=== PATIENT | female | born 1940 | race Hispanic/Latino ===

== ENCOUNTER 2016-07-22 11:50 | Emergency (ER) | payer MEDICARE, OTHER ==
[2016-07-22 12:05] VITALS: BMI 35.4
[2016-07-22 12:07] VITALS: TEMP 97.5
--- NOTE | 2016-07-22 12:20 | ED PDOC ---
Arrival/HPI - General Chief Complaint: ENT Problem Time Seen by Provider: 07/22/16 12:09 Historian: Patient - History of Present Illness Narrative History of Present Illness (Text): 07/22/16 12:17 76 y/o female, pmh including htn/copd/hyperlipidemia, allergic to fluoroquinolones, c/o throat pain x 2 days. Aching throat pain, aggravated by swallowing, no coughing, no fever or chills, no bodyache or fatigue, no night sweat, no palpitation, no numbness or tingling, no dizziness, no change in appetize or energy level, no change in speech, no abdominal pain, no other medical or psychological complaints. Past Medical History - Provider Review Nursing Documentation Reviewed: Yes - Infectious Disease Hx of Infectious Diseases: None - Tetanus Immunization Tetanus Immunization: Unknown - Cardiac Hx Cardiac Disorders: Yes Hx Cardiac Arrhythmia: Yes Hx Circulatory Problems: Yes Hx Congestive Heart Failure: Yes Hx Hypertension: Yes Hx Peripheral Edema: Yes - Pulmonary Hx Respiratory Disorders: Yes Hx Bronchitis: Yes Hx Chronic Obstructive Pulmonary Disease (COPD): Yes Hx Emphysema: Yes Hx Respiratory Tract Infection: Yes - Neurological Hx Neurological Disorder: No Hx Dizziness: Yes Hx Migraine: Yes - HEENT Hx HEENT Disorder: Yes Hx Cataracts: Yes (PAST SX) - Renal Hx Renal Disorder: No - Endocrine/Metabolic Hx Endocrine Disorders: No Hx Hypothyroidism: Yes - Hematological/Oncological Hx Blood Disorders: No - Integumentary Hx Dermatological Disorder: No - Musculoskeletal/Rheumatological Hx Degenerative Joint Disease: Yes Hx Falls: No Hx Gout: Yes - Gastrointestinal Hx Gastrointestinal Disorders: No Hx Gall Bladder Disease: Yes - Genitourinary/Gynecological Hx Genitourinary Disorders: No - Psychiatric Hx Psychophysiologic Disorder: Yes Hx Anxiety: Yes Hx Depression: Yes Hx Substance Use: No - Surgical History Hx Cardiac Catheterization: Yes (5 years ago ??) Hx Cholecystectomy: Yes Hx Orthopedic Surgery: Yes ((R) Knee, 20 years ago) Other/Comment: 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 - Anesthesia Hx Anesthesia: No - Suicidal Assessment Feels Threatened In Home Enviroment: No Family/Social History - Physician Review Nursing Documentation Reviewed: Yes Family/Social History: Unknown Family HX Smoking Status: Former Smoker Hx Alcohol Use: No Hx Substance Use: No Allergies/Home Meds Allergies/Adverse Reactions: Allergies levofloxacin [From Levaquin] Allergy (Severe, Verified 07/22/16 12:05) ANAPHYLAXIS Home Medications: Home Meds Medication Instructions Recorded Confirmed Aspirin [Ecotrin] 81 mg PO DAILY 09/01/15 04/22/16 Atorvastatin [Lipitor] 10 mg PO DIN 09/01/15 04/22/16 Cholecalciferol (Vitamin D3) 1,000 iu PO DAILY 09/01/15 04/22/16 [Vitamin D3] Esomeprazole Magnesium [Nexium] 40 mg PO DAILY 09/01/15 04/22/16 Furosemide [Lasix] 40 mg PO BID 09/01/15 04/22/16 Levothyroxine [Synthroid] 100 mcg PO DAILY 09/01/15 04/22/16 Metoprolol Tartrate 50 mg PO .AM 09/01/15 04/22/16 Metoprolol Tartrate [Lopressor] 25 mg PO QPM 09/01/15 04/22/16 Potassium Chloride [K-Dur 20 mEq 20 meq PO DAILY 09/01/15 04/22/16 ER Tab] Albuterol/Ipratropium [Duoneb 3 1 inh INH PRN PRN 04/10/16 04/22/16 mg/0.5 mg (3 ml) UD] Fluticasone/Salmeterol 500/50 1 inh INH BID 04/10/16 04/22/16 [Advair Diskus 500/50] Review of Systems - Review of Systems Constitutional: absent: Fatigue, Fevers Eyes: absent: Vision Changes ENT: Sore Throat. absent: Hearing Changes Respiratory: absent: SOB Cardiovascular: absent: Chest Pain Gastrointestinal: absent: Abdominal Pain, Nausea, Vomiting Skin: absent: Rash, Pruritis, Skin Lesions, Laceration, Abscess, Ulcer, Cellulitis Neurological: absent: Headache, Dizziness, Focal Weakness, Gait Changes, Speech Changes, Facial Droop, Disequilibrium, Seizure Psychiatric: absent: Anxiety, Depression, Suicidal Ideation Physical Exam Vital Signs Reviewed: Yes Vital Signs Temp Pulse Resp BP Pulse Ox 07/22/16 12:07 97.5 F L 79 17 113/60 95 Temperature: Afebrile Blood Pressure: Normal Pulse: Regular Respiratory Rate: Normal Appearance: Positive for: Well-Appearing, Non-Toxic, Comfortable Pain Distress: Mild Mental Status: Positive for: Alert and Oriented X 3 - Systems Exam Head: Present: Atraumatic, Normocephalic Pupils: Present: PERRL Extroacular Muscles: Present: EOMI Conjunctiva: Present: Normal Mouth: Present: Moist Mucous Membranes, Normal Lips, Normal Tounge. No: Trismus Pharnyx: Present: ERYTHEMA. No: EXUDATE, TONSILS ENLARGED, Peritonsilar Swelling, Uvular Deviation, Muffled/Hoarse Voice, Strider, Soft Palate/Uvular Edema Nose (External): Present: Atraumatic. No: Abrasion, Contusion, Laceration Nose (Internal): Present: Normal Inspection, No Active Bleeding. No: Rhinorrhea , Septal Hematoma, Epistaxis Neck: Present: Normal Range of Motion, Lymphadenopathy (lt. anterior cervical), Trachea Midline. No: Meningeal Signs, MIDLINE TENDERNESS, Paraspinal Tenderness , Bruit Respiratory/Chest: Present: Clear to Auscultation, Good Air Exchange. No: Respiratory Distress, Accessory Muscle Use, Wheezes, Decreased Breath Sounds, Rales, Retracting, Rhonchi, Tachypneic, Tender to Palpation, Other Cardiovascular: Present: Regular Rate and Rhythm, Normal S1, S2. No: Murmurs Abdomen: Present: Normal Bowel Sounds. No: Tenderness, Distention, Peritoneal Signs, Rebound, Guarding Back: Present: Normal Inspection Upper Extremity: Present: Normal Inspection. No: Cyanosis, Edema Lower Extremity: Present: Normal Inspection. No: Edema Neurological: Present: GCS=15, Speech Normal, Motor Func Grossly Intact, Gait Normal, Memory Normal Skin: Present: Warm, Dry, Normal Color. No: Rashes Psychiatric: Present: Alert, Oriented x 3, Normal Insight, Normal Concentration Medical Decision Making ED Course and Treatment: 07/22/16 12:20 -rapid strept -observe and reassess 07/22/16 13:09 -rapid strept is negative, there is mild regional lymphenapathy, will put on the amoxicillin. -Discharge home with amoxicillin, tylenol, salt water gargling, soft food diet, stay hydrated, bed rest, follow up with your own pmd and ENT within 2 days, return to the ER for any new or worsening signs or symptoms. - Lab Interpretations Lab Results: Lab Results 07/22/16 12:15: Grp A Beta Strep Ag Negative I have reviewed the lab results: Yes Interpretation: No clinic. 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 Disposition/Present on Arrival - Present on Arrival Any Indicators Present on Arrival: No History of DVT/PE: No History of Uncontrolled Diabetes: No Urinary Catheter: No History of Decub. Ulcer: No History Surgical Site Infection Following: None - Disposition Have Diagnosis and Disposition been Completed?: Yes Diagnosis: Pharyngitis Disposition: HOME/ ROUTINE Disposition Time: 13:10 Patient Plan: Discharge Condition: GOOD Additional Instructions: Discharge home with amoxicillin, tylenol, salt water gargling, soft food diet, stay hydrated, bed rest, follow up with your own pmd and ENT within 2 days, return to the ER for any new or worsening signs or symptoms. Prescriptions: Amoxicillin 500 mg PO TID #30 tab Acetaminophen [Tylenol 325mg tab] 2 tab PO QID PRN #30 tab PRN Reason: Other Referrals: Jesus Coleman DO [[facility]] - Follow up with primary [facility] [Outside] - Follow up with primary Forms: WORK NOTE
[2016-07-22 13:36] VITALS: BP 116/63; PULSE 84; RESP 16; O2SAT 96
== END 2016-07-22 13:25 | disposition home or self-care (01) ==
LOC: ED 11:50
DX: J02.9 Acute pharyngitis, unspecified (principal); Z87.891 Personal history of nicotine dependence

== ENCOUNTER 2016-12-10 07:03 | Day surgery (SDC) | payer MEDICARE, OTHER ==
[2016-11-29 13:50] VITALS: BMI 34.3
[2016-12-10] MEDS ORDERED: Etomidate 20 mg/10ml Inj IV ONE (09:11)
[2016-12-10] MEDS ORDERED: Propofol 10 mg/ml Inj (20 ML) ONE (09:11)
[2016-12-10] MEDS ORDERED: Lidocaine 2% Inj (20ml) ONE (09:11)
[2016-12-10] MEDS ORDERED: Sodium Chloride 0.9% 1,000 ML IV SCH (10:00)
[2016-12-10 10:44] VITALS: BP 118/64; PULSE 73; RESP 18; TEMP 97.5; O2SAT 95
== END 2016-12-10 11:27 | disposition home or self-care (01) ==
LOC: ENDO 07:03
PROVIDERS: ATTEND Internal Medicine Gastroenterology
DX: Z12.11 Encounter for screening for malignant neoplasm of colon (principal); D12.0 Benign neoplasm of cecum; K63.5 Polyp of colon; K62.1 Rectal polyp; K57.30 Diverticulosis of large intestine without perforation or abscess without bleeding; K64.8 Other hemorrhoids; K62.3 Rectal prolapse
CPT/HCPCS: 45381; 45385; 88305; J2704; J7040 ×2

== ENCOUNTER 2017-05-20 09:14 | Observation (INO) | payer MEDICARE, OTHER ==
[2017-05-20 09:25] VITALS: BMI 33.5
[2017-05-20] MEDS ORDERED: Albuterol-Ipratrop 3 mg / 0.5 (3 ml) UD IH STA (10:02)
[2017-05-20 10:08] LABS: BASO # 0.01 K/mm3 (0.0-2.0); BASO % 0.1 % (0.0-3.0); EOS # 0.2 (0.0-0.7); EOS % 2.2 % (1.5-5.0); GRAN # 4.61 (1.4-6.5); GRAN % 59.1 % (50.0-68.0); LYMPH # 2.3 (1.2-3.4); LYMPH % 28.9 % (22.0-35.0); MEAN CELL VOLUME 92.1 fl (80.0-105.0); MEAN CORPUSCULAR HEMOGLOBIN 31.3 pg (25.0-35.0); MEAN PLATELET VOLUME 11.2 fl (7.0-11.0); MONO # 0.8 (0.1-0.6); MONO % 9.7 % (1.0-6.0); RBC 4.79 10^6/uL (3.5-6.1); RED CELL DISTRIBUTION WIDTH 13.6 % (11.5-14.5); WHITE BLOOD COUNT 7.8 10^3/ul (4.5-11.0)
--- NOTE | 2017-05-20 10:15 | ED PDOC ---
Arrival/HPI - General Chief Complaint: Shortness Of Breath Time Seen by Provider: 05/20/17 09:56 Historian: Patient - History of Present Illness Narrative History of Present Illness (Text): 05/20/17 10:15 75 year old female, whose past medical history includes COPD, hypertension, rheumatic fever/ heart disease, hyperlipidemia, hypothyroidism, GERD, depression , CHF with diastolic dysfunction, and A fib s/p pacemaker, presents to the emergency department complaining of mild URI symptoms including cough congestion , shortness of breathing and wheezing for the past 4-5 days. Patient also reports bilateral lower extremity swelling and pain. She states she quit smoking 1 year ago and denies alcohol use. Patient denies any fever, chills, chest pain, abdominal pain, nausea, vomiting, diarrhea, urinary symptoms, back pain, neck pain, headache, dizziness, or any other complaints. Time/Duration: Other (2-3 days) Symptom Onset: Gradual Symptom Course: Unchanged Activities at Onset: Light Context: Home Past Medical History - Provider Review Nursing Documentation Reviewed: Yes - Infectious Disease Hx of Infectious Diseases: None - Tetanus Immunization Tetanus Immunization: Unknown - Reproductive Menopause: Yes - Cardiac Hx Cardiac Disorders: Yes Hx Congestive Heart Failure: Yes Hx Hypertension: Yes Hx Pacemaker: Yes - Pulmonary Hx Respiratory Disorders: Yes Hx Bronchitis: Yes Hx Chronic Obstructive Pulmonary Disease (COPD): Yes Hx Emphysema: Yes Hx Respiratory Tract Infection: Yes - Neurological Hx Paralysis: No - HEENT Hx HEENT Disorder: Yes Hx Cataracts: Yes (PAST SX) - Renal Hx Renal Disorder: No - Endocrine/Metabolic Hx Endocrine Disorders: No Hx Hypothyroidism: Yes - Hematological/Oncological Hx Blood Transfusions: No - Integumentary Hx Dermatological Disorder: No - Musculoskeletal/Rheumatological Hx Musculoskeletal Disorders: Yes (PINCHED NERVE L SHOULDER ON & OFF) - Gastrointestinal Hx Gastrointestinal Disorders: No Hx Gall Bladder Disease: Yes - Genitourinary/Gynecological Hx Genitourinary Disorders: No - Psychiatric Hx Emotional Abuse: No Hx Physical Abuse: No Hx Substance Use: No - Surgical History Hx Cardiac Catheterization: Yes (5 years ago ??) Hx Cholecystectomy: Yes Hx Orthopedic Surgery: Yes ((R) Knee, 20 years ago) Other/Comment: 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 - Anesthesia Hx Anesthesia: Yes Hx Anesthesia Reactions: No Hx Malignant Hyperthermia: No - Suicidal Assessment Feels Threatened In Home Enviroment: No Family/Social History - Physician Review Nursing Documentation Reviewed: Yes Family/Social History: No Known Family HX Smoking Status: Former Smoker Hx Alcohol Use: No Hx Substance Use: No Allergies/Home Meds Allergies/Adverse Reactions: Allergies levofloxacin [From Levaquin] Allergy (Severe, Verified 07/22/16 12:05) ANAPHYLAXIS Home Medications: Home Meds Medication Instructions Recorded Confirmed Aspirin [Ecotrin] 81 mg PO DAILY 09/01/15 05/20/17 Atorvastatin [Lipitor] 10 mg PO DIN 09/01/15 05/20/17 Cholecalciferol (Vitamin D3) 1,000 iu PO DAILY 09/01/15 05/20/17 [Vitamin D3] Esomeprazole Magnesium [Nexium] 40 mg PO DAILY 09/01/15 05/20/17 Furosemide [Lasix] 40 mg PO DAILY 09/01/15 05/20/17 Levothyroxine [Synthroid] 100 mcg PO DAILY 09/01/15 05/20/17 Metoprolol Tartrate 25 mg PO .AM 09/01/15 05/20/17 Metoprolol Tartrate [Lopressor] 25 mg PO QPM 09/01/15 05/20/17 Potassium Chloride [K-Dur 20 mEq 20 meq PO DAILY 09/01/15 05/20/17 ER Tab] Albuterol/Ipratropium [Duoneb 3 1 inh INH PRN PRN 04/10/16 05/20/17 mg/0.5 mg (3 ml) UD] Fluticasone/Salmeterol 500/50 1 inh INH BID 04/10/16 05/20/17 [Advair Diskus 500/50] Review of Systems - Physician Review All systems were reviewed & negative as marked: Yes - Review of Systems Constitutional: absent: Fevers, Other (Chills) Respiratory: SOB, Wheezing, Other (cough congestion) Cardiovascular: absent: Chest Pain Gastrointestinal: absent: Abdominal Pain, Diarrhea, Nausea, Vomiting Genitourinary Female: absent: Dysuria, Frequency, Hematuria Musculoskeletal: absent: Back Pain, Neck Pain Neurological: absent: Headache, Dizziness Physical Exam Vital Signs Reviewed: Yes Vital Signs Temp Pulse Resp BP Pulse Ox 05/20/17 16:12 78 122/69 05/20/17 12:20 82 18 116/66 96 05/20/17 09:25 97 F L 74 18 126/55 L 98 Temperature: Afebrile Blood Pressure: Normal Pulse: Regular Respiratory Rate: Normal Appearance: Positive for: Well-Appearing, Non-Toxic, Comfortable Pain Distress: None Mental Status: Positive for: Alert and Oriented X 3 - Systems Exam Head: Present: Atraumatic, Normocephalic Pupils: Present: PERRL Extroacular Muscles: Present: EOMI Conjunctiva: Present: Normal Mouth: Present: Moist Mucous Membranes Neck: Present: Normal Range of Motion Respiratory/Chest: Present: Wheezes (Mild wheezing bilaterally ). No: Respiratory Distress, Accessory Muscle Use, Rales, Rhonchi Cardiovascular: Present: Regular Rate and Rhythm, Normal S1, S2. No: Murmurs Abdomen: Present: Normal Bowel Sounds. No: Tenderness, Distention, Peritoneal Signs Back: Present: Normal Inspection Upper Extremity: Present: Normal Inspection. No: Cyanosis, Edema Lower Extremity: Present: Normal Inspection, Edema (Bilateral lower extremity trace edema), Other (Bilateral lower leg blanching, erythema, and tenderness. ) Neurological: Present: GCS=15, CN II-XII Intact, Speech Normal Skin: Present: Warm, Dry, Normal Color. No: Rashes Psychiatric: Present: Alert, Oriented x 3, Normal Insight, Normal Concentration Medical Decision Making ED Course and Treatment: 05/20/17 10:15 Impression: 76 year old female presents complaining of URI symptoms cough congestions associated with shortness of breath, wheezing, and bilateral lower extremity swelling and pain that began 4-5 days ago. Plan: -- EKG -- Labs -- Chest X-ray -- Duoneb -- Influenza A B -- Duplex Lower Extrem Makeda Bilat US -- Reassess and disposition Prior Visits: Notes and results from previous visits were reviewed. Patient was last seen in the emergency department on 07/22/16 presents complaining of throat pain for that fast 2 days. patient was discharged. Progress Notes: 05/20/17 13:[address] Solomon who is aware with the plan and wants hospitalist to admit. 05/20/17 13:37 EKG shows normal sinus rhythm rate approximately 75 with a primary AV block and nonspecific T-wave changes with no acute changes 05/20/17 16:42 X-ray chest 1 view shows no infiltrate effusion or cardiomegaly. - Lab Interpretations Lab Results: 05/20/17 09:45 05/20/17 10:46 Lab Results 05/20/17 10:46: Sodium 137, Potassium 2.8 L* D, Chloride 88 L, Carbon Dioxide 35 H, Anion Gap 17, BUN 29 H, Creatinine 1.0, Est GFR ( Amer) > 60, Est GFR (Non-Af Amer) 54, Random Glucose 135 H, Calcium 10.7 H, Total Bilirubin 0.8 , AST 30, ALT 26, Alkaline Phosphatase 106, Lactate Dehydrogenase 430, Total Creatine Kinase 82, Troponin I < 0.01, NT-Pro-B Natriuret Pep 125, Total Protein 8.1, Albumin 4.6, Globulin 3.5, Albumin/Globulin Ratio 1.3 05/20/17 10:00: Influenza Typ A,B (EIA) Negative for flu a/b 05/20/17 09:45: PT 11.4, INR 0.99, APTT 33.9 05/20/17 09:45: WBC 7.8, RBC 4.79, Hgb 15.0, Hct 44.1, MCV 92.1, MCH 31.3, MCHC 34.0, RDW 13.6, Plt Count 210, MPV 11.2 H, Gran % 59.1, Lymph % (Auto) 28.9, York % (Auto) 9.7 H, Eos % (Auto) 2.2, Baso % (Auto) 0.1, Gran # 4.61, Lymph # 2.3, York # 0.8 H, Eos # 0.2, Baso # 0.01 I have reviewed the lab results: Yes - RAD Interpretation Radiology Orders: 05/20/17 09:57 CHEST PORTABLE [RAD] Stat 05/20/17 10:03 DUPLEX LOWER EXTRM VEIN BILAT [US] Stat Bilateral lower extremity venous Doppler is read by the radiologist is negative for DVT. Library Monitor: Radiologist - EKG Interpretation Interpreted by ED Physician: Yes Type: 12 lead EKG - Medication Orders Current Medication Orders: Acetylcysteine (Acetylcysteine 20%) 4 ml IH [id number] GRETEL Albuterol/Ipratropium (Duoneb 3 Mg/0.5 Mg (3 Ml) Ud) 3 ml IH Q2H PRN PRN Reason: Shortness of Breath Albuterol/Ipratropium (Duoneb 3 Mg/0.5 Mg (3 Ml) Ud) 3 ml IH [id number] [facility] Last Admin: 05/20/17 16:14 Dose: 3 ml Alprazolam (Xanax) 0.25 mg PO BID PRN; Protocol PRN Reason: Anxiety Stop: 05/27/17 14:48 Aspirin (Ecotrin) 81 mg PO DAILY [facility] Last Admin: 05/20/17 16:12 Dose: 81 mg Atorvastatin Calcium (Lipitor) 10 mg PO DIN [facility] Azithromycin (Zithromax) 250 mg PO DAILY [facility] PRN Reason: Protocol Stop: 05/23/17 10:01 Last Admin: 05/20/17 16:23 Dose: 250 mg Benzocaine/Menthol (Cepacol Sore Throat) 1 doc MT Q2H PRN PRN Reason: Sore Throat Cholecalciferol (Vitamin D) 1,000 intlu PO DAILY [facility] Last Admin: 05/20/17 16:30 Dose: 1,000 intlu Furosemide (Lasix) 40 mg PO DAILY [facility] Guaifenesin/Dextromethorphan (Robitussin Dm) 5 ml PO Q4H PRN PRN Reason: Cough Heparin Sodium (Porcine) (Heparin) 5,000 units SC Q12 [facility] PRN Reason: Protocol Ceftriaxone Sodium (Rocephin 2 Gm Ivpb) 2 gm in 100 mls @ 100 mls/hr IVPB DAILY [facility] PRN Reason: Protocol Stop: 05/24/17 10:59 Levothyroxine Sodium (Synthroid) 100 mcg PO DAILY [facility] Last Admin: 05/20/17 16:30 Dose: 100 mcg Metoprolol Tartrate (Lopressor) 25 mg PO QPM [facility] Metoprolol Tartrate (Lopressor) 25 mg PO .AM [facility] Last Admin: 05/20/17 16:12 Dose: 25 mg MAR Pulse and Blood Pressure Document 05/20/17 16:12 LA (Rec: 05/20/17 16:14 LA [id number]) Pulse Pulse Rate (60-90) 78 Blood Pressure Blood Pressure (100/60-150/90) 122/69 Montelukast Sodium (Singulair) 10 mg PO HS [facility] Pantoprazole Sodium (Protonix Ec Tab) 40 mg PO 0600 [facility] Potassium Chloride (K-Dur 20 Meq Er Tab) 20 meq PO DAILY [facility] Last Admin: 05/20/17 16:12 Dose: 20 meq Discontinued Medications Albuterol/Ipratropium (Duoneb 3 Mg/0.5 Mg (3 Ml) Ud) 3 ml IH ONCE STA Stop: 05/20/17 10:03 Last Admin: 05/20/17 10:16 Dose: 3 ml Potassium Chloride (Potassium Chloride Oral Soln) 40 meq PO STAT STA Stop: 05/20/17 12:02 Last Admin: 05/20/17 12:16 Dose: 40 meq Potassium Chloride (Potassium Chloride Oral Soln) 20 meq PO STAT STA Stop: 05/20/17 12:02 Last Admin: 05/20/17 12:17 Dose: 20 meq - Scribe Statement The provider has reviewed the documentation as recorded by the Blayne Padilla Provider Scribe Attestation: All medical record entries made by the Chikiibyazan were at my direction and personally dictated by me. I have reviewed the chart and agree that the record accurately reflects my personal performance of the history, physical exam, medical decision making, and the department course for this patient. I have also personally directed, reviewed, and agree with the discharge instructions and disposition. Disposition/Present on Arrival - Present on Arrival Any Indicators Present on Arrival: No History of DVT/PE: No History of Uncontrolled Diabetes: No Urinary Catheter: No History of Decub. Ulcer: No History Surgical Site Infection Following: None - Disposition Have Diagnosis and Disposition been Completed?: Yes Diagnosis: COPD exacerbation, CHF exacerbation, Hypokalemia, Dyspnea Disposition: HOSPITALIZED Disposition Time: 13:38 Patient Plan: Observation, Telemetry Patient Problems: Current Active Problems Problem Status Onset CHF exacerbation Acute COPD exacerbation Acute Dyspnea Acute Hypokalemia Acute Condition: IMPROVED
[2017-05-20 10:33] LABS: INR 0.99 (0.93-1.08); PARTIAL THROMBOPLASTIN TIME 33.9 Seconds (25.1-36.5); PROTHROMBIN TIME 11.4 SECONDS (9.4-12.5)
[2017-05-20 11:07] LABS: ALB/GLOB RATIO 1.3 (1.1-1.8); ALBUMIN 4.6 g/dL (3.0-4.8); ALT/SGPT 26 U/L (7-56); AST/SGOT 30 U/L (14-36); BLOOD UREA NITROGEN 29 mg/dL (7-21); CALCIUM 10.7 mg/dL (8.4-10.5); GFR AFRICAN-AMERICAN > 60; GFR NON-AFRICAN AMERICAN 54
[2017-05-20 11:11] LABS: B-TYPE NATRIURETIC PEPTIDE 125 pg/mL (0-450); TROPONIN I < 0.01 ng/mL
[2017-05-20] MEDS ORDERED: Potassium Chloride 40 mEq/30 ml LIQ UD PO STA (12:01)
[2017-05-20] MEDS ORDERED: Potassium Chloride 20 mEq/15 ml LIQ UD PO STA (12:01)
--- NOTE | 2017-05-20 14:07 | RAD ---
HISTORY: shortness of breath COMPARISON: 05/29/2016 FINDINGS: LUNGS: No active pulmonary disease. PLEURA: No significant pleural effusion identified, no pneumothorax apparent. CARDIOVASCULAR: Normal. OSSEOUS STRUCTURES: No significant abnormalities. VISUALIZED UPPER ABDOMEN: Normal. OTHER FINDINGS: Dual lead pacemaker IMPRESSION: No active disease.
[2017-05-20] MEDS ORDERED: Albuterol-Ipratrop 3 mg / 0.5 (3 ml) UD IH PRN (14:51)
[2017-05-20] MEDS ORDERED: Non Formulary Medication (Furosemide [Lasix] 40 MG) PO SCH (15:00)
--- NOTE | 2017-05-20 15:00 | CP.PCM.HP ---
<Byron Cortes - Last Filed: 05/20/17 21:45> History of Present Illness - History of Present Illness History of Present Illness: Byron Cortes PGY 1 IM H&P Note Ms. Kimball is a 76 yo female with a PMH of COPD, CHF, hypertension, rheumatic fever as a child w/ heart disease sequela, hyperlipidemia, hypothyroidism, GERD , depression, gout, colonic polyps s/p multiple polypectomies and arrhythmia ( unclear if Afib or not) s/p pacemaker who presents with 5 days of weakness, shortness of breath, and productive cough. Patients states that she went to see Dr. Solomon (PMD and Agricultural Agent) about 5 days ago and he changed her diuretic medication and placed on her on potassium supplementation. She states that 3 days ago, she woke up feeling weak but attributed it to dehydration from her increased urination 2/2 the diuretic and hydrated herself and felt better. She also states that she was prescribed Zpak and finished 2 days of it so far. She states that this morning, she felt weak, got short of breath and had a cough/ congestion. At baseline, she has swollen legs and is short of breath with exertion (1/2 block before dyspnea, requires multiple pillows for sleep and cannot lay flat), and these symptoms have not been exacerbated. She states that she gets these episodes when the weather changes, about three times a year. 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 She is compliant with her medications at home, and uses CPAP at night. Patient denies chest pain, headaches, changes in vision/hearing, abdominal pain, weakness, numbness/ tingling, n/v/d, fevers/chills. 12-pt ROS was reviewed and is otherwise unremarkable. PMD: Dr. Solomon PMH: as above PSH: cholecystectomy, R knee surgery, pacemaker Meds: Reviewed on JUN ALL: Levofloxacin SHx: former smoker (quit 1 yr ago), social ETOH use, denies drug use; uses cane for assistance; lives with daughter who has sick kids at home FHx: Heart disease on both sides Present on Admission - Present on Admission Any Indicators Present on Admission: No Review of Systems - Review of Systems All systems: reviewed and no additional remarkable complaints except (as per HPI ) Past Patient History - Infectious Disease Hx of Infectious Diseases: None - Tetanus Immunizations Tetanus Immunization: Unknown - Past Medical History & Family History Past Medical History?: Yes - Past Social History Smoking Status: Former Smoker Alcohol: Social Drugs: Denies Home Situation {Lives}: With Family - CARDIAC Hx Cardiac Disorders: Yes Hx Congestive Heart Failure: Yes Hx Hypercholesterolemia: Yes Hx Hypertension: Yes Hx Pacemaker: Yes - PULMONARY Hx Respiratory Disorders: Yes Hx Chronic Obstructive Pulmonary Disease (COPD): Yes Hx Respiratory Tract Infection: Yes - NEUROLOGICAL Hx Neurological Disorder: No Hx Paralysis: No - HEENT Hx HEENT Problems: Yes Hx Cataracts: Yes (PAST SX) - RENAL Hx Chronic Kidney Disease: No - ENDOCRINE/METABOLIC Hx Hypothyroidism: Yes - HEMATOLOGICAL/ONCOLOGICAL Hx Blood Disorders: No Hx Blood Transfusions: No - INTEGUMENTARY Hx Dermatological Problems: No - MUSCULOSKELETAL/RHEUMATOLOGICAL Hx Musculoskeletal Disorders: Yes (PINCHED NERVE L SHOULDER ON & OFF) - GASTROINTESTINAL Hx Gastrointestinal Disorders: No Hx Gall Bladder Disease: Yes Other/Comment: multiple colon polyps s/p colonoscopies and removal - GENITOURINARY/GYNECOLOGICAL Hx Genitourinary Disorders: No - PSYCHIATRIC Hx Psychophysiologic Disorder: No Hx Emotional Abuse: No Hx Physical Abuse: No Hx Substance Use: No - SURGICAL HISTORY Hx Cardiac Catheterization: Yes (5 years ago ??) Hx Cholecystectomy: Yes Hx Orthopedic Surgery: Yes ((R) Knee, 20 years ago) Other/Comment: 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 - ANESTHESIA Hx Anesthesia: Yes Hx Anesthesia Reactions: No Hx Malignant Hyperthermia: No Meds Allergies/Adverse Reactions: Allergies Allergy/AdvReac Type Severity Reaction Status Date / Time levofloxacin [From Levaquin] Allergy Severe ANAPHYLAXIS Verified 07/22/16 12:05 Physical Exam - Constitutional Appears: Well, Non-toxic, No Acute Distress - Head Exam Head Exam: ATRAUMATIC, NORMAL INSPECTION - Eye Exam Eye Exam: EOMI, Normal appearance, PERRL Pupil Exam: NORMAL ACCOMODATION - ENT Exam ENT Exam: Mucous Membranes Moist, Normal Exam - Neck Exam Neck exam: Positive for: Normal Inspection. Negative for: Lymphadenopathy, Tenderness - Respiratory Exam Respiratory Exam: Rhonchi, Wheezes, NORMAL BREATHING PATTERN. absent: Accessory Muscle Use, Rales, Respiratory Distress - Cardiovascular Exam Cardiovascular Exam: RRR, +S1, +S2 - GI/Abdominal Exam GI & Abdominal Exam: Normal Bowel Sounds, Soft. absent: Distended, Tenderness - Extremities Exam Extremities exam: Positive for: full ROM, pedal edema (1+), pedal pulses present. Negative for: calf tenderness, joint swelling - Back Exam Back exam: NORMAL INSPECTION - Neurological Exam Neurological exam: Alert, CN II-XII Intact, Oriented x3 - Psychiatric Exam Psychiatric exam: Normal Affect, Normal Mood - Skin Skin Exam: Normal Color, Warm Additional comments: b/l LE erythema Results - Vital Signs Recent Vital Signs: Last Vital Signs Temp 97 F L 05/20/17 09:25 Pulse 82 05/20/17 12:20 Resp 18 05/20/17 12:20 BP 116/66 05/20/17 12:20 Pulse Ox 96 05/20/17 12:20 - Labs Result Diagrams: 05/20/17 09:45 05/20/17 10:46 Assessment & Plan - Assessment and Plan (Free Text) Assessment: 76 yo female with a PMH of COPD, CHF, hypertension, rheumatic fever as a child w / heart disease sequela, hyperlipidemia, hypothyroidism, GERD, depression, gout , colonic polyps s/p multiple polypectomies and arrhythmia (unclear if Afib or not) s/p pacemaker who presents with 5 days of weakness, shortness of breath, and productive cough likely 2/2 COPD exacerbation. Despite hx of CHF, BNP is not elevated, no crackles heard on exam and CXR is unremarkable making CHF exacerbation less likely. Troponin I x1 negative and EKG showed sinus rhythm with 1st degree AV block. Flu was negative. Plan: 1. SOB and cough 2/2 COPD exacerbation - Duoneb GRETEL and PRN - Mucomyst GRETEL - Rocephin and Zithromax - cont Cepacol, Robitussin, and Singulair - keep head of bed elevated - strict I/O - CPAP HS - pulm consulted, recs appreciated 2. Leg erythema and swelling likely 2/2 poor vascular circulation - LE US negative for DVT 3. Hx CHF - cont home Lasix - strict I/O - no baseline echo, so will order echo - AE hose ordered - Cardio consulted, recs appreciated 4. Hypokalemia likely 2/2 diuretic use - continue K-Dur daily - supplement as needed - cont to monitor 5. Hx HTN - cont to monitor 6. Hx HLD - Lipitor 7. HX arryhthmia - cont Lopressor home dose 25mg PO AMHS 8. Hx Hypothyroid - cont synthroid 9. PPX - PTX for GI PPX - Heparin for DVT PPX Patient was seen, examined and discussed with attending, Dr. Cathy Cortes Y1 <Destinee Morgan - Last Filed: 05/21/17 19:00> Results - Vital Signs Recent Vital Signs: Last Vital Signs Temp 97.6 F 05/21/17 12:00 Pulse 86 05/21/17 14:00 Resp 20 05/21/17 12:00 BP 129/65 05/21/17 14:06 Pulse Ox 97 05/21/17 06:00 - Labs Result Diagrams: 05/21/17 06:45 05/21/17 06:45 Labs: Laboratory Results - last 24 hr 05/20/17 05/21/17 05/21/17 22:52 06:30 06:30 WBC RBC Hgb Hct MCV MCH MCHC RDW Plt Count MPV Sodium 137 Potassium 3.1 L Chloride 87 L Carbon Dioxide 37 H Anion Gap 16 BUN 31 H Creatinine 1.3 H Est GFR ( Amer) 48 Est GFR (Non-Af Amer) 40 Random Glucose 129 H Hemoglobin A1c Calcium 11.1 H Phosphorus 3.7 Magnesium 1.9 Total Bilirubin AST ALT Alkaline Phosphatase Total Protein Albumin Globulin Albumin/Globulin Ratio Triglycerides 141 Cholesterol 180 LDL Cholesterol Direct 96 HDL Cholesterol 54 TSH 3rd Generation 4.99 H 05/21/17 05/21/17 05/21/17 06:45 06:45 10:30 WBC 9.2 RBC 4.59 Hgb 13.9 Hct 42.0 MCV 91.5 MCH 30.3 MCHC 33.1 RDW 13.9 Plt Count 209 MPV 10.8 Sodium 140 Potassium 3.8 Chloride 93 L Carbon Dioxide 35 H Anion Gap 16 BUN 31 H Creatinine 1.0 Est GFR ( Amer) > 60 Est GFR (Non-Af Amer) 54 Random Glucose 144 H Hemoglobin A1c 6.2 Calcium 10.7 H Phosphorus Magnesium Total Bilirubin 0.6 AST 26 ALT 24 Alkaline Phosphatase 106 Total Protein 7.7 Albumin 4.3 Globulin 3.4 Albumin/Globulin Ratio 1.3 Triglycerides Cholesterol LDL Cholesterol Direct HDL Cholesterol TSH 3rd Generation Attending/Attestation - Attestation I have personally seen and examined this patient.: Yes I have fully participated in the care of the patient.: Yes I have reviewed all pertinent clinical information: Yes Notes (Text): I have seen and examined the patient at bedside. Agree with the above note with the following additions/ exceptions: Briefly this is 76 year old female with history of COPD, CHF (unknown if systolic or diastolic), hypertension, hyperlipidemia, hypothyroidism, GERD, depression, gout, colonic polyps s/p multiple polypectomies and s/p pacemaker who came for eval of COPD exacerbation. Patient was started on IV solumedrol, IV antibiotics, cepachol and robitussin. Echo will be ordered. She also has hypokalemia which will be replaced. Upon discharge patient will follow up with Dr Solomon. Dr Destinee Morgan
--- NOTE | 2017-05-20 15:50 | US ---
HISTORY: Leg pain and swelling. Evaluate for DVT PHYSICIAN(S): Valentin Mai MD. TECHNIQUE: Duplex sonography and color-flow Doppler with graded compression were used to evaluate the deep venous systems of both lower extremities. FINDINGS: The visualized deep venous systems of both lower extremities are sonographically normal and compressible. Normal wave forms and augmentation are seen. There is no sonographic evidence for deep venous thrombosis in the visualized segments of both lower extremities. IMPRESSION: No sonographic evidence for deep venous thrombosis in the visualized segments of both lower extremities.
[2017-05-20] MEDS ORDERED: guaiFENesin DM 100 mg-10 mg/5 ml UD PO PRN (16:01)
[2017-05-20] MEDS ORDERED: Benzocaine/Menthol (Cepacol) Lozenge MT PRN (16:01)
[2017-05-20] MEDS: Potassium Chloride 20 mEq ER Tab PO SCH (16:12)
[2017-05-20] MEDS: Albuterol-Ipratrop 3 mg / 0.5 (3 ml) UD IH SCH ×2 (16:14→21:36)
[2017-05-20] MEDS: Cholecalciferol 1,000 INTLU TAB PO SCH (16:30)
[2017-05-20] MEDS: Levothyroxine 100 MCG TAB PO SCH (16:30)
[2017-05-20] MEDS: cefTRIAXone 2 GM IN NS 2 GM/100 ML BAG IVPB SCH (17:09)
--- NOTE | 2017-05-20 17:26 | CARD ---
APPROVED REPORT EKG Measurement Heart [id number] <Conclusion> Sinus rhythm with 1st degree AV block Rightward axis T wave abnormality, consider anterior ischemia Abnormal ECG
[2017-05-20 23:12] LABS: CALCIUM 11.1 mg/dL (8.4-10.5); MAGNESIUM 1.9 mg/dL (1.7-2.2)
[2017-05-20] MEDS ORDERED: Potassium Chloride 40 mEq/30 ml LIQ UD PO ONE (23:33)
[2017-05-21] MEDS: Albuterol-Ipratrop 3 mg / 0.5 (3 ml) UD IH SCH ×4 (00:30→12:09)
[2017-05-21] MEDS: Acetylcysteine 20% Inhal Soln (4ml) IH SCH ×3 (00:31→08:25)
[2017-05-21] MEDS ORDERED: Potassium Chloride 20 mEq ER Tab PO STA (05:11)
[2017-05-21] MEDS ORDERED: Sodium Chloride 0.9% 1,000 ML IV SCH (05:15)
[2017-05-21] MEDS ORDERED: Pantoprazole 40 mg EC Tab PO SCH (06:00)
[2017-05-21 06:14] VITALS: O2SAT 97
[2017-05-21 07:24] LABS: HEMOGLOBIN 13.9 g/dL (12.0-16.0); MEAN CELL VOLUME 91.5 fl (80.0-105.0); MEAN CORPUSCULAR HEMOGLOBIN 30.3 pg (25.0-35.0); MEAN CORPUSCULAR HGB CONC 33.1 g/dl (31.0-37.0); MEAN PLATELET VOLUME 10.8 fl (7.0-11.0); RBC 4.59 10^6/uL (3.5-6.1); RED CELL DISTRIBUTION WIDTH 13.9 % (11.5-14.5); WHITE BLOOD COUNT 9.2 10^3/ul (4.5-11.0)
[2017-05-21] MEDS ORDERED: Budesonide 0.5 mg/2 ml Inhal Susp UD IH SCH (08:00)
[2017-05-21 08:02] LABS: ALB/GLOB RATIO 1.3 (1.1-1.8); ALBUMIN 4.3 g/dL (3.0-4.8); ALT/SGPT 24 U/L (7-56); AST/SGOT 26 U/L (14-36); BLOOD UREA NITROGEN 31 mg/dL (7-21); CALCIUM 10.7 mg/dL (8.4-10.5); GFR AFRICAN-AMERICAN > 60; GFR NON-AFRICAN AMERICAN 54
[2017-05-21] MEDS: Potassium Chloride 20 mEq ER Tab PO SCH (09:20)
[2017-05-21] MEDS: Levothyroxine 100 MCG TAB PO SCH (09:21)
[2017-05-21] MEDS: Cholecalciferol 1,000 INTLU TAB PO SCH (09:21)
[2017-05-21] MEDS ORDERED: Potassium Chloride 20 mEq ER Tab PO ONE ×2 (09:53→15:00)
[2017-05-21] MEDS ORDERED: MethylPREDNISolone 40 mg Vial IVP SCH (10:00)
[2017-05-21] MEDS: cefTRIAXone 2 GM IN NS 2 GM/100 ML BAG IVPB SCH (10:01)
[2017-05-21 10:50] LABS: HDL CHOLESTEROL 54 mg/dL (29-60)
[2017-05-21 11:00] LABS: LDL CHOLESTEROL 96 mg/dL (0-129)
--- NOTE | 2017-05-21 12:05 | CON ---
DATE: 05/21/2017 PULMONARY CONSULTATION REASON FOR CONSULTATION: Chronic obstructive pulmonary disease. REFERRING PHYSICIAN: Jefferson Joe MD HISTORY OF PRESENT ILLNESS: The patient is a 76-year-old female, with past medical history significant for advanced chronic obstructive pulmonary disease, positive extensive smoking history, congestive heart failure, cardiac arrhythmias, and status post pacemaker insertion, who presents to [facility] with increasing shortness of breath at rest, dyspnea on exertion, cough, and sputum production for the past 5 days. There is no history of chest pain, coughing up of blood or chest pain - made worse with deep respirations. There is no history of temperatures, chills or infectious exposure. There is no history of night sweats, weight loss or appetite change prior to the above events. No history of calf pains. No history of syncope or diaphoresis. No history of recent travel or trauma. REVIEW OF SYSTEMS: No history of nausea, vomiting or diarrhea. No acute urinary symptoms. No new neurologic or musculoskeletal complaints. Rest of the review of systems is negative. ALLERGIES: LEVAQUIN. SOCIAL HISTORY: Positive for extensive tobacco usage. No alcohol. FAMILY HISTORY: No inheritable diseases. HOME MEDICATIONS: Include DuoNebs, Lopressor, Synthroid, Lasix, Advair, Nexium, Lipitor, Ecotrin, and Xanax. PHYSICAL EXAMINATION: GENERAL: The patient is not short of breath at rest. She is not using accessory muscles for breathing. VITAL SIGNS: Temperature is 97.9, pulse is 88, respirations are 18, and blood pressure is 125/64. Oxygen saturation on nasal cannula is 97%. HEENT: Normocephalic, atraumatic. NECK: No JVD. CARDIOVASCULAR: Systolic ejection murmur at the lower left sternal border. No S3 gallop. LUNGS: Decreased breath sounds at the bases. Minimal rhonchi. Minimal wheezing. EXTREMITIES: Mild edema. No cyanosis, no clubbing. Calves are nontender to palpation. GASTROINTESTINAL: Abdomen is soft, nontender, and nondistended. Bowel sounds are positive. SKIN: No acute rash. NEUROLOGIC: Limited at the present time. PERTINENT LABORATORY DATA: Chest x-ray was done yesterday and reviewed. There is no active disease present. CBC: White count 7.8, hemoglobin 15.0, hematocrit of 44.1, and platelets of 210,000. Complete metabolic profile: Potassium 3.1, chloride 87, carbon dioxide 37, BUN 31, creatinine 1.3, glucose 129, and calcium 11.1. Rest of the metabolic profile is within normal limits. IMPRESSION: 1. Acute bronchitis. 2. Advanced chronic obstructive pulmonary disease. 3. Renal insufficiency. 4. Cardiac arrhythmias. PLAN: The patient presents to [facility] with a 5-day history of worsening pulmonary symptoms. I did review the chest x-ray as above. The chest x-ray shows no acute disease. On physical exam, there is [id number] bronchospasm noted. However, there is no significant alveolar-arterial gradient. Oxygen saturation on nasal cannula is currently 97%. I will continue with the current nebulizer treatments and add inhaled Pulmicort this morning. I will also add low-dose intravenous steroids for the time being. The patient has been placed on antibiotic therapy. There are no temperatures noted. There is no leukocytosis. Cardiology evaluation with Dr. Solomon has been requested. The patient does feel better this morning and is clinically improved - compared to the past few days. I will discuss the above with the attending physician. Thank you very much for this pulmonary consultation. Giovanni Rogers MD MTDD
[2017-05-21 12:21] VITALS: RESP 20; TEMP 97.6
--- NOTE | 2017-05-21 12:24 | CP.PCM.PN ---
Subjective - Date & Time of Evaluation Date of Evaluation: 05/21/17 Time of Evaluation: 10:18 - Subjective Subjective: Byron Cortes IM Progress Note Patient was seen and examined at bedside with family member in room. Patient states that she feels better and that her cough and shortness of breath have improved with the breathing treatments but that her legs are swelling up a bit. Patient denies any chest pain, abdominal pain, fevers/chills, n/v/d. Also states that she was seen by Dr. Rogers who started her on steroids but that she feels loopy when on too high a dose of steroids. Patient was also seen by Dr. Levine. Per Dr. Solomon who spoke with Dr. Levine, the patient is cleared from cardiology for discharge and that symptoms are likely 2/2 COPD exacerbation. Patient will follow up with them once she feels better for a follow up stress test. Objective - Vital Signs/Intake and Output Vital Signs (last 24 hours): Temp Pulse Resp BP Pulse Ox 97.6 F 76 20 96/57 L 97 05/21/17 12:00 05/21/17 12:00 05/21/17 12:00 05/21/17 12:00 05/21/17 06:00 - Medications Medications: Current Medications Acetylcysteine (Acetylcysteine 20%) 4 ml IH [id number] [facility] Last Admin: 05/21/17 08:25 Dose: Not Given Albuterol/Ipratropium (Duoneb 3 Mg/0.5 Mg (3 Ml) Ud) 3 ml IH Q2H PRN PRN Reason: Shortness of Breath Albuterol/Ipratropium (Duoneb 3 Mg/0.5 Mg (3 Ml) Ud) 3 ml IH [id number] [facility] Last Admin: 05/21/17 12:09 Dose: Not Given Alprazolam (Xanax) 0.25 mg PO BID PRN; Protocol PRN Reason: Anxiety Stop: 05/27/17 14:48 Aspirin (Ecotrin) 81 mg PO DAILY [facility] Last Admin: 05/21/17 09:21 Dose: 81 mg Atorvastatin Calcium (Lipitor) 10 mg PO DIN [facility] Last Admin: 05/20/17 17:54 Dose: 10 mg Azithromycin (Zithromax) 250 mg PO DAILY [facility] PRN Reason: Protocol Stop: 05/23/17 10:01 Last Admin: 05/21/17 09:21 Dose: 250 mg Benzocaine/Menthol (Cepacol Sore Throat) 1 doc MT Q2H PRN PRN Reason: Sore Throat Budesonide (Pulmicort Respules) 0.5 mg IH [id number] [facility] Cholecalciferol (Vitamin D) 1,000 intlu PO DAILY [facility] Last Admin: 05/21/17 09:21 Dose: 1,000 intlu Furosemide (Lasix) 40 mg PO DAILY [facility] Last Admin: 05/21/17 09:21 Dose: 40 mg Furosemide (Lasix) 40 mg IV ONCE ONE Stop: 05/21/17 15:01 Guaifenesin/Dextromethorphan (Robitussin Dm) 5 ml PO Q4H PRN PRN Reason: Cough Heparin Sodium (Porcine) (Heparin) 5,000 units SC Q12 [facility] PRN Reason: Protocol Last Admin: 05/21/17 09:22 Dose: 5,000 units Ceftriaxone Sodium (Rocephin 2 Gm Ivpb) 2 gm in 100 mls @ 100 mls/hr IVPB DAILY [facility] PRN Reason: Protocol Stop: 05/24/17 10:59 Last Admin: 05/21/17 10:01 Dose: 100 mls/hr Ibuprofen (Motrin Tab) 400 mg PO Q6H PRN PRN Reason: Pain, Mild (1-3) Last Admin: 05/21/17 12:10 Dose: 400 mg Levothyroxine Sodium (Synthroid) 100 mcg PO DAILY [facility] Last Admin: 05/21/17 09:21 Dose: 100 mcg Methylprednisolone (Solu-Medrol) 30 mg IVP Q12 [facility] Last Admin: 05/21/17 09:21 Dose: 30 mg Metoprolol Tartrate (Lopressor) 25 mg PO QPM [facility] Last Admin: 05/20/17 23:00 Dose: Not Given Metoprolol Tartrate (Lopressor) 25 mg PO .AM [facility] Last Admin: 05/20/17 16:12 Dose: 25 mg Montelukast Sodium (Singulair) 10 mg PO HS [facility] Last Admin: 05/21/17 00:06 Dose: 10 mg Pantoprazole Sodium (Protonix Ec Tab) 40 mg PO 0600 [facility] Last Admin: 05/21/17 05:58 Dose: 40 mg Potassium Chloride (K-Dur 20 Meq Er Tab) 40 meq PO ONCE ONE Stop: 05/21/17 15:01 - Labs Labs: PT 11.4 SECONDS (9.4-12.5) 05/20/17 09:45 INR 0.99 (0.93-1.08) 05/20/17 09:45 APTT 33.9 Seconds (25.1-36.5) 05/20/17 09:45 - Constitutional Appears: Well, Non-toxic, No Acute Distress - Head Exam Head Exam: NORMAL INSPECTION - Eye Exam Eye Exam: EOMI, Normal appearance - ENT Exam ENT Exam: Mucous Membranes Moist - Neck Exam Neck Exam: Normal Inspection - Respiratory Exam Respiratory Exam: NORMAL BREATHING PATTERN. absent: Rales, Rhonchi, Wheezes - Cardiovascular Exam Cardiovascular Exam: RRR, +S1, +S2 - GI/Abdominal Exam GI & Abdominal Exam: Soft, Normal Bowel Sounds. absent: Distended, Tenderness - Extremities Exam Extremities Exam: Pedal Edema (1+) Additional comments: erythema - Back Exam Back Exam: NORMAL INSPECTION - Neurological Exam Neurological Exam: Alert, Awake, Oriented x3 - Psychiatric Exam Psychiatric exam: Normal Affect, Normal Mood - Skin Skin Exam: Normal Color, Warm Assessment and Plan - Assessment and Plan (Free Text) Assessment: 76 yo female with a PMH of COPD, CHF, hypertension, rheumatic fever as a child w / heart disease sequela, hyperlipidemia, hypothyroidism, GERD, depression, gout , colonic polyps s/p multiple polypectomies and arrhythmia (unclear if Afib or not) s/p pacemaker who presents with 5 days of weakness, shortness of breath, and productive cough likely 2/2 COPD exacerbation. Despite hx of CHF, BNP is not elevated, no crackles heard on exam and CXR is unremarkable making CHF exacerbation less likely. Troponin I x1 negative and EKG showed sinus rhythm with 1st degree AV block. Flu was negative. Patient improved significantly today. Plan: 1. SOB and cough 2/2 COPD exacerbation, improved - Duoneb GRETEL and PRN - Mucomyst GRETEL - Rocephin and Zithromax - cont Cepacol, Robitussin, and Singulair - started on Pulmicort and solumedrol 30mg IVP q12 - keep head of bed elevated - strict I/O - CPAP HS - pulm consulted, recs appreciated 2. Leg erythema and swelling likely 2/2 poor vascular circulation - LE US negative for DVT 3. Hx CHF - cont home Lasix - strict I/O - no baseline echo, so will order echo - AE hose ordered - Cardio consulted, recs appreciated 4. Hypokalemia likely 2/2 diuretic use, improved - continue K-Dur daily - supplement as needed - cont to monitor 5. Hx HTN - cont to monitor 6. Hx HLD - Lipitor 7. HX arryhthmia - cont Lopressor home dose 25mg PO AMHS 8. Hx Hypothyroid - cont synthroid 9. PPX - PTX for GI PPX - Heparin for DVT PPX Patient was seen, examined and discussed with attending, Dr. Cathy Cortes PGY1
[2017-05-21 14:15] VITALS: BP 129/65
[2017-05-21 15:24] VITALS: PULSE 86
--- NOTE | 2017-05-21 15:40 | PN ---
DATE: 05/21/2017 REASON FOR CONSULTATION AND FOLLOWUP: Cardiac evaluation, admitted with shortness of breath, history of COPD, history of permanent pacemaker. BRIEF CLINICAL HISTORY: This is a 76-year-old female with past medical history significant for COPD, hypertension, rheumatic fever, hyperlipidemia, gastroesophageal reflux disease, sick sinus syndrome, status post permanent pacemaker, history of COPD, came in with complaints of worsening progressive shortness of breath and walks get short winded, walked couple of blocks and very short-winded, came to the emergency room and also complained of bilateral lower extremity swelling. PAST MEDICAL HISTORY: Significant for COPD, hypertension, status post permanent pacemaker, and history of CHF. PAST SURGICAL HISTORY: Significant for permanent pacemaker 8 to 10 years ago, last pacemaker change 6 to 7 years ago, history of cholecystectomy. SOCIAL HISTORY: Still actively smoking half a pack a day, before used to smoker more. Denies any history of alcohol abuse. Denies any history of substance abuse. Last pacemaker interrogation done in 03/2013 and the most recent interrogation in last year March is two years for battery life. ALLERGIES: ALLERGIC TO LIPITOR SAYS INTOLERANCE AND GIVES ACHE AND PAIN ALL OVER THE BODY. ALLERGIC TO LEVAQUIN. CURRENT MEDICATIONS: The patient at home was taking albuterol, potassium chloride, metoprolol tartrate, levothyroxine, Lasix, atorvastatin, aspirin and Xanax. REVIEW OF SYSTEMS: As per HPI. PHYSICAL EXAMINATION: VITAL SIGNS: As follows; temperature afebrile, heart rate 88, and blood pressure 125/64. HEENT: PERRLA. Extraocular muscles intact. NECK: Supple. No carotid bruits or thyromegaly. CHEST: Clear to auscultation. HEART: S1 and S2 regular. ABDOMEN: Soft. EXTREMITIES: Clubbing and cyanosis negative. LABORATORY DATA: Blood workup as follows; WBC 9.8, hemoglobin 13.9, hematocrit 42.0, and platelet count 209. Chemistry shows sodium 140, potassium 3.0, chloride 96, carbon dioxide 35, anion gap of 16, BUN 31, and creatinine 1.0. EKG shows normal sinus rate of 70, right axis deviation. COPD type of EKG. Troponin remains negative. Chest x-ray read as no active disease, poor films, unable to comment. IMPRESSION: Acute exacerbation of chronic obstructive pulmonary disease, hypertension, hyperlipidemia, history of pacemaker, history of cholecystectomy in the past, pacemaker generator 6 to 7 years ago, most recent pacemaker interrogation shows battery life of 2 years, fluid overload possibly secondary to diastolic dysfunction, and chronic obstructive pulmonary disease exacerbation. The patient's last stress test in 2014. RECOMMENDATIONS: We will get echo to assess LV function, continue diuretics, continue to treat aggressively for COPD with gentle diuretics, get echo to assess LV function. Lipid profile, TSH, and hemoglobin A1c. Once the respiratory symptom subsides and the patient is able to tolerate, we will do Lexiscan for any coronary ischemia. We will follow with you. We will give an extra dose of Lasix 40 mg at 3:00 p.m with K-Dur 40 at 3 p.m. We will follow with you. We will get echo to assess LV function. We will get lipid profile, TSH, and hemoglobin A1c. Thank you Dr. Morgan for providing us the opportunity in taking care of Cinthya Kimball. Jefferson Levine MD
--- NOTE | 2017-05-21 18:46 | CP.PCM.DIS ---
Provider - Provider Date of Admission: 05/20/17 13:34 Attending physician: Destinee Morgan MD Time Spent in preparation of Discharge (in minutes): 40 Diagnosis - Discharge Diagnosis (1) COPD exacerbation Status: Acute (2) Dyspnea Status: Acute (3) Hypokalemia Status: Acute (4) CHF (congestive heart failure) Status: Chronic (5) HLD (hyperlipidemia) Status: Chronic (6) Hypothyroid Status: Chronic (7) Rheumatic disease of heart valve Status: Chronic Hospital Course - Lab Results Lab Results: Most Recent Lab Values WBC 9.2 10^3/ul (4.5-11.0) 05/21/17 06:45 RBC 4.59 10^6/uL (3.5-6.1) 05/21/17 06:45 Hgb 13.9 g/dL (12.0-16.0) 05/21/17 06:45 Hct 42.0 % (36.0-48.0) 05/21/17 06:45 MCV 91.5 fl (80.0-105.0) 05/21/17 06:45 MCH 30.3 pg (25.0-35.0) 05/21/17 06:45 MCHC 33.1 g/dl (31.0-37.0) 05/21/17 06:45 RDW 13.9 % (11.5-14.5) 05/21/17 06:45 Plt Count 209 10^3/uL (120.0-450.0) 05/21/17 06:45 MPV 10.8 fl (7.0-11.0) 05/21/17 06:45 Gran % 59.1 % (50.0-68.0) 05/20/17 09:45 Lymph % (Auto) 28.9 % (22.0-35.0) 05/20/17 09:45 [place] % (Auto) 9.7 % (1.0-6.0) H 05/20/17 09:45 Eos % (Auto) 2.2 % (1.5-5.0) 05/20/17 09:45 Baso % (Auto) 0.1 % (0.0-3.0) 05/20/17 09:45 Gran # 4.61 (1.4-6.5) 05/20/17 09:45 Lymph # 2.3 (1.2-3.4) 05/20/17 09:45 [place] # 0.8 (0.1-0.6) H 05/20/17 09:45 Eos # 0.2 (0.0-0.7) 05/20/17 09:45 Baso # 0.01 K/mm3 (0.0-2.0) 05/20/17 09:45 PT 11.4 SECONDS (9.4-12.5) 05/20/17 09:45 INR 0.99 (0.93-1.08) 05/20/17 09:45 APTT 33.9 Seconds (25.1-36.5) 05/20/17 09:45 Sodium 140 mmol/L (132-148) 05/21/17 06:45 Potassium 3.8 mmol/L (3.6-5.0) 05/21/17 06:45 Chloride 93 mmol/L (98-107) L 05/21/17 06:45 Carbon Dioxide 35 mmol/L (21-33) H 05/21/17 06:45 Anion Gap 16 (10-20) 05/21/17 06:45 BUN 31 mg/dL (7-21) H 05/21/17 06:45 Creatinine 1.0 mg/dl (0.7-1.2) 05/21/17 06:45 Est GFR ( Amer) > 60 05/21/17 06:45 Est GFR (Non-Af Amer) 54 05/21/17 06:45 POC Glucose (mg/dL) 106 mg/dL (65-110) 05/20/17 17:33 Random Glucose 144 mg/dL (70-110) H 05/21/17 06:45 Hemoglobin A1c 6.2 % (4.2-6.5) 05/21/17 10:30 Calcium 10.7 mg/dL (8.4-10.5) H 05/21/17 06:45 Phosphorus 3.7 mg/dL (2.5-4.5) 05/20/17 22:52 Magnesium 1.9 mg/dL (1.7-2.2) 05/20/17 22:52 Total Bilirubin 0.6 mg/dL (0.2-1.3) 05/21/17 06:45 AST 26 U/L (14-36) 05/21/17 06:45 ALT 24 U/L (7-56) 05/21/17 06:45 Alkaline Phosphatase 106 U/L (38-126) 05/21/17 06:45 Lactate Dehydrogenase 430 U/L (333-699) 05/20/17 10:46 Total Creatine Kinase 82 U/L (35-230) 05/20/17 10:46 Troponin I < 0.01 ng/mL 05/20/17 10:46 NT-Pro-B Natriuret Pep 125 pg/mL (0-450) 05/20/17 10:46 Total Protein 7.7 g/dL (5.8-8.3) 05/21/17 06:45 Albumin 4.3 g/dL (3.0-4.8) 05/21/17 06:45 Globulin 3.4 gm/dL 05/21/17 06:45 Albumin/Globulin Ratio 1.3 (1.1-1.8) 05/21/17 06:45 Triglycerides 141 mg/dL (35-160) 05/21/17 06:30 Cholesterol 180 mg/dL (130-200) 05/21/17 06:30 LDL Cholesterol Direct 96 mg/dL (0-129) 05/21/17 06:30 HDL Cholesterol 54 mg/dL (29-60) 05/21/17 06:30 TSH 3rd Generation 4.99 mIU/mL (0.46-4.68) H 05/21/17 06:30 Influenza Typ A,B (EIA) Negative for flu a/b (NEGATIVE) 05/20/17 10:00 - Hospital Course Hospital Course: Ms. Kimball is a 76 yo female with a PMH of COPD, CHF, hypertension, rheumatic fever as a child w/ heart disease sequela, hyperlipidemia, hypothyroidism, GERD , depression, gout, colonic polyps s/p multiple polypectomies and arrhythmia ( unclear if Afib or not) s/p pacemaker who presents with 5 days of weakness, shortness of breath, and productive cough. Patient is followed by Dr. Solomon and states she was placed on extra diuretic which caused her weakness. Patient was wheezing on presentation but was not in respiratory distress throughout hospital stay, BNP was low, CXR was unremarkable, no WBC elevation. Patient was found to be hypokalemic (2.8) and was repleted. Cardio and Pulm were consulted and their recs appreciated. Pulm recommended discharge on Prednisone taper, singulair, and Doxycycline. Cardio recommended Echo and continuing on Lasix 40mg PO and K-Dur and outpatient follow up. Patient feeling much better and medically cleared for discharge with close follow up with Dr. Solomon and Dr. Rogers as outpatient. Discharge Exam - Additional Findings Additional findings: - Constitutional Appears: Well, Non-toxic, No Acute Distress - Head Exam Head Exam: NORMAL INSPECTION - Eye Exam Eye Exam: EOMI, Normal appearance - ENT Exam ENT Exam: Mucous Membranes Moist - Neck Exam Neck Exam: Normal Inspection - Respiratory Exam Respiratory Exam: NORMAL BREATHING PATTERN. absent: Rales, Rhonchi, Wheezes - Cardiovascular Exam Cardiovascular Exam: RRR, +S1, +S2 - GI/Abdominal Exam GI & Abdominal Exam: Soft, Normal Bowel Sounds. absent: Distended, Tenderness - Extremities Exam Extremities Exam: Pedal Edema (1+) Additional comments: erythema - Back Exam Back Exam: NORMAL INSPECTION - Neurological Exam Neurological Exam: Alert, Awake, Oriented x3 - Psychiatric Exam Psychiatric exam: Normal Affect, Normal Mood - Skin Skin Exam: Normal Color, Warm Discharge Plan - Discharge Medications Prescriptions: Benzocaine/Menthol [Cepacol Sore Throat Lozenge] 1 each MM DAILY #15 lozenge Dextromethorphan HBr [Robitussin] 15 mg PO Q6 PRN #16 capsule PRN Reason: Cough Doxycycline Hyclate [Doryx] 100 mg PO BID #14 cap Montelukast [Singulair] 4 mg PO DAILY #1 ml Pantoprazole [Protonix EC Tab] 40 mg PO 0600 #14 ect Potassium Chloride [K-Tab ER] 40 meq PO DAILY #15 tablet.er predniSONE [Prednisone] See Taper PO ASDIR #1 tab - Follow Up Plan Condition: IMPROVED Disposition: HOME/ ROUTINE Instructions: Furosemide (By mouth), Potassium Chloride (By mouth), Heart Failure (DC), Hypokalemia (DC), COPD (Chronic Obstructive Pulmonary Disease) (DC ) Additional Instructions: - please take prednisone taper as prescribed - please take potassium 40meq daily - please cont Lasix 40mg daily - please cont medications as prescribed - please follow up with Dr. Solomon within 1 week of discharge and consider outpatient ECHO and stress test - if you experience any shortness of breath, chest pain or worsening leg swelling, please return to ER for evaluation Referrals: Giovanni Rogers MD [Staff Provider] - Jefferson Solomon MD [Family Provider] -
[2017-05-22] MEDS ORDERED: Cefpodoxime (Vantin) 200 mg Tab PO SCH (10:00)
== END 2017-05-21 17:20 | disposition home or self-care (01) ==
LOC: ED 09:14 → ERH 13:34 → 2RSO 22:27 → INTOOBSV 05-21 11:51 → OBSVTOIN 05-21 11:51
PROVIDERS: ADMIT Internal Medicine; ATTEND Hospitalist
DX: J44.1 Chronic obstructive pulmonary disease with (acute) exacerbation (principal); I50.30 Unspecified diastolic (congestive) heart failure; E03.9 Hypothyroidism, unspecified; E78.00 Pure hypercholesterolemia, unspecified; E78.5 Hyperlipidemia, unspecified; E87.6 Hypokalemia; I11.0 Hypertensive heart disease with heart failure; I38 Endocarditis, valve unspecified; I48.91 Unspecified atrial fibrillation; J20.9 Acute bronchitis, unspecified; J44.0 Chronic obstructive pulmonary disease with (acute) lower respiratory infection; K21.9 Gastro-esophageal reflux disease without esophagitis; Z86.010 Personal history of colon polyps; N28.9 Disorder of kidney and ureter, unspecified; F17.210 Nicotine dependence, cigarettes, uncomplicated; Z79.82 Long term (current) use of aspirin; Z79.899 Other long term (current) drug therapy; Z90.49 Acquired absence of other specified parts of digestive tract; Z95.0 Presence of cardiac pacemaker; Z87.892 Personal history of anaphylaxis; R40.2412 Glasgow coma scale score 13-15, at arrival to emergency department; I44.0 Atrioventricular block, first degree; I49.9 Cardiac arrhythmia, unspecified; Z98.49 Cataract extraction status, unspecified eye; Z88.1 Allergy status to other antibiotic agents; Z88.8 Allergy status to other drugs, medicaments and biological substances
CPT/HCPCS: 36415; 71045; 80053; 80061; 82550; 82948; 83036; 83615; 83735; 83880; 84100; 84443; 84484; 85025; 85027; 85610; 85730; 87804; 93005; 93970; 94640; 97116; 97161; 99285; G0378; G8978; G8979; G8980; J0696; J1644; J1940; J2920; J3480; J7040

== ENCOUNTER 2017-06-06 12:07 | Inpatient (IN) | payer MEDICARE, OTHER ==
[2017-06-06 12:17] VITALS: BMI 34.3
[2017-06-06] MEDS ORDERED: Albuterol-Ipratrop 3 mg / 0.5 (3 ml) UD IH STA ×3 (13:08→14:07)
[2017-06-06 13:23] LABS: BASO # 0.01 K/mm3 (0.0-2.0); BASO % 0.1 % (0.0-3.0); EOS # 0.1 (0.0-0.7); EOS % 0.9 % (1.5-5.0); GRAN # 6.68 (1.4-6.5); HEMOGLOBIN 15.7 g/dL (12.0-16.0); LYMPH # 2.5 (1.2-3.4); LYMPH % 24.7 % (22.0-35.0); MEAN CELL VOLUME 93.4 fl (80.0-105.0); MEAN CORPUSCULAR HEMOGLOBIN 31.5 pg (25.0-35.0); MEAN CORPUSCULAR HGB CONC 33.7 g/dl (31.0-37.0); MEAN PLATELET VOLUME 10.9 fl (7.0-11.0); MONO # 0.7 (0.1-0.6); MONO % 7.3 % (1.0-6.0); PH,URINE 6.5 (4.7-8.0); RBC 4.99 10^6/uL (3.5-6.1); RED CELL DISTRIBUTION WIDTH 13.9 % (11.5-14.5); URINE APPEARANCE CLEAR (CLEAR); URINE BILIRUBIN NEGATIVE (NEGATIVE); URINE BLOOD NEGATIVE (NEGATIVE); URINE COLOR YELLOW (YELLOW); URINE GLUCOSE (UA) NEGATIVE (NEGATIVE); URINE LEUKOCYTE ESTERASE NEGATIVE Leu/uL (NEGATIVE); URINE NITRATE NEGATIVE (NEGATIVE); URINE PROTEIN NEGATIVE mg/dL (<30 mg/dL); URINE UROBILINOGEN 0.2 E.U./dL (<1 E.U./dL)
[2017-06-06 13:40] LABS: ALB/GLOB RATIO 1.3 (1.1-1.8); ALBUMIN 4.7 g/dL (3.0-4.8); ALT/SGPT 29 U/L (7-56); AST/SGOT 28 U/L (14-36); BLOOD UREA NITROGEN 18 mg/dL (7-21); CALCIUM 11.2 mg/dL (8.4-10.5); GFR AFRICAN-AMERICAN > 60; GFR NON-AFRICAN AMERICAN > 60; MAGNESIUM 1.9 mg/dL (1.7-2.2)
[2017-06-06 13:42] LABS: INR 1.01 (0.93-1.08); PROTHROMBIN TIME 11.6 SECONDS (9.4-12.5)
[2017-06-06 13:45] LABS: B-TYPE NATRIURETIC PEPTIDE 146 pg/mL (0-450); TROPONIN I < 0.01 ng/mL
--- NOTE | 2017-06-06 14:29 | RAD ---
HISTORY: chest pain COMPARISON: Chest radiograph dated 05/20/2017. FINDINGS: LUNGS: No active pulmonary disease. PLEURA: Stable mild elevation of the right hemidiaphragm. No significant pleural effusion identified, no pneumothorax apparent. CARDIOVASCULAR: Left subclavian access to lead pacemaker redemonstrated. Atherosclerotic aortic calcifications. Cardiomediastinal silhouette stably prominent. OSSEOUS STRUCTURES: Unchanged. VISUALIZED UPPER ABDOMEN: Normal. OTHER FINDINGS: None. IMPRESSION: No active disease.
--- NOTE | 2017-06-06 14:31 | ED PDOC ---
Arrival/HPI - General Chief Complaint: Chest Pain Time Seen by Provider: 06/06/17 12:55 Historian: Patient - History of Present Illness Narrative History of Present Illness (Text): 06/06/17 14:31 A 76 year old female, whose past medical history includes COPD, hypertension, hyperlipidemia, CHF with diastolic dysfunction, A fib s/p pacemaker, cholecystectomy, presents to the emergency department complaining of shortness of breath and cough for the past four days. Patient reports she was sent in by Fuel Distribution System Operator. Notes she is currently on a new water pill. Patient also reports intermittent chest discomfort for past three days. Pain not worse with breathing. Also reports intermittent mid back pain, now currently resolved. Denies nausea or vomiting. Reports chronic swelling to the legs. PMD: None Fuel Distribution System Operator: Dr. Chua Maintenance Engineer: Dr. Solomon 06/06/17 18:15 Time/Duration: < week Symptom Onset: Sudden Symptom Course: Unchanged Activities at Onset: Rest Context: Home Past Medical History - Provider Review Nursing Documentation Reviewed: Yes - Infectious Disease Hx of Infectious Diseases: None - Tetanus Immunization Tetanus Immunization: Unknown - Reproductive Menopause: Yes - Cardiac Hx Cardiac Arrhythmia: Yes (afib) - Pulmonary Hx Respiratory Disorders: Yes Hx Chronic Obstructive Pulmonary Disease (COPD): Yes - Neurological Hx Neurological Disorder: No - HEENT Hx HEENT Disorder: No - Renal Hx Renal Disorder: No - Endocrine/Metabolic Hx Endocrine Disorders: Yes - Hematological/Oncological Hx Blood Disorders: No - Integumentary Hx Dermatological Disorder: No - Musculoskeletal/Rheumatological Hx Musculoskeletal Disorders: Yes (Pinched nerve to left shoulder) Hx Unsteady Gait: (uses cane) - Gastrointestinal Hx Gastrointestinal Disorders: Yes Hx Gastroesophageal Reflux: Yes Other/Comment: multiple colon polyps s/p colonoscopies and removal - Genitourinary/Gynecological Hx Genitourinary Disorders: No - Psychiatric Hx Psychophysiologic Disorder: Yes Hx Anxiety: Yes Hx Depression: Yes Hx Substance Use: No - Surgical History Hx Orthopedic Surgery: Yes (Right knee sx) - Anesthesia Hx Anesthesia: Yes - Suicidal Assessment Feels Threatened In Home Enviroment: No Family/Social History - Physician Review Nursing Documentation Reviewed: Yes Family/Social History: No Known Family HX Smoking Status: Never Smoked Hx Alcohol Use: No Hx Substance Use: No Allergies/Home Meds Allergies/Adverse Reactions: Allergies levofloxacin [From Levaquin] Allergy (Severe, Verified 06/06/17 12:27) ANAPHYLAXIS Home Medications: Home Meds Medication Instructions Recorded Confirmed Aspirin [Ecotrin] 81 mg PO DAILY 09/01/15 06/06/17 Atorvastatin [Lipitor] 10 mg PO DIN 09/01/15 06/06/17 Cholecalciferol (Vitamin D3) 1,000 iu PO DAILY 09/01/15 06/06/17 [Vitamin D3] Esomeprazole Magnesium [Nexium] 40 mg PO DAILY 09/01/15 06/06/17 Furosemide [Lasix] 40 mg PO DAILY 09/01/15 06/06/17 Levothyroxine [Synthroid] 100 mcg PO DAILY 09/01/15 06/06/17 Metoprolol Tartrate 25 mg PO .AM 09/01/15 06/06/17 Metoprolol Tartrate [Lopressor] 25 mg PO QPM 09/01/15 06/06/17 Albuterol/Ipratropium [Duoneb 3 1 inh INH PRN PRN 04/10/16 06/06/17 mg/0.5 mg (3 ml) UD] Fluticasone/Salmeterol 500/50 1 inh INH BID 04/10/16 06/06/17 [Advair Diskus 500/50] Potassium Chloride [K-Tab ER] 20 meq PO BID 06/06/17 06/06/17 metOLazone [Zaroxolyn] 2.5 mg PO QWK 06/06/17 06/06/17 Review of Systems - Review of Systems Constitutional: Fatigue. absent: Fevers Eyes: absent: Vision Changes ENT: absent: Hearing Changes, Sore Throat, Rhinorrhea Respiratory: SOB, Cough, Sputum, Wheezing Cardiovascular: Chest Pain, Edema, CHOW, Orthopnea. absent: Palpitations, Calf Pain, Syncope Gastrointestinal: Abdominal Pain, Appetite Changes Genitourinary Female: absent: Dysuria, Frequency Musculoskeletal: Back Pain, Other (lower extremity swelling) Skin: Rash Neurological: absent: Headache, Dizziness, Focal Weakness Physical Exam - Physical Exam Narrative Physical Exam (Text): 06/06/17 14:30 Head: Atraumatic. Normocephalic. Eyes: PERRL. EOMI. Conjunctivae are not pale. ENT: Mucous membranes are moist and intact. Oropharynx is clear and symmetric. Neck: Supple. Full ROM. No JVD. No lymphadenopathy. Cardiovascular: Regular rate. Regular rhythm. Systolic murmur. Distal pulses intact. Pulmonary/Chest: diffuse wheezing, rhonchi Abdominal: Soft and non-distended. There is no tenderness. No rebound, guarding, or rigidity. No organomegaly. Good bowel sounds. Back: No CVA tenderness. Mild paraspinal tenderness. No midline erythema or edema. Extremities: b/l LE edema, weeping, erythematous Skin: Skin is warm and dry. No petechiae. No purpura. Neurological: Alert, awake, and oriented to person, place, time, and situation. Normal speech. Motor and sensory exam intact. Psychiatric: Good eye contact. Normal interaction, affect, and behavior. 06/06/17 18:16 Vital Signs Reviewed: Yes Vital Signs Temp Pulse Resp BP Pulse Ox 06/06/17 18:12 90 18 107/58 L 96 06/06/17 17:08 78 112/58 L 06/06/17 16:38 80 18 136/69 99 06/06/17 14:30 98 F 64 18 169/86 H 100 06/06/17 12:17 98.1 F 72 18 142/97 H 97 Temperature: Afebrile Blood Pressure: Hypertensive Pulse: Regular Respiratory Rate: Normal Appearance: Positive for: Non-Toxic, Comfortable Pain Distress: Mild Mental Status: Positive for: Alert and Oriented X 3 Medical Decision Making ED Course and Treatment: 06/06/17 14:29 Impression: A 76 year old female with shortness of breath and cough. Differential Diagnosis included but are not limited to: COPD vs. cardiac ischemia vs. aortic aneurysm vs. Pneumonia vs. CHF Plan: -- EKG -- chest xray -- labs -- Urinalysis -- Solumedrol, Duoneb -- Reassess and disposition Prior Visits: Notes and results from previous visits were reviewed. Patient was last seen in the emergency department on 05/20/17 for evaluation of URI symptoms, cough congestion, shortness of breath and wheezing. Progress Notes: Patient saw geospatial applications developer prior to arrival, sent for further evaluation. She reports intermittent chest pain and back pain, none currently, with equal pulses in both upper extremities. CXR ordered as patient with persistent cough and sputum: 06/06/17 14:32 Chest xray: Creator : Jesus Ross MD IMPRESSION: No active disease. Wheezing persists despite multiple nebulizers, although improved. Leg edema by history chronic. Current chest xray unchanged from previous, although by history cannot exclude cardiac component of symptoms due to chest pain. Patient's case d/w Dr. Levine, covering for PMD, requests admission to hospitalist. Patient agreeable to treatment plan. - Lab Interpretations Lab Results: 06/06/17 13:00 06/06/17 13:00 Lab Results 06/06/17 13:00: Urine Color Yellow, Urine Appearance Clear, Urine pH 6.5, Ur Specific [place] 1.010, Urine Protein Negative, Urine Glucose (UA) Negative, Urine Ketones Negative, Urine Blood Negative, Urine Nitrate Negative, Urine Bilirubin Negative, Urine Urobilinogen 0.2, Ur Leukocyte Esterase Negative 06/06/17 13:00: PT 11.6, INR 1.01, APTT 35.0 06/06/17 13:00: Influenza Typ A,B (EIA) Negative for flu a/b 06/06/17 13:00: Sodium 142, Potassium 3.4 L, Chloride 92 L, Carbon Dioxide 39 H , Anion Gap 15, BUN 18, Creatinine 0.9, Est GFR ( Amer) > 60, Est GFR ( Non-Af Amer) > 60, Random Glucose 112 H, Calcium 11.2 H, Magnesium 1.9, Total Bilirubin 1.1, AST 28, ALT 29, Alkaline Phosphatase 102, Lactate Dehydrogenase 508, Total Creatine Kinase 40, Troponin I < 0.01, NT-Pro-B Natriuret Pep 146, Total Protein 8.4 H, Albumin 4.7, Globulin 3.7, Albumin/Globulin Ratio 1.3 06/06/17 13:00: WBC 10.0, RBC 4.99, Hgb 15.7, Hct 46.6, MCV 93.4, MCH 31.5, MCHC 33.7, RDW 13.9, Plt Count 197, MPV 10.9, Gran % 67.0, Lymph % (Auto) 24.7, [place] % (Auto) 7.3 H, Eos % (Auto) 0.9 L, Baso % (Auto) 0.1, Gran # 6.68 H, Lymph # (Auto) 2.5, [place] # (Auto) 0.7 H, Eos # (Auto) 0.1, Baso # (Auto) 0.01 I have reviewed the lab results: Yes - RAD Interpretation Radiology Orders: 06/06/17 13:07 CHEST PORTABLE [RAD] Stat - EKG Interpretation EKG Interpretation (Text): 06/06/17 18:17 EKG at 12:15 paced rhythm Interpreted by ED Physician: Yes Type: 12 lead EKG - Medication Orders Current Medication Orders: Acetaminophen (Tylenol 325mg Tab) 650 mg PO Q4 PRN PRN Reason: Fever >100.4 F Alprazolam (Xanax) 0.25 mg PO BID PRN; Protocol PRN Reason: Anxiety Stop: 06/13/17 15:48 Arformoterol Tartrate (Brovana) 15 mcg IH [id number] [facility] Aspirin (Ecotrin) 81 mg PO DAILY [facility] Last Admin: 06/06/17 16:05 Dose: Atorvastatin Calcium (Lipitor) 10 mg PO DIN GRETEL Last Admin: 06/06/17 16:56 Dose: 10 mg Azithromycin (Zithromax) 500 mg PO DAILY [facility]RET[facility] PRN Reason: Protocol Last Admin: 06/06/17 17:10 Dose: 500 mg Budesonide (Pulmicort Respules) 1 mg IH [id number] [facility] Cholecalciferol (Vitamin D) 1,000 intlu PO DAILY [facility] Furosemide (Lasix) 40 mg PO DAILY [facility] Guaifenesin/Dextromethorphan (Robitussin Dm) 5 ml PO Q4H PRN PRN Reason: Cough Heparin Sodium (Porcine) (Heparin) 5,000 units SC Q12 GRETEL PRN Reason: Protocol Cefepime HCl (Maxipime 1gm) 1 gm in 100 mls @ 100 mls/hr IVPB Q8 [facility] PRN Reason: Protocol Last Admin: 06/06/17 17:11 Dose: 100 mls/hr eMAR Start Stop Document 06/06/17 17:11 [place] (Rec: 06/06/17 17:11 [place] [facility] [id number]) Intravenous Solution Start Date 06/06/17 Start Time 17:11 Levalbuterol HCl (Xopenex) 0.63 mg IH [id number] [facility] Levalbuterol HCl (Xopenex) 0.63 mg IH Q2 PRN PRN Reason: Shortness of Breath Levothyroxine Sodium (Synthroid) 100 mcg PO DAILY [facility] Last Admin: 06/06/17 16:03 Dose: Methylprednisolone (Solu-Medrol) 40 mg IVP DAILY [facility] Metoprolol Tartrate (Lopressor) 25 mg PO QPM [facility] Last Admin: 06/06/17 17:08 Dose: Not Given Non-Admin Reason: Patient Refused MAR Pulse and Blood Pressure Document 06/06/17 17:08 LA (Rec: 06/06/17 17:08 LA [id number]) Pulse Pulse Rate (60-90 beats/min) 78 Blood Pressure Blood Pressure (100/60-150/90 mm Hg) 112/58 Metoprolol Tartrate (Lopressor) 25 mg PO .AM [facility]RET[facility] Montelukast Sodium (Singulair) 10 mg PO HS [facility]RET[facility] Pantoprazole Sodium (Protonix Ec Tab) 40 mg PO 0600 [facility] Pantoprazole Sodium (Protonix Ec Tab) 40 mg PO 0600 [facility] Potassium Chloride (K-Dur 20 Meq Er Tab) 20 meq PO BRKDIN [facility] Last Admin: 06/06/17 16:59 Dose: 20 meq Discontinued Medications Albuterol/Ipratropium (Duoneb 3 Mg/0.5 Mg (3 Ml) Ud) 3 ml IH STAT STA Stop: 06/06/17 13:09 Last Admin: 06/06/17 13:15 Dose: 3 ml Albuterol/Ipratropium (Duoneb 3 Mg/0.5 Mg (3 Ml) Ud) 3 ml IH STAT STA Stop: 06/06/17 14:07 Last Admin: 06/06/17 14:15 Dose: 3 ml Albuterol/Ipratropium (Duoneb 3 Mg/0.5 Mg (3 Ml) Ud) 3 ml IH STAT STA Stop: 06/06/17 14:08 Last Admin: 06/06/17 14:29 Dose: 3 ml Aspirin (Aspirin Chewable) 81 mg PO STAT STA Stop: 06/06/17 14:45 Last Admin: 06/06/17 14:51 Dose: 81 mg Methylprednisolone (Solu-Medrol) 125 mg IVP STAT STA Stop: 06/06/17 13:09 Last Admin: 06/06/17 13:15 Dose: 125 mg IVP Administration Document 06/06/17 13:15 LA (Rec: 06/06/17 13:15 LA [id number] Charges for Administration # of IVP Administrations 1 Methylprednisolone (Solu-Medrol) 40 mg IVP Q12 [facility]RET[facility] Potassium Chloride (K-Dur 20 Meq Er Tab) 20 meq PO STAT STA Stop: 06/06/17 14:44 Last Admin: 06/06/17 14:51 Dose: 20 meq - Scribe Statement The provider has reviewed the documentation as recorded by the Blayne June Provider Scribe Attestation: All medical record entries made by the Blayne were at my direction and personally dictated by me. I have reviewed the chart and agree that the record accurately reflects my personal performance of the history, physical exam, medical decision making, and the department course for this patient. I have also personally directed, reviewed, and agree with the discharge instructions and disposition. Disposition/Present on Arrival - Present on Arrival Any Indicators Present on Arrival: No History of DVT/PE: No History of Uncontrolled Diabetes: No Urinary Catheter: No History of Decub. Ulcer: No History Surgical Site Infection Following: None - Disposition Have Diagnosis and Disposition been Completed?: Yes Diagnosis: COPD exacerbation, Chest pain Disposition: HOSPITALIZED Disposition Time: 14:15 Patient Plan: Admission Condition: FAIR
[2017-06-06] MEDS ORDERED: Potassium Chloride 20 mEq ER Tab PO STA (14:43)
[2017-06-06 15:26] LABS: ARTERIAL BLOOD GAS HCO3 34.8 mmol/L (21-28); ARTERIAL BLOOD GAS HEMOGLOBIN 14.5 g/dL (11.7-17.4); ARTERIAL BLOOD GAS O2 CAPACITY 19.7 mL/dl (16-24); ARTERIAL BLOOD GAS O2 CONTENT 18.5 ML/dl (15-23); ARTERIAL BLOOD GAS O2 SAT 94.1 % (95-98); ARTERIAL BLOOD GAS PCO2 49 mm/Hg (35-45); ARTERIAL BLOOD GAS PH 7.46 (7.35-7.45); ARTERIAL BLOOD GAS TCO2 36.3 mmol.L (22-28)
[2017-06-06] MEDS ORDERED: Levalbuterol 0.63 MG/3 ML Inhal Soln UD IH PRN (15:50)
[2017-06-06] MEDS ORDERED: Non Formulary Medication (Furosemide [Lasix] 40 MG) PO SCH (16:00)
[2017-06-06] MEDS: Levothyroxine 100 MCG TAB PO SCH (16:03)
[2017-06-06] MEDS: Potassium Chloride 20 mEq ER Tab PO SCH (16:59)
[2017-06-06] MEDS: Cefepime 1gm in NS 100ml 1 GM/100 ML BAG IVPB SCH ×2 (17:11→22:40)
--- NOTE | 2017-06-06 17:33 | CP.PCM.HP ---
<Byron Cortes - Last Filed: 06/06/17 17:06> History of Present Illness - History of Present Illness History of Present Illness: Byron Cortes PGY 1 IM H&P Note cc: SOB and cough x4 days Ms. Kimball is a 76 yo female with a PMH of COPD, CHF, hypertension, arrhythmia ( unclear if Afib or not) s/p pacemaker, rheumatic fever as a child w/ heart disease sequela, hyperlipidemia, hypothyroidism, GERD, depression, gout, and colonic polyps s/p multiple polypectomies who presents with a productive cough, shortness of breath and pleuritic chest pain x4 days. Patient was recently discharge for similar symptoms from [facility] and followed up with Dr. Solomon who split her metolazone dose in half to 2.5 once weekly. Patient also went to see Dr. Chua today who suggested for her to come in to ED. Patient states that she has also been wheezing with her cough but that the treatments she received in the ED have given her relief. She is compliant with her medications at home, and uses CPAP at night. Patient denies headaches, changes in vision/ hearing, abdominal pain, weakness, numbness/tingling, n/v/d, fevers/chills. 12- pt ROS was reviewed and is otherwise unremarkable. PMD: Dr. Solomon PMH: as above PSH: cholecystectomy, R knee surgery, pacemaker Meds: Reviewed on JUN ALL: Levofloxacin SHx: former smoker (quit 1 yr ago), social ETOH use, denies drug use; uses cane for assistance; lives with daughter who has sick kids at home FHx: Heart disease on both sides of family Present on Admission - Present on Admission Any Indicators Present on Admission: No Review of Systems - Review of Systems All systems: reviewed and no additional remarkable complaints except (as per HPI ) Past Patient History - Infectious Disease Hx of Infectious Diseases: None - Tetanus Immunizations Tetanus Immunization: Unknown - Past Medical History & Family History Past Medical History?: Yes - Past Social History Smoking Status: Former Smoker Drugs: Denies Home Situation {Lives}: With Family (daughter ) - CARDIAC Hx Cardia Arrhythmia: Yes (afib) Hx Hypercholesterolemia: Yes Hx Hypertension: Yes Hx Pacemaker: Yes - PULMONARY Hx Respiratory Disorders: Yes Hx Chronic Obstructive Pulmonary Disease (COPD): Yes - NEUROLOGICAL Hx Neurological Disorder: No - HEENT Hx HEENT Problems: No - RENAL Hx Chronic Kidney Disease: No - ENDOCRINE/METABOLIC Hx Endocrine Disorders: Yes Hx Hypothyroidism: Yes - HEMATOLOGICAL/ONCOLOGICAL Hx Blood Disorders: No - INTEGUMENTARY Hx Dermatological Problems: No - MUSCULOSKELETAL/RHEUMATOLOGICAL Hx Musculoskeletal Disorders: Yes (Pinched nerve to left shoulder) Hx Unsteady Gait: Yes (uses cane) - GASTROINTESTINAL Hx Gastrointestinal Disorders: Yes Hx Gastroesophageal Reflux: Yes Other/Comment: multiple colon polyps s/p colonoscopies and removal - GENITOURINARY/GYNECOLOGICAL Hx Genitourinary Disorders: No - PSYCHIATRIC Hx Psychophysiologic Disorder: Yes Hx Anxiety: Yes Hx Depression: Yes Hx Substance Use: No - SURGICAL HISTORY Hx Orthopedic Surgery: Yes (Right knee sx) - ANESTHESIA Hx Anesthesia: Yes Meds Allergies/Adverse Reactions: Allergies Allergy/AdvReac Type Severity Reaction Status Date / Time levofloxacin [From Levaquin] Allergy Severe ANAPHYLAXIS Verified 06/06/17 12:27 Physical Exam - Constitutional Appears: Well, Non-toxic, No Acute Distress - Head Exam Head Exam: NORMAL INSPECTION - Eye Exam Eye Exam: EOMI, Normal appearance, PERRL - ENT Exam ENT Exam: Mucous Membranes Moist - Neck Exam Neck exam: Positive for: Normal Inspection - Respiratory Exam Respiratory Exam: NORMAL BREATHING PATTERN. absent: Rales, Rhonchi, Wheezes, Respiratory Distress - Cardiovascular Exam Cardiovascular Exam: RRR, +S1, +S2 - GI/Abdominal Exam GI & Abdominal Exam: Normal Bowel Sounds, Soft. absent: Distended, Tenderness - Extremities Exam Extremities exam: Positive for: normal inspection, pedal edema (3+). Negative for: tenderness - Back Exam Back exam: NORMAL INSPECTION - Neurological Exam Neurological exam: Alert, Oriented x3 - Psychiatric Exam Psychiatric exam: Normal Affect, Normal Mood - Skin Skin Exam: Normal Color, Warm Results - Vital Signs Recent Vital Signs: Last Vital Signs Temp 98 F 06/06/17 14:30 Pulse 80 06/06/17 16:38 Resp 18 06/06/17 16:38 BP 136/69 06/06/17 16:38 Pulse Ox 99 06/06/17 16:38 - Labs Result Diagrams: 06/06/17 13:00 06/06/17 13:00 Labs: Laboratory Results - last 24 hr 06/06/17 15:20 pCO2 49 H pO2 54.0 L HCO3 34.8 H ABG pH 7.46 H ABG Total CO2 36.3 H ABG O2 Saturation 94.1 L ABG O2 Content 18.5 ABG Base Excess 9.3 H ABG Hemoglobin 14.5 ABG Carboxyhemoglobin 2.3 H POC ABG HHb (Measured) 5.7 H ABG Methemoglobin 1.2 ABG O2 Capacity 19.7 Hgb O2 Saturation 90.8 L FiO2 21.0 Assessment & Plan - Assessment and Plan (Free Text) Assessment: 76 yo female with a PMH of COPD, CHF, hypertension, rheumatic fever as a child w / heart disease sequela, hyperlipidemia, hypothyroidism, GERD, depression, gout , colonic polyps s/p multiple polypectomies and arrhythmia (unclear if Afib or not) s/p pacemaker who presents with 4 days of weakness, shortness of breath, and productive cough likely 2/2 COPD exacerbation. Despite hx of CHF, BNP is not elevated, no crackles heard on exam and CXR is unremarkable making CHF exacerbation less likely. Troponin I x1 negative and EKG showed paced rhythm. Flu was negative. Plan: 1. SOB and cough 2/2 COPD exacerbation - Duoneb GRETEL and PRN - Cefepime and Zithromax - cont Brovana, Singulair and Pulmicort - Robitussin PRN - solu-medrol 40mg IVP daily - keep head of bed elevated - strict I/O - CPAP HS - Pulm consulted, recs appreciated - Cardio consulted, recs appreciated 2. Hx CHF - cont home Lasix - strict I/O - baseline Echo done outpatient with Dr. Solomon - Cardio consulted, recs appreciated 3. Hypokalemia likely 2/2 diuretic use - continue K-Dur daily - supplement as needed - cont to monitor 4. Hx HTN - cont to monitor 5. Hx HLD - Lipitor 6. HX arryhthmia - cont Lopressor home dose 25mg PO AMHS 7. Hx Hypothyroid - cont synthroid 8. PPX - PTX for GI PPX - Heparin for DVT PPX Patient was seen, examined and discussed with attending, Dr. Chepe Cortes PGY1 <Glenis Mo - Last Filed: 06/07/17 14:58> Results - Vital Signs Recent Vital Signs: Last Vital Signs Temp 97.1 F L 06/07/17 12:00 Pulse 89 06/07/17 12:00 Resp 18 06/07/17 12:00 BP 148/76 06/07/17 12:00 Pulse Ox 95 06/06/17 20:32 - Labs Result Diagrams: 06/07/17 07:00 06/07/17 07:00 Labs: Laboratory Results - last 24 hr 06/06/17 06/07/17 06/07/17 15:20 07:00 07:00 WBC 10.2 RBC 4.40 Hgb 13.4 D Hct 40.0 MCV 90.9 MCH 30.5 MCHC 33.5 RDW 13.6 Plt Count 190 MPV 10.6 pCO2 49 H pO2 54.0 L HCO3 34.8 H ABG pH 7.46 H ABG Total CO2 36.3 H ABG O2 Saturation 94.1 L ABG O2 Content 18.5 ABG Base Excess 9.3 H ABG Hemoglobin 14.5 ABG Carboxyhemoglobin 2.3 H POC ABG HHb (Measured) 5.7 H ABG Methemoglobin 1.2 ABG O2 Capacity 19.7 Hgb O2 Saturation 90.8 L FiO2 21.0 Sodium 139 Potassium 3.6 Chloride 94 L Carbon Dioxide 33 Anion Gap 15 BUN 24 H Creatinine 0.8 Est GFR ( Amer) > 60 Est GFR (Non-Af Amer) > 60 Random Glucose 164 H Calcium 10.5 Total Bilirubin 0.7 AST 24 ALT 34 Alkaline Phosphatase 83 Total Protein 6.8 Albumin 3.8 Globulin 3.0 Albumin/Globulin Ratio 1.3 Attending/Attestation - Attestation I have personally seen and examined this patient.: Yes I have fully participated in the care of the patient.: Yes I have reviewed all pertinent clinical information: Yes Notes (Text): 06/07/17 14:54 attending note; Patient seen and examined with resident in ER. Patient is a 76 yo female with a PMH of chronic obstructive pulmonary disease, congestive heart failure, hypertension, s/p pacemaker, rheumatic fever as a child with heart disease sequela, hyperlipidemia, hypothyroidism, depression, gout, and colonic polyps s/p multiple polypectomies who presents with a productive cough, shortness of breath and pleuritic chest pain x4 days. the patient was referred from health care marketing specialist office for shortness of breath. Patient is home oxygen dependent. Continue oxygen, DuoNeb treatment, IV Solu-Medrol, Zithromax. pulmonary evaluation requested. History of congestive heart failure; echocardiogram ordered. Cardiology evaluation requested. PT evaluation requested. Monitor closely. Upon discharge the patient will follow up with PMD Dr. Solomon.
[2017-06-06] MEDS ORDERED: POTASSIUM CHLORIDE 20 MEQ PO SCH (18:00)
[2017-06-06] MEDS: Levalbuterol 0.63 MG/3 ML Inhal Soln UD IH SCH (20:02)
[2017-06-06] MEDS: Budesonide 0.5 mg/2 ml Inhal Susp UD IH SCH (20:24)
[2017-06-06] MEDS: guaiFENesin DM 100 mg-10 mg/5 ml UD PO PRN (21:52)
[2017-06-06] MEDS ORDERED: MethylPREDNISolone 40 mg Vial IVP SCH (22:00)
--- NOTE | 2017-06-06 23:30 | CARD ---
APPROVED REPORT EKG Measurement Heart [id number] <Conclusion> AV sequential or dual chamber electronic pacemaker
[2017-06-07] MEDS: Levalbuterol 0.63 MG/3 ML Inhal Soln UD IH SCH ×4 (02:08→19:23)
[2017-06-07] MEDS: Cefepime 1gm in NS 100ml 1 GM/100 ML BAG IVPB SCH ×3 (06:43→21:44)
[2017-06-07] MEDS: Pantoprazole 40 mg EC Tab PO SCH ×3 (06:43→06:47)
[2017-06-07 08:10] LABS: HEMOGLOBIN 13.4 g/dL (12.0-16.0); MEAN CELL VOLUME 90.9 fl (80.0-105.0); MEAN CORPUSCULAR HEMOGLOBIN 30.5 pg (25.0-35.0); MEAN CORPUSCULAR HGB CONC 33.5 g/dl (31.0-37.0); MEAN PLATELET VOLUME 10.6 fl (7.0-11.0); RBC 4.4 10^6/uL (3.5-6.1); RED CELL DISTRIBUTION WIDTH 13.6 % (11.5-14.5); WHITE BLOOD COUNT 10.2 10^3/ul (4.5-11.0)
[2017-06-07] MEDS: Arformoterol 15 mcg/2 ml Inh Sol IH SCH ×2 (08:23→19:23)
[2017-06-07] MEDS: Budesonide 0.5 mg/2 ml Inhal Susp UD IH SCH ×2 (08:23→19:23)
[2017-06-07 08:39] LABS: ALB/GLOB RATIO 1.3 (1.1-1.8); ALBUMIN 3.8 g/dL (3.0-4.8); ALT/SGPT 34 U/L (7-56); AST/SGOT 24 U/L (14-36); BLOOD UREA NITROGEN 24 mg/dL (7-21); CALCIUM 10.5 mg/dL (8.4-10.5); GFR AFRICAN-AMERICAN > 60; GFR NON-AFRICAN AMERICAN > 60
[2017-06-07] MEDS: Potassium Chloride 20 mEq ER Tab PO SCH ×2 (09:25→18:05)
[2017-06-07] MEDS: Levothyroxine 100 MCG TAB PO SCH (09:25)
[2017-06-07] MEDS: Cholecalciferol 1,000 INTLU TAB PO SCH (09:25)
[2017-06-07] MEDS: MethylPREDNISolone 40 mg Vial IVP SCH (09:26)
--- NOTE | 2017-06-07 13:48 | CP.PCM.PN ---
<Herminia Le - Last Filed: 06/07/17 13:43> Subjective - Date & Time of Evaluation Date of Evaluation: 06/07/17 Time of Evaluation: 07:30 - Subjective Subjective: Dr. Mo Service Patient was seen and examined at bedside. Patient was found to be resting comfortably. She does not endorse any acute complaints at this time. No acute or adverse events overnight. She states that he is tolerating oral intake however has not had a bowel movement overnight. She admits to lower extremity swelling. Pt has noted to be moving her bladder, however to a lesser degree than usual. Pt notes mild shortness of breath. She denied fever, chills, chest pains, abdominal pain, nausea, vomiting, diarrhea, constipation or urinary symptoms. Objective - Vital Signs/Intake and Output Vital Signs (last 24 hours): Temp Pulse Resp BP Pulse Ox 97.1 F L 89 18 148/76 95 06/07/17 12:00 06/07/17 12:00 06/07/17 12:00 06/07/17 12:00 06/06/17 20:32 Intake and Output: 06/07/17 06/07/17 06:59 18:59 Intake Total 240 Output Total 0 Balance 240 - Medications Medications: Current Medications Acetaminophen (Tylenol 325mg Tab) 650 mg PO Q4 PRN PRN Reason: Fever >100.4 F Alprazolam (Xanax) 0.25 mg PO BID PRN; Protocol PRN Reason: Anxiety Stop: 06/13/17 15:48 Last Admin: 06/07/17 06:57 Dose: 0.25 mg Arformoterol Tartrate (Brovana) 15 mcg IH [id number] [facility] Last Admin: 06/07/17 08:23 Dose: 15 mcg Aspirin (Ecotrin) 81 mg PO DAILY [facility] Last Admin: 06/07/17 09:24 Dose: 81 mg Atorvastatin Calcium (Lipitor) 10 mg PO DIN [facility] Last Admin: 06/06/17 16:56 Dose: 10 mg Azithromycin (Zithromax) 500 mg PO DAILY [facility] PRN Reason: Protocol Last Admin: 06/07/17 09:24 Dose: 500 mg Budesonide (Pulmicort Respules) 1 mg IH [id number] [facility] Last Admin: 06/07/17 08:23 Dose: 1 mg Cholecalciferol (Vitamin D) 1,000 intlu PO DAILY [facility] Last Admin: 06/07/17 09:25 Dose: 1,000 intlu Furosemide (Lasix) 40 mg PO DAILY [facility] Last Admin: 06/07/17 09:24 Dose: 40 mg Guaifenesin/Dextromethorphan (Robitussin Dm) 5 ml PO Q4H PRN PRN Reason: Cough Last Admin: 06/06/17 21:52 Dose: 5 ml Heparin Sodium (Porcine) (Heparin) 5,000 units SC Q12 GRETEL PRN Reason: Protocol Last Admin: 06/07/17 09:26 Dose: 5,000 units Cefepime HCl (Maxipime 1gm) 1 gm in 100 mls @ 100 mls/hr IVPB Q8 GRETEL PRN Reason: Protocol Last Admin: 06/07/17 06:43 Dose: 100 mls/hr Levalbuterol HCl (Xopenex) 0.63 mg IH [id number] [facility] Last Admin: 06/07/17 08:24 Dose: 0.63 mg Levalbuterol HCl (Xopenex) 0.63 mg IH Q2 PRN PRN Reason: Shortness of Breath Levothyroxine Sodium (Synthroid) 100 mcg PO DAILY [facility] Last Admin: 06/07/17 09:25 Dose: 100 mcg Methylprednisolone (Solu-Medrol) 40 mg IVP DAILY [facility] Last Admin: 06/07/17 09:26 Dose: 40 mg Metoprolol Tartrate (Lopressor) 25 mg PO QPM [facility] Last Admin: 06/06/17 17:08 Dose: Not Given Metoprolol Tartrate (Lopressor) 25 mg PO .AM [facility] Montelukast Sodium (Singulair) 10 mg PO HS [facility] Last Admin: 06/06/17 21:52 Dose: 10 mg Pantoprazole Sodium (Protonix Ec Tab) 40 mg PO 0600 [facility] Last Admin: 06/07/17 06:47 Dose: Not Given Pantoprazole Sodium (Protonix Ec Tab) 40 mg PO 0600 [facility] Last Admin: 06/07/17 06:46 Dose: 40 mg Pneumococcal Polyvalent Vaccine (Pneumovax 23 Vaccine) 0.5 ml IM .ONCE ONE Stop: 06/08/17 10:01 Potassium Chloride (K-Dur 20 Meq Er Tab) 20 meq PO BRKDIN [facility] Last Admin: 06/07/17 09:25 Dose: 20 meq - Labs Labs: 06/07/17 07:00 06/07/17 07:00 PT 11.6 SECONDS (9.4-12.5) 06/06/17 13:00 INR 1.01 (0.93-1.08) 06/06/17 13:00 APTT 35.0 Seconds (25.1-36.5) 06/06/17 13:00 - Constitutional Appears: No Acute Distress - Head Exam Head Exam: ATRAUMATIC, NORMAL INSPECTION, NORMOCEPHALIC - Eye Exam Eye Exam: EOMI, Normal appearance, PERRL Pupil Exam: NORMAL ACCOMODATION, PERRL - ENT Exam ENT Exam: Mucous Membranes Moist, Normal Exam - Respiratory Exam Respiratory Exam: Decreased Breath Sounds, Rales, NORMAL BREATHING PATTERN - Cardiovascular Exam Cardiovascular Exam: REGULAR RHYTHM, +S1, +S2. absent: Murmur - GI/Abdominal Exam GI & Abdominal Exam: Soft, Normal Bowel Sounds. absent: Tenderness - Extremities Exam Extremities Exam: Pedal Edema, Tenderness - Neurological Exam Neurological Exam: Alert, Awake, CN II-XII Intact, Oriented x3 - Psychiatric Exam Psychiatric exam: Normal Affect, Normal Mood - Skin Skin Exam: Dry, Intact, Normal Color, Warm Assessment and Plan - Assessment and Plan (Free Text) Assessment: 76 F with a PMHx of COPD on home 02, CHF, hypertension, rheumatic fever as a child w/ heart disease sequela, hyperlipidemia, hypothyroidism, GERD, depression , gout, colonic polyps s/p multiple polypectomies and arrhythmia (unclear if Afib or not) s/p pacemaker who presents with 4 days of weakness, shortness of breath, and productive cough likely 2/2 COPD exacerbation. Despite hx of CHF, BNP is not elevated, no crackles heard on exam and CXR is unremarkable making CHF exacerbation less likely. Troponin I x1 negative and EKG showed paced rhythm. Flu was negative. 1. SOB and cough 2/2 COPD exacerbation - Duoneb GRETEL and PRN - Cefepime and Zithromax - cont Brovana, Singulair and Pulmicort - Robitussin PRN - solu-medrol 40mg IVP daily - keep head of bed elevated - strict I/O - CPAP HS - Pulm consulted, recs appreciated - Cardio consulted, recs appreciated 2. Hx CHF - cont home Lasix - strict I/O - baseline Echo done outpatient with Dr. Solomon - Cardio consulted, recs appreciated - Echo pending 3. Hypokalemia likely 2/2 diuretic use - continue K-Dur daily - supplement as needed - cont to monitor 4. Hx HTN - cont to monitor 5. Hx HLD - Lipitor 6. HX arryhthmia - cont Lopressor home dose 25mg PO AMHS 7. Hx Hypothyroid - cont synthroid 8. PPX - PTX for GI PPX - Heparin for DVT PPX Patient was seen, examined and discussed with attending, Dr. Mo <Glenis Mo - Last Filed: 06/07/17 15:00> Objective - Vital Signs/Intake and Output Vital Signs (last 24 hours): Temp Pulse Resp BP Pulse Ox 97.1 F L 89 18 148/76 95 06/07/17 12:00 06/07/17 12:00 06/07/17 12:00 06/07/17 12:00 06/06/17 20:32 Intake and Output: 06/07/17 06/07/17 06:59 18:59 Intake Total 240 Output Total 0 Balance 240 - Medications Medications: Current Medications Acetaminophen (Tylenol 325mg Tab) 650 mg PO Q4 PRN PRN Reason: Fever >100.4 F Alprazolam (Xanax) 0.25 mg PO BID PRN; Protocol PRN Reason: Anxiety Stop: 06/13/17 15:48 Last Admin: 06/07/17 06:57 Dose: 0.25 mg Arformoterol Tartrate (Brovana) 15 mcg IH [id number] [facility] Last Admin: 06/07/17 08:23 Dose: 15 mcg Aspirin (Ecotrin) 81 mg PO DAILY [facility] Last Admin: 06/07/17 09:24 Dose: 81 mg Atorvastatin Calcium (Lipitor) 10 mg PO DIN [facility] Last Admin: 06/06/17 16:56 Dose: 10 mg Azithromycin (Zithromax) 500 mg PO DAILY [facility] PRN Reason: Protocol Last Admin: 06/07/17 09:24 Dose: 500 mg Budesonide (Pulmicort Respules) 1 mg IH [id number] [facility] Last Admin: 06/07/17 08:23 Dose: 1 mg Cholecalciferol (Vitamin D) 1,000 intlu PO DAILY [facility] Last Admin: 06/07/17 09:25 Dose: 1,000 intlu Docusate Sodium (Colace) 100 mg PO BID [facility] Furosemide (Lasix) 40 mg PO DAILY [facility] Last Admin: 06/07/17 09:24 Dose: 40 mg Guaifenesin/Dextromethorphan (Robitussin Dm) 5 ml PO Q4H PRN PRN Reason: Cough Last Admin: 06/06/17 21:52 Dose: 5 ml Heparin Sodium (Porcine) (Heparin) 5,000 units SC Q12 GRETEL PRN Reason: Protocol Last Admin: 06/07/17 09:26 Dose: 5,000 units Cefepime HCl (Maxipime 1gm) 1 gm in 100 mls @ 100 mls/hr IVPB Q8 GRETEL PRN Reason: Protocol Last Admin: 06/07/17 14:14 Dose: 100 mls/hr Levalbuterol HCl (Xopenex) 0.63 mg IH [id number] [facility] Last Admin: 06/07/17 13:52 Dose: 0.63 mg Levalbuterol HCl (Xopenex) 0.63 mg IH Q2 PRN PRN Reason: Shortness of Breath Levothyroxine Sodium (Synthroid) 100 mcg PO DAILY [facility] Last Admin: 06/07/17 09:25 Dose: 100 mcg Methylprednisolone (Solu-Medrol) 40 mg IVP DAILY [facility] Last Admin: 06/07/17 09:26 Dose: 40 mg Metoprolol Tartrate (Lopressor) 25 mg PO QPM [facility] Last Admin: 06/06/17 17:08 Dose: Not Given Metoprolol Tartrate (Lopressor) 25 mg PO .AM [facility] Montelukast Sodium (Singulair) 10 mg PO HS [facility] Last Admin: 06/06/17 21:52 Dose: 10 mg Pantoprazole Sodium (Protonix Ec Tab) 40 mg PO 0600 [facility] Last Admin: 06/07/17 06:46 Dose: 40 mg Pneumococcal Polyvalent Vaccine (Pneumovax 23 Vaccine) 0.5 ml IM .ONCE ONE Stop: 06/08/17 10:01 Polyethylene Glycol (Miralax) 17 gm PO DAILY [facility] Last Admin: 06/07/17 14:14 Dose: 17 gm Potassium Chloride (K-Dur 20 Meq Er Tab) 20 meq PO BRKDIN [facility] Last Admin: 06/07/17 09:25 Dose: 20 meq - Labs Labs: 06/07/17 07:00 06/07/17 07:00 PT 11.6 SECONDS (9.4-12.5) 06/06/17 13:00 INR 1.01 (0.93-1.08) 06/06/17 13:00 APTT 35.0 Seconds (25.1-36.5) 06/06/17 13:00 Attending/Attestation - Attestation I have personally seen and examined this patient.: Yes I have fully participated in the care of the patient.: Yes I have reviewed all pertinent clinical information, including history, physical exam and plan: Yes Notes (Text): 06/07/17 14:58 attending note; Patient seen and examined with resident. Patient is a 76 yo female with a PMH of chronic obstructive pulmonary disease, congestive heart failure, hypertension, s/p pacemaker, rheumatic fever as a child with heart disease sequela, hyperlipidemia, hypothyroidism, depression, gout, and colonic polyps s/p multiple polypectomies who presents with a productive cough, shortness of breath and pleuritic chest pain x4 days. the patient was referred from buffet runner office for shortness of breath. Patient is home oxygen dependent. Continue oxygen, DuoNeb treatment, IV Solu-Medrol, Zithromax. pulmonary evaluation requested. History of congestive heart failure;mild leg swelling noted. Currently on Lasix. Continue po potassium. echocardiogram ordered. Cardiology evaluation requested. PT evaluation requested. Upon discharge the patient will follow up with PMD Dr. Soloomn.
[2017-06-07] MEDS: POLYETHYLENE GLYCOL 3350 17 GM/Dose PACKET PO SCH (14:14)
--- NOTE | 2017-06-08 00:51 | CON ---
DATE: 06/07/2017 PULMONARY CONSULTATION HISTORY OF PRESENT ILLNESS: Cinthya Kimball is known to us from office followup as well as previous admission. She came to emergency room complaining of shortness of breath. This shortness of breath appeared relatively suddenly and increased over the past three days. She was sent in by her looping machine operator to emergency room. After several nebulizer treatments in the emergency room, her breathing started improving. PAST MEDICAL HISTORY: Positive for atrial fibrillation, chronic obstructive pulmonary disease, shortness of breath, hypoxia. In addition to that, she has history of GERD, depression, gout, rheumatic fever as a child, status post pacemaker. ALLERGIES: SHE IS ALLERGIC TO LEVOFLOXACIN. MEDICATIONS: Reviewed on JUN. FAMILY HISTORY: Positive for heart disease on both sides of the family. SOCIAL HISTORY: Former smoker, quit one year ago. Social drinker. Denies drug use. REVIEW OF SYSTEMS: Conducted by reviewing all sources. RESPIRATORY: See history of present illness. CARDIOVASCULAR: Denies chest pain or palpitations. GI: Denies nausea, vomiting, or diarrhea. The rest of the systems were reviewed and found to be negative. PHYSICAL EXAMINATION: GENERAL: The patient is awake, alert, and in no acute distress. LAST VITAL SIGNS: Temperature 98, pulse 80, respirations 18, blood pressure 136/70. HEENT: Within normal limits. NECK: Supple with no jugular vein distention. CHEST: Symmetrical. HEART: S1, S2. No S3, irregular. PULMONARY: Diminished breath sounds bilaterally with few rhonchi and end-expiratory wheezes. GI: Soft, nontender. No organomegaly. EXTREMITIES: No pedal edema. No cyanosis. SKIN: Clear with no skin rashes. NEUROLOGIC: No focal deficits. LABORATORY DATA: I reviewed her laboratory data. Her arterial blood gas showed pH of 7.46, pCO2 of 49, and pO2 of 54 and that is on room air. LABORATORY DATA: Her potassium was reduced to 3.4 ASSESSMENT: Exacerbation of chronic obstructive pulmonary disease, coronary artery disease, congestive heart failure, history of rheumatic fever as a child with heart disease sequelae, hypothyroidism, admitted with increased shortness of breath, improved with nebulizer treatment. Arterial blood gasses revealed mild CO2 retention and hypoxia with normal pH. Her BNP is not elevated, so her shortness of breath at this time is purely pulmonary in origin. We will continue with current antibiotic choice of cefepime and Zithromax. She started nebulizer treatment with Brovana and Pulmicort. She will continue with Singulair, Solu-Medrol was administered at moderate dose and will be tapered gradually. Her condition is guarded, but not critical. Horacio Newsome MD
--- NOTE | 2017-06-08 01:41 | CON ---
DATE: HISTORY OF PRESENT ILLNESS: The patient is a 76-year-old female, who has a history of chronic obstructive lung disease, hyperlipidemia, CHF, history of atrial fibrillation and pacemaker placement, presented because of what she described as shortness of breath as well as chest pain and back pain, and the patient felt very weak. The patient denies any syncope. SOCIAL HISTORY: Nonsmoker. MEDICATIONS: Brovana 15 mcg inhalation q. 12 hours, Colace 100 mg once a day, aspirin 81 mg once a day, heparin 5000 units subcutaneous twice a day, K-Dur 20 mEq twice a day, Lasix 40 mg p.o. once a day, Lipitor 10 mg once a day, Lopressor 25 mg twice a day, Maxipime 1 g intravenous q. 8 hours, Synthroid 100 mcg once a day, Solu-Medrol 40 mg intravenously daily, Xopenex inhaler, and Zithromax 500 mg daily. PHYSICAL EXAMINATION: GENERAL: The patient is an elderly female, who does not appear to be in any acute distress. VITAL SIGNS: Blood pressure 148/76, heart rate 89, temperature 97.1, respirations 18. HEENT: Normocephalic. CHEST: Bilateral rhonchi. HEART: S1 and S2 regular. ABDOMEN: Soft. EXTREMITIES: 2+ pitting edema. DIAGNOSTIC DATA: Chest x-ray revealed mild cardiomegaly and duel-chamber pacemaker and mild CHF, possible left lower lobe infiltrate and/or effusion. EKG reveals AV sequential pacemaker. LABORATORY DATA: Today's CBC is within normal limits. SMA-7: Sodium 139, potassium 3.6, chloride 94, CO2 of 33, glucose 164, BUN 24, creatinine 0.8. One set of troponin is negative. PT, PTT and INR are within normal limits. The most recent stress test was from August of 2014, which was reported to be an essentially normal study. ASSESSMENT: 1. Chest pain, rule out myocardial infarction. 2. History of duel-chamber pacemaker placement. 3. Rule out pneumonia. RECOMMENDATIONS: Continue current aspirin 81 mg once a day, subcutaneous heparin 5000 units twice a day, Lasix at 40 mg p.o. once a day, K-Dur 20 mEq once a day, continue Lipitor at 10 mg once a day, Lopressor 25 mg twice a day, Synthroid 100 mcg once a day, oral Zithromax is 500 mg daily. Obtain an echocardiogram. Koe Cummings MD
[2017-06-08] MEDS: Levalbuterol 0.63 MG/3 ML Inhal Soln UD IH SCH ×4 (03:30→19:41)
[2017-06-08] MEDS: Pantoprazole 40 mg EC Tab PO SCH (05:16)
[2017-06-08] MEDS: Cefepime 1gm in NS 100ml 1 GM/100 ML BAG IVPB SCH ×3 (05:16→21:50)
[2017-06-08 07:37] LABS: HEMOGLOBIN 12.9 g/dL (12.0-16.0); MEAN CELL VOLUME 93.7 fl (80.0-105.0); MEAN CORPUSCULAR HEMOGLOBIN 30.3 pg (25.0-35.0); MEAN CORPUSCULAR HGB CONC 32.3 g/dl (31.0-37.0); RBC 4.26 10^6/uL (3.5-6.1); RED CELL DISTRIBUTION WIDTH 14.3 % (11.5-14.5); WHITE BLOOD COUNT 13.7 10^3/ul (4.5-11.0)
[2017-06-08] MEDS: Budesonide 0.5 mg/2 ml Inhal Susp UD IH SCH ×2 (07:59→19:41)
[2017-06-08] MEDS: Arformoterol 15 mcg/2 ml Inh Sol IH SCH ×2 (07:59→19:41)
[2017-06-08 08:05] LABS: ALB/GLOB RATIO 1.2 (1.1-1.8); ALBUMIN 3.6 g/dL (3.0-4.8); ALT/SGPT 25 U/L (7-56); AST/SGOT 23 U/L (14-36); BLOOD UREA NITROGEN 34 mg/dL (7-21); GFR AFRICAN-AMERICAN > 60; GFR NON-AFRICAN AMERICAN 54
[2017-06-08] MEDS: Potassium Chloride 20 mEq ER Tab PO SCH ×2 (08:24→17:19)
[2017-06-08] MEDS: MethylPREDNISolone 40 mg Vial IVP SCH (09:17)
[2017-06-08] MEDS: Levothyroxine 100 MCG TAB PO SCH (09:18)
[2017-06-08] MEDS: POLYETHYLENE GLYCOL 3350 17 GM/Dose PACKET PO SCH (09:18)
[2017-06-08] MEDS: Cholecalciferol 1,000 INTLU TAB PO SCH (09:19)
[2017-06-08] MEDS ORDERED: Pneumococcal 23-Valent Vaccine IM ONE (10:00)
[2017-06-08] MEDS ORDERED: Influenza Vaccine 60 mcg/0.5 mL SYR (4YR UP) IM ONE (10:00)
[2017-06-08] MEDS: Enoxaparin 40 mg Syringe SC SCH (11:46)
[2017-06-08] MEDS: Ammonium Lactate 12% Cream (140 g) TOP SCH ×2 (12:10→17:20)
--- NOTE | 2017-06-08 13:42 | PN ---
DATE: 06/08/2017 REASON FOR CONSULTATION AND FOLLOWUP: Shortness of breath, chest pain, status post pacemaker. SUBJECTIVE: The patient denies any chest pain feels a lot better. Shortness of breath has improved, yesterday had a chest pain. PHYSICAL EXAMINATION: As follows: VITAL SIGNS: Temperature afebrile, heart rate , blood pressure 120/60. HEENT: PERRLA. Extraocular muscles intact. NECK: Supple. No carotid bruit or thyromegaly. CHEST: Clear to auscultation. HEART: S1, S2 regular. ABDOMEN: Soft. EXTREMITIES: Clubbing and cyanosis negative. LABORATORY DATA: Blood workup as follows: WBC 13.7, hematocrit 12.9, hematocrit 39.9, platelet count 176. Chemistry showed sodium 141, potassium 4, chloride 98, carbon dioxide 35, anion gap 13, BUN 34 and creatinine 1.0. IMPRESSION: Acute exacerbation of chronic obstructive pulmonary disease, hypertension, hyperlipidemia, status post pacemaker, history of congestive heart failure after tobacco abuse, obesity, history of cholecystectomy, history of pacemaker, most recently pacemaker interrogation with battery life is 2 years, diastolic dysfunction, obstructive pulmonary disease, chronic obstructive pulmonary disease, last stress test in 2014. PLAN: Given the multiple risk factors for coronary artery disease, we will do echo and stress test tomorrow. This is the second admission though patient had a negative we will do the stress test, last stress was 3 years ago. We will keep her n.p.o. after 12:00 midnight for stress test in the morning. We will put some DVT prophylaxis as well. Thank you, Dr. Mo, for providing us the opportunity in taking care of the patient, Cinthya Kimball. We will follow with you. Jefferson Levine MD
--- NOTE | 2017-06-08 13:58 | CP.PCM.PN ---
<ReyDejuanwes - Last Filed: 06/08/17 13:54> Subjective - Date & Time of Evaluation Date of Evaluation: 06/08/17 Time of Evaluation: 10:00 - Subjective Subjective: Dr. Mo Service Patient was seen and examined at bedside. Patient was found to be resting comfortably. She does not endorse any acute complaints at this time. No acute or adverse events overnight. She states that he is tolerating oral intake, however still has not had a bowel movement overnight. Her pedal edema is improving and her shortness of breath is improving. Pt has noted to be moving her bladder.She denied fever, chills, shortness of breath, chest pains, abdominal pain, nausea, vomiting, diarrhea, constipation or urinary symptoms. Pt is for Echo and Cardiac stress test tomorrow. NPO after midnight. Objective - Vital Signs/Intake and Output Vital Signs (last 24 hours): Temp Pulse Resp BP Pulse Ox 97.9 F 71 18 104/52 L 99 06/08/17 12:00 06/08/17 12:00 06/08/17 12:00 06/08/17 12:00 06/08/17 05:48 Intake and Output: 06/08/17 06/08/17 06:59 18:59 Intake Total 240 Output Total 0 Balance 240 - Medications Medications: Current Medications Acetaminophen (Tylenol 325mg Tab) 650 mg PO Q4 PRN PRN Reason: Fever >100.4 F Alprazolam (Xanax) 0.25 mg PO BID PRN; Protocol PRN Reason: Anxiety Stop: 06/13/17 15:48 Last Admin: 06/07/17 06:57 Dose: 0.25 mg Arformoterol Tartrate (Brovana) 15 mcg IH [id number] [facility] Last Admin: 06/08/17 07:59 Dose: 15 mcg Aspirin (Ecotrin) 81 mg PO DAILY [facility] Last Admin: 06/08/17 09:18 Dose: 81 mg Atorvastatin Calcium (Lipitor) 10 mg PO DIN [facility] Last Admin: 06/07/17 18:05 Dose: 10 mg Azithromycin (Zithromax) 500 mg PO DAILY [facility] PRN Reason: Protocol Last Admin: 06/08/17 09:19 Dose: 500 mg Budesonide (Pulmicort Respules) 1 mg IH [id number] [facility] Last Admin: 06/08/17 07:59 Dose: 1 mg Cholecalciferol (Vitamin D) 1,000 intlu PO DAILY [facility] Last Admin: 06/08/17 09:19 Dose: 1,000 intlu Docusate Sodium (Colace) 100 mg PO BID [facility] Last Admin: 06/08/17 09:18 Dose: 100 mg Enoxaparin Sodium (Lovenox) 40 mg SC DAILY GRETEL PRN Reason: Protocol Last Admin: 06/08/17 11:46 Dose: Not Given Furosemide (Lasix) 40 mg PO DAILY [facility] Last Admin: 06/08/17 09:18 Dose: 40 mg Guaifenesin/Dextromethorphan (Robitussin Dm) 5 ml PO Q4H PRN PRN Reason: Cough Last Admin: 06/06/17 21:52 Dose: 5 ml Cefepime HCl (Maxipime 1gm) 1 gm in 100 mls @ 100 mls/hr IVPB Q8 GRETEL PRN Reason: Protocol Last Admin: 06/08/17 05:16 Dose: 100 mls/hr Lactic Acid (Lac-Hydrin 12% Cream (140 G)) 0 ea TOP BID [facility] Last Admin: 06/08/17 12:10 Dose: 2 applic Levalbuterol HCl (Xopenex) 0.63 mg IH [id number] [facility] Last Admin: 06/08/17 13:37 Dose: 0.63 mg Levalbuterol HCl (Xopenex) 0.63 mg IH Q2 PRN PRN Reason: Shortness of Breath Levothyroxine Sodium (Synthroid) 100 mcg PO DAILY [facility] Last Admin: 06/08/17 09:18 Dose: 100 mcg Methylprednisolone (Solu-Medrol) 40 mg IVP DAILY [facility] Last Admin: 06/08/17 09:17 Dose: 40 mg Metoprolol Tartrate (Lopressor) 25 mg PO QPM [facility] Last Admin: 06/07/17 18:05 Dose: 25 mg Metoprolol Tartrate (Lopressor) 25 mg PO .AM [facility] Montelukast Sodium (Singulair) 10 mg PO HS [facility] Last Admin: 06/07/17 21:43 Dose: 10 mg Pantoprazole Sodium (Protonix Ec Tab) 40 mg PO 0600 [facility] Last Admin: 06/08/17 05:16 Dose: 40 mg Polyethylene Glycol (Miralax) 17 gm PO DAILY [facility] Last Admin: 06/08/17 09:18 Dose: 17 gm Potassium Chloride (K-Dur 20 Meq Er Tab) 20 meq PO BRKDIN GRETEL Last Admin: 06/08/17 08:24 Dose: 20 meq - Labs Labs: 06/08/17 07:00 06/08/17 07:00 PT 11.6 SECONDS (9.4-12.5) 06/06/17 13:00 INR 1.01 (0.93-1.08) 06/06/17 13:00 APTT 35.0 Seconds (25.1-36.5) 06/06/17 13:00 - Constitutional Appears: No Acute Distress - Head Exam Head Exam: ATRAUMATIC, NORMAL INSPECTION, NORMOCEPHALIC - Eye Exam Eye Exam: EOMI, Normal appearance, PERRL - ENT Exam ENT Exam: Mucous Membranes Moist, Normal Exam - Neck Exam Neck Exam: Full ROM, Normal Inspection. absent: Lymphadenopathy - Respiratory Exam Respiratory Exam: Rhonchi, Wheezes, NORMAL BREATHING PATTERN - Cardiovascular Exam Cardiovascular Exam: REGULAR RHYTHM, +S1, +S2. absent: Murmur - GI/Abdominal Exam GI & Abdominal Exam: Soft, Normal Bowel Sounds. absent: Tenderness - Extremities Exam Extremities Exam: Pedal Edema (+2), Tenderness - Neurological Exam Neurological Exam: Alert, Awake, CN II-XII Intact, Oriented x3 - Psychiatric Exam Psychiatric exam: Normal Affect, Normal Mood - Skin Skin Exam: Dry, Intact, Normal Color, Warm Assessment and Plan - Assessment and Plan (Free Text) Assessment: 76 F with a PMHx of COPD on home 02, CHF, hypertension, rheumatic fever as a child w/ heart disease sequela, hyperlipidemia, hypothyroidism, GERD, depression , gout, colonic polyps s/p multiple polypectomies and arrhythmia (unclear if Afib or not) s/p pacemaker who presents with 4 days of weakness, shortness of breath, and productive cough likely 2/2 COPD exacerbation. Despite hx of CHF, BNP is not elevated, no crackles heard on exam and CXR is unremarkable making CHF exacerbation less likely. Troponin I negative and EKG showed paced rhythm. Flu was negative. 1. SOB and cough 2/2 COPD exacerbation - Duoneb GRETEL and PRN - Cefepime and Zithromax - cont Brovana, Singulair and Pulmicort - Robitussin PRN - solu-medrol 40mg IVP daily - keep head of bed elevated - strict I/O - CPAP HS - Pulm consulted, recs appreciated - Cardio consulted, recs appreciated 2. Hx CHF - cont home Lasix - strict I/O - baseline Echo done outpatient with Dr. Solomon - Cardio consulted, recs appreciated - Echo and stress test for friday06/09/17, NPO after midnight 3. Hypokalemia likely 2/2 diuretic use - continue K-Dur daily - supplement as needed - cont to monitor 4. Hx HTN - cont to monitor 5. Hx HLD - Lipitor 6. HX arryhthmia - cont Lopressor home dose 25mg PO AMHS 7. Hx Hypothyroid - cont synthroid 8. PPX - PTX for GI PPX - Heparin for DVT PPX Patient was seen, examined and discussed with attending, Dr. Mo <Glenis Mo - Last Filed: 06/08/17 15:21> Objective - Vital Signs/Intake and Output Vital Signs (last 24 hours): Temp Pulse Resp BP Pulse Ox 97.9 F 71 18 104/52 L 99 06/08/17 12:00 06/08/17 12:00 06/08/17 12:00 06/08/17 12:00 06/08/17 05:48 Intake and Output: 06/08/17 06/08/17 06:59 18:59 Intake Total 240 Output Total 0 Balance 240 - Medications Medications: Current Medications Acetaminophen (Tylenol 325mg Tab) 650 mg PO Q4 PRN PRN Reason: Fever >100.4 F Alprazolam (Xanax) 0.25 mg PO BID PRN; Protocol PRN Reason: Anxiety Stop: 06/13/17 15:48 Last Admin: 06/07/17 06:57 Dose: 0.25 mg Arformoterol Tartrate (Brovana) 15 mcg IH [id number] [facility] Last Admin: 06/08/17 07:59 Dose: 15 mcg Aspirin (Ecotrin) 81 mg PO DAILY [facility] Last Admin: 06/08/17 09:18 Dose: 81 mg Atorvastatin Calcium (Lipitor) 10 mg PO DIN [facility] Last Admin: 06/07/17 18:05 Dose: 10 mg Azithromycin (Zithromax) 500 mg PO DAILY [facility] PRN Reason: Protocol Last Admin: 06/08/17 09:19 Dose: 500 mg Budesonide (Pulmicort Respules) 1 mg IH [id number] [facility] Last Admin: 06/08/17 07:59 Dose: 1 mg Cholecalciferol (Vitamin D) 1,000 intlu PO DAILY [facility] Last Admin: 06/08/17 09:19 Dose: 1,000 intlu Docusate Sodium (Colace) 100 mg PO BID [facility] Last Admin: 06/08/17 09:18 Dose: 100 mg Enoxaparin Sodium (Lovenox) 40 mg SC DAILY GRETEL PRN Reason: Protocol Last Admin: 06/08/17 11:46 Dose: Not Given Furosemide (Lasix) 40 mg PO DAILY [facility] Last Admin: 06/08/17 09:18 Dose: 40 mg Guaifenesin/Dextromethorphan (Robitussin Dm) 5 ml PO Q4H PRN PRN Reason: Cough Last Admin: 06/06/17 21:52 Dose: 5 ml Cefepime HCl (Maxipime 1gm) 1 gm in 100 mls @ 100 mls/hr IVPB Q8 GRETEL PRN Reason: Protocol Last Admin: 06/08/17 14:06 Dose: 100 mls/hr Lactic Acid (Lac-Hydrin 12% Cream (140 G)) 0 ea TOP BID [facility] Last Admin: 06/08/17 12:10 Dose: 2 applic Levalbuterol HCl (Xopenex) 0.63 mg IH [id number] [facility] Last Admin: 06/08/17 13:37 Dose: 0.63 mg Levalbuterol HCl (Xopenex) 0.63 mg IH Q2 PRN PRN Reason: Shortness of Breath Levothyroxine Sodium (Synthroid) 100 mcg PO DAILY [facility] Last Admin: 06/08/17 09:18 Dose: 100 mcg Methylprednisolone (Solu-Medrol) 40 mg IVP DAILY [facility] Last Admin: 06/08/17 09:17 Dose: 40 mg Metoprolol Tartrate (Lopressor) 25 mg PO QPM [facility] Last Admin: 06/07/17 18:05 Dose: 25 mg Metoprolol Tartrate (Lopressor) 25 mg PO .AM [facility] Montelukast Sodium (Singulair) 10 mg PO HS [facility] Last Admin: 06/07/17 21:43 Dose: 10 mg Pantoprazole Sodium (Protonix Ec Tab) 40 mg PO 0600 [facility] Last Admin: 06/08/17 05:16 Dose: 40 mg Polyethylene Glycol (Miralax) 17 gm PO DAILY [facility] Last Admin: 06/08/17 09:18 Dose: 17 gm Potassium Chloride (K-Dur 20 Meq Er Tab) 20 meq PO BRKDIN [facility] Last Admin: 06/08/17 08:24 Dose: 20 meq - Labs Labs: 06/08/17 07:00 06/08/17 07:00 PT 11.6 SECONDS (9.4-12.5) 06/06/17 13:00 INR 1.01 (0.93-1.08) 06/06/17 13:00 APTT 35.0 Seconds (25.1-36.5) 06/06/17 13:00 Attending/Attestation - Attestation I have personally seen and examined this patient.: Yes I have fully participated in the care of the patient.: Yes I have reviewed all pertinent clinical information, including history, physical exam and plan: Yes Notes (Text): 06/08/17 15:18 attending note; Patient seen and examined with resident. Patient is a 76 yo female with a PMH of chronic obstructive pulmonary disease, congestive heart failure, hypertension, s/p pacemaker, rheumatic fever as a child with heart disease sequela, hyperlipidemia, hypothyroidism, depression, gout, and colonic polyps s/p multiple polypectomies who presents with a productive cough, shortness of breath and pleuritic chest pain x4 days. COPD exacerbation. Improving slowly. Patient is home oxygen dependent. Continue oxygen, DuoNeb treatment, IV Solu-Medrol, IV cefepime and Zithromax. pulmonary evaluation appreciated. History of congestive heart failure;mild leg swelling noted. Currently on Lasix. Continue po potassium. echocardiogram ordered. Cardiology evaluation appreciated. Plan for stress test tomorrow. Nothing by mouth past midnight. PT evaluation requested. Upon discharge the patient will follow up with PMD Dr. Solomon.
[2017-06-09] MEDS: guaiFENesin DM 100 mg-10 mg/5 ml UD PO PRN (00:17)
[2017-06-09] MEDS: Levalbuterol 0.63 MG/3 ML Inhal Soln UD IH SCH ×4 (01:02→20:26)
[2017-06-09] MEDS: Cefepime 1gm in NS 100ml 1 GM/100 ML BAG IVPB SCH ×2 (05:24→21:18)
[2017-06-09] MEDS: Pantoprazole 40 mg EC Tab PO SCH (05:24)
[2017-06-09 06:41] LABS: HEMOGLOBIN 12.6 g/dL (12.0-16.0); MEAN CORPUSCULAR HEMOGLOBIN 30.1 pg (25.0-35.0); MEAN CORPUSCULAR HGB CONC 32.1 g/dl (31.0-37.0); MEAN PLATELET VOLUME 10.7 fl (7.0-11.0); RBC 4.18 10^6/uL (3.5-6.1); RED CELL DISTRIBUTION WIDTH 14.4 % (11.5-14.5); WHITE BLOOD COUNT 10.1 10^3/ul (4.5-11.0)
[2017-06-09 06:52] LABS: ALB/GLOB RATIO 1.2 (1.1-1.8); ALBUMIN 3.5 g/dL (3.0-4.8); ALT/SGPT 22 U/L (7-56); AST/SGOT 24 U/L (14-36); BLOOD UREA NITROGEN 31 mg/dL (7-21); CALCIUM 10.2 mg/dL (8.4-10.5); GFR AFRICAN-AMERICAN > 60; GFR NON-AFRICAN AMERICAN > 60
[2017-06-09] MEDS: Budesonide 0.5 mg/2 ml Inhal Susp UD IH SCH ×2 (07:43→20:26)
[2017-06-09] MEDS: Arformoterol 15 mcg/2 ml Inh Sol IH SCH ×2 (07:43→20:26)
[2017-06-09] MEDS: Potassium Chloride 20 mEq ER Tab PO SCH ×2 (08:25→17:34)
--- NOTE | 2017-06-09 09:09 | PN ---
DATE: SUBJECTIVE: The patient appears comfortable this morning. She is not short of breath at rest. OBJECTIVE VITAL SIGNS: Temperature is 97.8, pulse 64, respirations 18, blood pressure 121/52. Oxygen saturation on nasal cannula is 97%. HEENT: Normocephalic, atraumatic. NECK: No JVD. CARDIOVASCULAR: Systolic ejection murmur at the lower left sternal border. No S3 gallop. LUNGS: Decreased breath sounds at the bases. Minimal rhonchi. No wheezing. EXTREMITIES: Mild edema. No cyanosis, no clubbing. Calves are nontender to palpation. GASTROINTESTINAL: Abdomen is soft, nontender, nondistended. Bowel sounds are positive. SKIN: No acute rash. NEUROLOGIC: Limited at the present time. IMPRESSION 1. Recurrent bronchitis. 2. Chronic obstructive pulmonary disease. 3. Cardiac arrhythmias. 4. Hypertension. PLAN: The patient appears comfortable this morning. She is not short of breath at rest. She does state to feeling much better overall. On physical exam, there is only minimal bronchospasm noted. In addition, the oxygen saturation on nasal cannula is 95-97%. I will continue the current nebulizer treatments and low-dose intravenous steroids for now. The patient also remains on antibiotic therapy. There are no temperatures noted. Pulmonary status of the patient is certainly improved - compared to the initial presentation. I did review the note by Cardiology (Dr. Levine). The patient is for stress testing this morning. Clinical status of the patient is certainly improved - compared to the initial presentation. I will discuss the above with the attending physician. Giovanni Rogers MD MTDD
[2017-06-09] MEDS: Ammonium Lactate 12% Cream (140 g) TOP SCH ×2 (10:00→19:14)
[2017-06-09] MEDS ORDERED: Aminophylline 25 mg/ml Inj ONE (10:59)
--- NOTE | 2017-06-09 13:20 | PN ---
DATE: 06/09/2017 REASON FOR CONSULTATION AND FOLLOWUP: Shortness of breath, chest pain, status post pacemaker. SUBJECTIVE: The patient denies any chest pain, complaining of mild shortness of breath, awaiting to go for a stress test. OBJECTIVE GENERAL: Not in apparent distress. VITAL SIGNS: Temperature afebrile, heart rate 64, blood pressure 120/51. HEENT: PERRLA. Extraocular muscles intact. NECK: Supple. No carotid bruits or thyromegaly. CHEST: Clear to auscultation. HEART: S1 and S2 regular. ABDOMEN: Soft. EXTREMITIES: Clubbing and cyanosis negative. LABORATORY DATA: Blood workup as follows: WBC 10.8, hemoglobin 12.6, hematocrit 39.3, platelet count 171,000. Chemistry showed sodium 141, potassium 4.5, chloride 100, carbon dioxide 32, anion gap of 14, BUN 31, creatinine 0.9. IMPRESSION: Acute exacerbation of chronic obstructive pulmonary disease, status post pacemaker, status post pacemaker generator change, obesity, active tobacco abuse, hypertension, hyperlipidemia, history of cholecystectomy, history of pacemaker, most recently pacemaker interrogation with the battery life of 2 years; diastolic dysfunction, last stress test in 2014. RECOMMENDATIONS: Because of multiple reasons, the patient is scheduled for a stress test. Today, we will keep n.p.o and do the stress test. Further recommendation will be made. After the stress test, we will discontinue telemetry. In the interim, continue aspirin, continue Lasix, continue atorvastatin, continue metoprolol, continue DVT prophylaxis. Thank you, Dr. Mo for providing us the opportunity in taking care of the patient, Cinthya Kimball. We will get echo and stress test today. We will discontinue telemetry. Jefferson Levine MD
[2017-06-09] MEDS: MethylPREDNISolone 40 mg Vial IVP SCH (14:48)
[2017-06-09] MEDS: Cholecalciferol 1,000 INTLU TAB PO SCH (14:48)
[2017-06-09] MEDS: POLYETHYLENE GLYCOL 3350 17 GM/Dose PACKET PO SCH (14:48)
[2017-06-09] MEDS: Enoxaparin 40 mg Syringe SC SCH (14:49)
--- NOTE | 2017-06-09 15:18 | CP.PCM.PN ---
<Joshua Sequeira - Last Filed: 06/09/17 15:28> Subjective - Date & Time of Evaluation Date of Evaluation: 06/09/17 Time of Evaluation: 07:50 - Subjective Subjective: Medicine progress note for Dr. Destinee Morgan Hospitalist Service Patient seen and examined. Patient reports that she is still experiencing a dry cough at this time. Patient denies dyspnea at this time. Patient states that she will have some chest wall tenderness if she coughs excessively. No other acute complaints. Objective - Vital Signs/Intake and Output Vital Signs (last 24 hours): Temp Pulse Resp BP Pulse Ox 97.8 F 64 18 119/75 97 06/09/17 06:00 06/09/17 06:00 06/09/17 06:00 06/09/17 14:48 06/09/17 06:00 Intake and Output: 06/09/17 06/09/17 06:59 18:59 Intake Total 800 Output Total 700 Balance 100 - Medications Medications: Current Medications Acetaminophen (Tylenol 325mg Tab) 650 mg PO Q4 PRN PRN Reason: Fever >100.4 F Last Admin: 06/08/17 21:01 Dose: 650 mg Alprazolam (Xanax) 0.25 mg PO BID PRN; Protocol PRN Reason: Anxiety Stop: 06/13/17 15:48 Last Admin: 06/07/17 06:57 Dose: 0.25 mg Arformoterol Tartrate (Brovana) 15 mcg IH [id number] [facility] Last Admin: 06/09/17 07:43 Dose: 15 mcg Aspirin (Ecotrin) 81 mg PO DAILY [facility] Last Admin: 06/09/17 14:48 Dose: 81 mg Atorvastatin Calcium (Lipitor) 10 mg PO DIN [facility] Last Admin: 06/08/17 17:19 Dose: 10 mg Azithromycin (Zithromax) 500 mg PO DAILY [facility] PRN Reason: Protocol Last Admin: 06/09/17 14:48 Dose: 500 mg Budesonide (Pulmicort Respules) 1 mg IH [id number] [facility] Last Admin: 06/09/17 07:43 Dose: 1 mg Cholecalciferol (Vitamin D) 1,000 intlu PO DAILY [facility] Last Admin: 06/09/17 14:48 Dose: 1,000 intlu Docusate Sodium (Colace) 100 mg PO BID [facility] Last Admin: 06/09/17 10:00 Dose: Not Given Enoxaparin Sodium (Lovenox) 40 mg SC DAILY [facility] PRN Reason: Protocol Last Admin: 06/09/17 14:49 Dose: 40 mg Furosemide (Lasix) 40 mg PO DAILY [facility] Last Admin: 06/09/17 14:48 Dose: 40 mg Guaifenesin/Dextromethorphan (Robitussin Dm) 5 ml PO Q4H PRN PRN Reason: Cough Last Admin: 06/09/17 00:17 Dose: 5 ml Cefepime HCl (Maxipime 1gm) 1 gm in 100 mls @ 100 mls/hr IVPB Q12 [facility] PRN Reason: Protocol Lactic Acid (Lac-Hydrin 12% Cream (140 G)) 0 ea TOP BID [facility] Last Admin: 06/09/17 10:00 Dose: Not Given Levalbuterol HCl (Xopenex) 0.63 mg IH [id number] [facility] Last Admin: 06/09/17 13:46 Dose: Not Given Levalbuterol HCl (Xopenex) 0.63 mg IH Q2 PRN PRN Reason: Shortness of Breath Levothyroxine Sodium (Synthroid) 100 mcg PO DAILY [facility] Last Admin: 06/08/17 09:18 Dose: 100 mcg Methylprednisolone (Solu-Medrol) 40 mg IVP DAILY [facility] Last Admin: 06/09/17 14:48 Dose: 40 mg Metoprolol Tartrate (Lopressor) 25 mg PO QPM [facility] Last Admin: 06/08/17 17:19 Dose: 25 mg Metoprolol Tartrate (Lopressor) 25 mg PO .AM [facility] Montelukast Sodium (Singulair) 10 mg PO HS [facility] Last Admin: 06/08/17 21:01 Dose: 10 mg Pantoprazole Sodium (Protonix Ec Tab) 40 mg PO 0600 [facility] Last Admin: 06/09/17 05:24 Dose: 40 mg Polyethylene Glycol (Miralax) 17 gm PO DAILY [facility] Last Admin: 06/09/17 14:48 Dose: 17 gm Potassium Chloride (K-Dur 20 Meq Er Tab) 20 meq PO BRKDIN [facility] Last Admin: 06/09/17 08:25 Dose: 20 meq - Labs Labs: 06/09/17 06:00 06/09/17 06:00 PT 11.6 SECONDS (9.4-12.5) 06/06/17 13:00 INR 1.01 (0.93-1.08) 06/06/17 13:00 APTT 35.0 Seconds (25.1-36.5) 06/06/17 13:00 - Constitutional Appears: No Acute Distress - Head Exam Head Exam: ATRAUMATIC, NORMOCEPHALIC - Eye Exam Eye Exam: EOMI, Normal appearance - ENT Exam ENT Exam: Mucous Membranes Dry - Respiratory Exam Respiratory Exam: Decreased Breath Sounds. absent: Rales, Rhonchi, Wheezes - Cardiovascular Exam Cardiovascular Exam: REGULAR RHYTHM, +S1, +S2 - GI/Abdominal Exam GI & Abdominal Exam: Soft, Normal Bowel Sounds. absent: Distended, Tenderness - Extremities Exam Extremities Exam: absent: Tenderness - Neurological Exam Neurological Exam: Alert, Awake, Oriented x3 - Psychiatric Exam Psychiatric exam: Normal Affect, Normal Mood - Skin Skin Exam: Dry, Warm Assessment and Plan - Assessment and Plan (Free Text) Plan: 76 F with a PMHx of COPD on home 02, CHF, hypertension, rheumatic fever as a child w/ heart disease sequela, hyperlipidemia, hypothyroidism, GERD, depression , gout, colonic polyps s/p multiple polypectomies and arrhythmia (unclear if Afib or not) s/p pacemaker who presents with 4 days of weakness, shortness of breath, and productive cough likely 2/2 COPD exacerbation. Despite hx of CHF, BNP is not elevated, no crackles heard on exam and CXR is unremarkable making CHF exacerbation less likely. Troponin I negative and EKG showed paced rhythm. Flu was negative. 1. Dyspnea and cough 2/2 COPD exacerbation - Levalbuterol GRETEL and PRN - Cefepime and Zithromax - cont Brovana, Singulair and Pulmicort - Robitussin PRN - solu-medrol 40mg IVP daily - keep head of bed elevated - strict I/O - CPAP HS - Pulmonology consulted, recs appreciated - Cardiology consulted, recs appreciated - follow up procalcitonin 2. History of CHF - cont home Lasix - strict I/O - baseline Echo done outpatient with Dr. Solomon - Cardio consulted, recs appreciated - F/u Echo and stress test 3. Hypokalemia likely secondary to diuretic use - continue K-Dur daily - supplement as needed - continue to monitor 4. History of Hypertension - continue to monitor 5. History of Hyperlipidemia - Lipitor 6. History of arrhythmia - continue Lopressor home dose 25mg PO AMHS 7. History of Hypothyroidism - continue synthroid 8. Prophylaxis - Protonix for GI Prophylaxis - Heparin for DVT Prophylaxis Disposition: Plan to discharge tomorrow. Patient was seen, examined and discussed with attending, Dr. Destinee Morgan <Destinee Morgan - Last Filed: 06/11/17 16:44> Objective - Vital Signs/Intake and Output Vital Signs (last 24 hours): Temp Pulse Resp BP Pulse Ox 97.7 F 63 18 100/60 94 L 06/11/17 12:14 06/11/17 15:00 06/11/17 15:00 06/11/17 15:00 06/11/17 07:00 Intake and Output: 06/11/17 06/11/17 06:59 18:59 Intake Total 420 Balance 420 - Medications Medications: Current Medications Acetaminophen (Tylenol 325mg Tab) 650 mg PO Q4 PRN PRN Reason: Fever >100.4 F Last Admin: 06/10/17 06:22 Dose: 650 mg Alprazolam (Xanax) 0.25 mg PO BID PRN; Protocol PRN Reason: Anxiety Stop: 06/13/17 15:48 Last Admin: 06/07/17 06:57 Dose: 0.25 mg Arformoterol Tartrate (Brovana) 15 mcg IH [id number] [facility] Last Admin: 06/11/17 08:00 Dose: Not Given Aspirin (Ecotrin) 81 mg PO DAILY [facility] Last Admin: 06/11/17 12:29 Dose: 81 mg Atorvastatin Calcium (Lipitor) 10 mg PO DIN [facility] Last Admin: 06/10/17 18:33 Dose: 10 mg Budesonide (Pulmicort Respules) 1 mg IH [id number] [facility] Last Admin: 06/11/17 08:00 Dose: Not Given Cholecalciferol (Vitamin D) 1,000 intlu PO DAILY [facility] Last Admin: 06/11/17 12:30 Dose: 1,000 intlu Docusate Sodium (Colace) 100 mg PO BID [facility] Last Admin: 06/11/17 12:29 Dose: 100 mg Furosemide (Lasix) 40 mg PO DAILY [facility] Guaifenesin/Dextromethorphan (Robitussin Dm) 5 ml PO Q4H PRN PRN Reason: Cough Last Admin: 06/09/17 00:17 Dose: 5 ml Lactic Acid (Lac-Hydrin 12% Cream (140 G)) 0 ea TOP BID [facility] Last Admin: 06/11/17 11:44 Dose: Not Given Levalbuterol HCl (Xopenex) 0.63 mg IH [id number] [facility] Last Admin: 06/11/17 07:53 Dose: 0.63 mg Levalbuterol HCl (Xopenex) 0.63 mg IH Q2 PRN PRN Reason: Shortness of Breath Levothyroxine Sodium (Synthroid) 100 mcg PO DAILY [facility] Last Admin: 06/11/17 10:22 Dose: 100 mcg Metoprolol Tartrate (Lopressor) 25 mg PO QPM [facility] Last Admin: 06/10/17 18:34 Dose: 25 mg Metoprolol Tartrate (Lopressor) 25 mg PO .AM [facility] Last Admin: 06/11/17 06:30 Dose: 25 mg Montelukast Sodium (Singulair) 10 mg PO HS [facility] Last Admin: 06/10/17 21:37 Dose: 10 mg Pantoprazole Sodium (Protonix Ec Tab) 40 mg PO 0600 [facility] Last Admin: 06/11/17 06:08 Dose: 40 mg Polyethylene Glycol (Miralax) 17 gm PO DAILY [facility] Last Admin: 06/11/17 12:43 Dose: Not Given Potassium Chloride (K-Dur 20 Meq Er Tab) 20 meq PO BRKDIN [facility] Last Admin: 06/11/17 10:22 Dose: 20 meq Prednisone (Prednisone Tab) 30 mg PO DAILY [facility] Last Admin: 06/11/17 12:30 Dose: 30 mg Tramadol HCl (Ultram) 50 mg PO TID PRN PRN Reason: Pain, moderate (4-7) Last Admin: 06/10/17 18:34 Dose: 50 mg - Labs Labs: 06/11/17 10:00 06/11/17 10:00 PT 11.6 SECONDS (9.4-12.5) 06/06/17 13:00 INR 1.01 (0.93-1.08) 06/06/17 13:00 APTT 35.0 Seconds (25.1-36.5) 06/06/17 13:00 Attending/Attestation - Attestation I have personally seen and examined this patient.: Yes I have fully participated in the care of the patient.: Yes I have reviewed all pertinent clinical information, including history, physical exam and plan: Yes Notes (Text): I have seen and examined the patient with the resident at the bedside. Agree with the above note with the following additions/ exceptions: Briefly this is 76 year old female with history of COPD on home oxygen, CHF secondary to diastolic dysfunction, HTN, PPM, dyslipidemia, hypothyroidism, depression, gout , colonic polyps who presented with cough, dyspnea, chest pain and found to have COPD exacerbation. Continue oxygen, DuoNeb and IV Solu-Medrol. Procal is low. Will stop antibiotics. Discussed with telephone clerks supervisor. Leg swelling has improved. Continue lasix. Patient is scheduled for echo and stress test today. We will follow up on results. PT cleared the patient to go home. Upon discharge patient will follow up with Dr Solomon and Dr Rogers. Dr Destinee Morgan
--- NOTE | 2017-06-09 17:55 | CARD ---
APPROVED REPORT EXAM: Two-dimensional and M-mode echocardiogram with Doppler and color Doppler. INDICATION Chest Pain LVFX 2D DIMENSIONS Left Atrium (2D)4.1 (1.6-4.0cm)IVSd0.9 (0.7-1.1cm) LVDd4.3 (3.9-5.9cm)PWd1.0 (0.7-1.1cm) LVDs2.8 (2.5-4.0cm)FS (%) 34.6 % LVEF (%)64.0 (>50%) M-Mode DIMENSIONS Aortic Root3.00 (2.2-3.7cm)Aortic Cusp Exc.1.60 (1.5-2.0cm) Aortic Valve AoV Peak Mbpkvpyp623.0cm/sAoV VTI41.3cmAO Peak GR.15mmHg AO Mean GR.8mmHgAI P 1/2 [id number] Mitral Valve MV E Rpkkqqsb710.0cm/sMV A Diidtqgp275.0cm/sE/A ratio0.9 TDI Lateral E' Peak V8.38cm/sMedial E' Peak V7.41cm/sE/Lateral E'11.9 E/Medial E'13.5 Pulmonary Valve PV Peak Mrbcujgx268.0cm/sPV Peak Grad.7mmHg Tricuspid Valve TR Peak Bctotion870cu/sRAP [id number] Peak Gr.25mmHg [id number] LEFT VENTRICLE The left ventricle is normal size. There is normal left ventricular wall thickness. The left ventricular function is normal.EF-60-65% There is normal LV segmental wall motion. Transmitral Doppler flow pattern is Grade III-reversible restrictive diastolic dysfunction. No left ventricle thrombus noted on this study. There is no ventricular septal defect visualized. There is no left ventricular aneurysm. There is no mass noted in the left ventricle. RIGHT VENTRICLE The right ventricle is normal size. There is normal right ventricular wall thickness. The right ventricular systolic function is normal. ATRIA The left atrium is mildly dilated. The right atrium size is normal. The interatrial septum is intact with no evidence for an atrial septal defect. AORTIC VALVE The aortic valve is calcified but opens well. There is mild to moderate aortic regurgitation. Aortic Sclerosis Vs Mild As There is no aortic valvular vegetation. MITRAL VALVE The mitral valve is thickened but opens well. Mitral regurgitation is mild to moderate. There is no mitral valve stenosis. There is no evidence of mitral valve prolapse. TRICUSPID VALVE The tricuspid valve leaflets are thickened , but open well. There is mild tricuspid regurgitation.RVSP-35 mmof Hg. There is no tricuspid valve stenosis. There is no tricuspid valve prolapse or vegetation. PULMONIC VALVE The pulmonic valve is borderline thickened. There is trace pulmonic valvular regurgitation. There is no pulmonic valvular stenosis. GREAT VESSELS The aortic root is normal in size. The ascending aorta is normal in size. The pulmonary artery is normal. The IVC is normal in size and collapses >50% with inspiration. PERICARDIAL EFFUSION There is no pleural effusion. There is no pericardial effusion. <Conclusion> The left ventricle is normal size. There is normal left ventricular wall thickness. The left ventricular function is normal.EF-60-65% There is mild to moderate aortic regurgitation. Aortic Sclerosis Vs Mild As Mitral regurgitation is mild to moderate. There is mild tricuspid regurgitation.RVSP-35 mmof Hg. The IVC is normal in size and collapses >50% with inspiration. There is no pericardial effusion.
[2017-06-09] MEDS: Levothyroxine 100 MCG TAB PO SCH (19:13)
--- NOTE | 2017-06-09 23:08 | CARD ---
APPROVED REPORT Protocol: LEXISCAN Test Type: Lexiscan Sestamibi Stress Test Attending Physician: Dr. Jefferson Solomon Referring Physician: Dr. SIS JANE Test Indications: CAD Height:5 ft 4 in Weight:185lbs Medications: TYLENOL, XANAX, BROVANA, ASPIRIN, LIPITOR, ZITHROMAX, PULMICORT, MAXIPIME, VITAMIN D, COLACE, LOVENOX, LASIX, ROBITUSSIN, SYNTHROID, SOLU-MEDROL, LOPESSOR, SINGULAIR, PROTONIX, MIRALAX, K-DUR Medical History: 76 YEAR OLD FEMALE WITH A H/O CHF, HTN, HIGH CHOLESTEROL, HYPOTHYROID AND PACEMAKER Target HR: 144 bpm Resting ECG: RSR. Tall R in V1 Suggest RVH. Resting Heart Rate: 63 bpm Resting Blood Pressure: 128/72mmHg Submaximum (85%): 122 bpm PROCEDURE Pharmacologic stress testing was performed using 0.4mg per 5ml of regadenoson given intravenously over 7-10 seconds. Reversal agent aminophyline 100 mg, given intravenously for Dyspnea. POST EXERCISE Reason for Termination: Protocol completed Target HR: No Max HR: 65 bpm 70% of Maximum Predicted HR: 144 bpm Exercise duration: 00:39 min:sec, 0 Stage Exercise capacity: 1.0METs Max Blood Pressure: 128/72mmHg Blood Pressure response to exercise: normal resting BP - appropriate response Heart Rate response to exercise: appropriate Chest Pain: No, none Angina index: 0 Arrhythmia: No, none ST Change: No, none Deviation: 0 mm INTERPRETATION Stress EKG Conclusion: IV LEXISCAN NUCLEAR STRESS TEST NEGATIVE FOR CHEST PAIN AND NEGATIVE FOR ST-T CHANGES. NUCLEAR SCAN REPORT PENDING. Signed by Jefferson Solomon Electronically Approved: 06/09/2017 12:37:03 EXAM: Myocardial Perfusion REST/STRESS Stress Test Type: Pharmacologic Imaging Protocol Rest Spect myocardial perfusion imaging was performed in supine position 50 minutes following the injection of 10.3 mCi of Tc-99 Myoview. At peak stress, the patient was injected intravenously with 30.8mCi of Tc-99 tetrofosmin after an exercise time of 0 minutes and 10 seconds. Gated Stress Spect was performed 65 minutes after intravenous Tc-99 Myoview injection. The images were gated to evaluate regional wall motion and calculate ventricular ejection fraction.Images were reconstructed using backfilter projection method in short horizontal and verticle long axis. Spect slices were generated. LV Perfusion The quality of the study is good. The left ventricle is normal in size. The right ventricle is unremarkable. The lung uptake is within normal limits. The distribution of tracer reveals an area of moderately decreased perfusion in the distal anterior and apical peterson on the stress studyy. The remainder of the LV myocardium is unremarkable. The rest myocardial perfusion study shows partial improvement of the anterior and apical defects. Wall Motion Wall motion study shows normal contractility of the left ventricle. LVEF = 72%. Conclusion 1. Abnormal SPECT myocardial perfusion study. 2. Partially reversible, distal anterior and apical defects are suspicious of ischemia. Portion of the defects could be due to breast attenuation. 3. Normal gated wall motion of the left ventricle. 4. In comparison with the last study of 09/14/2014, the defects appear larger and more prominent in the current study.
[2017-06-10] MEDS: Levalbuterol 0.63 MG/3 ML Inhal Soln UD IH SCH ×4 (01:26→19:59)
[2017-06-10] MEDS: Pantoprazole 40 mg EC Tab PO SCH (05:06)
[2017-06-10] MEDS: Budesonide 0.5 mg/2 ml Inhal Susp UD IH SCH ×2 (07:54→19:58)
[2017-06-10] MEDS: Arformoterol 15 mcg/2 ml Inh Sol IH SCH ×2 (07:54→19:58)
[2017-06-10] MEDS ORDERED: Oxycodone/Acetaminophen 5/325 mg Tab PO STA (09:41)
[2017-06-10] MEDS: POLYETHYLENE GLYCOL 3350 17 GM/Dose PACKET PO SCH (10:19)
[2017-06-10] MEDS: Potassium Chloride 20 mEq ER Tab PO SCH ×2 (10:19→18:33)
[2017-06-10] MEDS: Cholecalciferol 1,000 INTLU TAB PO SCH (10:20)
[2017-06-10] MEDS: Enoxaparin 40 mg Syringe SC SCH (10:23)
[2017-06-10] MEDS: Ammonium Lactate 12% Cream (140 g) TOP SCH ×2 (10:23→18:20)
[2017-06-10] MEDS: Cefepime 1gm in NS 100ml 1 GM/100 ML BAG IVPB SCH (10:24)
[2017-06-10] MEDS: MethylPREDNISolone 40 mg Vial IVP SCH (10:24)
[2017-06-10 11:11] LABS: ALB/GLOB RATIO 1.3 (1.1-1.8); ALBUMIN 4.3 g/dL (3.0-4.8); ALT/SGPT 34 U/L (7-56); AST/SGOT 35 U/L (14-36); BLOOD UREA NITROGEN 26 mg/dL (7-21); CALCIUM 10.6 mg/dL (8.4-10.5); GFR AFRICAN-AMERICAN > 60; GFR NON-AFRICAN AMERICAN > 60
[2017-06-10 11:12] LABS: HEMOGLOBIN 14.1 g/dL (12.0-16.0); MEAN CORPUSCULAR HEMOGLOBIN 30.5 pg (25.0-35.0); MEAN CORPUSCULAR HGB CONC 32.1 g/dl (31.0-37.0); MEAN PLATELET VOLUME 10.8 fl (7.0-11.0); RBC 4.62 10^6/uL (3.5-6.1); RED CELL DISTRIBUTION WIDTH 14.4 % (11.5-14.5); WHITE BLOOD COUNT 9.9 10^3/ul (4.5-11.0)
[2017-06-10] MEDS: Levothyroxine 100 MCG TAB PO SCH (12:08)
--- NOTE | 2017-06-10 13:45 | CP.PCM.PN ---
<Joshua Sequeira - Last Filed: 06/10/17 14:23> Subjective - Date & Time of Evaluation Date of Evaluation: 06/10/17 Time of Evaluation: 07:20 - Subjective Subjective: Medicine progress note for Dr. Destinee Morgna Hospitalist Service Patient seen and examined. Patient states that she has a pulsatile pain in the right side of her mid thoracic paraspinal regions. Per patient, she has a history of pinched nerve in the area which sometimes causes a flare up of this pulsatile type pain. Patient reports that she continues to cough but denies chest pain and dyspnea at this time. Objective - Vital Signs/Intake and Output Vital Signs (last 24 hours): Temp Pulse Resp BP Pulse Ox 98.3 F 69 19 135/79 99 06/10/17 07:00 06/10/17 07:00 06/10/17 07:00 06/10/17 10:21 06/10/17 07:00 Intake and Output: 06/10/17 06/10/17 06:59 18:59 Intake Total 340 Output Total 200 Balance 140 - Medications Medications: Current Medications Acetaminophen (Tylenol 325mg Tab) 650 mg PO Q4 PRN PRN Reason: Fever >100.4 F Last Admin: 06/10/17 06:22 Dose: 650 mg Alprazolam (Xanax) 0.25 mg PO BID PRN; Protocol PRN Reason: Anxiety Stop: 06/13/17 15:48 Last Admin: 06/07/17 06:57 Dose: 0.25 mg Arformoterol Tartrate (Brovana) 15 mcg IH [id number] [facility] Last Admin: 06/10/17 07:54 Dose: 15 mcg Aspirin (Ecotrin) 81 mg PO DAILY [facility] Last Admin: 06/10/17 10:59 Dose: 81 mg Atorvastatin Calcium (Lipitor) 10 mg PO DIN [facility] Last Admin: 06/09/17 17:34 Dose: 10 mg Budesonide (Pulmicort Respules) 1 mg IH [id number] [facility] Last Admin: 06/10/17 07:54 Dose: 1 mg Cholecalciferol (Vitamin D) 1,000 intlu PO DAILY [facility] Last Admin: 06/10/17 10:20 Dose: 1,000 intlu Clopidogrel Bisulfate (Plavix) 75 mg PO DAILY [facility] Docusate Sodium (Colace) 100 mg PO BID [facility] Last Admin: 06/10/17 10:22 Dose: 100 mg Enoxaparin Sodium (Lovenox) 40 mg SC DAILY [facility] PRN Reason: Protocol Stop: 06/10/17 23:59 Last Admin: 06/10/17 10:23 Dose: 40 mg Furosemide (Lasix) 40 mg PO DAILY [facility] Last Admin: 06/10/17 10:21 Dose: 40 mg Guaifenesin/Dextromethorphan (Robitussin Dm) 5 ml PO Q4H PRN PRN Reason: Cough Last Admin: 06/09/17 00:17 Dose: 5 ml Cefepime HCl (Maxipime 1gm) 1 gm in 100 mls @ 100 mls/hr IVPB Q12 GRET[facility] PRN Reason: Protocol Last Admin: 06/10/17 10:24 Dose: 100 mls/hr Sodium Chloride (Sodium Chloride 0.9%) 1,000 mls @ 50 mls/hr IV .Q20H [facility] Stop: 06/11/17 23:59 Lactic Acid (Lac-Hydrin 12% Cream (140 G)) 0 ea TOP BID [facility] Last Admin: 06/10/17 10:23 Dose: Not Given Levalbuterol HCl (Xopenex) 0.63 mg IH [id number] [facility] Last Admin: 06/10/17 13:27 Dose: 0.63 mg Levalbuterol HCl (Xopenex) 0.63 mg IH Q2 PRN PRN Reason: Shortness of Breath Levothyroxine Sodium (Synthroid) 100 mcg PO DAILY [facility] Last Admin: 06/10/17 12:08 Dose: 100 mcg Methylprednisolone (Solu-Medrol) 40 mg IVP DAILY [facility] Last Admin: 06/10/17 10:24 Dose: 40 mg Metoprolol Tartrate (Lopressor) 25 mg PO QPM [facility] Last Admin: 06/09/17 17:32 Dose: 25 mg Metoprolol Tartrate (Lopressor) 25 mg PO .AM [facility] Montelukast Sodium (Singulair) 10 mg PO HS [facility] Last Admin: 06/09/17 21:18 Dose: 10 mg Pantoprazole Sodium (Protonix Ec Tab) 40 mg PO 0600 [facility] Last Admin: 06/10/17 05:06 Dose: 40 mg Polyethylene Glycol (Miralax) 17 gm PO DAILY [facility] Last Admin: 06/10/17 10:19 Dose: 17 gm Potassium Chloride (K-Dur 20 Meq Er Tab) 20 meq PO BRKDIN [facility] Last Admin: 06/10/17 10:19 Dose: 20 meq Tramadol HCl (Ultram) 50 mg PO TID PRN PRN Reason: Pain, moderate (4-7) - Labs Labs: 06/10/17 10:34 06/10/17 10:34 PT 11.6 SECONDS (9.4-12.5) 06/06/17 13:00 INR 1.01 (0.93-1.08) 06/06/17 13:00 APTT 35.0 Seconds (25.1-36.5) 06/06/17 13:00 - Constitutional Appears: No Acute Distress, Chronically Ill - Head Exam Head Exam: ATRAUMATIC, NORMOCEPHALIC - Eye Exam Eye Exam: EOMI, Normal appearance - ENT Exam ENT Exam: Mucous Membranes Moist - Respiratory Exam Respiratory Exam: Decreased Breath Sounds, NORMAL BREATHING PATTERN. absent: Rales, Rhonchi, Wheezes - Cardiovascular Exam Cardiovascular Exam: REGULAR RHYTHM, +S1, +S2 - GI/Abdominal Exam GI & Abdominal Exam: Soft, Normal Bowel Sounds. absent: Distended, Guarding, Tenderness - Extremities Exam Extremities Exam: Pedal Edema (non pitting bilaterally) - Neurological Exam Neurological Exam: Alert, Awake, Oriented x3 - Psychiatric Exam Psychiatric exam: Anxious - Skin Skin Exam: Dry, Warm Assessment and Plan - Assessment and Plan (Free Text) Plan: 76 F with a PMHx of COPD on home 02, CHF, hypertension, rheumatic fever as a child w/ heart disease sequela, hyperlipidemia, hypothyroidism, GERD, depression , gout, colonic polyps s/p multiple polypectomies and arrhythmia (unclear if Afib or not) s/p pacemaker who presents with 4 days of weakness, shortness of breath, and productive cough likely 2/2 COPD exacerbation. Despite history of CHF, BNP is not elevated, no crackles heard on exam, and CXR is unremarkable making CHF exacerbation less likely. Troponin I negative and EKG showed paced rhythm. Flu was negative. 1. Dyspnea and cough 2/2 COPD exacerbation - Levalbuterol GRETEL and PRN - cont Brovana, Singulair and Pulmicort - Robitussin PRN - solu-medrol 40mg IVP daily - keep head of bed elevated - strict I/O - CPAP HS - Pulmonology consulted, recs appreciated - Cardiology consulted, recs appreciated - procalcitonin low 2. History of CHF - cont home Lasix - strict I/O - baseline Echo done outpatient with Dr. Solomon - Cardio consulted, recs appreciated - Echo 06/09/17: LVEF 60-65%. Aortic sclerosis versus mild aortic stenosis per report. - Stress test 06/09/17: Partially reversible, distal anterior and apical defects suspicious of ischemia. Portion of the defects could be due to breast attenuation. - Planned for cardiac catheterization tomorrow morning 3. Hypokalemia likely secondary to diuretic use - continue K-Dur daily - supplement as needed - continue to monitor 4. History of Hypertension - continue to monitor 5. History of Hyperlipidemia - Lipitor 6. History of arrhythmia - continue Lopressor home dose 25mg PO AMHS 7. History of Hypothyroidism - continue synthroid 8. Back pain - History of pinched nerve per patient with intermittent flare ups - Percocet 1 tab given - Continue with Tramadol prn 9. Prophylaxis - Protonix for GI Prophylaxis - Lovenox (held after today's dose for cath tomorrow) for DVT Prophylaxis Disposition: Cardiac catherization tomorrow given. Patient was seen, examined and discussed with attending, Dr. Destinee Morgan <Destinee Morgan - Last Filed: 06/11/17 18:43> Objective - Vital Signs/Intake and Output Vital Signs (last 24 hours): Temp Pulse Resp BP Pulse Ox 97.7 F 63 18 100/60 94 L 06/11/17 12:14 06/11/17 15:00 06/11/17 15:00 06/11/17 15:00 06/11/17 07:00 Intake and Output: 06/11/17 06/11/17 06:59 18:59 Intake Total 420 Balance 420 - Labs Labs: 06/11/17 10:00 06/11/17 10:00 PT 11.6 SECONDS (9.4-12.5) 06/06/17 13:00 INR 1.01 (0.93-1.08) 06/06/17 13:00 APTT 35.0 Seconds (25.1-36.5) 06/06/17 13:00 Attending/Attestation - Attestation I have personally seen and examined this patient.: Yes I have fully participated in the care of the patient.: Yes I have reviewed all pertinent clinical information, including history, physical exam and plan: Yes Notes (Text): I have seen and examined the patient with the resident at the bedside. Agree with the above note with the following additions/ exceptions: Briefly this is 76 year old female with history of COPD on home oxygen, CHF secondary to diastolic dysfunction, HTN, PPM, dyslipidemia, hypothyroidism, depression, gout , colonic polyps who presented with cough, dyspnea, chest pain and found to have COPD exacerbation. Continue oxygen, DuoNeb and IV Solu-Medrol. Procal is low. Antibiotics were stopped. Discussed with wheel aligner. Leg swelling has improved. Continue lasix. Patient's stress test revealed partially reversible defect suspicious for ischemia. Patient is scheduled for cardiac cath tomorrow. Today she complains of acute on chronic back pain and is requesting percocet which was ordered. PT cleared the patient to go home. Upon discharge patient will follow up with Dr Solomon and Dr Rogers. Dr Destinee Morgan
--- NOTE | 2017-06-10 15:19 | PN ---
DATE: 06/10/2017 REASON FOR THE CONSULTATION: Shortness of breath, chest pain, status post pacemaker, abnormal stress test, COPD. SUBJECTIVE: The patient denies any chest pain, shortness of breath still there, denies any palpitation. OBJECTIVE: GENERAL: Not in apparent distress. VITAL SIGNS: Temperature afebrile, heart rate 69, blood pressure 135/79. HEENT: PERRLA. Extraocular muscles intact. NECK: Supple. No carotid bruits or thyromegaly. CHEST: Clear to auscultation. HEART: S1 and S2, regular. ABDOMEN: Soft. EXTREMITIES: Clubbing and cyanosis negative. LABORATORY DATA: Blood workup as follows: WBC 10.8, hemoglobin 12.6, hematocrit 39.3, and platelet count 171. Chemistry showed sodium 141, potassium 4.5, chloride 100, carbon dioxide 32, anion gap of 14. BUN 31, creatinine 0.9. A stress test showed abnormal myocardial perfusion study, partially reversible distal anterior apical defect, suspicious ischemia, portion of this could be secondary to diastolic dysfunction, normal gated wall motion. In comparison with last study dated 09/14/2014, the defect appears larger, more prominent in the current study. Ejection fraction reported 72% by SPECT myocardial perfusion study. Patient had echocardiography on 06/09/2017, that is yesterday that showed ejection fraction of 55%, mild aortic stenosis with aortic sclerosis, mild to moderate mitral regurgitation, mild tricuspid regurgitation, RV systolic pressure 35. IMPRESSION: Abnormal stress test, rule out coronary artery disease, chronic obstructive pulmonary disease exacerbation, status post pacemaker, last interrogation pacemaker, pacemaker life is 2 years end of the battery. RECOMMENDATIONS: We will schedule a cardiac catheter tomorrow, keep n.p.o. after 12:00 midnight. We will start Plavix load 300 mg now to start and 75 daily and keep n.p.o. after 12:00 midnight first for cardiac catheterization tomorrow. Discussed with the patient. Patient agreed and will proceed. We will discontinue Lovenox after 2 days' doses. We will start hydration tonight at 7:00 p.m. to prevent contrast-induced nephropathy. Thank you, Dr. Mo for providing us the opportunity in taking care of the patient, Cinthya Kimball. Jefferson Levine MD
[2017-06-10] MEDS ORDERED: Sodium Chloride 0.9% 1,000 ML IV SCH (19:00)
[2017-06-11] MEDS: Levalbuterol 0.63 MG/3 ML Inhal Soln UD IH SCH ×2 (01:32→07:53)
[2017-06-11] MEDS: Pantoprazole 40 mg EC Tab PO SCH (06:08)
[2017-06-11] MEDS ORDERED: Lidocaine 2% Inj (20ml) ONE ×2 (07:00→08:26)
[2017-06-11] MEDS ORDERED: Phenylephrine 10 mg/ml Inj ONE (07:01)
[2017-06-11] MEDS ORDERED: Iodixanol 320 MG/ML 200 ML BOTTLE IV ONE (07:02)
[2017-06-11] MEDS ORDERED: Iohexol 350mgl/ml 50 ML ONE (07:02)
[2017-06-11] MEDS ORDERED: Midazolam 2 MG/2 ML VIAL ONE ×2 (07:02→08:47)
[2017-06-11] MEDS ORDERED: Nitroglycerin 50mg in D5W 50 MG/250 ML BOTTLE IV ONE (07:02)
[2017-06-11] MEDS ORDERED: Iodixanol 320 MG/ML 100 ML BOTTLE IV ONE (07:02)
[2017-06-11] MEDS ORDERED: HEPARIN SODIUM/NS 2,000 ML IV ONE (07:02)
[2017-06-11 07:57] VITALS: O2SAT 94
[2017-06-11] MEDS: Budesonide 0.5 mg/2 ml Inhal Susp UD IH SCH (08:00)
[2017-06-11] MEDS: Arformoterol 15 mcg/2 ml Inh Sol IH SCH (08:00)
[2017-06-11] MEDS ORDERED: Sodium Chloride 0.9% 1,000 ML IV SCH (09:00)
[2017-06-11 10:16] LABS: HEMOGLOBIN 12.4 g/dL (12.0-16.0); MEAN CELL VOLUME 96.6 fl (80.0-105.0); MEAN CORPUSCULAR HEMOGLOBIN 30.5 pg (25.0-35.0); MEAN CORPUSCULAR HGB CONC 31.6 g/dl (31.0-37.0); MEAN PLATELET VOLUME 10.5 fl (7.0-11.0); RBC 4.07 10^6/uL (3.5-6.1); RED CELL DISTRIBUTION WIDTH 14.5 % (11.5-14.5); WHITE BLOOD COUNT 6.6 10^3/ul (4.5-11.0)
[2017-06-11] MEDS: Potassium Chloride 20 mEq ER Tab PO SCH (10:22)
[2017-06-11] MEDS: Levothyroxine 100 MCG TAB PO SCH (10:22)
[2017-06-11 10:28] LABS: ALB/GLOB RATIO 1.3 (1.1-1.8); ALBUMIN 3.2 g/dL (3.0-4.8); ALT/SGPT 45 U/L (7-56); AST/SGOT 32 U/L (14-36); BLOOD UREA NITROGEN 21 mg/dL (7-21); CALCIUM 9.6 mg/dL (8.4-10.5); GFR AFRICAN-AMERICAN > 60; GFR NON-AFRICAN AMERICAN > 60
[2017-06-11 10:42] VITALS: RESP 18
[2017-06-11] MEDS: Ammonium Lactate 12% Cream (140 g) TOP SCH (11:44)
[2017-06-11 12:15] VITALS: TEMP 97.7
--- NOTE | 2017-06-11 12:17 | CP.PCM.DIS ---
<Joshua Sequeira S - Last Filed: 06/11/17 17:11> Provider - Provider Date of Admission: 06/06/17 14:58 Attending physician: Destinee Morgan MD Primary care physician: Jefferson Solomon MD Consults: Cardiology: Dr. Solomon Pulmonology: Dr. Rogers Time Spent in preparation of Discharge (in minutes): 45 Diagnosis - Discharge Diagnosis (1) COPD exacerbation Status: Acute Priority: High (2) History of hypertension Status: Chronic Priority: Medium (3) History of hypothyroidism Status: Chronic Priority: Medium (4) History of hyperlipidemia Status: Chronic Priority: Medium Hospital Course - Lab Results Lab Results: Most Recent Lab Values WBC 6.6 10^3/ul (4.5-11.0) D 06/11/17 10:00 RBC 4.07 10^6/uL (3.5-6.1) 06/11/17 10:00 Hgb 12.4 g/dL (12.0-16.0) 06/11/17 10:00 Hct 39.3 % (36.0-48.0) 06/11/17 10:00 MCV 96.6 fl (80.0-105.0) 06/11/17 10:00 MCH 30.5 pg (25.0-35.0) 06/11/17 10:00 MCHC 31.6 g/dl (31.0-37.0) 06/11/17 10:00 RDW 14.5 % (11.5-14.5) 06/11/17 10:00 Plt Count 157 10^3/uL (120.0-450.0) 06/11/17 10:00 MPV 10.5 fl (7.0-11.0) 06/11/17 10:00 Gran % 67.0 % (50.0-68.0) 06/06/17 13:00 Lymph % (Auto) 24.7 % (22.0-35.0) 06/06/17 13:00 [place] % (Auto) 7.3 % (1.0-6.0) H 06/06/17 13:00 Eos % (Auto) 0.9 % (1.5-5.0) L 06/06/17 13:00 Baso % (Auto) 0.1 % (0.0-3.0) 06/06/17 13:00 Gran # 6.68 (1.4-6.5) H 06/06/17 13:00 Lymph # (Auto) 2.5 (1.2-3.4) 06/06/17 13:00 [place] # (Auto) 0.7 (0.1-0.6) H 06/06/17 13:00 Eos # (Auto) 0.1 (0.0-0.7) 06/06/17 13:00 Baso # (Auto) 0.01 K/mm3 (0.0-2.0) 06/06/17 13:00 PT 11.6 SECONDS (9.4-12.5) 06/06/17 13:00 INR 1.01 (0.93-1.08) 06/06/17 13:00 APTT 35.0 Seconds (25.1-36.5) 06/06/17 13:00 pCO2 49 mm/Hg (35-45) H 06/06/17 15:20 pO2 54.0 mm/Hg (80-100) L 06/06/17 15:20 HCO3 34.8 mmol/L (21-28) H 06/06/17 15:20 ABG pH 7.46 (7.35-7.45) H 06/06/17 15:20 ABG Total CO2 36.3 mmol.L (22-28) H 06/06/17 15:20 ABG O2 Saturation 94.1 % (95-98) L 06/06/17 15:20 ABG O2 Content 18.5 ML/dl (15-23) 06/06/17 15:20 ABG Base Excess 9.3 mmol/L (-2.0-3.0) H 06/06/17 15:20 ABG Hemoglobin 14.5 g/dL (11.7-17.4) 06/06/17 15:20 ABG Carboxyhemoglobin 2.3 % (0.5-1.5) H 06/06/17 15:20 POC ABG HHb (Measured) 5.7 % (0-5) H 06/06/17 15:20 ABG Methemoglobin 1.2 % (0.0-3.0) 06/06/17 15:20 ABG O2 Capacity 19.7 mL/dl (16-24) 06/06/17 15:20 Hgb O2 Saturation 90.8 % (95.0-98.0) L 06/06/17 15:20 FiO2 21.0 % 06/06/17 15:20 Sodium 144 mmol/L (132-148) 06/11/17 10:00 Potassium 4.6 mmol/L (3.6-5.0) 06/11/17 10:00 Chloride 103 mmol/L (98-107) 06/11/17 10:00 Carbon Dioxide 34 mmol/L (21-33) H 06/11/17 10:00 Anion Gap 11 (10-20) 06/11/17 10:00 BUN 21 mg/dL (7-21) 06/11/17 10:00 Creatinine 0.8 mg/dl (0.7-1.2) 06/11/17 10:00 Est GFR ( Amer) > 60 06/11/17 10:00 Est GFR (Non-Af Amer) > 60 06/11/17 10:00 Random Glucose 89 mg/dL (70-110) 06/11/17 10:00 Calcium 9.6 mg/dL (8.4-10.5) 06/11/17 10:00 Magnesium 1.9 mg/dL (1.7-2.2) 06/06/17 13:00 Total Bilirubin 0.5 mg/dL (0.2-1.3) 06/11/17 10:00 AST 32 U/L (14-36) 06/11/17 10:00 ALT 45 U/L (7-56) 06/11/17 10:00 Alkaline Phosphatase 61 U/L (38-126) 06/11/17 10:00 Lactate Dehydrogenase 508 U/L (333-699) 06/06/17 13:00 Total Creatine Kinase 40 U/L (35-230) 06/06/17 13:00 Troponin I < 0.01 ng/mL 06/06/17 13:00 NT-Pro-B Natriuret Pep 146 pg/mL (0-450) 06/06/17 13:00 Total Protein 5.8 g/dL (5.8-8.3) 06/11/17 10:00 Albumin 3.2 g/dL (3.0-4.8) 06/11/17 10:00 Globulin 2.5 gm/dL 06/11/17 10:00 Albumin/Globulin Ratio 1.3 (1.1-1.8) 06/11/17 10:00 Procalcitonin < 0.05 NG/ML (0.19-0.49) L 06/09/17 12:00 Urine Color Yellow (YELLOW) 06/06/17 13:00 Urine Appearance Clear (CLEAR) 06/06/17 13:00 Urine pH 6.5 (4.7-8.0) 06/06/17 13:00 Ur Specific [place] 1.010 (1.005-1.035) 06/06/17 13:00 Urine Protein Negative mg/dL (<30 mg/dL) 06/06/17 13:00 Urine Glucose (UA) Negative mg/dL (NEGATIVE) 06/06/17 13:00 Urine Ketones Negative mg/dL (NEGATIVE) 06/06/17 13:00 Urine Blood Negative (NEGATIVE) 06/06/17 13:00 Urine Nitrate Negative (NEGATIVE) 06/06/17 13:00 Urine Bilirubin Negative (NEGATIVE) 06/06/17 13:00 Urine Urobilinogen 0.2 E.U./dL (<1 E.U./dL) 06/06/17 13:00 Ur Leukocyte Esterase Negative Monica/uL (NEGATIVE) 06/06/17 13:00 Influenza Typ A,B (EIA) Negative for flu a/b (NEGATIVE) 06/06/17 13:00 - Hospital Course Hospital Course: Initial History of Present Illness on 06/06/17: "Ms. Kimball is a 76 yo female with a PMH of COPD, CHF, hypertension, arrhythmia (unclear if Afib or not) s/p pacemaker, rheumatic fever as a child w/ heart disease sequela, hyperlipidemia, hypothyroidism, GERD, depression, gout, and colonic polyps s/p multiple polypectomies who presents with a productive cough, shortness of breath and pleuritic chest pain x4 days. Patient was recently discharge for similar symptoms from [facility] [place] and followed up with Dr. Solomon who split her metolazone dose in half to 2.5 once weekly. Patient also went to see Dr. Chua today who suggested for her to come in to ED. Patient states that she has also been wheezing with her cough but that the treatments she received in the ED have given her relief. She is compliant with her medications at home, and uses CPAP at night. Patient denies headaches, changes in vision/ hearing, abdominal pain, weakness, numbness/tingling, n/v/d, fevers/chills. 12- pt ROS was reviewed and is otherwise unremarkable." Hospital Course: Patient admitted for shortness of breath due to COPD exacerbation. Due to recent hospitalization, patient empirically treated for healthcare associated pneumonia and completed course of antibiotics. Cultures negative and procalcitonin low. Patient has chronic dyspnea and is on home oxygen. Patient had an echocardiogram (LVEF 60-65% with normal left ventricular function) and a stress test (partially reversible, distal anterior and apical defects suspicious of ischemia) both on 06/09/17. Patient underwent cardiac catheterization on 06/11/17 and was stable for discharge from cardiology perspective. Cardiology recommends outpatient follow up. Patient also stable for discharge from pulmonary perspective. This is a summary of the hospital course. For more information, refer to the medical records. Discharge Exam - Head Exam Head Exam: ATRAUMATIC, NORMOCEPHALIC - Eye Exam Eye Exam: EOMI, Normal appearance - ENT Exam ENT Exam: Mucous Membranes Moist - Respiratory Exam Respiratory Exam: Decreased Breath Sounds, Clear to PA & Lateral. absent: Rales , Rhonchi, Wheezes - Cardiovascular Exam Cardiovascular Exam: REGULAR RHYTHM, +S1, +S2 - GI/Abdominal Exam GI & Abdominal Exam: Normal Bowel Sounds, Soft. absent: Tenderness - Extremities Exam Extremities exam: pedal edema, pedal pulses present - Neurological Exam Neurological exam: Alert, CN II-XII Intact, Oriented x3 - Psychiatric Exam Psychiatric exam: Normal Affect, Normal Mood - Skin Skin Exam: Dry, Warm Discharge Plan - Discharge Medications Prescriptions: Furosemide [Lasix] 40 mg PO DAILY #30 tablet predniSONE [predniSONE Tab] See Taper PO DAILY #19 tab - Follow Up Plan Condition: STABLE Disposition: HOME/ ROUTINE Instructions: Heart Failure (DC), Chest Pain (ED), COPD (Chronic Obstructive Pulmonary Disease) (DC), Cholesterol and Your Health (GEN) Additional Instructions: 1. Take Prednisone Taper as directed. 2. Follow up with Dr. Solomon next week. If symptoms worsen, please go to the nearest emergency room. Referrals: Jefferson Solomon MD [Primary Care Provider] - <Destinee Morgan - Last Filed: 06/11/17 18:45> Provider - Provider Date of Admission: 06/06/17 14:58 Attending physician: Destinee Morgan MD Primary care physician: Jefferson Solomon MD Hospital Course - Lab Results Lab Results: Most Recent Lab Values WBC 6.6 10^3/ul (4.5-11.0) D 06/11/17 10:00 RBC 4.07 10^6/uL (3.5-6.1) 06/11/17 10:00 Hgb 12.4 g/dL (12.0-16.0) 06/11/17 10:00 Hct 39.3 % (36.0-48.0) 06/11/17 10:00 MCV 96.6 fl (80.0-105.0) 06/11/17 10:00 MCH 30.5 pg (25.0-35.0) 06/11/17 10:00 MCHC 31.6 g/dl (31.0-37.0) 06/11/17 10:00 RDW 14.5 % (11.5-14.5) 06/11/17 10:00 Plt Count 157 10^3/uL (120.0-450.0) 06/11/17 10:00 MPV 10.5 fl (7.0-11.0) 06/11/17 10:00 Gran % 67.0 % (50.0-68.0) 06/06/17 13:00 Lymph % (Auto) 24.7 % (22.0-35.0) 06/06/17 13:00 [place] % (Auto) 7.3 % (1.0-6.0) H 06/06/17 13:00 Eos % (Auto) 0.9 % (1.5-5.0) L 06/06/17 13:00 Baso % (Auto) 0.1 % (0.0-3.0) 06/06/17 13:00 Gran # 6.68 (1.4-6.5) H 06/06/17 13:00 Lymph # (Auto) 2.5 (1.2-3.4) 06/06/17 13:00 [place] # (Auto) 0.7 (0.1-0.6) H 06/06/17 13:00 Eos # (Auto) 0.1 (0.0-0.7) 06/06/17 13:00 Baso # (Auto) 0.01 K/mm3 (0.0-2.0) 06/06/17 13:00 PT 11.6 SECONDS (9.4-12.5) 06/06/17 13:00 INR 1.01 (0.93-1.08) 06/06/17 13:00 APTT 35.0 Seconds (25.1-36.5) 06/06/17 13:00 pCO2 49 mm/Hg (35-45) H 06/06/17 15:20 pO2 54.0 mm/Hg (80-100) L 06/06/17 15:20 HCO3 34.8 mmol/L (21-28) H 06/06/17 15:20 ABG pH 7.46 (7.35-7.45) H 06/06/17 15:20 ABG Total CO2 36.3 mmol.L (22-28) H 06/06/17 15:20 ABG O2 Saturation 94.1 % (95-98) L 06/06/17 15:20 ABG O2 Content 18.5 ML/dl (15-23) 06/06/17 15:20 ABG Base Excess 9.3 mmol/L (-2.0-3.0) H 06/06/17 15:20 ABG Hemoglobin 14.5 g/dL (11.7-17.4) 06/06/17 15:20 ABG Carboxyhemoglobin 2.3 % (0.5-1.5) H 06/06/17 15:20 POC ABG HHb (Measured) 5.7 % (0-5) H 06/06/17 15:20 ABG Methemoglobin 1.2 % (0.0-3.0) 06/06/17 15:20 ABG O2 Capacity 19.7 mL/dl (16-24) 06/06/17 15:20 Hgb O2 Saturation 90.8 % (95.0-98.0) L 06/06/17 15:20 FiO2 21.0 % 06/06/17 15:20 Sodium 144 mmol/L (132-148) 06/11/17 10:00 Potassium 4.6 mmol/L (3.6-5.0) 06/11/17 10:00 Chloride 103 mmol/L (98-107) 06/11/17 10:00 Carbon Dioxide 34 mmol/L (21-33) H 06/11/17 10:00 Anion Gap 11 (10-20) 06/11/17 10:00 BUN 21 mg/dL (7-21) 06/11/17 10:00 Creatinine 0.8 mg/dl (0.7-1.2) 06/11/17 10:00 Est GFR ( Amer) > 60 06/11/17 10:00 Est GFR (Non-Af Amer) > 60 06/11/17 10:00 Random Glucose 89 mg/dL (70-110) 06/11/17 10:00 Calcium 9.6 mg/dL (8.4-10.5) 06/11/17 10:00 Magnesium 1.9 mg/dL (1.7-2.2) 06/06/17 13:00 Total Bilirubin 0.5 mg/dL (0.2-1.3) 06/11/17 10:00 AST 32 U/L (14-36) 06/11/17 10:00 ALT 45 U/L (7-56) 06/11/17 10:00 Alkaline Phosphatase 61 U/L (38-126) 06/11/17 10:00 Lactate Dehydrogenase 508 U/L (333-699) 06/06/17 13:00 Total Creatine Kinase 40 U/L (35-230) 06/06/17 13:00 Troponin I < 0.01 ng/mL 06/06/17 13:00 NT-Pro-B Natriuret Pep 146 pg/mL (0-450) 06/06/17 13:00 Total Protein 5.8 g/dL (5.8-8.3) 06/11/17 10:00 Albumin 3.2 g/dL (3.0-4.8) 06/11/17 10:00 Globulin 2.5 gm/dL 06/11/17 10:00 Albumin/Globulin Ratio 1.3 (1.1-1.8) 06/11/17 10:00 Procalcitonin < 0.05 NG/ML (0.19-0.49) L 06/09/17 12:00 Urine Color Yellow (YELLOW) 06/06/17 13:00 Urine Appearance Clear (CLEAR) 06/06/17 13:00 Urine pH 6.5 (4.7-8.0) 06/06/17 13:00 Ur Specific [place] 1.010 (1.005-1.035) 06/06/17 13:00 Urine Protein Negative mg/dL (<30 mg/dL) 06/06/17 13:00 Urine Glucose (UA) Negative mg/dL (NEGATIVE) 06/06/17 13:00 Urine Ketones Negative mg/dL (NEGATIVE) 06/06/17 13:00 Urine Blood Negative (NEGATIVE) 06/06/17 13:00 Urine Nitrate Negative (NEGATIVE) 06/06/17 13:00 Urine Bilirubin Negative (NEGATIVE) 06/06/17 13:00 Urine Urobilinogen 0.2 E.U./dL (<1 E.U./dL) 06/06/17 13:00 Ur Leukocyte Esterase Negative Monica/uL (NEGATIVE) 06/06/17 13:00 Influenza Typ A,B (EIA) Negative for flu a/b (NEGATIVE) 06/06/17 13:00 Attending/Attestation - Attestation I have personally seen and examined this patient.: Yes I have fully participated in the care of the patient.: Yes I have reviewed all pertinent clinical information, including history, physical exam and plan: Yes Notes (Text): I have seen and examined the patient with the resident at the bedside. Agree with the above note with the following additions/ exceptions: Briefly this is 76 year old female with history of COPD on home oxygen, CHF secondary to diastolic dysfunction, HTN, PPM, dyslipidemia, hypothyroidism, depression, gout , colonic polyps who presented with cough, dyspnea, chest pain and found to have COPD exacerbation. Continue oxygen, DuoNeb and IV Solu-Medrol. Procal is low. Antibiotics were stopped. Discussed with contract clerk. Leg swelling has improved. Continue lasix. Patient's stress test revealed partially reversible defect suspicious for ischemia therefore she underwent cardiac cath which revealed normal coronaries. Patient denies chest pain, CHOW, nausea, vomiting, abdominal or groin pain. PT cleared the patient to go home. Upon discharge patient will follow up with Dr Solomon and Dr Rogers. Dr Destinee Morgan
--- NOTE | 2017-06-11 12:25 | PN ---
DATE: 06/11/2017 PULMONARY NOTE SUBJECTIVE: The patient appears very comfortable this morning. She is not short of breath at rest. PHYSICAL EXAMINATION VITAL SIGNS: Temperature is 97.8, pulse is 73, respirations 18/20, blood pressure 160/71. Oxygen saturation on room air is 94%-98%. HEENT: Normocephalic, atraumatic. No JVD. CARDIOVASCULAR: Systolic ejection murmur at the lower left sternal border. No S3 gallop. LUNGS: Clear bilaterally. EXTREMITIES: Mild edema. No cyanosis, no clubbing. Calves are nontender to palpation. GI: Abdomen is soft, nontender and nondistended. Bowel sounds are positive. SKIN: No acute rash. NEUROLOGIC: Limited at the present time. IMPRESSION: 1. Recurrent bronchitis. 2. Chronic obstructive pulmonary disease. 3. Cardiac arrhythmias. 4. Hypertension. PLAN: The patient appears very comfortable this morning. She is not short of breath at rest. She does state to feeling much better overall. On physical exam, her lungs are now clear. Oxygen saturation on room air is 94%-98%. I will continue the current nebulizer treatments and change to oral steroids this morning. Cardiology evaluation is ongoing. The patient is for cardiac catheterization later this morning. Pulmonary status of the patient is significantly improved overall. Hopefully, she will be discharged in the near future. If/when discharged, the patient is well aware that she needs to follow up with me in the office. I will discuss the above with the attending physician. Giovanni Rogers MD MTDD
[2017-06-11] MEDS: POLYETHYLENE GLYCOL 3350 17 GM/Dose PACKET PO SCH ×2 (12:30→12:43)
[2017-06-11] MEDS: Cholecalciferol 1,000 INTLU TAB PO SCH (12:30)
--- NOTE | 2017-06-11 14:52 | PN ---
DATE: 06/11/2017 REASON FOR CONSULTATION: Shortness of breath, chest pain, abnormal stress test, COPD. SUBJECTIVE: The patient denies chest pain, shortness of breath, or any palpitation. OBJECTIVE: GENERAL: Not in any apparent distress. VITAL SIGNS: Temperature afebrile, heart rate is 76, blood pressure 160/71. HEENT: PERRLA, intact. NECK: Supple. No carotid bruit. No thyromegaly. CHEST: Clear to auscultation. HEART: S1 and S2, regular. ABDOMEN: Soft. EXTREMITIES: Clubbing and cyanosis negative. LABORATORY DATA: WBC 9.9, hemoglobin 14.2, hematocrit 43.9, platelet count 192. Chemistry shows sodium 140, potassium 1.02 , chloride 99, carbon dioxide 20, anion gap of 18. BUN 20, creatinine 0.9. IMPRESSION: Abnormal stress test, chronic obstructive pulmonary disease exacerbation. The patient had echocardiography done that shows ejection fraction of 55%, mild aortic sclerosis, mild aortic stenosis, flof-[id number] mitral regurgitation, mild tricuspid regurgitation, right ventricular systolic pressure 35. Stress test was abnormal showing abnormal stress test suggestive of ischemia, ejection fraction 72%. The patient underwent cardiac catheterization that revealed normal coronaries, preserved left ventricular function, ejection fraction 60% to 65%, in the range of 25-30. Right heart catheterization revealed right atrium 16, right ventricle 49/15, pulmonary artery 40/27, mean of 32, pulmonary capital wedge pressure 24, cardiac output 3.79, cardiac index 1.93, pulmonary vascular resistance Wood units. Normal coronaries, mild pulmonary hypertension, obesity, ex-tobacco abuse, chronic obstructive pulmonary disease. Recommend aggressive medical treatment. We will continue aspirin. Continue Lasix. Discontinue Plavix. Aggressive treatment of COPD. Supplement electrolytes. IV fluid. Continue Synthroid. Possible discharge. Thank you Dr. Morgan for providing us the opportunity in taking care of the patient, Cinthya Kimball. Jefferson Levine MD
[2017-06-11 15:06] VITALS: PULSE 63
[2017-06-11 15:10] VITALS: BP 100/60
--- NOTE | 2017-06-11 16:51 | CARD ---
APPROVED REPORT Procedure(s) performed: Complete Heart Catheterization HISTORY The patient is a 76 year-old female with a history of : most recent EF: 72%. (EF Method: RADIONUCLIDE), previous CHF, chronic lung disease, tobacco history() : The patient is a former smoker , hypertension , dyslipidemia . INDICATION The indication(s) include : positive stress test. CASE TECHNIQUE The patient was brought electively to the Cardiac Catheterization Laboratory in a fasting state and was prepped and draped in a sterile manner. The right femoral groin was infiltrated with 2% Lidocaine subcutaneous anesthesia. A sheath was inserted into the right femoral artery without difficulty. Coronary angiography was performed using coronary diagnostic catheters. The left coronary system was accessed and visualized with a Diagnostic ,5 Fr JL 4 catheter. The right coronary system was accessed and visualized with a Diagnostic ,6Fr JESS catheter. The left ventricle was accessed and visualized with a 6 Fr AL 1 catheter. Left ventriculogram was performed in LI projection. A Right Heart Catheterization was performed with a 7 Fr. [place]-Kateryna catheter and pressure were recorded. A 7 sheath was inserted into the right femoral vein without difficulty. Coronary angiography was performed using coronary diagnostic catheters. Cardiac outputs were obtained by the Thermal Dilution method. Closure device was deployed with a 6 Fr / 7 Fr MynxGrip without any complications. The patient tolerated the procedure well and there were no complications associated with the procedure. Vessel Analysis The patient's coronary anatomy is right dominant. The left main coronary artery is a large size vessel with diffuse calcification noted throughout this vessel and without significant stenosis. The left main bifurcates to the left anterior descending and circumflex. The left anterior descending artery is a large size vessel with diffuse calcification noted throughout this vessel and without significant stenosis. The first diagonal branch is a medium size vessel with diffuse calcification noted throughout this vessel and without significant stenosis. The circumflex artery is a large size vessel with diffuse calcification noted throughout this vessel and without significant stenosis. The first obtuse marginal branch is a large size vessel with diffuse calcification noted throughout this vessel and without significant stenosis. The right coronary artery is a large size vessel with diffuse calcification noted throughout this vessel and without significant stenosis. The right posterolateral branch is a medium size vessel with diffuse calcification noted throughout this vessel and without significant stenosis. Left Ventricle The left ventricle is normal in size with normal contractility. There was no cardiomyopathy. The left ventricular ejection fraction is estimated to be 60-65%. The left ventricular end diastolic pressure is 25-30 mmHg. There was no gradient across the aortic valve upon pullback. Right Heart Cath Findings The Right Atrial Pressure is 16 mmHg. The Right Ventricular Pressure is 44/15 mmHg. The Pulmonary Artery Pressure is 41/27 mmHg. with a mean of 32 The Pulmonary Catheter Wedge Pressure is 24 mmHg. PVR 2.1 Wood units. The Cardiac Output is 3.75 L/min. The Cardiac index is 1.90 L/min/m2. Conclusion Normal coronaries Preserved LV FX. EF=60-65%, EDP-25-30 mmof hg. RHC-RA-16,RV-44/15,PA 40/27 with a mean of 32 PCW-24, CO-3.75,CI-1.9, PVR-2.1 Camacho unit Recommendations Smoking Cessation Cardiac Rehabilitation Referral Aggressive Medical TherapyCardiac Risk Reduction Program Weight Loss Reduction Program add low dose diuretics. CC: dr. Solomon.
== END 2017-06-11 16:40 | disposition home or self-care (01) | DRG 191 ==
LOC: ED 12:07 → ERH 14:58 → 3RSO 20:54 → 5RSO 06-10 06:16 → 2RSO 06-11 09:05
PROVIDERS: ADMIT Internal Medicine; ATTEND Hospitalist
PROC: 4A023N8 Measurement of Cardiac Sampling and Pressure, Bilateral, Percutaneous Approach (ICD-10-PCS; principal; 2017-06-11)
PROC: B2111ZZ Fluoroscopy of Multiple Coronary Arteries using Low Osmolar Contrast (ICD-10-PCS; 2017-06-11)
PROC: B2161ZZ Fluoroscopy of Right and Left Heart using Low Osmolar Contrast (ICD-10-PCS; 2017-06-11)
DX: J44.1 Chronic obstructive pulmonary disease with (acute) exacerbation (principal); E87.2 Acidosis; I27.20 Pulmonary hypertension, unspecified; I50.32 Chronic diastolic (congestive) heart failure; I11.0 Hypertensive heart disease with heart failure; E03.9 Hypothyroidism, unspecified; E66.9 Obesity, unspecified; E78.00 Pure hypercholesterolemia, unspecified; E78.5 Hyperlipidemia, unspecified; E87.6 Hypokalemia; F32.89 Other specified depressive episodes; I08.3 Combined rheumatic disorders of mitral, aortic and tricuspid valves; I25.10 Atherosclerotic heart disease of native coronary artery without angina pectoris; I48.91 Unspecified atrial fibrillation; I70.0 Atherosclerosis of aorta; K21.9 Gastro-esophageal reflux disease without esophagitis; K63.5 Polyp of colon; M10.9 Gout, unspecified; R09.02 Hypoxemia; T50.2X5A Adverse effect of carbonic-anhydrase inhibitors, benzothiadiazides and other diuretics, initial encounter; Z79.82 Long term (current) use of aspirin; Z86.010 Personal history of colon polyps; Z87.891 Personal history of nicotine dependence; Z90.49 Acquired absence of other specified parts of digestive tract; Z95.0 Presence of cardiac pacemaker; Z99.81 Dependence on supplemental oxygen; Z88.1 Allergy status to other antibiotic agents; Z87.892 Personal history of anaphylaxis; R94.39 Abnormal result of other cardiovascular function study

== ENCOUNTER 2017-07-23 08:35 | Emergency (ER) | payer MEDICARE, OTHER ==
[2017-07-23 08:35] VITALS: BMI 34.3
[2017-07-23] MEDS ORDERED: Albuterol-Ipratrop 3 mg / 0.5 (3 ml) UD IH STA (09:06)
[2017-07-23] MEDS ORDERED: Sodium Chloride 0.9% 1,000 ML IV SCH (09:15)
--- NOTE | 2017-07-23 09:15 | ED PDOC ---
Arrival/HPI - General Time Seen by Provider: 07/23/17 08:50 Historian: Patient, Family - History of Present Illness Narrative History of Present Illness (Text): you were treated in the ED today for hx of rheumatic fever as a child, COPD, CHF , HTN, arrythmia s/p PPM, HL, GERD, Depression, Gout, Hypothyroid, with nausea, abdomen cramping, and mild blood in stool, but with secondary sob/chest pain which is similar to prior but then feels somewhat more pronounced with the abdomen pain and otherwise without any vomiting/headache/dizziness/numbness/ tingling/loss of limb function/pain with urination. 07/23/17 09:10 Time/Duration: 1 week Symptom Onset: Gradual Symptom Course: Unchanged Quality: Aching Severity Level: 1 Activities at Onset: Rest Context: Sitting Past Medical History - Provider Review Nursing Documentation Reviewed: Yes - Travel History Have you recently traveled outside [place] w/in the past 3 mons?: No - Infectious Disease Hx of Infectious Diseases: None - Tetanus Immunization Tetanus Immunization: Unknown - Cardiac Hx Congestive Heart Failure: Yes Hx Hypertension: Yes Hx Pacemaker: Yes - Pulmonary Hx Chronic Obstructive Pulmonary Disease (COPD): Yes - Neurological Hx Neurological Disorder: No - HEENT Hx HEENT Disorder: No - Renal Hx Renal Disorder: No - Endocrine/Metabolic Hx Hypothyroidism: Yes - Hematological/Oncological Hx Blood Disorders: No - Integumentary Hx Dermatological Disorder: No - Musculoskeletal/Rheumatological Hx Musculoskeletal Disorders: Yes (Pinched nerve to left shoulder) Hx Falls: No Hx Unsteady Gait: (uses cane) - Gastrointestinal Hx Gastrointestinal Disorders: Yes Hx Gastroesophageal Reflux: Yes Other/Comment: multiple colon polyps s/p colonoscopies and removal - Genitourinary/Gynecological Hx Genitourinary Disorders: No - Psychiatric Hx Psychophysiologic Disorder: Yes Hx Anxiety: Yes Hx Depression: Yes Hx Substance Use: No - Surgical History Hx Orthopedic Surgery: Yes (Right knee sx) - Anesthesia Hx Anesthesia: Yes - Suicidal Assessment Feels Threatened In Home Enviroment: No Family/Social History - Physician Review Nursing Documentation Reviewed: Yes Family/Social History: No Known Family HX Smoking Status: Former Smoker Hx Alcohol Use: No Hx Substance Use: No Allergies/Home Meds Allergies/Adverse Reactions: Allergies levofloxacin [From Levaquin] Allergy (Severe, Verified 07/23/17 08:58) ANAPHYLAXIS Home Medications: Home Meds Medication Instructions Recorded Confirmed Aspirin [Ecotrin] 81 mg PO DAILY 09/01/15 07/23/17 Atorvastatin [Lipitor] 10 mg PO DIN 09/01/15 07/23/17 Cholecalciferol (Vitamin D3) 1,000 iu PO DAILY 09/01/15 07/23/17 [Vitamin D3] Esomeprazole Magnesium [Nexium] 40 mg PO DAILY 09/01/15 07/23/17 Levothyroxine [Synthroid] 100 mcg PO DAILY 09/01/15 07/23/17 Metoprolol Tartrate 50 mg PO QAM 09/01/15 07/23/17 Metoprolol Tartrate [Lopressor] 25 mg PO QPM 09/01/15 07/23/17 Fluticasone/Salmeterol 500/50 1 inh INH BID 04/10/16 07/23/17 [Advair Diskus 500/50] Potassium Chloride [K-Tab ER] 20 meq PO BID 06/06/17 07/23/17 Furosemide [Lasix] 40 mg PO BID 07/23/17 07/23/17 Review of Systems - Review of Systems Constitutional: Normal Eyes: Normal ENT: Normal Respiratory: SOB Cardiovascular: Chest Pain Gastrointestinal: Abdominal Pain Genitourinary Female: Normal Musculoskeletal: Normal Skin: Normal Neurological: Normal Endocrine: Normal Hemo/Lymphatic: Normal Psychiatric: Normal Physical Exam Vital Signs Reviewed: Yes Vital Signs Temp Pulse Resp BP Pulse Ox 07/23/17 12:54 72 18 110/60 98 07/23/17 11:16 71 18 106/57 L 98 07/23/17 08:58 80 19 135/62 99 07/23/17 08:57 98.1 F 86 16 135/62 98 Temperature: Afebrile Blood Pressure: Hypertensive Pulse: Regular Respiratory Rate: Normal Appearance: Positive for: Well-Appearing, Non-Toxic, Comfortable Pain Distress: None Mental Status: Positive for: Alert and Oriented X 3 - Systems Exam Head: Present: Atraumatic, Normocephalic Pupils: Present: PERRL Extroacular Muscles: Present: EOMI Conjunctiva: Present: Normal Ears: Present: Normal Mouth: Present: Moist Mucous Membranes Pharnyx: Present: Normal Nose (External): Present: Atraumatic Nose (Internal): Present: Normal Inspection Neck: Present: Normal Range of Motion Respiratory/Chest: Present: Clear to Auscultation, Good Air Exchange Cardiovascular: Present: Regular Rate and Rhythm Abdomen: No: Tenderness, Distention, Normal Bowel Sounds, Peritoneal Signs, Rebound, Guarding, McBurney's Point Tender, Rovsing's Sign Present, Hernias, Feeding Tubes, Ostomy Tubes, Mass/Organomegaly, Scars, Other Rectal: Present: Occult Blood (positive, no gross blood. nurse orellana) Back: Present: Normal Inspection Upper Extremity: Present: Normal Inspection Lower Extremity: Present: Normal Inspection Neurological: Present: GCS=15, CN II-XII Intact, Speech Normal, Motor Func Grossly Intact Skin: Present: Warm, Normal Color Psychiatric: Present: Alert, Oriented x 3, Normal Insight, Normal Concentration Medical Decision Making ED Course and Treatment: you were treated in the ED today for hx of rheumatic fever as a child, COPD, CHF , HTN, arrythmia s/p PPM, HL, GERD, Depression, Gout, Hypothyroid, with nausea, abdomen cramping, and mild blood in stool, but with secondary sob/chest pain which is similar to prior but then feels somewhat more pronounced with the abdomen pain and otherwise without any vomiting/headache/dizziness/numbness/ tingling/loss of limb function/pain with urination. You were otherwise breathing easily, smiling and talking with your daughter, good strength/ sensation, walking easily, clear lungs, no abdomen tenderness, rectal exam with female nurse orellana no gross blood but guaic positive, no fever temp 98.1, stable heart rate 80, stable breathing rate 19, excellent oxygen level 99% room air, elevated blood pressure 135/62 which we recommend repeat in 2-3 days primary care office to determine further treatment, you have blood tests infection count 12, stable blood level hemoglobin 13/platelets 210, stable chemistry sodium normal, potassium mildly low 3.3 replaced, bicarbonate 39 mildy high and fluids given, chloride 91 mildly low fluids given, glucose midly high 151, magnesium mildly low 1.6 replaced, heart blood test negative less than 0.01, bnp 186 within normal limits, radiology chest xray no active disease , ct abdomen/pelvis severe diverticulosis with minimal inflammatory changes consistent with mild diverticulitis and signs of gastritis, ECG sinus rhythm, intravenous fluids gentle hydration, zofran, tylenol, duoneb, observation done in the ED with improvement and had along discussion with you regarding staying in the hospital but you wanted to go home and cautioned for complications and discussed with Dr. Neha Paulino who stated you had longstanding chest pain/ difficulty breathing and he will followup with you and for you to call his office to schedule an appointment for the next day or two to review your symptoms/further care, counselled to drink fluids and advance diet as tolerated and thus discharged home with daughter. 1. Recommend flagyl/bactrim as directed for infection control. 2. Recommend zofran as directed for nausea. recommend tylenol as directed for pain. 3. Recommend follow-up primary care 2-3 days to review symptoms, repeat potassium/magnesium levels to ensure improvement, referral to endocrine for blood sugar improvement, referral to gastroenterology clinic for ct findings of diverticulosis/diverticulitis/gastritis to ensure no complications/cancer development. 4. If any worsening pain, fever, chills, nausea, vomiting, difficulty breathing, numbness, loss of limb function, pain with urination or any medical condition then return to the ED. 07/23/17 09:15 07/23/2017 09:36 Chest X-ray IMPRESSION: No active disease. Dictator: Herrera Cordova MD 07/23/2017 11:14 Abd/Pelvis CT IMPRESSION: Severe diverticulosis of the sigmoid colon. There are minimal inflammatory changes seen consistent with mild diverticulitis. There is sever thickening of the gastric wall consistent with gastritis. This was also present on the previous exam. Dictator: Herrera Cordova MD 07/23/17 11:53 07/23/17 13:31 07/23/17 13:33 Reassessment Condition: Re-examined, Improved - Lab Interpretations Lab Results: 07/23/17 09:10 07/23/17 09:10 Lab Results 07/23/17 09:10: PT 13.0 H, INR 1.13 H, APTT 32.6 07/23/17 09:10: Sodium 141, Potassium 3.3 L, Chloride 91 L, Carbon Dioxide 39 H , Anion Gap 14, BUN 17, Creatinine 0.8, Est GFR ( Amer) > 60, Est GFR ( Non-Af Amer) > 60, Random Glucose 151 H, Calcium 10.3, Magnesium 1.6 L, Total Bilirubin 1.3, AST 26, ALT 25, Alkaline Phosphatase 92, Lactate Dehydrogenase 429, Total Creatine Kinase 75, Troponin I < 0.01, NT-Pro-B Natriuret Pep 186, Total Protein 7.6, Albumin 4.1, Globulin 3.5, Albumin/Globulin Ratio 1.2 07/23/17 09:10: WBC 12.1 H D, RBC 4.44, Hgb 13.9, Hct 40.5, MCV 91.2 D, MCH 31.3, MCHC 34.3, RDW 14.1, Plt Count 210, MPV 10.2, Gran % 76.8 H, Lymph % (Auto ) 11.4 L, Cook % (Auto) 11.4 H, Eos % (Auto) 0.3 L, Baso % (Auto) 0.1, Gran # 9.26 H, Lymph # (Auto) 1.4, Cook # (Auto) 1.4 H, Eos # (Auto) 0.0, Baso # (Auto ) 0.01 I have reviewed the lab results: Yes - RAD Interpretation Radiology Orders: 07/23/17 09:04 CHEST PORTABLE [RAD] Stat 07/23/17 09:59 ABDOMEN & PELVIS [ABD & PELVIS IV CONTRAST ONLY] [CT] Stat - Medication Orders Current Medication Orders: Sodium Chloride (Sodium Chloride 0.9%) 1,000 mls @ 100 mls/hr IV .Q10H GRETEL Last Admin: 07/23/17 09:16 Dose: 100 mls/hr eMAR Start Stop Document 07/23/17 09:16 [facility] (Rec: 07/23/17 09:16 [facility] [id number]) Intravenous Solution Start Date 07/23/17 Start Time 09:16 Discontinued Medications Acetaminophen (Tylenol 325mg Tab) 975 mg PO STAT STA Stop: 07/23/17 09:10 Last Admin: 07/23/17 09:15 Dose: 975 mg MAR Pain/Vitals Document 07/23/17 09:15 [facility] (Rec: 07/23/17 09:16 [facility] [id number]) Pain Reassessment Is This A Pain ReAssessment? No Sleep Is patient sleeping during reassessment? No Presence of Pain Presence of Pain Yes Pain Scale Used Pain Scale Used Numeric Location Left, Right or Bilateral Bilateral Upper or Lower Lower Pain Location Body Site Abdomen Description Sharp Intensity 8 Scale Used Numeric Albuterol/Ipratropium (Duoneb 3 Mg/0.5 Mg (3 Ml) Ud) 3 ml IH STAT STA Stop: 07/23/17 09:07 Last Admin: 07/23/17 09:15 Dose: 3 ml Amoxicillin/Clavulanate Potassium (Augmentin 875 Mg-125 Mg Tab) 1 tab PO STAT STA PRN Reason: Protocol Stop: 07/23/17 12:23 Aspirin (Aspirin) 325 mg PO STAT STA Stop: 07/23/17 09:04 Last Admin: 07/23/17 09:15 Dose: 325 mg Magnesium Sulfate/Dextrose (Magnesium Sulfate 1 Gm/100 Ml D5w) 1 gm in 100 mls @ 100 mls/hr IVPB ONCE ONE Stop: 07/23/17 10:58 Last Admin: 07/23/17 10:28 Dose: 100 mls/hr eMAR Start Stop Document 07/23/17 10:28 LM (Rec: 07/23/17 10:28 [facility] [place] [id number]) Intravenous Solution Start Date 07/23/17 Start Time 10:28 End Date 07/23/17 End time 11:30 Total Infusion Time 62 Ondansetron HCl (Zofran Inj) 4 mg IVP STAT STA Stop: 07/23/17 09:10 Last Admin: 07/23/17 09:15 Dose: 4 mg IVP Administration Document 07/23/17 09:15 LM (Rec: 07/23/17 09:15 LM [id number]) Charges for Administration # of IVP Administrations 1 Potassium Chloride (K-Dur 20 Meq Er Tab) 40 meq PO STAT STA Stop: 07/23/17 10:00 Last Admin: 07/23/17 10:28 Dose: 40 meq Disposition/Present on Arrival - Present on Arrival Any Indicators Present on Arrival: No History of DVT/PE: No History of Uncontrolled Diabetes: No Urinary Catheter: No History Surgical Site Infection Following: None - Disposition Have Diagnosis and Disposition been Completed?: Yes Diagnosis: Diverticulitis, COPD exacerbation Disposition: HOME/ ROUTINE Disposition Time: 13:34 Patient Plan: Discharge Patient Problems: Current Active Problems Problem Status Onset COPD exacerbation Acute Diverticulitis Acute Condition: IMPROVED Discharge Instructions (ExitCare): Chronic Obstructive Pulmonary Disease (COPD) , Including Emphysema, Diverticulitis (DC) Additional Instructions: you were treated in the ED today for hx of rheumatic fever as a child, COPD, CHF , HTN, arrythmia s/p PPM, HL, GERD, Depression, Gout, Hypothyroid, with nausea, abdomen cramping, and mild blood in stool, but with secondary sob/chest pain which is similar to prior but then feels somewhat more pronounced with the abdomen pain and otherwise without any vomiting/headache/dizziness/numbness/ tingling/loss of limb function/pain with urination. You were otherwise breathing easily, smiling and talking with your daughter, good strength/ sensation, walking easily, clear lungs, no abdomen tenderness, rectal exam with female nurse orellana no gross blood but guaic positive, no fever temp 98.1, stable heart rate 80, stable breathing rate 19, excellent oxygen level 99% room air, elevated blood pressure 135/62 which we recommend repeat in 2-3 days primary care office to determine further treatment, you have blood tests infection count 12, stable blood level hemoglobin 13/platelets 210, stable chemistry sodium normal, potassium mildly low 3.3 replaced, bicarbonate 39 mildy high and fluids given, chloride 91 mildly low fluids given, glucose midly high 151, magnesium mildly low 1.6 replaced, heart blood test negative less than 0.01, bnp 186 within normal limits, radiology chest xray no active disease , ct abdomen/pelvis severe diverticulosis with minimal inflammatory changes consistent with mild diverticulitis and signs of gastritis, ECG sinus rhythm, intravenous fluids gentle hydration, zofran, tylenol, duoneb, observation done in the ED with improvement and had along discussion with you regarding staying in the hospital but you wanted to go home and cautioned for complications and discussed with Dr. Neha Paulino who stated you had longstanding chest pain/ difficulty breathing and he will followup with you and for you to call his office to schedule an appointment for the next day or two to review your symptoms/further care, counselled to drink fluids and advance diet as tolerated and thus discharged home with daughter. 1. Recommend flagyl/bactrim as directed for infection control. 2. Recommend zofran as directed for nausea. recommend tylenol as directed for pain. 3. Recommend follow-up primary care 2-3 days to review symptoms, repeat potassium/magnesium levels to ensure improvement, referral to endocrine for blood sugar improvement, referral to gastroenterology clinic for ct findings of diverticulosis/diverticulitis/gastritis to ensure no complications/cancer development. 4. If any worsening pain, fever, chills, nausea, vomiting, difficulty breathing, numbness, loss of limb function, pain with urination or any medical condition then return to the ED. Prescriptions: Metronidazole [Flagyl] 500 mg PO Q8 10 Days #30 tablet Ondansetron ODT [Zofran ODT] 4 mg PO Q8 PRN 5 Days #20 odt PRN Reason: Nausea/Vomiting Sulfamethoxazole/Trimethoprim [Bactrim Ds Tablet] 1 each PO Q12 10 Days #20 tablet
[2017-07-23 09:16] LABS: BASO # 0.01 K/mm3 (0.0-2.0); BASO % 0.1 % (0.0-3.0); EOS % 0.3 % (1.5-5.0); GRAN # 9.26 (1.4-6.5); GRAN % 76.8 % (50.0-68.0); HEMOGLOBIN 13.9 g/dL (12.0-16.0); LYMPH # 1.4 (1.2-3.4); LYMPH % 11.4 % (22.0-35.0); MEAN CELL VOLUME 91.2 fl (80.0-105.0); MEAN CORPUSCULAR HEMOGLOBIN 31.3 pg (25.0-35.0); MEAN CORPUSCULAR HGB CONC 34.3 g/dl (31.0-37.0); MEAN PLATELET VOLUME 10.2 fl (7.0-11.0); MONO # 1.4 (0.1-0.6); MONO % 11.4 % (1.0-6.0); RBC 4.44 10^6/uL (3.5-6.1); RED CELL DISTRIBUTION WIDTH 14.1 % (11.5-14.5); WHITE BLOOD COUNT 12.1 10^3/ul (4.5-11.0)
[2017-07-23 09:30] LABS: INR 1.13 (0.93-1.08); PARTIAL THROMBOPLASTIN TIME 32.6 Seconds (25.1-36.5)
[2017-07-23 09:34] LABS: ALB/GLOB RATIO 1.2 (1.1-1.8); ALBUMIN 4.1 g/dL (3.0-4.8); ALT/SGPT 25 U/L (7-56); AST/SGOT 26 U/L (14-36); BLOOD UREA NITROGEN 17 mg/dL (7-21); CALCIUM 10.3 mg/dL (8.4-10.5); GFR AFRICAN-AMERICAN > 60; GFR NON-AFRICAN AMERICAN > 60
--- NOTE | 2017-07-23 09:38 | RAD ---
HISTORY: 77yoF COPD, sob/chest pain COMPARISON: 06/06/2017 FINDINGS: LUNGS: No active pulmonary disease. PLEURA: No significant pleural effusion identified, no pneumothorax apparent. CARDIOVASCULAR: Normal. OSSEOUS STRUCTURES: No significant abnormalities. VISUALIZED UPPER ABDOMEN: Normal. OTHER FINDINGS: Dual lead pacemaker IMPRESSION: No active disease.
[2017-07-23 09:39] LABS: B-TYPE NATRIURETIC PEPTIDE 186 pg/mL (0-450); TROPONIN I < 0.01 ng/mL
[2017-07-23] MEDS ORDERED: Magnesium Sulfate 1 gm in D5W 1 GM/100 ML BAG IVPB ONE (09:59)
[2017-07-23] MEDS ORDERED: Potassium Chloride 20 mEq ER Tab PO STA (09:59)
[2017-07-23] MEDS ORDERED: Iohexol 350 MG/100 ML VIAL ONE (10:03)
--- NOTE | 2017-07-23 11:15 | CT ---
PROCEDURE: CT Abdomen and Pelvis with contrast HISTORY: 77yoF, abdomen pain COMPARISON: 07/19/2015 TECHNIQUE: Contrast dose: 100 cc of Omni 350 Radiation dose: Total exam DLP = 942 mGy-cm. This CT exam was performed using one or more of the following dose reduction techniques: Automated exposure control, adjustment of the mA and/or kV according to patient size, and/or use of iterative reconstruction technique. FINDINGS: LOWER THORAX: Unremarkable. LIVER: Unremarkable. No gross lesion or ductal dilatation. GALLBLADDER AND BILE DUCTS: Gallbladder removed PANCREAS: Unremarkable. No gross lesion or ductal dilatation. SPLEEN: Unremarkable. ADRENALS: Unremarkable. No mass. KIDNEYS AND URETERS: Unremarkable. No hydronephrosis. No solid mass. VASCULATURE: Unremarkable. No aortic aneurysm. BOWEL: Severe diverticulosis of the sigmoid colon. There are minimal inflammatory changes seen consistent with mild diverticulitis. Severe gastric wall thickening. This is chronic. Findings suspicious for gastritis APPENDIX: Normal appendix. PERITONEUM: Unremarkable. No free fluid. No free air. LYMPH NODES: Unremarkable. No enlarged lymph nodes. BLADDER: Unremarkable. REPRODUCTIVE: Unremarkable. BONES: No acute fracture. OTHER FINDINGS: None. IMPRESSION: Severe diverticulosis of the sigmoid colon. There are minimal inflammatory changes seen consistent with mild diverticulitis. There is severe thickening of the gastric wall consistent with gastritis. This was also present on the previous exam.
[2017-07-23 11:17] VITALS: O2SAT 98
[2017-07-23] MEDS ORDERED: Amoxicillin-Clav 875-125 mg Tab PO STA (12:22)
[2017-07-23 13:56] VITALS: BP 116/72; PULSE 70; RESP 16; TEMP 98
--- NOTE | 2017-07-23 19:27 | CARD ---
APPROVED REPORT EKG Measurement Heart [id number] ND 220P71 [id number] <Conclusion> Sinus rhythm with 1st degree AV block Possible Right ventricular hypertrophy Nonspecific ST and T wave abnormality Abnormal ECG
== END 2017-07-23 15:19 | disposition home or self-care (01) ==
LOC: ED 08:35
DX: J44.1 Chronic obstructive pulmonary disease with (acute) exacerbation (principal); K57.92 Diverticulitis of intestine, part unspecified, without perforation or abscess without bleeding; I10 Essential (primary) hypertension; E03.9 Hypothyroidism, unspecified; I50.9 Heart failure, unspecified; Z87.891 Personal history of nicotine dependence
CPT/HCPCS: 71045; 74177; 80053; 82550; 83615; 83735; 83880; 84484; 85025; 85610; 85730; 93005; 96365; 96375; 99284; J2405; J3475; J7040; Q9967

== ENCOUNTER 2017-09-08 06:11 | Inpatient (IN) | payer MEDICARE, OTHER ==
[2017-09-08 06:12] VITALS: BMI 34.3
[2017-09-08] MEDS ORDERED: Albuterol-Ipratrop 3 mg / 0.5 (3 ml) UD ONE (06:44)
--- NOTE | 2017-09-08 06:49 | ED PDOC ---
Arrival/HPI - General Chief Complaint: Shortness Of Breath Time Seen by Provider: 09/08/17 06:24 Historian: Patient - History of Present Illness Narrative History of Present Illness (Text): 09/08/17 06:46 77yoF, htn, hl, copd, chf, having sob with generalized weakness. Time/Duration: 24 hours Symptom Onset: Gradual Symptom Course: Unchanged Quality: Other (no pain) Activities at Onset: Rest Context: Sitting Past Medical History - Provider Review Nursing Documentation Reviewed: Yes - Travel History Have you recently traveled outside [place] w/in the past 3 mons?: No - Infectious Disease Hx of Infectious Diseases: None - Tetanus Immunization Tetanus Immunization: Unknown - Cardiac Hx Cardiac Arrhythmia: Yes (afib) - Pulmonary Hx Chronic Obstructive Pulmonary Disease (COPD): Yes - Neurological Hx Neurological Disorder: No - HEENT Hx HEENT Disorder: No - Renal Hx Renal Disorder: No - Endocrine/Metabolic Hx Endocrine Disorders: Yes - Hematological/Oncological Hx Blood Disorders: No - Integumentary Hx Dermatological Disorder: No - Musculoskeletal/Rheumatological Hx Musculoskeletal Disorders: Yes (Pinched nerve to left shoulder) Hx Unsteady Gait: (uses cane) - Gastrointestinal Hx Gastrointestinal Disorders: Yes Hx Gastroesophageal Reflux: Yes Other/Comment: multiple colon polyps s/p colonoscopies and removal - Genitourinary/Gynecological Hx Genitourinary Disorders: No - Psychiatric Hx Psychophysiologic Disorder: Yes Hx Anxiety: Yes Hx Depression: Yes Hx Substance Use: No - Surgical History Hx Orthopedic Surgery: Yes (Right knee sx) Hx Tonsillectomy: Yes - Anesthesia Hx Anesthesia: Yes - Suicidal Assessment Feels Threatened In Home Enviroment: No Family/Social History - Physician Review Nursing Documentation Reviewed: Yes Family/Social History: No Known Family HX Smoking Status: Former Smoker Hx Alcohol Use: No Hx Substance Use: No Allergies/Home Meds Allergies/Adverse Reactions: Allergies levofloxacin [From Levaquin] Allergy (Severe, Verified 09/08/17 06:13) ANAPHYLAXIS Home Medications: Home Meds Medication Instructions Recorded Confirmed Aspirin [Ecotrin] 81 mg PO DAILY 09/01/15 09/08/17 Atorvastatin [Lipitor] 10 mg PO DIN 09/01/15 09/08/17 Cholecalciferol (Vitamin D3) 1,000 iu PO DAILY 09/01/15 09/08/17 [Vitamin D3] Esomeprazole Magnesium [Nexium] 40 mg PO DAILY 09/01/15 09/08/17 Levothyroxine [Synthroid] 100 mcg PO DAILY 09/01/15 09/08/17 Metoprolol Tartrate 50 mg PO QAM 09/01/15 09/08/17 Metoprolol Tartrate [Lopressor] 25 mg PO QPM 09/01/15 09/08/17 Fluticasone/Salmeterol 500/50 1 inh INH BID 04/10/16 09/08/17 [Advair Diskus 500/50] Potassium Chloride [K-Tab ER] 20 meq PO BID 06/06/17 09/08/17 Furosemide [Lasix] 40 mg PO BID 07/23/17 09/08/17 Review of Systems - Review of Systems Constitutional: Fatigue Eyes: Normal ENT: Normal Respiratory: SOB, Cough Cardiovascular: Normal Gastrointestinal: Normal Genitourinary Female: Normal Musculoskeletal: Normal Skin: Normal Neurological: Normal Endocrine: Normal Hemo/Lymphatic: Normal Psychiatric: Normal Physical Exam Vital Signs Reviewed: Yes Vital Signs Temp Pulse Resp BP Pulse Ox 09/08/17 06:27 97.9 F 87 22 124/50 L 100 09/08/17 06:17 18 98 Temperature: Afebrile Blood Pressure: Hypertensive Pulse: Regular Respiratory Rate: Normal Appearance: Positive for: Well-Appearing, Non-Toxic, Comfortable Pain Distress: None Mental Status: Positive for: Alert and Oriented X 3 - Systems Exam Head: Present: Atraumatic, Normocephalic Pupils: Present: PERRL Extroacular Muscles: Present: EOMI Conjunctiva: Present: Normal Ears: Present: Normal Mouth: Present: Moist Mucous Membranes Pharnyx: Present: Normal Nose (External): Present: Atraumatic Nose (Internal): Present: Normal Inspection Neck: Present: Normal Range of Motion Respiratory/Chest: Present: Clear to Auscultation, Good Air Exchange Cardiovascular: Present: Regular Rate and Rhythm Abdomen: No: Tenderness, Distention, Normal Bowel Sounds, Peritoneal Signs, Rebound, Guarding, McBurney's Point Tender, Rovsing's Sign Present, Hernias, Feeding Tubes, Ostomy Tubes, Mass/Organomegaly, Scars, Other Back: Present: Normal Inspection Upper Extremity: Present: Normal Inspection Lower Extremity: Present: Edema Neurological: Present: GCS=15, CN II-XII Intact, Speech Normal, Motor Func Grossly Intact Skin: Present: Warm, Normal Color Psychiatric: Present: Alert, Oriented x 3, Normal Insight, Normal Concentration Medical Decision Making ED Course and Treatment: 77yoF, htn, hl, copd, chf, having sob with generalized weakness. ECG: NSR wbc 12.5 hb 14 trop less than 0.01 bnp 153 lactic acid 1.[address] Inman to fu labs, radiology ct head no acute cxr mild vascular markings dw Dr. Mo for admission for copd exacerbation, solumedrol, duoneb. no sign of infection at this time and will hold of on antibiotics. Reassessment Condition: Re-examined, Improved - Lab Interpretations Lab Results: 09/08/17 06:55 09/08/17 06:55 Lab Results 09/08/17 06:55: pO2 48, VBG pH 7.34, VBG pCO2 64.0 H, VBG HCO3 34.5 H, VBG Total CO2 36.5 H, VBG O2 Sat (Calc) 85.7 H, VBG Base Excess 6.5 H, VBG Potassium 3.9, Sodium 134.0, Chloride 93.0 L, Glucose 143 H, Lactate 1.8, FiO2 21.0, Venous Blood Potassium 3.9 09/08/17 06:55: PT 11.4, INR 0.99, APTT 22.9 L 09/08/17 06:55: Sodium 140, Chloride 93 L, Potassium 3.7, Carbon Dioxide 32, Anion Gap 19, BUN 30 H, Creatinine 0.9, Est GFR ( Amer) > 60, Est GFR ( Non-Af Amer) > 60, Random Glucose 141 H, Calcium 10.1, Magnesium 1.5 L, Total Bilirubin 0.9, AST 33, ALT 30, Alkaline Phosphatase 112, Lactate Dehydrogenase 454, Total Creatine Kinase 53, Troponin I < 0.01, NT-Pro-B Natriuret Pep 153, Total Protein 8.2, Albumin 4.6, Globulin 3.5, Albumin/Globulin Ratio 1.3 09/08/17 06:55: WBC 12.5 H, RBC 4.53, Hgb 14.3, Hct 41.6, MCV 91.8, MCH 31.6, MCHC 34.4, RDW 14.2, Plt Count 190, MPV 10.1, Gran % 88.1 H, Lymph % (Auto) 5.8 L, [place] % (Auto) 5.8, Eos % (Auto) 0.2 L, Baso % (Auto) 0.1, Gran # 11.00 H, Lymph # (Auto) 0.7 L, [place] # (Auto) 0.7 H, Eos # (Auto) 0.0, Baso # (Auto) 0.01 I have reviewed the lab results: Yes - RAD Interpretation Radiology Orders: 09/08/17 06:43 CHEST PORTABLE [RAD] Stat 09/08/17 06:44 HEAD W/O CONTRAST [CT] Stat 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: ED Physician (cxr mild vascular markings) - EKG Interpretation Interpreted by ED Physician: Yes (NSR, flipped t waves avr, avl, v1, v2, v3.) Type: 12 lead EKG - Medication Orders Current Medication Orders: Discontinued Medications Albuterol/Ipratropium (Duoneb 3 Mg/0.5 Mg (3 Ml) Ud) 3 ml IH STAT STA Stop: 09/08/17 07:05 Last Admin: 09/08/17 07:04 Dose: 3 ml Methylprednisolone (Solu-Medrol) 125 mg IVP STAT STA Stop: 09/08/17 07:05 Last Admin: 09/08/17 07:10 Dose: 125 mg IVP Administration Document 09/08/17 07:10 RG (Rec: 09/08/17 07:10 [id number]) Charges for Administration # of IVP Administrations 1 Disposition/Present on Arrival - Present on Arrival Any Indicators Present on Arrival: No History of DVT/PE: No History of Uncontrolled Diabetes: No Urinary Catheter: No History of Decub. Ulcer: No History Surgical Site Infection Following: None - Disposition Have Diagnosis and Disposition been Completed?: Yes Diagnosis: COPD exacerbation Disposition: HOSPITALIZED Disposition Time: 08:10 Patient Plan: Admission, Telemetry Condition: IMPROVED Forms: [employer] ([place])
[2017-09-08] MEDS ORDERED: Albuterol-Ipratrop 3 mg / 0.5 (3 ml) UD IH STA (07:04)
[2017-09-08 07:11] LABS: BASO # 0.01 K/mm3 (0.0-2.0); BASO % 0.1 % (0.0-3.0); EOS % 0.2 % (1.5-5.0); GRAN % 88.1 % (50.0-68.0); HEMOGLOBIN 14.3 g/dL (12.0-16.0); LYMPH # 0.7 (1.2-3.4); LYMPH % 5.8 % (22.0-35.0); MEAN CELL VOLUME 91.8 fl (80.0-105.0); MEAN CORPUSCULAR HEMOGLOBIN 31.6 pg (25.0-35.0); MEAN CORPUSCULAR HGB CONC 34.4 g/dl (31.0-37.0); MEAN PLATELET VOLUME 10.1 fl (7.0-11.0); MONO # 0.7 (0.1-0.6); MONO % 5.8 % (1.0-6.0); RBC 4.53 10^6/uL (3.5-6.1); RED CELL DISTRIBUTION WIDTH 14.2 % (11.5-14.5); WHITE BLOOD COUNT 12.5 10^3/ul (4.5-11.0)
[2017-09-08 07:12] LABS: VENOUS BLOOD GAS BASE EXCESS 6.5 mmol/L (0.0-2.0); VENOUS BLOOD GAS PO2 48 mm/Hg (30-55); VENOUS BLOOD PH 7.34 (7.32-7.43)
[2017-09-08 07:29] LABS: ALB/GLOB RATIO 1.3 (1.1-1.8); ALBUMIN 4.6 g/dL (3.0-4.8); ALT/SGPT 30 U/L (7-56); AST/SGOT 33 U/L (14-36); BLOOD UREA NITROGEN 30 mg/dL (7-21); CALCIUM 10.1 mg/dL (8.4-10.5); GFR AFRICAN-AMERICAN > 60; GFR NON-AFRICAN AMERICAN > 60
[2017-09-08 07:35] LABS: B-TYPE NATRIURETIC PEPTIDE 153 pg/mL (0-450); TROPONIN I < 0.01 ng/mL
[2017-09-08 07:38] LABS: INR 0.99 (0.93-1.08); PARTIAL THROMBOPLASTIN TIME 22.9 Seconds (25.1-36.5); PROTHROMBIN TIME 11.4 SECONDS (9.4-12.5)
--- NOTE | 2017-09-08 07:51 | CT ---
EXAM: CT Head Without Intravenous Contrast CLINICAL HISTORY: 77 years old, female; Signs and symptoms; Other: Weakness; Additional info: 77yof with weakness TECHNIQUE: Axial computed tomography images of the head/brain without intravenous contrast. All CT scans at this facility use one or more dose reduction techniques, viz.: automated exposure control; ma/kV adjustment per patient size (including targeted exams where dose is matched to indication; i.e. head); or iterative reconstruction technique. Coronal and sagittal reformatted images were created and reviewed. COMPARISON: No relevant prior studies available. FINDINGS: Brain: There is mild ill-defined patchy hypodensity within the bilateral cerebral periventricular white matter, consistent with chronic microvascular ischemic changes. There is mild diffuse cerebral atrophy present, consistent with this patient's age. The cortical robb / white matter interfaces are preserved throughout the brain. Examination of the posterior fossa demonstrates no significant abnormality. No hemorrhage. Ventricles: The ventricular system demonstrates mild diffuse compensatory enlargement. Bones/joints: Unremarkable. No acute fracture. Soft tissues: Unremarkable. Vasculature: There is no hyperdense MCA sign. Sinuses: Unremarkable as visualized. No acute sinusitis. Mastoid air cells: Unremarkable as visualized. No mastoid effusion. IMPRESSION: No acute infarction, masses or hemorrhage is seen. No acute intracranial abnormality is identified. Diffuse age-related cerebral atrophy and mild chronic microvascular white matter ischemic changes, without evidence of an acute intracranial abnormality.
[2017-09-08] MEDS ORDERED: Magnesium Sulfate 1 gm in D5W 1 GM/100 ML BAG IVPB ONE (08:08)
--- NOTE | 2017-09-08 09:20 | RAD ---
HISTORY: 77yoF, w sob COMPARISON: 07/23/2017 FINDINGS: LUNGS: No active pulmonary disease. PLEURA: No significant pleural effusion identified, no pneumothorax apparent. CARDIOVASCULAR: Normal. OSSEOUS STRUCTURES: No significant abnormalities. VISUALIZED UPPER ABDOMEN: Normal. OTHER FINDINGS: Pacemaker IMPRESSION: No active disease.
[2017-09-08] MEDS ORDERED: Fluticasone-Salmeterol 500-50mcg Diskus INH SCH (10:00)
--- NOTE | 2017-09-08 10:27 | CARD ---
APPROVED REPORT EKG Measurement Heart [id number] VA 200P78 [id number] <Conclusion> Normal sinus rhythm Rightward axis Borderline ECG
[2017-09-08] MEDS: Cholecalciferol 1,000 INTLU TAB PO SCH (10:44)
[2017-09-08] MEDS: Levothyroxine 100 MCG TAB PO SCH (10:44)
[2017-09-08] MEDS: Albuterol-Ipratrop 3 mg / 0.5 (3 ml) UD IH SCH ×3 (11:00→20:20)
[2017-09-08] MEDS ORDERED: Albuterol-Ipratrop 3 mg / 0.5 (3 ml) UD IH PRN (11:30)
--- NOTE | 2017-09-08 11:33 | CP.PCM.HP ---
<Freedom Harper - Last Filed: 09/08/17 12:41> History of Present Illness - History of Present Illness History of Present Illness: 77 year old female with a past medical history significant for COPD (60 pack year history of smoking), pacemaker, CHF with estimated EF of 62.5% based on cardiac catheterization, atrial fibrillation, GERD, anxiety, and depression who presents with acute onset dyspnea, nausea, substernal chest pain , 3.5 days of a productive cough. She reports having generalized muscle aches as well, but denies fever, chills. She reports the sputum is whitish and yellow. She reports that her diuretic medications were recently modified. She reports the chest pain is substernal, non-radiating, and not associated or related to exertion. Otherwise, 12 point review of system is negative. PMH: COPD, CHF, atrial fibrillation, anxiety, and depression PSH: right knee surgery, pacemaker insertion Allergies: Levofloxacin Medications: Reviewed Social: Sixty pack year history of smoking, denies alcohol or illicit drug use Present on Admission - Present on Admission Any Indicators Present on Admission: No Review of Systems - Review of Systems All systems: reviewed and no additional remarkable complaints except Review of Systems: as per HPI Past Patient History - Infectious Disease Hx of Infectious Diseases: None - Tetanus Immunizations Tetanus Immunization: Unknown - Past Medical History & Family History Past Medical History?: Yes - Past Social History Smoking Status: Former Smoker - CARDIAC Hx Cardia Arrhythmia: Yes (afib) - PULMONARY Hx Chronic Obstructive Pulmonary Disease (COPD): Yes - NEUROLOGICAL Hx Neurological Disorder: No - HEENT Hx HEENT Problems: No - RENAL Hx Chronic Kidney Disease: No - ENDOCRINE/METABOLIC Hx Endocrine Disorders: Yes - HEMATOLOGICAL/ONCOLOGICAL Hx Blood Disorders: No - INTEGUMENTARY Hx Dermatological Problems: No - MUSCULOSKELETAL/RHEUMATOLOGICAL Hx Musculoskeletal Disorders: Yes (Pinched nerve to left shoulder) Hx Unsteady Gait: (uses cane) - GASTROINTESTINAL Hx Gastrointestinal Disorders: Yes Hx Gastroesophageal Reflux: Yes Other/Comment: multiple colon polyps s/p colonoscopies and removal - GENITOURINARY/GYNECOLOGICAL Hx Genitourinary Disorders: No - PSYCHIATRIC Hx Psychophysiologic Disorder: Yes Hx Anxiety: Yes Hx Depression: Yes Hx Substance Use: No - SURGICAL HISTORY Hx Orthopedic Surgery: Yes (Right knee sx) Hx Tonsillectomy: Yes - ANESTHESIA Hx Anesthesia: Yes Meds Allergies/Adverse Reactions: Allergies Allergy/AdvReac Type Severity Reaction Status Date / Time levofloxacin [From Levaquin] Allergy Severe ANAPHYLAXIS Verified 09/08/17 06:13 Physical Exam - Constitutional Appears: No Acute Distress, Older Than Stated Age - Head Exam Head Exam: ATRAUMATIC, NORMOCEPHALIC - Eye Exam Eye Exam: EOMI, Normal appearance - ENT Exam ENT Exam: Mucous Membranes Moist, Normal Oropharynx - Neck Exam Neck exam: Positive for: Normal Inspection - Respiratory Exam Respiratory Exam: Prolonged Expiratory Phase, Wheezes - Cardiovascular Exam Cardiovascular Exam: +S1, +S2 - GI/Abdominal Exam GI & Abdominal Exam: Normal Bowel Sounds, Soft - Extremities Exam Extremities exam: Negative for: calf tenderness Additional comments: chronic non-pitting lower extremity edema - Back Exam Back exam: NORMAL INSPECTION. absent: CVA tenderness (L), CVA tenderness (R) - Neurological Exam Neurological exam: Alert, CN II-XII Intact, Oriented x3 - Psychiatric Exam Psychiatric exam: Normal Affect, Normal Mood - Skin Skin Exam: Dry, Intact, Normal Color, Warm Results - Vital Signs Recent Vital Signs: Last Vital Signs Temp 98 F 09/08/17 09:57 Pulse 92 H 09/08/17 10:44 Resp 20 09/08/17 09:57 BP 141/74 09/08/17 10:44 Pulse Ox 97 09/08/17 09:57 - Labs Result Diagrams: 09/08/17 06:55 09/08/17 06:55 - EKG Data EKG Interpreted by: Myself - EKG Data When Compared to Previous EKG: No Significant Change Assessment & Plan - Assessment and Plan (Free Text) Assessment: 77 year old female with a past medical history of COPD, chronic lower extremity edema, GERD, who presents with acute onset dyspnea, chest pain, and a 3.5 day productive cough. Plan: 1) COPD exacerbation - Duonebs q4h GRETEL and q2h PRN - Solumedrol 125 mg IVP given in ED - Chest X-ray shows no infiltrate - Oxygen via NC with target SpO2 90-92% 2) Chest pain - EKG negative for ischemia - Troponin (-) x1; repeat q6h x 2 - Cardiology, Dr. Solomon consulted - Enteric coated aspirin 81 mg PO daily 3) CHF with chronic lower extremity edema - BNP low - Continue with Lasix 40 mg PO BID 4) GERD - Continue Esomeprazole 5) Anxiety - Xanax 0.25 BID 6) GI/DVT prophylaxis - Continue with Esomeprazole - Lovenox 40 mg SC - HHD diet Case reviewed and discussed with Dr. Fadia Joe - Date & Time Date: 09/08/17 Time: 12:46 <Jefferson Joe - Last Filed: 09/08/17 16:18> Results - Vital Signs Recent Vital Signs: Last Vital Signs Temp 98.4 F 09/08/17 12:09 Pulse 81 09/08/17 12:09 Resp 20 09/08/17 12:09 BP 104/55 L 09/08/17 14:07 Pulse Ox 97 09/08/17 09:57 - Labs Result Diagrams: 09/08/17 06:55 09/08/17 06:55 Labs: Laboratory Results - last 24 hr 09/08/17 11:30 Troponin I < 0.01 Attending/Attestation - Attestation I have personally seen and examined this patient.: Yes I have fully participated in the care of the patient.: Yes I have reviewed all pertinent clinical information: Yes Notes (Text): 09/08/17 16:14 Medical record note made by the resident after discussion with my direction and input after the patient was personally seen and examined by me. I have reviewed the chart and agree that the record accurately reflects by personal performance of the history, physical exam, data review, and medical decision-making, in the course for the patient. I have also personally directed the plan of care. 76 year old female with history of COPD , CHF secondary to diastolic dysfunction, HTN, PUD, dyslipidemia, hypothyroidism, depression, gout, colonic polyps who presented with cough, dyspnea, chest pain and found to have COPD exacerbation.Agreed with Neb/Steroid and antibiotics. Chest pain is likely due to Peptic ulcer disease,EKG is negative for acute ischemic changes.We will get serial troponinin and will also get cardiology consult. We will change aspirin to enteric coated ASA 81 mg po daily, Continue PPI. Management plan was discussed in detail with patient. Education was provided.
[2017-09-08] MEDS: Enoxaparin 40 mg Syringe SC SCH (11:46)
[2017-09-08] MEDS ORDERED: Potassium Chloride 20 mEq ER Tab PO STA (13:05)
--- NOTE | 2017-09-08 16:05 | CON ---
DATE: 09/08/2017 REASON FOR CONSULTATION: Shortness of breath, history of COPD, permanent pacemaker insertion, hypertension. HISTORY OF PRESENT ILLNESS: The patient is a 77-year-old female, known to have COPD, hypertension, hyperlipidemia, gastroesophageal reflux disease, status post pacemaker insertion. Admitted with a history that during the middle of the night, she started having shortness of breath. She has been having cough from the last several days. She also felt burning in the epigastric area. She states sometime she coughs and has yellow expectoration. Denies any palpitations. The patient has also noticed redness on the lower part of bilateral legs. PAST MEDICAL HISTORY: Positive for COPD, hypertension, status post permanent pacemaker insertion. She was also treated for CHF. PERSONAL HISTORY: The patient stops smoking recently. She used to smoke about a pack a day and the patient has no history of drinking alcohol or any substance abuse. ALLERGIES: THE PATIENT IS ALLERGIC TO LEVAQUIN. SHE ALSO STATES THAT WITH LIPITOR SHE GOT ACHES AND PAINS, AND CANNOT TOLERATE IT. HOME MEDICATIONS: The patient was on potassium 20 mEq p.o. b.i.d., metoprolol tartrate 25 mg in the evening and 50 mg in the morning, Synthroid 100 mcg p.o. daily, furosemide 40 b.i.d., Advair Diskus, vitamin D 1000 international units p.o. daily, Lipitor 10 mg daily, Ecotrin 81 mg daily, and Xanax 0.25 b.i.d. p.r.n. REVIEW OF SYSTEMS: All the systems reviewed, positive mentioned in the history, others were negative. PHYSICAL EXAMINATION: VITAL SIGNS: Blood pressure 104/55, earlier pressure was 141/74, and one blood pressure before that was 120/65; respirations 20; pulse 81; temperature 98.4. HEENT: Head is normocephalic. Eyes: Pupils normal. Conjunctivae normal. Nose and throat normal. NECK: JVP low. Carotids equal. THORAX: AP diameter normal. LUNGS: The patient has a few wheezing sounds. CARDIOVASCULAR: S1 and S2. ABDOMEN: Soft. He complains of slight discomfort in the epigastric area on palpation. No organomegaly. Bowel sounds normal. EXTREMITIES: The patient's lower part of both legs has redness and she has some edema on the feet. There is no clubbing, no cyanosis. LABORATORY DATA: WBC 12.5, hemoglobin 14.3, hematocrit 41.6, and platelets 190. Sodium 140, potassium 3.7. BUN 30, creatinine 0.9. Troponin x2 less than 0.01. Total protein and albumin normal. AST and ALT normal. Magnesium is 1.5. Random glucose 141. Calcium 10.1. Chest x-ray, no active pulmonary disease. PREVIOUS CARDIAC WORKUP: The patient had a stress test on 06/09/2017, which showed ischemia. Following that, the patient had a cardiac catheterization on 06/11/2017, which showed LV normal contractility with LV ejection fraction of 60% to 65%, LVEDP was 25 to 30 and right heart catheterization showed right atrial pressure of 16, RV pressure 44/15, PA pressure of 40/27, mean PA pressure was 32, wedge pressure was 24, and coronary arteries were normal. The patient had echo of 06/09/2017, which showed normal LV size, normal LV systolic function with ejection fraction of 60% to 65%, [id number] aortic regurgitation, [id number] mitral regurgitation, mild tricuspid regurgitation, RVSP on echo 35. DIAGNOSES: Acute exacerbation of chronic obstructive pulmonary disease, hypertension, hypothyroidism, cellulitis of the lower legs, status post permanent pacemaker insertion, mild pulmonary hypertension, on right heart catheterization on 06/11/2017, normal coronaries, wedge pressure was 24 and left ventricular end diastolic pressure was 25 to 30, [id number] aortic insufficiency, [id number] mitral regurgitation, mild tricuspid regurgitation. PLAN: The patient has been already on antiplatelet therapy with aspirin 81 mg daily, potassium 20 mEq p.o. b.i.d. should be started today, furosemide 40 mg p.o. b.i.d. We will give one Lasix 40 IV stat dose to help the edema on the feet. Atorvastatin 10 mg daily, metoprolol 50 mg every a.m. and 25 mg every p.m., Lovenox 40 mg subcu daily, magnesium IV has been already ordered 1 g, Protonix 40 daily, ceftriaxone 2 g IV daily, levothyroxine 100 mcg p.o. daily, alprazolam 0.25 b.i.d. p.r.n. We will follow. Jefferson Solomon MD
[2017-09-08] MEDS: guaiFENesin-DM 600-30 mg ER Tab PO SCH (17:57)
[2017-09-08] MEDS: Arformoterol 15 mcg/2 ml Inh Sol IH SCH (20:20)
[2017-09-08] MEDS: Budesonide 0.5 mg/2 ml Inhal Susp UD IH SCH (20:20)
[2017-09-08] MEDS ORDERED: Pneumococcal 23-Valent Vaccine IM ONE (22:11)
[2017-09-09] MEDS: Albuterol-Ipratrop 3 mg / 0.5 (3 ml) UD IH SCH ×6 (03:43→19:43)
[2017-09-09 06:58] LABS: GRAN # 11.73 (1.4-6.5); GRAN % 86.3 % (50.0-68.0); HEMOGLOBIN 12.7 g/dL (12.0-16.0); LYMPH # 0.8 (1.2-3.4); MEAN CELL VOLUME 90.5 fl (80.0-105.0); MEAN CORPUSCULAR HEMOGLOBIN 30.9 pg (25.0-35.0); MEAN CORPUSCULAR HGB CONC 34.1 g/dl (31.0-37.0); MEAN PLATELET VOLUME 10.3 fl (7.0-11.0); MONO # 1.1 (0.1-0.6); MONO % 7.7 % (1.0-6.0); RBC 4.11 10^6/uL (3.5-6.1); RED CELL DISTRIBUTION WIDTH 13.9 % (11.5-14.5); WHITE BLOOD COUNT 13.6 10^3/ul (4.5-11.0)
[2017-09-09] MEDS: Arformoterol 15 mcg/2 ml Inh Sol IH SCH ×2 (07:24→19:42)
[2017-09-09] MEDS: Budesonide 0.5 mg/2 ml Inhal Susp UD IH SCH ×2 (07:24→19:43)
[2017-09-09 08:01] LABS: ALB/GLOB RATIO 1.5 (1.1-1.8); ALBUMIN 3.9 g/dL (3.0-4.8); ALT/SGPT 35 U/L (7-56); AST/SGOT 23 U/L (14-36); BLOOD UREA NITROGEN 39 mg/dL (7-21); CALCIUM 9.7 mg/dL (8.4-10.5); GFR AFRICAN-AMERICAN > 60; GFR NON-AFRICAN AMERICAN > 60
[2017-09-09] MEDS: MethylPREDNISolone 40 mg Vial IVP SCH (10:17)
[2017-09-09] MEDS: Enoxaparin 40 mg Syringe SC SCH (10:17)
[2017-09-09] MEDS: cefTRIAXone 2 GM IN NS 2 GM/100 ML BAG IVPB SCH (10:17)
[2017-09-09] MEDS: Potassium Chloride 20 mEq ER Tab PO SCH ×2 (10:17→17:29)
[2017-09-09] MEDS: Levothyroxine 100 MCG TAB PO SCH (10:18)
[2017-09-09] MEDS: Pantoprazole 40 mg EC Tab PO SCH (10:18)
[2017-09-09] MEDS: guaiFENesin-DM 600-30 mg ER Tab PO SCH ×2 (10:18→17:30)
[2017-09-09] MEDS: Cholecalciferol 1,000 INTLU TAB PO SCH (10:27)
[2017-09-09] MEDS ORDERED: Albuterol-Ipratrop 3 mg / 0.5 (3 ml) UD IH SCH (11:45)
--- NOTE | 2017-09-09 13:14 | CP.PCM.PN ---
<LeroyFreedom - Last Filed: 09/09/17 13:17> Subjective - Date & Time of Evaluation Date of Evaluation: 09/09/17 Time of Evaluation: 13:10 - Subjective Subjective: Hospitalist Service Patient seen and examined at bedside. Patient reports breathing is still crummy and reports breathing treatment were making her jittery. Nurse reports no events overnight. Objective - Vital Signs/Intake and Output Vital Signs (last 24 hours): Temp Pulse Resp BP Pulse Ox 97.6 F 93 H 20 112/61 99 09/09/17 12:00 09/09/17 12:00 09/09/17 12:00 09/09/17 12:00 09/09/17 06:00 Intake and Output: 09/09/17 09/09/17 06:59 18:59 Intake Total 300 Output Total 200 Balance 100 - Medications Medications: Current Medications Acetaminophen (Tylenol 325mg Tab) 650 mg PO Q6H PRN PRN Reason: Headache Last Admin: 09/08/17 18:45 Dose: 650 mg Albuterol/Ipratropium (Duoneb 3 Mg/0.5 Mg (3 Ml) Ud) 3 ml IH Q2H PRN PRN Reason: Shortness of Breath Albuterol/Ipratropium (Duoneb 3 Mg/0.5 Mg (3 Ml) Ud) 3 ml IH [id number] [facility] Last Admin: 09/09/17 13:06 Dose: Not Given Alprazolam (Xanax) 0.25 mg PO BID PRN; Protocol PRN Reason: Anxiety Stop: 09/15/17 09:40 Arformoterol Tartrate (Brovana) 15 mcg IH [id number] [facility] Last Admin: 09/09/17 07:24 Dose: 15 mcg Aspirin (Ecotrin) 81 mg PO DAILY [facility] Last Admin: 09/09/17 10:18 Dose: 81 mg Atorvastatin Calcium (Lipitor) 10 mg PO DIN [facility] Last Admin: 09/08/17 17:57 Dose: 10 mg Budesonide (Pulmicort Respules) 1 mg IH [id number] [facility] Last Admin: 09/09/17 07:24 Dose: 1 mg Cholecalciferol (Vitamin D) 1,000 intlu PO DAILY [facility] Last Admin: 09/09/17 10:27 Dose: 1,000 intlu Enoxaparin Sodium (Lovenox) 40 mg SC DAILY [facility] PRN Reason: Protocol Last Admin: 09/09/17 10:17 Dose: 40 mg Furosemide (Lasix) 40 mg PO BID [facility] Last Admin: 09/09/17 10:18 Dose: 40 mg Guaifenesin/Dextromethorphan (Mucinex-Dm 600-30 Mg) 1 tab PO BID [facility] Last Admin: 09/09/17 10:18 Dose: 1 tab Ceftriaxone Sodium (Rocephin 2 Gm Ivpb) 2 gm in 100 mls @ 100 mls/hr IVPB DAILY [facility] PRN Reason: Protocol Last Admin: 09/09/17 10:17 Dose: 100 mls/hr Levothyroxine Sodium (Synthroid) 100 mcg PO DAILY [facility] Last Admin: 09/09/17 10:18 Dose: 100 mcg Methylprednisolone (Solu-Medrol) 40 mg IVP DAILY [facility] Last Admin: 09/09/17 10:17 Dose: 40 mg Metoprolol Tartrate (Lopressor) 50 mg PO QAM [facility] Last Admin: 09/09/17 10:18 Dose: 50 mg Metoprolol Tartrate (Lopressor) 25 mg PO QPM [facility] Ondansetron HCl (Zofran Odt) 4 mg PO Q8 PRN PRN Reason: Nausea/Vomiting Pantoprazole Sodium (Protonix Ec Tab) 40 mg PO DAILY [facility] Last Admin: 09/09/17 10:18 Dose: 40 mg Potassium Chloride (K-Dur 20 Meq Er Tab) 20 meq PO BID [facility] Last Admin: 09/09/17 10:17 Dose: 20 meq - Labs Labs: 09/09/17 06:30 09/09/17 06:30 PT 11.4 SECONDS (9.4-12.5) 09/08/17 06:55 INR 0.99 (0.93-1.08) 09/08/17 06:55 APTT 22.9 Seconds (25.1-36.5) L 09/08/17 06:55 - Constitutional Appears: Non-toxic - Head Exam Head Exam: ATRAUMATIC, NORMOCEPHALIC - Eye Exam Eye Exam: EOMI, Normal appearance - ENT Exam ENT Exam: Mucous Membranes Moist - Neck Exam Neck Exam: Normal Inspection - Respiratory Exam Respiratory Exam: NORMAL BREATHING PATTERN. absent: Accessory Muscle Use Additional comments: crackles at left lung base - Cardiovascular Exam Cardiovascular Exam: RRR, +S1, +S2 - GI/Abdominal Exam GI & Abdominal Exam: Soft, Normal Bowel Sounds - Extremities Exam Additional comments: lower extremities tender to palpation. - Back Exam Back Exam: NORMAL INSPECTION. absent: CVA tenderness (L), CVA tenderness (R) - Neurological Exam Neurological Exam: Alert, Awake - Psychiatric Exam Psychiatric exam: Normal Affect, Normal Mood - Skin Skin Exam: Dry, Intact, Normal Color, Warm Assessment and Plan - Assessment and Plan (Free Text) Assessment: 77 year old female with a past medical history of COPD (on 2-3L of oxygen at home), chronic lower extremity edema, diastolic HF, pacemaker, GERD, who presents with acute onset dyspnea, chest pain, and a 3.5 days of a productive cough. Plan: 1) COPD exacerbation - Duonebs q6h GRETEL and q2h PRN - Budesonide 1 mg IH q12h - Aformoterol 15 mcg IH q12h Resp - Solumedrol 40 mg IVP Daily - Chest X-ray shows no infiltrate - Oxygen via NC with target SpO2 90-92% 2) Chest pain - EKG negative for ischemia - Troponin (-) x3; - Cardiology, Dr. Solomon consulted, appreciate recommendations - Enteric coated aspirin 81 mg PO daily - CT head shows no acute infarction, masses or hemorrhage is seen. No acute intracranial abnormality is identified. Diffuse age-related cerebral atrophy and mild chronic microvascular white matter ischemic changes, without evidence of an acute intracranial abnormality. 3) Diastolic CHF with chronic lower extremity edema - Continue with Lasix 40 mg PO BID - Metoprolol Tartarate 50 in AM and 25 in PM - Cardiology recommendations appreciated. 4) GERD/dyspepsia/nausea - Continue Esomeprazole - Zofran PRN 5) Anxiety - Xanax 0.25 BID 6) Hypothryoidism - Synthroid 100 mcg PO daily 7) Vitamin D deficieny - 1,000 IU daily 8) GI/DVT prophylaxis - Continue with Esomeprazole - Lovenox 40 mg SC - HHD diet - Physical Therapy Case reviewed and discussed with Dr. Fadia Joe <Jefferson Joe - Last Filed: 09/11/17 14:58> Objective - Vital Signs/Intake and Output Vital Signs (last 24 hours): Temp Pulse Resp BP Pulse Ox 97.9 F 67 18 106/78 95 05/17/18 08:38 09/11/17 09:22 09/11/17 08:38 09/11/17 09:23 09/11/17 08:38 Intake and Output: 09/11/17 09/11/17 06:59 18:59 Intake Total 540 Balance 540 - Medications Medications: Current Medications Acetaminophen (Tylenol 325mg Tab) 650 mg PO Q6H PRN PRN Reason: Headache Last Admin: 09/08/17 18:45 Dose: 650 mg Albuterol/Ipratropium (Duoneb 3 Mg/0.5 Mg (3 Ml) Ud) 3 ml IH Q2H PRN PRN Reason: Shortness of Breath Albuterol/Ipratropium (Duoneb 3 Mg/0.5 Mg (3 Ml) Ud) 3 ml IH [id number] [facility] Last Admin: 09/11/17 13:20 Dose: 3 ml Alprazolam (Xanax) 0.25 mg PO BID PRN; Protocol PRN Reason: Anxiety Stop: 09/15/17 09:40 Arformoterol Tartrate (Brovana) 15 mcg IH [id number] [facility] Last Admin: 09/11/17 07:29 Dose: 15 mcg Aspirin (Ecotrin) 81 mg PO DAILY [facility] Last Admin: 09/11/17 09:23 Dose: 81 mg Atorvastatin Calcium (Lipitor) 10 mg PO DIN [facility] Last Admin: 09/10/17 17:17 Dose: 10 mg Azithromycin (Zithromax) 250 mg PO DAILY [facility] PRN Reason: Protocol Stop: 09/14/17 10:01 Last Admin: 09/11/17 09:21 Dose: 250 mg Budesonide (Pulmicort Respules) 1 mg IH [id number] [facility] Last Admin: 09/11/17 07:31 Dose: 0.5 mg Cholecalciferol (Vitamin D) 1,000 intlu PO DAILY [facility] Last Admin: 09/11/17 09:20 Dose: 1,000 intlu Enoxaparin Sodium (Lovenox) 40 mg SC DAILY [facility] PRN Reason: Protocol Last Admin: 09/11/17 09:21 Dose: 40 mg Furosemide (Lasix) 40 mg PO BID [facility] Last Admin: 09/11/17 09:23 Dose: 40 mg Guaifenesin/Dextromethorphan (Mucinex-Dm 600-30 Mg) 1 tab PO BID [facility] Last Admin: 09/11/17 09:22 Dose: 1 tab Lactobacillus Acidophilus (Bacid Acidophilus) 1 cap PO BID [facility] Last Admin: 09/11/17 09:22 Dose: 1 cap Levothyroxine Sodium (Synthroid) 100 mcg PO DAILY [facility] Last Admin: 09/11/17 09:23 Dose: 100 mcg Metoprolol Tartrate (Lopressor) 50 mg PO QAM [facility] Last Admin: 09/11/17 09:22 Dose: 50 mg Metoprolol Tartrate (Lopressor) 25 mg PO QPM [facility] Last Admin: 09/10/17 17:17 Dose: 25 mg Ondansetron HCl (Zofran Odt) 4 mg PO Q8 PRN PRN Reason: Nausea/Vomiting Pantoprazole Sodium (Protonix Ec Tab) 40 mg PO DAILY [facility] Last Admin: 09/11/17 09:23 Dose: 40 mg Potassium Chloride (K-Dur 20 Meq Er Tab) 20 meq PO BID [facility] Last Admin: 09/11/17 09:22 Dose: 20 meq Prednisone (Prednisone Tab) 40 mg PO DAILY [facility] Stop: 09/16/17 10:01 - Labs Labs: 09/11/17 05:30 09/11/17 05:45 PT 11.4 SECONDS (9.4-12.5) 09/08/17 06:55 INR 0.99 (0.93-1.08) 09/08/17 06:55 APTT 22.9 Seconds (25.1-36.5) L 09/08/17 06:55 Attending/Attestation - Attestation I have personally seen and examined this patient.: Yes I have fully participated in the care of the patient.: Yes I have reviewed all pertinent clinical information, including history, physical exam and plan: Yes Notes (Text): 09/11/17 14:58 edical record note made by the resident after discussion with my direction and input after the patient was personally seen and examined by me. I have reviewed the chart and agree that the record accurately reflects by personal performance of the history, physical exam, data review, and medical decision-making, in the course for the patient. I have also personally directed the plan of care. Management plan was discussed in detail with patient. Education was provided.
--- NOTE | 2017-09-09 13:46 | PN ---
DATE: 09/09/2017 REASON FOR CONSULTATION AND FOLLOWUP: Shortness of breath, COPD, permanent pacemaker, hypertension. SUBJECTIVE: The patient feels a little better, but still wheezing. Denies any chest pain, shortness of breath, or any palpitations. OBJECTIVE: GENERAL: Not in apparent distress. VITAL SIGNS: As follows, temperature afebrile, heart rate 87, blood pressure 115/58. HEENT: PERRLA. Extraocular muscles intact. NECK: Supple. No carotid bruit or thyromegaly. CHEST: Clear to auscultation. HEART: S1 and S2, regular. ABDOMEN: Soft. EXTREMITIES: Clubbing and cyanosis negative. LABORATORY DATA: Blood workup as follows: WBC 13.6, hemoglobin 12.3, hematocrit 37.2, platelet count 192. Chemistry shows sodium 139, potassium 3, chloride 93, carbon dioxide 30, anion gap of 20. BUN 39, creatinine 0.9. Troponin remains negative. IMPRESSION: Acute exacerbation of chronic obstructive pulmonary disease, history of permanent pacemaker, hypertension, hypothyroidism, cellulitis of lower extremity, status post permanent pacemaker, mild pulmonary hypertension. On right heart catheterization on 06/11/2017, normal coronaries, wedge pressure was 24 and left ventricular end diastolic pressure was 25 to 30, [id number] aortic insufficiency, [id number] mitral regurgitation, mild tricuspid regurgitation. RECOMMENDATIONS: Continue baby aspirin, supplement electrolytes as needed. Continue IV Lasix. Continue broad-spectrum antibiotics. Continue treatment for COPD, mild electrolytes. The patient is on IV prednisone, on levothyroxine. The patient is bringing some phlegm, so we will give a dose of IV Zithromax. The patient is already on ceftriaxone covering both for COPD as well as for cellulitis. We will continue this. We will discontinue telemetry. Monitor electrolytes. Possible discharge planning when stable. From cardiology point of view, the patient is stable. We will add magnesium and phosphorus level in the morning and supplement potassium. Continue DVT prophylaxis. Thank you Dr. Morgan, for providing us the opportunity in taking care of the patient, Cinthya Kimball. Jefferson Levine MD
[2017-09-10 07:11] LABS: GRAN # 8.26 (1.4-6.5); GRAN % 77.1 % (50.0-68.0); HEMOGLOBIN 13.6 g/dL (12.0-16.0); LYMPH # 1.3 (1.2-3.4); LYMPH % 11.7 % (22.0-35.0); MEAN CELL VOLUME 92.4 fl (80.0-105.0); MEAN CORPUSCULAR HEMOGLOBIN 31.3 pg (25.0-35.0); MEAN CORPUSCULAR HGB CONC 33.9 g/dl (31.0-37.0); MEAN PLATELET VOLUME 10.4 fl (7.0-11.0); MONO # 1.2 (0.1-0.6); MONO % 11.2 % (1.0-6.0); RBC 4.34 10^6/uL (3.5-6.1); RED CELL DISTRIBUTION WIDTH 14.1 % (11.5-14.5); WHITE BLOOD COUNT 10.7 10^3/ul (4.5-11.0)
[2017-09-10 07:32] LABS: ALB/GLOB RATIO 1.3 (1.1-1.8); ALBUMIN 4.1 g/dL (3.0-4.8); ALT/SGPT 30 U/L (7-56); AST/SGOT 30 U/L (14-36); BLOOD UREA NITROGEN 42 mg/dL (7-21); CALCIUM 9.6 mg/dL (8.4-10.5); GFR AFRICAN-AMERICAN > 60; GFR NON-AFRICAN AMERICAN > 60
[2017-09-10] MEDS: Arformoterol 15 mcg/2 ml Inh Sol IH SCH ×2 (07:53→19:29)
[2017-09-10] MEDS: Albuterol-Ipratrop 3 mg / 0.5 (3 ml) UD IH SCH ×3 (07:54→19:39)
[2017-09-10] MEDS: Pantoprazole 40 mg EC Tab PO SCH (10:07)
[2017-09-10] MEDS: Potassium Chloride 20 mEq ER Tab PO SCH ×2 (10:07→17:17)
[2017-09-10] MEDS: guaiFENesin-DM 600-30 mg ER Tab PO SCH ×2 (10:07→17:17)
[2017-09-10] MEDS: Cholecalciferol 1,000 INTLU TAB PO SCH (10:08)
[2017-09-10] MEDS: Levothyroxine 100 MCG TAB PO SCH (10:08)
[2017-09-10] MEDS: Enoxaparin 40 mg Syringe SC SCH (10:08)
[2017-09-10] MEDS: MethylPREDNISolone 40 mg Vial IVP SCH (10:08)
[2017-09-10] MEDS: cefTRIAXone 2 GM IN NS 2 GM/100 ML BAG IVPB SCH (10:09)
--- NOTE | 2017-09-10 12:20 | CP.PCM.PN ---
<Freedom Harper - Last Filed: 09/10/17 13:27> Subjective - Date & Time of Evaluation Date of Evaluation: 09/10/17 Time of Evaluation: 12:19 - Subjective Subjective: Patient states breathing is better, but still complained of cough. Patient requested TCU evaluation. Objective - Vital Signs/Intake and Output Vital Signs (last 24 hours): Temp Pulse Resp BP Pulse Ox 96.6 F L 74 20 136/76 98 09/10/17 07:56 09/10/17 10:07 09/10/17 07:56 09/10/17 10:07 09/10/17 07:56 Intake and Output: 09/10/17 09/10/17 06:59 18:59 Intake Total 540 Balance 540 - Medications Medications: Current Medications Acetaminophen (Tylenol 325mg Tab) 650 mg PO Q6H PRN PRN Reason: Headache Last Admin: 09/08/17 18:45 Dose: 650 mg Albuterol/Ipratropium (Duoneb 3 Mg/0.5 Mg (3 Ml) Ud) 3 ml IH Q2H PRN PRN Reason: Shortness of Breath Albuterol/Ipratropium (Duoneb 3 Mg/0.5 Mg (3 Ml) Ud) 3 ml IH [id number] [facility] Last Admin: 09/10/17 07:54 Dose: 3 ml Alprazolam (Xanax) 0.25 mg PO BID PRN; Protocol PRN Reason: Anxiety Stop: 09/15/17 09:40 Arformoterol Tartrate (Brovana) 15 mcg IH [id number] [facility] Last Admin: 09/10/17 07:53 Dose: 15 mcg Aspirin (Ecotrin) 81 mg PO DAILY [facility] Last Admin: 09/10/17 10:07 Dose: 81 mg Atorvastatin Calcium (Lipitor) 10 mg PO DIN [facility] Last Admin: 09/09/17 17:29 Dose: 10 mg Budesonide (Pulmicort Respules) 1 mg IH [id number] [facility] Last Admin: 09/09/17 19:43 Dose: 1 mg Cholecalciferol (Vitamin D) 1,000 intlu PO DAILY [facility] Last Admin: 09/10/17 10:08 Dose: 1,000 intlu Enoxaparin Sodium (Lovenox) 40 mg SC DAILY [facility] PRN Reason: Protocol Last Admin: 09/10/17 10:08 Dose: 40 mg Furosemide (Lasix) 40 mg PO BID [facility] Last Admin: 09/10/17 10:07 Dose: 40 mg Guaifenesin/Dextromethorphan (Mucinex-Dm 600-30 Mg) 1 tab PO BID [facility] Last Admin: 09/10/17 10:07 Dose: 1 tab Ceftriaxone Sodium (Rocephin 2 Gm Ivpb) 2 gm in 100 mls @ 100 mls/hr IVPB DAILY [facility] PRN Reason: Protocol Stop: 09/11/17 10:59 Last Admin: 09/10/17 10:09 Dose: 100 mls/hr Levothyroxine Sodium (Synthroid) 100 mcg PO DAILY [facility] Last Admin: 09/10/17 10:08 Dose: 100 mcg Methylprednisolone (Solu-Medrol) 40 mg IVP DAILY [facility] Last Admin: 09/10/17 10:08 Dose: 40 mg Metoprolol Tartrate (Lopressor) 50 mg PO QAM [facility] Last Admin: 09/10/17 10:07 Dose: 50 mg Metoprolol Tartrate (Lopressor) 25 mg PO QPM [facility] Last Admin: 09/09/17 17:29 Dose: 25 mg Ondansetron HCl (Zofran Odt) 4 mg PO Q8 PRN PRN Reason: Nausea/Vomiting Pantoprazole Sodium (Protonix Ec Tab) 40 mg PO DAILY [facility] Last Admin: 09/10/17 10:07 Dose: 40 mg Potassium Chloride (K-Dur 20 Meq Er Tab) 20 meq PO BID [facility] Last Admin: 09/10/17 10:07 Dose: 20 meq - Labs Labs: 09/10/17 06:30 09/10/17 06:30 PT 11.4 SECONDS (9.4-12.5) 09/08/17 06:55 INR 0.99 (0.93-1.08) 09/08/17 06:55 APTT 22.9 Seconds (25.1-36.5) L 09/08/17 06:55 Assessment and Plan - Assessment and Plan (Free Text) Assessment: 77 year old female with a past medical history of COPD (on 2-3L of oxygen at home), chronic lower extremity edema, diastolic HF, pacemaker, GERD, who presents with acute onset dyspnea, chest pain, and a 3.5 days of a productive cough. Plan: 1) COPD exacerbation - Duonebs q6h GRETEL and q2h PRN - Budesonide 1 mg IH q12h - Aformoterol 15 mcg IH q12h Resp - Solumedrol 40 mg IVP Daily - Ceftriaxone day 2 of 3 - Azithromycin started today; 500 once, 250 for next four days - Chest X-ray shows no infiltrate - Oxygen via NC with target SpO2 90-92% 2) Chest pain - EKG negative for ischemia - Troponin (-) x3; - Cardiology, Dr. Solomon/mario consulted, appreciate recommendations - Enteric coated aspirin 81 mg PO daily - CT head shows no acute infarction, masses or hemorrhage is seen. No acute intracranial abnormality is identified. Diffuse age-related cerebral atrophy and mild chronic microvascular white matter ischemic changes, without evidence of an acute intracranial abnormality. 3) Diastolic CHF with chronic lower extremity edema - Continue with Lasix 40 mg PO BID - Metoprolol Tartarate 50 in AM and 25 in PM - Cardiology recommendations appreciated. 4) GERD/dyspepsia/nausea - Continue Esomeprazole - Zofran PRN 5) Anxiety - Xanax 0.25 BID 6) Hypothryoidism - Synthroid 100 mcg PO daily 7) Vitamin D deficieny - 1,000 IU daily 8) GI/DVT prophylaxis/Disposition - Continue with Esomeprazole - Lovenox 40 mg SC - HHD diet - Physical Therapy/TCU evaluation Case reviewed and discussed with Dr. Fadia Joe <Jefferson Joe - Last Filed: 09/11/17 15:01> Objective - Vital Signs/Intake and Output Vital Signs (last 24 hours): Temp Pulse Resp BP Pulse Ox 97.9 F 67 18 106/78 95 09/11/17 08:38 09/11/17 09:22 09/11/17 08:38 09/11/17 09:23 09/11/17 08:38 Intake and Output: 09/11/17 09/11/17 06:59 18:59 Intake Total 540 Balance 540 - Medications Medications: Current Medications Acetaminophen (Tylenol 325mg Tab) 650 mg PO Q6H PRN PRN Reason: Headache Last Admin: 09/08/17 18:45 Dose: 650 mg Albuterol/Ipratropium (Duoneb 3 Mg/0.5 Mg (3 Ml) Ud) 3 ml IH Q2H PRN PRN Reason: Shortness of Breath Albuterol/Ipratropium (Duoneb 3 Mg/0.5 Mg (3 Ml) Ud) 3 ml IH [id number] [facility] Last Admin: 09/11/17 13:20 Dose: 3 ml Alprazolam (Xanax) 0.25 mg PO BID PRN; Protocol PRN Reason: Anxiety Stop: 09/15/17 09:40 Arformoterol Tartrate (Brovana) 15 mcg IH [id number] [facility] Last Admin: 09/11/17 07:29 Dose: 15 mcg Aspirin (Ecotrin) 81 mg PO DAILY [facility] Last Admin: 09/11/17 09:23 Dose: 81 mg Atorvastatin Calcium (Lipitor) 10 mg PO DIN [facility] Last Admin: 09/10/17 17:17 Dose: 10 mg Azithromycin (Zithromax) 250 mg PO DAILY [facility] PRN Reason: Protocol Stop: 09/14/17 10:01 Last Admin: 09/11/17 09:21 Dose: 250 mg Budesonide (Pulmicort Respules) 1 mg IH [id number] [facility] Last Admin: 09/11/17 07:31 Dose: 0.5 mg Cholecalciferol (Vitamin D) 1,000 intlu PO DAILY [facility] Last Admin: 09/11/17 09:20 Dose: 1,000 intlu Enoxaparin Sodium (Lovenox) 40 mg SC DAILY [facility] PRN Reason: Protocol Last Admin: 09/11/17 09:21 Dose: 40 mg Furosemide (Lasix) 40 mg PO BID [facility] Last Admin: 09/11/17 09:23 Dose: 40 mg Guaifenesin/Dextromethorphan (Mucinex-Dm 600-30 Mg) 1 tab PO BID [facility] Last Admin: 09/11/17 09:22 Dose: 1 tab Lactobacillus Acidophilus (Bacid Acidophilus) 1 cap PO BID [facility] Last Admin: 09/11/17 09:22 Dose: 1 cap Levothyroxine Sodium (Synthroid) 100 mcg PO DAILY [facility] Last Admin: 09/11/17 09:23 Dose: 100 mcg Metoprolol Tartrate (Lopressor) 50 mg PO QAM [facility] Last Admin: 09/11/17 09:22 Dose: 50 mg Metoprolol Tartrate (Lopressor) 25 mg PO QPM [facility] Last Admin: 09/10/17 17:17 Dose: 25 mg Ondansetron HCl (Zofran Odt) 4 mg PO Q8 PRN PRN Reason: Nausea/Vomiting Pantoprazole Sodium (Protonix Ec Tab) 40 mg PO DAILY [facility] Last Admin: 09/11/17 09:23 Dose: 40 mg Potassium Chloride (K-Dur 20 Meq Er Tab) 20 meq PO BID [facility] Last Admin: 09/11/17 09:22 Dose: 20 meq Prednisone (Prednisone Tab) 40 mg PO DAILY [facility] Stop: 09/16/17 10:01 - Labs Labs: 09/11/17 05:30 09/11/17 05:45 PT 11.4 SECONDS (9.4-12.5) 09/08/17 06:55 INR 0.99 (0.93-1.08) 09/08/17 06:55 APTT 22.9 Seconds (25.1-36.5) L 09/08/17 06:55 Attending/Attestation - Attestation I have personally seen and examined this patient.: Yes I have fully participated in the care of the patient.: Yes I have reviewed all pertinent clinical information, including history, physical exam and plan: Yes Notes (Text): 09/11/17 14:59 Medical record note made by the resident after discussion with my direction and input after the patient was personally seen and examined by me. I have reviewed the chart and agree that the record accurately reflects by personal performance of the history, physical exam, data review, and medical decision-making, in the course for the patient. I have also personally directed the plan of care. 76 year old female with history of COPD , CHF secondary to diastolic dysfunction, HTN, PUD, dyslipidemia, hypothyroidism, depression, gout, colonic polyps who presented with cough, dyspnea, chest pain and found to have COPD exacerbation.Patient has responded well to Nebulization, steroid and antibiotics.Steroid can be changed to oral.Patient is on wynne line hypoxia. We will also get Physical therapy evaluation. Management plan was discussed in detail with patient. Education was provided.
--- NOTE | 2017-09-10 14:32 | PN ---
DATE: 09/10/2017 REASON FOR THE CONSULTATION AND FOLLOWUP: Shortness of breath, COPD exacerbation, history of permanent pacemaker, recent cardiac catheterization, nonobstructive coronary artery disease. SUBJECTIVE: The patient denies any chest pain, shortness of breath or any palpitations. OBJECTIVE: GENERAL: Not in apparent distress, lying flat, wanted to go home. VITAL SIGNS: As follows: Temperature afebrile, heart rate 74, blood pressure 132/58. HEENT: PERRLA, intact. NECK: Supple. No carotid bruit or thyromegaly. CHEST: Clear to auscultation. HEART: S1 and S2 regular. ABDOMEN: Soft. EXTREMITIES: Clubbing and cyanosis negative. Mild cellulitis noted in the lower extremity. LABORATORY DATA: Blood workup as follows: WBC 10.7, hemoglobin 13.6, hematocrit 40.1 and platelet count 206. Chemistry shows sodium 142, potassium 3.8, chloride 95, carbon dioxide 37, anion gap of 14, BUN 42 and creatinine 0.9. IMPRESSION: Acute exacerbation of chronic obstructive pulmonary disease, obesity, diabetes, hypertension, hyperlipidemia, tobacco abuse, history of permanent pacemaker. Recent cardiac catheterization on 06/11/2017, normal coronaries, wedge pressure of 24, left ventricular end-diastolic pressure 25 to 30, [id number] aortic insufficiency, [id number] mitral regurgitation, mild tricuspid regurgitation. RECOMMENDATIONS: Continue aggressive treatment for COPD. Discontinue Telemetry. Continue DVT prophylaxis. CVS status is stable. Pulmonary, the patient is stable. The patient can be okayed to be discharged. Continue metoprolol 50 mg in the morning and 25 . Okay to discharge home once stable. No further cardiac workup is planned or warranted. Jefferson Levine MD
--- NOTE | 2017-09-10 16:52 | IP.NPCORE ---
COPD Progress Note - COPD Progress Note Plan to assess at outpatient follow up: Yes Symptoms:: Increase in Dyspnea, Cough Initial CXR:: negative Date:: 09/10/17 Oxygen Saturation/Pulse Oximetry:: 98 ABG Not Indicated (Symptoms Improved): Yes Nebulizers Q2-4 hrs:: Duonebs/Albuterol Therapy Antibiotics Not Indicated: Yes Oxygen Delivery Method: Nasal Cannula Oxygen Flow Rate: 2 Smoking cessation counseling all stages copd exacerbation: No
[2017-09-10] MEDS: Lactobacillus Acidophilus 500 MU Cap PO SCH (17:17)
[2017-09-10] MEDS: Budesonide 0.5 mg/2 ml Inhal Susp UD IH SCH (19:35)
[2017-09-11 06:47] LABS: EOS % 0.1 % (1.5-5.0); GRAN # 5.83 (1.4-6.5); GRAN % 70.7 % (50.0-68.0); HEMOGLOBIN 13.1 g/dL (12.0-16.0); LYMPH # 1.3 (1.2-3.4); LYMPH % 16.3 % (22.0-35.0); MEAN CELL VOLUME 92.3 fl (80.0-105.0); MEAN CORPUSCULAR HEMOGLOBIN 30.6 pg (25.0-35.0); MEAN CORPUSCULAR HGB CONC 33.2 g/dl (31.0-37.0); MEAN PLATELET VOLUME 10.1 fl (7.0-11.0); MONO # 1.1 (0.1-0.6); MONO % 12.9 % (1.0-6.0); RBC 4.28 10^6/uL (3.5-6.1); RED CELL DISTRIBUTION WIDTH 14.1 % (11.5-14.5); WHITE BLOOD COUNT 8.2 10^3/ul (4.5-11.0)
[2017-09-11 06:50] LABS: ALB/GLOB RATIO 1.2 (1.1-1.8); ALBUMIN 3.8 g/dL (3.0-4.8); ALT/SGPT 28 U/L (7-56); AST/SGOT 26 U/L (14-36); BLOOD UREA NITROGEN 41 mg/dL (7-21); CALCIUM 9.6 mg/dL (8.4-10.5); GFR AFRICAN-AMERICAN > 60; GFR NON-AFRICAN AMERICAN > 60
[2017-09-11] MEDS: Arformoterol 15 mcg/2 ml Inh Sol IH SCH ×2 (07:29→20:29)
[2017-09-11] MEDS: Albuterol-Ipratrop 3 mg / 0.5 (3 ml) UD IH SCH ×3 (07:29→20:29)
[2017-09-11] MEDS: Budesonide 0.5 mg/2 ml Inhal Susp UD IH SCH ×2 (07:31→20:29)
--- NOTE | 2017-09-11 07:58 | CP.PCM.PN ---
Subjective - Date & Time of Evaluation Date of Evaluation: 09/11/17 Time of Evaluation: 06:20 - Subjective Subjective: Awake, no complaints, denies chest pain Reason for consultation and follow up: Cardiac evaluation,chest pain, shortness of breath, CHF, pacemaker, atrial fibrillation Seen and examined by me and Dr. Levine Objective - Vital Signs/Intake and Output Vital Signs (last 24 hours): Temp Pulse Resp BP Pulse Ox 97.2 F L 67 20 100/54 L 98 09/10/17 18:27 09/10/17 18:27 09/10/17 18:27 09/10/17 18:27 09/10/17 18:27 Intake and Output: 09/11/17 09/11/17 06:59 18:59 Intake Total 540 Balance 540 - Medications Medications: Current Medications Acetaminophen (Tylenol 325mg Tab) 650 mg PO Q6H PRN PRN Reason: Headache Last Admin: 09/08/17 18:45 Dose: 650 mg Albuterol/Ipratropium (Duoneb 3 Mg/0.5 Mg (3 Ml) Ud) 3 ml IH Q2H PRN PRN Reason: Shortness of Breath Albuterol/Ipratropium (Duoneb 3 Mg/0.5 Mg (3 Ml) Ud) 3 ml IH [id number] [facility] Last Admin: 09/11/17 07:29 Dose: 3 ml Alprazolam (Xanax) 0.25 mg PO BID PRN; Protocol PRN Reason: Anxiety Stop: 09/15/17 09:40 Arformoterol Tartrate (Brovana) 15 mcg IH [id number] [facility] Last Admin: 09/11/17 07:29 Dose: 15 mcg Aspirin (Ecotrin) 81 mg PO DAILY [facility] Last Admin: 09/10/17 10:07 Dose: 81 mg Atorvastatin Calcium (Lipitor) 10 mg PO DIN [facility] Last Admin: 09/10/17 17:17 Dose: 10 mg Azithromycin (Zithromax) 250 mg PO DAILY [facility] PRN Reason: Protocol Stop: 09/14/17 10:01 Budesonide (Pulmicort Respules) 1 mg IH [id number] [facility] Last Admin: 09/11/17 07:31 Dose: 0.5 mg Cholecalciferol (Vitamin D) 1,000 intlu PO DAILY [facility] Last Admin: 09/10/17 10:08 Dose: 1,000 intlu Enoxaparin Sodium (Lovenox) 40 mg SC DAILY [facility] PRN Reason: Protocol Last Admin: 09/10/17 10:08 Dose: 40 mg Furosemide (Lasix) 40 mg PO BID [facility] Last Admin: 09/10/17 17:17 Dose: 40 mg Guaifenesin/Dextromethorphan (Mucinex-Dm 600-30 Mg) 1 tab PO BID [facility] Last Admin: 09/10/17 17:17 Dose: 1 tab Ceftriaxone Sodium (Rocephin 2 Gm Ivpb) 2 gm in 100 mls @ 100 mls/hr IVPB DAILY [facility] PRN Reason: Protocol Stop: 09/11/17 10:59 Last Admin: 09/10/17 10:09 Dose: 100 mls/hr Lactobacillus Acidophilus (Bacid Acidophilus) 1 cap PO BID [facility] Last Admin: 09/10/17 17:17 Dose: 1 cap Levothyroxine Sodium (Synthroid) 100 mcg PO DAILY [facility] Last Admin: 09/10/17 10:08 Dose: 100 mcg Methylprednisolone (Solu-Medrol) 40 mg IVP DAILY [facility] Last Admin: 09/10/17 10:08 Dose: 40 mg Metoprolol Tartrate (Lopressor) 50 mg PO QAM [facility] Last Admin: 09/10/17 10:07 Dose: 50 mg Metoprolol Tartrate (Lopressor) 25 mg PO QPM [facility] Last Admin: 09/10/17 17:17 Dose: 25 mg Ondansetron HCl (Zofran Odt) 4 mg PO Q8 PRN PRN Reason: Nausea/Vomiting Pantoprazole Sodium (Protonix Ec Tab) 40 mg PO DAILY [facility] Last Admin: 09/10/17 10:07 Dose: 40 mg Potassium Chloride (K-Dur 20 Meq Er Tab) 20 meq PO BID [facility] Last Admin: 09/10/17 17:17 Dose: 20 meq - Labs Labs: 09/11/17 05:30 09/11/17 05:45 PT 11.4 SECONDS (9.4-12.5) 09/08/17 06:55 INR 0.99 (0.93-1.08) 09/08/17 06:55 APTT 22.9 Seconds (25.1-36.5) L 09/08/17 06:55 - Constitutional Appears: No Acute Distress - Head Exam Head Exam: NORMOCEPHALIC - Eye Exam Eye Exam: Normal appearance - ENT Exam ENT Exam: Mucous Membranes Moist - Respiratory Exam Respiratory Exam: Decreased Breath Sounds, Clear to Ausculation Bilateral, NORMAL BREATHING PATTERN - Cardiovascular Exam Cardiovascular Exam: +S1, +S2 Additional comments: PPM - GI/Abdominal Exam GI & Abdominal Exam: Soft, Normal Bowel Sounds - Extremities Exam Extremities Exam: Normal Capillary Refill Additional comments: 2+ edema - Neurological Exam Neurological Exam: Alert, Awake, Oriented x3 - Psychiatric Exam Psychiatric exam: Normal Affect, Normal Mood - Skin Skin Exam: Intact, Normal Color, Warm Assessment and Plan - Assessment and Plan (Free Text) Assessment: A 77 year old female who came in to the ER due to acute onset dyspnea, nausea, substernal chest pain, non radiating, 3.5 days of a productive cough. History of COPD (60 pack year history of smoking), pacemaker, CHF with estimated EF of 62.5% based on 06/11/17 cardiac catheterization, atrial fibrillation, GERD, anxiety, and depression Plan: Atypical chestpain, exacerbation of COPD Normal troponins Recent cardiac 06/15 normal coronaries, LVEF 65% EKG Normal sinus rhythm No evidence of myocardial ischemia PPM On ASA 81 mg daily, Lipiyor 10 mg daily,Lovenox 40 mg daily, Lasix 40 mg BID, Synthroid 100 mcg daily, Lopressor 50 mg in AM, Lopressor 25 mg in PM, Kdur 20 meq BID Continue Lasix for leg edema, additional potassium dose as needed Continue current medications Continue current treatment Will follow up Plan and treatment discussed with Dr. Levine
[2017-09-11 08:39] VITALS: O2SAT 95
[2017-09-11] MEDS: Cholecalciferol 1,000 INTLU TAB PO SCH (09:20)
[2017-09-11] MEDS: cefTRIAXone 2 GM IN NS 2 GM/100 ML BAG IVPB SCH (09:21)
[2017-09-11] MEDS: Enoxaparin 40 mg Syringe SC SCH (09:21)
[2017-09-11] MEDS: Potassium Chloride 20 mEq ER Tab PO SCH ×2 (09:22→17:54)
[2017-09-11] MEDS: guaiFENesin-DM 600-30 mg ER Tab PO SCH ×2 (09:22→17:54)
[2017-09-11] MEDS: Lactobacillus Acidophilus 500 MU Cap PO SCH ×2 (09:22→17:55)
[2017-09-11] MEDS: Pantoprazole 40 mg EC Tab PO SCH (09:23)
[2017-09-11] MEDS: MethylPREDNISolone 40 mg Vial IVP SCH (09:23)
[2017-09-11] MEDS: Levothyroxine 100 MCG TAB PO SCH (09:23)
--- NOTE | 2017-09-11 14:13 | CP.PCM.PN ---
<Freedom Harper - Last Filed: 09/11/17 14:13> Subjective - Date & Time of Evaluation Date of Evaluation: 09/11/17 Time of Evaluation: 10:50 - Subjective Subjective: Hospitalist Service Patient seen and examined at bedside. Patient denies any CP, Dyspnea, palitation , fever, chills, nausea, vomiting. Nurse reports no events overnight. Objective - Vital Signs/Intake and Output Vital Signs (last 24 hours): Temp Pulse Resp BP Pulse Ox 97.9 F 67 18 106/78 95 09/11/17 08:38 09/11/17 09:22 09/11/17 08:38 09/11/17 09:23 09/11/17 08:38 Intake and Output: 09/11/17 09/11/17 06:59 18:59 Intake Total 540 Balance 540 - Medications Medications: Current Medications Acetaminophen (Tylenol 325mg Tab) 650 mg PO Q6H PRN PRN Reason: Headache Last Admin: 09/08/17 18:45 Dose: 650 mg Albuterol/Ipratropium (Duoneb 3 Mg/0.5 Mg (3 Ml) Ud) 3 ml IH Q2H PRN PRN Reason: Shortness of Breath Albuterol/Ipratropium (Duoneb 3 Mg/0.5 Mg (3 Ml) Ud) 3 ml IH [id number] [facility] Last Admin: 09/11/17 13:20 Dose: 3 ml Alprazolam (Xanax) 0.25 mg PO BID PRN; Protocol PRN Reason: Anxiety Stop: 09/15/17 09:40 Arformoterol Tartrate (Brovana) 15 mcg IH [id number] [facility] Last Admin: 09/11/17 07:29 Dose: 15 mcg Aspirin (Ecotrin) 81 mg PO DAILY [facility] Last Admin: 09/11/17 09:23 Dose: 81 mg Atorvastatin Calcium (Lipitor) 10 mg PO DIN [facility] Last Admin: 09/10/17 17:17 Dose: 10 mg Azithromycin (Zithromax) 250 mg PO DAILY [facility] PRN Reason: Protocol Stop: 09/14/17 10:01 Last Admin: 09/11/17 09:21 Dose: 250 mg Budesonide (Pulmicort Respules) 1 mg IH [id number] [facility] Last Admin: 09/11/17 07:31 Dose: 0.5 mg Cholecalciferol (Vitamin D) 1,000 intlu PO DAILY [facility] Last Admin: 09/11/17 09:20 Dose: 1,000 intlu Enoxaparin Sodium (Lovenox) 40 mg SC DAILY [facility] PRN Reason: Protocol Last Admin: 09/11/17 09:21 Dose: 40 mg Furosemide (Lasix) 40 mg PO BID [facility] Last Admin: 09/11/17 09:23 Dose: 40 mg Guaifenesin/Dextromethorphan (Mucinex-Dm 600-30 Mg) 1 tab PO BID [facility] Last Admin: 09/11/17 09:22 Dose: 1 tab Lactobacillus Acidophilus (Bacid Acidophilus) 1 cap PO BID [facility] Last Admin: 09/11/17 09:22 Dose: 1 cap Levothyroxine Sodium (Synthroid) 100 mcg PO DAILY [facility] Last Admin: 09/11/17 09:23 Dose: 100 mcg Metoprolol Tartrate (Lopressor) 50 mg PO QAM [facility] Last Admin: 09/11/17 09:22 Dose: 50 mg Metoprolol Tartrate (Lopressor) 25 mg PO QPM [facility] Last Admin: 09/10/17 17:17 Dose: 25 mg Ondansetron HCl (Zofran Odt) 4 mg PO Q8 PRN PRN Reason: Nausea/Vomiting Pantoprazole Sodium (Protonix Ec Tab) 40 mg PO DAILY [facility] Last Admin: 09/11/17 09:23 Dose: 40 mg Potassium Chloride (K-Dur 20 Meq Er Tab) 20 meq PO BID [facility] Last Admin: 09/11/17 09:22 Dose: 20 meq Prednisone (Prednisone Tab) 40 mg PO DAILY [facility] - Labs Labs: 09/11/17 05:30 09/11/17 05:45 PT 11.4 SECONDS (9.4-12.5) 09/08/17 06:55 INR 0.99 (0.93-1.08) 09/08/17 06:55 APTT 22.9 Seconds (25.1-36.5) L 09/08/17 06:55 - Constitutional Appears: Well, Non-toxic - Head Exam Head Exam: ATRAUMATIC, NORMOCEPHALIC - Eye Exam Eye Exam: EOMI, Normal appearance - ENT Exam ENT Exam: Mucous Membranes Moist - Neck Exam Neck Exam: Normal Inspection - Respiratory Exam Respiratory Exam: Clear to Ausculation Bilateral, NORMAL BREATHING PATTERN. absent: Accessory Muscle Use - Cardiovascular Exam Cardiovascular Exam: RRR, +S1, +S2 - GI/Abdominal Exam GI & Abdominal Exam: Soft, Normal Bowel Sounds - Extremities Exam Extremities Exam: Normal Inspection. absent: Calf Tenderness - Neurological Exam Neurological Exam: Alert, Awake, Oriented x3 - Psychiatric Exam Psychiatric exam: Normal Affect, Normal Mood - Skin Skin Exam: Dry, Intact, Normal Color, Warm Assessment and Plan - Assessment and Plan (Free Text) Assessment: 77 year old female with a past medical history of COPD (on 2-3L of oxygen at home), chronic lower extremity edema, diastolic HF, pacemaker, GERD, who presents with acute onset dyspnea, chest pain, and a 3.5 days of a productive cough. Plan: 1) COPD exacerbation - Duonebs q6h GRETEL and q2h PRN - Budesonide 1 mg IH q12h - Aformoterol 15 mcg IH q12h Resp - Solumedrol 40 mg IVP Daily - Ceftriaxone day 3 of 3 - Azithromycin started today; 500 once, 250 for a total of four days - Chest X-ray shows no infiltrate - Oxygen via NC with target SpO2 90-92% 2) Chest pain - EKG negative for ischemia - Troponin (-) x3; - Cardiology, Dr. Solomon/mario consulted, appreciate recommendations - Enteric coated aspirin 81 mg PO daily - CT head shows no acute infarction, masses or hemorrhage is seen. No acute intracranial abnormality is identified. Diffuse age-related cerebral atrophy and mild chronic microvascular white matter ischemic changes, without evidence of an acute intracranial abnormality. 3) Diastolic CHF with chronic lower extremity edema - Continue with Lasix 40 mg PO BID - Metoprolol Tartarate 50 in AM and 25 in PM - Cardiology recommendations appreciated. 4) GERD/dyspepsia/nausea - Continue Esomeprazole - Zofran PRN 5) Anxiety - Xanax 0.25 BID 6) Hypothryoidism - Synthroid 100 mcg PO daily 7) Vitamin D deficieny - 1,000 IU daily 8) GI/DVT prophylaxis/Disposition - Continue with Esomeprazole - Lovenox 40 mg SC - HHD diet - Pt recommends TCU Case reviewed and discussed with Dr. Fadia Joe <Jefferson Joe - Last Filed: 09/11/17 15:03> Objective - Vital Signs/Intake and Output Vital Signs (last 24 hours): Temp Pulse Resp BP Pulse Ox 97.9 F 67 18 106/78 95 09/11/17 08:38 09/11/17 09:22 09/11/17 08:38 09/11/17 09:23 09/11/17 08:38 Intake and Output: 09/11/17 09/11/17 06:59 18:59 Intake Total 540 Balance 540 - Medications Medications: Current Medications Acetaminophen (Tylenol 325mg Tab) 650 mg PO Q6H PRN PRN Reason: Headache Last Admin: 09/08/17 18:45 Dose: 650 mg Albuterol/Ipratropium (Duoneb 3 Mg/0.5 Mg (3 Ml) Ud) 3 ml IH Q2H PRN PRN Reason: Shortness of Breath Albuterol/Ipratropium (Duoneb 3 Mg/0.5 Mg (3 Ml) Ud) 3 ml IH [id number] [facility] Last Admin: 09/11/17 13:20 Dose: 3 ml Alprazolam (Xanax) 0.25 mg PO BID PRN; Protocol PRN Reason: Anxiety Stop: 09/15/17 09:40 Arformoterol Tartrate (Brovana) 15 mcg IH [id number] [facility] Last Admin: 09/11/17 07:29 Dose: 15 mcg Aspirin (Ecotrin) 81 mg PO DAILY [facility] Last Admin: 09/11/17 09:23 Dose: 81 mg Atorvastatin Calcium (Lipitor) 10 mg PO DIN [facility] Last Admin: 09/10/17 17:17 Dose: 10 mg Azithromycin (Zithromax) 250 mg PO DAILY [facility] PRN Reason: Protocol Stop: 09/14/17 10:01 Last Admin: 09/11/17 09:21 Dose: 250 mg Budesonide (Pulmicort Respules) 1 mg IH [id number] [facility] Last Admin: 09/11/17 07:31 Dose: 0.5 mg Cholecalciferol (Vitamin D) 1,000 intlu PO DAILY [facility] Last Admin: 09/11/17 09:20 Dose: 1,000 intlu Enoxaparin Sodium (Lovenox) 40 mg SC DAILY [facility] PRN Reason: Protocol Last Admin: 09/11/17 09:21 Dose: 40 mg Furosemide (Lasix) 40 mg PO BID [facility] Last Admin: 09/11/17 09:23 Dose: 40 mg Guaifenesin/Dextromethorphan (Mucinex-Dm 600-30 Mg) 1 tab PO BID [facility] Last Admin: 09/11/17 09:22 Dose: 1 tab Lactobacillus Acidophilus (Bacid Acidophilus) 1 cap PO BID [facility] Last Admin: 09/11/17 09:22 Dose: 1 cap Levothyroxine Sodium (Synthroid) 100 mcg PO DAILY [facility] Last Admin: 09/11/17 09:23 Dose: 100 mcg Metoprolol Tartrate (Lopressor) 50 mg PO QAM [facility] Last Admin: 09/11/17 09:22 Dose: 50 mg Metoprolol Tartrate (Lopressor) 25 mg PO QPM [facility] Last Admin: 09/10/17 17:17 Dose: 25 mg Ondansetron HCl (Zofran Odt) 4 mg PO Q8 PRN PRN Reason: Nausea/Vomiting Pantoprazole Sodium (Protonix Ec Tab) 40 mg PO DAILY [facility] Last Admin: 09/11/17 09:23 Dose: 40 mg Potassium Chloride (K-Dur 20 Meq Er Tab) 20 meq PO BID [facility] Last Admin: 09/11/17 09:22 Dose: 20 meq Prednisone (Prednisone Tab) 40 mg PO DAILY [facility] Stop: 09/16/17 10:01 - Labs Labs: 09/11/17 05:30 09/11/17 05:45 PT 11.4 SECONDS (9.4-12.5) 09/08/17 06:55 INR 0.99 (0.93-1.08) 09/08/17 06:55 APTT 22.9 Seconds (25.1-36.5) L 09/08/17 06:55 Attending/Attestation - Attestation I have personally seen and examined this patient.: Yes I have fully participated in the care of the patient.: Yes I have reviewed all pertinent clinical information, including history, physical exam and plan: Yes Notes (Text): 09/11/17 15:01 Medical record note made by the resident after discussion with my direction and input after the patient was personally seen and examined by me. I have reviewed the chart and agree that the record accurately reflects by personal performance of the history, physical exam, data review, and medical decision-making, in the course for the patient. I have also personally directed the plan of care. 76 year old female with history of COPD , CHF secondary to diastolic dysfunction, HTN, PUD, dyslipidemia, hypothyroidism, depression, gout, colonic polyps who presented with cough, dyspnea due to COPD exacerbation.Patient has responded well to Nebulization, steroid and antibiotics.Steroid has been changed to oral.Patient is on base line hypoxia. Patient will be discharged to TCU tomorrow. Management plan was discussed in detail with patient. Education was provided.
[2017-09-11 18:03] VITALS: RESP 19; TEMP 97.7
--- NOTE | 2017-09-12 05:44 | CP.PCM.PN ---
Subjective - Date & Time of Evaluation Date of Evaluation: 09/12/17 Time of Evaluation: 06:40 - Subjective Subjective: Sleeping but easily awaken, no complaints, denies chest pain Reason for consultation and follow up: Cardiac evaluation,chest pain, shortness of breath, CHF, pacemaker, atrial fibrillation Seen and examined by me and Dr. Levine Objective - Vital Signs/Intake and Output Vital Signs (last 24 hours): Temp Pulse Resp BP Pulse Ox 97.7 F 72 19 128/79 95 09/11/17 18:03 09/11/17 18:03 09/11/17 18:03 09/11/17 18:03 09/11/17 18:03 Intake and Output: 09/11/17 09/12/17 18:59 06:59 Intake Total 540 Balance 540 - Medications Medications: Current Medications Acetaminophen (Tylenol 325mg Tab) 650 mg PO Q6H PRN PRN Reason: Headache Last Admin: 09/08/17 18:45 Dose: 650 mg Albuterol/Ipratropium (Duoneb 3 Mg/0.5 Mg (3 Ml) Ud) 3 ml IH Q2H PRN PRN Reason: Shortness of Breath Albuterol/Ipratropium (Duoneb 3 Mg/0.5 Mg (3 Ml) Ud) 3 ml IH [id number] [facility] Last Admin: 09/11/17 20:29 Dose: Not Given Alprazolam (Xanax) 0.25 mg PO BID PRN; Protocol PRN Reason: Anxiety Stop: 09/15/17 09:40 Arformoterol Tartrate (Brovana) 15 mcg IH [id number] [facility] Last Admin: 09/11/17 20:29 Dose: Not Given Aspirin (Ecotrin) 81 mg PO DAILY [facility] Last Admin: 09/11/17 09:23 Dose: 81 mg Atorvastatin Calcium (Lipitor) 10 mg PO DIN [facility] Last Admin: 09/11/17 17:55 Dose: 10 mg Azithromycin (Zithromax) 250 mg PO DAILY [facility] PRN Reason: Protocol Stop: 09/14/17 10:01 Last Admin: 09/11/17 09:21 Dose: 250 mg Budesonide (Pulmicort Respules) 1 mg IH [id number] [facility] Last Admin: 09/11/17 20:29 Dose: Not Given Cholecalciferol (Vitamin D) 1,000 intlu PO DAILY [facility] Last Admin: 09/11/17 09:20 Dose: 1,000 intlu Enoxaparin Sodium (Lovenox) 40 mg SC DAILY [facility] PRN Reason: Protocol Last Admin: 09/11/17 09:21 Dose: 40 mg Furosemide (Lasix) 40 mg PO BID [facility] Last Admin: 09/11/17 17:55 Dose: 40 mg Guaifenesin/Dextromethorphan (Mucinex-Dm 600-30 Mg) 1 tab PO BID [facility] Last Admin: 09/11/17 17:54 Dose: 1 tab Lactobacillus Acidophilus (Bacid Acidophilus) 1 cap PO BID [facility] Last Admin: 09/11/17 17:55 Dose: 1 cap Levothyroxine Sodium (Synthroid) 100 mcg PO DAILY [facility] Last Admin: 09/11/17 09:23 Dose: 100 mcg Metoprolol Tartrate (Lopressor) 50 mg PO QAM [facility] Last Admin: 09/11/17 09:22 Dose: 50 mg Metoprolol Tartrate (Lopressor) 25 mg PO QPM [facility] Last Admin: 09/11/17 17:55 Dose: 25 mg Ondansetron HCl (Zofran Odt) 4 mg PO Q8 PRN PRN Reason: Nausea/Vomiting Pantoprazole Sodium (Protonix Ec Tab) 40 mg PO DAILY [facility] Last Admin: 09/11/17 09:23 Dose: 40 mg Potassium Chloride (K-Dur 20 Meq Er Tab) 20 meq PO BID [facility] Last Admin: 09/11/17 17:54 Dose: 20 meq Prednisone (Prednisone Tab) 40 mg PO DAILY [facility] Stop: 09/16/17 10:01 - Labs Labs: 09/11/17 05:30 09/11/17 05:45 PT 11.4 SECONDS (9.4-12.5) 09/08/17 06:55 INR 0.99 (0.93-1.08) 09/08/17 06:55 APTT 22.9 Seconds (25.1-36.5) L 09/08/17 06:55 - Constitutional Appears: No Acute Distress - ENT Exam ENT Exam: Mucous Membranes Moist - Respiratory Exam Respiratory Exam: Decreased Breath Sounds, Clear to Ausculation Bilateral, NORMAL BREATHING PATTERN Additional comments: NC 2-3 l/min - Cardiovascular Exam Cardiovascular Exam: +S1, +S2 Additional comments: PPM - GI/Abdominal Exam GI & Abdominal Exam: Soft, Normal Bowel Sounds - Extremities Exam Extremities Exam: Normal Capillary Refill Additional comments: 2+edema - Neurological Exam Neurological Exam: Alert, Awake, Oriented x3 - Psychiatric Exam Psychiatric exam: Normal Affect, Normal Mood - Skin Skin Exam: Intact, Normal Color, Warm Assessment and Plan - Assessment and Plan (Free Text) Assessment: A 77 year old female who came in to the ER due to acute onset dyspnea, nausea, substernal chest pain, non radiating, 3.5 days of a productive cough. History of COPD (60 pack year history of smoking), pacemaker, CHF with estimated EF of 62.5% based on 06/11/17 cardiac catheterization, atrial fibrillation, GERD, anxiety, and depression Plan: Clinically improved No evidence of myocardial ischemia Atypical chestpain, exacerbation of COPD Normal troponins Recent cardiac 06/15 normal coronaries, LVEF 65% PPM On ASA 81 mg daily, Lipiyor 10 mg daily,Lovenox 40 mg daily, Lasix 40 mg BID, Synthroid 100 mcg daily, Lopressor 50 mg in AM, Lopressor 25 mg in PM, Kdur 20 meq BID Continue current medications Continue current treatment Will follow up Plan and treatment discussed with Dr. Levine
[2017-09-12 06:50] LABS: BASO # 0.01 K/mm3 (0.0-2.0); BASO % 0.1 % (0.0-3.0); EOS % 0.2 % (1.5-5.0); GRAN # 5.45 (1.4-6.5); GRAN % 65.2 % (50.0-68.0); HEMOGLOBIN 13.8 g/dL (12.0-16.0); LYMPH % 24.2 % (22.0-35.0); MEAN CELL VOLUME 93.3 fl (80.0-105.0); MEAN CORPUSCULAR HEMOGLOBIN 30.7 pg (25.0-35.0); MEAN CORPUSCULAR HGB CONC 32.9 g/dl (31.0-37.0); MONO # 0.9 (0.1-0.6); MONO % 10.3 % (1.0-6.0); RBC 4.49 10^6/uL (3.5-6.1); RED CELL DISTRIBUTION WIDTH 13.9 % (11.5-14.5); WHITE BLOOD COUNT 8.4 10^3/ul (4.5-11.0)
[2017-09-12 07:04] LABS: ALB/GLOB RATIO 1.3 (1.1-1.8); ALBUMIN 3.8 g/dL (3.0-4.8); ALT/SGPT 28 U/L (7-56); AST/SGOT 22 U/L (14-36); BLOOD UREA NITROGEN 37 mg/dL (7-21); CALCIUM 9.5 mg/dL (8.4-10.5); GFR AFRICAN-AMERICAN > 60; GFR NON-AFRICAN AMERICAN > 60
[2017-09-12] MEDS: Arformoterol 15 mcg/2 ml Inh Sol IH SCH (07:21)
[2017-09-12] MEDS: Budesonide 0.5 mg/2 ml Inhal Susp UD IH SCH (07:21)
[2017-09-12] MEDS: Albuterol-Ipratrop 3 mg / 0.5 (3 ml) UD IH SCH ×2 (07:21→07:26)
--- NOTE | 2017-09-12 07:47 | CP.PCM.DIS ---
<Freedom Harper - Last Filed: 09/12/17 12:22> Provider - Provider Date of Admission: 09/09/17 16:05 Attending physician: Jefferson Joe MD Primary care physician: Jefferson Solomon MD Consults: Dr. Solomon Time Spent in preparation of Discharge (in minutes): 35 Hospital Course - Lab Results Lab Results: Most Recent Lab Values WBC 8.4 10^3/ul (4.5-11.0) 09/12/17 05:45 RBC 4.49 10^6/uL (3.5-6.1) 09/12/17 05:45 Hgb 13.8 g/dL (12.0-16.0) 09/12/17 05:45 Hct 41.9 % (36.0-48.0) 09/12/17 05:45 MCV 93.3 fl (80.0-105.0) 09/12/17 05:45 MCH 30.7 pg (25.0-35.0) 09/12/17 05:45 MCHC 32.9 g/dl (31.0-37.0) 09/12/17 05:45 RDW 13.9 % (11.5-14.5) 09/12/17 05:45 Plt Count 216 10^3/uL (120.0-450.0) 09/12/17 05:45 MPV 10.0 fl (7.0-11.0) 09/12/17 05:45 Gran % 65.2 % (50.0-68.0) 09/12/17 05:45 Lymph % (Auto) 24.2 % (22.0-35.0) 09/12/17 05:45 [place] % (Auto) 10.3 % (1.0-6.0) H 09/12/17 05:45 Eos % (Auto) 0.2 % (1.5-5.0) L 09/12/17 05:45 Baso % (Auto) 0.1 % (0.0-3.0) 09/12/17 05:45 Gran # 5.45 (1.4-6.5) 09/12/17 05:45 Lymph # (Auto) 2.0 (1.2-3.4) 09/12/17 05:45 [place] # (Auto) 0.9 (0.1-0.6) H 09/12/17 05:45 Eos # (Auto) 0.0 (0.0-0.7) 09/12/17 05:45 Baso # (Auto) 0.01 K/mm3 (0.0-2.0) 09/12/17 05:45 PT 11.4 SECONDS (9.4-12.5) 09/08/17 06:55 INR 0.99 (0.93-1.08) 09/08/17 06:55 APTT 22.9 Seconds (25.1-36.5) L 09/08/17 06:55 pO2 48 mm/Hg (30-55) 09/08/17 06:55 VBG pH 7.34 (7.32-7.43) 09/08/17 06:55 VBG pCO2 64.0 (40-60) H 09/08/17 06:55 VBG HCO3 34.5 mmol/l (21-28) H 09/08/17 06:55 VBG Total CO2 36.5 mmol.L (22-28) H 09/08/17 06:55 VBG O2 Sat (Calc) 85.7 % (40-65) H 09/08/17 06:55 VBG Base Excess 6.5 mmol/L (0.0-2.0) H 09/08/17 06:55 VBG Potassium 3.9 mmol/L (3.6-5.2) 09/08/17 06:55 Sodium 134.0 mmol/L (132-148) 09/08/17 06:55 Chloride 93.0 mmol/L (98-107) L 09/08/17 06:55 Glucose 143 mg/dl (65-105) H 09/08/17 06:55 Lactate 1.8 mmol/L (0.7-2.1) 09/08/17 06:55 FiO2 21.0 % 09/08/17 06:55 Sodium 143 mmol/L (132-148) 09/12/17 05:45 Potassium 4.1 mmol/L (3.6-5.0) 09/12/17 05:45 Chloride 97 mmol/L (98-107) L 09/12/17 05:45 Carbon Dioxide 36 mmol/L (21-33) H 09/12/17 05:45 Anion Gap 14 (10-20) 09/12/17 05:45 BUN 37 mg/dL (7-21) H 09/12/17 05:45 Creatinine 0.8 mg/dl (0.7-1.2) 09/12/17 05:45 Est GFR ( Amer) > 60 09/12/17 05:45 Est GFR (Non-Af Amer) > 60 09/12/17 05:45 Random Glucose 123 mg/dL (70-110) H 09/12/17 05:45 Calcium 9.5 mg/dL (8.4-10.5) 09/12/17 05:45 Phosphorus 3.2 mg/dL (2.5-4.5) 09/10/17 06:30 Magnesium 2.0 mg/dL (1.7-2.2) 09/10/17 06:30 Total Bilirubin 0.4 mg/dL (0.2-1.3) 09/12/17 05:45 AST 22 U/L (14-36) 09/12/17 05:45 ALT 28 U/L (7-56) 09/12/17 05:45 Alkaline Phosphatase 75 U/L (38-126) 09/12/17 05:45 Lactate Dehydrogenase 454 U/L (333-699) 09/08/17 06:55 Total Creatine Kinase 53 U/L (35-230) 09/08/17 06:55 Troponin I < 0.01 ng/mL 09/08/17 19:31 NT-Pro-B Natriuret Pep 153 pg/mL (0-450) 09/08/17 06:55 Total Protein 6.8 g/dL (5.8-8.3) 09/12/17 05:45 Albumin 3.8 g/dL (3.0-4.8) 09/12/17 05:45 Globulin 3.0 gm/dL 09/12/17 05:45 Albumin/Globulin Ratio 1.3 (1.1-1.8) 09/12/17 05:45 Venous Blood Potassium 3.9 mmol/L (3.6-5.2) 09/08/17 06:55 - Hospital Course Hospital Course: 77 year old female with a past medical history significant for COPD (60 pack year history of smoking), pacemaker, CHF with estimated EF of 62.5% based on cardiac catheterization, atrial fibrillation, GERD, anxiety, and depression who presents with acute onset dyspnea, nausea, substernal chest pain , 3.5 days of a productive cough. She reports having generalized muscle aches as well, but denies fever, chills. She reports the sputum is whitish and yellow. She reports that her diuretic medications were recently modified. She reports the chest pain is substernal, non-radiating, and not associated or related to exertion. No acute infarction, masses or hemorrhage is seen. No acute intracranial abnormality is identified.Diffuse age-related cerebral atrophy and mild chronic microvascular white matter ischemic changes, without evidence of an acute intracranial abnormality. Patient was treated with steroids taper, duonebs, ceftriaxone, and PO azithromycin with improvement in her dyspnea and cough. She was evaluated by physical therapy and recommended to go to the TCU for strengthening and unsteady gait. Cardiology was also consulted and resumed her home medications and started her on daily potassium. She was transferred inhouse to the TCU on . - Date & Time of H&P Date of H&P: 09/12/17 Time of H&P: 09:02 Discharge Exam - Head Exam Head Exam: ATRAUMATIC, NORMOCEPHALIC - Eye Exam Eye Exam: EOMI, Normal appearance - ENT Exam ENT Exam: Mucous Membranes Moist, Normal Oropharynx - Neck Exam Neck exam: Normal Inspection - Respiratory Exam Respiratory Exam: Clear to PA & Lateral, NORMAL BREATHING PATTERN. absent: Accessory Muscle Use - Cardiovascular Exam Cardiovascular Exam: RRR, +S1, +S2 - Extremities Exam Extremities exam: normal inspection - Back Exam Back exam: absent: CVA tenderness (L), CVA tenderness (R) - Neurological Exam Neurological exam: Alert, CN II-XII Intact, Oriented x3 - Psychiatric Exam Psychiatric exam: Normal Affect, Normal Mood - Skin Skin Exam: Dry, Intact, Normal Color, Warm Discharge Plan - Discharge Medications Prescriptions: Albuterol HFA [Ventolin HFA 90 mcg/actuation (8 g)] 2 puff IH [id number] PRN #1 puff PRN Reason: Shortness Of Breath Azithromycin [Z-Deny] 250 mg PO DAILY 5 Days #6 tab - Follow Up Plan Condition: IMPROVED Disposition: TRANSF TO SNF Instructions: COPD Including Emphysema (DC), Exacerbation of COPD (DC) Additional Instructions: 1) Patient to take any prescriptions as directed. 2) Patient to follow up with PMD within one week of discharge. Referrals: Jefferson Solomon MD [Primary Care Provider] - <Jefferson Joe - Last Filed: 09/12/17 14:36> Provider - Provider Date of Admission: 09/09/17 16:05 Attending physician: Jefferson Joe MD Primary care physician: Jefferson Solomon MD Hospital Course - Lab Results Lab Results: Most Recent Lab Values WBC 8.4 10^3/ul (4.5-11.0) 09/12/17 05:45 RBC 4.49 10^6/uL (3.5-6.1) 09/12/17 05:45 Hgb 13.8 g/dL (12.0-16.0) 09/12/17 05:45 Hct 41.9 % (36.0-48.0) 09/12/17 05:45 MCV 93.3 fl (80.0-105.0) 09/12/17 05:45 MCH 30.7 pg (25.0-35.0) 09/12/17 05:45 MCHC 32.9 g/dl (31.0-37.0) 09/12/17 05:45 RDW 13.9 % (11.5-14.5) 09/12/17 05:45 Plt Count 216 10^3/uL (120.0-450.0) 09/12/17 05:45 MPV 10.0 fl (7.0-11.0) 09/12/17 05:45 Gran % 65.2 % (50.0-68.0) 09/12/17 05:45 Lymph % (Auto) 24.2 % (22.0-35.0) 09/12/17 05:45 [place] % (Auto) 10.3 % (1.0-6.0) H 09/12/17 05:45 Eos % (Auto) 0.2 % (1.5-5.0) L 09/12/17 05:45 Baso % (Auto) 0.1 % (0.0-3.0) 09/12/17 05:45 Gran # 5.45 (1.4-6.5) 09/12/17 05:45 Lymph # (Auto) 2.0 (1.2-3.4) 09/12/17 05:45 [place] # (Auto) 0.9 (0.1-0.6) H 09/12/17 05:45 Eos # (Auto) 0.0 (0.0-0.7) 09/12/17 05:45 Baso # (Auto) 0.01 K/mm3 (0.0-2.0) 09/12/17 05:45 PT 11.4 SECONDS (9.4-12.5) 09/08/17 06:55 INR 0.99 (0.93-1.08) 09/08/17 06:55 APTT 22.9 Seconds (25.1-36.5) L 09/08/17 06:55 pO2 48 mm/Hg (30-55) 09/08/17 06:55 VBG pH 7.34 (7.32-7.43) 09/08/17 06:55 VBG pCO2 64.0 (40-60) H 09/08/17 06:55 VBG HCO3 34.5 mmol/l (21-28) H 09/08/17 06:55 VBG Total CO2 36.5 mmol.L (22-28) H 09/08/17 06:55 VBG O2 Sat (Calc) 85.7 % (40-65) H 09/08/17 06:55 VBG Base Excess 6.5 mmol/L (0.0-2.0) H 09/08/17 06:55 VBG Potassium 3.9 mmol/L (3.6-5.2) 09/08/17 06:55 Sodium 134.0 mmol/L (132-148) 09/08/17 06:55 Chloride 93.0 mmol/L (98-107) L 09/08/17 06:55 Glucose 143 mg/dl (65-105) H 09/08/17 06:55 Lactate 1.8 mmol/L (0.7-2.1) 09/08/17 06:55 FiO2 21.0 % 09/08/17 06:55 Sodium 143 mmol/L (132-148) 09/12/17 05:45 Potassium 4.1 mmol/L (3.6-5.0) 09/12/17 05:45 Chloride 97 mmol/L (98-107) L 09/12/17 05:45 Carbon Dioxide 36 mmol/L (21-33) H 09/12/17 05:45 Anion Gap 14 (10-20) 09/12/17 05:45 BUN 37 mg/dL (7-21) H 09/12/17 05:45 Creatinine 0.8 mg/dl (0.7-1.2) 09/12/17 05:45 Est GFR ( Amer) > 60 09/12/17 05:45 Est GFR (Non-Af Amer) > 60 09/12/17 05:45 Random Glucose 123 mg/dL (70-110) H 09/12/17 05:45 Calcium 9.5 mg/dL (8.4-10.5) 09/12/17 05:45 Phosphorus 3.2 mg/dL (2.5-4.5) 09/10/17 06:30 Magnesium 2.0 mg/dL (1.7-2.2) 09/10/17 06:30 Total Bilirubin 0.4 mg/dL (0.2-1.3) 09/12/17 05:45 AST 22 U/L (14-36) 09/12/17 05:45 ALT 28 U/L (7-56) 09/12/17 05:45 Alkaline Phosphatase 75 U/L (38-126) 09/12/17 05:45 Lactate Dehydrogenase 454 U/L (333-699) 09/08/17 06:55 Total Creatine Kinase 53 U/L (35-230) 09/08/17 06:55 Troponin I < 0.01 ng/mL 09/08/17 19:31 NT-Pro-B Natriuret Pep 153 pg/mL (0-450) 09/08/17 06:55 Total Protein 6.8 g/dL (5.8-8.3) 09/12/17 05:45 Albumin 3.8 g/dL (3.0-4.8) 09/12/17 05:45 Globulin 3.0 gm/dL 09/12/17 05:45 Albumin/Globulin Ratio 1.3 (1.1-1.8) 09/12/17 05:45 25-OH Vitamin D Total 27.7 NG/ML (30.0-100.0) L 09/12/17 08:30 Venous Blood Potassium 3.9 mmol/L (3.6-5.2) 09/08/17 06:55 Attending/Attestation - Attestation I have personally seen and examined this patient.: Yes I have fully participated in the care of the patient.: Yes I have reviewed all pertinent clinical information, including history, physical exam and plan: Yes Notes (Text): 09/12/17 14:32 Medical record note made by the resident after discussion with my direction and input after the patient was personally seen and examined by me. I have reviewed the chart and agree that the record accurately reflects by personal performance of the history, physical exam, data review, and medical decision-making, in the course for the patient. I have also personally directed the plan of care. 76 year old female with history of COPD , CHF secondary to diastolic dysfunction , HTN, PUD, dyslipidemia, hypothyroidism, depression, gout, colonic polyps who presented with cough, dyspnea due to COPD exacerbation.Patient has responded well to Nebulization, steroid and antibiotics.Her dyspnea is improved.She is still having dry cough but has improved. Patient will be discharged to TCU for rehabilitation. Management plan was discussed in detail with patient. Education was provided.
[2017-09-12] MEDS: Pantoprazole 40 mg EC Tab PO SCH (10:43)
[2017-09-12] MEDS: Potassium Chloride 20 mEq ER Tab PO SCH (10:44)
[2017-09-12] MEDS: guaiFENesin-DM 600-30 mg ER Tab PO SCH (10:44)
[2017-09-12] MEDS: Levothyroxine 100 MCG TAB PO SCH (10:44)
[2017-09-12] MEDS: Lactobacillus Acidophilus 500 MU Cap PO SCH (10:45)
[2017-09-12] MEDS: Enoxaparin 40 mg Syringe SC SCH (10:47)
[2017-09-12] MEDS: Cholecalciferol 1,000 INTLU TAB PO SCH (10:47)
[2017-09-12 10:50] VITALS: BP 123/88; PULSE 74
[2017-09-12] MEDS ORDERED: Acetylcysteine 20% Inhal Soln (4ml) IH SCH (14:00)
[2017-09-12] MEDS ORDERED: Budesonide 0.5 mg/2 ml Inhal Susp UD IH SCH (20:00)
== END 2017-09-12 13:30 | DRG 191 ==
LOC: ED 06:11 → ERH 08:08 → 2RNO 10:07 → OBSVTOIN 09-09 16:05 → 3RSO 09-09 16:57
PROVIDERS: ADMIT Internal Medicine; ATTEND Internal Medicine
PROC: 3E0F7GC Introduction of Other Therapeutic Substance into Respiratory Tract, Via Natural or Artificial Opening (ICD-10-PCS; principal; 2017-09-08)
DX: J44.1 Chronic obstructive pulmonary disease with (acute) exacerbation (principal); I50.32 Chronic diastolic (congestive) heart failure; L03.115 Cellulitis of right lower limb; L03.116 Cellulitis of left lower limb; I11.0 Hypertensive heart disease with heart failure; I25.10 Atherosclerotic heart disease of native coronary artery without angina pectoris; K21.9 Gastro-esophageal reflux disease without esophagitis; I48.91 Unspecified atrial fibrillation; F41.9 Anxiety disorder, unspecified; E03.9 Hypothyroidism, unspecified; E78.5 Hyperlipidemia, unspecified; I27.20 Pulmonary hypertension, unspecified; I08.3 Combined rheumatic disorders of mitral, aortic and tricuspid valves; Z99.81 Dependence on supplemental oxygen; M10.9 Gout, unspecified; F32.9 Major depressive disorder, single episode, unspecified; E11.9 Type 2 diabetes mellitus without complications; E66.9 Obesity, unspecified; Z68.33 Body mass index [BMI] 33.0-33.9, adult; Z87.11 Personal history of peptic ulcer disease; Z86.010 Personal history of colon polyps; Z95.0 Presence of cardiac pacemaker

== ENCOUNTER 2017-09-12 13:31 | Inpatient (IN) | payer OTHER ==
[2017-09-12 14:04] VITALS: BMI 33.7
[2017-09-12] MEDS: Lactobacillus Acidophilus 500 MU Cap PO SCH (17:48)
[2017-09-12] MEDS: Potassium Chloride 20 mEq ER Tab PO SCH (17:49)
[2017-09-12] MEDS ORDERED: Pneumococcal 23-Valent Vaccine IM ONE (20:45)
[2017-09-12] MEDS: Budesonide 0.5 mg/2 ml Inhal Susp UD IH SCH ×2 (21:34→22:10)
[2017-09-12] MEDS: Albuterol-Ipratrop 3 mg / 0.5 (3 ml) UD IH SCH (21:34)
[2017-09-12] MEDS: Acetylcysteine 20% Inhal Soln (4ml) IH SCH (21:35)
[2017-09-13] MEDS: Acetylcysteine 20% Inhal Soln (4ml) IH SCH ×4 (03:04→19:20)
[2017-09-13] MEDS: Albuterol-Ipratrop 3 mg / 0.5 (3 ml) UD IH SCH ×2 (03:04→07:41)
[2017-09-13] MEDS: Enoxaparin 40 mg Syringe SC SCH (06:26)
[2017-09-13] MEDS: Levothyroxine 100 MCG TAB PO SCH (06:27)
[2017-09-13] MEDS: Pantoprazole 40 mg EC Tab PO SCH (06:28)
--- NOTE | 2017-09-13 06:58 | CP.PCM.HP ---
<Freedom Harper - Last Filed: 09/13/17 11:31> History of Present Illness - History of Present Illness History of Present Illness: 77 year old female with a past medical history significant for COPD (60 pack year history of smoking), pacemaker, CHF with estimated EF of 62.5% based on cardiac catheterization, atrial fibrillation, GERD, anxiety, and depression who presents with acute onset dyspnea, nausea, substernal chest pain , 3.5 days of a productive cough. She reports having generalized muscle aches as well, but denies fever, chills. She reports the sputum is whitish and yellow. She reports that her diuretic medications were recently modified. She reports the chest pain is substernal, non-radiating, and not associated or related to exertion. No acute infarction, masses or hemorrhage is seen. No acute intracranial abnormality is identified.Diffuse age-related cerebral atrophy and mild chronic microvascular white matter ischemic changes, without evidence of an acute intracranial abnormality. Patient was treated with steroids taper, duonebs, ceftriaxone, and PO azithromycin with improvement in her dyspnea and cough. She was evaluated by physical therapy and recommended to go to the TCU for strengthening and unsteady gait. Cardiology was also consulted and resumed her home medications and started her on daily potassium. She was transferred inhouse to the TCU on . While in the TCU her medications will be resumed. She will have assistance with ambulation and will regain strength and walk. Today, the patient complains of dry cough and feeling jittery after receiving her Duonebulized treatments. She denies nausea, vomiting, fever, chills, diarrhea, Otherwise, 12 point review of systems in negative. Present on Admission - Present on Admission Any Indicators Present on Admission: No Review of Systems - Review of Systems All systems: reviewed and no additional remarkable complaints except (as per HPI ) Past Patient History - Infectious Disease Hx of Infectious Diseases: None - Tetanus Immunizations Tetanus Immunization: Unknown - Past Medical History & Family History Past Medical History?: Yes - Past Social History Smoking Status: Former Smoker - CARDIAC Hx Cardiac Disorders: Yes - PULMONARY Hx Chronic Obstructive Pulmonary Disease (COPD): Yes - NEUROLOGICAL Hx Neurological Disorder: No - HEENT Hx HEENT Problems: No - RENAL Hx Chronic Kidney Disease: No - ENDOCRINE/METABOLIC Hx Endocrine Disorders: Yes - HEMATOLOGICAL/ONCOLOGICAL Hx Blood Disorders: No - INTEGUMENTARY Hx Dermatological Problems: Yes Other/Comment: BILATERAL LEG EDEMA +2 FLUSHED DRY SCALY SKIN. - MUSCULOSKELETAL/RHEUMATOLOGICAL Hx Falls: Yes (past) - GASTROINTESTINAL Hx Gastrointestinal Disorders: Yes (hx reflux/colon polyps) - GENITOURINARY/GYNECOLOGICAL Hx Genitourinary Disorders: (incontinent) Hx Reproductive Disorders: No - PSYCHIATRIC Hx Psychophysiologic Disorder: Yes Hx Anxiety: Yes Hx Depression: Yes Hx Substance Use: No - SURGICAL HISTORY Hx Surgeries: Yes (CARD CATH) Hx Orthopedic Surgery: Yes (Right knee sx) - ANESTHESIA Hx Anesthesia: Yes Meds Allergies/Adverse Reactions: Allergies Allergy/AdvReac Type Severity Reaction Status Date / Time levofloxacin [From Levaquin] Allergy Severe ANAPHYLAXIS Verified 09/08/17 21:55 Physical Exam - Constitutional Appears: Well, Non-toxic - Head Exam Head Exam: ATRAUMATIC, NORMOCEPHALIC - Eye Exam Eye Exam: EOMI, Normal appearance - ENT Exam ENT Exam: Mucous Membranes Moist, Normal Oropharynx - Neck Exam Neck exam: Positive for: Normal Inspection - Respiratory Exam Respiratory Exam: Clear to Auscultation Bilateral, Prolonged Expiratory Phase, NORMAL BREATHING PATTERN. absent: Accessory Muscle Use - Cardiovascular Exam Cardiovascular Exam: RRR, +S1, +S2 - GI/Abdominal Exam GI & Abdominal Exam: absent: Guarding, Rebound - Extremities Exam Extremities exam: Positive for: normal inspection. Negative for: calf tenderness - Neurological Exam Neurological exam: Alert, CN II-XII Intact, Oriented x3 - Psychiatric Exam Psychiatric exam: Normal Affect, Normal Mood - Skin Skin Exam: Dry, Intact, Normal Color, Warm Results - Vital Signs Recent Vital Signs: Last Vital Signs Temp 98.2 F 09/12/17 20:34 Pulse 61 09/12/17 20:34 Resp 18 09/12/17 20:34 BP 110/60 09/13/17 06:27 Pulse Ox Assessment & Plan - Assessment and Plan (Free Text) Assessment: 77 year old female with a past medical history of COPD (on 2-3L of oxygen at home), chronic lower extremity edema, diastolic HF, pacemaker, GERD, who presents with acute onset dyspnea, chest pain, and a 3.5 days of a productive cough. Treated on the medical floor and now in the TCU for strengthening and gait instability. Plan: 1) COPD exacerbation - Ipratropium q6h [facility] - Mucomyst - Budesonide 1 mg IH q12h - Aformoterol 15 mcg IH q12h Resp - Prednisone taper - Azithromycin started today; 500 once, 250 for a total of four days - Chest X-ray shows no infiltrate - Oxygen via NC with target SpO2 90-92% 2) Chest pain - EKG negative for ischemia - Troponin (-) x3; - Cardiology, Dr. Solomon/mario consulted, appreciate recommendations - Enteric coated aspirin 81 mg PO daily - CT head shows no acute infarction, masses or hemorrhage is seen. No acute intracranial abnormality is identified. Diffuse age-related cerebral atrophy and mild chronic microvascular white matter ischemic changes, without evidence of an acute intracranial abnormality. 3) Diastolic CHF with chronic lower extremity edema - Continue with Lasix 40 mg PO BID - Metoprolol Tartarate 50 in AM and 25 in PM - Cardiology recommendations appreciated. 4) GERD/dyspepsia/nausea - Continue Esomeprazole - Zofran PRN 5) Anxiety - Xanax 0.25 BID 6) Hypothryoidism - Synthroid 100 mcg PO daily 7) Vitamin D deficieny - 1,000 IU daily 8) GI/DVT prophylaxis/Disposition - Continue with Esomeprazole - Lovenox 40 mg SC - HHD diet - PT recommends TCU 9) Weakness and gait instability - TCU for PT and rehabilitation Case reviewed and discussed with Dr. Fadia Joe - Date & Time Date: 09/13/17 Time: 10:25 Decision To Admit - . Bed Request Type: TRCU <Jefferson Joe - Last Filed: 09/13/17 15:29> Results - Vital Signs Recent Vital Signs: Last Vital Signs Temp 98.2 F 09/12/17 20:34 Pulse 96 H 09/13/17 08:55 Resp 18 09/12/17 20:34 BP 96/64 L 09/13/17 08:55 Pulse Ox Attending/Attestation - Attestation I have personally seen and examined this patient.: Yes I have fully participated in the care of the patient.: Yes I have reviewed all pertinent clinical information: Yes Notes (Text): 09/13/17 15:26 Medical record note made by the resident after discussion with my direction and input after the patient was personally seen and examined by me. I have reviewed the chart and agree that the record accurately reflects by personal performance of the history, physical exam, data review, and medical decision-making, in the course for the patient. I have also personally directed the plan of care. 76 year old female with history of COPD , CHF secondary to diastolic dysfunction , HTN, PUD, dyslipidemia, hypothyroidism, depression, gout, colonic polyps who presented with cough, dyspnea due to COPD exacerbation.Patient has responded well to Nebulization, steroid and antibiotics.Her dyspnea is improved. Patient is admitted to TCU for rehabilitation.Due to H/O tremor with albuterol, we will discontinue albuterol Nebs, continue atroven and PRN albuterol inhaler. Continue tapering dose of prednisone. Blood pressure is low today, patient is asymptomatic, we will monitor, we will reduce dose of lasix to 40 mg once a day. Management plan was discussed in detail with patient. Education was provided.
[2017-09-13] MEDS: Budesonide 0.5 mg/2 ml Inhal Susp UD IH SCH ×2 (07:42→19:54)
[2017-09-13] MEDS: Potassium Chloride 20 mEq ER Tab PO SCH ×2 (08:30→17:50)
[2017-09-13] MEDS ORDERED: Albuterol HFA 90 mcg/actuation (8 g) IH PRN (08:47)
[2017-09-13] MEDS ORDERED: Albuterol 0.083% Inhal Sol (2.5 mg/3 mL) UD IH PRN ×2 (08:52→08:53)
[2017-09-13] MEDS: Lactobacillus Acidophilus 500 MU Cap PO SCH ×2 (09:37→17:49)
[2017-09-13] MEDS: Cholecalciferol 1,000 INTLU TAB PO SCH (09:37)
[2017-09-13] MEDS: Ipratropium 0.02% Inhal Soln (0.5 mg/2.5 ml) UD IH SCH ×2 (13:24→19:52)
[2017-09-14] MEDS: Pantoprazole 40 mg EC Tab PO SCH (05:41)
[2017-09-14] MEDS: Enoxaparin 40 mg Syringe SC SCH (05:42)
[2017-09-14] MEDS: Levothyroxine 100 MCG TAB PO SCH (05:42)
[2017-09-14] MEDS: Ipratropium 0.02% Inhal Soln (0.5 mg/2.5 ml) UD IH SCH ×3 (07:36→19:57)
[2017-09-14] MEDS: Acetylcysteine 20% Inhal Soln (4ml) IH SCH ×3 (07:36→19:57)
[2017-09-14] MEDS: Budesonide 0.5 mg/2 ml Inhal Susp UD IH SCH ×2 (07:36→19:57)
[2017-09-14] MEDS: Potassium Chloride 20 mEq ER Tab PO SCH ×2 (10:23→17:56)
[2017-09-14] MEDS: Lactobacillus Acidophilus 500 MU Cap PO SCH ×2 (10:26→17:56)
[2017-09-14] MEDS: Cholecalciferol 1,000 INTLU TAB PO SCH (10:27)
[2017-09-15] MEDS: Acetylcysteine 20% Inhal Soln (4ml) IH SCH ×3 (01:49→21:00)
[2017-09-15] MEDS: Ipratropium 0.02% Inhal Soln (0.5 mg/2.5 ml) UD IH SCH ×4 (01:49→21:00)
[2017-09-15] MEDS: Pantoprazole 40 mg EC Tab PO SCH (05:58)
[2017-09-15] MEDS: Levothyroxine 100 MCG TAB PO SCH (05:58)
[2017-09-15] MEDS: Enoxaparin 40 mg Syringe SC SCH (05:58)
--- NOTE | 2017-09-15 06:01 | CP.PCM.CON ---
History of Present Illness - History of Present Illness History of Present Illness: Lying in bed, no distress,denies chest pain,denies shortness of breath Reason for consultation: Continuity of care in TCU.shortness of breath, chest pain, COPD, Pacemaker, GERD Brief history of present illness: A 77 year old female who came to the ER due to shortness of breath and substernal chest pain at rest, non radiating, 3.5 days of productive cough. sputum is whitish to yellow. History of COPD (60 pack year history of smoking), pacemaker, CHF , atrial fibrillation, GERD, anxiety, and depression. Cardiac work up was done earlier this year (May 2017) had abnormal stress test thus cardiac catheterization was done. Results were normal coronaries with LVEF of 65%. With this admission, she had exacerbation of COPD. Patient was treated with steroids taper, duonebs, ceftriaxone, and PO azithromycin with improvement in her dyspnea and cough. She was evaluated by physical therapy and recommended to go to the TCU for strengthening and unsteady gait. Seen and examined by me and Dr. Levine Review of Systems - Constitutional Constitutional: As Per HPI - EENT Additional comments: denies problems - Cardiovascular Cardiovascular: As Per HPI Additional comments: denies chest pain, denies shortness of breath - Respiratory Respiratory: As Per HPI - Gastrointestinal Additional comments: denies nausea,denies vomiting - Neurological Additional comments: denies problems Past Patient History - Infectious Disease Hx of Infectious Diseases: None - Tetanus Immunizations Tetanus Immunization: Unknown - Past Medical History & Family History Past Medical History?: Yes - Past Social History Smoking Status: Former Smoker - CARDIAC Hx Cardiac Disorders: Yes - PULMONARY Hx Chronic Obstructive Pulmonary Disease (COPD): Yes - NEUROLOGICAL Hx Neurological Disorder: No - HEENT Hx HEENT Problems: No - RENAL Hx Chronic Kidney Disease: No - ENDOCRINE/METABOLIC Hx Endocrine Disorders: Yes - HEMATOLOGICAL/ONCOLOGICAL Hx Blood Disorders: No - INTEGUMENTARY Hx Dermatological Problems: Yes Other/Comment: BILATERAL LEG EDEMA +2 FLUSHED DRY SCALY SKIN. - MUSCULOSKELETAL/RHEUMATOLOGICAL Hx Falls: Yes (past) - GASTROINTESTINAL Hx Gastrointestinal Disorders: Yes (hx reflux/colon polyps) - GENITOURINARY/GYNECOLOGICAL Hx Genitourinary Disorders: (incontinent) Hx Reproductive Disorders: No - PSYCHIATRIC Hx Psychophysiologic Disorder: Yes Hx Anxiety: Yes Hx Depression: Yes Hx Substance Use: No - SURGICAL HISTORY Hx Surgeries: Yes (CARD CATH) Hx Orthopedic Surgery: Yes (Right knee sx) - ANESTHESIA Hx Anesthesia: Yes Meds Allergies/Adverse Reactions: Allergies Allergy/AdvReac Type Severity Reaction Status Date / Time levofloxacin [From Levaquin] Allergy Severe ANAPHYLAXIS Verified 09/08/17 21:55 - Medications Medications: Current Medications Acetaminophen (Tylenol 325mg Tab) 650 mg PO Q6H PRN; Protocol PRN Reason: Headache Acetylcysteine (Acetylcysteine 20%) 4 ml IH [id number] GRETEL PRN Reason: Protocol Last Admin: 09/15/17 01:49 Dose: Not Given Albuterol Sulfate (Albuterol 0.083% Inhal [place] (2.5 Mg/3 Ml) Ud) 2.5 mg IH [id number] PRN PRN Reason: Shortness of Breath Alprazolam (Xanax) 0.25 mg PO BID PRN; Protocol PRN Reason: Anxiety Stop: 09/19/17 14:05 Last Admin: 09/14/17 21:31 Dose: 0.25 mg Aspirin (Ecotrin) 81 mg PO 0800 GRETEL PRN Reason: Protocol Last Admin: 09/14/17 10:24 Dose: 81 mg Atorvastatin Calcium (Lipitor) 10 mg PO DIN GRETEL PRN Reason: Protocol Last Admin: 09/14/17 17:56 Dose: 10 mg Azithromycin (Zithromax) 250 mg PO DAILY GRETEL PRN Reason: Protocol Stop: 09/15/17 11:00 Last Admin: 09/14/17 10:27 Dose: 250 mg Benzonatate (Tessalon Perles) 100 mg PO TID GRETEL PRN Reason: Protocol Last Admin: 09/14/17 17:57 Dose: 100 mg Budesonide (Pulmicort Respules) 1 mg IH [id number] GRETEL PRN Reason: Protocol Last Admin: 09/14/17 19:57 Dose: 1 mg Cholecalciferol (Vitamin D) 1,000 intlu PO DAILY GRETEL PRN Reason: Protocol Last Admin: 09/14/17 10:27 Dose: 1,000 intlu Enoxaparin Sodium (Lovenox) 40 mg SC 0630 GRETEL PRN Reason: Protocol Last Admin: 09/14/17 05:42 Dose: 40 mg Furosemide (Lasix) 40 mg PO BID GRETEL PRN Reason: Protocol Last Admin: 09/14/17 17:57 Dose: 40 mg Ipratropium [place] (Atrovent) 0.5 mg IH [id number] [facility] Last Admin: 09/15/17 01:49 Dose: Not Given Lactobacillus Acidophilus (Bacid Acidophilus) 1 cap PO BID GRETEL PRN Reason: Protocol Last Admin: 09/14/17 17:56 Dose: 1 cap Levothyroxine Sodium (Synthroid) 100 mcg PO 0630 GRETEL PRN Reason: Protocol Last Admin: 09/14/17 05:42 Dose: 100 mcg Metoprolol Tartrate (Lopressor) 25 mg PO 1800 GRETEL PRN Reason: Protocol Last Admin: 09/14/17 17:56 Dose: 25 mg Metoprolol Tartrate (Lopressor) 50 mg PO 0800 [facility] PRN Reason: Protocol Last Admin: 09/14/17 10:24 Dose: 50 mg Ondansetron HCl (Zofran Odt) 4 mg PO Q8 PRN; Protocol PRN Reason: Nausea/Vomiting Pantoprazole Sodium (Protonix Ec Tab) 40 mg PO 0600 [facility] PRN Reason: Protocol Last Admin: 09/14/17 05:41 Dose: 40 mg Potassium Chloride (K-Dur 20 Meq Er Tab) 20 meq PO 0730,1800 [facility] Last Admin: 09/14/17 17:56 Dose: 20 meq Prednisone (Prednisone Tab) 20 mg PO 0800 [facility] PRN Reason: Protocol Last Admin: 09/14/17 10:39 Dose: 20 mg Physical Exam - Constitutional Appears: No Acute Distress - Eye Exam Eye Exam: Normal appearance - ENT Exam ENT Exam: Mucous Membranes Moist - Respiratory Exam Respiratory Exam: Clear to Auscultation Bilateral, NORMAL BREATHING PATTERN - Cardiovascular Exam Cardiovascular Exam: +S1, +S2 - GI/Abdominal Exam GI & Abdominal Exam: Normal Bowel Sounds, Soft - Extremities Exam Extremities exam: Positive for: normal capillary refill - Neurological Exam Neurological exam: Alert, Oriented x3 - Psychiatric Exam Psychiatric exam: Normal Affect, Normal Mood - Skin Skin Exam: Intact, Normal Color, Warm Results - Vital Signs Recent Vital Signs: Last Vital Signs Temp 97.6 F 09/14/17 16:00 Pulse 61 09/14/17 17:56 Resp 20 09/14/17 20:00 BP 123/77 09/14/17 17:57 Pulse Ox 100 09/14/17 20:00 Assessment & Plan - Assessment and Plan (Free Text) Assessment: A 77 year old female who came to the ER due to shortness of breath and substernal chest pain at rest, non radiating, 3.5 days of productive cough. sputum is whitish to yellow. History of COPD (60 pack year history of smoking) , pacemaker, CHF , atrial fibrillation, GERD, anxiety, and depression. Cardiac work up was done earlier this year (May 2017) had abnormal stress test thus cardiac catheterization was done. Results were normal coronaries with LVEF of 65%. With this admission, she had exacerbation of COPD. Patient was treated with steroids taper, duonebs, ceftriaxone, and PO azithromycin with improvement in her dyspnea and cough. She was evaluated by physical therapy and recommended to go to the TCU for strengthening and unsteady gait. Plan: Continue Physical therapy Cardiac status stable Fall precaution On ASA 81 mg daily,Lipitor 10 mg daily,Lopressor 50 mg daily at AM and 25 mg daily PM Lasix 40 mg BID,Kdur 20 meq BID Continue current medications Continue current treatment Discharge planning Will follow up Plan and treatment discussed with Dr. Levine Thank you Dr. Joe for the opportunity of taking care of Ms. Cinthya Kimball
[2017-09-15] MEDS: Budesonide 0.5 mg/2 ml Inhal Susp UD IH SCH ×2 (07:35→21:00)
[2017-09-15 08:08] LABS: BLOOD UREA NITROGEN 29 mg/dL (7-21); CALCIUM 9.5 mg/dL (8.4-10.5); GFR AFRICAN-AMERICAN > 60; GFR NON-AFRICAN AMERICAN > 60
[2017-09-15] MEDS: Potassium Chloride 20 mEq ER Tab PO SCH ×2 (08:18→17:19)
[2017-09-15] MEDS: Lactobacillus Acidophilus 500 MU Cap PO SCH ×2 (10:41→17:18)
[2017-09-15] MEDS: Cholecalciferol 1,000 INTLU TAB PO SCH (10:42)
--- NOTE | 2017-09-15 11:45 | CP.PCM.PN ---
<Fabio Arias - Last Filed: 09/15/17 12:03> Subjective - Date & Time of Evaluation Date of Evaluation: 09/15/17 Time of Evaluation: 11:38 - Subjective Subjective: Patient seen and examined at bedside. Doing well with no complaints at this time. Able to participate in PT without an issue. Breathing improved. Objective - Vital Signs/Intake and Output Vital Signs (last 24 hours): Temp Pulse Resp BP Pulse Ox 97.8 F 64 16 111/58 L 100 09/15/17 06:00 09/15/17 08:18 09/15/17 06:00 09/15/17 10:41 09/14/17 20:00 - Medications Medications: Current Medications Acetaminophen (Tylenol 325mg Tab) 650 mg PO Q6H PRN; Protocol PRN Reason: Headache Acetylcysteine (Acetylcysteine 20%) 4 ml IH [id number] GRETEL PRN Reason: Protocol Last Admin: 09/15/17 07:34 Dose: Not Given Albuterol Sulfate (Albuterol 0.083% Inhal [place] (2.5 Mg/3 Ml) Ud) 2.5 mg IH [id number] PRN PRN Reason: Shortness of Breath Alprazolam (Xanax) 0.25 mg PO BID PRN; Protocol PRN Reason: Anxiety Stop: 09/19/17 14:05 Last Admin: 09/14/17 21:31 Dose: 0.25 mg Aspirin (Ecotrin) 81 mg PO 0800 GRETEL PRN Reason: Protocol Last Admin: 09/15/17 08:18 Dose: 81 mg Atorvastatin Calcium (Lipitor) 10 mg PO DIN GRETEL PRN Reason: Protocol Last Admin: 09/14/17 17:56 Dose: 10 mg Benzonatate (Tessalon Perles) 100 mg PO TID GRETEL PRN Reason: Protocol Last Admin: 09/15/17 10:42 Dose: 100 mg Budesonide (Pulmicort Respules) 1 mg IH [id number] GRETEL PRN Reason: Protocol Last Admin: 09/15/17 07:35 Dose: 1 mg Cholecalciferol (Vitamin D) 1,000 intlu PO DAILY GRETEL PRN Reason: Protocol Last Admin: 09/15/17 10:42 Dose: 1,000 intlu Enoxaparin Sodium (Lovenox) 40 mg SC 0630 GRETEL PRN Reason: Protocol Last Admin: 09/15/17 05:58 Dose: 40 mg Furosemide (Lasix) 40 mg PO BID GRETEL PRN Reason: Protocol Last Admin: 09/15/17 10:41 Dose: 40 mg Ibuprofen (Motrin Tab) 400 mg PO Q6H PRN PRN Reason: Pain, moderate (4-7) Ipratropium [place] (Atrovent) 0.5 mg IH [id number] [facility] Last Admin: 09/15/17 07:35 Dose: 0.5 mg Lactobacillus Acidophilus (Bacid Acidophilus) 1 cap PO BID GRETEL PRN Reason: Protocol Last Admin: 09/15/17 10:41 Dose: 1 cap Levothyroxine Sodium (Synthroid) 100 mcg PO 0630 GRETEL PRN Reason: Protocol Last Admin: 09/15/17 05:58 Dose: 100 mcg Metoprolol Tartrate (Lopressor) 25 mg PO 1800 GRETEL PRN Reason: Protocol Last Admin: 09/14/17 17:56 Dose: 25 mg Metoprolol Tartrate (Lopressor) 50 mg PO 0800 [facility] PRN Reason: Protocol Last Admin: 09/15/17 08:18 Dose: 50 mg Ondansetron HCl (Zofran Odt) 4 mg PO Q8 PRN; Protocol PRN Reason: Nausea/Vomiting Pantoprazole Sodium (Protonix Ec Tab) 40 mg PO 0600 GRETEL PRN Reason: Protocol Last Admin: 09/15/17 05:58 Dose: 40 mg Potassium Chloride (K-Dur 20 Meq Er Tab) 20 meq PO 0730,1800 [facility] Last Admin: 09/15/17 08:18 Dose: 20 meq Prednisone (Prednisone Tab) 20 mg PO 0800 [facility] PRN Reason: Protocol Last Admin: 09/15/17 08:18 Dose: 20 mg - Labs Labs: 09/15/17 07:00 - Constitutional Appears: Well - Head Exam Head Exam: ATRAUMATIC, NORMAL INSPECTION, NORMOCEPHALIC - Eye Exam Eye Exam: EOMI, Normal appearance, PERRL Pupil Exam: NORMAL ACCOMODATION, PERRL - ENT Exam ENT Exam: Mucous Membranes Moist, Normal Exam - Neck Exam Neck Exam: Full ROM, Normal Inspection. absent: Lymphadenopathy - Respiratory Exam Respiratory Exam: Clear to Ausculation Bilateral, NORMAL BREATHING PATTERN - Cardiovascular Exam Cardiovascular Exam: REGULAR RHYTHM, +S1, +S2. absent: Murmur - GI/Abdominal Exam GI & Abdominal Exam: Soft, Normal Bowel Sounds. absent: Distended, Tenderness - Extremities Exam Extremities Exam: Full ROM, Normal Capillary Refill, Normal Inspection. absent : Joint Swelling, Pedal Edema - Back Exam Back Exam: NORMAL INSPECTION - Neurological Exam Neurological Exam: Alert, Awake, CN II-XII Intact, Normal Gait, Oriented x3 - Psychiatric Exam Psychiatric exam: Normal Affect, Normal Mood - Skin Skin Exam: Dry, Intact, Normal Color, Warm Assessment and Plan - Assessment and Plan (Free Text) Assessment: COPD exacerbation Ipratropium q6h Budesonide 1 mg IH q12h Aformoterol 15 mcg IH q12h Resp Azithromycin started today; 500 once, 250 for a total of four days Chest pain Cards (Sandu) EKG shows no ST changes or arrythmogenic intervals aspirin 81 mg PO daily Diastolic CHF Lasix 40 mg PO BID Metoprolol Tartarate 50 in AM and 25 in PM GERD omeprazole Zofran PRN Anxiety Xanax 0.25 BID Hypothryoidism Synthroid 100 mcg PO daily Vitamin D deficiency 1,000 IU daily GI/DVT prophylaxis/Disposition omeprazole Lovenox 40 mg SC HHD diet PT recommends TCU Weakness and gait instability TCU for PT and rehabilitation <Destinee Morgan - Last Filed: 09/15/17 14:04> Objective - Vital Signs/Intake and Output Vital Signs (last 24 hours): Temp Pulse Resp BP Pulse Ox 97.8 F 64 16 111/58 L 100 09/15/17 06:00 09/15/17 08:18 09/15/17 06:00 09/15/17 10:41 09/14/17 20:00 - Medications Medications: Current Medications Acetaminophen (Tylenol 325mg Tab) 650 mg PO Q6H PRN; Protocol PRN Reason: Headache Acetylcysteine (Acetylcysteine 20%) 4 ml IH [id number] GRETEL PRN Reason: Protocol Last Admin: 09/15/17 07:34 Dose: Not Given Albuterol Sulfate (Albuterol 0.083% Inhal [place] (2.5 Mg/3 Ml) Ud) 2.5 mg IH [id number] PRN PRN Reason: Shortness of Breath Alprazolam (Xanax) 0.25 mg PO BID PRN; Protocol PRN Reason: Anxiety Stop: 09/19/17 14:05 Last Admin: 09/14/17 21:31 Dose: 0.25 mg Aspirin (Ecotrin) 81 mg PO 0800 GRETEL PRN Reason: Protocol Last Admin: 09/15/17 08:18 Dose: 81 mg Atorvastatin Calcium (Lipitor) 10 mg PO DIN GRETEL PRN Reason: Protocol Last Admin: 09/14/17 17:56 Dose: 10 mg Benzonatate (Tessalon Perles) 100 mg PO TID GRETEL PRN Reason: Protocol Last Admin: 09/15/17 13:35 Dose: 100 mg Budesonide (Pulmicort Respules) 1 mg IH [id number] GRETEL PRN Reason: Protocol Last Admin: 09/15/17 07:35 Dose: 1 mg Cholecalciferol (Vitamin D) 1,000 intlu PO DAILY GRETEL PRN Reason: Protocol Last Admin: 09/15/17 10:42 Dose: 1,000 intlu Enoxaparin Sodium (Lovenox) 40 mg SC 0630 [facility] PRN Reason: Protocol Last Admin: 09/15/17 05:58 Dose: 40 mg Furosemide (Lasix) 40 mg PO BID GRETEL PRN Reason: Protocol Last Admin: 09/15/17 10:41 Dose: 40 mg Guaifenesin/Codeine Phosphate (Robitussin W/Codeine) 5 ml PO Q4H PRN PRN Reason: Cough and congestion Stop: 09/16/17 23:59 Ibuprofen (Motrin Tab) 400 mg PO Q6H PRN PRN Reason: Pain, moderate (4-7) Last Admin: 09/15/17 12:05 Dose: 400 mg Ipratropium [place] (Atrovent) 0.5 mg IH [id number] [facility] Last Admin: 09/15/17 13:26 Dose: 0.5 mg Lactobacillus Acidophilus (Bacid Acidophilus) 1 cap PO BID GRETEL PRN Reason: Protocol Last Admin: 09/15/17 10:41 Dose: 1 cap Levothyroxine Sodium (Synthroid) 100 mcg PO 0630 GRETEL PRN Reason: Protocol Last Admin: 09/15/17 05:58 Dose: 100 mcg Metoprolol Tartrate (Lopressor) 25 mg PO 1800 GRETEL PRN Reason: Protocol Last Admin: 09/14/17 17:56 Dose: 25 mg Metoprolol Tartrate (Lopressor) 50 mg PO 0800 GRETEL PRN Reason: Protocol Last Admin: 09/15/17 08:18 Dose: 50 mg Ondansetron HCl (Zofran Odt) 4 mg PO Q8 PRN; Protocol PRN Reason: Nausea/Vomiting Pantoprazole Sodium (Protonix Ec Tab) 40 mg PO 0600 GRETEL PRN Reason: Protocol Last Admin: 09/15/17 05:58 Dose: 40 mg Potassium Chloride (K-Dur 20 Meq Er Tab) 20 meq PO 0730,1800 [facility]RET[facility] Last Admin: 09/15/17 08:18 Dose: 20 meq Prednisone (Prednisone Tab) 20 mg PO 0800 GRETEL PRN Reason: Protocol Last Admin: 09/15/17 08:18 Dose: 20 mg - Labs Labs: 09/15/17 07:00 Attending/Attestation - Attestation I have personally seen and examined this patient.: Yes I have fully participated in the care of the patient.: Yes I have reviewed all pertinent clinical information, including history, physical exam and plan: Yes Notes (Text): I have seen and examined the patient at bedside. Agree with the above note with the following additions/ exceptions: Briefly this is 76 year old female with history of COPD, CHF secondary to diastolic dysfunction, HTN, PUD, dyslipidemia , hypothyroidism, depression, gout, colonic polyps who presented with cough, dyspnea due to COPD exacerbation. Her dyspnea and cough has improved however she continues to complain of mucous production. Continue tapering dose of prednisone. Upon discharge patient will follow up with Dr Rogers and Dr Solomon.
[2017-09-15] MEDS ORDERED: guaiFENesin-Codeine 100-10mg/5ml Syrup (5 ml) UD PO PRN (12:20)
[2017-09-16] MEDS: Acetylcysteine 20% Inhal Soln (4ml) IH SCH ×3 (02:59→21:43)
[2017-09-16] MEDS: Ipratropium 0.02% Inhal Soln (0.5 mg/2.5 ml) UD IH SCH ×4 (02:59→21:43)
[2017-09-16] MEDS: Enoxaparin 40 mg Syringe SC SCH (05:58)
[2017-09-16] MEDS: Levothyroxine 100 MCG TAB PO SCH (05:59)
[2017-09-16] MEDS: Pantoprazole 40 mg EC Tab PO SCH (05:59)
--- NOTE | 2017-09-16 06:03 | CP.PCM.PN ---
Subjective - Date & Time of Evaluation Date of Evaluation: 09/16/17 Time of Evaluation: 06:35 - Subjective Subjective: Sleeping but easily awaken,lying in bed, no distress,denies chest pain,denies shortness of breath Reason for consultation and follow up: Continuity of care in TCU.Shortness of breath, chest pain, COPD, Pacemaker, GERD, atrial fibrillation,anxiety, depression,ex-smoker. Seen and examined by me and Dr. Levine Objective - Vital Signs/Intake and Output Vital Signs (last 24 hours): Temp Pulse Resp BP Pulse Ox 97.8 F 68 16 105/60 100 09/15/17 06:00 09/15/17 17:20 09/15/17 06:00 09/15/17 17:21 09/14/17 20:00 - Medications Medications: Current Medications Acetaminophen (Tylenol 325mg Tab) 650 mg PO Q6H PRN; Protocol PRN Reason: Headache Acetylcysteine (Acetylcysteine 20%) 4 ml IH [id number] GRETEL PRN Reason: Protocol Last Admin: 09/16/17 02:59 Dose: Not Given Albuterol Sulfate (Albuterol 0.083% Inhal [place] (2.5 Mg/3 Ml) Ud) 2.5 mg IH [id number] PRN PRN Reason: Shortness of Breath Alprazolam (Xanax) 0.25 mg PO BID PRN; Protocol PRN Reason: Anxiety Stop: 09/19/17 14:05 Last Admin: 09/15/17 23:20 Dose: 0.25 mg Aspirin (Ecotrin) 81 mg PO 0800 GRETEL PRN Reason: Protocol Last Admin: 09/15/17 08:18 Dose: 81 mg Atorvastatin Calcium (Lipitor) 10 mg PO DIN GRETEL PRN Reason: Protocol Last Admin: 09/15/17 17:19 Dose: 10 mg Benzonatate (Tessalon Perles) 100 mg PO TID GRETEL PRN Reason: Protocol Last Admin: 09/15/17 17:21 Dose: 100 mg Budesonide (Pulmicort Respules) 1 mg IH [id number] GRETEL PRN Reason: Protocol Last Admin: 09/15/17 21:00 Dose: Not Given Cholecalciferol (Vitamin D) 1,000 intlu PO DAILY GRETEL PRN Reason: Protocol Last Admin: 09/15/17 10:42 Dose: 1,000 intlu Enoxaparin Sodium (Lovenox) 40 mg SC 0630 [facility]RETEL PRN Reason: Protocol Last Admin: 09/16/17 05:58 Dose: 40 mg Furosemide (Lasix) 40 mg PO BID GRETEL PRN Reason: Protocol Last Admin: 09/15/17 17:21 Dose: 40 mg Guaifenesin/Codeine Phosphate (Robitussin W/Codeine) 5 ml PO Q4H PRN PRN Reason: Cough and congestion Stop: 09/16/17 23:59 Ibuprofen (Motrin Tab) 400 mg PO Q6H PRN PRN Reason: Pain, moderate (4-7) Last Admin: 09/15/17 12:05 Dose: 400 mg Ipratropium [place] (Atrovent) 0.5 mg IH [id number] [facility] Last Admin: 09/16/17 02:59 Dose: Not Given Lactobacillus Acidophilus (Bacid Acidophilus) 1 cap PO BID GRETEL PRN Reason: Protocol Last Admin: 09/15/17 17:18 Dose: 1 cap Levothyroxine Sodium (Synthroid) 100 mcg PO 0630 [facility] PRN Reason: Protocol Last Admin: 09/16/17 05:59 Dose: 100 mcg Metoprolol Tartrate (Lopressor) 25 mg PO 1800 [facility] PRN Reason: Protocol Last Admin: 09/15/17 17:20 Dose: 25 mg Metoprolol Tartrate (Lopressor) 50 mg PO 0800 [facility]RETEL PRN Reason: Protocol Last Admin: 09/15/17 08:18 Dose: 50 mg Ondansetron HCl (Zofran Odt) 4 mg PO Q8 PRN; Protocol PRN Reason: Nausea/Vomiting Pantoprazole Sodium (Protonix Ec Tab) 40 mg PO 0600 [facility] PRN Reason: Protocol Last Admin: 09/16/17 05:59 Dose: 40 mg Potassium Chloride (K-Dur 20 Meq Er Tab) 20 meq PO 0730,1800 [facility] Last Admin: 09/15/17 17:19 Dose: 20 meq Prednisone (Prednisone Tab) 10 mg PO 0800 [facility] PRN Reason: Protocol - Labs Labs: 09/15/17 07:00 - Constitutional Appears: No Acute Distress - Head Exam Head Exam: NORMOCEPHALIC - Eye Exam Eye Exam: Normal appearance - ENT Exam ENT Exam: Mucous Membranes Moist - Respiratory Exam Respiratory Exam: Clear to Ausculation Bilateral, NORMAL BREATHING PATTERN - Cardiovascular Exam Cardiovascular Exam: +S1, +S2 - GI/Abdominal Exam GI & Abdominal Exam: Soft, Normal Bowel Sounds - Extremities Exam Extremities Exam: Normal Capillary Refill - Neurological Exam Neurological Exam: Alert, Awake, Oriented x3 - Psychiatric Exam Psychiatric exam: Normal Affect, Normal Mood - Skin Skin Exam: Intact, Normal Color, Warm Assessment and Plan - Assessment and Plan (Free Text) Assessment: A 77 year old female who came to the ER due to shortness of breath and substernal chest pain at rest, non radiating, 3.5 days of productive cough. sputum is whitish to yellow. History of COPD (60 pack year history of smoking) , pacemaker, CHF , atrial fibrillation, GERD, anxiety, and depression. Cardiac work up was done earlier this year (May 2017) had abnormal stress test thus cardiac catheterization was done. Results were normal coronaries with LVEF of 65%. With this admission, she had exacerbation of COPD. Patient was treated with steroids taper, duonebs, ceftriaxone, and PO azithromycin with improvement in her dyspnea and cough. She was evaluated by physical therapy and recommended to go to the TCU for strengthening and unsteady gait. Plan: Stable cardiac status Physical therapy in progress Fall precaution On ASA 81 mg daily,Lipitor 10 mg daily,Lopressor 50 mg daily at AM and 25 mg daily PM Lasix 40 mg BID,Kdur 20 meq BID Continue current medications Continue current treatment Discharge planning Will follow up Plan and treatment discussed with Dr. Levine
[2017-09-16] MEDS: Budesonide 0.5 mg/2 ml Inhal Susp UD IH SCH ×2 (07:56→21:44)
[2017-09-16] MEDS: Potassium Chloride 20 mEq ER Tab PO SCH ×2 (07:57→10:07)
[2017-09-16] MEDS: Cholecalciferol 1,000 INTLU TAB PO SCH (09:12)
[2017-09-16] MEDS: Lactobacillus Acidophilus 500 MU Cap PO SCH ×2 (09:12→17:03)
[2017-09-17] MEDS: Ipratropium 0.02% Inhal Soln (0.5 mg/2.5 ml) UD IH SCH ×4 (01:34→20:34)
[2017-09-17] MEDS: Acetylcysteine 20% Inhal Soln (4ml) IH SCH ×3 (01:34→20:33)
[2017-09-17] MEDS: Levothyroxine 100 MCG TAB PO SCH (05:47)
[2017-09-17] MEDS: Pantoprazole 40 mg EC Tab PO SCH (05:47)
[2017-09-17] MEDS: Enoxaparin 40 mg Syringe SC SCH (05:47)
--- NOTE | 2017-09-17 06:38 | CP.PCM.PN ---
Subjective - Date & Time of Evaluation Date of Evaluation: 09/17/17 Time of Evaluation: 06:30 - Subjective Subjective: Lying in bed, Sleeping but easily awaken, no distress Reason for consultation and follow up: Continuity of care in TCU.Shortness of breath, chest pain, COPD, Pacemaker, GERD, atrial fibrillation,anxiety, depression,ex-smoker. Seen and examined by me and Dr. Levine Objective - Vital Signs/Intake and Output Vital Signs (last 24 hours): Temp Pulse Resp BP Pulse Ox 97.9 F 62 20 101/59 L 94 L 09/16/17 17:59 09/16/17 17:59 09/16/17 17:59 09/16/17 17:59 09/16/17 11:53 - Medications Medications: Current Medications Acetaminophen (Tylenol 325mg Tab) 650 mg PO Q6H PRN; Protocol PRN Reason: Headache Acetylcysteine (Acetylcysteine 20%) 4 ml IH [id number] GRETEL PRN Reason: Protocol Last Admin: 09/17/17 01:34 Dose: Not Given Albuterol Sulfate (Albuterol 0.083% Inhal [place] (2.5 Mg/3 Ml) Ud) 2.5 mg IH [id number] PRN PRN Reason: Shortness of Breath Alprazolam (Xanax) 0.25 mg PO BID PRN; Protocol PRN Reason: Anxiety Stop: 09/19/17 14:05 Last Admin: 09/16/17 21:58 Dose: 0.25 mg Aspirin (Ecotrin) 81 mg PO 0800 GRETEL PRN Reason: Protocol Last Admin: 09/16/17 07:57 Dose: 81 mg Atorvastatin Calcium (Lipitor) 10 mg PO DIN GRETEL PRN Reason: Protocol Last Admin: 09/16/17 17:04 Dose: 10 mg Benzonatate (Tessalon Perles) 100 mg PO TID GRETEL PRN Reason: Protocol Last Admin: 09/16/17 17:07 Dose: 100 mg Budesonide (Pulmicort Respules) 1 mg IH [id number] GRETEL PRN Reason: Protocol Last Admin: 09/16/17 21:44 Dose: 1 mg Cholecalciferol (Vitamin D) 1,000 intlu PO DAILY GRETEL PRN Reason: Protocol Last Admin: 09/16/17 09:12 Dose: 1,000 intlu Enoxaparin Sodium (Lovenox) 40 mg SC 0630 GRETEL PRN Reason: Protocol Last Admin: 09/17/17 05:47 Dose: 40 mg Furosemide (Lasix) 40 mg PO BID GRETEL PRN Reason: Protocol Last Admin: 09/16/17 17:04 Dose: 40 mg Ibuprofen (Motrin Tab) 400 mg PO Q6H PRN PRN Reason: Pain, moderate (4-7) Last Admin: 09/15/17 12:05 Dose: 400 mg Ipratropium [place] (Atrovent) 0.5 mg IH [id number] [facility] Last Admin: 09/17/17 01:34 Dose: Not Given Lactobacillus Acidophilus (Bacid Acidophilus) 1 cap PO BID GRETEL PRN Reason: Protocol Last Admin: 09/16/17 17:03 Dose: 1 cap Levothyroxine Sodium (Synthroid) 100 mcg PO 0630 GRETEL PRN Reason: Protocol Last Admin: 09/17/17 05:47 Dose: 100 mcg Metoprolol Tartrate (Lopressor) 25 mg PO 1800 [facility] PRN Reason: Protocol Last Admin: 09/16/17 17:07 Dose: Not Given Metoprolol Tartrate (Lopressor) 50 mg PO 0800 GRETEL PRN Reason: Protocol Last Admin: 09/16/17 07:57 Dose: 50 mg Ondansetron HCl (Zofran Odt) 4 mg PO Q8 PRN; Protocol PRN Reason: Nausea/Vomiting Pantoprazole Sodium (Protonix Ec Tab) 40 mg PO 0600 GRETEL PRN Reason: Protocol Last Admin: 09/17/17 05:47 Dose: 40 mg Potassium Chloride (K-Dur 20 Meq Er Tab) 20 meq PO DAILY [facility] Last Admin: 09/16/17 10:07 Dose: 20 meq Prednisone (Prednisone Tab) 10 mg PO 0800 [facility] PRN Reason: Protocol - Labs Labs: 09/15/17 07:00 - Constitutional Appears: No Acute Distress - Head Exam Head Exam: NORMOCEPHALIC - Eye Exam Eye Exam: Normal appearance - ENT Exam ENT Exam: Mucous Membranes Moist - Respiratory Exam Respiratory Exam: Clear to Ausculation Bilateral, NORMAL BREATHING PATTERN - Cardiovascular Exam Cardiovascular Exam: +S1, +S2 - GI/Abdominal Exam GI & Abdominal Exam: Soft, Normal Bowel Sounds - Extremities Exam Extremities Exam: Normal Capillary Refill - Neurological Exam Neurological Exam: Alert, Awake, Oriented x3 - Psychiatric Exam Psychiatric exam: Normal Affect, Normal Mood - Skin Skin Exam: Intact, Normal Color, Warm Assessment and Plan - Assessment and Plan (Free Text) Assessment: A 77 year old female who came to the ER due to shortness of breath and substernal chest pain at rest, non radiating, 3.5 days of productive cough. sputum is whitish to yellow. History of COPD (60 pack year history of smoking) , pacemaker, CHF , atrial fibrillation, GERD, anxiety, and depression. Cardiac work up was done earlier this year (May 2017) had abnormal stress test thus cardiac catheterization was done. Results were normal coronaries with LVEF of 65%. With this admission, she had exacerbation of COPD. Patient was treated with steroids taper, duonebs, ceftriaxone, and PO azithromycin with improvement in her dyspnea and cough. She was evaluated by physical therapy and recommended to go to the TCU for strengthening and unsteady gait. Plan: Physical therapy in progress Fall precaution Cardiac status stable On ASA 81 mg daily,Lipitor 10 mg daily,Lopressor 50 mg daily at AM and 25 mg daily PM Lasix 40 mg BID,Kdur 20 meq BID Continue current medications Continue current treatment Lives with daughter and has supportive family Discharge planning Will follow up Plan and treatment discussed with Dr. Levine
[2017-09-17] MEDS: Budesonide 0.5 mg/2 ml Inhal Susp UD IH SCH ×2 (07:22→20:34)
[2017-09-17 07:33] LABS: BLOOD UREA NITROGEN 27 mg/dL (7-21); CALCIUM 9.3 mg/dL (8.4-10.5); GFR AFRICAN-AMERICAN > 60; GFR NON-AFRICAN AMERICAN > 60
[2017-09-17] MEDS: Potassium Chloride 20 mEq ER Tab PO SCH (10:15)
[2017-09-17] MEDS: Lactobacillus Acidophilus 500 MU Cap PO SCH ×2 (10:15→17:42)
[2017-09-17] MEDS: Cholecalciferol 1,000 INTLU TAB PO SCH (10:16)
[2017-09-17] MEDS ORDERED: guaiFENesin 200 mg/10 ml Syrup UD PO PRN (11:33)
--- NOTE | 2017-09-17 11:33 | CP.PCM.PN ---
<Fabio Arias - Last Filed: 09/17/17 11:31> Subjective - Date & Time of Evaluation Date of Evaluation: 09/17/17 Time of Evaluation: 11:31 - Subjective Subjective: Patient seen and examined at bedside. Doing well with no complaints at this time. Breathing has improved. Coughing today. Able to ambulate w/o difficulty. Objective - Vital Signs/Intake and Output Vital Signs (last 24 hours): Temp Pulse Resp BP Pulse Ox 97.9 F 97 H 20 116/57 L 94 L 09/16/17 17:59 09/17/17 08:22 09/16/17 17:59 09/17/17 10:16 09/16/17 11:53 - Medications Medications: Current Medications Acetaminophen (Tylenol 325mg Tab) 650 mg PO Q6H PRN; Protocol PRN Reason: Headache Acetylcysteine (Acetylcysteine 20%) 4 ml IH [id number] GRETEL PRN Reason: Protocol Last Admin: 09/17/17 08:08 Dose: Not Given Albuterol Sulfate (Albuterol 0.083% Inhal [place] (2.5 Mg/3 Ml) Ud) 2.5 mg IH [id number] PRN PRN Reason: Shortness of Breath Alprazolam (Xanax) 0.25 mg PO BID PRN; Protocol PRN Reason: Anxiety Stop: 09/19/17 14:05 Last Admin: 09/16/17 21:58 Dose: 0.25 mg Aspirin (Ecotrin) 81 mg PO 0800 GRETEL PRN Reason: Protocol Last Admin: 09/17/17 08:21 Dose: 81 mg Atorvastatin Calcium (Lipitor) 10 mg PO DIN GRETEL PRN Reason: Protocol Last Admin: 09/16/17 17:04 Dose: 10 mg Benzonatate (Tessalon Perles) 100 mg PO TID GRETEL PRN Reason: Protocol Last Admin: 09/17/17 10:16 Dose: 100 mg Budesonide (Pulmicort Respules) 1 mg IH [id number] GRETEL PRN Reason: Protocol Last Admin: 09/17/17 07:22 Dose: 1 mg Cholecalciferol (Vitamin D) 1,000 intlu PO DAILY GRETEL PRN Reason: Protocol Last Admin: 09/17/17 10:16 Dose: 1,000 intlu Enoxaparin Sodium (Lovenox) 40 mg SC 0630 GRETEL PRN Reason: Protocol Last Admin: 09/17/17 05:47 Dose: 40 mg Furosemide (Lasix) 40 mg PO BID GRETEL PRN Reason: Protocol Last Admin: 09/17/17 10:16 Dose: 40 mg Ibuprofen (Motrin Tab) 400 mg PO Q6H PRN PRN Reason: Pain, moderate (4-7) Last Admin: 09/15/17 12:05 Dose: 400 mg Ipratropium [place] (Atrovent) 0.5 mg IH [id number] [facility] Last Admin: 09/17/17 07:22 Dose: 0.5 mg Lactobacillus Acidophilus (Bacid Acidophilus) 1 cap PO BID GRETEL PRN Reason: Protocol Last Admin: 09/17/17 10:15 Dose: 1 cap Levothyroxine Sodium (Synthroid) 100 mcg PO 0630 GRETEL PRN Reason: Protocol Last Admin: 09/17/17 05:47 Dose: 100 mcg Metoprolol Tartrate (Lopressor) 25 mg PO 1800 [facility] PRN Reason: Protocol Last Admin: 09/16/17 17:07 Dose: Not Given Metoprolol Tartrate (Lopressor) 50 mg PO 0800 [facility] PRN Reason: Protocol Last Admin: 09/17/17 08:22 Dose: 50 mg Ondansetron HCl (Zofran Odt) 4 mg PO Q8 PRN; Protocol PRN Reason: Nausea/Vomiting Pantoprazole Sodium (Protonix Ec Tab) 40 mg PO 0600 GRETEL PRN Reason: Protocol Last Admin: 09/17/17 05:47 Dose: 40 mg Potassium Chloride (K-Dur 20 Meq Er Tab) 20 meq PO 0730 [facility] PRN Reason: Protocol Prednisone (Prednisone Tab) 10 mg PO 0800 [facility] PRN Reason: Protocol Last Admin: 09/17/17 08:21 Dose: 10 mg - Labs Labs: 09/17/17 06:35 - Constitutional Appears: Well - Head Exam Head Exam: ATRAUMATIC, NORMAL INSPECTION, NORMOCEPHALIC - Eye Exam Eye Exam: EOMI, Normal appearance, PERRL Pupil Exam: NORMAL ACCOMODATION, PERRL - ENT Exam ENT Exam: Mucous Membranes Moist, Normal Exam - Neck Exam Neck Exam: Full ROM, Normal Inspection. absent: Lymphadenopathy - Respiratory Exam Respiratory Exam: Clear to Ausculation Bilateral, NORMAL BREATHING PATTERN - Cardiovascular Exam Cardiovascular Exam: REGULAR RHYTHM, +S1, +S2. absent: Murmur - GI/Abdominal Exam GI & Abdominal Exam: Soft, Normal Bowel Sounds. absent: Tenderness - Extremities Exam Extremities Exam: Full ROM, Normal Capillary Refill, Normal Inspection. absent : Joint Swelling, Pedal Edema - Back Exam Back Exam: NORMAL INSPECTION - Neurological Exam Neurological Exam: Alert, Awake, CN II-XII Intact, Normal Gait, Oriented x3 - Psychiatric Exam Psychiatric exam: Normal Affect, Normal Mood - Skin Skin Exam: Dry, Intact, Normal Color, Warm Assessment and Plan - Assessment and Plan (Free Text) Assessment: COPD exacerbation Ipratropium q6h Budesonide 1 mg IH q12h Aformoterol 15 mcg IH q12h Resp Azithromycin started today; 500 once, 250 for a total of four days Chest pain Cards (Sandu) EKG shows no ST changes or arrythmogenic intervals aspirin 81 mg PO daily Diastolic CHF Lasix 40 mg PO BID Metoprolol Tartarate 50 in AM and 25 in PM GERD omeprazole Zofran PRN Anxiety Xanax 0.25 BID Hypothryoidism Synthroid 100 mcg PO daily Vitamin D deficiency 1,000 IU daily GI/DVT prophylaxis/Disposition omeprazole Lovenox 40 mg SC HHD diet PT recommends TCU Weakness and gait instability TCU for PT and rehabilitation <Aayush Forman - Last Filed: 09/17/17 14:14> Objective - Vital Signs/Intake and Output Vital Signs (last 24 hours): Temp Pulse Resp BP Pulse Ox 97.9 F 97 H 20 116/57 L 94 L 09/16/17 17:59 09/17/17 08:22 09/16/17 17:59 09/17/17 10:16 09/16/17 11:53 - Medications Medications: Current Medications Acetaminophen (Tylenol 325mg Tab) 650 mg PO Q6H PRN; Protocol PRN Reason: Headache Acetylcysteine (Acetylcysteine 20%) 4 ml IH [id number] GRETEL PRN Reason: Protocol Last Admin: 09/17/17 08:08 Dose: Not Given Albuterol Sulfate (Albuterol 0.083% Inhal Marylin (2.5 Mg/3 Ml) Ud) 2.5 mg IH [id number] PRN PRN Reason: Shortness of Breath Alprazolam (Xanax) 0.25 mg PO BID PRN; Protocol PRN Reason: Anxiety Stop: 09/19/17 14:05 Last Admin: 09/16/17 21:58 Dose: 0.25 mg Aspirin (Ecotrin) 81 mg PO 0800 GRETEL PRN Reason: Protocol Last Admin: 09/17/17 08:21 Dose: 81 mg Atorvastatin Calcium (Lipitor) 10 mg PO DIN GRETEL PRN Reason: Protocol Last Admin: 09/16/17 17:04 Dose: 10 mg Benzonatate (Tessalon Perles) 100 mg PO TID GRETEL PRN Reason: Protocol Last Admin: 09/17/17 10:16 Dose: 100 mg Budesonide (Pulmicort Respules) 1 mg IH [id number] GRETEL PRN Reason: Protocol Last Admin: 09/17/17 07:22 Dose: 1 mg Cholecalciferol (Vitamin D) 1,000 intlu PO DAILY GRETEL PRN Reason: Protocol Last Admin: 09/17/17 10:16 Dose: 1,000 intlu Enoxaparin Sodium (Lovenox) 40 mg SC 0630 [facility] PRN Reason: Protocol Last Admin: 09/17/17 05:47 Dose: 40 mg Furosemide (Lasix) 40 mg PO BID GRETEL PRN Reason: Protocol Last Admin: 09/17/17 10:16 Dose: 40 mg Guaifenesin (Robitussin) 200 mg PO Q4H PRN PRN Reason: Cough and congestion Ibuprofen (Motrin Tab) 400 mg PO Q6H PRN PRN Reason: Pain, moderate (4-7) Last Admin: 09/15/17 12:05 Dose: 400 mg Ipratropium [place] (Atrovent) 0.5 mg IH [id number] [facility] Last Admin: 09/17/17 13:15 Dose: 0.5 mg Lactobacillus Acidophilus (Bacid Acidophilus) 1 cap PO BID GRETEL PRN Reason: Protocol Last Admin: 09/17/17 10:15 Dose: 1 cap Levothyroxine Sodium (Synthroid) 100 mcg PO 0630 GRETEL PRN Reason: Protocol Last Admin: 09/17/17 05:47 Dose: 100 mcg Metoprolol Tartrate (Lopressor) 25 mg PO 1800 GRETEL PRN Reason: Protocol Last Admin: 09/16/17 17:07 Dose: Not Given Metoprolol Tartrate (Lopressor) 50 mg PO 0800 [facility] PRN Reason: Protocol Last Admin: 09/17/17 08:22 Dose: 50 mg Ondansetron HCl (Zofran Odt) 4 mg PO Q8 PRN; Protocol PRN Reason: Nausea/Vomiting Pantoprazole Sodium (Protonix Ec Tab) 40 mg PO 0600 GRETEL PRN Reason: Protocol Last Admin: 09/17/17 05:47 Dose: 40 mg Potassium Chloride (K-Dur 20 Meq Er Tab) 20 meq PO 0730 [facility] PRN Reason: Protocol Prednisone (Prednisone Tab) 10 mg PO 0800 [facility] PRN Reason: Protocol Last Admin: 09/17/17 08:21 Dose: 10 mg - Labs Labs: 09/17/17 06:35 Attending/Attestation - Attestation I have personally seen and examined this patient.: Yes I have fully participated in the care of the patient.: Yes I have reviewed all pertinent clinical information, including history, physical exam and plan: Yes Notes (Text): 09/17/17 14:13 Patient seen and examined Agree with above Noted to have a dry cough, improved wheezing on exam Will add symptomatic treatment for cough, currently on tapering steroids Otherwise, hemodynamically stable. Cardio following
[2017-09-18] MEDS: Ipratropium 0.02% Inhal Soln (0.5 mg/2.5 ml) UD IH SCH ×4 (02:50→20:15)
[2017-09-18] MEDS: Acetylcysteine 20% Inhal Soln (4ml) IH SCH ×4 (02:50→20:15)
[2017-09-18] MEDS: Pantoprazole 40 mg EC Tab PO SCH (05:32)
[2017-09-18] MEDS: Levothyroxine 100 MCG TAB PO SCH (05:32)
[2017-09-18] MEDS: Enoxaparin 40 mg Syringe SC SCH (05:32)
[2017-09-18] MEDS ORDERED: Potassium Chloride 20 mEq ER Tab PO SCH ×2 (07:30→12:31)
--- NOTE | 2017-09-18 07:40 | CP.PCM.PN ---
Subjective - Date & Time of Evaluation Date of Evaluation: 09/18/17 Time of Evaluation: 06:55 - Subjective Subjective: Lying in bed, Sleeping but easily awaken, no distress Reason for consultation and follow up: Continuity of care in TCU.Shortness of breath, chest pain, COPD, Pacemaker, GERD, atrial fibrillation,anxiety, depression,ex-smoker. Seen and examined by me and Dr. Levine Objective - Vital Signs/Intake and Output Vital Signs (last 24 hours): Temp Pulse Resp BP Pulse Ox 97 F L 65 18 92/59 L 94 L 09/17/17 16:00 09/17/17 17:44 09/17/17 16:00 09/17/17 17:44 09/16/17 11:53 - Medications Medications: Current Medications Acetaminophen (Tylenol 325mg Tab) 650 mg PO Q6H PRN; Protocol PRN Reason: Headache Acetylcysteine (Acetylcysteine 20%) 4 ml IH [id number] GRETEL PRN Reason: Protocol Last Admin: 09/18/17 02:50 Dose: Not Given Albuterol Sulfate (Albuterol 0.083% Inhal Marylin (2.5 Mg/3 Ml) Ud) 2.5 mg IH [id number] PRN PRN Reason: Shortness of Breath Alprazolam (Xanax) 0.25 mg PO BID PRN; Protocol PRN Reason: Anxiety Stop: 09/19/17 14:05 Last Admin: 09/17/17 22:44 Dose: 0.25 mg Aspirin (Ecotrin) 81 mg PO 0800 GRETEL PRN Reason: Protocol Last Admin: 09/17/17 08:21 Dose: 81 mg Atorvastatin Calcium (Lipitor) 10 mg PO DIN GRETEL PRN Reason: Protocol Last Admin: 09/17/17 17:43 Dose: 10 mg Benzonatate (Tessalon Perles) 100 mg PO TID GRETEL PRN Reason: Protocol Last Admin: 09/17/17 17:42 Dose: 100 mg Budesonide (Pulmicort Respules) 1 mg IH [id number] GRETEL PRN Reason: Protocol Last Admin: 09/17/17 20:34 Dose: 1 mg Cholecalciferol (Vitamin D) 1,000 intlu PO DAILY GRETEL PRN Reason: Protocol Last Admin: 09/17/17 10:16 Dose: 1,000 intlu Enoxaparin Sodium (Lovenox) 40 mg SC 0630 GRETEL PRN Reason: Protocol Last Admin: 09/18/17 05:32 Dose: 40 mg Furosemide (Lasix) 40 mg PO BID GRETEL PRN Reason: Protocol Last Admin: 09/17/17 17:43 Dose: 40 mg Guaifenesin (Robitussin) 200 mg PO Q4H PRN PRN Reason: Cough and congestion Ibuprofen (Motrin Tab) 400 mg PO Q6H PRN PRN Reason: Pain, moderate (4-7) Last Admin: 09/15/17 12:05 Dose: 400 mg Ipratropium [place] (Atrovent) 0.5 mg IH [id number] [facility] Last Admin: 09/18/17 02:50 Dose: Not Given Lactobacillus Acidophilus (Bacid Acidophilus) 1 cap PO BID GRETEL PRN Reason: Protocol Last Admin: 09/17/17 17:42 Dose: 1 cap Levothyroxine Sodium (Synthroid) 100 mcg PO 0630 GRETEL PRN Reason: Protocol Last Admin: 09/18/17 05:32 Dose: 100 mcg Metoprolol Tartrate (Lopressor) 25 mg PO 1800 GRETEL PRN Reason: Protocol Last Admin: 09/17/17 17:44 Dose: 25 mg Metoprolol Tartrate (Lopressor) 50 mg PO 0800 GRETEL PRN Reason: Protocol Last Admin: 09/17/17 08:22 Dose: 50 mg Ondansetron HCl (Zofran Odt) 4 mg PO Q8 PRN; Protocol PRN Reason: Nausea/Vomiting Pantoprazole Sodium (Protonix Ec Tab) 40 mg PO 0600 GRETEL PRN Reason: Protocol Last Admin: 09/18/17 05:32 Dose: 40 mg Potassium Chloride (K-Dur 20 Meq Er Tab) 20 meq PO 0730 GRETEL PRN Reason: Protocol Prednisone (Prednisone Tab) 10 mg PO 0800 GRETEL PRN Reason: Protocol Last Admin: 09/17/17 08:21 Dose: 10 mg - Labs Labs: 09/17/17 06:35 - Constitutional Appears: No Acute Distress - Head Exam Head Exam: NORMOCEPHALIC - Eye Exam Eye Exam: Normal appearance - ENT Exam ENT Exam: Mucous Membranes Moist - Respiratory Exam Respiratory Exam: Clear to Ausculation Bilateral, NORMAL BREATHING PATTERN - Cardiovascular Exam Cardiovascular Exam: +S1, +S2 - GI/Abdominal Exam GI & Abdominal Exam: Soft, Normal Bowel Sounds - Extremities Exam Extremities Exam: Normal Capillary Refill - Neurological Exam Neurological Exam: Alert, Awake, Oriented x3 - Psychiatric Exam Psychiatric exam: Normal Affect, Normal Mood - Skin Skin Exam: Normal Color, Warm Assessment and Plan - Assessment and Plan (Free Text) Assessment: A 77 year old female who came to the ER due to shortness of breath and substernal chest pain at rest, non radiating, 3.5 days of productive cough. sputum is whitish to yellow. History of COPD (60 pack year history of smoking) , pacemaker, CHF , atrial fibrillation, GERD, anxiety, and depression. Cardiac work up was done earlier this year (May 2017) had abnormal stress test thus cardiac catheterization was done. Results were normal coronaries with LVEF of 65%. With this admission, she had exacerbation of COPD. Patient was treated with steroids taper, duonebs, ceftriaxone, and PO azithromycin with improvement in her dyspnea and cough. She was evaluated by physical therapy and recommended to go to the TCU for strengthening and unsteady gait. Plan: Physical therapy and OT in progress Fall precaution Cardiac status stable On ASA 81 mg daily,Lipitor 10 mg daily,Lopressor 50 mg daily at AM and 25 mg daily PM Lasix 40 mg BID, Kdur 20 meq BID Will decrease Lasix and potassium today Continue current medications Continue current treatment Discharge planning Will follow up Plan and treatment discussed with Dr. Levine
[2017-09-18] MEDS: Budesonide 0.5 mg/2 ml Inhal Susp UD IH SCH ×2 (07:46→20:14)
[2017-09-18] MEDS: Lactobacillus Acidophilus 500 MU Cap PO SCH ×2 (09:28→17:33)
[2017-09-18] MEDS: Cholecalciferol 1,000 INTLU TAB PO SCH (09:30)
[2017-09-18] MEDS ORDERED: Levothyroxine 100 MCG TAB PO SCH (10:37)
[2017-09-19] MEDS: Acetylcysteine 20% Inhal Soln (4ml) IH SCH ×4 (04:26→21:17)
[2017-09-19] MEDS: Ipratropium 0.02% Inhal Soln (0.5 mg/2.5 ml) UD IH SCH ×4 (04:26→21:18)
[2017-09-19] MEDS: Levothyroxine 100 MCG TAB PO SCH (05:30)
[2017-09-19] MEDS: Pantoprazole 40 mg EC Tab PO SCH (05:30)
[2017-09-19] MEDS: Enoxaparin 40 mg Syringe SC SCH (05:30)
[2017-09-19] MEDS: Budesonide 0.5 mg/2 ml Inhal Susp UD IH SCH ×2 (07:27→21:18)
[2017-09-19] MEDS: Potassium Chloride 20 mEq ER Tab PO SCH (08:21)
[2017-09-19] MEDS: Lactobacillus Acidophilus 500 MU Cap PO SCH ×2 (09:35→17:27)
[2017-09-19] MEDS: guaiFENesin-Codeine 100-10mg/5ml Syrup (5 ml) UD PO SCH ×3 (09:37→17:28)
[2017-09-19] MEDS: Cholecalciferol 1,000 INTLU TAB PO SCH (09:38)
--- NOTE | 2017-09-19 09:41 | CP.PCM.PN ---
<Fabio Arias - Last Filed: 09/19/17 09:38> Subjective - Date & Time of Evaluation Date of Evaluation: 09/19/17 Time of Evaluation: 09:38 - Subjective Subjective: Patient seen and examined at bedside. Still complaining of cough and phlegm she cant cough up. Tolerating diet and ambulating well with PT. No other complaints at this time Objective - Vital Signs/Intake and Output Vital Signs (last 24 hours): Temp Pulse Resp BP Pulse Ox 97.9 F 75 18 89/55 L 100 09/18/17 17:38 09/18/17 17:38 09/18/17 17:38 09/19/17 08:21 09/18/17 17:38 - Medications Medications: Current Medications Acetaminophen (Tylenol 325mg Tab) 650 mg PO Q6H PRN; Protocol PRN Reason: Headache Acetylcysteine (Acetylcysteine 20%) 4 ml IH [id number] GRETEL PRN Reason: Protocol Last Admin: 09/19/17 07:27 Dose: Not Given Albuterol Sulfate (Albuterol 0.083% Inhal Marylin (2.5 Mg/3 Ml) Ud) 2.5 mg IH [id number] PRN PRN Reason: Shortness of Breath Alprazolam (Xanax) 0.25 mg PO BID PRN; Protocol PRN Reason: Anxiety Stop: 09/19/17 14:05 Last Admin: 09/18/17 22:33 Dose: 0.25 mg Aspirin (Ecotrin) 81 mg PO 0800 GRETEL PRN Reason: Protocol Last Admin: 09/19/17 08:20 Dose: 81 mg Atorvastatin Calcium (Lipitor) 10 mg PO DIN GRETEL PRN Reason: Protocol Last Admin: 09/18/17 17:33 Dose: 10 mg Benzonatate (Tessalon Perles) 100 mg PO TID GRETEL PRN Reason: Protocol Last Admin: 09/18/17 17:35 Dose: 100 mg Budesonide (Pulmicort Respules) 1 mg IH [id number] GRETEL PRN Reason: Protocol Last Admin: 09/19/17 07:27 Dose: Not Given Cholecalciferol (Vitamin D) 1,000 intlu PO DAILY GRETEL PRN Reason: Protocol Last Admin: 09/18/17 09:30 Dose: 1,000 intlu Enoxaparin Sodium (Lovenox) 40 mg SC 0630 [facility] PRN Reason: Protocol Last Admin: 09/19/17 05:30 Dose: 40 mg Furosemide (Lasix) 40 mg PO DAILY [facility] Stop: 09/23/17 23:59 Last Admin: 09/18/17 09:29 Dose: 40 mg Guaifenesin/Codeine Phosphate (Robitussin W/Codeine) 5 ml PO Q4H [facility] Stop: 09/19/17 17:01 Ibuprofen (Motrin Tab) 400 mg PO Q6H PRN PRN Reason: Pain, moderate (4-7) Ipratropium [place] (Atrovent) 0.5 mg IH [id number] [facility] Last Admin: 09/19/17 07:27 Dose: Not Given Lactobacillus Acidophilus (Bacid Acidophilus) 1 cap PO BID [facility] PRN Reason: Protocol Last Admin: 09/18/17 17:33 Dose: 1 cap Levothyroxine Sodium (Synthroid) 100 mcg PO 0600 [facility] PRN Reason: Protocol Last Admin: 09/19/17 05:30 Dose: 100 mcg Metoprolol Tartrate (Lopressor) 25 mg PO 1800 [facility] PRN Reason: Protocol Last Admin: 09/18/17 17:34 Dose: 25 mg Metoprolol Tartrate (Lopressor) 50 mg PO 0800 [facility] PRN Reason: Protocol Last Admin: 09/19/17 08:21 Dose: Not Given Ondansetron HCl (Zofran Odt) 4 mg PO Q8 PRN; Protocol PRN Reason: Nausea/Vomiting Pantoprazole Sodium (Protonix Ec Tab) 40 mg PO 0600 [facility] PRN Reason: Protocol Last Admin: 09/19/17 05:30 Dose: 40 mg Potassium Chloride (K-Dur 20 Meq Er Tab) 20 meq PO 0800 [facility] PRN Reason: Protocol Last Admin: 09/19/17 08:21 Dose: 20 meq - Labs Labs: 09/17/17 06:35 - Constitutional Appears: Well - Head Exam Head Exam: ATRAUMATIC, NORMAL INSPECTION, NORMOCEPHALIC - Eye Exam Eye Exam: EOMI, Normal appearance, PERRL Pupil Exam: NORMAL ACCOMODATION, PERRL - ENT Exam ENT Exam: Mucous Membranes Moist, Normal Exam - Neck Exam Neck Exam: Full ROM, Normal Inspection. absent: Lymphadenopathy - Respiratory Exam Respiratory Exam: Clear to Ausculation Bilateral, NORMAL BREATHING PATTERN - Cardiovascular Exam Cardiovascular Exam: REGULAR RHYTHM, +S1, +S2. absent: Murmur - GI/Abdominal Exam GI & Abdominal Exam: Soft, Normal Bowel Sounds. absent: Tenderness - Extremities Exam Extremities Exam: Full ROM, Normal Capillary Refill, Normal Inspection. absent : Joint Swelling, Pedal Edema - Back Exam Back Exam: NORMAL INSPECTION - Neurological Exam Neurological Exam: Alert, Awake, CN II-XII Intact, Normal Gait, Oriented x3 - Psychiatric Exam Psychiatric exam: Normal Affect, Normal Mood - Skin Skin Exam: Dry, Intact, Normal Color, Warm Assessment and Plan - Assessment and Plan (Free Text) Assessment: COPD exacerbation Ipratropium q6h Budesonide 1 mg IH q12h Aformoterol 15 mcg IH q12h Resp Azithromycin started today; 500 once, 250 for a total of four days Natanael DM Chest pain Cards (Sandu) EKG shows no ST changes or arrythmogenic intervals aspirin 81 mg PO daily Diastolic CHF Lasix 40 mg PO BID Metoprolol Tartarate 50 in AM and 25 in PM GERD omeprazole Zofran PRN Anxiety Xanax 0.25 BID Hypothryoidism Synthroid 100 mcg PO daily Vitamin D deficiency 1,000 IU daily GI/DVT prophylaxis/Disposition omeprazole Lovenox 40 mg SC HHD diet PT recommends TCU Weakness and gait instability TCU for PT and rehabilitation <Aayush Forman - Last Filed: 09/19/17 10:29> Objective - Vital Signs/Intake and Output Vital Signs (last 24 hours): Temp Pulse Resp BP Pulse Ox 97.9 F 75 18 105/54 L 100 09/18/17 17:38 09/18/17 17:38 09/18/17 17:38 09/19/17 09:35 09/18/17 17:38 - Medications Medications: Current Medications Acetaminophen (Tylenol 325mg Tab) 650 mg PO Q6H PRN; Protocol PRN Reason: Headache Acetylcysteine (Acetylcysteine 20%) 4 ml IH [id number] GRETEL PRN Reason: Protocol Last Admin: 09/19/17 07:27 Dose: Not Given Albuterol Sulfate (Albuterol 0.083% Inhal Marylin (2.5 Mg/3 Ml) Ud) 2.5 mg IH [id number] PRN PRN Reason: Shortness of Breath Alprazolam (Xanax) 0.25 mg PO BID PRN; Protocol PRN Reason: Anxiety Stop: 09/19/17 14:05 Last Admin: 09/18/17 22:33 Dose: 0.25 mg Aspirin (Ecotrin) 81 mg PO 0800 GRETEL PRN Reason: Protocol Last Admin: 09/19/17 08:20 Dose: 81 mg Atorvastatin Calcium (Lipitor) 10 mg PO DIN GRETEL PRN Reason: Protocol Last Admin: 09/18/17 17:33 Dose: 10 mg Benzonatate (Tessalon Perles) 100 mg PO TID GRETEL PRN Reason: Protocol Last Admin: 09/19/17 09:36 Dose: 100 mg Budesonide (Pulmicort Respules) 1 mg IH [id number] GRETEL PRN Reason: Protocol Last Admin: 09/19/17 07:27 Dose: Not Given Cholecalciferol (Vitamin D) 1,000 intlu PO DAILY GRETEL PRN Reason: Protocol Last Admin: 09/19/17 09:38 Dose: 1,000 intlu Enoxaparin Sodium (Lovenox) 40 mg SC 0630 [facility] PRN Reason: Protocol Last Admin: 09/19/17 05:30 Dose: 40 mg Furosemide (Lasix) 40 mg PO DAILY [facility] Stop: 09/23/17 23:59 Last Admin: 09/19/17 09:35 Dose: 40 mg Guaifenesin/Codeine Phosphate (Robitussin W/Codeine) 5 ml PO Q4H GRETEL Stop: 09/19/17 17:01 Last Admin: 09/19/17 09:37 Dose: 5 ml Ibuprofen (Motrin Tab) 400 mg PO Q6H PRN PRN Reason: Pain, moderate (4-7) Ipratropium [place] (Atrovent) 0.5 mg IH [id number] [facility] Last Admin: 09/19/17 07:27 Dose: Not Given Lactobacillus Acidophilus (Bacid Acidophilus) 1 cap PO BID GRETEL PRN Reason: Protocol Last Admin: 09/19/17 09:35 Dose: 1 cap Levothyroxine Sodium (Synthroid) 100 mcg PO 0600 GRETEL PRN Reason: Protocol Last Admin: 09/19/17 05:30 Dose: 100 mcg Metoprolol Tartrate (Lopressor) 25 mg PO 1800 GRETEL PRN Reason: Protocol Last Admin: 09/18/17 17:34 Dose: 25 mg Metoprolol Tartrate (Lopressor) 50 mg PO 0800 GRETEL PRN Reason: Protocol Last Admin: 09/19/17 08:21 Dose: Not Given Ondansetron HCl (Zofran Odt) 4 mg PO Q8 PRN; Protocol PRN Reason: Nausea/Vomiting Pantoprazole Sodium (Protonix Ec Tab) 40 mg PO 0600 GRETEL PRN Reason: Protocol Last Admin: 09/19/17 05:30 Dose: 40 mg Potassium Chloride (K-Dur 20 Meq Er Tab) 20 meq PO 0800 GRETEL PRN Reason: Protocol Last Admin: 09/19/17 08:21 Dose: 20 meq - Labs Labs: 09/17/17 06:35 Attending/Attestation - Attestation I have personally seen and examined this patient.: Yes I have fully participated in the care of the patient.: Yes I have reviewed all pertinent clinical information, including history, physical exam and plan: Yes Notes (Text): Patient seen and examined. Agree with above Marked improvement of symptoms, no wheezing on exam Having persistent cough that has improved, supportive care. Discharge planning
[2017-09-19 14:19] VITALS: O2SAT 96
[2017-09-19 17:44] VITALS: PULSE 61; RESP 20; TEMP 97.4
--- NOTE | 2017-09-19 19:37 | PN ---
DATE: 09/19/2017 LOCATION: Patient in room 327, bed 2. REASON FOR CONSULTATION AND FOLLOWUP: Shortness of breath, COPD, respiratory tract infection, pacemaker, GERD, atrial fibrillation, anxiety, depression, hypertension, ex-smoker, and deconditioning. SUBJECTIVE: Patient is sitting in chair without any chest pain or palpitation. Patient states that her breathing has improved, but she still has cough. PHYSICAL EXAMINATION: VITAL SIGNS: Blood pressure 105/54, respiration 16, pulse 74, temperature 97.7. HEENT: Head: Normocephalic. Eyes: Pupil normal. Conjunctivae normal. NECK: JVP low. Carotids are equal. Thorax, AP diameter normal. LUNGS: No significant rales. CARDIOVASCULAR: S1, S2. ABDOMEN: Soft. No tenderness. No organomegaly. EXTREMITIES: No clubbing. No cyanosis. LABORATORY DATA: Sodium 141, potassium 4.1, BUN 27, creatinine 0.9, random glucose 102, calcium 9.3. DIAGNOSES: Acute exacerbation of chronic obstructive pulmonary disease, respiratory tract infection, pacemaker, hypertension, gastroesophageal reflux disease, anxiety, depression, atrial fibrillation. Patient has stress test in 05/2017, which was abnormal, so cardiac catheterization was done, which showed normal coronary arteries, left ventricular ejection fraction 65%. PLAN: Patient is getting physical therapy and the patient is continuing on medication. Nebulizer therapy with albuterol and ipratropium, aspirin 81 mg daily, potassium 20 mEq p.o. daily, furosemide 40 daily, Lipitor 10 daily, metoprolol 25 p.o. daily in the evening and patient is getting metoprolol tartrate 50 mg in the morning, Lovenox 40 mg subcutaneously daily, Protonix 40 daily, levothyroxine 100 mcg p.o. daily, benzonatate 100 mg p.o. t.i.d. We will continue present therapy, continue physical therapy. We will follow with you. Jefferson Solomon MD
[2017-09-20] MEDS: Pantoprazole 40 mg EC Tab PO SCH (05:48)
[2017-09-20] MEDS: Levothyroxine 100 MCG TAB PO SCH (05:48)
[2017-09-20] MEDS: Enoxaparin 40 mg Syringe SC SCH (05:48)
[2017-09-20] MEDS: Ipratropium 0.02% Inhal Soln (0.5 mg/2.5 ml) UD IH SCH ×3 (07:40→13:36)
[2017-09-20] MEDS: Acetylcysteine 20% Inhal Soln (4ml) IH SCH (07:41)
[2017-09-20] MEDS: Budesonide 0.5 mg/2 ml Inhal Susp UD IH SCH (07:41)
--- NOTE | 2017-09-20 07:45 | CP.PCM.PN ---
Subjective - Date & Time of Evaluation Date of Evaluation: 09/20/17 Time of Evaluation: 06:50 - Subjective Subjective: Sleeping but easily awaken,Lying in bed, no distress, denies shortness of breath but some cough Reason for consultation and follow up: Continuity of care in TCU.Shortness of breath, chest pain, COPD, Pacemaker, GERD, atrial fibrillation,anxiety, depression,ex-smoker. Seen and examined by me and Dr. Solomon Objective - Vital Signs/Intake and Output Vital Signs (last 24 hours): Temp Pulse Resp BP Pulse Ox 97.4 F L 61 20 95/46 L 96 09/19/17 17:44 09/19/17 17:44 09/19/17 17:44 09/19/17 17:44 09/19/17 10:00 - Medications Medications: Current Medications Acetaminophen (Tylenol 325mg Tab) 650 mg PO Q6H PRN; Protocol PRN Reason: Headache Acetylcysteine (Acetylcysteine 20%) 4 ml IH [id number] GRETEL PRN Reason: Protocol Last Admin: 09/20/17 07:41 Dose: Not Given Albuterol Sulfate (Albuterol 0.083% Inhal Marylin (2.5 Mg/3 Ml) Ud) 2.5 mg IH [id number] PRN PRN Reason: Shortness of Breath Aspirin (Ecotrin) 81 mg PO 0800 GRETEL PRN Reason: Protocol Last Admin: 09/19/17 08:20 Dose: 81 mg Atorvastatin Calcium (Lipitor) 10 mg PO DIN GRETEL PRN Reason: Protocol Last Admin: 09/19/17 17:27 Dose: 10 mg Benzonatate (Tessalon Perles) 100 mg PO TID GRETEL PRN Reason: Protocol Last Admin: 09/19/17 17:29 Dose: 100 mg Budesonide (Pulmicort Respules) 1 mg IH [id number] GRETEL PRN Reason: Protocol Last Admin: 09/20/17 07:41 Dose: 1 mg Cholecalciferol (Vitamin D) 1,000 intlu PO DAILY GRETEL PRN Reason: Protocol Last Admin: 09/19/17 09:38 Dose: 1,000 intlu Enoxaparin Sodium (Lovenox) 40 mg SC 0630 GRETEL PRN Reason: Protocol Last Admin: 09/20/17 05:48 Dose: 40 mg Furosemide (Lasix) 40 mg PO DAILY GRETEL Stop: 09/23/17 23:59 Last Admin: 09/19/17 09:35 Dose: 40 mg Ibuprofen (Motrin Tab) 400 mg PO Q6H PRN PRN Reason: Pain, moderate (4-7) Ipratropium [place] (Atrovent) 0.5 mg IH [id number] [facility] Last Admin: 09/20/17 07:41 Dose: Not Given Lactobacillus Acidophilus (Bacid Acidophilus) 1 cap PO BID [facility] PRN Reason: Protocol Last Admin: 09/19/17 17:27 Dose: 1 cap Levothyroxine Sodium (Synthroid) 100 mcg PO 0600 [facility] PRN Reason: Protocol Last Admin: 09/20/17 05:48 Dose: 100 mcg Metoprolol Tartrate (Lopressor) 25 mg PO 1800 [facility] PRN Reason: Protocol Last Admin: 09/19/17 17:27 Dose: Not Given Metoprolol Tartrate (Lopressor) 50 mg PO 0800 [facility] PRN Reason: Protocol Last Admin: 09/19/17 08:21 Dose: Not Given Ondansetron HCl (Zofran Odt) 4 mg PO Q8 PRN; Protocol PRN Reason: Nausea/Vomiting Pantoprazole Sodium (Protonix Ec Tab) 40 mg PO 0600 [facility] PRN Reason: Protocol Last Admin: 09/20/17 05:48 Dose: 40 mg Potassium Chloride (K-Dur 20 Meq Er Tab) 20 meq PO 0800 [facility] PRN Reason: Protocol Last Admin: 09/19/17 08:21 Dose: 20 meq - Labs Labs: 09/17/17 06:35 - Constitutional Appears: No Acute Distress - Head Exam Head Exam: NORMOCEPHALIC - Eye Exam Eye Exam: Normal appearance - ENT Exam ENT Exam: Mucous Membranes Moist - Respiratory Exam Respiratory Exam: Clear to Ausculation Bilateral, NORMAL BREATHING PATTERN - Cardiovascular Exam Cardiovascular Exam: +S1, +S2 Additional comments: PPM - GI/Abdominal Exam GI & Abdominal Exam: Soft, Normal Bowel Sounds - Extremities Exam Extremities Exam: Normal Capillary Refill - Neurological Exam Neurological Exam: Alert, Awake, Oriented x3 - Psychiatric Exam Psychiatric exam: Normal Affect - Skin Skin Exam: Dry, Normal Color, Warm Assessment and Plan - Assessment and Plan (Free Text) Assessment: 77 year old female who came to the ER due to shortness of breath and substernal chest pain at rest, non radiating, 3.5 days of productive cough. sputum is whitish to yellow. History of COPD (60 pack year history of smoking) , pacemaker, CHF , atrial fibrillation, GERD, anxiety, and depression. Cardiac work up was done earlier this year (May 2017) had abnormal stress test thus cardiac catheterization was done. Results were normal coronaries with LVEF of 65%. With this admission, she had exacerbation of COPD. Patient was treated with steroids taper, duonebs, ceftriaxone, and PO azithromycin with improvement in her dyspnea and cough. She was evaluated by physical therapy and recommended to go to the TCU for strengthening and unsteady gait. Plan: Denies shortness of breath but with cough Physical therapy and OT in progress Fall precaution Cardiac status stable On ASA 81 mg daily,Lipitor 10 mg daily,Lopressor 50 mg daily at AM and 25 mg daily PM Lasix 40 mg BID, Kdur 20 meq BID Continue current medications Continue current treatment Discharge planning Will follow up Plan and treatment discussed with Dr. Solomon
[2017-09-20] MEDS: Potassium Chloride 20 mEq ER Tab PO SCH (07:57)
[2017-09-20] MEDS: Lactobacillus Acidophilus 500 MU Cap PO SCH (10:00)
[2017-09-20] MEDS: Cholecalciferol 1,000 INTLU TAB PO SCH (10:04)
[2017-09-20 10:06] VITALS: BP 107/67
[2017-09-20 10:45] LABS: BLOOD UREA NITROGEN 22 mg/dL (7-21); CALCIUM 9.6 mg/dL (8.4-10.5); GFR AFRICAN-AMERICAN > 60; GFR NON-AFRICAN AMERICAN > 60
--- NOTE | 2017-09-20 13:27 | CP.PCM.DIS ---
<Fabio Arias - Last Filed: 09/20/17 16:27> Provider - Provider Date of Admission: 09/12/17 13:31 Attending physician: Destinee Morgan MD Primary care physician: Jefferson Solomon MD Consults: None Time Spent in preparation of Discharge (in minutes): 45 Hospital Course - Lab Results Lab Results: Most Recent Lab Values Sodium 142 mmol/L (132-148) 09/20/17 10:15 Potassium 4.8 mmol/L (3.6-5.0) 09/20/17 10:15 Chloride 99 mmol/L (98-107) 09/20/17 10:15 Carbon Dioxide 35 mmol/L (21-33) H 09/20/17 10:15 Anion Gap 12 (10-20) 09/20/17 10:15 BUN 22 mg/dL (7-21) H 09/20/17 10:15 Creatinine 0.8 mg/dl (0.7-1.2) 09/20/17 10:15 Est GFR ( Amer) > 60 09/20/17 10:15 Est GFR (Non-Af Amer) > 60 09/20/17 10:15 Random Glucose 121 mg/dL (70-110) H 09/20/17 10:15 Calcium 9.6 mg/dL (8.4-10.5) 09/20/17 10:15 Phosphorus 3.3 mg/dL (2.5-4.5) 09/20/17 10:15 Magnesium 2.1 mg/dL (1.7-2.2) 09/20/17 10:15 - Hospital Course Hospital Course: Patient was stable for TCU admission for Physical therapy. the remainder of her TCU stay was unremarkable. She tolerated PT well. Developed a cough that was reduced with Robitussin. BP was on the low side on the day of discharge so we instructed her to decrease her Lopressor from 75 to 50 with instructions to follow up with her regular doctor. Discharge Exam - Head Exam Head Exam: NORMOCEPHALIC - Eye Exam Eye Exam: EOMI, Normal appearance, PERRL Pupil Exam: NORMAL ACCOMODATION, PERRL - Respiratory Exam Respiratory Exam: Clear to PA & Lateral, UNREMARKABLE - Cardiovascular Exam Cardiovascular Exam: REGULAR RHYTHM. absent: Tachycardia - GI/Abdominal Exam GI & Abdominal Exam: Normal Bowel Sounds, Soft. absent: Distended, Tenderness - Neurological Exam Neurological exam: Alert, CN II-XII Intact, Normal Gait, Oriented x3, Reflexes Normal - Psychiatric Exam Psychiatric exam: Normal Affect, Normal Mood - Skin Skin Exam: Dry, Intact, Normal Color, Warm Discharge Plan - Discharge Medications Prescriptions: Docusate [Colace] 100 mg PO TID 5 Days cap guaiFENesin/Codeine [Robitussin w/Codeine] 5 ml PO Q4H PRN 3 Days udc PRN Reason: Cough predniSONE [predniSONE Tab] See Taper PO DAILY 7 Days tab - Follow Up Plan Condition: STABLE Disposition: HOME/ ROUTINE Instructions: Heart Healthy Diet, Heart Failure, Adult (DC), Acid Reflux ( Gastroesophageal Reflux Disease), Adult (DC), High Blood Pressure (DC), Anxiety , Adult (DC), Oxygen Therapy, Adult (DC), Exacerbation of COPD (DC), Heart Failure (DC), Heart Failure (GEN), Pacemaker (DC), Pacemaker (GEN), Pulmonary Edema (DC), Pulmonary Edema (GEN), Ascites (DC), Ascites (GEN) Additional Instructions: 1. Please follow up with your regular doctor in 7-10 days 2. Please take the following medications: Albuterol inhaler as needed for Shortness of breath Xanax 0.25 twice daily as needed Brovana 15mgh every 12 hours Aspirin 81 by mouth daily Lipitor 10mg by mouth daily Pulmicort 1mg every 12 hours Vitamin D3 1000 units daily Colace 100 mg by mouth three times per day while you are taking the Robitussin with codeine Nexium 40mg by mouth daily Fluticasone/salmeterol 500/50 1 puff twice daily Lasix 40mg by mouth twice daily Robitussin 5ml by mouth every 4 hours as needed for cough Synthroid 100 mcg by mouth daily Metoprolol 50mg by mouth daily Potassium chloride 20mg by mouth twice per day Prednisone taper: 40mg for one day then 30mg daily for two days then 20mg daily for 2 days then 10mg daily for 2 days Referrals: Jefferson Solomon MD [Primary Care Provider] - <Jefferson Joe - Last Filed: 09/20/17 17:07> Provider - Provider Date of Admission: 09/12/17 13:31 Attending physician: Destinee Morgan MD Primary care physician: Jefferson Solomon MD Time Spent in preparation of Discharge (in minutes): 35 Hospital Course - Lab Results Lab Results: Most Recent Lab Values Sodium 142 mmol/L (132-148) 09/20/17 10:15 Potassium 4.8 mmol/L (3.6-5.0) 09/20/17 10:15 Chloride 99 mmol/L (98-107) 09/20/17 10:15 Carbon Dioxide 35 mmol/L (21-33) H 09/20/17 10:15 Anion Gap 12 (10-20) 09/20/17 10:15 BUN 22 mg/dL (7-21) H 09/20/17 10:15 Creatinine 0.8 mg/dl (0.7-1.2) 09/20/17 10:15 Est GFR ( Amer) > 60 09/20/17 10:15 Est GFR (Non-Af Amer) > 60 09/20/17 10:15 Random Glucose 121 mg/dL (70-110) H 09/20/17 10:15 Calcium 9.6 mg/dL (8.4-10.5) 09/20/17 10:15 Phosphorus 3.3 mg/dL (2.5-4.5) 09/20/17 10:15 Magnesium 2.1 mg/dL (1.7-2.2) 09/20/17 10:15 Attending/Attestation - Attestation I have personally seen and examined this patient.: Yes I have fully participated in the care of the patient.: Yes I have reviewed all pertinent clinical information, including history, physical exam and plan: Yes Notes (Text): 09/20/17 17:02 Medical record note made by the resident after discussion with my direction and input after the patient was personally seen and examined by me. I have reviewed the chart and agree that the record accurately reflects by personal performance of the history, physical exam, data review, and medical decision-making, in the course for the patient. I have also personally directed the plan of care. In Summary is 76 year old female with PMH of COPD , CHF secondary to diastolic dysfunction, HTN, PUD, dyslipidemia, hypothyroidism, depression, gout , colonic polyps was initially admitted to [facility] inpatient with cough, dyspnea due to COPD exacerbation.Patient responded well to Nebulization, steroid and antibiotics and then was admitted to TCU for rehabilitation. Patient is still having dry cough, she is not wheezing, she is afebrile and is at her base line hypoxia 2.5 L via nasal canula.She will be discharged home on tapering dose of Prednisone and anti tussive in addition to her Neb. Blood pressure is low today, patient is asymptomatic, we will monitor, Metoprolol dose has been reduced to 50 mg po daily.This was discussed in detail with her. She will follow up with and her [employer] Operator Sue Urbina. Management plan was discussed in detail with patient. Education was provided.
== END 2017-09-20 14:47 | disposition home or self-care (01) | DRG 945 ==
LOC: TRCU 13:31
PROVIDERS: ADMIT Internal Medicine; ATTEND Hospitalist
PROC: F07Z9FZ Gait Training/Functional Ambulation Treatment using Assistive, Adaptive, Supportive or Protective Equipment (ICD-10-PCS; principal; 2017-09-13)
PROC: F07L6ZZ Therapeutic Exercise Treatment of Musculoskeletal System - Lower Back / Lower Extremity (ICD-10-PCS; 2017-09-13)
PROC: F08Z4FZ Home Management Treatment using Assistive, Adaptive, Supportive or Protective Equipment (ICD-10-PCS; 2017-09-19)
DX: R53.1 Weakness (principal); J44.1 Chronic obstructive pulmonary disease with (acute) exacerbation; I50.30 Unspecified diastolic (congestive) heart failure; R26.81 Unsteadiness on feet; I11.0 Hypertensive heart disease with heart failure; E03.9 Hypothyroidism, unspecified; E55.9 Vitamin D deficiency, unspecified; F32.9 Major depressive disorder, single episode, unspecified; F41.9 Anxiety disorder, unspecified; I48.91 Unspecified atrial fibrillation; K21.9 Gastro-esophageal reflux disease without esophagitis; E78.5 Hyperlipidemia, unspecified; J98.8 Other specified respiratory disorders; Z79.82 Long term (current) use of aspirin; Z99.81 Dependence on supplemental oxygen; Z87.891 Personal history of nicotine dependence; Z88.1 Allergy status to other antibiotic agents; Z87.11 Personal history of peptic ulcer disease; Z86.010 Personal history of colon polyps

== ENCOUNTER 2017-09-30 09:41 | Day surgery (SDC) | payer MEDICARE, OTHER ==
[2017-09-30 10:40] VITALS: BMI 33.7
[2017-09-30 10:45] LABS: EOS # 0.1 (0.0-0.7); GRAN # 6.3 (1.4-6.5); GRAN % 64.9 % (50.0-68.0); HEMOGLOBIN 15.7 g/dL (12.0-16.0); LYMPH # 2.5 (1.2-3.4); LYMPH % 26.2 % (22.0-35.0); MEAN CELL VOLUME 92.4 fl (80.0-105.0); MEAN CORPUSCULAR HEMOGLOBIN 32.1 pg (25.0-35.0); MEAN CORPUSCULAR HGB CONC 34.7 g/dl (31.0-37.0); MONO # 0.8 (0.1-0.6); MONO % 7.9 % (1.0-6.0); RBC 4.89 10^6/uL (3.5-6.1); RED CELL DISTRIBUTION WIDTH 14.1 % (11.5-14.5); WHITE BLOOD COUNT 9.7 10^3/ul (4.5-11.0)
[2017-09-30 10:51] LABS: ALB/GLOB RATIO 1.3 (1.1-1.8); ALBUMIN 4.2 g/dL (3.0-4.8); ALT/SGPT 44 U/L (7-56); AMYLASE 42 U/L (35-125); AST/SGOT 27 U/L (14-36); BLOOD UREA NITROGEN 40 mg/dL (7-21); CALCIUM 10.5 mg/dL (8.4-10.5); GAMMA GLUTAMYL TRANSPEPTIDASE 50 U/L (8-78); GFR AFRICAN-AMERICAN > 60; GFR NON-AFRICAN AMERICAN 54; LIPASE 85 U/L (23-300)
[2017-09-30] MEDS ORDERED: Sodium Chloride 0.9% 1,000 ML IV SCH (11:00)
[2017-09-30 11:13] LABS: INR 0.88 (0.93-1.08); PARTIAL THROMBOPLASTIN TIME 29.2 Seconds (25.1-36.5); PROTHROMBIN TIME 10.1 SECONDS (9.4-12.5)
[2017-09-30] MEDS ORDERED: Midazolam 2 MG/2 ML VIAL ONE (11:31)
[2017-09-30] MEDS ORDERED: Simethicone 40 mg/0.6 ml Liquid (30 ml) ONE (11:37)
[2017-09-30] MEDS ORDERED: Propofol 10 mg/ml Inj (20 ML) ONE (11:38)
[2017-09-30 14:49] VITALS: BP 105/65; PULSE 60; RESP 14; TEMP 98.1; O2SAT 96
== END 2017-09-30 15:12 | disposition home or self-care (01) ==
LOC: ENDO 09:41
PROVIDERS: ATTEND Internal Medicine Gastroenterology
DX: K86.2 Cyst of pancreas (principal); K29.50 Unspecified chronic gastritis without bleeding; K62.3 Rectal prolapse; K44.9 Diaphragmatic hernia without obstruction or gangrene; R13.10 Dysphagia, unspecified; K57.30 Diverticulosis of large intestine without perforation or abscess without bleeding; I10 Essential (primary) hypertension; J44.9 Chronic obstructive pulmonary disease, unspecified; E03.9 Hypothyroidism, unspecified; Z86.010 Personal history of colon polyps
CPT/HCPCS: 36415; 43239; 43259; 80053; 82150; 82977; 83690; 83735; 85025; 85610; 85730; 88305; 88342; J2001; J2250; J2704; J3010; J7030; J7040

== ENCOUNTER 2017-11-11 12:08 | Emergency (ER) | payer MEDICARE, OTHER ==
[2017-11-11 12:08] VITALS: BMI 33.7
--- NOTE | 2017-11-11 12:50 | ED PDOC ---
Arrival/HPI - History of Present Illness Time/Duration: < week Symptom Course: Intermittent Activities at Onset: Light Context: Home - General Chief Complaint: Shortness Of Breath Time Seen by Provider: 11/11/17 12:20 - History of Present Illness Narrative History of Present Illness (Text): 11/11/17 12:45 This is a 77 year old female with PMH of COPD, CHF with last EF of 62.5% in , HT, hypothyroidism, rheumatic heart disease, pacemaker, afib, diverticulitis and depression presenting to the ER for SOB and headache. Patient states headache is similar to past migraines and percuset provides moderate relief. Headache is gradual in onset and denies sudden onset of headache. SOB is associated with nausea nonproductive cough. Patient denies chest pain, fevers, chills hematemesis, hematochezia, numbness or tingling, leg swelling exacerbation, recent sick contacts, and recent travel. She is compliant with her medications Patient sees Dr. Cardoza as her PMD. (Kimberlyn Arnold) Past Medical History - Provider Review Nursing Documentation Reviewed: Yes - Infectious Disease Hx of Infectious Diseases: None - Tetanus Immunization Tetanus Immunization: Unknown - Cardiac Hx Cardiac Disorders: Yes Hx Pacemaker: Yes - Pulmonary Hx Respiratory Disorders: Yes Hx Chronic Obstructive Pulmonary Disease (COPD): Yes Hx Sleep Apnea: Yes - Neurological Hx Neurological Disorder: No - HEENT Hx HEENT Disorder: No - Renal Hx Renal Disorder: No - Endocrine/Metabolic Hx Endocrine Disorders: Yes Hx Hypothyroidism: Yes - Hematological/Oncological Hx Blood Transfusions: No - Integumentary Hx Dermatological Disorder: Yes - Musculoskeletal/Rheumatological Hx Musculoskeletal Disorders: Yes Hx Falls: Yes Hx Unsteady Gait: Yes - Gastrointestinal Hx Gastrointestinal Disorders: Yes Hx Gastroesophageal Reflux: Yes - Genitourinary/Gynecological Hx Genitourinary Disorders: Yes Hx Incontinence: Yes - Psychiatric Hx Psychophysiologic Disorder: No Hx Substance Use: No - Surgical History Hx Orthopedic Surgery: Yes (Right knee sx) - Anesthesia Hx Anesthesia Reactions: No Hx Malignant Hyperthermia: No - Suicidal Assessment Feels Threatened In Home Enviroment: No Family/Social History - Physician Review Nursing Documentation Reviewed: Yes Family/Social History: Unknown Family HX Smoking Status: Former Smoker Hx Alcohol Use: No Hx Substance Use: No Allergies/Home Meds Allergies/Adverse Reactions: Allergies levofloxacin [From Levaquin] Allergy (Severe, Verified 11/11/17 12:15) ANAPHYLAXIS Home Medications: Home Meds Medication Instructions Recorded Confirmed Aspirin [Ecotrin] 81 mg PO DAILY 09/01/15 09/30/17 Atorvastatin [Lipitor] 10 mg PO DIN 09/01/15 09/30/17 Cholecalciferol (Vitamin D3) 1,000 iu PO DAILY 09/01/15 09/30/17 [Vitamin D3] Esomeprazole Magnesium [Nexium] 40 mg PO DAILY 09/01/15 09/30/17 Levothyroxine [Synthroid] 100 mcg PO DAILY 09/01/15 09/30/17 Fluticasone/Salmeterol 500/50 1 puff INH BID 04/10/16 09/30/17 [Advair Diskus 500/50] Potassium Chloride [K-Tab ER] 20 meq PO BID 06/06/17 09/30/17 Furosemide [Lasix] 40 mg PO BID 07/23/17 09/30/17 Review of Systems - Physician Review All systems were reviewed & negative as marked: Yes - Review of Systems Constitutional: Normal. absent: Fevers Eyes: Normal. absent: Vision Changes ENT: Normal. absent: Hearing Changes Respiratory: SOB, Cough. absent: Sputum, Wheezing Cardiovascular: Normal. absent: Chest Pain, Edema, Syncope Gastrointestinal: Normal, Nausea. absent: Abdominal Pain, Diarrhea, Vomiting Genitourinary Female: Normal. absent: Dysuria, Frequency, Hematuria Musculoskeletal: Normal Skin: Normal Neurological: Headache. absent: Focal Weakness, Speech Changes, Facial Droop Psychiatric: Normal Physical Exam Vital Signs Reviewed: Yes Temperature: Afebrile Blood Pressure: Normal Pulse: Regular Respiratory Rate: Normal Appearance: Positive for: Well-Appearing, Non-Toxic, Comfortable Pain Distress: None Mental Status: Positive for: Alert and Oriented X 3 - Systems Exam Head: Present: Atraumatic, Normocephalic Pupils: Present: PERRL Extroacular Muscles: Present: EOMI Conjunctiva: Present: Normal Mouth: Present: Moist Mucous Membranes Neck: Present: Normal Range of Motion Respiratory/Chest: Present: Good Air Exchange, Wheezes, Other (mild wheezing present in B/L lower bases). No: Respiratory Distress, Accessory Muscle Use, Decreased Breath Sounds, Tachypneic Cardiovascular: Present: Regular Rate and Rhythm, Normal S1, S2. No: Murmurs, Tachycardic Abdomen: Present: Normal Bowel Sounds. No: Tenderness, Distention, Peritoneal Signs Back: Present: Normal Inspection Upper Extremity: Present: Normal Inspection. No: Cyanosis, Edema Lower Extremity: Present: Other (Chronic swelling is present in B/L lower extremities ). No: CALF TENDERNESS, Tenderness Neurological: Present: GCS=15, CN II-XII Intact, Speech Normal, Motor Func Grossly Intact, Normal Sensory Function Skin: Present: Warm, Dry, Normal Color. No: Rashes Psychiatric: Present: Alert, Oriented x 3, Normal Insight, Normal Concentration Vital Signs Temp Pulse Resp BP Pulse Ox 11/11/17 15:01 98.0 F 76 18 106/70 98 11/11/17 13:00 98.7 F 71 18 116/66 96 11/11/17 12:39 17 93 L 11/11/17 12:15 97.6 F 82 22 113/76 93 L Medical Decision Making ED Course and Treatment: 11/11/17 12:54 Impression: This is a 77 year old female with PMH of COPD, CHF with last EF of 62.5% in , HT, hypothyroidism, rheumatic heart disease, pacemaker, afib, diverticulitis and depression presenting to the ER for SOB and headache. Differential not limited to: COPD exacerbation vs CHF exacerbation vs migrain headache Plan: Will check blood work and give duonebs for SOB. Awaiting CT head. Progress: 11/11/17 13:24 CXRAY: no active disese. Patient resting comfortably, stable vitals and afebrile. 11/11/17 13:45 Patient's breathing better after duonebs and headache is improved. 11/11/17 14:38 CT Head: No acute intracranial abnormality (Kimberlyn Arnold) 11/11/17 13:03 EKG shows paced rhythm at 84bpm 11/11/17 15:03 Patient seen by resident and then evaluated by me. She is complaining of mild headache and some cough. Denies chest pain other than 1 episode last night. EKG as above. Trop negative. After tylenol and reglan, headache is resolved. Minimal wheezing appreciated which resolved after duonebs and steroids. Requesting discharge. AAox3 with normal vitals. Cxray negative. CT negative for mass. Instructed to follow-up with PMD 11/11/17 15:04 (Pearl Ruiz) - Lab Interpretations Lab Results: 11/11/17 12:55 11/11/17 12:55 Lab Results 11/11/17 13:00: Urine Color Yellow, Urine Appearance Clear, Urine pH 7.0, Ur Specific [place] <= 1.005, Urine Protein Negative, Urine Glucose (UA) Negative, Urine Ketones Negative, Urine Blood Negative, Urine Nitrate Negative, Urine Bilirubin Negative, Urine Urobilinogen 0.2, Ur Leukocyte Esterase Negative 11/11/17 12:55: Sodium 138, Potassium 3.8, Chloride 93 L, Carbon Dioxide 35 H, Anion Gap 14, BUN 29 H, Creatinine 0.9, Est GFR ( Amer) > 60, Est GFR ( Non-Af Amer) > 60, Random Glucose 112 H, Calcium 10.1, Phosphorus 3.5, Magnesium 1.6 L, Total Bilirubin 0.7, AST 21, ALT 22, Alkaline Phosphatase 76, Troponin I < 0.01, NT-Pro-B Natriuret Pep 157, Total Protein 7.5, Albumin 4.3, Globulin 3.3, Albumin/Globulin Ratio 1.3 11/11/17 12:55: WBC 9.5, RBC 4.46, Hgb 14.0, Hct 40.4, MCV 90.6, MCH 31.4, MCHC 34.7, RDW 14.1, Plt Count 230, MPV 9.8, Gran % 65.7, Lymph % (Auto) 22.3, [place] % (Auto) 10.9 H, Eos % (Auto) 1.0 L, Baso % (Auto) 0.1, Gran # 6.21, Lymph # ( Auto) 2.1, [place] # (Auto) 1.0 H, Eos # (Auto) 0.1, Baso # (Auto) 0.01 - RAD Interpretation Radiology Orders: 11/11/17 12:41 HEAD W/O CONTRAST [CT] Stat CHEST PORTABLE [RAD] Stat - Medication Orders Current Medication Orders: Discontinued Medications Acetaminophen (Tylenol 325mg Tab) 975 mg PO STAT STA Stop: 11/11/17 12:57 Last Admin: 11/11/17 13:14 Dose: 975 mg MAR Pain/Vitals Document 11/11/17 13:14 [email or web address] (Rec: 11/11/17 13:14 [email or web address] [id number]) Pain Reassessment Is This A Pain ReAssessment? No Sleep Is patient sleeping during reassessment? No Presence of Pain Presence of Pain Yes Pain Scale Used Pain Scale Used Numeric Location Pain Location Body Artificial Pearl Maker Description Constant Intensity 6 Scale Used Numeric Pain Behavior Facial Grimacing Aggravating Factors Changing Position Alleviating Factors Medication Albuterol/Ipratropium (Duoneb 3 Mg/0.5 Mg (3 Ml) Ud) 3 ml IH Q15M GRETEL Stop: 11/11/17 13:16 Last Admin: 11/11/17 13:58 Dose: 3 ml Diphenhydramine HCl (Benadryl) 25 mg PO STAT STA Stop: 11/11/17 12:57 Last Admin: 11/11/17 13:58 Dose: 25 mg Methylprednisolone (Solu-Medrol) 125 mg IVP STAT STA Stop: 11/11/17 12:42 Last Admin: 11/11/17 13:58 Dose: 125 mg IVP Administration Document 11/11/17 13:58 [email or web address] (Rec: 11/11/17 13:58 [email or web address] [id number]) Charges for Administration # of IVP Administrations 1 Metoclopramide HCl (Reglan) 10 mg IVP STAT STA Stop: 11/11/17 12:57 Last Admin: 11/11/17 13:58 Dose: 10 mg IVP Administration Document 11/11/17 13:58 [email or web address] (Rec: 11/11/17 13:58 [email or web address] [id number]) Charges for Administration # of IVP Administrations 1 - 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 / has examined the patient and agrees with the treatment plan. Disposition/Present on Arrival - Present on Arrival Any Indicators Present on Arrival: No History of DVT/PE: No History of Uncontrolled Diabetes: No Urinary Catheter: No History of Decub. Ulcer: No History Surgical Site Infection Following: None - Disposition Have Diagnosis and Disposition been Completed?: Yes Disposition Time: 15:00 Patient Plan: Discharge - Disposition Diagnosis: COPD (chronic obstructive pulmonary disease) Disposition: HOME/ ROUTINE Patient Problems: Current Active Problems Problem Status Onset COPD (chronic obstructive pulmonary disease) Acute Condition: GOOD Discharge Instructions (ExitCare): Chronic Obstructive Pulmonary Disease (COPD) , Including Emphysema Additional Instructions: LORENA AGUILAR, thank you for letting us take care of you today. Your provider was Pearl Ruiz MD and you were treated for TROUBLE BREATHING. The emergency medical care you received today was directed at your acute symptoms. If you were prescribed any medication, please fill it and take as directed. It may take several days for your symptoms to resolve. Return to the Emergency Department if your symptoms worsen, do not improve, or if you have any other problems. Please contact your doctor or call one of the physicians/clinics you have been referred to that are listed on the Patient Visit Information form that is included in your discharge packet. Bring any paperwork you were given at discharge with you along with any medications you are taking to your follow up visit. Our treatment cannot replace ongoing medical care by a primary care provider outside of the emergency department. Thank you for allowing the [facility] team to be part of your care today. If you had an X-Ray or CT scan: A Radiologist will review the ED reading if any change in treatment is needed we will contact you. If you had a blood, urine, or wound culture: It will take several days for the results, if any change in treatment is needed we will contact you. If you had an STI test: It will take 48 hours for the results. Please call after 1 week if you have not heard back. Please followup with your PCP. Please come back to the ER for any difficulty breathing or shortness of breath related symptoms. Prescriptions: Albuterol HFA [Ventolin HFA 90 mcg/actuation (8 g)] 2 puff IH [id number] PRN #1 puff PRN Reason: Shortness Of Breath Prednisone 50 mg PO DAILY #3 tab Referrals: Jefferson Solomon MD [Primary Care Provider] - Follow up with primary Forms: [employer] (Romansh)
[2017-11-11] MEDS ORDERED: DiphenhydrAMINE 12.5 mg/5 ml LIQ UD (5 ml) PO STA (12:56)
[2017-11-11] MEDS: Albuterol-Ipratrop 3 mg / 0.5 (3 ml) UD IH SCH ×3 (13:00→13:58)
[2017-11-11 13:01] VITALS: RESP 18
[2017-11-11 13:03] LABS: BASO # 0.01 K/mm3 (0.0-2.0); BASO % 0.1 % (0.0-3.0); EOS # 0.1 (0.0-0.7); GRAN # 6.21 (1.4-6.5); GRAN % 65.7 % (50.0-68.0); LYMPH # 2.1 (1.2-3.4); LYMPH % 22.3 % (22.0-35.0); MEAN CELL VOLUME 90.6 fl (80.0-105.0); MEAN CORPUSCULAR HEMOGLOBIN 31.4 pg (25.0-35.0); MEAN CORPUSCULAR HGB CONC 34.7 g/dl (31.0-37.0); MEAN PLATELET VOLUME 9.8 fl (7.0-11.0); MONO % 10.9 % (1.0-6.0); RBC 4.46 10^6/uL (3.5-6.1); RED CELL DISTRIBUTION WIDTH 14.1 % (11.5-14.5); WHITE BLOOD COUNT 9.5 10^3/ul (4.5-11.0)
--- NOTE | 2017-11-11 13:08 | RAD ---
Date of service: 11/11/2017 HISTORY: SOB COMPARISON: 09/08/2017 FINDINGS: LUNGS: No active pulmonary disease. PLEURA: No significant pleural effusion identified, no pneumothorax apparent. CARDIOVASCULAR: Normal. OSSEOUS STRUCTURES: No significant abnormalities. VISUALIZED UPPER ABDOMEN: Normal. OTHER FINDINGS: Duo lead pacemaker IMPRESSION: No active disease.
[2017-11-11 13:24] LABS: ALB/GLOB RATIO 1.3 (1.1-1.8); ALBUMIN 4.3 g/dL (3.0-4.8); ALT/SGPT 22 U/L (7-56); AST/SGOT 21 U/L (14-36); BLOOD UREA NITROGEN 29 mg/dL (7-21); CALCIUM 10.1 mg/dL (8.4-10.5); GFR AFRICAN-AMERICAN > 60; GFR NON-AFRICAN AMERICAN > 60
[2017-11-11 13:25] LABS: URINE BILIRUBIN NEGATIVE (NEGATIVE); URINE BLOOD NEGATIVE (NEGATIVE); URINE GLUCOSE (UA) NEGATIVE (NEGATIVE); URINE LEUKOCYTE ESTERASE NEGATIVE Leu/uL (NEGATIVE); URINE PROTEIN NEGATIVE mg/dL (<30 mg/dL); URINE UROBILINOGEN 0.2 E.U./dL (<1 E.U./dL)
[2017-11-11 13:33] LABS: B-TYPE NATRIURETIC PEPTIDE 157 pg/mL (0-450); TROPONIN I < 0.01 ng/mL
[2017-11-11 13:37] LABS: URINE COLOR YELLOW (YELLOW)
[2017-11-11 13:38] LABS: URINE APPEARANCE CLEAR (CLEAR)
--- NOTE | 2017-11-11 13:49 | CT ---
Date of service: 11/11/2017 PROCEDURE: CT HEAD WITHOUT CONTRAST. HISTORY: Headache COMPARISON: 09/08/2017. TECHNIQUE: Axial computed tomography images were obtained through the head/brain without intravenous contrast. Radiation dose: Total exam DLP = 1053.42 mGy-cm. This CT exam was performed using one or more of the following dose reduction techniques: Automated exposure control, adjustment of the mA and/or kV according to patient size, and/or use of iterative reconstruction technique. FINDINGS: HEMORRHAGE: No intracranial hemorrhage. BRAIN: There are mild chronic microangiopathic changes. There is no mass, mass effect or abnormal extra-axial fluid collection. There is no territorial infarction. VENTRICLES: There asymmetry in the size of the lateral ventricles, right larger than left, an anatomic variant. There is mild age-related global parenchymal volume loss and proportionate enlargement of the ventricles and cortical sulci. CALVARIUM: The skull base and calvarium are normal. PARANASAL SINUSES: Predominantly clear. MASTOID AIR CELLS: Predominantly clear. OTHER FINDINGS: None. IMPRESSION: No acute intracranial abnormality.
[2017-11-11 15:02] VITALS: BP 106/70; PULSE 76; TEMP 98; O2SAT 98
--- NOTE | 2017-11-12 12:43 | CARD ---
APPROVED REPORT Date of service: 11/11/2017 EKG Measurement Heart [id number] <Conclusion> AV sequential or dual chamber electronic pacemaker
== END 2017-11-11 15:01 | disposition home or self-care (01) ==
LOC: ED 12:08
DX: J44.9 Chronic obstructive pulmonary disease, unspecified (principal); I48.91 Unspecified atrial fibrillation; I50.9 Heart failure, unspecified; Z95.0 Presence of cardiac pacemaker; Z87.891 Personal history of nicotine dependence
CPT/HCPCS: 70450; 71045; 80053; 81003; 83735; 83880; 84100; 84484; 85025; 93005; 96374; 96375; 99282; J2765; J2930

== ENCOUNTER 2017-11-14 10:42 | Inpatient (IN) | payer MEDICARE, OTHER ==
[2017-11-14 10:51] VITALS: BMI 33.3
--- NOTE | 2017-11-14 11:01 | ED PDOC ---
Arrival/HPI - General Chief Complaint: Shortness Of Breath Time Seen by Provider: 11/14/17 11:00 Historian: Patient - History of Present Illness Narrative History of Present Illness (Text): 11/14/17 11:05 77 year old female, whose PMH includes pacemaker, COPD, and hypothyroidism, who presents to the emergency department complaining of shortness of breath worsening since one day ago. Patient reports she was admitted to the hospital recently for a migraine and states it has developed again, associated with headache, generalized fatigue, fever, cough, nausea, lack of appetite, and foot pain since 2 days ago. Patient notes she is unable to ambulate due to the foot pain, and denies any trauma or falls. Patient denies chest pain, vomiting, diarrhea, dysuria, hematuria, numbness on extremities, back pain, or other complaints. Additionally, patient states "being out of it" for the past couple of days. No other complaints were reported. Time/Duration: < week Symptom Onset: Gradual Symptom Course: Worsening Context: Home Past Medical History - Provider Review Nursing Documentation Reviewed: Yes - Infectious Disease Hx of Infectious Diseases: None - Tetanus Immunization Tetanus Immunization: Unknown - Cardiac Hx Cardiac Disorders: Yes Hx Pacemaker: Yes - Pulmonary Hx Respiratory Disorders: Yes Hx Chronic Obstructive Pulmonary Disease (COPD): Yes Hx Sleep Apnea: Yes - Neurological Hx Neurological Disorder: No - HEENT Hx HEENT Disorder: No - Renal Hx Renal Disorder: No - Endocrine/Metabolic Hx Endocrine Disorders: Yes Hx Hypothyroidism: Yes - Hematological/Oncological Hx Blood Disorders: No Hx Blood Transfusions: No - Integumentary Hx Dermatological Disorder: Yes (skin tags) - Musculoskeletal/Rheumatological Hx Musculoskeletal Disorders: Yes Hx Falls: Yes Hx Unsteady Gait: Yes - Gastrointestinal Hx Gastrointestinal Disorders: Yes Hx Gastroesophageal Reflux: Yes - Genitourinary/Gynecological Hx Genitourinary Disorders: Yes Hx Incontinence: Yes - Psychiatric Hx Psychophysiologic Disorder: No Hx Substance Use: No - Surgical History Hx Orthopedic Surgery: Yes (Right knee surgery) Other/Comment: carpal tunnel right hand. pacemaker - Anesthesia Hx Anesthesia: Yes Hx Anesthesia Reactions: No Hx Malignant Hyperthermia: No - Suicidal Assessment Feels Threatened In Home Enviroment: No Family/Social History - Physician Review Nursing Documentation Reviewed: Yes Family/Social History: Unknown Family HX Smoking Status: Former Smoker Hx Alcohol Use: No Hx Substance Use: No Allergies/Home Meds Allergies/Adverse Reactions: Allergies levofloxacin [From Levaquin] Allergy (Severe, Verified 11/11/17 12:15) ANAPHYLAXIS Home Medications: Home Meds Medication Instructions Recorded Confirmed Aspirin [Ecotrin] 81 mg PO DAILY 09/01/15 09/30/17 Atorvastatin [Lipitor] 10 mg PO DIN 09/01/15 09/30/17 Cholecalciferol (Vitamin D3) 1,000 iu PO DAILY 09/01/15 09/30/17 [Vitamin D3] Esomeprazole Magnesium [Nexium] 40 mg PO DAILY 09/01/15 09/30/17 Levothyroxine [Synthroid] 100 mcg PO DAILY 09/01/15 09/30/17 Fluticasone/Salmeterol 500/50 1 puff INH BID 04/10/16 09/30/17 [Advair Diskus 500/50] Potassium Chloride [K-Tab ER] 20 meq PO BID 06/06/17 09/30/17 Furosemide [Lasix] 40 mg PO BID 07/23/17 09/30/17 Review of Systems - Review of Systems Constitutional: Fatigue, Fevers ENT: absent: Sinus Congestion Respiratory: SOB, Cough Cardiovascular: absent: Chest Pain Gastrointestinal: Nausea, Appetite Changes. absent: Diarrhea, Vomiting Genitourinary Female: absent: Dysuria, Hematuria Musculoskeletal: absent: Back Pain Skin: absent: Rash Neurological: Headache. absent: Dizziness Endocrine: absent: Diaphoresis Physical Exam Vital Signs Reviewed: Yes Vital Signs Temp Pulse Resp BP Pulse Ox 11/14/17 11:07 18 11/14/17 10:48 100.1 F H 71 17 113/54 L 92 L 11/14/17 10:42 100.1 F H 68 18 113/54 L 94 L Temperature: Febrile Blood Pressure: Hypotensive Pulse: Regular Respiratory Rate: Normal Appearance: Positive for: Well-Appearing, Non-Toxic, Comfortable Pain Distress: None Mental Status: Positive for: Alert and Oriented X 3 - Systems Exam Head: Present: Atraumatic, Normocephalic Pupils: Present: PERRL Extroacular Muscles: Present: EOMI Conjunctiva: Present: Normal Respiratory/Chest: Present: Wheezes (low pitch wheezing bilateral bases), Rhonchi (right base ). No: Clear to Auscultation, Good Air Exchange, Respiratory Distress, Accessory Muscle Use, Retracting Cardiovascular: Present: Regular Rate and Rhythm, Normal S1, S2. No: Murmurs Abdomen: Present: Normal Bowel Sounds. No: Tenderness, Distention, Peritoneal Signs, Rebound, Guarding Lower Extremity: Present: Edema (2+ bilateral lower ankle ), Normal ROM, Swelling, Erythema, Neurovascularly Intact, Capillary Refill < 2 s. No: Deformity Neurological: Present: GCS=15, CN II-XII Intact, Speech Normal Skin: Present: Warm, Dry, Normal Color. No: Rashes Psychiatric: Present: Alert, Oriented x 3, Normal Insight, Normal Concentration Medical Decision Making ED Course and Treatment: 11/14/17 Impression: 77 year old female with low pitch wheezing at bilateral bases and rhonchi right base complaining of shortness of breath associated with general fatigue, headache, fever and cough since a couple of days. Plan: -- Chest X-ray -- Urinalysis -- Labs -- Toradol -- Reassess and disposition Progress Notes: 11/14/17 12:50 Chest X-ray: Creator: Herrera Fuller MD COMPARISON: 11/11/2017 FINDINGS: LUNGS: No active pulmonary disease. PLEURA: No significant pleural effusion identified, no pneumothorax apparent. CARDIOVASCULAR: Mild cardiomegaly. Dual lead pacemaker OSSEOUS STRUCTURES: No significant abnormalities. VISUALIZED UPPER ABDOMEN: Normal. OTHER FINDINGS: None. IMPRESSION: No active disease. Patient given toradol IVP for headache and fever. On re-eval patient sleeping comfortably. Pulse ox 92%. Woke patient up, she states that she feels "okay" but that "something isn't right". Discussed admission vs discharge, patient would like to be admitted for further management. Case discussed with Dr. Vasquez, hospitalist environmental construction engineer, who accepts admission. Duoneb treatment ordered for patient as she feels somewhat short of breath. Upon arrival patient had declined breathing treatment because she had just taken one at home before coming to the emergency department. - Lab Interpretations Lab Results: 11/14/17 11:00 11/14/17 11:00 Lab Results 11/14/17 11:20: Urine Color Yellow, Urine Appearance Clear, Urine pH 7.5, Ur Specific [place] 1.010, Urine Protein Negative, Urine Glucose (UA) Negative, Urine Ketones Negative, Urine Blood Negative, Urine Nitrate Negative, Urine Bilirubin Negative, Urine Urobilinogen 0.2, Ur Leukocyte Esterase Negative 11/14/17 11:00: Sodium 139, Potassium 4.2, Chloride 94 L, Carbon Dioxide 33, Anion Gap 16, BUN 25 H, Creatinine 0.9, Est GFR ( Amer) > 60, Est GFR ( Non-Af Amer) > 60, Random Glucose 147 H, Calcium 9.8, Total Bilirubin 1.0, AST 39 H D, ALT 42, Alkaline Phosphatase 88, Troponin I < 0.01, NT-Pro-B Natriuret Pep 308, Total Protein 7.7, Albumin 4.4, Globulin 3.4, Albumin/Globulin Ratio 1.3 11/14/17 11:00: WBC 12.7 H D, RBC 4.45, Hgb 13.9, Hct 41.1, MCV 92.4, MCH 31.2, MCHC 33.8, RDW 14.8 H, Plt Count 213, MPV 9.8, Gran % 75.1 H, Lymph % (Auto) 11.9 L, [place] % (Auto) 12.3 H, Eos % (Auto) 0.6 L, Baso % (Auto) 0.1, Gran # 9.56 H, Lymph # (Auto) 1.5, [place] # (Auto) 1.6 H, Eos # (Auto) 0.1, Baso # (Auto ) 0.01 I have reviewed the lab results: Yes - RAD Interpretation Radiology Orders: 11/14/17 11:02 CHEST PORTABLE [RAD] Stat Chemical Worker: Radiologist - EKG Interpretation EKG Interpretation (Text): 10:52- V-paced rhythm, rate 64, QTc 396, no concordant ST changes Interpreted by ED Physician: Yes Type: 12 lead EKG - Medication Orders Current Medication Orders: Vancomycin HCl (Vancomycin 1gm) 1 gm in 250 mls @ 167 mls/hr IVPB DAILY GRETEL PRN Reason: Protocol Discontinued Medications Albuterol/Ipratropium (Duoneb 3 Mg/0.5 Mg (3 Ml) Ud) 3 ml IH STAT STA Stop: 11/14/17 13:07 Last Admin: 11/14/17 13:10 Dose: 3 ml Ketorolac Tromethamine (Toradol) 30 mg IVP STAT STA Stop: 11/14/17 11:03 Last Admin: 11/14/17 11:10 Dose: 30 mg MAR Pain Assessment Document 11/14/17 11:10 SRE (Rec: 11/14/17 11:10 SRE [id number]) Pain Reassessment Is this a pain reassessment? Yes Sleep Is patient sleeping during reassessment? No Presence of Pain Presence of Pain Yes Pain Scale Used Pain Scale Used Numeric Location Left, Right or Bilateral Left Pain Location Body Site Leg Description Description Burning IVP Administration Document 11/14/17 11:10 SRE (Rec: 11/14/17 11:10 SRE [id number]) Charges for Administration # of IVP Administrations 1 Re-Assess: HERNAN Pain Assessment Document 11/14/17 12:10 SRE (Rec: 11/14/17 13:10 SRE [id number]) Pain Reassessment Is this a pain reassessment? Yes Sleep Is patient sleeping during reassessment? No Presence of Pain Presence of Pain No - Scribe Statement The provider has reviewed the documentation as recorded by the Scribe Melanie Mathew Provider Scribe Attestation: All medical record entries made by the Scribe were at my direction and personally dictated by me. I have reviewed the chart and agree that the record accurately reflects my personal performance of the history, physical exam, medical decision making, and the department course for this patient. I have also personally directed, reviewed, and agree with the discharge instructions and disposition. Disposition/Present on Arrival - Present on Arrival Any Indicators Present on Arrival: No History of DVT/PE: No History of Uncontrolled Diabetes: No Urinary Catheter: No History of Decub. Ulcer: No History Surgical Site Infection Following: None - Disposition Have Diagnosis and Disposition been Completed?: Yes Diagnosis: COPD exacerbation, Generalized weakness Disposition: HOSPITALIZED Disposition Time: 13:10 Patient Plan: Admission Patient Problems: Current Active Problems Problem Status Onset COPD exacerbation Acute Generalized weakness Acute Condition: STABLE
[2017-11-14 11:11] LABS: BASO # 0.01 K/mm3 (0.0-2.0); BASO % 0.1 % (0.0-3.0); EOS # 0.1 (0.0-0.7); EOS % 0.6 % (1.5-5.0); GRAN # 9.56 (1.4-6.5); GRAN % 75.1 % (50.0-68.0); HEMOGLOBIN 13.9 g/dL (12.0-16.0); LYMPH # 1.5 (1.2-3.4); LYMPH % 11.9 % (22.0-35.0); MEAN CELL VOLUME 92.4 fl (80.0-105.0); MEAN CORPUSCULAR HEMOGLOBIN 31.2 pg (25.0-35.0); MEAN CORPUSCULAR HGB CONC 33.8 g/dl (31.0-37.0); MEAN PLATELET VOLUME 9.8 fl (7.0-11.0); MONO # 1.6 (0.1-0.6); MONO % 12.3 % (1.0-6.0); RBC 4.45 10^6/uL (3.5-6.1); RED CELL DISTRIBUTION WIDTH 14.8 % (11.5-14.5); WHITE BLOOD COUNT 12.7 10^3/ul (4.5-11.0)
[2017-11-14 11:32] LABS: PH,URINE 7.5 (4.7-8.0); URINE BILIRUBIN NEGATIVE (NEGATIVE); URINE BLOOD NEGATIVE (NEGATIVE); URINE GLUCOSE (UA) NEGATIVE (NEGATIVE); URINE LEUKOCYTE ESTERASE NEGATIVE Leu/uL (NEGATIVE); URINE PROTEIN NEGATIVE mg/dL (<30 mg/dL); URINE UROBILINOGEN 0.2 E.U./dL (<1 E.U./dL)
[2017-11-14 11:37] LABS: B-TYPE NATRIURETIC PEPTIDE 308 pg/mL (0-450); TROPONIN I < 0.01 ng/mL
[2017-11-14 11:43] LABS: URINE APPEARANCE CLEAR (CLEAR); URINE COLOR YELLOW (YELLOW)
[2017-11-14 11:43] LABS: ALB/GLOB RATIO 1.3 (1.1-1.8); ALBUMIN 4.4 g/dL (3.0-4.8); ALT/SGPT 42 U/L (7-56); AST/SGOT 39 U/L (14-36); BLOOD UREA NITROGEN 25 mg/dL (7-21); CALCIUM 9.8 mg/dL (8.4-10.5); GFR AFRICAN-AMERICAN > 60; GFR NON-AFRICAN AMERICAN > 60
--- NOTE | 2017-11-14 12:28 | RAD ---
Date of service: 11/14/2017 HISTORY: dyspnea COMPARISON: 11/11/2017 FINDINGS: LUNGS: No active pulmonary disease. PLEURA: No significant pleural effusion identified, no pneumothorax apparent. CARDIOVASCULAR: Mild cardiomegaly. Dual lead pacemaker OSSEOUS STRUCTURES: No significant abnormalities. VISUALIZED UPPER ABDOMEN: Normal. OTHER FINDINGS: None. IMPRESSION: No active disease.
[2017-11-14] MEDS ORDERED: Albuterol-Ipratrop 3 mg / 0.5 (3 ml) UD IH STA ×2 (13:06→14:21)
[2017-11-14 14:07] LABS: ARTERIAL BLOOD GAS HCO3 30.3 mmol/L (21-28); ARTERIAL BLOOD GAS O2 SAT 98.6 % (95-98); ARTERIAL BLOOD GAS PCO2 38 mm/Hg (35-45); ARTERIAL BLOOD GAS PH 7.51 (7.35-7.45); ARTERIAL BLOOD GAS TCO2 31.5 mmol.L (22-28)
[2017-11-14] MEDS ORDERED: Albuterol-Ipratrop 3 mg / 0.5 (3 ml) UD IH PRN (14:46)
[2017-11-14] MEDS ORDERED: Benzocaine/Menthol (Cepacol) Lozenge MT PRN (14:47)
[2017-11-14] MEDS ORDERED: Pneumococcal 23-Valent Vaccine IM ONE (15:07)
[2017-11-14] MEDS ORDERED: Lidocaine 1% Inj (20ml) IJ STA (15:21)
[2017-11-14] MEDS ORDERED: Albuterol-Ipratrop 3 mg / 0.5 (3 ml) UD IH SCH (15:30)
--- NOTE | 2017-11-14 17:22 | US ---
HISTORY: Leg pain and swelling. Evaluate for DVT PHYSICIAN(S): Valentin Mai MD. TECHNIQUE: Duplex sonography and color-flow Doppler with graded compression were used to evaluate the deep venous systems of both lower extremities. The exam is somewhat limited by body habitus and edema. FINDINGS: The visualized deep venous systems of both lower extremities are sonographically normal and compressible. Normal wave forms and augmentation are seen. There is no sonographic evidence for deep venous thrombosis in the visualized segments of both lower extremities. IMPRESSION: No sonographic evidence for deep venous thrombosis in the visualized segments of both lower extremities.
--- NOTE | 2017-11-14 17:42 | CARD ---
APPROVED REPORT Date of service: 11/14/2017 EKG Measurement Heart [id number] <Conclusion> Electronic ventricular pacemaker Underlying thaism SYDNEER
[2017-11-14] MEDS ORDERED: Levalbuterol 0.63 MG/3 ML Inhal Soln UD IH PRN (17:54)
[2017-11-14] MEDS ORDERED: Enoxaparin 40 mg Syringe SC STA (17:55)
--- NOTE | 2017-11-14 20:57 | CP.PCM.HP ---
<PayamGlen - Last Filed: 11/14/17 20:50> History of Present Illness - History of Present Illness History of Present Illness: Medicine H/P for Dr. Vasquez: Payam PGY - 2, IM Chief Complaint: SOB, Generalized Weakness HPI: 77 year old female with past medical history pertinent for COPD presents with a week duration of worsening shortness of breath and generalized weakness. Patient recently came to [facility] ED and was sent home on steroids and advised to use her nebulizer treatments. Patient denies associated chest pain; but does admit to a headache with nausea, which was present on last admission, when head CT was negative. Headache was resolved with toradol in the ED. Review of Systems: 12 point ROS obtained negative except as per HPI PSH: Rright knee surgery, pacemaker insertion PMH: COPD, CHF, atrial fibrillation, anxiety, and depression Allergies: Levofloxacin Social: Sixty pack year history of smoking, denies alcohol or illicit drug use Home Meds: Reviewed Family Hx: Non-contributory Present on Admission - Present on Admission Any Indicators Present on Admission: No Past Patient History - Infectious Disease Hx of Infectious Diseases: None - Tetanus Immunizations Tetanus Immunization: Unknown - Past Medical History & Family History Past Medical History?: Yes - Past Social History Smoking Status: Former Smoker - CARDIAC Hx Cardiac Disorders: Yes Hx Circulatory Problems: Yes Hx Hypercholesterolemia: Yes Hx Pacemaker: Yes (LCW) Hx Peripheral Edema: Yes Hx Peripheral Vascular Disease: Yes - PULMONARY Hx Respiratory Disorders: Yes (USED TO SMOKE CIGARETTES-QUIT) Hx Chronic Obstructive Pulmonary Disease (COPD): Yes Hx Pneumonia: Yes Hx Sleep Apnea: Yes - NEUROLOGICAL Hx Neurological Disorder: Yes Hx Dizziness: Yes - HEENT Hx HEENT Problems: Yes Hx Deafness: Yes - RENAL Hx Chronic Kidney Disease: No - ENDOCRINE/METABOLIC Hx Endocrine Disorders: Yes Hx Hypothyroidism: Yes - HEMATOLOGICAL/ONCOLOGICAL Hx Blood Disorders: No - INTEGUMENTARY Hx Dermatological Problems: Yes (skin tags) Other/Comment: 11-14-17 BILATERAL LE CELLULITIS-REDDENED,ERYTHEMA.DRY SKIN,EDEMA +2.TOP OF FEET +2 PITTING EDEMA. - MUSCULOSKELETAL/RHEUMATOLOGICAL Hx Musculoskeletal Disorders: Yes Hx Falls: Yes Hx Unsteady Gait: Yes (CANE) - GASTROINTESTINAL Hx Gastrointestinal Disorders: Yes (CONSTIPATION,COLON POLYPS,GASTRITIS) Hx Gastroesophageal Reflux: Yes Hx Pancreatitis: Yes Other/Comment: POOR APPETTITE - GENITOURINARY/GYNECOLOGICAL Hx Genitourinary Disorders: Yes Hx Incontinence: Yes - PSYCHIATRIC Hx Psychophysiologic Disorder: Yes Hx Anxiety: Yes Hx Depression: Yes Hx Substance Use: No - SURGICAL HISTORY Hx Surgeries: Yes (TONSILLECTOMY) Hx Cardiac Catheterization: Yes Hx Orthopedic Surgery: Yes (Right knee surgery) Other/Comment: carpal tunnel right hand. pacemaker - ANESTHESIA Hx Anesthesia: Yes Hx Anesthesia Reactions: No Hx Malignant Hyperthermia: No Meds Allergies/Adverse Reactions: Allergies Allergy/AdvReac Type Severity Reaction Status Date / Time levofloxacin [From Levaquin] Allergy Severe ANAPHYLAXIS Verified 11/14/17 14:27 Physical Exam - Constitutional Appears: Well - Head Exam Head Exam: ATRAUMATIC, NORMAL INSPECTION, NORMOCEPHALIC - Eye Exam Eye Exam: EOMI, Normal appearance, PERRL Pupil Exam: NORMAL ACCOMODATION, PERRL - ENT Exam ENT Exam: Mucous Membranes Moist, Normal Exam - Neck Exam Neck exam: Positive for: Normal Inspection - Respiratory Exam Respiratory Exam: Decreased Breath Sounds, Wheezes, NORMAL BREATHING PATTERN - Cardiovascular Exam Cardiovascular Exam: REGULAR RHYTHM, RRR, +S1, +S2. absent: Gallop, Rubs, Systolic Murmur - GI/Abdominal Exam GI & Abdominal Exam: Normal Bowel Sounds, Soft. absent: Tenderness - Extremities Exam Extremities exam: Positive for: pedal edema Additional comments: Erythema above ankles bilaterally with associated calf tenderness - Back Exam Back exam: NORMAL INSPECTION - Neurological Exam Neurological exam: Alert, CN II-XII Intact, Normal Gait, Oriented x3, Reflexes Normal - Psychiatric Exam Psychiatric exam: Normal Affect, Normal Mood - Skin Skin Exam: Dry, Intact, Normal Color, Warm Results - Vital Signs Recent Vital Signs: Last Vital Signs Temp 97.8 F 11/14/17 16:27 Pulse 68 11/14/17 18:00 Resp 19 11/14/17 16:27 BP 98/60 L 11/14/17 16:27 Pulse Ox 97 11/14/17 16:27 - Labs Result Diagrams: 11/14/17 11:00 11/14/17 11:00 Labs: Laboratory Results - last 24 hr 11/14/17 11/14/17 13:29 14:00 pCO2 38 pO2 76.0 L HCO3 30.3 H ABG pH 7.51 H ABG Total CO2 31.5 H ABG O2 Saturation 98.6 H ABG Base Excess 6.9 H ABG Potassium 3.7 Sodium 138.0 Chloride 105.0 Glucose 129 H Lactate 0.7 FiO2 21.0 POC Glucose (mg/dL) 120 H Arterial Blood Potassium 3.7 Assessment & Plan - Assessment and Plan (Free Text) Assessment: 77 year old female with pertinent medical history of CHF and COPD presents with shortness of breath. Patient was still short of breath even after 2 rounds of duonebs in ED; she was satting around 89-90% as well. This in conjunction with her LE erythema and calf tenderness was concerning for DVT/PE - but U/s LE was negative and patient' s sats improved after another round of duonebs. CXR was negative for any consolidation or fluid, thus at this time shortness of breath most likely 2/2 COPD exacerbation. In light of productive cough, however, PNA is still on the differential Chart review reveals diagnosis of CHF in the past - present admission does not seem to be CHF exacerbation given negative CXR and BNP. However, EF is 62.2%, and it is uncertain who gave patient dx of CHF - in any case this woud be diastolic CHF. Patient does not complain of chest pain, and despite ASCVD score , she had recent stress and cath done. Plan COPD exacerbation - Duonebs q4h GRETEL and q2h PRN - Solumedrol 30 daily, 2L Oxygen via NC with target SpO2 90-92% - Azithro/Rocephin for CAP - Influenza stat ordered - Continue with home Brovana, Pulmicort, Fluticasone Generalized Fatigue likely 2/2 Hypothyroidism VS CAP VS Hypoxia VS Influenza - TSH, A1C - ABx as above - COPD tx as above Productive Cough likely 2/2 PNA VS Unknown Etiology - Continue with Guaifenesin/Codeine - Continue with Azithro/Rocephin Headache - Tylenol q6 PRN Hx CAD - ASA, Lipitor Hx Questionable CHF - Continue with Lasix 40 mg PO BID Hx GERD - Continue Esomeprazole Hx Anxiety - Xanax 0.25 BID Hx Constipation - Continue with colace TID GI/DVT prophylaxis - Continue with Esomeprazole - Lovenox 40 mg SC - HHD diet <Stalin Vasquez - Last Filed: 11/15/17 07:43> Results - Vital Signs Recent Vital Signs: Last Vital Signs Temp 97.8 F 11/14/17 16:27 Pulse 68 11/14/17 18:00 Resp 19 11/14/17 16:27 BP 98/60 L 11/14/17 16:27 Pulse Ox 97 11/14/17 16:27 - Labs Result Diagrams: 11/14/17 11:00 11/14/17 11:00 Labs: Laboratory Results - last 24 hr 11/14/17 11/14/17 13:29 14:00 pCO2 38 pO2 76.0 L HCO3 30.3 H ABG pH 7.51 H ABG Total CO2 31.5 H ABG O2 Saturation 98.6 H ABG Base Excess 6.9 H ABG Potassium 3.7 Sodium 138.0 Chloride 105.0 Glucose 129 H Lactate 0.7 FiO2 21.0 POC Glucose (mg/dL) 120 H Arterial Blood Potassium 3.7 Attending/Attestation - Attestation I have personally seen and examined this patient.: Yes I have fully participated in the care of the patient.: Yes I have reviewed all pertinent clinical information: Yes Notes (Text): 11/14/17 77 year old female with past medical history of COPD who presents with complaint of generalized weakness and shortness of breath. She is on iv steroids, duonebs and antibiotics for COPD exacerbation. Slight leukocytosis possibly from recent steroids. Lower extremity dopplers ordered to rule out DVT. PT evaluation is requested for complaint of generalized weakness. Stalin Vasquez MD Hospitalist.
[2017-11-14] MEDS: cefTRIAXone 1 gm 1 GM/100 ML BAG IVPB SCH (20:58)
[2017-11-14] MEDS: MethylPREDNISolone 40 mg Vial IVP SCH (20:59)
[2017-11-14] MEDS: Azithromycin 500MG/NS 250ml 500 MG/250 ML BAG IVPB SCH ×3 (21:00→21:34)
[2017-11-14] MEDS ORDERED: guaiFENesin-Codeine 100-10mg/5ml Syrup (5 ml) UD PO PRN (21:01)
--- NOTE | 2017-11-14 23:24 | CON ---
DATE: 11/14/2017 REASON FOR CONSULTATION: Cardiac evaluation, history of permanent pacemaker, admitted with acute exacerbation of COPD. BRIEF CLINICAL HISTORY: This is a 77-year-old female, obese, with past medical history significant for coronary artery disease, status post permanent pacemaker, hypothyroidism, obesity, diabetes, COPD, admitted with 1 week history of runny nose, shortness of breath and low-grade fever. Two days ago, the patient came in to emergency room with same complaint and was sent home; complaining of again this morning, the patient feels very weak, lethargic, cough; fever, low-grade; feels that she is going to , so came in to the emergency room. Denies any chest pain, denies any palpitations, denies any dyspnea on exertion. PAST MEDICAL HISTORY: Significant for COPD, hypertension, status post permanent pacemaker, history of CHF as well as diastolic dysfunction. PERSONAL HISTORY: The patient stopped smoking recently; claims that used to smoke a pack a day for many years. Denies any substance abuse. Denies any history of alcohol abuse. 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 ALLERGIES: ALLERGY TO LEVAQUIN, LIPITOR, "I CANNOT TOLERATE." CURRENT MEDICATIONS: The patient is taking at home, guaifenesin 5 mg daily, prednisone 50, potassium, metoprolol, levothyroxine, Lasix, Nexium, Colace, atorvastatin, aspirin, Brovana, Ventolin and Xanax. PREVIOUS CARDIAC WORKUP: As follows, the patient had echocardiography done on 06/09/2017 that showed normal LV size, ejection fraction 65%, mild to moderate aortic regurgitation, aortic sclerosis, mild to moderate mitral regurgitation, mild tricuspid regurgitation, RV systolic pressure 35, IVC is 50% collapsing. History of cardiac catheterization on 06/11/2017, normal coronaries, and at that time, patient had also right heart catheterization done that shows normal wedge pressure, LV end diastolic pressure of 25 to 30, mild to moderate aortic insufficiency, mild to moderate mitral regurgitation, mild tricuspid regurgitation. Cardiac catheterization dated 06/11/2017, complete catheterization that shows normal coronaries, preserved LV function, ejection fraction of 60% to 65%, LVEDP was 25 to 30. Right heart catheterization revealed RA 16, RV 44/15, PA 40/25, mean PA 32, pulmonary capillary wedge pressure 24, cardiac output 3.75 liter per minute, cardiac index 1.9, PVR 2.1 josé unit. At that time, recommendations was made of complete cessation of smoking, cardiac rehab and receive medical treatment. REVIEW OF SYSTEMS: As per HPI. PHYSICAL EXAMINATION: VITAL SIGNS: Temperature afebrile, heart rate 60, blood pressure 130/80. Height of the patient is 5 feet 4 inches, weight of the patient 194 pounds, body mass index 33.3 kg/m2. HEENT: PERRLA. Extraocular muscles are intact. NECK: Supple. No carotid bruit. No thyromegaly. CHEST: Clear to auscultation. HEART: S1 and S2 regular. ABDOMEN: Soft. EXTREMITIES: Clubbing and cyanosis negative. EKG shows normal sinus, electronic pacemaker but underlying normal sinus. LABORATORY DATA: Blood workup as follows, WBC 12.7, hemoglobin 13.9, hematocrit 41.1, platelet count 213. Chemistry shows sodium 130, potassium 4.2, chloride 94, carbon dioxide 33, anion gap of 16, BUN 25, creatinine 0.9. Troponin is 0.01. IMPRESSION: Acute exacerbation of chronic obstructive pulmonary disease, history of cardiac catheterization on 05/2017, normal coronaries, preserved left ventricular function, ejection fraction preserved, mildly elevated right heart catheterization, pulmonary vascular resistance 2.1 josé unit; chronic obstructive pulmonary disease, asthma, acute bronchitis, obesity and diabetes. RECOMMENDATIONS: Get lipid profile, TSH, hemoglobin A1c. For COPD, we will change to Xopenex because the patient complains of tremor, is shaking. Continue antibiotics for treatment of COPD. As mentioned, we will change to Xopenex from albuterol because of the patient is having shaking from albuterol. Also history of cellulitis of the lower extremity, we will get lower extremity duplex scan to rule out any DVT. We will follow with you. In the meantime, we will continue DVT prophylaxis. Thank you, Dr. Vasquez, for providing us the opportunity in taking care of the patient Cinthya Kimball. Jefferson Levine MD
[2017-11-15] MEDS: Budesonide 0.5 mg/2 ml Inhal Susp UD IH SCH ×3 (07:28→19:00)
[2017-11-15] MEDS: Arformoterol 15 mcg/2 ml Inh Sol IH SCH ×3 (07:28→19:00)
--- NOTE | 2017-11-15 07:36 | CP.PCM.PN ---
Subjective - Date & Time of Evaluation Date of Evaluation: 11/15/17 Time of Evaluation: 06:30 - Subjective Subjective: Sitting in bed, mild shortness of breath, on nasal cannula, awake Reason for consultation and follow up: Cardiac evaluation for shortness of breath, exacerbation of COPD,history of PPM, coronary artery disease, hypertension, diastolic congestive heart failure. Seen and examined by me and Dr. Levine Objective - Vital Signs/Intake and Output Vital Signs (last 24 hours): Temp Pulse Resp BP Pulse Ox 97.8 F 68 19 98/60 L 97 11/14/17 16:27 11/14/17 18:00 11/14/17 16:27 11/14/17 16:27 11/14/17 16:27 Intake and Output: 11/15/17 11/15/17 06:59 18:59 Intake Total 360 120 Balance 360 120 - Medications Medications: Current Medications Acetaminophen (Tylenol 325mg Tab) 650 mg PO Q6H PRN PRN Reason: Fever >100.4 F Alprazolam (Xanax) 0.25 mg PO BID PRN; Protocol PRN Reason: Anxiety Stop: 11/21/17 21:02 Arformoterol Tartrate (Brovana) 15 mcg IH [id number] [facility] Aspirin (Ecotrin) 81 mg PO DAILY [facility] Atorvastatin Calcium (Lipitor) 10 mg PO DIN [facility] Benzocaine/Menthol (Cepacol Sore Throat) 1 doc MT Q2H PRN PRN Reason: Sore Throat Last Admin: 11/14/17 20:51 Dose: 1 doc Budesonide (Pulmicort Respules) 1 mg IH [id number] [facility] Cholecalciferol (Vitamin D) 1,000 intlu PO DAILY [facility] Docusate Sodium (Colace) 100 mg PO TID [facility] Enoxaparin Sodium (Lovenox) 40 mg SC DAILY [facility] PRN Reason: Protocol Furosemide (Lasix) 40 mg PO BID [facility] Last Admin: 11/14/17 21:35 Dose: Not Given Guaifenesin/Codeine Phosphate (Robitussin W/Codeine) 5 ml PO Q4H PRN PRN Reason: Cough Last Admin: 11/14/17 21:36 Dose: 5 ml Azithromycin (Zithromax 500mg In Ns) 500 mg in 250 mls @ 167 mls/hr IVPB DAILY [facility] Last Admin: 11/14/17 21:34 Dose: 167 mls/hr Ceftriaxone Sodium (Rocephin 1 Gram Ivpb) 1 gm in 100 mls @ 100 mls/hr IVPB DAILY GRETEL PRN Reason: Protocol Last Admin: 11/14/17 20:58 Dose: 100 mls/hr Levalbuterol HCl (Xopenex) 0.63 mg IH [id number] PRN PRN Reason: Shortness of Breath Levothyroxine Sodium (Synthroid) 100 mcg PO DAILY GRETEL Methylprednisolone (Solu-Medrol) 30 mg IVP DAILY [facility] Last Admin: 11/14/17 20:59 Dose: 30 mg Metoprolol Tartrate (Lopressor) 50 mg PO QAM GRETEL Pantoprazole Sodium (Protonix Ec Tab) 40 mg PO ACB GRETEL - Constitutional Appears: No Acute Distress - Eye Exam Eye Exam: Normal appearance - ENT Exam ENT Exam: Mucous Membranes Moist - Respiratory Exam Respiratory Exam: Decreased Breath Sounds, Rhonchi, NORMAL BREATHING PATTERN - Cardiovascular Exam Cardiovascular Exam: REGULAR RHYTHM, +S1, +S2 Additional comments: NSR 70's - GI/Abdominal Exam GI & Abdominal Exam: Soft, Normal Bowel Sounds - Extremities Exam Extremities Exam: Normal Capillary Refill Additional comments: 2+ edema, cellulitis - Neurological Exam Neurological Exam: Alert, Awake, Oriented x3 - Psychiatric Exam Psychiatric exam: Normal Affect - Skin Skin Exam: Dry, Warm Assessment and Plan - Assessment and Plan (Free Text) Assessment: A 77 year old female obese who came in to the ER due to worsening shortness of breath. History of coronary artery disease, pacemaker, COPD, and hypothyroidism, diabetes, diastolic CHF former smoker. Feels very weak. Cardiac cath 05/2017- normal coronaries. preserved LV function. Exacerbation of COPD. Plan: Feels better On Xopenex PRN Heart rate and blood pressure stable US of extremities negative for DVT On ASA 81 mg daily,Lipitor 10 mg daily, lasix 40 mg BID Synthroid 100 mcg daily, Solumedrol 30 mg daily, [id number] mg daily On IV antibiotics Continue current treatment Continue current medications Will follow up Plan and treatment discussed with Dr. Levine
[2017-11-15 08:16] LABS: BASO % 0.1 % (0.0-3.0); GRAN # 9.05 (1.4-6.5); GRAN % 89.8 % (50.0-68.0); HEMOGLOBIN 13.1 g/dL (12.0-16.0); LYMPH # 0.8 (1.2-3.4); LYMPH % 8.1 % (22.0-35.0); MEAN CELL VOLUME 95.5 fl (80.0-105.0); MEAN CORPUSCULAR HEMOGLOBIN 31.3 pg (25.0-35.0); MEAN CORPUSCULAR HGB CONC 32.8 g/dl (31.0-37.0); MEAN PLATELET VOLUME 10.6 fl (7.0-11.0); MONO # 0.2 (0.1-0.6); RBC 4.18 10^6/uL (3.5-6.1); RED CELL DISTRIBUTION WIDTH 15.1 % (11.5-14.5); WHITE BLOOD COUNT 10.1 10^3/ul (4.5-11.0)
[2017-11-15 08:17] LABS: BASO # 0.01 K/mm3 (0.0-2.0)
[2017-11-15 08:30] LABS: ALB/GLOB RATIO 1.2 (1.1-1.8); ALBUMIN 3.9 g/dL (3.0-4.8); ALT/SGPT 36 U/L (7-56); AST/SGOT 23 U/L (14-36); BLOOD UREA NITROGEN 24 mg/dL (7-21); CALCIUM 9.4 mg/dL (8.4-10.5); GFR AFRICAN-AMERICAN > 60; GFR NON-AFRICAN AMERICAN 54
[2017-11-15] MEDS ORDERED: Magnesium Sulfate 1 gm in D5W 1 GM/100 ML BAG IVPB ONE (08:32)
[2017-11-15] MEDS ORDERED: Fluticasone-Salmeterol 500-50mcg Diskus INH SCH (10:00)
[2017-11-15] MEDS ORDERED: Vancomycin 1gm in NS 250ml 1 GM/250 ML BAG IVPB SCH (10:00)
[2017-11-15] MEDS: Enoxaparin 40 mg Syringe SC SCH (10:02)
[2017-11-15] MEDS: Pantoprazole 40 mg EC Tab PO SCH (10:07)
[2017-11-15] MEDS: cefTRIAXone 1 gm 1 GM/100 ML BAG IVPB SCH (10:07)
[2017-11-15] MEDS: MethylPREDNISolone 40 mg Vial IVP SCH ×2 (10:08→17:23)
[2017-11-15] MEDS: Cholecalciferol 1,000 INTLU TAB PO SCH (10:10)
[2017-11-15] MEDS: Levothyroxine 100 MCG TAB PO SCH (10:10)
[2017-11-15] MEDS: Azithromycin 500MG/NS 250ml 500 MG/250 ML BAG IVPB SCH (10:11)
[2017-11-15] MEDS ORDERED: guaiFENesin-Codeine 100-10mg/5ml Syrup (5 ml) UD PO PRN (10:22)
--- NOTE | 2017-11-15 13:49 | CP.PCM.PN ---
<Glen Hare - Last Filed: 11/15/17 13:23> Subjective - Date & Time of Evaluation Date of Evaluation: 11/15/17 Time of Evaluation: 07:00 - Subjective Subjective: Medicine progress note for Dr. Christina Hare PGY 2, IM Patient seen and examined at bedside. Patient had no acute overnight events. This morning still feeling fatigued and complaining of cough. Otherwise no acute complaints Objective - Vital Signs/Intake and Output Vital Signs (last 24 hours): Temp Pulse Resp BP Pulse Ox 97.7 F 71 18 123/60 95 11/15/17 06:00 11/15/17 10:02 11/15/17 06:00 11/15/17 10:02 11/15/17 06:00 Intake and Output: 11/15/17 11/15/17 06:59 18:59 Intake Total 360 120 Balance 360 120 - Medications Medications: Current Medications Acetaminophen (Tylenol 325mg Tab) 650 mg PO Q6H PRN PRN Reason: Fever >100.4 F Last Admin: 11/15/17 10:10 Dose: 650 mg Alprazolam (Xanax) 0.25 mg PO BID PRN; Protocol PRN Reason: Anxiety Stop: 11/21/17 21:02 Arformoterol Tartrate (Brovana) 15 mcg IH [id number] [facility] Last Admin: 11/15/17 07:28 Dose: 15 mcg Aspirin (Ecotrin) 81 mg PO DAILY [facility] Last Admin: 11/15/17 10:01 Dose: 81 mg Atorvastatin Calcium (Lipitor) 10 mg PO DIN [facility] Benzocaine/Menthol (Cepacol Sore Throat) 1 doc MT Q2H PRN PRN Reason: Sore Throat Last Admin: 11/14/17 20:51 Dose: 1 doc Budesonide (Pulmicort Respules) 1 mg IH [id number] [facility] Last Admin: 11/15/17 07:28 Dose: 1 mg Cholecalciferol (Vitamin D) 1,000 intlu PO DAILY [facility] Last Admin: 11/15/17 10:10 Dose: 1,000 intlu Docusate Sodium (Colace) 100 mg PO TID [facility] Last Admin: 11/15/17 10:01 Dose: 100 mg Enoxaparin Sodium (Lovenox) 40 mg SC DAILY [facility] PRN Reason: Protocol Last Admin: 11/15/17 10:02 Dose: 40 mg Furosemide (Lasix) 40 mg PO BID [facility] Last Admin: 11/15/17 10:01 Dose: 40 mg Guaifenesin/Codeine Phosphate (Robitussin W/Codeine) 5 ml PO Q6H PRN PRN Reason: Cough Azithromycin (Zithromax 500mg In Ns) 500 mg in 250 mls @ 167 mls/hr IVPB DAILY [facility] Last Admin: 11/15/17 10:11 Dose: 167 mls/hr Ceftriaxone Sodium (Rocephin 1 Gram Ivpb) 1 gm in 100 mls @ 100 mls/hr IVPB DAILY [facility] PRN Reason: Protocol Last Admin: 11/15/17 10:07 Dose: 100 mls/hr Levalbuterol HCl (Xopenex) 0.63 mg IH [id number] PRN PRN Reason: Shortness of Breath Levothyroxine Sodium (Synthroid) 100 mcg PO DAILY [facility] Last Admin: 11/15/17 10:10 Dose: 100 mcg Magnesium Oxide (Mag-Ox) 400 mg PO BID [facility] Stop: 11/16/17 23:59 Methylprednisolone (Solu-Medrol) 20 mg IVP DAILY [facility] Metoprolol Tartrate (Lopressor) 50 mg PO QAM [facility] Last Admin: 11/15/17 10:02 Dose: 50 mg Pantoprazole Sodium (Protonix Ec Tab) 40 mg PO ACB [facility] Last Admin: 11/15/17 10:07 Dose: 40 mg - Labs Labs: 11/15/17 07:00 11/15/17 07:00 - Constitutional Appears: Well - Head Exam Head Exam: ATRAUMATIC, NORMAL INSPECTION, NORMOCEPHALIC - Eye Exam Eye Exam: EOMI, Normal appearance, PERRL Pupil Exam: NORMAL ACCOMODATION, PERRL - ENT Exam ENT Exam: Mucous Membranes Moist, Normal Exam - Neck Exam Neck Exam: Full ROM, Normal Inspection. absent: Lymphadenopathy - Respiratory Exam Respiratory Exam: Decreased Breath Sounds, Wheezes, NORMAL BREATHING PATTERN - Cardiovascular Exam Cardiovascular Exam: REGULAR RHYTHM, +S1, +S2. absent: Murmur - GI/Abdominal Exam GI & Abdominal Exam: Soft, Normal Bowel Sounds. absent: Tenderness - Extremities Exam Extremities Exam: Full ROM, Normal Capillary Refill, Normal Inspection. absent : Joint Swelling, Pedal Edema - Back Exam Back Exam: NORMAL INSPECTION - Neurological Exam Neurological Exam: Alert, Awake, CN II-XII Intact, Normal Gait, Oriented x3 - Psychiatric Exam Psychiatric exam: Normal Affect, Normal Mood - Skin Skin Exam: Dry, Intact, Normal Color, Warm Assessment and Plan - Assessment and Plan (Free Text) Assessment: 77 year old female with pertinent medical history of CHF and COPD presents with shortness of breath. Patient was still short of breath even after 2 rounds of duonebs in ED; she was satting around 89-90% as well. This in conjunction with her LE erythema and calf tenderness was concerning for DVT/PE - but U/s LE was negative and patient' s sats improved after another round of duonebs. In addition, CXR was negative for any consolidation or fluid. Thus, at this time shortness of breath most likely 2/2 COPD exacerbation. In light of productive cough, however, PNA is still on the differential. Chart review reveals diagnosis of CHF in the past - present admission does not seem to be CHF exacerbation given negative CXR and BNP. Also, EF is 62.2%, and it is uncertain who gave patient dx of CHF - in any case this would be diastolic CHF. Patient does not complain of chest pain, and despite ASCVD score , she had recent stress and cath done. THus at this time, no further cardiac work up is warranted. RE: generalized weakness, patient's initial ABG did not show any respiratory acidosis, TSH is within normal limits, and there are no signs of sepsis. Patient did have a leukocytosis, but it is most likely 2/2 recent steroids after previous visit to ED. UA negative for infection. O2 sats have normalized ; influenza pending. Patient's weakness may be more likely 2/2 some mild depressed mood. Patient is not complaining of HI/SI. Plan COPD exacerbation - Duonebs q4h GRETEL and q2h PRN changed to Xopenex q6 PRN - Solumedrol 30 daily changed to Solumederol 20 daily; 2L Oxygen via NC with target SpO2 90-92% - Azithro/Rocephin - Influenza stat ordered - Continue with home Brovana, Pulmicort, Fluticasone Generalized Fatigue likely 2/2 Hypoxia VS Influenza VS Mood - ABx as above, COPD tx as above - No need for psych consult, patient is not psychotic, SI, or HI - Pending PT Eval Productive Cough likely 2/2 COPD vs Chronic - Continue with Guaifenesin/Codeine - but changed from q4PRN to q6PRN - Continue with Azithro/Rocephin Headache - Tylenol q6 PRN Hx CAD - ASA, Lipitor Hx Questionable CHF - Continue with Lasix 40 mg PO BID Hx GERD - Continue Esomeprazole Hx Anxiety - Xanax 0.25 BID Hx Constipation - Continue with colace TID GI/DVT prophylaxis - Continue with Esomeprazole - Lovenox 40 mg SC - HHD diet <Stalin Vasquez A - Last Filed: 11/15/17 14:45> Objective - Vital Signs/Intake and Output Vital Signs (last 24 hours): Temp Pulse Resp BP Pulse Ox 97.7 F 71 18 123/60 95 11/15/17 06:00 11/15/17 10:02 11/15/17 06:00 11/15/17 10:02 11/15/17 06:00 Intake and Output: 11/15/17 11/15/17 06:59 18:59 Intake Total 360 120 Balance 360 120 - Medications Medications: Current Medications Acetaminophen (Tylenol 325mg Tab) 650 mg PO Q6H PRN PRN Reason: Fever >100.4 F Last Admin: 11/15/17 10:10 Dose: 650 mg Alprazolam (Xanax) 0.25 mg PO BID PRN; Protocol PRN Reason: Anxiety Stop: 11/21/17 21:02 Arformoterol Tartrate (Brovana) 15 mcg IH [id number] [facility] Last Admin: 11/15/17 07:28 Dose: 15 mcg Aspirin (Ecotrin) 81 mg PO DAILY [facility] Last Admin: 11/15/17 10:01 Dose: 81 mg Atorvastatin Calcium (Lipitor) 10 mg PO DIN [facility] Benzocaine/Menthol (Cepacol Sore Throat) 1 doc MT Q2H PRN PRN Reason: Sore Throat Last Admin: 11/14/17 20:51 Dose: 1 doc Budesonide (Pulmicort Respules) 1 mg IH [id number] [facility] Last Admin: 11/15/17 07:28 Dose: 1 mg Cholecalciferol (Vitamin D) 1,000 intlu PO DAILY [facility] Last Admin: 11/15/17 10:10 Dose: 1,000 intlu Docusate Sodium (Colace) 100 mg PO TID [facility] Last Admin: 11/15/17 10:01 Dose: 100 mg Enoxaparin Sodium (Lovenox) 40 mg SC DAILY [facility] PRN Reason: Protocol Last Admin: 11/15/17 10:02 Dose: 40 mg Furosemide (Lasix) 40 mg PO BID [facility] Last Admin: 11/15/17 10:01 Dose: 40 mg Guaifenesin/Codeine Phosphate (Robitussin W/Codeine) 5 ml PO Q6H PRN PRN Reason: Cough Azithromycin (Zithromax 500mg In Ns) 500 mg in 250 mls @ 167 mls/hr IVPB DAILY [facility] Last Admin: 11/15/17 10:11 Dose: 167 mls/hr Ceftriaxone Sodium (Rocephin 1 Gram Ivpb) 1 gm in 100 mls @ 100 mls/hr IVPB DAILY [facility] PRN Reason: Protocol Last Admin: 11/15/17 10:07 Dose: 100 mls/hr Levalbuterol HCl (Xopenex) 0.63 mg IH [id number] PRN PRN Reason: Shortness of Breath Levothyroxine Sodium (Synthroid) 100 mcg PO DAILY [facility] Last Admin: 11/15/17 10:10 Dose: 100 mcg Magnesium Oxide (Mag-Ox) 400 mg PO BID [facility] Stop: 11/16/17 23:59 Methylprednisolone (Solu-Medrol) 20 mg IVP DAILY [facility] Metoprolol Tartrate (Lopressor) 50 mg PO QAM [facility] Last Admin: 11/15/17 10:02 Dose: 50 mg Pantoprazole Sodium (Protonix Ec Tab) 40 mg PO ACB [facility] Last Admin: 11/15/17 10:07 Dose: 40 mg - Labs Labs: 11/15/17 07:00 11/15/17 07:00 Attending/Attestation - Attestation I have personally seen and examined this patient.: Yes I have fully participated in the care of the patient.: Yes I have reviewed all pertinent clinical information, including history, physical exam and plan: Yes Notes (Text): 11/15/17 14:44 77 year old female with past medical history of COPD who presented with complaint of generalized weakness and shortness of breath. She is on iv steroids, xopenex and antibiotics for COPD exacerbation. Wheezing is improved today; will begin to taper solumedrol. Lower extremity dopplers was negative for. She does have mild erythema ? cellulitis of lower legs. Continue with antibiotics as above. PT evaluation was requested for complaint of generalized weakness. Stalin Vasquez MD Hospitalist.
[2017-11-15] MEDS: Magnesium Oxide 400 mg Tab UD PO SCH (17:22)
--- NOTE | 2017-11-16 07:15 | CP.PCM.PN ---
Subjective - Date & Time of Evaluation Date of Evaluation: 11/16/17 Time of Evaluation: 06:40 - Subjective Subjective: no distress,easily awaken,denies shortness of breath Reason for consultation and follow up: Cardiac evaluation for shortness of breath, exacerbation of COPD,history of PPM, coronary artery disease, hypertension, diastolic congestive heart failure. Seen and examined by me and Dr. Levine Objective - Vital Signs/Intake and Output Vital Signs (last 24 hours): Temp Pulse Resp BP Pulse Ox 98 F 89 18 103/57 L 95 11/16/17 06:20 11/16/17 06:20 11/16/17 06:20 11/16/17 06:20 11/16/17 06:20 Intake and Output: 11/16/17 11/16/17 06:59 18:59 Intake Total 880 Balance 880 - Medications Medications: Current Medications Acetaminophen (Tylenol 325mg Tab) 650 mg PO Q6H PRN PRN Reason: Fever >100.4 F Last Admin: 11/15/17 10:10 Dose: 650 mg Alprazolam (Xanax) 0.25 mg PO BID PRN; Protocol PRN Reason: Anxiety Stop: 11/21/17 21:02 Last Admin: 11/15/17 22:07 Dose: 0.25 mg Arformoterol Tartrate (Brovana) 15 mcg IH [id number] [facility] Last Admin: 11/15/17 19:00 Dose: Not Given Aspirin (Ecotrin) 81 mg PO DAILY [facility] Last Admin: 11/15/17 10:01 Dose: 81 mg Atorvastatin Calcium (Lipitor) 10 mg PO DIN [facility] Last Admin: 11/15/17 17:22 Dose: 10 mg Benzocaine/Menthol (Cepacol Sore Throat) 1 doc MT Q2H PRN PRN Reason: Sore Throat Last Admin: 11/14/17 20:51 Dose: 1 doc Budesonide (Pulmicort Respules) 1 mg IH [id number] [facility] Last Admin: 11/15/17 19:00 Dose: Not Given Cholecalciferol (Vitamin D) 1,000 intlu PO DAILY [facility] Last Admin: 11/15/17 10:10 Dose: 1,000 intlu Docusate Sodium (Colace) 100 mg PO TID [facility] Last Admin: 11/15/17 17:21 Dose: 100 mg Enoxaparin Sodium (Lovenox) 40 mg SC DAILY [facility] PRN Reason: Protocol Last Admin: 11/15/17 10:02 Dose: 40 mg Furosemide (Lasix) 40 mg PO BID [facility] Last Admin: 11/15/17 17:21 Dose: 40 mg Guaifenesin/Codeine Phosphate (Robitussin W/Codeine) 5 ml PO Q6H PRN PRN Reason: Cough Last Admin: 11/15/17 22:07 Dose: 5 ml Azithromycin (Zithromax 500mg In Ns) 500 mg in 250 mls @ 167 mls/hr IVPB DAILY [facility] Last Admin: 11/15/17 10:11 Dose: 167 mls/hr Ceftriaxone Sodium (Rocephin 1 Gram Ivpb) 1 gm in 100 mls @ 100 mls/hr IVPB DAILY [facility] PRN Reason: Protocol Last Admin: 11/15/17 10:07 Dose: 100 mls/hr Levalbuterol HCl (Xopenex) 0.63 mg IH [id number] PRN PRN Reason: Shortness of Breath Levothyroxine Sodium (Synthroid) 100 mcg PO DAILY [facility] Last Admin: 11/15/17 10:10 Dose: 100 mcg Magnesium Oxide (Mag-Ox) 400 mg PO BID [facility] Stop: 11/16/17 23:59 Last Admin: 11/15/17 17:22 Dose: 400 mg Methylprednisolone (Solu-Medrol) 20 mg IVP DAILY [facility] Last Admin: 11/15/17 17:23 Dose: Not Given Metoprolol Tartrate (Lopressor) 50 mg PO QAM [facility] Last Admin: 11/15/17 10:02 Dose: 50 mg Pantoprazole Sodium (Protonix Ec Tab) 40 mg PO ACB [facility] Last Admin: 11/15/17 10:07 Dose: 40 mg - Labs Labs: 11/15/17 07:00 11/15/17 07:00 - Constitutional Appears: No Acute Distress - Head Exam Head Exam: NORMOCEPHALIC - Eye Exam Eye Exam: Normal appearance - ENT Exam ENT Exam: Mucous Membranes Moist - Respiratory Exam Respiratory Exam: Decreased Breath Sounds, NORMAL BREATHING PATTERN - Cardiovascular Exam Cardiovascular Exam: +S1, +S2 Additional comments: NSR telemetry 70's - GI/Abdominal Exam GI & Abdominal Exam: Soft, Normal Bowel Sounds - Extremities Exam Additional comments: 2+edema - Neurological Exam Neurological Exam: Alert, Awake, Oriented x3 - Psychiatric Exam Psychiatric exam: Normal Affect - Skin Skin Exam: Dry, Warm Assessment and Plan - Assessment and Plan (Free Text) Assessment: A 77 year old female obese who came in to the ER due to worsening shortness of breath. History of coronary artery disease, pacemaker, COPD, and hypothyroidism, diabetes, diastolic CHF former smoker. Feels very weak. Cardiac cath 05/2017- normal coronaries. preserved LV function. Exacerbation of COPD.some coughing. Plan: Feels okay, has some cough On Xopenex PRN, Guanefesin/codeine PRN Heart rate and blood pressure stable On ASA 81 mg daily,Lipitor 10 mg daily, Lasix 40 mg BID Synthroid 100 mcg daily, Solumedrol 30 mg daily, [id number] mg daily On IV antibiotics Continue current treatment Continue current medications Will follow up Plan and treatment discussed with Dr. Levine
[2017-11-16] MEDS: Budesonide 0.5 mg/2 ml Inhal Susp UD IH SCH ×2 (07:37→19:41)
[2017-11-16] MEDS: Arformoterol 15 mcg/2 ml Inh Sol IH SCH ×2 (07:37→19:41)
[2017-11-16 07:47] LABS: ALB/GLOB RATIO 1.1 (1.1-1.8); ALBUMIN 3.4 g/dL (3.0-4.8); ALT/SGPT 33 U/L (7-56); AST/SGOT 20 U/L (14-36); BLOOD UREA NITROGEN 28 mg/dL (7-21); CALCIUM 9.2 mg/dL (8.4-10.5); GFR AFRICAN-AMERICAN > 60; GFR NON-AFRICAN AMERICAN > 60
[2017-11-16 07:52] LABS: BASO # 0.01 K/mm3 (0.0-2.0); BASO % 0.1 % (0.0-3.0); EOS % 0.1 % (1.5-5.0); GRAN # 8.46 (1.4-6.5); GRAN % 76.5 % (50.0-68.0); HEMOGLOBIN 12.2 g/dL (12.0-16.0); LYMPH # 1.6 (1.2-3.4); LYMPH % 14.7 % (22.0-35.0); MEAN CELL VOLUME 92.9 fl (80.0-105.0); MEAN CORPUSCULAR HEMOGLOBIN 30.8 pg (25.0-35.0); MEAN CORPUSCULAR HGB CONC 33.2 g/dl (31.0-37.0); MEAN PLATELET VOLUME 10.1 fl (7.0-11.0); MONO % 8.6 % (1.0-6.0); RBC 3.96 10^6/uL (3.5-6.1); RED CELL DISTRIBUTION WIDTH 14.5 % (11.5-14.5); WHITE BLOOD COUNT 11.1 10^3/ul (4.5-11.0)
[2017-11-16] MEDS: Pantoprazole 40 mg EC Tab PO SCH (08:05)
[2017-11-16] MEDS: Magnesium Oxide 400 mg Tab UD PO SCH ×2 (10:16→18:47)
[2017-11-16] MEDS: MethylPREDNISolone 40 mg Vial IVP SCH (10:16)
[2017-11-16] MEDS: Levothyroxine 100 MCG TAB PO SCH (10:17)
[2017-11-16] MEDS: Enoxaparin 40 mg Syringe SC SCH (10:25)
[2017-11-16] MEDS: cefTRIAXone 1 gm 1 GM/100 ML BAG IVPB SCH (10:26)
[2017-11-16] MEDS: Azithromycin 500MG/NS 250ml 500 MG/250 ML BAG IVPB SCH (10:26)
[2017-11-16] MEDS: Cholecalciferol 1,000 INTLU TAB PO SCH (10:27)
[2017-11-16] MEDS ORDERED: guaiFENesin 100 mg/5 ml Syrup UD PO PRN (11:20)
[2017-11-16] MEDS: Insulin Reg-LOW-Coverage SC SCH (12:10)
--- NOTE | 2017-11-16 15:00 | CP.PCM.PN ---
<Paco Mancuso - Last Filed: 11/16/17 15:32> Subjective - Date & Time of Evaluation Date of Evaluation: 11/16/17 Time of Evaluation: 08:20 - Subjective Subjective: Paco Mancuso DO PGY-1, [employer] Medicine Progress Note Pt seen and examined at bedside. States her breathing has improved, pt states she did not get out of bed yesterday. C/o feeling that "the bed is moving sideways" this am. Otherwise no acute events reported overnight. C/o productive cough, but states that her chest tightness is improving. Objective - Vital Signs/Intake and Output Vital Signs (last 24 hours): Temp Pulse Resp BP Pulse Ox 98.0 F 84 18 106/61 95 11/16/17 07:00 11/16/17 07:00 11/16/17 07:00 11/16/17 10:24 11/16/17 07:00 Intake and Output: 11/16/17 11/16/17 06:59 18:59 Intake Total 880 Balance 880 - Medications Medications: Current Medications Acetaminophen (Tylenol 325mg Tab) 650 mg PO Q6H PRN PRN Reason: Fever >100.4 F Last Admin: 11/15/17 10:10 Dose: 650 mg Alprazolam (Xanax) 0.25 mg PO BID PRN; Protocol PRN Reason: Anxiety Stop: 11/21/17 21:02 Last Admin: 11/15/17 22:07 Dose: 0.25 mg Arformoterol Tartrate (Brovana) 15 mcg IH [id number] [facility] Last Admin: 11/16/17 07:37 Dose: 15 mcg Aspirin (Ecotrin) 81 mg PO DAILY [facility] Last Admin: 11/16/17 10:16 Dose: 81 mg Atorvastatin Calcium (Lipitor) 10 mg PO DIN [facility] Last Admin: 11/15/17 17:22 Dose: 10 mg Benzocaine/Menthol (Cepacol Sore Throat) 1 doc MT Q2H PRN PRN Reason: Sore Throat Last Admin: 11/14/17 20:51 Dose: 1 doc Budesonide (Pulmicort Respules) 1 mg IH [id number] [facility] Last Admin: 11/16/17 07:37 Dose: 1 mg Cholecalciferol (Vitamin D) 1,000 intlu PO DAILY [facility] Last Admin: 11/16/17 10:27 Dose: 1,000 intlu Docusate Sodium (Colace) 100 mg PO TID [facility] Last Admin: 11/16/17 10:16 Dose: 100 mg Enoxaparin Sodium (Lovenox) 40 mg SC DAILY [facility] PRN Reason: Protocol Last Admin: 11/16/17 10:25 Dose: 40 mg Furosemide (Lasix) 40 mg PO BID [facility] Last Admin: 11/16/17 10:24 Dose: Not Given Guaifenesin (Robitussin) 100 mg PO Q6H PRN PRN Reason: Cough Azithromycin (Zithromax 500mg In Ns) 500 mg in 250 mls @ 167 mls/hr IVPB DAILY [facility] Last Admin: 11/16/17 10:26 Dose: 167 mls/hr Ceftriaxone Sodium (Rocephin 1 Gram Ivpb) 1 gm in 100 mls @ 100 mls/hr IVPB DAILY [facility] PRN Reason: Protocol Last Admin: 11/16/17 10:26 Dose: 100 mls/hr Insulin Human Regular (Humulin R Low) 0 units SC ACHS [facility] PRN Reason: Protocol Levalbuterol HCl (Xopenex) 0.63 mg IH [id number] PRN PRN Reason: Shortness of Breath Levothyroxine Sodium (Synthroid) 100 mcg PO DAILY [facility] Last Admin: 11/16/17 10:17 Dose: 100 mcg Magnesium Oxide (Mag-Ox) 400 mg PO BID [facility] Stop: 11/16/17 23:59 Last Admin: 11/16/17 10:16 Dose: 400 mg Methylprednisolone (Solu-Medrol) 20 mg IVP DAILY [facility] Last Admin: 11/16/17 10:16 Dose: 20 mg Metoprolol Tartrate (Lopressor) 50 mg PO QAM [facility] Last Admin: 11/16/17 10:25 Dose: Not Given Pantoprazole Sodium (Protonix Ec Tab) 40 mg PO ACB [facility] Last Admin: 11/16/17 08:05 Dose: Not Given - Labs Labs: 11/16/17 07:00 11/16/17 07:00 - Constitutional Appears: Non-toxic, No Acute Distress - Head Exam Head Exam: ATRAUMATIC, NORMAL INSPECTION, NORMOCEPHALIC - Eye Exam Eye Exam: EOMI, Normal appearance, PERRL - ENT Exam ENT Exam: Mucous Membranes Moist, Normal Oropharynx - Neck Exam Neck Exam: Full ROM, Normal Inspection - Respiratory Exam Respiratory Exam: Wheezes, NORMAL BREATHING PATTERN - Cardiovascular Exam Cardiovascular Exam: REGULAR RHYTHM, +S1, +S2 - GI/Abdominal Exam GI & Abdominal Exam: Soft, Normal Bowel Sounds - Extremities Exam Extremities Exam: Full ROM, Normal Capillary Refill, Normal Inspection - Neurological Exam Neurological Exam: Alert, Awake, CN II-XII Intact, Oriented x3 - Psychiatric Exam Psychiatric exam: Normal Affect, Normal Mood - Skin Skin Exam: Dry, Intact, Normal Color, Warm Assessment and Plan - Assessment and Plan (Free Text) Assessment: 77 year old female with pertinent medical history of CHF and COPD presents with shortness of breath. Patient was still short of breath even after 2 rounds of duonebs in ED; she was satting around 89-90% as well. This in conjunction with her LE erythema and calf tenderness was concerning for DVT/PE - but U/s LE was negative and patient's sats improved after another round of duonebs. In addition, CXR was negative for any consolidation or fluid. Thus, shortness of breath most likely 2/2 COPD exacerbation. Chart review reveals diagnosis of CHF in the past - present admission does not seem to be CHF exacerbation given negative CXR and BNP. EF 62.2%, uncertain who gave patient dx of CHF - likely diastolic CHF. Patient did not complain of chest pain, and despite ASCVD score , she had recent stress and cath done. No further cardiac work-up was warranted. For pt's generalized weakness, patient's initial ABG did not show any respiratory acidosis, TSH was within normal limits, no signs of sepsis. Patient did have leukocytosis, but most likely 2/2 recent steroids after previous visit to ED. UA negative for infection. O2 sats have normalized; influenza negative. Patient's weakness may be more likely 2/2 some mild depressed mood. Patient not complaining of SI/HI at this time. Plan: COPD exacerbation - Xopenex q6 PRN - Solu-medrol 20 daily; 2L Oxygen via NC with target SpO2 90-92% - Azithro/Rocephin - Influenza negative - C/w Brovana, Pulmicort, Fluticasone - Pt clinically improving, encourage ambulation and walking with PT Generalized Fatigue likely 2/2 Hypoxia VS Influenza VS Mood - ABx as above, COPD tx as above - No need for psych consult, patient is not psychotic, SI, or HI - F/u PT recs Productive Cough likely 2/2 COPD vs Chronic - C/w Guaifenesin q 6h PRN - C/w with Azithro/Rocephin Hx CAD - C/w ASA, Lipitor Hx Questionable CHF - C/w Lasix 40 mg PO BID Hx GERD - C/w Esomeprazole Hx Anxiety - Xanax 0.25 BID Hx Constipation - C/w colace TID GI/DVT prophylaxis - Esomeprazole - Lovenox 40 mg SC - HHD diet Pt seen, examined with, and plan discussed with Dr. Vasquez, attending. Paco Mancuso DO PGY-1, [employer] Pager #[phone] <Stalin Vasquez - Last Filed: 11/17/17 07:24> Objective - Vital Signs/Intake and Output Vital Signs (last 24 hours): Temp Pulse Resp BP Pulse Ox 98.2 F 67 20 122/64 95 11/16/17 17:31 11/17/17 01:27 11/16/17 17:31 11/16/17 18:46 11/16/17 17:31 Intake and Output: 11/17/17 11/17/17 06:59 18:59 Intake Total 420 Balance 420 - Medications Medications: Current Medications Acetaminophen (Tylenol 325mg Tab) 650 mg PO Q6H PRN PRN Reason: Fever >100.4 F Last Admin: 11/15/17 10:10 Dose: 650 mg Alprazolam (Xanax) 0.25 mg PO BID PRN; Protocol PRN Reason: Anxiety Stop: 11/21/17 21:02 Last Admin: 11/16/17 21:45 Dose: 0.25 mg Arformoterol Tartrate (Brovana) 15 mcg IH [id number] [facility] Last Admin: 11/17/17 07:04 Dose: 15 mcg Aspirin (Ecotrin) 81 mg PO DAILY [facility] Last Admin: 11/16/17 10:16 Dose: 81 mg Atorvastatin Calcium (Lipitor) 10 mg PO DIN [facility] Last Admin: 11/16/17 18:46 Dose: 10 mg Benzocaine/Menthol (Cepacol Sore Throat) 1 doc MT Q2H PRN PRN Reason: Sore Throat Last Admin: 11/14/17 20:51 Dose: 1 doc Budesonide (Pulmicort Respules) 1 mg IH [id number] [facility] Last Admin: 11/17/17 07:04 Dose: 1 mg Cholecalciferol (Vitamin D) 1,000 intlu PO DAILY [facility] Last Admin: 11/16/17 10:27 Dose: 1,000 intlu Docusate Sodium (Colace) 100 mg PO TID [facility] Last Admin: 11/16/17 18:47 Dose: 100 mg Enoxaparin Sodium (Lovenox) 40 mg SC DAILY [facility] PRN Reason: Protocol Last Admin: 11/16/17 10:25 Dose: 40 mg Furosemide (Lasix) 40 mg PO BID [facility] Last Admin: 11/16/17 18:46 Dose: 40 mg Guaifenesin (Robitussin) 100 mg PO Q6H PRN PRN Reason: Cough Azithromycin (Zithromax 500mg In Ns) 500 mg in 250 mls @ 167 mls/hr IVPB DAILY [facility] Last Admin: 11/16/17 10:26 Dose: 167 mls/hr Ceftriaxone Sodium (Rocephin 1 Gram Ivpb) 1 gm in 100 mls @ 100 mls/hr IVPB DAILY [facility] PRN Reason: Protocol Last Admin: 11/16/17 10:26 Dose: 100 mls/hr Insulin Human Regular (Humulin R Low) 0 units SC ACHS [facility] PRN Reason: Protocol Last Admin: 11/16/17 12:10 Dose: Not Given Levalbuterol HCl (Xopenex) 0.63 mg IH [id number] PRN PRN Reason: Shortness of Breath Levothyroxine Sodium (Synthroid) 100 mcg PO DAILY [facility] Last Admin: 11/16/17 10:17 Dose: 100 mcg Methylprednisolone (Solu-Medrol) 20 mg IVP DAILY [facility] Last Admin: 11/16/17 10:16 Dose: 20 mg Metoprolol Tartrate (Lopressor) 50 mg PO QAM [facility] Last Admin: 11/16/17 10:25 Dose: Not Given Pantoprazole Sodium (Protonix Ec Tab) 40 mg PO ACB [facility] Last Admin: 11/16/17 08:05 Dose: Not Given - Labs Labs: 11/16/17 07:00 11/17/17 06:00 Attending/Attestation - Attestation I have personally seen and examined this patient.: Yes I have fully participated in the care of the patient.: Yes I have reviewed all pertinent clinical information, including history, physical exam and plan: Yes Notes (Text): 11/16/17 77 year old female with past medical history of COPD who presented with complaint of generalized weakness and shortness of breath. She is on iv steroids, xopenex and antibiotics for COPD exacerbation. Symptoms are slowly improving. Lower extremity dopplers was negative for DVT. She does have mild erythema ? cellulitis of lower legs which is also improving. PT evaluation was requested for complaint of generalized weakness. Stalin Vasquez MD Hospitalist.
--- NOTE | 2017-11-16 15:39 | RAD ---
HISTORY: COMPARISON: 11/14/2017. TECHNIQUE: Chest PA and lateral FINDINGS: LINES AND TUBES: None. LUNG AND PLEURA: The lungs are well inflated and clear. No pleural effusion or pneumothorax. HEART AND MEDIASTINUM: The heart is not enlarged. There is stable position of left-sided pacemaker Atherosclerotic aortic arch calcifications are present. The hilar and mediastinal contours are within normal limits. SKELETAL STRUCTURES: The bony structures are within normal limits for the patient's age. VISUALIZED UPPER ABDOMEN: Normal. OTHER FINDINGS: None. IMPRESSION: No active pulmonary disease.
[2017-11-16 17:32] VITALS: RESP 20
[2017-11-17 06:40] LABS: BASO # 0.02 K/mm3 (0.0-2.0); BASO % 0.2 % (0.0-3.0); EOS % 0.1 % (1.5-5.0); GRAN # 5.66 (1.4-6.5); HEMOGLOBIN 12.7 g/dL (12.0-16.0); LYMPH # 2.5 (1.2-3.4); LYMPH % 27.4 % (22.0-35.0); MEAN CORPUSCULAR HEMOGLOBIN 30.3 pg (25.0-35.0); MEAN CORPUSCULAR HGB CONC 32.2 g/dl (31.0-37.0); MEAN PLATELET VOLUME 9.9 fl (7.0-11.0); MONO # 0.8 (0.1-0.6); MONO % 9.3 % (1.0-6.0); RBC 4.19 10^6/uL (3.5-6.1); RED CELL DISTRIBUTION WIDTH 14.9 % (11.5-14.5)
--- NOTE | 2017-11-17 06:56 | CP.PCM.PN ---
Subjective - Date & Time of Evaluation Date of Evaluation: 11/17/17 Time of Evaluation: 06:20 - Subjective Subjective: easily awaken, denies shortness of breath,no distress Reason for consultation and follow up: Cardiac evaluation for shortness of breath, exacerbation of COPD,history of PPM, coronary artery disease, hypertension, diastolic congestive heart failure. Seen and examined by me and Dr. Levine Objective - Vital Signs/Intake and Output Vital Signs (last 24 hours): Temp Pulse Resp BP Pulse Ox 98.2 F 67 20 122/64 95 11/16/17 17:31 11/17/17 01:27 11/16/17 17:31 11/16/17 18:46 11/16/17 17:31 Intake and Output: 11/16/17 11/17/17 18:59 06:59 Intake Total 420 Balance 420 - Medications Medications: Current Medications Acetaminophen (Tylenol 325mg Tab) 650 mg PO Q6H PRN PRN Reason: Fever >100.4 F Last Admin: 11/15/17 10:10 Dose: 650 mg Alprazolam (Xanax) 0.25 mg PO BID PRN; Protocol PRN Reason: Anxiety Stop: 11/21/17 21:02 Last Admin: 11/16/17 21:45 Dose: 0.25 mg Arformoterol Tartrate (Brovana) 15 mcg IH [id number] [facility] Last Admin: 11/16/17 19:41 Dose: 15 mcg Aspirin (Ecotrin) 81 mg PO DAILY [facility] Last Admin: 11/16/17 10:16 Dose: 81 mg Atorvastatin Calcium (Lipitor) 10 mg PO DIN [facility] Last Admin: 11/16/17 18:46 Dose: 10 mg Benzocaine/Menthol (Cepacol Sore Throat) 1 doc MT Q2H PRN PRN Reason: Sore Throat Last Admin: 11/14/17 20:51 Dose: 1 doc Budesonide (Pulmicort Respules) 1 mg IH [id number] [facility] Last Admin: 11/16/17 19:41 Dose: 1 mg Cholecalciferol (Vitamin D) 1,000 intlu PO DAILY [facility] Last Admin: 11/16/17 10:27 Dose: 1,000 intlu Docusate Sodium (Colace) 100 mg PO TID [facility] Last Admin: 11/16/17 18:47 Dose: 100 mg Enoxaparin Sodium (Lovenox) 40 mg SC DAILY [facility] PRN Reason: Protocol Last Admin: 11/16/17 10:25 Dose: 40 mg Furosemide (Lasix) 40 mg PO BID [facility] Last Admin: 11/16/17 18:46 Dose: 40 mg Guaifenesin (Robitussin) 100 mg PO Q6H PRN PRN Reason: Cough Azithromycin (Zithromax 500mg In Ns) 500 mg in 250 mls @ 167 mls/hr IVPB DAILY [facility] Last Admin: 11/16/17 10:26 Dose: 167 mls/hr Ceftriaxone Sodium (Rocephin 1 Gram Ivpb) 1 gm in 100 mls @ 100 mls/hr IVPB DAILY [facility] PRN Reason: Protocol Last Admin: 11/16/17 10:26 Dose: 100 mls/hr Insulin Human Regular (Humulin R Low) 0 units SC ACHS [facility] PRN Reason: Protocol Last Admin: 11/16/17 12:10 Dose: Not Given Levalbuterol HCl (Xopenex) 0.63 mg IH [id number] PRN PRN Reason: Shortness of Breath Levothyroxine Sodium (Synthroid) 100 mcg PO DAILY [facility] Last Admin: 11/16/17 10:17 Dose: 100 mcg Methylprednisolone (Solu-Medrol) 20 mg IVP DAILY [facility] Last Admin: 11/16/17 10:16 Dose: 20 mg Metoprolol Tartrate (Lopressor) 50 mg PO QAM [facility] Last Admin: 11/16/17 10:25 Dose: Not Given Pantoprazole Sodium (Protonix Ec Tab) 40 mg PO ACB [facility] Last Admin: 11/16/17 08:05 Dose: Not Given - Labs Labs: 11/16/17 07:00 11/16/17 07:00 - Constitutional Appears: No Acute Distress - Eye Exam Eye Exam: Normal appearance - ENT Exam ENT Exam: Mucous Membranes Moist - Respiratory Exam Respiratory Exam: Decreased Breath Sounds, Rhonchi, NORMAL BREATHING PATTERN - Cardiovascular Exam Cardiovascular Exam: REGULAR RHYTHM, +S1, +S2 Additional comments: NSR telemetry PPM - GI/Abdominal Exam GI & Abdominal Exam: Soft, Normal Bowel Sounds - Extremities Exam Additional comments: 1-2+edema - Neurological Exam Neurological Exam: Alert, Awake, Oriented x3 - Psychiatric Exam Psychiatric exam: Normal Affect - Skin Skin Exam: Dry, Warm Assessment and Plan - Assessment and Plan (Free Text) Assessment: A 77 year old female obese who came in to the ER due to worsening shortness of breath. History of coronary artery disease, pacemaker, COPD, and hypothyroidism, diabetes, diastolic CHF former smoker. Feels very weak. Cardiac cath 05/2017- normal coronaries. preserved LV function. Exacerbation of COPD.some coughing. Plan: no distress, feels much better,breathing easier Nebulizer Xopenex treatment PRN Heart rate and blood pressure stable On ASA 81 mg daily,Lipitor 10 mg daily, Lasix 40 mg BID Synthroid 100 mcg daily, Solumedrol 30 mg daily, [id number] mg daily On IV antibiotics, Zithromax and Rocephin Continue current treatment Continue current medications Will follow up Plan and treatment discussed with Dr. Levine
[2017-11-17] MEDS: Budesonide 0.5 mg/2 ml Inhal Susp UD IH SCH (07:04)
[2017-11-17] MEDS: Arformoterol 15 mcg/2 ml Inh Sol IH SCH (07:04)
[2017-11-17 07:18] LABS: ALB/GLOB RATIO 1.2 (1.1-1.8); ALBUMIN 3.6 g/dL (3.0-4.8); ALT/SGPT 40 U/L (7-56); AST/SGOT 24 U/L (14-36); BLOOD UREA NITROGEN 27 mg/dL (7-21); CALCIUM 9.1 mg/dL (8.4-10.5); GFR AFRICAN-AMERICAN > 60; GFR NON-AFRICAN AMERICAN > 60
[2017-11-17] MEDS: Insulin Reg-LOW-Coverage SC SCH ×2 (07:58→11:26)
[2017-11-17 08:19] VITALS: BP 153/79; TEMP 97.1; O2SAT 99
[2017-11-17] MEDS: Pantoprazole 40 mg EC Tab PO SCH (09:29)
[2017-11-17] MEDS: Enoxaparin 40 mg Syringe SC SCH (09:29)
[2017-11-17] MEDS: cefTRIAXone 1 gm 1 GM/100 ML BAG IVPB SCH (09:30)
[2017-11-17] MEDS: Cholecalciferol 1,000 INTLU TAB PO SCH (09:31)
[2017-11-17] MEDS: Levothyroxine 100 MCG TAB PO SCH (09:31)
[2017-11-17] MEDS: Azithromycin 500MG/NS 250ml 500 MG/250 ML BAG IVPB SCH (09:32)
[2017-11-17] MEDS ORDERED: MethylPREDNISolone 40 mg Vial IVP SCH (10:00)
[2017-11-17 11:01] VITALS: PULSE 77
--- NOTE | 2017-11-17 13:34 | CP.PCM.DIS ---
<Paco Mancuso - Last Filed: 11/17/17 13:28> Provider - Provider Date of Admission: 11/14/17 13:10 Attending physician: Stalin Vasquez MD Primary care physician: Jefferson Solomon MD Consults: Cardiology - Dr. Levine Time Spent in preparation of Discharge (in minutes): 45 Hospital Course - Lab Results Lab Results: Most Recent Lab Values WBC 9.0 10^3/ul (4.5-11.0) 11/17/17 06:00 RBC 4.19 10^6/uL (3.5-6.1) 11/17/17 06:00 Hgb 12.7 g/dL (12.0-16.0) 11/17/17 06:00 Hct 39.4 % (36.0-48.0) 11/17/17 06:00 MCV 94.0 fl (80.0-105.0) 11/17/17 06:00 MCH 30.3 pg (25.0-35.0) 11/17/17 06:00 MCHC 32.2 g/dl (31.0-37.0) 11/17/17 06:00 RDW 14.9 % (11.5-14.5) H 11/17/17 06:00 Plt Count 232 10^3/uL (120.0-450.0) 11/17/17 06:00 MPV 9.9 fl (7.0-11.0) 11/17/17 06:00 Gran % 63.0 % (50.0-68.0) 11/17/17 06:00 Lymph % (Auto) 27.4 % (22.0-35.0) 11/17/17 06:00 [place] % (Auto) 9.3 % (1.0-6.0) H 11/17/17 06:00 Eos % (Auto) 0.1 % (1.5-5.0) L 11/17/17 06:00 Baso % (Auto) 0.2 % (0.0-3.0) 11/17/17 06:00 Gran # 5.66 (1.4-6.5) 11/17/17 06:00 Lymph # (Auto) 2.5 (1.2-3.4) 11/17/17 06:00 [place] # (Auto) 0.8 (0.1-0.6) H 11/17/17 06:00 Eos # (Auto) 0.0 (0.0-0.7) 11/17/17 06:00 Baso # (Auto) 0.02 K/mm3 (0.0-2.0) 11/17/17 06:00 pCO2 38 mm/Hg (35-45) 11/14/17 14:00 pO2 76.0 mm/Hg (80-100) L 11/14/17 14:00 HCO3 30.3 mmol/L (21-28) H 11/14/17 14:00 ABG pH 7.51 (7.35-7.45) H 11/14/17 14:00 ABG Total CO2 31.5 mmol.L (22-28) H 11/14/17 14:00 ABG O2 Saturation 98.6 % (95-98) H 11/14/17 14:00 ABG Base Excess 6.9 mmol/L (-2.0-3.0) H 11/14/17 14:00 ABG Potassium 3.7 mmol/L (3.6-5.2) 11/14/17 14:00 Sodium 138.0 mmol/L (132-148) 11/14/17 14:00 Chloride 105.0 mmol/L (98-107) 11/14/17 14:00 Glucose 129 mg/dl (65-105) H 11/14/17 14:00 Lactate 0.7 mmol/L (0.7-2.1) 11/14/17 14:00 FiO2 21.0 % 11/14/17 14:00 Sodium 142 mmol/L (132-148) 11/17/17 06:00 Potassium 4.0 mmol/L (3.6-5.0) 11/17/17 06:00 Chloride 101 mmol/L (98-107) 11/17/17 06:00 Carbon Dioxide 32 mmol/L (21-33) 11/17/17 06:00 Anion Gap 13 (10-20) 11/17/17 06:00 BUN 27 mg/dL (7-21) H 11/17/17 06:00 Creatinine 0.8 mg/dl (0.7-1.2) 11/17/17 06:00 Est GFR ( Amer) > 60 11/17/17 06:00 Est GFR (Non-Af Amer) > 60 11/17/17 06:00 POC Glucose (mg/dL) 160 mg/dL (65-110) H 11/17/17 11:13 Random Glucose 124 mg/dL (70-110) H 11/17/17 06:00 Hemoglobin A1c 6.8 % (4.2-6.5) H 11/15/17 07:00 Calcium 9.1 mg/dL (8.4-10.5) 11/17/17 06:00 Phosphorus 2.8 mg/dL (2.5-4.5) 11/17/17 06:00 Magnesium 2.0 mg/dL (1.7-2.2) 11/17/17 06:00 Total Bilirubin 0.4 mg/dL (0.2-1.3) 11/17/17 06:00 AST 24 U/L (14-36) 11/17/17 06:00 ALT 40 U/L (7-56) 11/17/17 06:00 Alkaline Phosphatase 71 U/L (38-126) 11/17/17 06:00 Troponin I < 0.01 ng/mL 11/14/17 11:00 NT-Pro-B Natriuret Pep 308 pg/mL (0-450) 11/14/17 11:00 Total Protein 6.6 g/dL (5.8-8.3) 11/17/17 06:00 Albumin 3.6 g/dL (3.0-4.8) 11/17/17 06:00 Globulin 3.1 gm/dL 11/17/17 06:00 Albumin/Globulin Ratio 1.2 (1.1-1.8) 11/17/17 06:00 TSH 3rd Generation 1.19 mIU/mL (0.46-4.68) 11/15/17 07:00 Arterial Blood Potassium 3.7 mmol/L (3.6-5.2) 11/14/17 14:00 Urine Color Yellow (YELLOW) 11/14/17 11:20 Urine Appearance Clear (CLEAR) 11/14/17 11:20 Urine pH 7.5 (4.7-8.0) 11/14/17 11:20 Ur Specific [place] 1.010 (1.005-1.035) 11/14/17 11:20 Urine Protein Negative mg/dL (<30 mg/dL) 11/14/17 11:20 Urine Glucose (UA) Negative mg/dL (NEGATIVE) 11/14/17 11:20 Urine Ketones Negative mg/dL (NEGATIVE) 11/14/17 11:20 Urine Blood Negative (NEGATIVE) 11/14/17 11:20 Urine Nitrate Negative (NEGATIVE) 11/14/17 11:20 Urine Bilirubin Negative (NEGATIVE) 11/14/17 11:20 Urine Urobilinogen 0.2 E.U./dL (<1 E.U./dL) 11/14/17 11:20 Ur Leukocyte Esterase Negative Monica/uL (NEGATIVE) 11/14/17 11:20 - Hospital Course Hospital Course: Paco Mancuso DO PGY-1, [employer] Discharge Summary This is a 77 year old female with past medical history pertinent for COPD who presented on 11/14/17 with a week duration of worsening shortness of breath and generalized weakness. Patient recently came to [facility] ED and was sent home on steroids and advised to use her nebulizer treatments. Patient denied associated chest pain; but did admit to a headache with nausea, which was present on last admission, when head CT was negative. Headache was resolved with toradol in the ED. Patient was still short of breath even after 2 rounds of duonebs in ED; she was satting around 89-90% as well. This in conjunction with her LE erythema and calf tenderness was concerning for DVT/PE - but U/s LE was negative and patient's sats improved after another round of duonebs. In addition, CXR was negative for any consolidation or fluid. Thus, shortness of breath was most likely 2/2 COPD exacerbation. Chart review revealed diagnosis of CHF in the past - present admission did not seem to be CHF exacerbation given negative CXR and BNP. EF 62.2%, uncertain who gave patient dx of CHF - likely diastolic CHF. Patient did not complain of chest pain, and despite ASCVD score, she had recent stress and cath done. No further cardiac work-up was warranted. For pt's generalized weakness, patient's initial ABG did not show any respiratory acidosis, TSH was within normal limits, no signs of sepsis. Patient did have leukocytosis, but most likely 2/2 recent steroids after previous visit to ED. UA negative for infection. O2 sats have normalized ; influenza negative. Patient's weakness may be more likely 2/2 some mild depressed mood. Patient not complaining of SI/HI during admission. On day of discharge, pt's O2 sat on 2L NC was > 95%, breathing was improved greatly, and pt was able to ambulate with PT, who recommended dispo to home with home PT services. Pt was discharged to home on 11/17/17 on home medications, azithromycin PO anbx for 2 more days, and prednisone taper. Pt was instructed to follow-up with her PCP Dr. Solomon within 1 week after discharge. Discharge Exam - Head Exam Head Exam: ATRAUMATIC, NORMAL INSPECTION, NORMOCEPHALIC - Eye Exam Eye Exam: EOMI, Normal appearance - ENT Exam ENT Exam: Mucous Membranes Moist, Normal Oropharynx - Neck Exam Neck exam: Full Rom, Tenderness - Respiratory Exam Respiratory Exam: NORMAL BREATHING PATTERN Additional comments: Wheezes in all lung triplett improving - Cardiovascular Exam Cardiovascular Exam: REGULAR RHYTHM, +S1, +S2 - GI/Abdominal Exam GI & Abdominal Exam: Normal Bowel Sounds, Soft, Unremarkable - Extremities Exam Extremities exam: full ROM, normal capillary refill, pedal pulses present Additional comments: Improving leg erythema b/l - Back Exam Back exam: FULL ROM, NORMAL INSPECTION - Neurological Exam Neurological exam: Alert, CN II-XII Intact, Normal Gait, Oriented x3, Reflexes Normal - Psychiatric Exam Psychiatric exam: Flat Affect - Skin Skin Exam: Dry, Intact, Warm Discharge Plan - Discharge Medications Prescriptions: Azithromycin [Zithromax] 500 mg PO DAILY #4 tab Benzocaine/Menthol [Cepacol Sore Throat] 1 doc MT Q2H PRN #30 doc PRN Reason: Sore Throat Methylprednisolone [Medrol Dose Pack (21 tabs)] See Taper PO DAILY #21 mg - Follow Up Plan Condition: STABLE Disposition: HOME/ ROUTINE Instructions: Shortness of Breath (Dyspnea) (DC), Weakness (GEN) Additional Instructions: please follow up with Dr. Solomon please establish primary care per our discussion please take azithromycin and steroid taper as directed if symptoms persist or return or worsen please return to ed Referrals: Jefferson Solomon MD [Primary Care Provider] - <Stalin Vasquez - Last Filed: 11/17/17 17:44> Provider - Provider Date of Admission: 11/14/17 13:10 Attending physician: Stalin Vasquez MD Primary care physician: Jefferson Solomon MD Hospital Course - Lab Results Lab Results: Most Recent Lab Values WBC 9.0 10^3/ul (4.5-11.0) 11/17/17 06:00 RBC 4.19 10^6/uL (3.5-6.1) 11/17/17 06:00 Hgb 12.7 g/dL (12.0-16.0) 11/17/17 06:00 Hct 39.4 % (36.0-48.0) 11/17/17 06:00 MCV 94.0 fl (80.0-105.0) 11/17/17 06:00 MCH 30.3 pg (25.0-35.0) 11/17/17 06:00 MCHC 32.2 g/dl (31.0-37.0) 11/17/17 06:00 RDW 14.9 % (11.5-14.5) H 11/17/17 06:00 Plt Count 232 10^3/uL (120.0-450.0) 11/17/17 06:00 MPV 9.9 fl (7.0-11.0) 11/17/17 06:00 Gran % 63.0 % (50.0-68.0) 11/17/17 06:00 Lymph % (Auto) 27.4 % (22.0-35.0) 11/17/17 06:00 [place] % (Auto) 9.3 % (1.0-6.0) H 11/17/17 06:00 Eos % (Auto) 0.1 % (1.5-5.0) L 11/17/17 06:00 Baso % (Auto) 0.2 % (0.0-3.0) 11/17/17 06:00 Gran # 5.66 (1.4-6.5) 11/17/17 06:00 Lymph # (Auto) 2.5 (1.2-3.4) 11/17/17 06:00 [place] # (Auto) 0.8 (0.1-0.6) H 11/17/17 06:00 Eos # (Auto) 0.0 (0.0-0.7) 11/17/17 06:00 Baso # (Auto) 0.02 K/mm3 (0.0-2.0) 11/17/17 06:00 pCO2 38 mm/Hg (35-45) 11/14/17 14:00 pO2 76.0 mm/Hg (80-100) L 11/14/17 14:00 HCO3 30.3 mmol/L (21-28) H 11/14/17 14:00 ABG pH 7.51 (7.35-7.45) H 11/14/17 14:00 ABG Total CO2 31.5 mmol.L (22-28) H 11/14/17 14:00 ABG O2 Saturation 98.6 % (95-98) H 11/14/17 14:00 ABG Base Excess 6.9 mmol/L (-2.0-3.0) H 11/14/17 14:00 ABG Potassium 3.7 mmol/L (3.6-5.2) 11/14/17 14:00 Sodium 138.0 mmol/L (132-148) 11/14/17 14:00 Chloride 105.0 mmol/L (98-107) 11/14/17 14:00 Glucose 129 mg/dl (65-105) H 11/14/17 14:00 Lactate 0.7 mmol/L (0.7-2.1) 11/14/17 14:00 FiO2 21.0 % 11/14/17 14:00 Sodium 142 mmol/L (132-148) 11/17/17 06:00 Potassium 4.0 mmol/L (3.6-5.0) 11/17/17 06:00 Chloride 101 mmol/L (98-107) 11/17/17 06:00 Carbon Dioxide 32 mmol/L (21-33) 11/17/17 06:00 Anion Gap 13 (10-20) 11/17/17 06:00 BUN 27 mg/dL (7-21) H 11/17/17 06:00 Creatinine 0.8 mg/dl (0.7-1.2) 11/17/17 06:00 Est GFR ( Amer) > 60 11/17/17 06:00 Est GFR (Non-Af Amer) > 60 11/17/17 06:00 POC Glucose (mg/dL) 160 mg/dL (65-110) H 11/17/17 11:13 Random Glucose 124 mg/dL (70-110) H 11/17/17 06:00 Hemoglobin A1c 6.8 % (4.2-6.5) H 11/15/17 07:00 Calcium 9.1 mg/dL (8.4-10.5) 11/17/17 06:00 Phosphorus 2.8 mg/dL (2.5-4.5) 11/17/17 06:00 Magnesium 2.0 mg/dL (1.7-2.2) 11/17/17 06:00 Total Bilirubin 0.4 mg/dL (0.2-1.3) 11/17/17 06:00 AST 24 U/L (14-36) 11/17/17 06:00 ALT 40 U/L (7-56) 11/17/17 06:00 Alkaline Phosphatase 71 U/L (38-126) 11/17/17 06:00 Troponin I < 0.01 ng/mL 11/14/17 11:00 NT-Pro-B Natriuret Pep 308 pg/mL (0-450) 11/14/17 11:00 Total Protein 6.6 g/dL (5.8-8.3) 11/17/17 06:00 Albumin 3.6 g/dL (3.0-4.8) 11/17/17 06:00 Globulin 3.1 gm/dL 11/17/17 06:00 Albumin/Globulin Ratio 1.2 (1.1-1.8) 11/17/17 06:00 TSH 3rd Generation 1.19 mIU/mL (0.46-4.68) 11/15/17 07:00 Arterial Blood Potassium 3.7 mmol/L (3.6-5.2) 11/14/17 14:00 Urine Color Yellow (YELLOW) 11/14/17 11:20 Urine Appearance Clear (CLEAR) 11/14/17 11:20 Urine pH 7.5 (4.7-8.0) 11/14/17 11:20 Ur Specific [place] 1.010 (1.005-1.035) 11/14/17 11:20 Urine Protein Negative mg/dL (<30 mg/dL) 11/14/17 11:20 Urine Glucose (UA) Negative mg/dL (NEGATIVE) 11/14/17 11:20 Urine Ketones Negative mg/dL (NEGATIVE) 11/14/17 11:20 Urine Blood Negative (NEGATIVE) 11/14/17 11:20 Urine Nitrate Negative (NEGATIVE) 11/14/17 11:20 Urine Bilirubin Negative (NEGATIVE) 11/14/17 11:20 Urine Urobilinogen 0.2 E.U./dL (<1 E.U./dL) 11/14/17 11:20 Ur Leukocyte Esterase Negative Monica/uL (NEGATIVE) 11/14/17 11:20 Attending/Attestation - Attestation I have personally seen and examined this patient.: Yes I have fully participated in the care of the patient.: Yes I have reviewed all pertinent clinical information, including history, physical exam and plan: Yes Notes (Text): 11/17/17 17:42 77 year old female with past medical history of COPD who presented with complaint of generalized weakness and shortness of breath. She was started on iv steroids, xopenex and antibiotics for COPD exacerbation with improvement of symptoms. Lower extremity dopplers were negative for DVT. She had mild erythema ? cellulitis of lower legs which also improved. She was seen by PT for complaint of generalized weakness. Patient is discharged home on po steroids and antibiotics. Follow up with pmd and manufacturing engineering director. Stalin Vasquez MD Hospitalist.
== END 2017-11-17 14:10 | disposition home or self-care (01) | DRG 191 ==
LOC: ED 10:42 → ERH 13:10 → 3RNO 14:54
PROVIDERS: ADMIT Internal Medicine; ATTEND Internal Medicine
DX: J44.1 Chronic obstructive pulmonary disease with (acute) exacerbation (principal); I50.32 Chronic diastolic (congestive) heart failure; L03.115 Cellulitis of right lower limb; L03.116 Cellulitis of left lower limb; I11.0 Hypertensive heart disease with heart failure; F32.9 Major depressive disorder, single episode, unspecified; E11.51 Type 2 diabetes mellitus with diabetic peripheral angiopathy without gangrene; I48.91 Unspecified atrial fibrillation; K21.9 Gastro-esophageal reflux disease without esophagitis; H91.90 Unspecified hearing loss, unspecified ear; E03.9 Hypothyroidism, unspecified; F41.9 Anxiety disorder, unspecified; K59.00 Constipation, unspecified; E78.00 Pure hypercholesterolemia, unspecified; G43.909 Migraine, unspecified, not intractable, without status migrainosus; G47.30 Sleep apnea, unspecified; E66.9 Obesity, unspecified; Z68.33 Body mass index [BMI] 33.0-33.9, adult; Z87.891 Personal history of nicotine dependence; Z95.0 Presence of cardiac pacemaker

== ENCOUNTER 2018-03-15 12:37 | Inpatient (IN) | payer MEDICARE, OTHER ==
[2018-03-15 12:45] VITALS: BMI 34.4
--- NOTE | 2018-03-15 13:23 | ED PDOC ---
Arrival/HPI - General Chief Complaint: Chest Pain Time Seen by Provider: 03/15/18 12:38 Historian: Patient - History of Present Illness Narrative History of Present Illness (Text): 03/15/18 12:55 77 F with PMHx of Pneumonia (2 years ago), CHF (takes water pills), COPD, pacemaker, and hypothyroidism, who presents with cc of midsternal chest pain for last couple of days and worsening cough for past 2 weeks. Patient reports weakn ess, dizziness and back pain. Patient notes that she does not currently have chest pain, reporting last occurrence as this morning. Patient notes leg edema, which is unchanged from baseline. Patient denies any other complaints. Time/Duration: < week (Patient reports worsening cough for past 2 weeks), Other (Patient notes midsternal chest pain for last couple of days) Symptom Onset: Sudden Symptom Course: Unchanged Activities at Onset: Light Past Medical History - Provider Review Nursing Documentation Reviewed: Yes - Infectious Disease Hx of Infectious Diseases: None - Tetanus Immunization Tetanus Immunization: Unknown - Cardiac Hx Congestive Heart Failure: Yes (Pacemaker, diastolic CHF, cardiac cath) Hx Pacemaker: Yes (LCW) Hx Peripheral Vascular Disease: Yes - Pulmonary Hx Respiratory Disorders: Yes (USED TO SMOKE CIGARETTES-QUIT) Hx Pneumonia: Yes - Neurological Hx Neurological Disorder: Yes - HEENT Hx HEENT Disorder: Yes Hx Deafness: Yes - Renal Hx Renal Disorder: No - Endocrine/Metabolic Hx Hypothyroidism: Yes - Hematological/Oncological Hx Blood Disorders: No - Integumentary Hx Dermatological Disorder: Yes (skin tags) Other/Comment: 11-14-17 BILATERAL LE CELLULITIS-REDDENED,ERYTHEMA.DRY SKIN,EDEMA +2.TOP OF FEET +2 PITTING EDEMA. - Musculoskeletal/Rheumatological Hx Musculoskeletal Disorders: Yes Hx Arthritis: Yes Hx Falls: Yes Hx Unsteady Gait: Yes (CANE) - Gastrointestinal Hx Gastrointestinal Disorders: Yes (CONSTIPATION,COLON POLYPS,GASTRITIS) Hx Pancreatitis: Yes Other/Comment: POOR APPETTITE - Genitourinary/Gynecological Hx Genitourinary Disorders: Yes Hx Incontinence: Yes - Psychiatric Hx Psychophysiologic Disorder: Yes Hx Anxiety: Yes Hx Depression: Yes Hx Substance Use: No - Surgical History Hx Cardiac Catheterization: Yes Hx Orthopedic Surgery: Yes (Right knee surgery) Other/Comment: carpal tunnel right hand. pacemaker - Anesthesia Hx Anesthesia: Yes Hx Anesthesia Reactions: No Hx Malignant Hyperthermia: No - Suicidal Assessment Feels Threatened In Home Enviroment: No Family/Social History - Physician Review Nursing Documentation Reviewed: Yes Family/Social History: No Known Family HX Smoking Status: Former Smoker Hx Alcohol Use: No Hx Substance Use: No Allergies/Home Meds Allergies/Adverse Reactions: Allergies levofloxacin [From Levaquin] Allergy (Severe, Verified 11/14/17 14:27) ANAPHYLAXIS Home Medications: Home Meds Medication Instructions Recorded Confirmed Aspirin [Ecotrin] 81 mg PO DAILY 09/01/15 03/15/18 Atorvastatin [Lipitor] 10 mg PO DIN 09/01/15 03/15/18 Cholecalciferol (Vitamin D3) 1,000 iu PO DAILY 09/01/15 03/15/18 [Vitamin D3] Levothyroxine [Synthroid] 100 mcg PO DAILY 09/01/15 03/15/18 Potassium Chloride [K-Tab ER] 20 meq PO BID 06/06/17 03/15/18 Furosemide [Lasix] 80 mg PO BID 07/23/17 03/15/18 Esomeprazole Magnesium [Nexium 20 mg PO DAILY 03/15/18 03/15/18 24Hr] Fluticasone/Salmeterol 500/50 0 puff IH DAILY 03/15/18 03/15/18 [Advair Diskus 500/50] Metolazone 5 mg PO DAILY 03/15/18 03/15/18 Metoprolol Tartrate [Lopressor] 25 mg PO QAM 03/15/18 03/15/18 Spironolactone [Aldactone] 25 mg PO BID 03/15/18 03/15/18 Tiotropium Bryant [Spiriva 2.5 mcg IH DAILY 03/15/18 03/15/18 Respimat] Review of Systems - Physician Review All systems were reviewed & negative as marked: Yes (All other systems negative except that noted in the HPI.) Physical Exam - Physical Exam Narrative Physical Exam (Text): 03/15/18 12:55 Gen: VS reviewed, alert, well developed, well nourished, nontoxic, mild distress Eye: EOMI, PERRL Neck: no JVD, supple, no adenopathy CV: regular rate, regular rhythm, no rubs,no murmur, S1, S2 Pulm: Rales at bilateral lung bases, diminished breath sounds Abd: soft, nontender, no guarding, no rebound, no rigidity Ext: Pitting edema bilateral lower extremities Skin: good color, no rash, no cyanosis Psych: responds appropriately to questions, normal affect Neuro: oriented x3, CN2-12 intact grossly, motor intact, sensation intact Vital Signs Reviewed: Yes Vital Signs Pulse Pulse Resp BP Pulse Ox 03/15/18 12:47 72 03/15/18 12:45 81 20 127/62 95 Blood Pressure: Normal Pulse: Regular Respiratory Rate: Normal Appearance: Positive for: Well-Appearing, Non-Toxic Pain Distress: Mild Mental Status: Positive for: Alert and Oriented X 3 Medical Decision Making ED Course and Treatment: 03/15/18 12:55 Impression: 77 F presents to the Emergency department with cc of midsternal chest pain for last couple of days and worsening cough for past 2 weeks. Differential Diagnosis included but are not limited to: Plan: -- Labs -- Cbc (with differential) -- Partial Thromboplastin Time -- PT [Prothrombin Time] -- X-Ray of chest -- Albuterol 2.5 mg INH -- SOLU-Medrol 60mg IVP -- Electronics Test Engineer -- Reassess and disposition Prior Visits: Notes and results from previous visits were reviewed. Patient presented to the Emergency department last on 11/14/17 complaining of shortness of breath, worsening since one day prior to arrival. Patient was hospitalized for COPD exacerbation and generalized weakness. Progress Notes: 03/15/18 14:[address] ward to the hospitalist service. patient to be admitted for copd exacerbation. clinical presentation consistent with copd exac, no sig fluid overload or elevation inbnp to suggest acute decomp chf. patient eempirically tx with steroids, neb tx and empiric abx - RAD Interpretation Narrative RAD Interpretations (Text): cxr my read: no focal infiltrate, no ptx, no wide mediastinum 03/15/18 15:01 Speech/Language Therapist: ED Physician - EKG Interpretation EKG Interpretation (Text): 03/15/18 12:46 atrial fibrillation, av sequential pacemaker Interpreted by ED Physician: Yes - Scribe Statement The provider has reviewed the documentation as recorded by the Scribe Amanda Crain All medical record entries made by the Scribe were at my direction and personally dictated by me. I have reviewed the chart and agree that the record accurately reflects my personal performance of the history, physical exam, medical decision making, and the department course for this patient. I have also personally directed, reviewed, and agree with the discharge instructions and disposition. Disposition/Present on Arrival - Present on Arrival Any Indicators Present on Arrival: No History of DVT/PE: No History of Uncontrolled Diabetes: No Urinary Catheter: No History of Decub. Ulcer: No History Surgical Site Infection Following: None - Disposition Have Diagnosis and Disposition been Completed?: Yes Diagnosis: COPD (chronic obstructive pulmonary disease) Disposition: HOSPITALIZED Disposition Time: 15:04 Patient Plan: Admission Condition: STABLE Referrals: Jefferson Solomon MD [Primary Care Provider] - Follow up with primary Forms: [employer] ([place]enian)
[2018-03-15] MEDS ORDERED: Albuterol 0.083% Inhal Sol (2.5 mg/3 mL) UD INH STA (13:24)
[2018-03-15 13:53] LABS: BASO # 0.01 K/mm3 (0.0-2.0); BASO % 0.1 % (0.0-3.0); EOS # 0.2 (0.0-0.7); EOS % 2.5 % (1.5-5.0); GRAN # 5.18 (1.4-6.5); GRAN % 59.7 % (50.0-68.0); HEMOGLOBIN 14.8 g/dL (12.0-16.0); LYMPH # 2.6 (1.2-3.4); LYMPH % 29.5 % (22.0-35.0); MEAN CELL VOLUME 94.2 fl (80.0-105.0); MEAN CORPUSCULAR HEMOGLOBIN 31.9 pg (25.0-35.0); MEAN CORPUSCULAR HGB CONC 33.9 g/dl (31.0-37.0); MEAN PLATELET VOLUME 9.7 fl (7.0-11.0); MONO # 0.7 (0.1-0.6); MONO % 8.2 % (1.0-6.0); RBC 4.64 10^6/uL (3.5-6.1); RED CELL DISTRIBUTION WIDTH 13.8 % (11.5-14.5); WHITE BLOOD COUNT 8.7 10^3/uL (4.5-11.0)
[2018-03-15 14:16] LABS: ALB/GLOB RATIO 1.2 (1.1-1.8); ALBUMIN 4.5 g/dL (3.0-4.8); ALT/SGPT 20 U/L (7-56); AST/SGOT 27 U/L (14-36); BLOOD UREA NITROGEN 30 mg/dL (7-21); CALCIUM 10.6 mg/dL (8.4-10.5); GFR NON-AFRICAN AMERICAN 54
[2018-03-15 14:25] LABS: PARTIAL THROMBOPLASTIN TIME 32.2 Seconds (25.1-36.5); PROTHROMBIN TIME 11.5 SECONDS (9.4-12.5)
[2018-03-15 14:28] LABS: B-TYPE NATRIURETIC PEPTIDE 102 pg/mL (0-450); TROPONIN I < 0.01 ng/mL
[2018-03-15] MEDS ORDERED: Azithromycin 500MG/NS 250ml 500 MG/250 ML BAG IVPB STA (14:52)
[2018-03-15] MEDS ORDERED: cefTRIAXone 1 gm 1 GM/100 ML BAG IVPB STA (14:52)
[2018-03-15] MEDS ORDERED: Albuterol 0.083% Inhal Sol (2.5 mg/3 mL) UD NEB PRN ×2 (15:17→15:25)
--- NOTE | 2018-03-15 16:19 | CP.PCM.HP ---
<Aron Diop - Last Filed: 03/15/18 18:39> History of Present Illness - History of Present Illness History of Present Illness: PGY-1 History and Physical for Dr. Joe's service Patient is a 77 year old F with PMHx of COPD (60 pack year history of smoking), bradycardia s/p pacemaker, diastolic CHF with estimated EF of 62.5% based on 06/11/17 cardiac catheterization, atrial fibrillation, GERD, anxiety, and depression presenting to ED with worsening shortness of breath and ge neralized weakness for the past week as well as cough with white phlegm production. Of note, patient has multiple admissions history for COPD exacerbation in the past. Was given steroids and nebulizers at home but is noncompliant with respiratory therapy. She also endorses localized midsternal chest pain, with tenderness elicited to palpation, as well as nausea but no active vomiting. No fevers/chills, headaches, dizziness, changes in vision, palpitations, abdominal pain, vomiting/diarrhea/constipation, dysuria. 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 Solomon Present on Admission - Present on Admission Any Indicators Present on Admission: No Review of Systems - Review of Systems All systems: reviewed and no additional remarkable complaints except Review of Systems: as per HPI Past Patient History - Infectious Disease Hx of Infectious Diseases: None - Tetanus Immunizations Tetanus Immunization: Unknown - Past Medical History & Family History Past Medical History?: Yes - Past Social History Smoking Status: Former Smoker - CARDIAC Hx Congestive Heart Failure: Yes (Pacemaker, diastolic CHF, cardiac cath) Hx Pacemaker: Yes (LCW) Hx Peripheral Vascular Disease: Yes - PULMONARY Hx Respiratory Disorders: Yes (USED TO SMOKE CIGARETTES-QUIT) Hx Pneumonia: Yes - NEUROLOGICAL Hx Neurological Disorder: Yes - HEENT Hx HEENT Problems: Yes Hx Deafness: Yes - RENAL Hx Chronic Kidney Disease: No - ENDOCRINE/METABOLIC Hx Hypothyroidism: Yes - HEMATOLOGICAL/ONCOLOGICAL Hx Blood Disorders: No - INTEGUMENTARY Hx Dermatological Problems: Yes (skin tags) Other/Comment: 11-14-17 BILATERAL LE CELLULITIS-REDDENED,ERYTHEMA.DRY SKIN,EDEMA +2.TOP OF FEET +2 PITTING EDEMA. - MUSCULOSKELETAL/RHEUMATOLOGICAL Hx Musculoskeletal Disorders: Yes Hx Arthritis: Yes Hx Falls: Yes Hx Unsteady Gait: Yes (CANE) - GASTROINTESTINAL Hx Gastrointestinal Disorders: Yes (CONSTIPATION,COLON POLYPS,GASTRITIS) Hx Pancreatitis: Yes Other/Comment: POOR APPETTITE - GENITOURINARY/GYNECOLOGICAL Hx Genitourinary Disorders: Yes Hx Incontinence: Yes - PSYCHIATRIC Hx Psychophysiologic Disorder: Yes Hx Anxiety: Yes Hx Depression: Yes Hx Substance Use: No - SURGICAL HISTORY Hx Cardiac Catheterization: Yes Hx Orthopedic Surgery: Yes (Right knee surgery) Other/Comment: carpal tunnel right hand. pacemaker - ANESTHESIA Hx Anesthesia: Yes Hx Anesthesia Reactions: No Hx Malignant Hyperthermia: No Meds Allergies/Adverse Reactions: Allergies Allergy/AdvReac Type Severity Reaction Status Date / Time levofloxacin [From Levaquin] Allergy Severe ANAPHYLAXIS Verified 11/14/17 14:27 Physical Exam - Constitutional Appears: Non-toxic - Head Exam Head Exam: ATRAUMATIC, NORMAL INSPECTION, NORMOCEPHALIC - Eye Exam Eye Exam: EOMI, Normal appearance Pupil Exam: NORMAL ACCOMODATION, PERRL - ENT Exam ENT Exam: Mucous Membranes Moist, Normal Exam - Neck Exam Neck exam: Positive for: Full Rom, Normal Inspection - Respiratory Exam Respiratory Exam: Chest Wall Tenderness, Wheezes (mild ), NORMAL BREATHING PATTERN. absent: Accessory Muscle Use, Rales, Rhonchi, Stridor - Cardiovascular Exam Cardiovascular Exam: REGULAR RHYTHM, +S1, +S2 - GI/Abdominal Exam GI & Abdominal Exam: Normal Bowel Sounds, Soft. absent: Distended, Firm, Guarding, Rebound, Rigid, Tenderness - Extremities Exam Extremities exam: Positive for: calf tenderness, normal capillary refill, pedal edema, pedal pulses present - Back Exam Back exam: NORMAL INSPECTION - Neurological Exam Neurological exam: Alert, Oriented x3 - Psychiatric Exam Psychiatric exam: Normal Affect, Normal Mood - Skin Skin Exam: Dry, Intact, Normal Color, Warm Results - Vital Signs Recent Vital Signs: Last Vital Signs Temp Pulse 72 03/15/18 12:47 Resp 20 03/15/18 12:45 BP 127/62 03/15/18 12:45 Pulse Ox 95 03/15/18 12:45 - Labs Result Diagrams: 03/15/18 13:35 03/15/18 13:35 Labs: Laboratory Results - last 24 hr 03/15/18 03/15/18 03/15/18 13:35 13:35 13:35 WBC 8.7 RBC 4.64 Hgb 14.8 D Hct 43.7 MCV 94.2 MCH 31.9 MCHC 33.9 RDW 13.8 Plt Count 262 MPV 9.7 Gran % 59.7 Lymph % (Auto) 29.5 [place] % (Auto) 8.2 H Eos % (Auto) 2.5 Baso % (Auto) 0.1 Gran # 5.18 Lymph # (Auto) 2.6 [place] # (Auto) 0.7 H Eos # (Auto) 0.2 Baso # (Auto) 0.01 PT 11.5 INR 1.00 APTT 32.2 Sodium 138 Potassium 4.6 Chloride 95 L Carbon Dioxide 31 Anion Gap 16 BUN 30 H Creatinine 1.0 Est GFR ( Amer) > 60 Est GFR (Non-Af Amer) 54 Random Glucose 73 Calcium 10.6 H Phosphorus Magnesium Total Bilirubin 0.9 AST 27 ALT 20 Alkaline Phosphatase 77 Troponin I < 0.01 NT-Pro-B Natriuret Pep 102 Total Protein 8.3 Albumin 4.5 Globulin 3.8 Albumin/Globulin Ratio 1.2 Influenza Typ A,B (EIA) 03/15/18 03/15/18 13:35 15:19 WBC RBC Hgb Hct MCV MCH MCHC RDW Plt Count MPV Gran % Lymph % (Auto) [place] % (Auto) Eos % (Auto) Baso % (Auto) Gran # Lymph # (Auto) [place] # (Auto) Eos # (Auto) Baso # (Auto) PT INR APTT Sodium Potassium Chloride Carbon Dioxide Anion Gap BUN Creatinine Est GFR ( Amer) Est GFR (Non-Af Amer) Random Glucose Calcium Phosphorus 4.1 Magnesium 1.6 L Total Bilirubin AST ALT Alkaline Phosphatase Troponin I NT-Pro-B Natriuret Pep Total Protein Albumin Globulin Albumin/Globulin Ratio Influenza Typ A,B (EIA) Negative for flu a/b Assessment & Plan - Assessment and Plan (Free Text) Assessment: PMHx of COPD (60 pack year history of smoking), bradycardia s/p pacemaker, diastolic CHF with estimated EF of 62.5% based on 06/11/17 cardiac catheterization, atrial fibrillation, GERD, anxiety, and depression presenting to ED with worsening shortness of breath, generalized weakness, cough with white sputum production for the past week. Plan: Acute/Chronic hypoxic respiratory failure 2/2 COPD exacerbation -received solumedrol 60 mg IV in ED -duonebs -pulmicort daily -solumedrol 40 IV daily Chest Pain, likely costochondritis -recent cardiac cath (05/2017), estimated EF of 62.5% -f/u trop x 1 -EKG: paced @ 79 bpm -Cardiology (Dr. Solomon) on board -ASA 81 mg PO daily Hx CHF -b/l LE edema is chronic, unchanged -c/w Lasix 40 mg PO BID, metoprolol Chronic Hypokalemia -K 4.6 on admission -monitor and replete prn GERD/dyspepsia/nausea - Zofran PRN Hypothryoidism - Synthroid 100 mcg PO daily Vitamin D deficiency - 1,000 IU daily PPx, Diet, Disposition -DVT: heparin, scds -GI: protonix -Diet: HHD -PT/OT on board Case reviewed and discussed with Dr. Tatyana Diop DO, PGY-1 <Jefferson Joe - Last Filed: 03/16/18 17:35> Results - Vital Signs Recent Vital Signs: Last Vital Signs Temp 97.7 F 03/16/18 16:37 Pulse 72 03/16/18 16:37 Resp 18 03/16/18 16:37 BP 120/75 03/16/18 16:37 Pulse Ox 100 03/16/18 16:37 - Labs Result Diagrams: 03/16/18 05:30 03/16/18 05:30 Labs: Laboratory Results - last 24 hr 03/15/18 03/16/18 03/16/18 19:40 01:05 05:30 WBC 10.3 RBC 4.40 Hgb 13.6 Hct 41.0 MCV 93.2 MCH 30.9 MCHC 33.2 RDW 13.6 Plt Count 244 MPV 10.1 Gran % 86.1 H Lymph % (Auto) 11.7 L [place] % (Auto) 2.2 Eos % (Auto) 0.0 L Baso % (Auto) 0.0 Gran # 8.90 H Lymph # (Auto) 1.2 [place] # (Auto) 0.2 Eos # (Auto) 0.0 Baso # (Auto) 0.00 APTT Sodium Potassium Chloride Carbon Dioxide Anion Gap BUN Creatinine Est GFR ( Amer) Est GFR (Non-Af Amer) Random Glucose Calcium Phosphorus Magnesium Total Bilirubin AST ALT Alkaline Phosphatase Troponin I < 0.01 < 0.01 Total Protein Albumin Globulin Albumin/Globulin Ratio 03/16/18 03/16/18 03/16/18 05:30 05:30 05:30 WBC RBC Hgb Hct MCV MCH MCHC RDW Plt Count MPV Gran % Lymph % (Auto) [place] % (Auto) Eos % (Auto) Baso % (Auto) Gran # Lymph # (Auto) [place] # (Auto) Eos # (Auto) Baso # (Auto) APTT 31.2 Sodium 136 Potassium 4.6 Chloride 96 L Carbon Dioxide 30 Anion Gap 15 BUN 34 H Creatinine 1.1 Est GFR ( Amer) 58 Est GFR (Non-Af Amer) 48 Random Glucose 171 H Calcium 10.3 Phosphorus 3.5 Magnesium 2.1 Total Bilirubin 0.6 AST 24 ALT 20 Alkaline Phosphatase 80 Troponin I Total Protein 7.3 Albumin 4.1 Globulin 3.2 Albumin/Globulin Ratio 1.3 Attending/Attestation - Attestation I have personally seen and examined this patient.: Yes I have fully participated in the care of the patient.: Yes I have reviewed all pertinent clinical information: Yes Notes (Text): 03/16/18 17:28 Medical record note made by the resident after discussion with my direction and input after the patient was personally seen and examined by me. I have reviewed the chart and agree that the record accurately reflects by personal performance of the history, physical exam, data review, and medical decision-making, in the course for the patient. I have also personally directed the plan of care. In Summary is 76 year old female with PMH of COPD on home oxygen at night , CHF secondary to diastolic dysfunction, HTN, PUD, Hyperlipidemia , hypothyroidism, depression, gout, colonic polyps is admitted to [facility] with cough, dyspnea due to COPD exacerbation.We will start patient on nebulization , IV steroid and antibiotics. CHF with diastolic dysfunction.There is no sign of fluid overload, we will continue current dose of lasix. DVT Prophylaxis with lovenox. Management plan was discussed in detail with patient. Education was provided.
--- NOTE | 2018-03-15 16:49 | RAD ---
HISTORY: chf COMPARISON: Chest x-ray performed 11/16/17 TECHNIQUE: Chest, one view. FINDINGS: Examination limited by habitus. LUNGS: Mild pulmonary venous congestion. No focal consolidation. Please note that chest x-ray has limited sensitivity for the detection of pulmonary masses. PLEURA: No significant pleural effusion identified. No definite pneumothorax . CARDIOVASCULAR: Heart size appears top normal. Dense atherosclerotic calcifications of the aorta. OSSEOUS STRUCTURES: Degenerative changes. Osseous demineralization. VISUALIZED UPPER ABDOMEN: Unremarkable. OTHER FINDINGS: None. IMPRESSION: Dual lead left-sided pacemaker. Heart size appears top normal. Mild pulmonary venous congestion.
[2018-03-15] MEDS: Potassium Chloride 20 mEq ER Tab PO SCH (18:48)
[2018-03-15] MEDS ORDERED: Magnesium Sulfate 1 gm in D5W 1 GM/100 ML BAG IVPB ONE (18:48)
[2018-03-15] MEDS: Albuterol-Ipratrop 3 mg / 0.5 (3 ml) UD NEB SCH (20:31)
--- NOTE | 2018-03-15 22:16 | CARD ---
APPROVED REPORT Date of service: 03/15/2018 EKG Measurement Heart [id number] <Conclusion> AV sequential or dual chamber electronic pacemaker
[2018-03-16 07:02] LABS: ALB/GLOB RATIO 1.3 (1.1-1.8); ALBUMIN 4.1 g/dL (3.0-4.8); CALCIUM 10.3 mg/dL (8.4-10.5)
[2018-03-16 07:13] LABS: GRAN # 8.9 (1.4-6.5); GRAN % 86.1 % (50.0-68.0); HEMOGLOBIN 13.6 g/dL (12.0-16.0); LYMPH # 1.2 (1.2-3.4); LYMPH % 11.7 % (22.0-35.0); MEAN CELL VOLUME 93.2 fl (80.0-105.0); MEAN CORPUSCULAR HEMOGLOBIN 30.9 pg (25.0-35.0); MEAN CORPUSCULAR HGB CONC 33.2 g/dl (31.0-37.0); MEAN PLATELET VOLUME 10.1 fl (7.0-11.0); MONO # 0.2 (0.1-0.6); MONO % 2.2 % (1.0-6.0); RBC 4.4 10^6/uL (3.5-6.1); RED CELL DISTRIBUTION WIDTH 13.6 % (11.5-14.5); WHITE BLOOD COUNT 10.3 10^3/uL (4.5-11.0)
[2018-03-16] MEDS: Albuterol-Ipratrop 3 mg / 0.5 (3 ml) UD NEB SCH (07:36)
[2018-03-16] MEDS: Potassium Chloride 20 mEq ER Tab PO SCH ×2 (09:33→17:58)
[2018-03-16] MEDS: Cholecalciferol 1,000 INTLU TAB PO SCH (09:35)
[2018-03-16] MEDS: Levothyroxine 100 MCG TAB PO SCH (09:39)
[2018-03-16] MEDS ORDERED: Budesonide 0.5 mg/2 ml Inhal Susp UD IH SCH (10:00)
[2018-03-16] MEDS ORDERED: MethylPREDNISolone 40 mg Vial IVP SCH (10:00)
[2018-03-16] MEDS ORDERED: Arformoterol 15 mcg/2 ml Inh Sol IH SCH (10:00)
[2018-03-16] MEDS ORDERED: Ipratropium 0.02% Inhal Soln (0.5 mg/2.5 ml) UD IH PRN (10:24)
--- NOTE | 2018-03-16 13:05 | CP.PCM.PN ---
<Dennis Weaver - Last Filed: 03/16/18 15:26> Subjective - Date & Time of Evaluation Date of Evaluation: 03/16/18 Time of Evaluation: 12:59 - Subjective Subjective: PGY1 Progress Note for Dr. Joe Patient was seen and evaluated at bedside this morning. Patient's daughter is at bedside. With permission of the patient, the conversation continued in the patient's daughter's presence. Patient states she was able to eat without issue. Patient admits states she is upset because she did not get her medication last night; xanax 0.25mg. Patient says that for this reason, she was unable to sleep. Patient admits to chronic lower extremity pain, and difficulty walking. 12 point ROS is otherwise unremarkable. Objective - Vital Signs/Intake and Output Vital Signs (last 24 hours): Temp Pulse Resp BP Pulse Ox 97.8 F 109 H 20 121/66 98 03/16/18 08:33 03/16/18 10:00 03/16/18 08:33 03/16/18 09:33 03/16/18 08:33 - Medications Medications: Current Medications Alprazolam (Xanax) 0.5 mg PO TID PRN; Protocol PRN Reason: Anxiety Arformoterol Tartrate (Brovana) 1 mcg IH DAILY [facility] Aspirin (Ecotrin) 81 mg PO DAILY [facility] Atorvastatin Calcium (Lipitor) 10 mg PO DIN [facility] Last Admin: 03/15/18 17:06 Dose: Not Given Budesonide (Pulmicort Respules) 1 mg IH DAILY [facility] Cholecalciferol (Vitamin D) 1,000 intlu PO DAILY [facility] Last Admin: 03/16/18 09:35 Dose: 1,000 intlu Furosemide (Lasix) 80 mg PO BID [facility] Last Admin: 03/16/18 09:33 Dose: 80 mg Heparin Sodium (Porcine) (Heparin) 5,000 units SC Q8 [facility]; Protocol Last Admin: 03/16/18 05:47 Dose: 5,000 units Ipratropium [place] (Atrovent) 0.5 mg IH [id number] [facility] Ipratropium [place] (Atrovent) 0.5 mg IH [id number] PRN PRN Reason: Shortness of Breath Levothyroxine Sodium (Synthroid) 100 mcg PO DAILY [facility] Last Admin: 03/16/18 09:39 Dose: 100 mcg Metoprolol Tartrate (Lopressor) 25 mg PO QAM [facility] Last Admin: 03/16/18 09:28 Dose: 25 mg Ondansetron HCl (Zofran Odt) 4 mg PO Q8H PRN PRN Reason: Nausea/Vomiting Pantoprazole Sodium (Protonix Ec Tab) 40 mg PO 0600 [facility] Potassium Chloride (K-Dur 20 Meq Er Tab) 20 meq PO BID [facility] Last Admin: 03/16/18 09:33 Dose: 20 meq Spironolactone (Aldactone) 25 mg PO BID [facility] Last Admin: 03/16/18 09:34 Dose: 25 mg - Labs Labs: 03/16/18 05:30 03/16/18 05:30 PT 11.5 SECONDS (9.4-12.5) 03/15/18 13:35 INR 1.00 03/15/18 13:35 APTT 31.2 Seconds (25.1-36.5) 03/16/18 05:30 - Additional Findings Additional findings: - Constitutional Appears: Non-toxic - Head Exam Head Exam: ATRAUMATIC, NORMAL INSPECTION, NORMOCEPHALIC - Eye Exam Eye Exam: EOMI, Normal appearance Pupil Exam: NORMAL ACCOMODATION, PERRL - ENT Exam ENT Exam: Mucous Membranes Moist, Normal Exam - Neck Exam Neck exam: Positive for: Full Rom, Normal Inspection - Respiratory Exam Respiratory Exam: Chest Wall Tenderness, Wheezes (mild ), NORMAL BREATHING PATTERN. absent: Accessory Muscle Use, Rales, Rhonchi, Stridor - Cardiovascular Exam Cardiovascular Exam: REGULAR RHYTHM, +S1, +S2 - GI/Abdominal Exam GI & Abdominal Exam: Normal Bowel Sounds, Soft. absent: Distended, Firm, Guarding, Rebound, Rigid, Tenderness - Extremities Exam Extremities exam: Positive for: calf tenderness, normal capillary refill, pedal edema, pedal pulses present - Back Exam Back exam: NORMAL INSPECTION - Neurological Exam Neurological exam: Alert, Oriented x3 - Psychiatric Exam Psychiatric exam: Normal Affect, Normal Mood - Skin Skin Exam: Dry, Intact, Normal Color, Warm Assessment and Plan - Assessment and Plan (Free Text) Assessment: PMHx of COPD (60 pack year history of smoking), bradycardia s/p pacemaker, diastolic CHF with estimated EF of 62.5% based on 06/11/17 cardiac catheterization, atrial fibrillation, GERD, anxiety, and depression presenting to ED with worsening shortness of breath, generalized weakness, cough with white sputum production for the past week. Plan: Acute/Chronic hypoxic respiratory failure 2/2 COPD exacerbation - Received solumedrol 60 mg IV in ED - Patient had tremors thus, Duonebs dsicontinued - Start Atrovan - Pulmicort daily - Discontinue solumedrol 40 IV daily - Stat solumedrol 40mg PO daily History of Anxiety - Patient started on xanax 0.25mg PO HS - Given Stat: xanax 0.25mg PO Chest Pain, likely costochondritis - Recent cardiac cath (05/2017), estimated EF of 62.5% - Trop negative x3 - EKG: paced @ 79 bpm - Cardiology (Dr. Solomon) on board; recommendations appreciated - ASA 81 mg PO daily - Discontinue Telemetry Hx CHF - Bilateral LE edema is chronic, unchanged - Continue: Lasix 40 mg PO BID, metoprolol Chronic Hypokalemia - K 4.6 on admission - Monitor and replete prn GERD/dyspepsia/nausea - Zofran PRN Hypothryoidism - Synthroid 100 mcg PO daily Vitamin D deficiency - 1,000 IU daily PPx, Diet, Disposition -DVT: heparin, scds -GI: protonix -Diet: HHD -PT/OT on board Case reviewed and discussed with Dr. Tatyana Weaver PGY1 <Jefferson Joe - Last Filed: 03/16/18 17:36> Objective - Vital Signs/Intake and Output Vital Signs (last 24 hours): Temp Pulse Resp BP Pulse Ox 97.7 F 72 18 120/75 100 03/16/18 16:37 03/16/18 16:37 03/16/18 16:37 03/16/18 16:37 03/16/18 16:37 - Medications Medications: Current Medications Alprazolam (Xanax) 0.5 mg PO TID PRN; Protocol PRN Reason: Anxiety Arformoterol Tartrate (Brovana) 1 mcg IH DAILY [facility] Aspirin (Ecotrin) 81 mg PO DAILY [facility] Atorvastatin Calcium (Lipitor) 10 mg PO DIN [facility] Last Admin: 03/15/18 17:06 Dose: Not Given Budesonide (Pulmicort Respules) 1 mg IH DAILY [facility] Last Admin: 03/16/18 13:22 Dose: 1 mg Cholecalciferol (Vitamin D) 1,000 intlu PO DAILY [facility] Last Admin: 03/16/18 09:35 Dose: 1,000 intlu Furosemide (Lasix) 80 mg PO BID [facility] Last Admin: 03/16/18 09:33 Dose: 80 mg Heparin Sodium (Porcine) (Heparin) 5,000 units SC Q8 [facility]; Protocol Last Admin: 03/16/18 05:47 Dose: 5,000 units Ipratropium [place] (Atrovent) 0.5 mg IH [id number] [facility] Last Admin: 03/16/18 13:22 Dose: 0.5 mg Ipratropium [place] (Atrovent) 0.5 mg IH [id number] PRN PRN Reason: Shortness of Breath Levothyroxine Sodium (Synthroid) 100 mcg PO DAILY [facility] Last Admin: 03/16/18 09:39 Dose: 100 mcg Metoprolol Tartrate (Lopressor) 25 mg PO QAM [facility] Last Admin: 03/16/18 09:28 Dose: 25 mg Ondansetron HCl (Zofran Odt) 4 mg PO Q8H PRN PRN Reason: Nausea/Vomiting Pantoprazole Sodium (Protonix Ec Tab) 40 mg PO 0600 [facility] Potassium Chloride (K-Dur 20 Meq Er Tab) 20 meq PO BID [facility] Last Admin: 03/16/18 09:33 Dose: 20 meq Spironolactone (Aldactone) 25 mg PO BID [facility] Last Admin: 03/16/18 09:34 Dose: 25 mg - Labs Labs: 03/16/18 05:30 03/16/18 05:30 PT 11.5 SECONDS (9.4-12.5) 03/15/18 13:35 INR 1.00 03/15/18 13:35 APTT 31.2 Seconds (25.1-36.5) 03/16/18 05:30 Attending/Attestation - Attestation I have personally seen and examined this patient.: Yes I have fully participated in the care of the patient.: Yes I have reviewed all pertinent clinical information, including history, physical exam and plan: Yes Notes (Text): 03/16/18 17:36 Medical record note made by the resident after discussion with my direction and input after the patient was personally seen and examined by me. I have reviewed the chart and agree that the record accurately reflects by personal performance of the history, physical exam, data review, and medical decision-making, in the course for the patient. I have also personally directed the plan of care.
[2018-03-16] MEDS: Ipratropium 0.02% Inhal Soln (0.5 mg/2.5 ml) UD IH SCH ×2 (13:22→19:53)
--- NOTE | 2018-03-17 05:25 | CON ---
DATE: 03/16/2018 REASON FOR CONSULTATION AND FOLLOWUP: Cardiac evaluation, history of coronary artery disease, she has a pacemaker, admitted with shortness of breath, possibly acute exacerbation of COPD. SUBJECTIVE: The patient is a 77-year-old female with past medical history of significant history of smoking, nonobstructive coronary artery disease, pacemaker, sick sinus syndrome, presented with generalized body aches, some shortness of breath, headache, admitted with acute exacerbation of COPD, though the patient is not actively wheezing at this time. Cardiac consult was called for followup. PAST MEDICAL HISTORY: Significant for COPD, CHF, atrial fibrillation, anxiety, depression. Past history, as mentioned history of COPD, hypertension, status post permanent pacemaker, history of CHF. PAST SURGICAL HISTORY: Significant for pacemaker placement, right knee surgery, history of cardiac catheterization. Previous cardiac workup, the patient had stress test 05/30/2017 that showed ischemia. The patient had a cardiac catheterization 06/11/2017 that showed a normal LV contractility, ejection fraction about 60%,, LVEDP ranged 25 to 30. Right heart catheterization showed right atrial pressure, RA 15, RV 44/15, PA 40/25, mean PA 32, wedge capillary pressure 24, and coronaries were normal. Echo on 06/09/2017 showed normal systolic function, ejection fraction 55%, [id number] aortic regurgitation, [id number] mitral regurgitation, mild tricuspid regurgitation, RVSP is 35 mmHg. SOCIAL HISTORY: The patient stopped smoking 3-4 years ago, used to smoke a pack, [id number] smoking. Denies any history of alcohol abuse. Denies any history of substance use. ALLERGIES: THE PATIENT IS ALLERGIC TO LEVAQUIN, ALLERGIC TO LIPITOR, ACCORDING TO DAUGHTERS GETS RASH AND SOMETIMES FEELS BODY ACHES. HOME MEDICATIONS: The patient is taking Spiriva, spironolactone, potassium, metoprolol, metolazone, levothyroxine furosemide, atorvastatin, aspirin 81 mg daily. REVIEW OF SYSTEMS: As per HPI. PHYSICAL EXAMINATION: VITAL SIGNS: Height of the patient is 5 feet 2 inches; weight of the patient 188 pounds; body mass index 34.4 kg/m2. Rest of the examination as follows, the temperature afebrile, heart rate 110, blood pressure 120/60. HEENT: PERRLA. Extraocular muscles are intact. NECK: Supple. No carotid bruits or thyromegaly. CHEST: Clear to auscultation. HEART: S1, S2 regular. ABDOMEN: Soft. EXTREMITIES: Clubbing and cyanosis negative. LABORATORY DATA: EKG showed AV sequential pacing underlying normal sinus mechanism. Blood workup as follows; WBC 10.3, hemoglobin 13.6, hematocrit 41.0, and platelet count 224. Chemistry shows sodium 130, potassium 4.6, chloride 96, carbon dioxide 30, anion gap of 15, BUN 30, creatinine 1.1. Magnesium 2.1. Troponin remains 0.01. IMPRESSION: Exacerbation of chronic obstructive pulmonary disease, generalized body ache, obesity, diabetes, hypertension, hyperlipidemia, status post cardiac catheterization, normal coronaries in 05/2017, history of sick sinus syndrome, status post permanent pacemaker, status post 2 years ago battery change with pacemaker generator change, pulmonary hypertension, echo showed preserved LV function, [id number] aortic regurgitation, [id number] mitral regurgitation, mild tricuspid regurgitation. RECOMMENDATIONS: Continue aggressive treatment for COPD, continue baby aspirin, continue DVT prophylaxis, continue gentle diuretics. Repeat the lab in the morning. We will follow with you. Thank you Dr. Marcial for providing us the opportunity in taking care of the patient, Cinthya Kimball. We will follow with you. We will check lipid profile, TSH, hemoglobin A1c. Further recommendation depending on the hospital course. We will follow with you. So far no evidence of acute WI. Jefferson Levine MD
[2018-03-17] MEDS: Pantoprazole 40 mg EC Tab PO SCH (05:28)
[2018-03-17 06:20] LABS: BASO # 0.01 K/mm3 (0.0-2.0); BASO % 0.1 % (0.0-3.0); GRAN # 12.29 (1.4-6.5); GRAN % 79.2 % (50.0-68.0); HEMOGLOBIN 13.6 g/dL (12.0-16.0); LYMPH % 12.6 % (22.0-35.0); MEAN CELL VOLUME 92.2 fl (80.0-105.0); MEAN CORPUSCULAR HEMOGLOBIN 31.3 pg (25.0-35.0); MEAN CORPUSCULAR HGB CONC 33.9 g/dl (31.0-37.0); MONO # 1.3 (0.1-0.6); MONO % 8.1 % (1.0-6.0); RBC 4.35 10^6/uL (3.5-6.1); RED CELL DISTRIBUTION WIDTH 13.6 % (11.5-14.5); WHITE BLOOD COUNT 15.5 10^3/uL (4.5-11.0)
[2018-03-17 07:21] LABS: ALB/GLOB RATIO 1.2 (1.1-1.8); ALBUMIN 4.1 g/dL (3.0-4.8); CALCIUM 10.2 mg/dL (8.4-10.5)
[2018-03-17] MEDS: Budesonide 0.5 mg/2 ml Inhal Susp UD IH SCH (07:54)
[2018-03-17] MEDS: Ipratropium 0.02% Inhal Soln (0.5 mg/2.5 ml) UD IH SCH ×3 (07:56→20:21)
[2018-03-17] MEDS ORDERED: Potassium Chloride 20 mEq ER Tab PO SCH (08:00)
[2018-03-17] MEDS ORDERED: Arformoterol 15 mcg/2 ml Inh Sol IH SCH (09:19)
[2018-03-17] MEDS: Cholecalciferol 1,000 INTLU TAB PO SCH (09:42)
[2018-03-17] MEDS: Potassium Chloride 20 mEq ER Tab PO SCH ×3 (09:42→17:19)
[2018-03-17] MEDS: Levothyroxine 100 MCG TAB PO SCH (09:43)
--- NOTE | 2018-03-17 11:19 | PN ---
DATE: 03/17/2018 REASON FOR CONSULTATION AND FOLLOWUP: Cardiac evaluation, history of pacemaker, history of cardiac catheterization, nonobstructive coronary artery disease, admitted with shortness of breath, possibly COPD exacerbation. SUBJECTIVE: The patient denies any chest pain, shortness of breath or any palpitation. OBJECTIVE: GENERAL: Not in apparent distress, feels better, complain of sore throat. VITAL SIGNS: Temperature afebrile, heart rate 82, blood pressure 112/68. HEENT: PERRLA. Extraocular muscles intact. NECK: Supple. No carotid bruit or thyromegaly. CHEST: Clear to auscultation. HEART: S1, S2 regular. ABDOMEN: Soft. EXTREMITIES: Clubbing and cyanosis negative. LABORATORY DATA: Blood workup as follows; WBC 15.5, hemoglobin 13.6, hematocrit 40.1, platelet count 259. Chemistry shows sodium 134, potassium 4, chloride 91, carbon dioxide 32, anion gap of 14, BUN 50, creatinine 1.3. Troponin remains negative. IMPRESSION: This is a 77-year-old obese female with past medical history significant for chronic obstructive pulmonary disease, ex-smoker, history of sick sinus syndrome, status post permanent pacemaker, history of cardiac catheterization in 06/11/2017 shows normal coronaries, mildly elevated PA pressure, admitted with possible acute bronchitis and chronic obstructive pulmonary disease exacerbation. RECOMMENDATIONS: Aggressively treated for COPD. No evidence of acute ME. History of pacemaker, history of generator change. We will add on Cepacol lozenges because the patient is complaining of sore throat. Thank you Dr. Joe for providing us the opportunity in taking care of the patient, Cinthya Kimball. Jefferson Levine MD
[2018-03-17] MEDS: guaiFENesin-DM 600-30 mg ER Tab PO SCH ×2 (11:43→17:19)
--- NOTE | 2018-03-17 13:08 | CP.PCM.PN ---
Subjective - Date & Time of Evaluation Date of Evaluation: 03/17/18 Time of Evaluation: 13:01 - Subjective Subjective: PGY1 Medicine Progress Note for Dr. Joe Patient was seen and evaluated at bedside this morning. Patient states she was able to eat without issue. Patient states she was able to sleep overnight without issue. Patient complains of cough. Patient able to have bowel movement. Patient otherwise denies headache, chest pain, abdominal pain, nausea, vomiting, numbness and/or tingling in lower extremities. Objective - Vital Signs/Intake and Output Vital Signs (last 24 hours): Temp Pulse Resp BP Pulse Ox 98.4 F 82 20 112/60 96 03/17/18 08:30 03/17/18 08:30 03/17/18 08:30 03/17/18 09:43 03/17/18 08:30 - Medications Medications: Current Medications Alprazolam (Xanax) 0.5 mg PO TID PRN; Protocol PRN Reason: Anxiety Last Admin: 03/16/18 21:56 Dose: 0.5 mg Arformoterol Tartrate (Brovana) 15 mcg IH DAILY [facility] Aspirin (Ecotrin) 81 mg PO DAILY [facility] Last Admin: 03/17/18 10:52 Dose: 81 mg Atorvastatin Calcium (Lipitor) 10 mg PO DIN [facility] Last Admin: 03/16/18 17:58 Dose: 10 mg Benzocaine/Menthol (Cepacol Sore Throat) 1 doc MT Q2H PRN PRN Reason: Sore Throat Budesonide (Pulmicort Respules) 1 mg IH 0800 [facility] Last Admin: 03/17/18 07:54 Dose: 0.5 mg Cholecalciferol (Vitamin D) 1,000 intlu PO DAILY [facility] Last Admin: 03/17/18 09:42 Dose: 1,000 intlu Doxycycline Hyclate (Doryx) 100 mg PO Q12 [facility]; Protocol Stop: 03/22/18 11:01 Last Admin: 03/17/18 11:43 Dose: 100 mg Furosemide (Lasix) 80 mg PO BID [facility] Last Admin: 03/17/18 09:43 Dose: 80 mg Guaifenesin/Dextromethorphan (Mucinex-Dm 600-30 Mg) 1 tab PO BID [facility] Last Admin: 03/17/18 11:43 Dose: 1 tab Heparin Sodium (Porcine) (Heparin) 5,000 units SC Q8 [facility]; Protocol Last Admin: 03/17/18 05:28 Dose: 5,000 units Ipratropium [place] (Atrovent) 0.5 mg IH [id number] [facility] Last Admin: 03/17/18 07:56 Dose: 0.5 mg Ipratropium [place] (Atrovent) 0.5 mg IH [id number] PRN PRN Reason: Shortness of Breath Levothyroxine Sodium (Synthroid) 100 mcg PO DAILY [facility] Last Admin: 03/17/18 09:43 Dose: 100 mcg Metoprolol Tartrate (Lopressor) 25 mg PO QAM [facility] Last Admin: 03/17/18 09:48 Dose: 25 mg Ondansetron HCl (Zofran Odt) 4 mg PO Q8H PRN PRN Reason: Nausea/Vomiting Pantoprazole Sodium (Protonix Ec Tab) 40 mg PO 0600 [facility] Last Admin: 03/17/18 05:28 Dose: 40 mg Potassium Chloride (K-Dur 20 Meq Er Tab) 20 meq PO TID [facility] Last Admin: 03/17/18 09:42 Dose: 20 meq Prednisone (Prednisone Tab) 40 mg PO DAILY [facility] Stop: 03/22/18 10:01 Last Admin: 03/17/18 09:42 Dose: 40 mg Spironolactone (Aldactone) 25 mg PO BID [facility] Last Admin: 03/17/18 09:43 Dose: 25 mg - Labs Labs: 03/17/18 06:00 03/17/18 06:00 PT 11.5 SECONDS (9.4-12.5) 03/15/18 13:35 INR 1.00 03/15/18 13:35 APTT 31.2 Seconds (25.1-36.5) 03/16/18 05:30 - Additional Findings Additional findings: - Constitutional Appears: Non-toxic - Head Exam Head Exam: ATRAUMATIC, NORMAL INSPECTION, NORMOCEPHALIC - Eye Exam Eye Exam: EOMI, Normal appearance Pupil Exam: NORMAL ACCOMODATION, PERRL - ENT Exam ENT Exam: Mucous Membranes Moist, Normal Exam - Neck Exam Neck exam: Positive for: Full Rom, Normal Inspection - Respiratory Exam Respiratory Exam: Chest Wall Tenderness, Wheezes (mild ), NORMAL BREATHING PATTERN. absent: Accessory Muscle Use, Rales, Rhonchi, Stridor - Cardiovascular Exam Cardiovascular Exam: REGULAR RHYTHM, +S1, +S2 - GI/Abdominal Exam GI & Abdominal Exam: Normal Bowel Sounds, Soft. absent: Distended, Firm, Guarding, Rebound, Rigid, Tenderness - Extremities Exam Extremities exam: Positive for: calf tenderness, normal capillary refill, pedal edema, pedal pulses present - Back Exam Back exam: NORMAL INSPECTION - Neurological Exam Neurological exam: Alert, Oriented x3 - Psychiatric Exam Psychiatric exam: Normal Affect, Normal Mood - Skin Skin Exam: Dry, Intact, Normal Color, Warm Assessment and Plan - Assessment and Plan (Free Text) Assessment: PMHx of COPD (60 pack year history of smoking), bradycardia s/p pacemaker, diastolic CHF with estimated EF of 62.5% based on 06/11/17 cardiac catheterization, atrial fibrillation, GERD, anxiety, and depression presenting to ED with worsening shortness of breath, generalized weakness, cough with white sputum production for the past week. Patient is pending medical optimization prior to TCU placement. Plan: Acute/Chronic hypoxic respiratory failure 2/2 COPD exacerbation - Received solumedrol 60 mg IV in ED - Patient had tremors thus, Duonebs dsicontinued - Start mucinex for cough - Start Cepacol - Continue Atrovan - Pulmicort daily - Discontinue solumedrol 40 IV daily - Continue Prednisone 40mg PO daily History of Anxiety - Patient started on xanax 0.25mg PO HS - Given Stat: xanax 0.25mg PO Chest Pain, likely costochondritis - Recent cardiac cath (05/2017), estimated EF of 62.5% - Trop negative x3 - EKG: paced @ 79 bpm - Cardiology (Dr. Solomon) on board; recommendations appreciated - ASA 81 mg PO daily - Discontinue Telemetry Bilateral Lower Extremity Edema, with findings suspicious for cellulitis - 03/17: Start Doxycycline 100mg PO Q12 (x5 days total) - Lower extremity ultrasound obtained: negative for DVT bilaterally; see report for details. History of CHF - Lower extremity edema is chronic - Continue: Lasix 40 mg PO BID, metoprolol Chronic Hypokalemia - K 4.6 on admission - Monitor and replete prn GERD/dyspepsia/nausea - Zofran PRN Hypothryoidism - Synthroid 100 mcg PO daily Vitamin D deficiency - 1,000 IU daily PPx, Diet, Disposition -DVT: heparin, scds -GI: protonix -Diet: HHD -PT/OT on board Case reviewed and discussed with Dr. Tatyana Weaver PGY1
--- NOTE | 2018-03-17 14:50 | IP.NPCORE ---
COPD Progress Note - COPD Progress Note Plan to assess at outpatient follow up: Yes Symptoms:: Cough Initial CXR:: mild congestion Date:: 03/15/18 Oxygen Saturation/Pulse Oximetry:: 96 Nebulizers Q2-4 hrs:: Duonebs/Albuterol Therapy Antibiotics (Name/Dose/Frequency):: Doryx 100 mg po q12 Antibiotics Not Indicated: No Systemic Steroids w/ methylprednisolone Name/Dose/Frequency:: prednisone 40 mg po daily Oxygen Delivery Method: Nasal Cannula Oxygen Flow Rate: 2
[2018-03-17] MEDS: Benzocaine/Menthol (Cepacol) Lozenge MT PRN (17:19)
[2018-03-18] MEDS: Ipratropium 0.02% Inhal Soln (0.5 mg/2.5 ml) UD IH SCH ×3 (02:15→13:21)
[2018-03-18] MEDS: Pantoprazole 40 mg EC Tab PO SCH (05:30)
[2018-03-18 06:46] LABS: GRAN # 8.36 (1.4-6.5); GRAN % 71.6 % (50.0-68.0); HEMOGLOBIN 13.8 g/dL (12.0-16.0); LYMPH # 2.4 (1.2-3.4); LYMPH % 20.1 % (22.0-35.0); MEAN CELL VOLUME 92.6 fl (80.0-105.0); MEAN CORPUSCULAR HEMOGLOBIN 31.1 pg (25.0-35.0); MEAN CORPUSCULAR HGB CONC 33.6 g/dl (31.0-37.0); MEAN PLATELET VOLUME 10.6 fl (7.0-11.0); MONO % 8.3 % (1.0-6.0); RBC 4.44 10^6/uL (3.5-6.1); RED CELL DISTRIBUTION WIDTH 13.6 % (11.5-14.5); WHITE BLOOD COUNT 11.7 10^3/uL (4.5-11.0)
[2018-03-18 06:59] VITALS: BP 126/69; PULSE 74; RESP 20; TEMP 98.6; O2SAT 96
[2018-03-18 07:29] LABS: ALB/GLOB RATIO 1.2 (1.1-1.8); ALBUMIN 4.1 g/dL (3.0-4.8); CALCIUM 10.3 mg/dL (8.4-10.5)
[2018-03-18] MEDS: Budesonide 0.5 mg/2 ml Inhal Susp UD IH SCH (07:36)
--- NOTE | 2018-03-18 08:00 | CP.PCM.PN ---
Subjective - Date & Time of Evaluation Date of Evaluation: 03/18/18 Time of Evaluation: 06:50 - Subjective Subjective: Awake, alert, no distress Reason for consultation and follow up: Cardiac evaluation of shortness of breath, exacerbation of COPD,history of non obstructive coronary artery disease, PPM for SSS Seen and examined by me and Dr. Levine Objective - Vital Signs/Intake and Output Vital Signs (last 24 hours): Temp Pulse Resp BP Pulse Ox 98.6 F 74 20 126/69 96 03/18/18 06:00 03/18/18 06:00 03/18/18 06:00 03/18/18 06:00 03/18/18 06:00 Intake and Output: 03/18/18 03/18/18 06:59 18:59 Intake Total 480 Balance 480 - Medications Medications: Current Medications Alprazolam (Xanax) 0.5 mg PO TID PRN; Protocol PRN Reason: Anxiety Last Admin: 03/18/18 00:01 Dose: 0.5 mg Arformoterol Tartrate (Brovana) 15 mcg IH DAILY [facility] Aspirin (Ecotrin) 81 mg PO DAILY [facility] Last Admin: 03/17/18 10:52 Dose: 81 mg Atorvastatin Calcium (Lipitor) 10 mg PO DIN [facility] Last Admin: 03/17/18 17:19 Dose: 10 mg Benzocaine/Menthol (Cepacol Sore Throat) 1 doc MT Q2H PRN PRN Reason: Sore Throat Last Admin: 03/17/18 17:19 Dose: 1 doc Budesonide (Pulmicort Respules) 1 mg IH 0800 [facility] Last Admin: 03/18/18 07:36 Dose: 1 mg Cholecalciferol (Vitamin D) 1,000 intlu PO DAILY [facility] Last Admin: 03/17/18 09:42 Dose: 1,000 intlu Doxycycline Hyclate (Doryx) 100 mg PO Q12 [facility]; Protocol Stop: 03/22/18 11:01 Last Admin: 03/17/18 21:47 Dose: 100 mg Furosemide (Lasix) 80 mg PO BID [facility] Last Admin: 03/17/18 17:23 Dose: Not Given Guaifenesin/Dextromethorphan (Mucinex-Dm 600-30 Mg) 1 tab PO BID [facility] Last Admin: 03/17/18 17:19 Dose: 1 tab Heparin Sodium (Porcine) (Heparin) 5,000 units SC Q8 [facility]; Protocol Last Admin: 03/18/18 05:30 Dose: 5,000 units Ipratropium [place] (Atrovent) 0.5 mg IH [id number] [facility] Last Admin: 03/18/18 07:36 Dose: 0.5 mg Ipratropium [place] (Atrovent) 0.5 mg IH [id number] PRN PRN Reason: Shortness of Breath Levothyroxine Sodium (Synthroid) 100 mcg PO DAILY [facility] Last Admin: 03/17/18 09:43 Dose: 100 mcg Metoprolol Tartrate (Lopressor) 25 mg PO QAM [facility] Last Admin: 03/17/18 09:48 Dose: 25 mg Ondansetron HCl (Zofran Odt) 4 mg PO Q8H PRN PRN Reason: Nausea/Vomiting Pantoprazole Sodium (Protonix Ec Tab) 40 mg PO 0600 [facility] Last Admin: 03/18/18 05:30 Dose: 40 mg Potassium Chloride (K-Dur 20 Meq Er Tab) 20 meq PO TID [facility] Last Admin: 03/17/18 17:19 Dose: 20 meq Prednisone (Prednisone Tab) 40 mg PO DAILY [facility] Stop: 03/22/18 10:01 Last Admin: 03/17/18 09:42 Dose: 40 mg Spironolactone (Aldactone) 25 mg PO BID [facility] Last Admin: 03/17/18 17:24 Dose: Not Given - Labs Labs: 03/18/18 05:45 03/18/18 05:45 PT 11.5 SECONDS (9.4-12.5) 03/15/18 13:35 INR 1.00 03/15/18 13:35 APTT 31.2 Seconds (25.1-36.5) 03/16/18 05:30 - Constitutional Appears: Non-toxic, No Acute Distress - Head Exam Head Exam: NORMAL INSPECTION, NORMOCEPHALIC - Eye Exam Eye Exam: Normal appearance Pupil Exam: NORMAL ACCOMODATION - ENT Exam ENT Exam: Mucous Membranes Moist, Normal Exam - Respiratory Exam Respiratory Exam: Decreased Breath Sounds, Clear to Ausculation Bilateral, NORMAL BREATHING PATTERN - Cardiovascular Exam Cardiovascular Exam: +S1, +S2 Additional comments: PPM - GI/Abdominal Exam GI & Abdominal Exam: Soft, Normal Bowel Sounds - Extremities Exam Extremities Exam: Full ROM, Normal Capillary Refill - Neurological Exam Neurological Exam: Alert, Awake, Oriented x3 - Psychiatric Exam Psychiatric exam: Normal Affect, Normal Mood - Skin Skin Exam: Dry, Normal Color, Warm Assessment and Plan - Assessment and Plan (Free Text) Assessment: A 77 year old female who came in to the ER due to shortness of breath, exacerbation of chronic COPD ( 60 pack year history of smoking) ex-smoker, history of cardiac cath 06/11/2017 non obstructive coronary artery disease, PPM for sick sinus syndrome, CHF,atrial fibrillation, GERD, anxiety, and depression, right knee surgery uses cane to walk.She has steroids and nebulizers at home but is noncompliant with respiratory therapy. Plan: No distress, denies shortness of breath Heart rate and blood pressure controlled Cardiac status stable Symptoms improved May discharge from cardiac standpoint Continue nebulizer treatments Continue current treatment Chart reviewed Will follow up Plan and treatment discussed with Dr. Levine
[2018-03-18] MEDS: guaiFENesin-DM 600-30 mg ER Tab PO SCH (09:32)
[2018-03-18] MEDS: Potassium Chloride 20 mEq ER Tab PO SCH ×2 (09:32→13:39)
[2018-03-18] MEDS: Levothyroxine 100 MCG TAB PO SCH (09:32)
[2018-03-18] MEDS: Benzocaine/Menthol (Cepacol) Lozenge MT PRN (09:33)
[2018-03-18] MEDS: Cholecalciferol 1,000 INTLU TAB PO SCH (09:34)
--- NOTE | 2018-03-18 11:35 | PN ---
DATE: 03/18/2018 REASON FOR CONSULTATION: Cardiac evaluation, history of pacemaker, admitted with COPD. SUBJECTIVE: The patient denies any chest pain, shortness of breath or any palpitation. This noted is in addition to dictated by nurse practitioner, Patsy Varela. The patient is stable, complaining of some constipation and sore throat. Sore throat is improving on Cepacol lozenges. Extensive history of smoking. History of last catheterization on 06/01/2017 shows normal coronaries, major epicardial coronaries essentially normal. History of pacemaker secondary to sick sinus syndrome, status post recently pacemaker generator change 2 years ago. RECOMMENDATIONS: Continue aggressive treatment for COPD. We will add on lactulose. [facility] status is stable. Thank you Dr. Joe for providing us the opportunity in taking care of the patient, Cinthya Kimball. Jefferson Levine MD
[2018-03-18] MEDS ORDERED: guaiFENesin 200 mg/10 ml Syrup UD PO PRN (12:53)
[2018-03-18] MEDS ORDERED: Fluticasone Nasal 50 mcg/Spray NS SCH (13:00)
--- NOTE | 2018-03-18 14:19 | CP.PCM.DIS ---
<Dennis Weaver - Last Filed: 03/19/18 07:13> Provider - Provider Date of Admission: 03/15/18 15:05 Attending physician: Lesley Marcial DO Primary care physician: Jeffreson Solomon MD Consults: Cardiology: Dr. Solomon Time Spent in preparation of Discharge (in minutes): 45 Hospital Course - Lab Results Lab Results: Micro Results 03/15/18 15:40 Blood-Venous Blood Culture - Preliminary NO GROWTH AFTER 48 HOURS 03/15/18 15:19 Blood-Venous Blood Culture - Preliminary NO GROWTH AFTER 48 HOURS Most Recent Lab Values WBC 11.7 10^3/uL (4.5-11.0) H D 03/18/18 05:45 RBC 4.44 10^6/uL (3.5-6.1) 03/18/18 05:45 Hgb 13.8 g/dL (12.0-16.0) 03/18/18 05:45 Hct 41.1 % (36.0-48.0) 03/18/18 05:45 MCV 92.6 fl (80.0-105.0) 03/18/18 05:45 MCH 31.1 pg (25.0-35.0) 03/18/18 05:45 MCHC 33.6 g/dl (31.0-37.0) 03/18/18 05:45 RDW 13.6 % (11.5-14.5) 03/18/18 05:45 Plt Count 249 10^3/uL (120.0-450.0) 03/18/18 05:45 MPV 10.6 fl (7.0-11.0) 03/18/18 05:45 Gran % 71.6 % (50.0-68.0) H 03/18/18 05:45 Lymph % (Auto) 20.1 % (22.0-35.0) L 03/18/18 05:45 Dodge % (Auto) 8.3 % (1.0-6.0) H 03/18/18 05:45 Eos % (Auto) 0.0 % (1.5-5.0) L 03/18/18 05:45 Baso % (Auto) 0.0 % (0.0-3.0) 03/18/18 05:45 Gran # 8.36 (1.4-6.5) H 03/18/18 05:45 Lymph # (Auto) 2.4 (1.2-3.4) 03/18/18 05:45 Dodge # (Auto) 1.0 (0.1-0.6) H 03/18/18 05:45 Eos # (Auto) 0.0 (0.0-0.7) 03/18/18 05:45 Baso # (Auto) 0.00 K/mm3 (0.0-2.0) 03/18/18 05:45 PT 11.5 SECONDS (9.4-12.5) 03/15/18 13:35 INR 1.00 03/15/18 13:35 APTT 31.2 Seconds (25.1-36.5) 03/16/18 05:30 Sodium 133 mmol/L (132-148) 03/18/18 05:45 Potassium 4.0 mmol/L (3.6-5.0) 03/18/18 05:45 Chloride 93 mmol/L (98-107) L 03/18/18 05:45 Carbon Dioxide 32 mmol/L (21-33) 03/18/18 05:45 Anion Gap 12 (10-20) 03/18/18 05:45 BUN 59 mg/dL (7-21) H 03/18/18 05:45 Creatinine 1.3 mg/dl (0.7-1.2) H 03/18/18 05:45 Est GFR ( Amer) 48 03/18/18 05:45 Est GFR (Non-Af Amer) 40 03/18/18 05:45 Random Glucose 140 mg/dL (70-110) H 03/18/18 05:45 Hemoglobin A1c 6.5 % (4.2-6.5) 03/17/18 06:00 Calcium 10.3 mg/dL (8.4-10.5) 03/18/18 05:45 Phosphorus 3.8 mg/dL (2.5-4.5) 03/17/18 06:00 Magnesium 2.0 mg/dL (1.7-2.2) 03/17/18 06:00 Total Bilirubin 0.5 mg/dL (0.2-1.3) 03/18/18 05:45 AST 25 U/L (14-36) 03/18/18 05:45 ALT 21 U/L (7-56) 03/18/18 05:45 Alkaline Phosphatase 85 U/L (38-126) 03/18/18 05:45 Troponin I < 0.01 ng/mL 03/16/18 01:05 NT-Pro-B Natriuret Pep 102 pg/mL (0-450) 03/15/18 13:35 Total Protein 7.4 g/dL (5.8-8.3) 03/18/18 05:45 Albumin 4.1 g/dL (3.0-4.8) 03/18/18 05:45 Globulin 3.3 gm/dL 03/18/18 05:45 Albumin/Globulin Ratio 1.2 (1.1-1.8) 03/18/18 05:45 Triglycerides 103 mg/dL (35-160) 03/17/18 06:00 Cholesterol 170 mg/dL (130-200) 03/17/18 06:00 LDL Cholesterol Direct 95 mg/dL (0-129) 03/17/18 06:00 HDL Cholesterol 53 mg/dL (29-60) 03/17/18 06:00 TSH 3rd Generation 0.86 mIU/mL (0.46-4.68) 03/17/18 06:00 Influenza Typ A,B (EIA) Negative for flu a/b (NEGATIVE) 03/15/18 15:19 - Hospital Course Hospital Course: PGY1 Discharge Summary and Hospital Course for Dr. Kale Marcial History of Present Illness Patient is a 77-year-old Female with past medical history of COPD (60 pack year history of smoking), bradycardia status-post pacemaker, diastolic Congestive Heart Failure with estimated EF of 62.5% based on 06/11/17 cardiac catheterization, atrial fibrillation, GERD, anxiety, and depression who presented on 03/15 to the [facility] ED with a chief complaint of worsening shortness of breath and generalized weakness for a week as well as productive cough with white phlegm. Of note, patient has multiple admissions history for COPD exacerbation in the past. Was given steroids and nebulizers at home but is noncompliant with respiratory therapy. Patient is on home oxygen (2L). Patient received solumedrol 60mg IV in the ED. Please see Patient's chart for more detailed summary. Patient was subsequently admitted to telemetry for COPD exacerbation. Patient was treated with duonebs, pulmicort, and solumedrol 40mg IV daily. On day 3, duonebs was discontinued due to patient complaint of "shakiness." Patient was started on Atrovan, mucinex for cough, and cepacol. Prednisone was switched to PO. Please see patient's chart for details. Patient also has history of CHF and presented with chest pain. Serial troponins were obtained and were negative. Patient was treated with ASA, lasix 40mg PO BID and metoprolol. EKG was obtained and was paced at 79bpm. Cardiology was consulted and recommended continued aggressive treatment for COPD, and the addition of lactulose. Per Cardiology, patient's CVS status is stable. Patient also complained of chronic lower extremity pain. Thus, lower extremity ultrasound was obtained 03/16 and was negative for DVT bilaterally. Physical Therapy recommended TCU for rehabilitation. Patient was medically optimized, and was subsequently transferred to TCU 03/18/18. Please see patient's chart for details. While in TCU: Please continue all consultations as ordered. Please continue all medications as currently ordered. Please obtain CBC's and BMP's every other day. Please complete the Medrol Dose Pack as ordered. Instructions for patient: - Please continue your home medications as prescribed. - Follow up with your PCP in 3-5 days of discharge. - Please continue to use Home O2 as needed, and follow-up with [facility] within 3-5 days of discharge. - Should your symptoms return, please go to the Emergency Department. Patient seen and case discussed in detail with Dr. Kale Weaver PGY1 Discharge Exam - Additional Findings Additional findings: - Constitutional Appears: Non-toxic - Head Exam Head Exam: ATRAUMATIC, NORMAL INSPECTION, NORMOCEPHALIC - Eye Exam Eye Exam: EOMI, Normal appearance Pupil Exam: NORMAL ACCOMODATION, PERRL - ENT Exam ENT Exam: Mucous Membranes Moist, Normal Exam - Neck Exam Neck exam: Positive for: Full Rom, Normal Inspection - Respiratory Exam Respiratory Exam: Chest Wall Tenderness, Wheezes (mild ), NORMAL BREATHING PATTERN, persistent nonproductive cough with congestion appreciated throughout exam absent: Accessory Muscle Use, Rales, Rhonchi, Stridor - Cardiovascular Exam Cardiovascular Exam: REGULAR RHYTHM, +S1, +S2 - GI/Abdominal Exam GI & Abdominal Exam: Normal Bowel Sounds, Soft. absent: Distended, Firm, Guarding, Rebound, Rigid, Tenderness - Extremities Exam Extremities exam: Positive for: calf tenderness, normal capillary refill, pedal edema, pedal pulses present - Back Exam Back exam: NORMAL INSPECTION - Neurological Exam Neurological exam: Alert, Oriented x3 - Psychiatric Exam Psychiatric exam: Normal Affect, Normal Mood - Skin Skin Exam: Dry, Intact, Normal Color, Warm Discharge Plan - Follow Up Plan Condition: STABLE Disposition: TRANSF TO SNF Instructions: Heart Failure (DC), Heart Failure (GEN), Chest Pain (DC), Chest Pain (GEN), Pacemaker (DC), Pacemaker (GEN), Pulmonary Edema (DC), Pulmonary Edema (GEN), Ascites (DC), Ascites (GEN) Additional Instructions: While in TCU: Please continue all consultations as ordered. Please continue all medications as currently ordered. Please obtain CBC's and BMP's every other day. Please complete the Medrol Dose Pack as ordered. Instructions for patient: - Please continue your home medications as prescribed. - Follow up with your primary care doctors within 3-5 days of discharge. - Please continue to use Home O2 as needed, and follow-up with [facility] within 3-5 days of discharge. - Should your symptoms return, please go to the Emergency Department. Referrals: Jefferson Solomon MD [Primary Care Provider] - <Lesley Marcial - Last Filed: 03/19/18 12:53> Provider - Provider Date of Admission: 03/15/18 15:05 Attending physician: Lesley Marcial DO Primary care physician: Jefferson Solomon MD Hospital Course - Lab Results Lab Results: Micro Results 03/15/18 15:40 Blood-Venous Blood Culture - Preliminary NO GROWTH AFTER 3 DAYS 03/15/18 15:19 Blood-Venous Blood Culture - Preliminary NO GROWTH AFTER 3 DAYS Most Recent Lab Values WBC 11.7 10^3/uL (4.5-11.0) H D 03/18/18 05:45 RBC 4.44 10^6/uL (3.5-6.1) 03/18/18 05:45 Hgb 13.8 g/dL (12.0-16.0) 03/18/18 05:45 Hct 41.1 % (36.0-48.0) 03/18/18 05:45 MCV 92.6 fl (80.0-105.0) 03/18/18 05:45 MCH 31.1 pg (25.0-35.0) 03/18/18 05:45 MCHC 33.6 g/dl (31.0-37.0) 03/18/18 05:45 RDW 13.6 % (11.5-14.5) 03/18/18 05:45 Plt Count 249 10^3/uL (120.0-450.0) 03/18/18 05:45 MPV 10.6 fl (7.0-11.0) 03/18/18 05:45 Gran % 71.6 % (50.0-68.0) H 03/18/18 05:45 Lymph % (Auto) 20.1 % (22.0-35.0) L 03/18/18 05:45 Dodge % (Auto) 8.3 % (1.0-6.0) H 03/18/18 05:45 Eos % (Auto) 0.0 % (1.5-5.0) L 03/18/18 05:45 Baso % (Auto) 0.0 % (0.0-3.0) 03/18/18 05:45 Gran # 8.36 (1.4-6.5) H 03/18/18 05:45 Lymph # (Auto) 2.4 (1.2-3.4) 03/18/18 05:45 Dodge # (Auto) 1.0 (0.1-0.6) H 03/18/18 05:45 Eos # (Auto) 0.0 (0.0-0.7) 03/18/18 05:45 Baso # (Auto) 0.00 K/mm3 (0.0-2.0) 03/18/18 05:45 PT 11.5 SECONDS (9.4-12.5) 03/15/18 13:35 INR 1.00 03/15/18 13:35 APTT 31.2 Seconds (25.1-36.5) 03/16/18 05:30 Sodium 133 mmol/L (132-148) 03/18/18 05:45 Potassium 4.0 mmol/L (3.6-5.0) 03/18/18 05:45 Chloride 93 mmol/L (98-107) L 03/18/18 05:45 Carbon Dioxide 32 mmol/L (21-33) 03/18/18 05:45 Anion Gap 12 (10-20) 03/18/18 05:45 BUN 59 mg/dL (7-21) H 03/18/18 05:45 Creatinine 1.3 mg/dl (0.7-1.2) H 03/18/18 05:45 Est GFR ( Amer) 48 03/18/18 05:45 Est GFR (Non-Af Amer) 40 03/18/18 05:45 Random Glucose 140 mg/dL (70-110) H 03/18/18 05:45 Hemoglobin A1c 6.5 % (4.2-6.5) 03/17/18 06:00 Calcium 10.3 mg/dL (8.4-10.5) 03/18/18 05:45 Phosphorus 3.8 mg/dL (2.5-4.5) 03/17/18 06:00 Magnesium 2.0 mg/dL (1.7-2.2) 03/17/18 06:00 Total Bilirubin 0.5 mg/dL (0.2-1.3) 03/18/18 05:45 AST 25 U/L (14-36) 03/18/18 05:45 ALT 21 U/L (7-56) 03/18/18 05:45 Alkaline Phosphatase 85 U/L (38-126) 03/18/18 05:45 Troponin I < 0.01 ng/mL 03/16/18 01:05 NT-Pro-B Natriuret Pep 102 pg/mL (0-450) 03/15/18 13:35 Total Protein 7.4 g/dL (5.8-8.3) 03/18/18 05:45 Albumin 4.1 g/dL (3.0-4.8) 03/18/18 05:45 Globulin 3.3 gm/dL 03/18/18 05:45 Albumin/Globulin Ratio 1.2 (1.1-1.8) 03/18/18 05:45 Triglycerides 103 mg/dL (35-160) 03/17/18 06:00 Cholesterol 170 mg/dL (130-200) 03/17/18 06:00 LDL Cholesterol Direct 95 mg/dL (0-129) 03/17/18 06:00 HDL Cholesterol 53 mg/dL (29-60) 03/17/18 06:00 TSH 3rd Generation 0.86 mIU/mL (0.46-4.68) 03/17/18 06:00 Influenza Typ A,B (EIA) Negative for flu a/b (NEGATIVE) 03/15/18 15:19 Attending/Attestation - Attestation I have personally seen and examined this patient.: Yes I have fully participated in the care of the patient.: Yes I have reviewed all pertinent clinical information, including history, physical exam and plan: Yes Notes (Text): Please note this d/c summary is for 03/18/18. Patient seen and examined by me with resident 10:15AM on 03/18/18. Case including discharge plan discussed with resident. Agree with above with following additions/corrections. Patient is a 77-year-old female past medical history significant for COPD, bradycardia status post pacemaker, diastolic CHF, atrial fibrillation, and depression that presented to emergency room with worsening shortness of breath and generalized weakness. Please see H&P for full details. Patient was admitted with acute on chronic hypoxic respiratory failure secondary to COPD exacerbation, chest pain, diastolic CHF, history of chronic hypokalemia, GERD, hypothyroidism, and vitamin D deficiency. Patient was started on Solu- Medrol, nebulizer treatments, Brovana, and Pulmicort. Chest xray per radiologist showed mild vascular pulmonary congestion. Cardiology was consulted. Cardiac Catheterization in May 2017 showed normal coronaries. Per cardiology, no evidence of acute NE. Patient was continued on aspirin and Lopressor. Patient continued on Lasix and Aldactone for history of diastolic CHF and lower extremity edema. Patient also placed on doxycycline. Bilateral lower extremity venous Dopplers are negative for DVT. Patient was also found have a DEENA likely secondary to Lasix. Lasix dose was decreased per cardiology. She was on Mucinex for cough. Patient was switched to Robitussin and Cepacol for cough and sore throat. Patient was maintained on Xanax at bedtime for history of anxiety. Patient was continued on Synthroid for hypothyroidism and vitamin D for history of vitamin D deficiency. Solu-Medrol was tapered to oral prednisone. Patient was feeling better. Patient was seen by physical therapy who recommended TCU. She was cleared for discharge by cardiology. Patient was discharged to TCU. On day of discharge, patient stated she was feeling better. Still with a cough. Patient states her cough makes her have a sore throat. Patient states sheorntess of breath is much improved and O2 via nasal cannula helps. No abdominal pain. No nausea or vomiting. No chest pain or palpitations. No fevers or chills. No bowel movment. No dysuria. No headaches or dizziness. Physical exam: General: Awake and lying in bed in no acute distress HEENT: Normocephalic, atraumatic. Extraocular muscles intact, pupils equal and reactive, no scleral icterus. Oropharynx is pink and moist. Neck is supple. Cardiovascular: Regular rhythm. Normal S1 and S2. No rubs or gallops appreciated Pulmonary: Normal respiratory effort. Decreased breath sounds. No rhonchi, rales, or wheezing appreciated. Gastrointestinal: Soft, nondistended. Nontender. Positive bowel sounds all 4 quadrants. Musculoskeletal: Moves all extremities. No calf tenderness. No CVA tenderness. Bilateral lower extremity edema. Central nervous system: AAO x3, CN 2-12 grossly intact. Dermatologic: Skin warm and dry. Please see chart for full details. Time spent in discharging the patient including chart review, medication reconciliation, discussion with the patient, medical records specialist, consultants, accepting hospital, and nursing staff was 40 minutes.
== END 2018-03-18 15:50 | DRG 190 ==
LOC: ED 12:37 → ERH 15:05 → 3RSO 18:26
PROVIDERS: ADMIT Hospitalist; ATTEND Hospitalist
DX: J44.1 Chronic obstructive pulmonary disease with (acute) exacerbation (principal); J96.21 Acute and chronic respiratory failure with hypoxia; I50.32 Chronic diastolic (congestive) heart failure; N17.9 Acute kidney failure, unspecified; Z95.0 Presence of cardiac pacemaker; I11.0 Hypertensive heart disease with heart failure; Z87.891 Personal history of nicotine dependence; I48.91 Unspecified atrial fibrillation; F41.9 Anxiety disorder, unspecified; R53.1 Weakness; I73.9 Peripheral vascular disease, unspecified; E03.9 Hypothyroidism, unspecified; M94.0 Chondrocostal junction syndrome [Tietze]; K21.9 Gastro-esophageal reflux disease without esophagitis; Z91.19 Patient's noncompliance with other medical treatment and regimen; E11.51 Type 2 diabetes mellitus with diabetic peripheral angiopathy without gangrene; E78.5 Hyperlipidemia, unspecified; F32.89 Other specified depressive episodes; H91.90 Unspecified hearing loss, unspecified ear; I08.3 Combined rheumatic disorders of mitral, aortic and tricuspid valves; I25.10 Atherosclerotic heart disease of native coronary artery without angina pectoris; I27.20 Pulmonary hypertension, unspecified; K59.00 Constipation, unspecified; T50.1X5A Adverse effect of loop [high-ceiling] diuretics, initial encounter; Z79.82 Long term (current) use of aspirin; Z86.010 Personal history of colon polyps; Z87.01 Personal history of pneumonia (recurrent); Z99.81 Dependence on supplemental oxygen; E55.9 Vitamin D deficiency, unspecified; Z88.1 Allergy status to other antibiotic agents; Z88.8 Allergy status to other drugs, medicaments and biological substances; E87.6 Hypokalemia

== ENCOUNTER 2018-03-18 15:50 | Inpatient (IN) | payer OTHER ==
[2018-03-18] MEDS ORDERED: Benzocaine/Menthol (Cepacol) Lozenge MT PRN (16:10)
[2018-03-18] MEDS ORDERED: Ipratropium 0.02% Inhal Soln (0.5 mg/2.5 ml) UD IH PRN (16:10)
[2018-03-18] MEDS: Potassium Chloride 20 mEq ER Tab PO SCH (17:40)
[2018-03-18] MEDS ORDERED: Influenza Vaccine 60 mcg/0.5 mL SYR (4YR UP) IM ONE (19:04)
[2018-03-18] MEDS ORDERED: Pneumococcal 23-Valent Vaccine IM ONE (19:04)
[2018-03-18 19:14] VITALS: BMI 34.7
[2018-03-18] MEDS: Budesonide 0.5 mg/2 ml Inhal Susp UD IH SCH (20:50)
[2018-03-18] MEDS: guaiFENesin 200 mg/10 ml Syrup UD PO PRN (21:39)
[2018-03-19] MEDS: Pantoprazole 40 mg EC Tab PO SCH (05:48)
[2018-03-19] MEDS: Levothyroxine 100 MCG TAB PO SCH (05:48)
[2018-03-19] MEDS: guaiFENesin 200 mg/10 ml Syrup UD PO PRN ×2 (05:58→09:52)
[2018-03-19] MEDS: Budesonide 0.5 mg/2 ml Inhal Susp UD IH SCH ×2 (07:22→21:00)
[2018-03-19] MEDS: Fluticasone Nasal 50 mcg/Spray NS SCH (09:42)
[2018-03-19] MEDS: Potassium Chloride 20 mEq ER Tab PO SCH ×3 (09:43→17:16)
[2018-03-19] MEDS: Cholecalciferol 1,000 INTLU TAB PO SCH (09:44)
[2018-03-19] MEDS ORDERED: Bisacodyl 5mg EC Tab PO SCH (11:00)
[2018-03-19] MEDS: Arformoterol 15 mcg/2 ml Inh Sol IH SCH (11:42)
--- NOTE | 2018-03-19 12:10 | CP.PCM.HP ---
<Dennis Weaver - Last Filed: 03/19/18 11:59> History of Present Illness - History of Present Illness History of Present Illness: PGY1 History and Physical Exam Note for Dr. Marcial History of Present Illness Patient is a 77-year-old Female with past medical history of COPD (60 pack year history of smoking), bradycardia status-post pacemaker, diastolic Congestive Heart Failure with estimated EF of 62.5% based on 06/11/17 cardiac catheterization, atrial fibrillation, GERD, anxiety, and depression who presented on 03/15 to the [facility] ED with a chief complaint of worsening shortness of breath and generalized weakness for a week as well as productive cough with white phlegm. Of note, patient has multiple admissions history for COPD exacerbation in the past. Was given steroids and nebulizers at home but is noncompliant with respiratory therapy. Patient is on home oxygen (2L). Patient received solumedrol 60mg IV in the ED. Please see Patient's chart for more detailed summary. Patient was subsequently admitted to telemetry for COPD exacerbation. Patient wa s treated with duonebs, pulmicort, and solumedrol 40mg IV daily. On day 3, duonebs was discontinued due to patient complaint of "shakiness." Patient was started on Atrovan, mucinex for cough, and cepacol. Prednisone was switched to PO. Please see patient's chart for details. Patient also has history of CHF and presented with chest pain. Serial troponins were obtained and were negative. Patient was treated with ASA, lasix 40mg PO BID and metoprolol. EKG was obtained and was paced at 79bpm. Cardiology was consulted and recommended continued aggressive treatment for COPD, and the addition of lactulose. Per Cardiology, patient's CVS status is stable. Patient also complained of chronic lower extremity pain. Thus, lower extremity ultrasound was obtained 03/16 and was negative for DVT bilaterally. Physical Therapy recommended TCU for rehabiliaation. Patient was medically optimized, and was subsequently transferred to TCU 03/18/18. Please see patient's chart for details. Today, patient was seen and evaluated at bedside. Patient had no complaints overnight. Patient states her cough improved. Patient reports constipation. 12 point ROS otherwise unremarkable. Present on Admission - Present on Admission Any Indicators Present on Admission: No History of DVT/PE: No History of Uncontrolled Diabetes: No Urinary Catheter: No Decubitus Ulcer Present: No History Surgical Site Infection Following: None Review of Systems - Review of Systems All systems: reviewed and no additional remarkable complaints except - Constitutional Constitutional: As Per HPI Past Patient History - Infectious Disease Hx of Infectious Diseases: None - Tetanus Immunizations Tetanus Immunization: Unknown - Past Medical History & Family History Past Medical History?: Yes - Past Social History Smoking Status: Former Smoker - CARDIAC Hx Cardiac Disorders: Yes (Pacemaker, Afib) Hx Congestive Heart Failure: Yes - PULMONARY Hx Chronic Obstructive Pulmonary Disease (COPD): Yes - NEUROLOGICAL Hx Neurological Disorder: Yes - HEENT Hx HEENT Problems: Yes Hx Deafness: Yes - RENAL Hx Chronic Kidney Disease: No - ENDOCRINE/METABOLIC Hx Hypothyroidism: Yes - HEMATOLOGICAL/ONCOLOGICAL Hx Blood Disorders: No - INTEGUMENTARY Hx Dermatological Problems: Yes (skin tags) Other/Comment: 11-14-17 BILATERAL LE CELLULITIS-REDDENED,ERYTHEMA.DRY SKIN,EDEMA +2.TOP OF FEET +2 PITTING EDEMA. - MUSCULOSKELETAL/RHEUMATOLOGICAL Hx Falls: Yes (past) - GASTROINTESTINAL Hx Gastrointestinal Disorders: (reflux/pancreatitis/colon polyps) - GENITOURINARY/GYNECOLOGICAL Hx Reproductive Disorders: No - PSYCHIATRIC Hx Psychophysiologic Disorder: Yes Hx Anxiety: Yes Hx Depression: Yes Hx Substance Use: No - SURGICAL HISTORY Hx Cardiac Catheterization: Yes Hx Orthopedic Surgery: Yes (Right knee surgery) Other/Comment: carpal tunnel right hand. pacemaker - ANESTHESIA Hx Anesthesia: Yes Hx Anesthesia Reactions: No Hx Malignant Hyperthermia: No Meds Allergies/Adverse Reactions: Allergies Allergy/AdvReac Type Severity Reaction Status Date / Time levofloxacin [From Levaquin] Allergy Severe ANAPHYLAXIS Verified 11/14/17 14:27 Physical Exam - Additional Findings Additional findings: - Constitutional Appears: Non-toxic - Head Exam Head Exam: ATRAUMATIC, NORMAL INSPECTION, NORMOCEPHALIC - Eye Exam Eye Exam: EOMI, Normal appearance Pupil Exam: NORMAL ACCOMODATION, PERRL - ENT Exam ENT Exam: Mucous Membranes Moist, Normal Exam - Neck Exam Neck exam: Positive for: Full Rom, Normal Inspection - Respiratory Exam Respiratory Exam: Chest Wall Tenderness, Wheezes (mild ), NORMAL BREATHING PATTERN absent: Accessory Muscle Use, Rales, Rhonchi, Stridor - Cardiovascular Exam Cardiovascular Exam: REGULAR RHYTHM, +S1, +S2 - GI/Abdominal Exam GI & Abdominal Exam: Normal Bowel Sounds, Soft. absent: Distended, Firm, Guarding, Rebound, Rigid, Tenderness - Extremities Exam Extremities exam: Positive for: calf tenderness, normal capillary refill, pedal edema, pedal pulses present - Back Exam Back exam: NORMAL INSPECTION - Neurological Exam Neurological exam: Alert, Oriented x3 - Psychiatric Exam Psychiatric exam: Normal Affect, Normal Mood - Skin Skin Exam: Dry, Intact, Normal Color, Warm Results - Vital Signs Recent Vital Signs: Last Vital Signs Temp 97.8 F 03/18/18 18:43 Pulse 90 03/19/18 08:31 Resp 20 03/18/18 18:43 BP 110/70 03/19/18 09:43 Pulse Ox Assessment & Plan - Assessment and Plan (Free Text) Assessment: PMHx of COPD (60 pack year history of smoking), bradycardia s/p pacemaker, diastolic CHF with estimated EF of 62.5% based on 06/11/17 cardiac catheterization, atrial fibrillation, GERD, anxiety, and depression presenting to ED with worsening shortness of breath, generalized weakness, and cough. Pat ient was medically optimized and discharged 03/18. Patient is currently in TCU for rehabilitation. Plan: Acute/Chronic hypoxic respiratory failure secondary to COPD exacerbation - Received solumedrol 60 mg IV in ED - Patient had tremors thus, Duonebs dsicontinued - Robitussin for cough - Continue Cepacol - Continue Atrovan - Pulmicort daily - Discontinue solumedrol 40 IV daily - Continue Prednisone taper History of Anxiety - Patient started on xanax 0.25mg PO HS - Given Stat: xanax 0.25mg PO Chest Pain, likely costochondritis - Recent cardiac cath (05/2017), estimated EF of 62.5% - Trop negative x3 - EKG: paced @ 79 bpm - Cardiology (Dr. Solomon) on board; recommendations appreciated - ASA 81 mg PO daily - Discontinue Telemetry Bilateral Lower Extremity Edema, with findings suspicious for cellulitis - 03/17: Start Doxycycline 100mg PO Q12 (x5 days total) - Lower extremity ultrasound obtained: negative for DVT bilaterally; see report for details. History of CHF - Lower extremity edema is chronic - Continue: Lasix 40 mg PO BID, metoprolol Chronic Hypokalemia - K 4.6 on admission - Monitor and replete prn GERD/dyspepsia/nausea - Zofran PRN Hypothryoidism - Synthroid 100 mcg PO daily Vitamin D deficiency - 1,000 IU daily Constipation - Start Dulcolax daily PPx, Diet, Disposition -DVT: heparin, scds -GI: protonix -Diet: HHD -PT/OT on board Patient seen and case discussed in detail with Dr. Kale Weaver PGY1 <Lesley Marcial R - Last Filed: 03/20/18 08:49> Results - Vital Signs Recent Vital Signs: Last Vital Signs Temp 98.6 F 03/20/18 06:00 Pulse 73 03/20/18 06:00 Resp 18 03/20/18 06:00 BP 98/61 L 03/20/18 08:28 Pulse Ox 96 03/20/18 06:00 Attending/Attestation - Attestation I have personally seen and examined this patient.: Yes I have fully participated in the care of the patient.: Yes I have reviewed all pertinent clinical information: Yes Notes (Text): Patient seen and examined by me with resident at 9:30AM on 03/19/18. Case including HPI, physical exam, and assessment and plan discussed with resident. Agree with above with following additions/corrections. Patient is a 77-year-old female past medical history significant for COPD, bradycardia status post pacemaker, diastolic CHF, atrial fibrillation, HTN, hypothyroidism, hypercholesterolemia, chronic hypokalemia, and anxiety that presented to emergency room with worsening shortness of breath and generalized weakness. Please see H&P for full details. Patient was initially admitted on 03/15/18 with acute on chronic hypoxic respiratory failure secondary to COPD exacerbation, chest pain, diastolic CHF, history of chronic hypokalemia, GERD, hypothyroidism, and vitamin D deficiency. Patient was treated with Solu-Medrol, nebulizer treatments, Brovana, and Pulmicort. Patient was also seen by cardiology for chest pain. Per cardiology, there was no evidence of acute AK. Patient was continued on aspirin and Lopressor, Lasix, and Aldactone. Patient was also continued on doxycycline for possible LE cellulitis. Bilateral lower extremity venous Dopplers were negative for DVT. Patient was also found have a DEENA likely secondary to Lasix. Lasix dose was decreased per cardiology. Patient was seen by physical therapy who recommended TCU. Patient was discharged to TCU. Today patient states she is feeling better. Cough and sore throat have improved. Patient is denying any shortness of breath. Sutent is ambulating with physical therapy. She denies abdominal pain. No nausea or vomiting. No chest pain or palpitations. No fevers or chills. No dysuria. No headaches or dizziness. Patient states she still has not had a bowel movement. She states she normally takes dulcolax at home for constipation which works. She does not have associated abdominal pain. 12 Point review of systems reviewed by me. Please see above HPI, all other systems are negative. PMHx: COPD, Chronic respiratory failure on home O2, bradycardia status post pacemaker, diastolic CHF, atrial fibrillation, HTN, Hypothyroidism, chronic hypokalemia, anxiety, Hypercholesterolemia. Past surgical History: pacemaker insertion, Right knee surgery Allergies: Levofloxacin Home Medications: reviewed Family History: Reviewed and noncontributatory Social History: Patient has 60 pack year history of smoking. No alcohol or illicit drug use. Physical exam: General: Awake and alert sitting up in chair in no acute distress HEENT: Normocephalic, atraumatic. Extraocular muscles intact, pupils equal and reactive, no scleral icterus. Oropharynx is pink and moist. Neck is supple. Cardiovascular: Regular rhythm. Normal S1 and S2. No rubs or gallops appreciated Pulmonary: Normal respiratory effort. No rhonchi, rales, or wheezing appreciated. Gastrointestinal: Soft, nondistended. Nontender. Positive bowel sounds all 4 quadrants. Musculoskeletal: Moves all extremities. No calf tenderness. No CVA tenderness. Bilateral lower extremity edema. Central nervous system: AAO x3, CN 2-12 grossly intact. Dermatologic: Skin warm and dry. Assessment and plan: Patient is a 77-year-old female past medical history significant for COPD, bradycardia status post pacemaker, diastolic CHF, atrial fibrillation, HTN, hypothyroidism, hypercholesterolemia, chronic hypokalemia, and anxiety that presented to emergency room 03/15/18 with worsening shortness of breath and generalized weakness. Patient was treated and transferred to TCU for gait instability and generalized weakness. 1. Gait instability. Generalized Weakness. Continue PT/OT as tolerated. Continue supportive care. 2. Chronic respiratory failure. Patient is on home oxygen. S/P acute COPD exacerbation. Continue prednisone taper. Continue Brovana and Pulmicort. Continue Atrovent as needed. Continue O2 via nasal cannula as needed. 3. Cough and sore thoart. Improving. Continue Cepacol as needed. Continue robitussin as needed. 4. Chest pain. Non cardiac in origin. Resolved. 5. Diastolic CHF. Chronic. Compensated. Continue with lasix 40mg PO BID. Continue Lopressor and Aldactone. 6. Bilateral lower extremity edema. ?cellulitis. Continue lasix. Lower extremity venous dopplers negative for DVT. Continue doxycycline. 7. Hypertension. Continue metoprolol 8. Hypothyroidism. Continue synthroid 9. Vitamin D Deficiency. Continue home vitamin D. 10. Anxiety. Continue xanax at bedtime 11. Constipation. Continue Colace. Started on oral dulcolax as needed. 12. Chronic hypokalemia. Continue Potassium 13. Hypercholesterolemia. Continue Lipitor 14. GI prophylaxis. Continue Protonix. Case discussed in detail with patient regarding current diagnosis and treatment plan. All quesitons answered.
[2018-03-19] MEDS: Bisacodyl 5mg EC Tab PO PRN (17:16)
--- NOTE | 2018-03-19 21:53 | CON ---
DATE OF CONSULTATION: 03/19/2018 REASON FOR CONSULTATION: Continuity of care in transitional care unit, history of nonobstructive coronary artery disease; history of sick sinus syndrome, status post pacemaker; history of COPD; and diabetes. BRIEF CLINICAL HISTORY: This is a 77-year-old female with a past medical history significant for active tobacco abuse, nonobstructive coronary artery disease, sick sinus syndrome, status post pacemaker recently, status post pacemaker generator change, admitted to acute medical floor in [facility] last week with complaints of generalized headache, chest pain, weakness, and wheezing, possibly secondary to acute exacerbation of COPD and deconditioning of the body. Now, the patient is transferred to transitional care unit for continuity of care and rehab. PAST MEDICAL HISTORY: Significant for COPD, CHF, atrial fibrillation, anxiety disorder, depression, hypertension, history of permanent pacemaker, history of CHF secondary to diastolic dysfunction. PAST SURGICAL HISTORY: Significant for pacemaker, status post recently 2 years ago generator change; history of right knee surgery; history of cardiac catheterization. Previous cardiac workup as follows: The patient had a stress test 05/30/2017 that showed ischemia. The patient underwent cardiac catheterization 06/11/2017 that showed a normal LV contractility, ejection fraction 68%, normal coronaries, EDP was in the range of 25 to 30. At that time, also the patient underwent right heart catheterization that revealed RA 15, RV 44/15, PA 40/25, mean PA 32, pulmonary capillary wedge pressure 24 mmHg. The patient's left heart catheterization revealed essentially normal coronaries. The patient also had echo on 06/09/2017 that showed normal LV systolic function, ejection fraction 55%, [id number] aortic regurgitation, [id number] mitral regurgitation, mild tricuspid regurgitation, RV systolic pressure 35. SOCIAL HISTORY: The patient stopped smoking 3-4 years ago, used to smoke a pack a day for 13-bsrn-gorh smoking. Denies any history of alcohol abuse. Denies any history of substance abuse. Lives with daughter. ALLERGIES: THE PATIENT IS ALLERGIC TO LEVAQUIN; ALLERGIC TO LIPITOR, SAYS INTOLERANCE AND ACCORDING TO THE DAUGHTER, SHE GETS RASH AND FEELS ITCHY ALL OVER THE BODY. ALLERGY TO LEVAQUIN, GETS ANAPHYLACTIC AND POSSIBLY THAT IS THE ONLY ALLERGY TO LEVAQUIN, ANAPHYLACTIC REACTION. CURRENT MEDICATIONS: The patient at home, before coming to the hospital, was taking Spiriva 2.5 inhalation daily, spironolactone 25 p.o. b.i.d., potassium chloride 20 mEq 3 times a day, metoprolol 25 p.o. daily, levothyroxine Synthroid 100 mcg daily, Advair 500/50 one inhalation in the morning and one at night, Nexium 20 mg daily, vitamin D3 1000 units daily, atorvastatin 10 mg daily, and baby aspirin 81 mg daily. PHYSICAL EXAMINATION: VITAL SIGNS: Height of the patient is 5 feet 2 inches; weight of the patient 190 pounds; body mass index 35 kg/m2. Rest of the vitals, temperature afebrile, heart rate 90, blood pressure 110/70. HEENT: PERRLA. Extraocular muscles are intact. NECK: Supple. No carotid bruits or thyromegaly. CHEST: Clear to auscultation. HEART: S1, S2 regular. ABDOMEN: Soft. EXTREMITIES: Clubbing and cyanosis negative. LABORATORY DATA: Last blood workup in 3[facility] as follows; WBC 11.7, hemoglobin 13.8, hematocrit 41.1, and platelet count 249 as of 03/18/2018. Last chemistry as of 03/18/2018, sodium 133, potassium 4, chloride 93, carbon dioxide 32, anion gap of 12, BUN 59, creatinine 1.3. Random glucose 140. TSH 0.86 on 03/17/2018. Hemoglobin A1c of 6.5 as of 03/17/2018. Lipid profile on 03/17/2018 shows triglycerides 103, cholesterol 170, LDL 95, HDL 53. EKG on admission 03/15/2018 shows underlying normal sinus, A sensed V-paced rhythm, rate of 79. IMPRESSION: A 77-year-old female with past medical history significant for chronic obstructive pulmonary disease, ex-smoker with 18-[id number]-eowv smoking, hypertension, diabetes, hyperlipidemia, history of cardiac catheterization in the beginning of year, 05/2017, with normal coronaries, preserved left ventricular function, [id number] mitral regurgitation, [id number] tricuspid regurgitation, mild pulmonary hypertension, admitted with acute exacerbation of chronic obstructive pulmonary disease. So far troponin remains negative. Now, the patient is treated aggressively in 3[facility], 322. Now, the patient is in transitional care for the continuity of care. RECOMMENDATIONS: Continue current treatment. The patient has a known history of hypokalemia and high doses of potassium supplement. We will resume back and check the SMA-7 in the morning. Further recommendations of the hospital course, we will continue aggressive rehab. Thank you Dr. Joe for providing us the opportunity in taking care of the patient, Cinthya Kimball. We will follow with you. Jefferson Levine MD
[2018-03-20] MEDS: Levothyroxine 100 MCG TAB PO SCH (05:48)
[2018-03-20] MEDS: Pantoprazole 40 mg EC Tab PO SCH (05:49)
[2018-03-20] MEDS: Budesonide 0.5 mg/2 ml Inhal Susp UD IH SCH ×2 (07:45→19:48)
[2018-03-20] MEDS: Arformoterol 15 mcg/2 ml Inh Sol IH SCH (07:48)
[2018-03-20] MEDS: Bisacodyl 5mg EC Tab PO PRN (08:30)
[2018-03-20] MEDS: Potassium Chloride 20 mEq ER Tab PO SCH ×3 (09:52→17:12)
[2018-03-20] MEDS: Fluticasone Nasal 50 mcg/Spray NS SCH (09:52)
[2018-03-20] MEDS: Cholecalciferol 1,000 INTLU TAB PO SCH (09:53)
[2018-03-20] MEDS: guaiFENesin 200 mg/10 ml Syrup UD PO PRN ×2 (09:53→17:15)
--- NOTE | 2018-03-20 14:17 | PN ---
DATE: 03/20/2018 SEX OF THE PATIENT: Female. AGE OF THE PATIENT: 77. REASON FOR CONSULTATION: Continuity of care in Transitional Care Unit, history of nonobstructive coronary artery disease; sick sinus syndrome, status post pacemaker; COPD; diabetes. SUBJECTIVE: The patient denies any chest pain, shortness of breath, any palpitation. PHYSICAL EXAMINATION GENERAL: Not in apparent distress. VITAL SIGNS: Temperature afebrile, heart rate 73, blood pressure 104/69. HEENT: PERRLA. Extraocular muscles intact. NECK: Supple. No carotid bruits or thyromegaly. CHEST: Clear to auscultation. HEART: S1 and S2 regular. ABDOMEN: Soft. EXTREMITIES: Clubbing and cyanosis negative. LABORATORY DATA: Blood workup as follows, WBC on acute medical floor 03/18/2018 of 11.7, hemoglobin 13.8, hematocrit 41.1, platelet count 249,000. Chemistry, sodium 59, creatinine 1.3 as of 03/18/2018. IMPRESSION: A 77-year-old female with past medical history significant for chronic obstructive pulmonary disease, excessive smoker [id number]-bgim smoker, diabetes, hypertension, hyperlipidemia, history of chronic catheterization on 05/2017 after having abnormal stress test which shows normal coronaries, history of pacemaker, history of degenerative change. RECOMMENDATION: Continue rehab, physical therapy, continue spironolactone, continue ipratropium, Atrovent, Cepacol lozenges for sore throat, patient getting antibiotics for possible bronchitis, continue DVT prophylaxis, continue gentle diuretics. feels better, possible discharge planning in a couple of days. Thank you Dr. Marcial for providing us the opportunity in taking care of Cinthya Kimball. We will repeat blood workup upon Friday. Jefferson Levine MD
[2018-03-21] MEDS: Levothyroxine 100 MCG TAB PO SCH (05:23)
[2018-03-21] MEDS: Pantoprazole 40 mg EC Tab PO SCH (05:23)
[2018-03-21 07:04] LABS: BASO # 0.01 K/mm3 (0.0-2.0); BASO % 0.1 % (0.0-3.0); EOS % 0.2 % (1.5-5.0); GRAN # 8.47 (1.4-6.5); GRAN % 67.3 % (50.0-68.0); HEMOGLOBIN 14.8 g/dL (12.0-16.0); MEAN CELL VOLUME 92.2 fl (80.0-105.0); MEAN CORPUSCULAR HEMOGLOBIN 31.1 pg (25.0-35.0); MEAN CORPUSCULAR HGB CONC 33.7 g/dl (31.0-37.0); MEAN PLATELET VOLUME 10.7 fl (7.0-11.0); MONO # 1.1 (0.1-0.6); MONO % 8.4 % (1.0-6.0); RBC 4.76 10^6/uL (3.5-6.1); RED CELL DISTRIBUTION WIDTH 13.5 % (11.5-14.5); WHITE BLOOD COUNT 12.6 10^3/uL (4.5-11.0)
[2018-03-21 07:40] LABS: ALB/GLOB RATIO 1.2 (1.1-1.8); ALBUMIN 4.2 g/dL (3.0-4.8); CALCIUM 10.3 mg/dL (8.4-10.5)
[2018-03-21] MEDS: Budesonide 0.5 mg/2 ml Inhal Susp UD IH SCH ×2 (07:43→21:15)
--- NOTE | 2018-03-21 07:43 | CP.PCM.PN ---
<Margarita Ponce - Last Filed: 03/21/18 10:26> Subjective - Date & Time of Evaluation Date of Evaluation: 03/21/18 Time of Evaluation: 07:43 - Subjective Subjective: Hospitalist progress note for Selena Crowe PGY3 Patient seen and examined at bedside. There were no acute overnight events as per nursing staff. Patient reports having some nausea, but otherwise feels well. She denies chest pain, shortness of breath, vomiting/diarrhea, fever or chills. Objective - Vital Signs/Intake and Output Vital Signs (last 24 hours): Temp Pulse Resp BP Pulse Ox 98.6 F 73 18 120/68 96 03/20/18 06:00 03/20/18 06:00 03/20/18 06:00 03/20/18 17:13 03/20/18 06:00 Intake and Output: 03/21/18 03/21/18 06:59 18:59 Intake Total 360 Balance 360 - Medications Medications: Current Medications Alprazolam (Xanax) 0.5 mg PO TID PRN; Protocol PRN Reason: Anxiety Last Admin: 03/20/18 22:02 Dose: 0.5 mg Arformoterol Tartrate (Brovana) 15 mcg IH DAILY [facility]; Protocol Last Admin: 03/20/18 07:48 Dose: 15 mcg Aspirin (Ecotrin) 81 mg PO 0800 [facility]; Protocol Last Admin: 03/20/18 08:28 Dose: 81 mg Atorvastatin Calcium (Lipitor) 10 mg PO DIN [facility]; Protocol Last Admin: 03/20/18 17:13 Dose: 10 mg Benzocaine/Menthol (Cepacol Sore Throat) 1 doc MT Q2H PRN; Protocol PRN Reason: Sore Throat Bisacodyl (Dulcolax) 5 mg PO DAILY PRN PRN Reason: Constipation Last Admin: 03/20/18 08:30 Dose: 5 mg Budesonide (Pulmicort Respules) 1 mg IH [id number] [facility]; Protocol Last Admin: 03/20/18 19:48 Dose: 1 mg Cholecalciferol (Vitamin D) 1,000 intlu PO DAILY [facility]; Protocol Last Admin: 03/20/18 09:53 Dose: 1,000 intlu Doxycycline Hyclate (Doryx) 100 mg PO Q12 [facility]; Protocol Stop: 03/23/18 23:59 Last Admin: 03/20/18 22:01 Dose: 100 mg Fluticasone Propionate (Flonase) 1 actuation NS DAILY [facility]; Protocol Last Admin: 03/20/18 09:52 Dose: 1 applic Furosemide (Lasix) 40 mg PO BID [facility]; Protocol Last Admin: 03/20/18 17:13 Dose: 40 mg Guaifenesin (Robitussin) 200 mg PO Q4H PRN; Protocol PRN Reason: Cough and congestion Last Admin: 03/20/18 17:15 Dose: 200 mg Heparin Sodium (Porcine) (Heparin) 5,000 units SC Q8 [facility]; Protocol Last Admin: 03/21/18 05:23 Dose: 5,000 units Ipratropium [place] (Atrovent) 0.5 mg IH [id number] PRN; Protocol PRN Reason: Shortness of Breath Levothyroxine Sodium (Synthroid) 100 mcg PO 0600 [facility]; Protocol Last Admin: 03/21/18 05:23 Dose: 100 mcg Metoprolol Tartrate (Lopressor) 25 mg PO 0800 [facility]; Protocol Last Admin: 03/20/18 08:28 Dose: Not Given Ondansetron HCl (Zofran Odt) 4 mg PO Q8H PRN; Protocol PRN Reason: Nausea/Vomiting Pantoprazole Sodium (Protonix Ec Tab) 40 mg PO 0600 [facility]; Protocol Last Admin: 03/21/18 05:23 Dose: 40 mg Potassium Chloride (K-Dur 20 Meq Er Tab) 20 meq PO TID [facility]; Protocol Last Admin: 03/20/18 17:12 Dose: 20 meq Prednisone (Prednisone Tab) 40 mg PO DAILY [facility]; Protocol Stop: 03/22/18 10:01 Last Admin: 03/20/18 09:53 Dose: 40 mg Spironolactone (Aldactone) 25 mg PO BID [facility]; Protocol Last Admin: 03/20/18 17:12 Dose: 25 mg - Labs Labs: 03/21/18 06:00 03/21/18 06:00 - Constitutional Appears: No Acute Distress - Head Exam Head Exam: ATRAUMATIC, NORMAL INSPECTION, NORMOCEPHALIC - Eye Exam Eye Exam: Normal appearance, PERRL Pupil Exam: NORMAL ACCOMODATION - ENT Exam ENT Exam: Mucous Membranes Moist - Respiratory Exam Respiratory Exam: Clear to Ausculation Bilateral, NORMAL BREATHING PATTERN. absent: Rales, Rhonchi, Wheezes - Cardiovascular Exam Cardiovascular Exam: REGULAR RHYTHM, +S1, +S2. absent: Gallop, Rubs, Murmur - GI/Abdominal Exam GI & Abdominal Exam: Soft, Normal Bowel Sounds. absent: Rigid, Tenderness, Mass, Rebound - Extremities Exam Extremities Exam: Pedal Edema. absent: Calf Tenderness - Neurological Exam Neurological Exam: Alert, Awake, CN II-XII Intact - Psychiatric Exam Psychiatric exam: Normal Affect, Normal Mood - Skin Skin Exam: Dry, Warm Assessment and Plan - Assessment and Plan (Free Text) Assessment: This is a 77yo female with past medical history of COPD, bradycardia s/p pacer, HTN, HLD, diastolic CHF, a.fib (on ASA), GERD, anxiety/depression who was admitted for 1. COPD exacerbation - Continue Atrovent yomaira and prn as well as Brovanna - Continue Cepacol, Flonase and Robitussin for cough - Continue supplemental O2, is on 2L at home - Continue PO Prednisone taper 2. Gait instability - continue physical therapy 3. Bilateral LE Edema - improving - secondary to possible cellulitis - US LE negative for DVT - Continue Doxycycline day #4 out of 5 - Continue Lasix 40mg BID - Monitor I&O 4. Diastolic CHF - Continue Lasix with potassium supplementation 5. Chest pain- resolved - ACS ruled out - Most likely pleuritic from cough 6. HTN - Continue Lasix, Lopressor and Aldactone 7. Hypothyroidism - Continue Synthroid 8. HLD - Continue Lipitor 9. Constipation - improved - Continue Colace and Dulcolax prn 10. Anxiety - Continue Xanax prn 11. Vit D deficiency - Continue Vitamin D 12. Hx of A.fib - Continue ASA - EKG on admission showed HR of 79 and a dual paced rhythm 13. CKD stage IIIA- stable - continue to monitor Cr Dispo: Continue physical therapy in TCU. Anticipated d/c date in Mar 26. Case seen, discussed and reviewed with Dr. Aniket Ponce PGY3 <Lesley Marcial R - Last Filed: 03/21/18 15:27> Objective - Vital Signs/Intake and Output Vital Signs (last 24 hours): Temp Pulse Resp BP Pulse Ox 97.5 F L 86 18 120/73 98 03/21/18 10:00 03/21/18 10:00 03/21/18 10:00 03/21/18 10:00 03/21/18 10:00 Intake and Output: 03/21/18 03/21/18 06:59 18:59 Intake Total 360 Balance 360 - Medications Medications: Current Medications Alprazolam (Xanax) 0.5 mg PO TID PRN; Protocol PRN Reason: Anxiety Last Admin: 03/20/18 22:02 Dose: 0.5 mg Arformoterol Tartrate (Brovana) 15 mcg IH DAILY [facility]; Protocol Last Admin: 03/21/18 10:30 Dose: 15 mcg Aspirin (Ecotrin) 81 mg PO 0800 [facility]; Protocol Last Admin: 03/21/18 08:32 Dose: 81 mg Atorvastatin Calcium (Lipitor) 10 mg PO DIN [facility]; Protocol Last Admin: 03/20/18 17:13 Dose: 10 mg Benzocaine/Menthol (Cepacol Sore Throat) 1 doc MT Q2H PRN; Protocol PRN Reason: Sore Throat Last Admin: 03/21/18 14:40 Dose: 1 doc Bisacodyl (Dulcolax) 5 mg PO DAILY PRN PRN Reason: Constipation Last Admin: 03/20/18 08:30 Dose: 5 mg Budesonide (Pulmicort Respules) 1 mg IH [id number] [facility]; Protocol Last Admin: 03/21/18 07:43 Dose: 1 mg Cholecalciferol (Vitamin D) 1,000 intlu PO DAILY [facility]; Protocol Last Admin: 03/21/18 09:37 Dose: 1,000 intlu Docusate Sodium (Colace) 100 mg PO DAILY [facility] Doxycycline Hyclate (Doryx) 100 mg PO Q12 [facility]; Protocol Stop: 03/23/18 23:59 Last Admin: 03/21/18 09:36 Dose: 100 mg Fluticasone Propionate (Flonase) 1 actuation NS DAILY [facility]; Protocol Last Admin: 03/21/18 09:36 Dose: 2 applic Furosemide (Lasix) 40 mg PO BID [facility]; Protocol Last Admin: 03/21/18 09:37 Dose: 40 mg Guaifenesin (Robitussin) 200 mg PO Q4H PRN; Protocol PRN Reason: Cough and congestion Last Admin: 03/21/18 14:40 Dose: 200 mg Heparin Sodium (Porcine) (Heparin) 5,000 units SC Q8 [facility]; Protocol Last Admin: 03/21/18 14:39 Dose: 5,000 units Ipratropium [place] (Atrovent) 0.5 mg IH [id number] PRN; Protocol PRN Reason: Shortness of Breath Levothyroxine Sodium (Synthroid) 100 mcg PO 0600 [facility]; Protocol Last Admin: 03/21/18 05:23 Dose: 100 mcg Metoprolol Tartrate (Lopressor) 25 mg PO 0800 [facility]; Protocol Last Admin: 03/21/18 08:32 Dose: 25 mg Ondansetron HCl (Zofran Odt) 4 mg PO Q8H PRN; Protocol PRN Reason: Nausea/Vomiting Last Admin: 03/21/18 09:36 Dose: 4 mg Pantoprazole Sodium (Protonix Ec Tab) 40 mg PO 0600 [facility]; Protocol Last Admin: 03/21/18 05:23 Dose: 40 mg Potassium Chloride (K-Dur 20 Meq Er Tab) 20 meq PO TID [facility]; Protocol Last Admin: 03/21/18 14:40 Dose: 20 meq Prednisone (Prednisone Tab) 30 mg PO DAILY [facility] Stop: 03/22/18 10:01 Prednisone (Prednisone Tab) 20 mg PO DAILY [facility] Stop: 03/25/18 10:01 Prednisone (Prednisone Tab) 10 mg PO DAILY [facility] Stop: 03/27/18 10:01 Spironolactone (Aldactone) 25 mg PO BID [facility]; Protocol Last Admin: 03/21/18 09:35 Dose: 25 mg - Labs Labs: 03/21/18 06:00 03/21/18 06:00 Attending/Attestation - Attestation I have personally seen and examined this patient.: Yes I have fully participated in the care of the patient.: Yes I have reviewed all pertinent clinical information, including history, physical exam and plan: Yes Notes (Text): Patient seen and examined by me with resident at 10 AM on 03/21/18. Case including HPI, physical exam, and assessment and plan discussed with resident. Agree with above with following additions/corrections. Patient is a 77-year-old female past medical history significant for COPD, bradycardia status post pacemaker, diastolic CHF, atrial fibrillation, HTN, hypothyroidism, hypercholesterolemia, chronic hypokalemia, and anxiety that presented to emergency room with worsening shortness of breath and generalized weakness on 03/15/18. Patient was transferred to TCU on 03/18/18. Patient states she is feeling ok. Patient states she is feeling nauseous this morning but denies any vomiting or abdominal pain. Patient states she is having bowel movements. Cough and sore throat have improved. No shortness of breath. No chest pain or palpitations. No fevers or chills. No dysuria. No headaches or dizziness. Physical exam: General: Awake and alert sitting up in chair in no acute distress HEENT: Normocephalic, atraumatic. Extraocular muscles intact, pupils equal and reactive, no scleral icterus. Oropharynx is pink and moist. Neck is supple. Cardiovascular: Regular rhythm. Normal S1 and S2. No rubs or gallops appreciated Pulmonary: Normal respiratory effort. No rhonchi, rales, or wheezing appr eciated. Gastrointestinal: Soft, nondistended. Nontender. Positive bowel sounds all 4 quadrants. Musculoskeletal: Moves all extremities. No calf tenderness. No CVA tenderness. Bilateral improved lower extremity edema. Central nervous system: AAO x3, CN 2-12 grossly intact. Dermatologic: Skin warm and dry. Assessment and plan: Patient is a 77-year-old female past medical history significant for COPD, bradycardia status post pacemaker, diastolic CHF, atrial fibrillation, HTN, hypothyroidism, hypercholesterolemia, chronic hypokalemia, and anxiety that presented to emergency room 03/15/18 with worsening shortness of breath and generalized weakness. Patient was treated and transferred to TCU for gait instability and generalized weakness. 1. Gait instability. Generalized Weakness. Continue PT/OT as tolerated. Continue supportive care. 2. Chronic respiratory failure. Patient is on home oxygen at night time. S/P acute COPD exacerbation. Continue prednisone taper. Continue Brovana and P ulmicort. Continue Atrovent as needed. Continue O2 via nasal cannula as needed. 3. Cough and sore thoart. Continues to improve. Continue Cepacol as needed. Continue robitussin as needed. 4. Chest pain. Noncardiac in origin. Resolved. 5. Diastolic CHF. Chronic. Compensated. Continue Lasix 40mg PO BID. Continue Lopressor and Aldactone. 6. History of a-fib. S/P pacemaker. Continue with metoprolol. 7. Bilateral lower extremity edema. ?cellulitis. Continue Lasix. Lower extremity venous dopplers negative for DVT. Continue doxycycline. 8. Hypertension. Continue metoprolol 9. Hypothyroidism. Continue synthroid 10. Vitamin D Deficiency. Continue home vitamin D. 11. Anxiety. Continue xanax at bedtime 12. Constipation. Resolved. Continue Colace. Continue dulcolax as needed. 13. Chronic hypokalemia. Continue Potassium 14. Hypercholesterolemia. Continue Lipitor 15. GI prophylaxis. Continue Protonix. Case discussed in detail with patient regarding current diagnosis and treatment plan. All questions answered.
[2018-03-21] MEDS: Fluticasone Nasal 50 mcg/Spray NS SCH (09:36)
[2018-03-21] MEDS: Potassium Chloride 20 mEq ER Tab PO SCH ×3 (09:36→17:54)
[2018-03-21] MEDS: Cholecalciferol 1,000 INTLU TAB PO SCH (09:37)
[2018-03-21] MEDS: Arformoterol 15 mcg/2 ml Inh Sol IH SCH (10:30)
[2018-03-21] MEDS: guaiFENesin 200 mg/10 ml Syrup UD PO PRN ×3 (14:40→22:12)
[2018-03-22] MEDS: Levothyroxine 100 MCG TAB PO SCH (06:12)
[2018-03-22] MEDS: Pantoprazole 40 mg EC Tab PO SCH (06:12)
[2018-03-22] MEDS: Budesonide 0.5 mg/2 ml Inhal Susp UD IH SCH ×2 (07:34→21:25)
[2018-03-22] MEDS: Potassium Chloride 20 mEq ER Tab PO SCH ×3 (09:33→17:15)
[2018-03-22] MEDS: Cholecalciferol 1,000 INTLU TAB PO SCH (09:34)
[2018-03-22] MEDS: Fluticasone Nasal 50 mcg/Spray NS SCH (09:37)
[2018-03-22] MEDS: Arformoterol 15 mcg/2 ml Inh Sol IH SCH (10:56)
[2018-03-22] MEDS ORDERED: Arformoterol 15 mcg/2 ml Inh Sol IH SCH (12:00)
[2018-03-22] MEDS: Bisacodyl 5mg EC Tab PO PRN (17:17)
[2018-03-22] MEDS: guaiFENesin-Codeine 100-10mg/5ml Syrup (5 ml) UD PO PRN (21:52)
[2018-03-23] MEDS: Pantoprazole 40 mg EC Tab PO SCH (06:04)
[2018-03-23] MEDS: Levothyroxine 100 MCG TAB PO SCH (06:04)
[2018-03-23] MEDS: Budesonide 0.5 mg/2 ml Inhal Susp UD IH SCH ×2 (07:25→20:59)
[2018-03-23] MEDS: Potassium Chloride 20 mEq ER Tab PO SCH ×3 (10:03→17:20)
[2018-03-23] MEDS: Fluticasone Nasal 50 mcg/Spray NS SCH (10:03)
[2018-03-23] MEDS: Cholecalciferol 1,000 INTLU TAB PO SCH (10:04)
[2018-03-23] MEDS: Albuterol-Ipratrop 3 mg / 0.5 (3 ml) UD IH SCH ×2 (13:19→20:59)
--- NOTE | 2018-03-23 13:23 | CP.PCM.PN ---
<Dennis Weaver - Last Filed: 03/23/18 13:20> Subjective - Date & Time of Evaluation Date of Evaluation: 03/23/18 Time of Evaluation: 13:20 - Subjective Subjective: PGY1 Medicine Progress Note for Dr. Mo Patient was seen and evaluated at bedside this morning. No acute events overnight. Patient without complaints today; was able to get rest overnight. Patient states her cough improved. Patient otherwise denies chest pain, abdominal pain, diarrhea, dysuria, numbness and/or tingling in lower extremities, rash, headache, dizziness, fever, chills, nausea and/or vomiting. Objective - Vital Signs/Intake and Output Vital Signs (last 24 hours): Temp Pulse Resp BP Pulse Ox 97.5 F L 77 18 118/70 98 03/21/18 10:00 03/22/18 07:47 03/21/18 10:00 03/23/18 10:03 03/21/18 10:00 Intake and Output: 03/23/18 03/23/18 06:59 18:59 Intake Total 340 Balance 340 - Medications Medications: Current Medications Albuterol/Ipratropium (Duoneb 3 Mg/0.5 Mg (3 Ml) Ud) 3 ml IH TIDRESP [facility] Alprazolam (Xanax) 0.5 mg PO TID PRN; Protocol PRN Reason: Anxiety Last Admin: 03/22/18 21:43 Dose: 0.5 mg Aspirin (Ecotrin) 81 mg PO 0800 [facility]; Protocol Last Admin: 03/23/18 07:53 Dose: 81 mg Atorvastatin Calcium (Lipitor) 10 mg PO DIN [facility]; Protocol Last Admin: 03/22/18 17:15 Dose: 10 mg Benzocaine/Menthol (Cepacol Sore Throat) 1 doc MT Q2H PRN; Protocol PRN Reason: Sore Throat Last Admin: 03/21/18 14:40 Dose: 1 doc Bisacodyl (Dulcolax) 5 mg PO DAILY PRN PRN Reason: Constipation Last Admin: 03/22/18 17:17 Dose: 5 mg Budesonide (Pulmicort Respules) 1 mg IH [id number] [facility]; Protocol Last Admin: 03/23/18 07:25 Dose: 1 mg Cholecalciferol (Vitamin D) 1,000 intlu PO DAILY [facility]; Protocol Last Admin: 03/23/18 10:04 Dose: 1,000 intlu Docusate Sodium (Colace) 100 mg PO DAILY [facility] Last Admin: 03/23/18 10:02 Dose: 100 mg Doxycycline Hyclate (Doryx) 100 mg PO Q12 [facility]; Protocol Stop: 03/23/18 23:59 Last Admin: 03/23/18 10:02 Dose: 100 mg Fluticasone Propionate (Flonase) 1 actuation NS DAILY [facility]; Protocol Last Admin: 03/23/18 10:03 Dose: 2 applic Furosemide (Lasix) 40 mg PO BID [facility]; Protocol Last Admin: 03/23/18 10:03 Dose: 40 mg Guaifenesin (Robitussin) 200 mg PO Q4H PRN; Protocol PRN Reason: Cough and congestion Last Admin: 03/21/18 22:12 Dose: 200 mg Guaifenesin/Codeine Phosphate (Robitussin W/Codeine) 5 ml PO HS PRN PRN Reason: Cough and congestion Last Admin: 03/22/18 21:52 Dose: 5 ml Heparin Sodium (Porcine) (Heparin) 5,000 units SC Q12 [facility]; Protocol Last Admin: 03/23/18 10:06 Dose: 5,000 units Ipratropium [place] (Atrovent) 0.5 mg IH [id number] PRN; Protocol PRN Reason: Shortness of Breath Levothyroxine Sodium (Synthroid) 100 mcg PO 0600 [facility]; Protocol Last Admin: 03/23/18 06:04 Dose: 100 mcg Metoprolol Tartrate (Lopressor) 25 mg PO 0800 [facility]; Protocol Last Admin: 03/23/18 07:37 Dose: Not Given Ondansetron HCl (Zofran Odt) 4 mg PO Q8H PRN; Protocol PRN Reason: Nausea/Vomiting Last Admin: 03/21/18 09:36 Dose: 4 mg Pantoprazole Sodium (Protonix Ec Tab) 40 mg PO 0600 [facility]; Protocol Last Admin: 03/23/18 06:04 Dose: 40 mg Potassium Chloride (K-Dur 20 Meq Er Tab) 20 meq PO TID [facility]; Protocol Last Admin: 03/23/18 10:03 Dose: 20 meq Prednisone (Prednisone Tab) 20 mg PO DAILY [facility] Stop: 03/25/18 10:01 Last Admin: 03/23/18 10:03 Dose: 20 mg Prednisone (Prednisone Tab) 10 mg PO DAILY [facility] Stop: 03/27/18 10:01 Spironolactone (Aldactone) 25 mg PO BID [facility]; Protocol Last Admin: 03/23/18 10:02 Dose: 25 mg - Labs Labs: 03/21/18 06:00 03/21/18 06:00 - Additional Findings Additional findings: - Constitutional Appears: No Acute Distress - Head Exam Head Exam: ATRAUMATIC, NORMAL INSPECTION, NORMOCEPHALIC - Eye Exam Eye Exam: Normal appearance, PERRL Pupil Exam: NORMAL ACCOMODATION - ENT Exam ENT Exam: Mucous Membranes Moist - Respiratory Exam Respiratory Exam: Clear to Ausculation Bilateral, NORMAL BREATHING PATTERN. a bsent: Rales, Rhonchi, Wheezes - Cardiovascular Exam Cardiovascular Exam: REGULAR RHYTHM, +S1, +S2. absent: Gallop, Rubs, Murmur - GI/Abdominal Exam GI & Abdominal Exam: Soft, Normal Bowel Sounds. absent: Rigid, Tenderness, Mass, Rebound - Extremities Exam Extremities Exam: Pedal Edema bilateral. absent: Calf Tenderness - Neurological Exam Neurological Exam: Alert, Awake, CN II-XII Intact - Psychiatric Exam Psychiatric exam: Normal Affect, Normal Mood - Skin Skin Exam: Dry, Warm Assessment and Plan - Assessment and Plan (Free Text) Assessment: This is a 77yo female with past medical history of COPD, bradycardia s/p pacer, HTN, HLD, diastolic CHF, a.fib (on ASA), GERD, anxiety/depression who was admitted for COPD exacerbation - Start Duoneb Scheduled TID - Monitor for tachycardia - Continue Atrovent yomaira and prn as well as Brovanna - Continue Cepacol, Flonase and Robitussin for cough - Continue supplemental O2, is on 2L at home - Continue PO Prednisone taper Gait instability - continue physical therapy Bilateral LE Edema - improving - secondary to possible cellulitis - US LE negative for DVT - Continue Doxycycline day #4 out of 5 - Continue Lasix 40mg BID - Monitor I&O Diastolic CHF - Continue Lasix with potassium supplementation Chest pain- resolved - ACS ruled out - Most likely pleuritic from cough HTN - Continue Lasix - Continue Lopressor - Continue Aldactone Hypothyroidism - Continue Synthroid HLD - Continue Lipitor Constipation - improved - Continue Colace and Dulcolax prn Anxiety - Continue Xanax prn Vit D deficiency - Continue Vitamin D History of Atrial Fibrillation - Continue ASA - EKG on admission showed HR of 79 and a dual paced rhythm History of symptomatic Bradycardia - Patient s/p pacemaker - Cardiology (Dr. Holden) consulted for pacemaker interrogation; recommendations appreciated CKD stage IIIA- stable - continue to monitor Cr with CMP every other day Dispo: Continue physical therapy in TCU. Anticipated d/c date in Mar 26. Patient seen and case discussed and reviewed with Attending Physician, Dr. Chepe Weaver PGY1 <Glenis Mo - Last Filed: 03/24/18 16:02> Objective - Vital Signs/Intake and Output Vital Signs (last 24 hours): Temp Pulse Resp BP Pulse Ox 97.6 F 69 17 115/66 69 L 03/24/18 07:00 03/24/18 07:00 03/24/18 07:00 03/24/18 14:30 03/24/18 07:00 Intake and Output: 03/24/18 03/24/18 06:59 18:59 Intake Total 340 Balance 340 - Medications Medications: Current Medications Albuterol/Ipratropium (Duoneb 3 Mg/0.5 Mg (3 Ml) Ud) 3 ml IH TIDRESP [facility]A Last Admin: 03/24/18 13:02 Dose: 3 ml Alprazolam (Xanax) 0.5 mg PO TID PRN; Protocol PRN Reason: Anxiety Last Admin: 03/23/18 22:25 Dose: 0.5 mg Aspirin (Ecotrin) 81 mg PO 0800 [facility]; Protocol Last Admin: 03/24/18 08:16 Dose: 81 mg Atorvastatin Calcium (Lipitor) 10 mg PO DIN [facility]; Protocol Last Admin: 03/23/18 17:19 Dose: 10 mg Benzocaine/Menthol (Cepacol Sore Throat) 1 doc MT Q2H PRN; Protocol PRN Reason: Sore Throat Last Admin: 03/21/18 14:40 Dose: 1 doc Bisacodyl (Dulcolax) 5 mg PO DAILY PRN PRN Reason: Constipation Last Admin: 03/23/18 22:23 Dose: 5 mg Budesonide (Pulmicort Respules) 1 mg IH [id number] [facility]; Protocol Last Admin: 03/24/18 07:17 Dose: 1 mg Cholecalciferol (Vitamin D) 1,000 intlu PO DAILY [facility]; Protocol Last Admin: 03/24/18 09:51 Dose: 1,000 intlu Docusate Sodium (Colace) 100 mg PO DAILY [facility] Last Admin: 03/24/18 09:48 Dose: 100 mg Fluticasone Propionate (Flonase) 1 actuation NS DAILY [facility]; Protocol Last Admin: 03/24/18 09:48 Dose: 1 applic Furosemide (Lasix) 40 mg PO 0800,1400 [facility]; Protocol Last Admin: 03/24/18 14:30 Dose: 40 mg Guaifenesin (Robitussin) 200 mg PO Q4H PRN; Protocol PRN Reason: Cough and congestion Last Admin: 03/21/18 22:12 Dose: 200 mg Guaifenesin/Codeine Phosphate (Robitussin W/Codeine) 5 ml PO HS PRN PRN Reason: Cough and congestion Last Admin: 03/22/18 21:52 Dose: 5 ml Heparin Sodium (Porcine) (Heparin) 5,000 units SC 0600,1800 [facility]; Protocol Ipratropium [place] (Atrovent) 0.5 mg IH [id number] PRN; Protocol PRN Reason: Shortness of Breath Levothyroxine Sodium (Synthroid) 100 mcg PO 0600 [facility]; Protocol Last Admin: 03/24/18 05:12 Dose: 100 mcg Metoprolol Tartrate (Lopressor) 25 mg PO 0800,1800 [facility]; Protocol Multivitamins (Thera Tab) 1 tab PO 0800 [facility] Ondansetron HCl (Zofran Odt) 4 mg PO Q8H PRN; Protocol PRN Reason: Nausea/Vomiting Last Admin: 03/21/18 09:36 Dose: 4 mg Pantoprazole Sodium (Protonix Ec Tab) 40 mg PO 0600 [facility]; Protocol Last Admin: 03/24/18 05:12 Dose: 40 mg Polyethylene Glycol (Miralax) 17 gm PO BID [facility] Potassium Chloride (K-Dur 20 Meq Er Tab) 20 meq PO 0800,1200,1800 [facility]; Protocol Last Admin: 03/24/18 14:32 Dose: Not Given Prednisone (Prednisone Tab) 10 mg PO 0800 [facility] Stop: 03/27/18 08:01 Spironolactone (Aldactone) 25 mg PO BID [facility]; Protocol Last Admin: 03/24/18 09:48 Dose: 25 mg - Labs Labs: 03/24/18 06:00 03/24/18 06:00 Attending/Attestation - Attestation I have personally seen and examined this patient.: Yes I have fully participated in the care of the patient.: Yes I have reviewed all pertinent clinical information, including history, physical exam and plan: Yes Notes (Text): 03/24/18 15:57 Attending note; Patient seen and examined with resident. Patient is complaining of occasional wheezing and cough. Complaining of throat irritation at times. Denies any fevers, chills. Tolerating diet well. Getting physical therapy. Patient is on oxygen nasal cannula. Patient is a 77-year-old female past medical history significant for COPD, bradycardia status post pacemaker, diastolic CHF, HTN, hypothyroidism, hypercholesterolemia, and anxiety that presented to emergency room 03/15/18 with worsening shortness of breath and generalized weakness. Patient was treated and transferred to TCU for gait instability and generalized weakness. 1. Gait instability. Generalized Weakness. Continue PT/OT as tolerated. Continue supportive care. 2. Chronic respiratory failure. Patient is on home oxygen at night time. S/P acute COPD exacerbation. Continue prednisone taper. Continue Brovana and Pulmicort. Continue Atrovent as needed. Continue O2 via nasal cannula as needed. 3. Cough and sore thoart. Continues to improve. Continue Cepacol as needed. Continue robitussin as needed. 4. Diastolic CHF. Chronic. Compensated. Continue Lasix, Lopressor and Aldactone. 5. History of sick sinus syndrome. S/P pacemaker. Continue with metoprolol. 6. Hypertension. Continue metoprolol 7. Hypothyroidism. Continue synthroid 8. Constipation. Continue dulcolax as needed. 9. Hypercholesterolemia. Continue Lipitor 10. GI prophylaxis. Continue Protonix. case discussed with patient and patient daughter in detail. Upon discharge the patient will follow-up with PMD .
--- NOTE | 2018-03-23 19:06 | PN ---
DATE: 03/21/2018 SEX OF THE PATIENT: Female. AGE OF THE PATIENT: 77. REASON FOR CONSULTATION AND FOLLOWUP: Continuity of care in transitional care unit, history of nonobstructive coronary artery disease; sick sinus syndrome, status post pacemaker; history of COPD exacerbation; diabetes. SUBJECTIVE: The patient denies any chest pain or shortness of breath. Feels okay. Occasionally feels palpitation. PHYSICAL EXAMINATION: As follows: VITAL SIGNS: Temperature afebrile, heart rate 77, blood pressure 106/66. HEENT: PERRLA. Extraocular muscles intact. NECK: Supple. No carotid bruits or thyromegaly. CHEST: Clear to auscultation. HEART: S1 and S2 are regular. ABDOMEN: Soft. EXTREMITIES: Clubbing and cyanosis negative. LABORATORY DATA: Blood workup as follows: WBC 12.7, hemoglobin 14.8, hematocrit 43.8, platelets are 262. Chemistry showed as of 03/21/2018, sodium 134, potassium 4.6, chloride 96, carbon dioxide 32, anion gap of 14, BUN of 32, and creatinine of 1.3. IMPRESSION: Acute exacerbation of chronic obstructive pulmonary disease, history of cardiac catheterization, nonobstructive coronary artery disease, pulmonary hypertension, cardiac catheterization dated 2017, history of pacemaker recently, history of degenerative change. RECOMMENDATIONS: Continue rehab. Continue spironolactone. Continue aspirin. Continue DVT prophylaxis. Continue Lasix 40 mg p.o. b.i.d. and atorvastatin. Continue metoprolol 25 mg p.o. The patient is complaining some palpitation. We will increase Lopressor to 25 mg b.i.d. Repeat the blood workup in the morning. Discharge planning. We will follow with you. Thank you Dr. Mo for providing us the opportunity in taking care of Kimball. Jefferson Levine MD
[2018-03-23] MEDS: Bisacodyl 5mg EC Tab PO PRN (22:23)
[2018-03-24] MEDS: Levothyroxine 100 MCG TAB PO SCH (05:12)
[2018-03-24] MEDS: Pantoprazole 40 mg EC Tab PO SCH (05:12)
[2018-03-24 06:45] LABS: ALB/GLOB RATIO 1.3 (1.1-1.8); ALBUMIN 4.2 g/dL (3.0-4.8); CALCIUM 10.6 mg/dL (8.4-10.5)
[2018-03-24 07:07] LABS: HEMOGLOBIN 15.1 g/dL (12.0-16.0); MEAN CELL VOLUME 92.8 fl (80.0-105.0); MEAN CORPUSCULAR HEMOGLOBIN 31.2 pg (25.0-35.0); MEAN CORPUSCULAR HGB CONC 33.6 g/dl (31.0-37.0); MEAN PLATELET VOLUME 10.7 fl (7.0-11.0); RBC 4.84 10^6/uL (3.5-6.1); RED CELL DISTRIBUTION WIDTH 13.8 % (11.5-14.5); WHITE BLOOD COUNT 14.6 10^3/uL (4.5-11.0)
[2018-03-24] MEDS: Budesonide 0.5 mg/2 ml Inhal Susp UD IH SCH ×2 (07:17→19:20)
[2018-03-24] MEDS: Albuterol-Ipratrop 3 mg / 0.5 (3 ml) UD IH SCH ×3 (07:17→19:20)
[2018-03-24] MEDS: Potassium Chloride 20 mEq ER Tab PO SCH ×4 (08:16→17:21)
[2018-03-24] MEDS: Fluticasone Nasal 50 mcg/Spray NS SCH (09:48)
[2018-03-24] MEDS: Cholecalciferol 1,000 INTLU TAB PO SCH (09:51)
--- NOTE | 2018-03-24 13:33 | PN ---
DATE: 03/24/2018 LOCATION: The patient is in room 327, bed 2. REASON FOR CONSULTATION AND FOLLOWUP: Continuity of care in the transitional care unit, history of nonobstructive coronary artery disease, sick sinus syndrome, status post pacemaker insertion, history of COPD with exacerbation, diabetes mellitus. SUBJECTIVE: The patient is lying flat in bed without chest pain. The patient states that on exertion, she is sometimes getting shortness of breath. She off and on has cough, but less than before. Denies any palpitation. PHYSICAL EXAMINATION VITAL SIGNS: Blood pressure 120/60, respirations 17, pulse 69, temperature 97.6. HEENT: Head, normocephalic. Pupils normal. Conjunctivae normal. Nose and throat normal. NECK: JVP low. Carotid equal. THORAX: AP diameter normal. LUNGS: A few wheezing, otherwise clear lungs. CARDIOVASCULAR: S1, S2. ABDOMEN: Soft, no tenderness, no organomegaly. Bowel sounds normal. EXTREMITIES: No clubbing, no cyanosis. LABORATORY DATA: WBC 14.6, hemoglobin 15.1, hematocrit 44.9, platelets 261,000. Sodium 132, potassium 4.9, BUN 57, creatinine 1.1, glucose 143. Calcium 10.6, phosphorus 3.9. DIAGNOSES: Acute exacerbation of chronic obstructive pulmonary disease, pulmonary hypertension, cardiac catheterization showing nonobstructive coronary artery disease, hypertension, respiratory tract infection, deconditioning, status post pacemaker insertion. PLAN: To continue physical therapy. Continue spironolactone 25 two times a day, hand-nebulizer therapy DuoNeb, aspirin 81 daily, heparin 5000 units, DVT prophylaxis, potassium 20 mEq three times a day, furosemide 40 two times a day, atorvastatin 10 daily, metoprolol 25 two times a day, prednisone 10 daily, Protonix 40 daily, levothyroxine 100 mcg by mouth daily. We will repeat labs in the morning. Calcium is slightly elevated, so we will repeat it. We will continue to follow closely with you. Jefferson Solomon MD
[2018-03-24] MEDS: POLYETHYLENE GLYCOL 3350 17 GM/Dose PACKET PO SCH (17:20)
[2018-03-25] MEDS: Pantoprazole 40 mg EC Tab PO SCH (05:50)
[2018-03-25] MEDS: Levothyroxine 100 MCG TAB PO SCH (05:50)
[2018-03-25 06:10] LABS: HEMOGLOBIN 14.5 g/dL (12.0-16.0); MEAN CELL VOLUME 93.5 fl (80.0-105.0); MEAN CORPUSCULAR HEMOGLOBIN 31.3 pg (25.0-35.0); MEAN CORPUSCULAR HGB CONC 33.4 g/dl (31.0-37.0); MEAN PLATELET VOLUME 10.2 fl (7.0-11.0); RBC 4.64 10^6/uL (3.5-6.1); RED CELL DISTRIBUTION WIDTH 13.9 % (11.5-14.5); WHITE BLOOD COUNT 14.7 10^3/uL (4.5-11.0)
[2018-03-25 06:40] LABS: BLOOD UREA NITROGEN 47 mg/dL (7-21); CALCIUM 10.3 mg/dL (8.4-10.5); GFR NON-AFRICAN AMERICAN 54
--- NOTE | 2018-03-25 06:55 | CP.PCM.PN ---
<Dennis Weaver - Last Filed: 03/25/18 14:43> Subjective - Date & Time of Evaluation Date of Evaluation: 03/25/18 Time of Evaluation: 06:52 - Subjective Subjective: PGY1 Medicine Progress Note for Dr. Mo Patient was seen and evaluated at bedside this morning. No acute events overnight. Patient complaining that she is feeling shaky and anxious. Patient states she still has not been able to have a trevor movement. Patient otherwise denies chest pain, abdominal pain, diarrhea, dysuria, numbness and/or tingling in lower extremities, rash, headache, dizziness, fever, chills, nausea and/or vomiting. Objective - Vital Signs/Intake and Output Vital Signs (last 24 hours): Temp Pulse Resp BP Pulse Ox 97.7 F 80 18 108/66 95 03/24/18 16:00 03/24/18 17:18 03/24/18 16:00 03/24/18 17:18 03/24/18 16:00 - Medications Medications: Current Medications Albuterol/Ipratropium (Duoneb 3 Mg/0.5 Mg (3 Ml) Ud) 3 ml IH TIDRESP YOMAIRA Last Admin: 03/24/18 19:20 Dose: 3 ml Alprazolam (Xanax) 0.5 mg PO TID PRN; Protocol PRN Reason: Anxiety Last Admin: 03/24/18 21:55 Dose: 0.5 mg Aspirin (Ecotrin) 81 mg PO 0800 YOMAIRA; Protocol Last Admin: 03/24/18 08:16 Dose: 81 mg Atorvastatin Calcium (Lipitor) 10 mg PO DIN YOMAIRA; Protocol Last Admin: 03/24/18 17:18 Dose: 10 mg Benzocaine/Menthol (Cepacol Sore Throat) 1 doc MT Q2H PRN; Protocol PRN Reason: Sore Throat Last Admin: 03/21/18 14:40 Dose: 1 doc Bisacodyl (Dulcolax) 5 mg PO DAILY PRN PRN Reason: Constipation Last Admin: 03/23/18 22:23 Dose: 5 mg Budesonide (Pulmicort Respules) 1 mg IH [id number] YOMAIRA; Protocol Last Admin: 03/24/18 19:20 Dose: 1 mg Cholecalciferol (Vitamin D) 1,000 intlu PO DAILY YOMAIRA; Protocol Last Admin: 03/24/18 09:51 Dose: 1,000 intlu Docusate Sodium (Colace) 100 mg PO DAILY YOMAIRA Last Admin: 03/24/18 09:48 Dose: 100 mg Fluticasone Propionate (Flonase) 1 actuation NS DAILY YOMAIRA; Protocol Last Admin: 03/24/18 09:48 Dose: 1 applic Furosemide (Lasix) 40 mg PO 0800,1400 YOMAIRA; Protocol Last Admin: 03/24/18 14:30 Dose: 40 mg Guaifenesin (Robitussin) 200 mg PO Q4H PRN; Protocol PRN Reason: Cough and congestion Last Admin: 03/21/18 22:12 Dose: 200 mg Guaifenesin/Codeine Phosphate (Robitussin W/Codeine) 5 ml PO HS PRN PRN Reason: Cough and congestion Last Admin: 03/22/18 21:52 Dose: 5 ml Heparin Sodium (Porcine) (Heparin) 5,000 units SC 0600,1800 YOMAIRA; Protocol Last Admin: 03/25/18 05:50 Dose: 5,000 units Ipratropium [place] (Atrovent) 0.5 mg IH [id number] PRN; Protocol PRN Reason: Shortness of Breath Levothyroxine Sodium (Synthroid) 100 mcg PO 0600 YOMAIRA; Protocol Last Admin: 03/25/18 05:50 Dose: 100 mcg Metoprolol Tartrate (Lopressor) 25 mg PO 0800,1800 YOMAIRA; Protocol Last Admin: 03/24/18 17:18 Dose: 25 mg Multivitamins (Thera Tab) 1 tab PO 0800 YOMAIRA Ondansetron HCl (Zofran Odt) 4 mg PO Q8H PRN; Protocol PRN Reason: Nausea/Vomiting Last Admin: 03/21/18 09:36 Dose: 4 mg Pantoprazole Sodium (Protonix Ec Tab) 40 mg PO 0600 YOMAIRA; Protocol Last Admin: 03/25/18 05:50 Dose: 40 mg Polyethylene Glycol (Miralax) 17 gm PO BID YOMAIRA Last Admin: 03/24/18 17:20 Dose: 17 gm Potassium Chloride (K-Dur 20 Meq Er Tab) 20 meq PO 0800,1200,1800 YOMAIRA; Protocol Last Admin: 03/24/18 17:21 Dose: 20 meq Prednisone (Prednisone Tab) 10 mg PO 0800 YOMAIRA Stop: 03/27/18 08:01 Spironolactone (Aldactone) 25 mg PO BID YOMAIRA; Protocol Last Admin: 03/24/18 17:16 Dose: 25 mg - Labs Labs: 03/25/18 05:45 03/25/18 05:45 - Additional Findings Additional findings: - Constitutional Appears: No Acute Distress - Head Exam Head Exam: ATRAUMATIC, NORMAL INSPECTION, NORMOCEPHALIC - Eye Exam Eye Exam: Normal appearance, PERRL Pupil Exam: NORMAL ACCOMODATION - ENT Exam ENT Exam: Mucous Membranes Moist - Respiratory Exam Respiratory Exam: Clear to Ausculation Bilateral, NORMAL BREATHING PATTERN. absent: Rales, Rhonchi, Wheezes - Cardiovascular Exam Cardiovascular Exam: REGULAR RHYTHM, +S1, +S2. absent: Gallop, Rubs, Murmur - GI/Abdominal Exam GI & Abdominal Exam: Soft, Normal Bowel Sounds. absent: Rigid, Tenderness, Mass, Rebound - Extremities Exam Extremities Exam: Pedal Edema bilateral. absent: Calf Tenderness - Neurological Exam Neurological Exam: Alert, Awake, CN II-XII Intact - Psychiatric Exam Psychiatric exam: Normal Affect, Normal Mood - Skin Skin Exam: Dry, Warm Assessment and Plan - Assessment and Plan (Free Text) Assessment: This is a 77-year-old female with past medical history of COPD, bradycardia s/p pacer, HTN, HLD, diastolic CHF, a.fib (on ASA), GERD, anxiety/depression who was admitted for COPD exacerbation - Start Duoneb changed to PRN for shortness of breath due to complaint of feeling shaky - Monitor for tachycardia - Continue Atrovent yomaira and prn as well as Brovanna - Continue Cepacol, Flonase and Robitussin for cough - Continue supplemental O2, is on 2L at home - Continue PO Prednisone taper Hyperkalemia - Patient treated with Kayexalate - EKG obtained and was NSR with no abnormalities - Likely due to over-supplementation of K+ due to predisposition of hypokalemia, as she is on diuretics - Monitor daily CMP Gait instability - Continue physical therapy Bilateral LE Edema - improving - Secondary to possible cellulitis - US LE negative for DVT - Continue Doxycycline day #4 out of 5 - Continue Lasix 40mg BID - Monitor I&O Diastolic CHF - Continue Lasix with potassium supplementation Chest pain- resolved - ACS ruled out - Most likely pleuritic from cough HTN - Continue Lasix - Continue Lopressor - Continue Aldactone Hypothyroidism - Continue Synthroid HLD - Continue Lipitor Constipation - improved - Continue Colace and Dulcolax prn Anxiety - Continue Xanax prn Vit D deficiency - Continue Vitamin D History of Atrial Fibrillation - Continue ASA - EKG on admission showed HR of 79 and a dual paced rhythm History of symptomatic Bradycardia - Patient s/p pacemaker - Cardiology (Dr. Holden) consulted for pacemaker interrogation; recommen dations appreciated CKD stage IIIA- stable - continue to monitor Cr with CMP every other day Dispo: Continue physical therapy in TCU. Anticipated d/c date in Mar 26. Patient seen and case discussed and reviewed with Attending Physician, Dr. Chepe Weaver PGY1 <Glenis Mo - Last Filed: 03/25/18 17:21> Objective - Vital Signs/Intake and Output Vital Signs (last 24 hours): Temp Pulse Resp BP Pulse Ox 98.1 F 104 H 18 132/79 99 03/25/18 10:00 03/25/18 10:00 03/25/18 10:00 03/25/18 13:40 03/25/18 10:00 - Medications Medications: Current Medications Albuterol/Ipratropium (Duoneb 3 Mg/0.5 Mg (3 Ml) Ud) 3 ml IH TIDRESP YOMAIRA Last Admin: 03/25/18 14:32 Dose: 3 ml Alprazolam (Xanax) 0.5 mg PO TID PRN; Protocol PRN Reason: Anxiety Last Admin: 03/24/18 21:55 Dose: 0.5 mg Aspirin (Ecotrin) 81 mg PO 0800 [facility]; Protocol Last Admin: 03/25/18 07:57 Dose: 81 mg Atorvastatin Calcium (Lipitor) 10 mg PO DIN YOMAIRA; Protocol Last Admin: 03/24/18 17:18 Dose: 10 mg Benzocaine/Menthol (Cepacol Sore Throat) 1 doc MT Q2H PRN; Protocol PRN Reason: Sore Throat Last Admin: 03/21/18 14:40 Dose: 1 doc Bisacodyl (Dulcolax) 5 mg PO DAILY PRN PRN Reason: Constipation Last Admin: 03/25/18 14:37 Dose: 5 mg Budesonide (Pulmicort Respules) 1 mg IH [id number] YOMAIRA; Protocol Last Admin: 03/25/18 07:09 Dose: 1 mg Cholecalciferol (Vitamin D) 1,000 intlu PO DAILY YOMAIRA; Protocol Last Admin: 03/25/18 10:11 Dose: 1,000 intlu Docusate Sodium (Colace) 100 mg PO DAILY YOMAIRA Last Admin: 03/25/18 10:10 Dose: 100 mg Fluticasone Propionate (Flonase) 1 actuation NS DAILY YOMAIRA; Protocol Last Admin: 03/25/18 10:11 Dose: 1 applic Furosemide (Lasix) 40 mg PO 0800,1400 YOMAIRA; Protocol Last Admin: 03/25/18 13:40 Dose: 40 mg Guaifenesin (Robitussin) 200 mg PO Q4H PRN; Protocol PRN Reason: Cough and congestion Last Admin: 03/21/18 22:12 Dose: 200 mg Guaifenesin/Codeine Phosphate (Robitussin W/Codeine) 5 ml PO HS PRN PRN Reason: Cough and congestion Last Admin: 03/22/18 21:52 Dose: 5 ml Heparin Sodium (Porcine) (Heparin) 5,000 units SC 0600,1800 YOMAIRA; Protocol Last Admin: 03/25/18 05:50 Dose: 5,000 units Ipratropium [place] (Atrovent) 0.5 mg IH [id number] PRN; Protocol PRN Reason: Shortness of Breath Levothyroxine Sodium (Synthroid) 100 mcg PO 0600 YOMAIRA; Protocol Last Admin: 03/25/18 05:50 Dose: 100 mcg Metoprolol Tartrate (Lopressor) 25 mg PO 0800,1800 YOMAIRA; Protocol Last Admin: 03/25/18 07:59 Dose: Not Given Multivitamins (Thera Tab) 1 tab PO 0800 YOMAIRA Last Admin: 03/25/18 08:00 Dose: 1 tab Ondansetron HCl (Zofran Odt) 4 mg PO Q8H PRN; Protocol PRN Reason: Nausea/Vomiting Last Admin: 03/21/18 09:36 Dose: 4 mg Pantoprazole Sodium (Protonix Ec Tab) 40 mg PO 0600 YOMAIRA; Protocol Last Admin: 03/25/18 05:50 Dose: 40 mg Polyethylene Glycol (Miralax) 17 gm PO BID YOMAIRA Last Admin: 03/25/18 10:11 Dose: 17 gm Prednisone (Prednisone Tab) 10 mg PO 0800 YOMAIRA Stop: 03/27/18 08:01 Last Admin: 03/25/18 07:59 Dose: 10 mg Sodium Polystyrene Sulfonate (Kayexalate Susp) 30 gm PO ONCE ONE Stop: 03/25/18 17:16 Spironolactone (Aldactone) 25 mg PO BID [facility]; Protocol Last Admin: 03/24/18 17:16 Dose: 25 mg - Labs Labs: 03/25/18 05:45 03/25/18 14:15 Attending/Attestation - Attestation I have personally seen and examined this patient.: Yes I have fully participated in the care of the patient.: Yes I have reviewed all pertinent clinical information, including history, physical exam and plan: Yes Notes (Text): 03/25/18 17:16 Attending note; Patient seen and examined with resident. Patient is complaining of occasional wheezing and cough. Denies any fevers, chills. Tolerating diet well. complaining of constipation. Patient is on oxygen nasal cannula. Patient is a 77-year-old female past medical history significant for COPD, bradycardia status post pacemaker, diastolic CHF, HTN, hypothyroidism, hypercholesterolemia, and anxiety that presented to emergency room 03/15/18 wi th worsening shortness of breath and generalized weakness. Patient was treated and transferred to TCU for gait instability and generalized weakness. 1. Gait instability. Generalized Weakness. Continue PT/OT as tolerated. 2. Chronic COPD. Patient is on home oxygen . S/P acute COPD exacerbation. Con tinue prednisone taper. Continue Atrovent as needed. Continue O2 via nasal cannula as needed. 3. Cough and sore thoart. Continues to improve. Continue Cepacol as needed. Continue robitussin as needed. 4. Diastolic CHF. Chronic. Compensated. Continue Lasix, Lopressor and Aldactone. 5. History of sick sinus syndrome. S/P pacemaker. Continue with metoprolol. pacemaker interrogation done. 6. Hypertension. Continue metoprolol 7. Hypothyroidism. Continue synthroid 8. Constipation. Continue dulcolax,MiraLAX. 9. Hypercholesterolemia. Continue Lipitor 10. GI prophylaxis. Continue Protonix. 11.hyperkalemia; no EKG changes. Potassium supplementation on hold. Aldactone on hold. By mouth Kayexalate given. continue duoneb. repeat labs in a.m.. Upon discharge the patient will follow-up with PMD .
[2018-03-25] MEDS ORDERED: Sod Polystyrene Sulf 15 gm/60 ml Susp PO ONE ×2 (06:59→17:15)
[2018-03-25] MEDS: Albuterol-Ipratrop 3 mg / 0.5 (3 ml) UD IH SCH ×2 (07:09→14:32)
[2018-03-25] MEDS: Budesonide 0.5 mg/2 ml Inhal Susp UD IH SCH ×2 (07:09→19:40)
[2018-03-25] MEDS: Multivitamin Therapeutic Tab PO SCH (08:00)
[2018-03-25] MEDS: Cholecalciferol 1,000 INTLU TAB PO SCH (10:11)
[2018-03-25] MEDS: POLYETHYLENE GLYCOL 3350 17 GM/Dose PACKET PO SCH ×2 (10:11→18:00)
[2018-03-25] MEDS: Fluticasone Nasal 50 mcg/Spray NS SCH (10:11)
--- NOTE | 2018-03-25 11:09 | CARD ---
APPROVED REPORT Date of service: 03/25/2018 EKG Measurement Heart [id number] <Conclusion> Normal sinus rhythm Normal ECG
--- NOTE | 2018-03-25 13:53 | PN ---
DATE: 03/25/2018 LOCATION: Patient in room 327, bed 2. REASON FOR CONSULTATION: Followup with nonobstructive coronary artery disease, exacerbation of COPD, sick sinus syndrome status post pulmonary pacemaker insertion, diabetes mellitus, history of hypokalemia. SUBJECTIVE: Patient complained off and on cough and off and on shortness of breath which is slowly improving. Denies any palpitation or chest pain. PHYSICAL EXAMINATION: VITAL SIGNS: Blood pressure 110/60, respirations 18, pulse 61, temperature 97.7. HEENT: Head is normocephalic. Eyes: Pupils normal, conjunctivae normal. Nose and throat normal. NECK: JVP low. Carotid equal. THORAX: AP diameter normal. LUNGS: No significant rales. CARDIOVASCULAR: S1, S2. ABDOMEN: Soft, no tenderness. No organomegaly. Bowel sounds normal. EXTREMITIES: No clubbing, no cyanosis. LABORATORY DATA: WBC 14.7, hemoglobin 14.5, hematocrit 43.4, platelet 249. Sodium 132, potassium 5.5, BUN 47, creatinine 1.0, random sugar 148, calcium 10.3, phosphorous 3.3, magnesium 2.1. DIAGNOSES: Acute exacerbation of chronic obstructive pulmonary disease, pulmonary hypertension, nonobstructive coronary artery disease, hypertension, respiratory tract infection, deconditioning, status post permanent pacemaker insertion, history of hypokalemia, but today patient has hyperkalemia. PLAN: Patient's oral potassium has been discontinued and also patient's spironolactone has been put on hold and patient already received Kayexalate. We will repeat SMA-7, magnesium, phosphorus in the morning. In the meantime, we will continue other medications including heparin and furosemide. Furosemide is being given because patient has some mild swelling of legs without furosemide, atorvastatin 10 daily, metoprolol 25 twice daily, prednisone 10 mg daily, Protonix 40 daily, levothyroxine 100 mcg daily. Patient got in hand nebulizer therapy. We will repeat labs in the morning. We will follow with you. Continue physical therapy. Jefferson Solomon MD [facility] # [id number]
[2018-03-25 14:30] LABS: CALCIUM 9.9 mg/dL (8.4-10.5)
[2018-03-25] MEDS: Bisacodyl 5mg EC Tab PO PRN (14:37)
[2018-03-25] MEDS ORDERED: Albuterol-Ipratrop 3 mg / 0.5 (3 ml) UD IH PRN (17:17)
[2018-03-25] MEDS: guaiFENesin-Codeine 100-10mg/5ml Syrup (5 ml) UD PO PRN (22:17)
[2018-03-26] MEDS: Pantoprazole 40 mg EC Tab PO SCH (05:18)
[2018-03-26] MEDS: Levothyroxine 100 MCG TAB PO SCH (05:19)
[2018-03-26 06:42] LABS: BLOOD UREA NITROGEN 40 mg/dL (7-21); CALCIUM 9.5 mg/dL (8.4-10.5); GFR NON-AFRICAN AMERICAN 54
[2018-03-26] MEDS: Budesonide 0.5 mg/2 ml Inhal Susp UD IH SCH ×2 (07:12→19:43)
[2018-03-26] MEDS ORDERED: Magnesium Citrate Oral SOL (300 ml) PO STA (07:49)
[2018-03-26] MEDS: Bisacodyl 5mg EC Tab PO PRN (08:41)
[2018-03-26] MEDS: POLYETHYLENE GLYCOL 3350 17 GM/Dose PACKET PO SCH ×2 (11:35→17:37)
[2018-03-26] MEDS: Fluticasone Nasal 50 mcg/Spray NS SCH (11:35)
[2018-03-26] MEDS: Cholecalciferol 1,000 INTLU TAB PO SCH (11:36)
[2018-03-26] MEDS: Multivitamin Therapeutic Tab PO SCH (11:36)
--- NOTE | 2018-03-26 14:22 | PN ---
DATE: 03/26/2018 REASON FOR CONSULTATION: Follow up nonobstructive coronary artery disease, exacerbation of COPD, sick sinus syndrome with status post permanent pacemaker, diabetes, history of hypokalemia. SUBJECTIVE: The patient denies any chest pain or shortness of breath, or any palpitation. PHYSICAL EXAMINATION GENERAL: Not in apparent distress. VITAL SIGNS: Temperature afebrile, heart rate 94, blood pressure 134/65. HEENT: PERRLA. Extraocular muscles intact. NECK: Supple. No carotid bruits or thyromegaly. CHEST: Clear to auscultation. HEART: S1 and S2 regular. ABDOMEN: Soft. EXTREMITIES: Clubbing and cyanosis negative. LABORATORY DATA: WBC 14.3, hemoglobin 14.5, hematocrit 43.4, platelet count 249. Chemistry shows sodium 135, potassium 4.9, chloride 90, carbon dioxide 36, anion gap of 13, BUN of 40, and creatinine of 1.0. IMPRESSION: A 77-year-old female with a past medical history significant for acute tobacco abuse, essentially normal; nonobstructive coronary artery disease, status post cardiac catheterization; hypertension; respiratory tract infection; deconditioning of body; pulmonary hypertension; admitted initially to the telemetry, now she is transferred to the Transitional Care Unit; history of hypokalemia, patient was on high doses of potassium ; hyperkalemia, potassium was held, discussed. They will be taking care of that. The patient if remained stable, can be discharged home tomorrow. PLAN: Continue spironolactone upon discharge twice a day, but hold potassium that she is getting 3 times a day for a long time because of hypokalemia. Upon discharge, needs a blood work in a day or two. Follow up with Dr. Solomon to restart potassium. At that time, explained to the patient, explained to the taking care of this. The patient had pacemaker interrogation also done and was found to be normal. We will follow with you. Jefferson Levine MD cc: 1. Dr. Mo 2. Dr. Solomon
[2018-03-26 16:22] VITALS: RESP 20; TEMP 97.8; O2SAT 97
[2018-03-26] MEDS: guaiFENesin 200 mg/10 ml Syrup UD PO PRN (17:38)
[2018-03-27] MEDS: Pantoprazole 40 mg EC Tab PO SCH (05:54)
[2018-03-27] MEDS: Levothyroxine 100 MCG TAB PO SCH (05:55)
[2018-03-27] MEDS: guaiFENesin 200 mg/10 ml Syrup UD PO PRN (06:01)
[2018-03-27 07:19] LABS: BLOOD UREA NITROGEN 37 mg/dL (7-21); CALCIUM 9.3 mg/dL (8.4-10.5); GFR NON-AFRICAN AMERICAN > 60
[2018-03-27] MEDS: Budesonide 0.5 mg/2 ml Inhal Susp UD IH SCH (07:28)
[2018-03-27] MEDS: Multivitamin Therapeutic Tab PO SCH (08:06)
[2018-03-27 08:08] VITALS: PULSE 70
[2018-03-27] MEDS ORDERED: Potassium Chloride 20 mEq ER Tab PO ONE (09:29)
[2018-03-27] MEDS: Cholecalciferol 1,000 INTLU TAB PO SCH (10:30)
[2018-03-27] MEDS: Fluticasone Nasal 50 mcg/Spray NS SCH (10:30)
[2018-03-27] MEDS: POLYETHYLENE GLYCOL 3350 17 GM/Dose PACKET PO SCH (10:30)
[2018-03-27 14:10] VITALS: BP 121/71
[2018-03-27] MEDS ORDERED: Pneumococcal 23-Valent Vaccine IM ONE (14:35)
--- NOTE | 2018-03-27 15:12 | PN ---
DATE: 03/27/2018 REASON FOR CONSULTATION AND FOLLOWUP: Nonobstructive coronary artery disease, exacerbation of COPD, sick sinus syndrome, status post permanent pacemaker, deconditioning of the body, hypokalemia, diabetes. SUBJECTIVE: The patient denies any chest pain or shortness of breath, or any palpitation. PHYSICAL EXAMINATION: GENERAL: Not in apparent distress. VITAL SIGNS: Temperature afebrile, heart rate 79, blood pressure 119/57. HEENT: PERRLA. Extraocular muscles intact. NECK: Supple. No carotid bruits or thyromegaly. CHEST: Clear to auscultation. HEART: S1 and S2 regular. ABDOMEN: Soft. EXTREMITIES: Clubbing and cyanosis negative. LABORATORY DATA: Blood workup as follows; WBC 14.7, hemoglobin 14.5, hematocrit 43.4, platelet count 249. Chemistry shows sodium 133, potassium 3.8, chloride 92, carbon dioxide 36, anion gap of 9, BUN 37, and creatinine of 0.9. IMPRESSION: A 77-year-old female with a past medical history significant for sick sinus syndrome with status post permanent pacemaker recently status post battery change, history of active tobacco abuse, history of cardiac catheterization, normal coronaries, status post cardiac catheterization, admitted with respiratory tract infection, history of pulmonary hypertension, initially admitted to the acute medical floor, transferred to the transitional care unit to continue the care. The patient has a history of significant hypokalemia and high doses of potassium supplement 20 mEq p.o. three times a day as well as spironolactone. Multiple times potassium ran slow, but in transitional care unit was found to be elevated potassium and given Kayexalate, now the patient is on Kayexalate and off extra added dose of potassium. Today, the potassium is 3.8. We will give supplement of potassium 40 today and if remained stable, possibly discharge home. We will follow with you. Thank you Dr. Mo for providing us the opportunity in taking care of the patient, Cinthya Kimball, and advised the patient to repeat blood workup on Friday, Friday to assess whether the patient needs to resume back high doses of potassium. We will call our office and let for followup p.r.n. Jefferson Levine MD
--- NOTE | 2018-03-27 15:37 | CP.PCM.DIS ---
<Dennis Weaver - Last Filed: 03/27/18 15:30> Provider - Provider Date of Admission: 03/18/18 15:50 Attending physician: Glenis Mo MD Primary care physician: Jefferson Chacon MD Consults: 03/18/18 16:45 Cardiology Consult Routine Comment: Consulting Provider: Jefferson Chacon Consulting Physician: Jefferson Chacon Reason for Consult: CAD 03/18/18 19:04 Inpatient [employer] Core Measures Referral Routine Comment: copd Physician Instructions: Reason For Exam: eval Social Work Referral Routine Comment: dc plan Physician Instructions: Reason For Exam: eval Transition In Care/Readmission Reduction Routine Comment: copd/deconditioning Physician Instructions: Reason For Exam: evl Time Spent in preparation of Discharge (in minutes): 45 Diagnosis - Discharge Diagnosis (1) COPD (chronic obstructive pulmonary disease) Status: Chronic (2) COPD exacerbation Status: Acute Priority: High (3) Dyspnea Status: Chronic Hospital Course - Lab Results Lab Results: Most Recent Lab Values WBC 14.7 10^3/uL (4.5-11.0) H 03/25/18 05:45 RBC 4.64 10^6/uL (3.5-6.1) 03/25/18 05:45 Hgb 14.5 g/dL (12.0-16.0) 03/25/18 05:45 Hct 43.4 % (36.0-48.0) 03/25/18 05:45 MCV 93.5 fl (80.0-105.0) 03/25/18 05:45 MCH 31.3 pg (25.0-35.0) 03/25/18 05:45 MCHC 33.4 g/dl (31.0-37.0) 03/25/18 05:45 RDW 13.9 % (11.5-14.5) 03/25/18 05:45 Plt Count 249 10^3/uL (120.0-450.0) 03/25/18 05:45 MPV 10.2 fl (7.0-11.0) 03/25/18 05:45 Gran % 67.3 % (50.0-68.0) 03/21/18 06:00 Lymph % (Auto) 24.0 % (22.0-35.0) 03/21/18 06:00 [place] % (Auto) 8.4 % (1.0-6.0) H 03/21/18 06:00 Eos % (Auto) 0.2 % (1.5-5.0) L 03/21/18 06:00 Baso % (Auto) 0.1 % (0.0-3.0) 03/21/18 06:00 Gran # 8.47 (1.4-6.5) H 03/21/18 06:00 Lymph # (Auto) 3.0 (1.2-3.4) 03/21/18 06:00 [place] # (Auto) 1.1 (0.1-0.6) H 03/21/18 06:00 Eos # (Auto) 0.0 (0.0-0.7) 03/21/18 06:00 Baso # (Auto) 0.01 K/mm3 (0.0-2.0) 03/21/18 06:00 Sodium 133 mmol/L (132-148) 03/27/18 05:45 Potassium 3.8 mmol/L (3.6-5.0) 03/27/18 05:45 Chloride 92 mmol/L (98-107) L 03/27/18 05:45 Carbon Dioxide 36 mmol/L (21-33) H 03/27/18 05:45 Anion Gap 9 (10-20) L 03/27/18 05:45 BUN 37 mg/dL (7-21) H 03/27/18 05:45 Creatinine 0.9 mg/dl (0.7-1.2) 03/27/18 05:45 Est GFR ( Amer) > 60 03/27/18 05:45 Est GFR (Non-Af Amer) > 60 03/27/18 05:45 Random Glucose 115 mg/dL (70-110) H 03/27/18 05:45 Calcium 9.3 mg/dL (8.4-10.5) 03/27/18 05:45 Phosphorus 3.9 mg/dL (2.5-4.5) 03/26/18 05:45 Magnesium 1.8 mg/dL (1.7-2.2) 03/26/18 05:45 Total Bilirubin 0.6 mg/dL (0.2-1.3) 03/24/18 06:00 AST 24 U/L (14-36) 03/24/18 06:00 ALT 27 U/L (7-56) 03/24/18 06:00 Alkaline Phosphatase 86 U/L (38-126) 03/24/18 06:00 Total Protein 7.5 g/dL (5.8-8.3) 03/24/18 06:00 Albumin 4.2 g/dL (3.0-4.8) 03/24/18 06:00 Globulin 3.3 gm/dL 03/24/18 06:00 Albumin/Globulin Ratio 1.3 (1.1-1.8) 03/24/18 06:00 - Hospital Course Hospital Course: PGY1 Hospital Course and Discharge Summary for Dr. Mo Patient is a 77-year-old Female with past medical history of COPD (60 pack year history of smoking), bradycardia status-post pacemaker, diastolic Congestive Heart Failure with estimated EF of 62.5% based on 06/11/17 cardiac catheterization, atrial fibrillation, GERD, anxiety, and depression who presented on 03/15 to the [facility] ED with a chief complaint of worsening shortness of breath and generalized weakness for a week as well as productive cough with white phlegm. Of note, patient has multiple admissions history for COPD exacerbation in the past. Was given steroids and nebulizers at home but is noncompliant with respiratory therapy. Patient is on home oxygen (2L). Patient received solumedrol 60mg IV in the ED. Please see Patient's chart for more detailed summary. Patient was subsequently admitted to telemetry for COPD exacerbation. Patient was treated with duonebs, pulmicort, and solumedrol 40mg IV daily. On day 3, duonebs was discontinued due to patient complaint of "shakiness." Patient was started on Atrovan, mucinex for cough, and cepacol. Prednisone was switched to PO. Please see patient's chart for details. Patient also has history of CHF and presented with chest pain. Serial troponins were obtained and were negative. Patient was treated with ASA, lasix 40mg PO BID and metoprolol. EKG was obtained and was paced at 79bpm. Cardiology was consulted and recommended continued aggressive treatment for COPD, and the addition of lactulose. Per Cardiology, patient's CVS status is stable. Patient also complained of chronic lower extremity pain. Thus, lower extremity ultrasound was obtained 03/16 and was negative for DVT bilaterally. Physical Therapy recommended TCU for rehabiliaation. Patient was medically optimized, and was subsequently transferred to TCU 03/18/18. Please see patient's chart for details. While in TCU, Patient complained of constipation and was found to have hyperkalemia (K+=5.5) which was likely due to home meds (Patient was restarted on potassium as prescribed by PMD). EKG was obtained and was NS with no abnormalities. Patient was treated with Kayexalate, miralax, and was given prune juice to encourage bowel movement. Potassium supplement was discontinued. Hyperkalemia resolved. On day of discharge to home, Patient was had no new complaints overnight. Patient states her cough improved. Constipation was resolved. Patient was hemodynamicall stable and medically optimized for discharge to home. Consultants agreed. Patient was discharged with the following discharge instructions, which were explained to patient both verbally and written. Patient understands the instructions and agrees to the instructions. Please see chart for details. Discharge Medications: * ASA 81mg PO Daily * LIpitor 10mg PO DIN * Vitamin D3 1000 unit Tab PO Daily * Esomeprazole Magnesium 20mg PO Daily * Fluticasone/ Salmeterol 500/50 14 Puff IH Daily * Synthroid 100mcg PO Daily * Lopressor 25mg PO QAM * Aldactone 25mg PO BID * Spiriva Respimat 2.5mcg IH Daily Discharge Instructions: Please follow up with your primary care doctor, Dr. Chacon, within 1-2 days of being discharged from the hospital. Please discuss all medical issues and any new medications that you have been started on during this admission. Please follow up with your radiation control worker, Dr. Chacon, within 3-5 days of being discharged from the hospital. Please discuss all medical issues and any new medications that you have been started on during this admission. PLEASE STOP TAKING POTASSIUM SUPPLEMENTATION TABLETS UNTIL DR. CHACON TELLS YOU TO RESTART THIS MEDICATION. Please take all other previously prescribed medications as prescribed by your primary care doctor. Should your symptoms return, please seek emergency medical attention immediately. Patient seen and case discussed in detail with Dr. Chepe Weaver PGY1 Discharge Exam - Additional Findings Additional findings: - Constitutional Appears: No Acute Distress - Head Exam Head Exam: ATRAUMATIC, NORMAL INSPECTION, NORMOCEPHALIC - Eye Exam Eye Exam: Normal appearance, PERRL Pupil Exam: NORMAL ACCOMODATION - ENT Exam ENT Exam: Mucous Membranes Moist - Respiratory Exam Respiratory Exam: Clear to Ausculation Bilateral, NORMAL BREATHING PATTERN. absent: Rales, Rhonchi, Wheezes - Cardiovascular Exam Cardiovascular Exam: REGULAR RHYTHM, +S1, +S2. absent: Gallop, Rubs, Murmur - GI/Abdominal Exam GI & Abdominal Exam: Soft, Normal Bowel Sounds. absent: Rigid, Tenderness, Mass, Rebound - Extremities Exam Extremities Exam: Pedal Edema bilateral. absent: Calf Tenderness - Neurological Exam Neurological Exam: Alert, Awake, CN II-XII Intact - Psychiatric Exam Psychiatric exam: Normal Affect, Normal Mood - Skin Skin Exam: Dry, Warm Discharge Plan - Follow Up Plan Condition: GOOD Disposition: HOME/ ROUTINE Instructions: Preventing Falls in the Older Adult, Constipation, Adult (DC), Exacerbation of COPD (DC), Heart Failure (DC), Heart Failure (GEN), Pacemaker (DC), Pacemaker (GEN), Pulmonary Edema (DC), Pulmonary Edema (GEN), Ascites (DC), Ascites (GEN) Additional Instructions: Please follow up with your primary care doctor, Dr. Chacon, within 1-2 days of being discharged from the hospital. Please discuss all medical issues and any new medications that you have been started on during this admission. Please follow up with your radiation control worker, Dr. Chacon, within 3-5 days of being discharged from the hospital. Please discuss all medical issues and any new med ications that you have been started on during this admission. PLEASE STOP TAKING POTASSIUM SUPPLEMENTATION TABLETS UNTIL DR. CHACON TELLS YOU TO RESTART THIS MEDICATION. Please take all other previously prescribed medications as prescribed by your primary care doctor. Should your symptoms return, please seek emergency medical attention immediately. Referrals: Jefferson Chacon MD [Primary Care Provider] - <Glenis Mo - Last Filed: 03/27/18 16:45> Provider - Provider Date of Admission: 03/18/18 15:50 Attending physician: Glenis Mo MD Primary care physician: Jefferson Chacon MD Consults: 03/18/18 16:45 Cardiology Consult Routine Comment: Consulting Provider: Jefferson Chacon Consulting Physician: Jefferson Chacon Reason for Consult: CAD 03/18/18 19:04 Inpatient [employer] Core Measures Referral Routine Comment: copd Physician Instructions: Reason For Exam: eval Social Work Referral Routine Comment: dc plan Physician Instructions: Reason For Exam: eval Transition In Care/Readmission Reduction Routine Comment: copd/deconditioning Physician Instructions: Reason For Exam: evl Hospital Course - Lab Results Lab Results: Most Recent Lab Values WBC 14.7 10^3/uL (4.5-11.0) H 03/25/18 05:45 RBC 4.64 10^6/uL (3.5-6.1) 03/25/18 05:45 Hgb 14.5 g/dL (12.0-16.0) 03/25/18 05:45 Hct 43.4 % (36.0-48.0) 03/25/18 05:45 MCV 93.5 fl (80.0-105.0) 03/25/18 05:45 MCH 31.3 pg (25.0-35.0) 03/25/18 05:45 MCHC 33.4 g/dl (31.0-37.0) 03/25/18 05:45 RDW 13.9 % (11.5-14.5) 03/25/18 05:45 Plt Count 249 10^3/uL (120.0-450.0) 03/25/18 05:45 MPV 10.2 fl (7.0-11.0) 03/25/18 05:45 Gran % 67.3 % (50.0-68.0) 03/21/18 06:00 Lymph % (Auto) 24.0 % (22.0-35.0) 03/21/18 06:00 [place] % (Auto) 8.4 % (1.0-6.0) H 03/21/18 06:00 Eos % (Auto) 0.2 % (1.5-5.0) L 03/21/18 06:00 Baso % (Auto) 0.1 % (0.0-3.0) 03/21/18 06:00 Gran # 8.47 (1.4-6.5) H 03/21/18 06:00 Lymph # (Auto) 3.0 (1.2-3.4) 03/21/18 06:00 [place] # (Auto) 1.1 (0.1-0.6) H 03/21/18 06:00 Eos # (Auto) 0.0 (0.0-0.7) 03/21/18 06:00 Baso # (Auto) 0.01 K/mm3 (0.0-2.0) 03/21/18 06:00 Sodium 133 mmol/L (132-148) 03/27/18 05:45 Potassium 3.8 mmol/L (3.6-5.0) 03/27/18 05:45 Chloride 92 mmol/L (98-107) L 03/27/18 05:45 Carbon Dioxide 36 mmol/L (21-33) H 03/27/18 05:45 Anion Gap 9 (10-20) L 03/27/18 05:45 BUN 37 mg/dL (7-21) H 03/27/18 05:45 Creatinine 0.9 mg/dl (0.7-1.2) 03/27/18 05:45 Est GFR ( Amer) > 60 03/27/18 05:45 Est GFR (Non-Af Amer) > 60 03/27/18 05:45 Random Glucose 115 mg/dL (70-110) H 03/27/18 05:45 Calcium 9.3 mg/dL (8.4-10.5) 03/27/18 05:45 Phosphorus 3.9 mg/dL (2.5-4.5) 03/26/18 05:45 Magnesium 1.8 mg/dL (1.7-2.2) 03/26/18 05:45 Total Bilirubin 0.6 mg/dL (0.2-1.3) 03/24/18 06:00 AST 24 U/L (14-36) 03/24/18 06:00 ALT 27 U/L (7-56) 03/24/18 06:00 Alkaline Phosphatase 86 U/L (38-126) 03/24/18 06:00 Total Protein 7.5 g/dL (5.8-8.3) 03/24/18 06:00 Albumin 4.2 g/dL (3.0-4.8) 03/24/18 06:00 Globulin 3.3 gm/dL 03/24/18 06:00 Albumin/Globulin Ratio 1.3 (1.1-1.8) 03/24/18 06:00 Attending/Attestation - Attestation I have personally seen and examined this patient.: Yes I have fully participated in the care of the patient.: Yes I have reviewed all pertinent clinical information, including history, physical exam and plan: Yes Notes (Text): 03/27/18 16:42 Attending note; Patient seen and examined with resident. Denies any fevers, chills. Tolerating diet well. constipation resolved. Patient is on oxygen nasal cannula. Patient is a 77-year-old female past medical history significant for COPD, bradycardia status post pacemaker, diastolic CHF, HTN, hypothyroidism, hypercholesterolemia, and anxiety that presented to emergency room 03/15/18 with worsening shortness of breath and generalized weakness. Patient was treated and transferred to TCU for gait instability and generalized weakness. 1. Gait instability. Generalized Weakness. Improved after therapy. 2. Chronic COPD. Patient is on home oxygen . S/P acute COPD exacerbation. Continue prednisone taper. Continue Atrovent as needed. Continue O2 via nasal cannula as needed. 3. Cough and sore thoart. Continues to improve. Continue Cepacol as needed. Continue robitussin as needed. 4. Diastolic CHF. Chronic. Compensated. Continue Lasix, Lopressor and Aldactone. 5. History of sick sinus syndrome. S/P pacemaker. Continue with metoprolol. pacemaker interrogation done. 6. Hypertension. Continue metoprolol 7. Hypothyroidism. Continue synthroid 8. Constipation. Continue dulcolax,MiraLAX. 9. Hypercholesterolemia. Continue Lipitor 10. GI prophylaxis. Continue Protonix. 11.hyperkalemia; resolved. follow up potassium level in [address] chacon's office. discharge home today. Upon discharge the patient will follow-up with PMD .
== END 2018-03-27 15:30 | disposition home or self-care (01) | DRG 945 ==
LOC: TRCU 15:50
PROVIDERS: ADMIT Hospitalist; ATTEND Internal Medicine
PROC: F07Z9FZ Gait Training/Functional Ambulation Treatment using Assistive, Adaptive, Supportive or Protective Equipment (ICD-10-PCS; principal; 2018-03-19)
PROC: F08Z4FZ Home Management Treatment using Assistive, Adaptive, Supportive or Protective Equipment (ICD-10-PCS; 2018-03-19)
PROC: 3E0F7GC Introduction of Other Therapeutic Substance into Respiratory Tract, Via Natural or Artificial Opening (ICD-10-PCS; 2018-03-19)
DX: R53.1 Weakness (principal); J44.1 Chronic obstructive pulmonary disease with (acute) exacerbation; J96.10 Chronic respiratory failure, unspecified whether with hypoxia or hypercapnia; I50.32 Chronic diastolic (congestive) heart failure; I13.0 Hypertensive heart and chronic kidney disease with heart failure and stage 1 through stage 4 chronic kidney disease, or unspecified chronic kidney disease; R26.9 Unspecified abnormalities of gait and mobility; K21.9 Gastro-esophageal reflux disease without esophagitis; Z99.81 Dependence on supplemental oxygen; I25.10 Atherosclerotic heart disease of native coronary artery without angina pectoris; N18.3 Chronic kidney disease, stage 3 (moderate); E11.22 Type 2 diabetes mellitus with diabetic chronic kidney disease; E03.9 Hypothyroidism, unspecified; K59.00 Constipation, unspecified; I27.20 Pulmonary hypertension, unspecified; I48.91 Unspecified atrial fibrillation; E78.00 Pure hypercholesterolemia, unspecified; E87.5 Hyperkalemia; E55.9 Vitamin D deficiency, unspecified; F41.9 Anxiety disorder, unspecified; I08.3 Combined rheumatic disorders of mitral, aortic and tricuspid valves; Z87.891 Personal history of nicotine dependence; Z91.19 Patient's noncompliance with other medical treatment and regimen; Z95.0 Presence of cardiac pacemaker

== ENCOUNTER 2018-04-11 11:52 | Inpatient (IN) | payer MEDICARE, OTHER ==
[2018-04-11 12:26] VITALS: BMI 38.8
[2018-04-11] MEDS ORDERED: Albuterol-Ipratrop 3 mg / 0.5 (3 ml) UD IH STA (12:36)
--- NOTE | 2018-04-11 13:15 | ED PDOC ---
Arrival/HPI - General Chief Complaint: Weakness/Neurological Deficit Time Seen by Provider: 04/11/18 12:19 Historian: Patient - History of Present Illness Narrative History of Present Illness (Text): 04/11/18 13:10 77 year old female, whose past medical history includes COPD, CHF, and hypothyroidism, presents to the emergency department complaining of nausea and near-syncope sensation for the past 3 days. Patient states she does have 2 L home O2 (no change in dosage). She reports also experiencing abdominal pain yesterday, productive cough starting a few days ago (some phlegm green/yellow), and intermittent chest pain. Patient's last bowel movement was a few days ago, which is normal according to patient. Patient denies any fever, chills, or any other complaints at this time. PMD: Dr. Bear Time/Duration: < week (3 days) Symptom Course: Unchanged Severity Level: Moderate Activities at Onset: Rest Context: Home Past Medical History - Provider Review Nursing Documentation Reviewed: Yes - Travel History Have you recently traveled outside [place] w/in the past 3 mons?: No - Infectious Disease Hx of Infectious Diseases: None - Tetanus Immunization Tetanus Immunization: Unknown - Cardiac Hx Congestive Heart Failure: Yes - Pulmonary Hx Chronic Obstructive Pulmonary Disease (COPD): Yes - Neurological Hx Neurological Disorder: Yes - HEENT Hx HEENT Disorder: Yes Hx Deafness: Yes - Renal Hx Renal Disorder: No - Endocrine/Metabolic Hx Hypothyroidism: Yes - Hematological/Oncological Hx Blood Disorders: No - Integumentary Hx Dermatological Disorder: Yes (skin tags) Other/Comment: 11-14-17 BILATERAL LE CELLULITIS-REDDENED,ERYTHEMA.DRY SKIN,EDEMA +2.TOP OF FEET +2 PITTING EDEMA. - Musculoskeletal/Rheumatological Hx Falls: Yes (past) - Gastrointestinal Hx Gastrointestinal Disorders: (reflux/pancreatitis/colon polyps) - Genitourinary/Gynecological Hx Reproductive Disorders: No - Psychiatric Hx Psychophysiologic Disorder: Yes Hx Anxiety: Yes Hx Depression: Yes Hx Substance Use: No - Surgical History Hx Cardiac Catheterization: Yes Hx Orthopedic Surgery: Yes (Right knee surgery) Other/Comment: carpal tunnel right hand. pacemaker - Anesthesia Hx Anesthesia: Yes Hx Anesthesia Reactions: No Hx Malignant Hyperthermia: No - Suicidal Assessment Feels Threatened In Home Enviroment: No Family/Social History - Physician Review Nursing Documentation Reviewed: Yes Family/Social History: No Known Family HX Smoking Status: Former Smoker Hx Alcohol Use: No Hx Substance Use: No Allergies/Home Meds Allergies/Adverse Reactions: Allergies levofloxacin [From Levaquin] Allergy (Severe, Verified 11/14/17 14:27) ANAPHYLAXIS Home Medications: Home Meds Medication Instructions Recorded Confirmed Aspirin [Ecotrin] 81 mg PO DAILY 09/01/15 03/18/18 Atorvastatin [Lipitor] 10 mg PO DIN 09/01/15 03/18/18 Cholecalciferol (Vitamin D3) 1,000 iu PO DAILY 09/01/15 03/18/18 [Vitamin D3] Levothyroxine [Synthroid] 100 mcg PO DAILY 09/01/15 03/18/18 Esomeprazole Magnesium [Nexium 20 mg PO DAILY 03/15/18 03/18/18 24Hr] Fluticasone/Salmeterol 500/50 0 puff IH DAILY 03/15/18 03/18/18 [Advair Diskus 500/50] Metoprolol Tartrate [Lopressor] 25 mg PO QAM 03/15/18 03/18/18 Spironolactone [Aldactone] 25 mg PO BID 03/15/18 03/18/18 Tiotropium [place] [Spiriva 2.5 mcg IH DAILY 03/15/18 03/18/18 Respimat] Review of Systems - Physician Review All systems were reviewed & negative as marked: Yes - Review of Systems Constitutional: absent: Fevers, Night Sweats Respiratory: Cough (with yellow/green phlegm) Cardiovascular: Chest Pain (slightly). absent: Syncope (near-syncope sensation) Gastrointestinal: Nausea, Vomiting Physical Exam Vital Signs Reviewed: Yes Vital Signs Temp Pulse Resp BP Pulse Ox 04/11/18 11:52 98.2 F 70 16 96/53 L 91 L Temperature: Afebrile Blood Pressure: Normal Pulse: Regular Respiratory Rate: Normal Appearance: Positive for: Well-Appearing, Non-Toxic, Comfortable Pain Distress: None Mental Status: Positive for: Alert and Oriented X 3 - Systems Exam Head: Present: Atraumatic, Normocephalic Pupils: Present: PERRL Extroacular Muscles: Present: EOMI Conjunctiva: Present: Normal Mouth: Present: Dry Neck: Present: Normal Range of Motion Respiratory/Chest: Present: Wheezes, Decreased Breath Sounds. No: Clear to Auscultation, Accessory Muscle Use, Retracting, Tachypneic Cardiovascular: Present: Regular Rate and Rhythm, Normal S1, S2. No: Murmurs Abdomen: No: Tenderness, Distention, Peritoneal Signs Back: Present: Normal Inspection Upper Extremity: Present: Normal Inspection. No: Cyanosis, Edema Lower Extremity: Present: Normal Inspection. No: Edema Neurological: Present: GCS=15, CN II-XII Intact, Speech Normal Skin: Present: Warm, Dry, Normal Color. No: Rashes Psychiatric: Present: Alert, Oriented x 3, Normal Insight, Normal Concentration Medical Decision Making ED Course and Treatment: 04/11/18 13:12 Impression: 77 year old female with nausea and near-syncope. Physical exam shows dry mucous membranes and diminished breath sounds Plan: -- EKG -- Chest X-ray -- Labs -- Arterial Blood Gas -- Venous Blood Gas -- Duoneb -- Nasal Cannula O2 -- Urinalysis -- Blood Culture -- SOLU-Medrol -- Reassess and disposition Progress Notes: 04/11/18 13:12 Labs reviewed with no evidence of leukocytosis. ABG reveals mild hypercapnea. Potassium WNL. Pending rapid flu. 04/11/18 15:[address] Kam(medical service) who accepts the patient onto her service. - Lab Interpretations Lab Results: 04/11/18 13:00 04/11/18 13:00 Lab Results 04/11/18 13:30: Urine Color Light yellow, Urine Appearance Clear, Urine pH 7.0, Ur Specific [place] 1.010, Urine Protein Negative, Urine Glucose (UA) Negative, Urine Ketones Negative, Urine Blood Negative, Urine Nitrate Negative, Urine Bilirubin Negative, Urine Urobilinogen 0.2, Ur Leukocyte Esterase Negative 04/11/18 13:20: pCO2 46 H, pO2 98.0, HCO3 33.5 H, ABG pH 7.47 H, ABG Total CO2 34.9 H, ABG O2 Saturation 99.7 H, ABG O2 Content 19.5, ABG Base Excess 8.5 H, ABG Hemoglobin 14.4, ABG Carboxyhemoglobin 2.6 H, POC ABG HHb (Measured) 0.3, ABG Methemoglobin 1.0, ABG O2 Capacity 19.6, Hgb O2 Saturation 96.1, FiO2 28.0 04/11/18 13:00: PT 12.2, INR 1.07, APTT 31.0 04/11/18 13:00: Sodium 133, Chloride 90 L, Potassium 4.4, Carbon Dioxide 35 H, Anion Gap 13, BUN 29 H, Creatinine 1.1, Est GFR ( Amer) 58, Est GFR (Non- Af Amer) 48, Random Glucose 134 H, Calcium 10.0, Magnesium 1.6 L, Total Bilirubin 1.1, AST 27, ALT 31, Alkaline Phosphatase 88, Lactate Dehydrogenase 437, Total Creatine Kinase 37, Troponin I < 0.01, NT-Pro-B Natriuret Pep 200, Total Protein 7.7, Albumin 4.4, Globulin 3.3, Albumin/Globulin Ratio 1.3 04/11/18 13:00: pO2 53, VBG pH 7.43, VBG pCO2 55.0, VBG HCO3 36.5 H, VBG Total CO2 38.2 H, VBG O2 Sat (Calc) 91.6 H, VBG Base Excess 10.1 H, VBG Potassium 4.3, Sodium 134.0, Chloride 92.0 L, Glucose 130 H, Lactate 1.1, FiO2 21.0, Venous Blood Potassium 4.3 04/11/18 13:00: WBC 7.5 D, RBC 4.63, Hgb 14.7, Hct 43.3, MCV 93.5, MCH 31.7, MCHC 33.9, RDW 14.3, Plt Count 198, MPV 9.7, Gran % 86.1 H, Lymph % (Auto) 5.5 L , [place] % (Auto) 8.1 H, Eos % (Auto) 0.3 L, Baso % (Auto) 0.0, Gran # 6.46, Lymph # (Auto) 0.4 L, [place] # (Auto) 0.6, Eos # (Auto) 0.0, Baso # (Auto) 0.00 I have reviewed the lab results: Yes - RAD Interpretation Radiology Orders: 04/11/18 12:37 CHEST PORTABLE [RAD] Stat - EKG Interpretation EKG Interpretation (Text): 04/11/18 12:10 EKG: Ordered, reviewed, and independently interpreted the EKG. Rate : 70 BPM Rhythm : Paced Interpretation : No ST-segment elevations or depressions, no T-wave inversions, normal intervals. Comparison : No previous EKG for comparison. Interpreted by ED Physician: Yes - Medication Orders Current Medication Orders: Discontinued Medications Albuterol/Ipratropium (Duoneb 3 Mg/0.5 Mg (3 Ml) Ud) 3 ml IH STAT STA Stop: 04/11/18 12:37 Methylprednisolone (Solu-Medrol) 125 mg IVP STAT STA Stop: 04/11/18 12:39 - Scribe Statement The provider has reviewed the documentation as recorded by the Blayne Aj Provider Scribe Attestation: All medical record entries made by the Blayne were at my direction and personally dictated by me. I have reviewed the chart and agree that the record accurately reflects my personal performance of the history, physical exam, medical decision making, and the department course for this patient. I have also personally directed, reviewed, and agree with the discharge instructions and disposition. Disposition/Present on Arrival - Present on Arrival Any Indicators Present on Arrival: No History of DVT/PE: No History of Uncontrolled Diabetes: No Urinary Catheter: No History of Decub. Ulcer: No History Surgical Site Infection Following: None - Disposition Have Diagnosis and Disposition been Completed?: Yes Diagnosis: Bronchitis Disposition: HOSPITALIZED Disposition Time: 15:14 Patient Plan: Admission Patient Problems: Current Active Problems Problem Status Onset Bronchitis Acute Condition: GUARDED
[2018-04-11 13:27] LABS: EOS % 0.3 % (1.5-5.0); GRAN # 6.46 (1.4-6.5); GRAN % 86.1 % (50.0-68.0); HEMOGLOBIN 14.7 g/dL (12.0-16.0); LYMPH # 0.4 (1.2-3.4); LYMPH % 5.5 % (22.0-35.0); MEAN CELL VOLUME 93.5 fl (80.0-105.0); MEAN CORPUSCULAR HEMOGLOBIN 31.7 pg (25.0-35.0); MEAN CORPUSCULAR HGB CONC 33.9 g/dl (31.0-37.0); MEAN PLATELET VOLUME 9.7 fl (7.0-11.0); MONO # 0.6 (0.1-0.6); MONO % 8.1 % (1.0-6.0); RBC 4.63 10^6/uL (3.5-6.1); RED CELL DISTRIBUTION WIDTH 14.3 % (11.5-14.5); WHITE BLOOD COUNT 7.5 10^3/uL (4.5-11.0)
[2018-04-11 13:29] LABS: VENOUS BLOOD GAS BASE EXCESS 10.1 mmol/L (0.0-2.0); VENOUS BLOOD GAS PO2 53 mm/Hg (30-55); VENOUS BLOOD PH 7.43 (7.32-7.43)
[2018-04-11 13:32] LABS: ARTERIAL BLOOD GAS HCO3 33.5 mmol/L (21-28); ARTERIAL BLOOD GAS HEMOGLOBIN 14.4 g/dL (11.7-17.4); ARTERIAL BLOOD GAS O2 CAPACITY 19.6 mL/dl (16-24); ARTERIAL BLOOD GAS O2 CONTENT 19.5 ML/dl (15-23); ARTERIAL BLOOD GAS O2 SAT 99.7 % (95-98); ARTERIAL BLOOD GAS PCO2 46 mm/Hg (35-45); ARTERIAL BLOOD GAS PH 7.47 (7.35-7.45); ARTERIAL BLOOD GAS TCO2 34.9 mmol.L (22-28)
[2018-04-11 13:36] LABS: INR 1.07; PROTHROMBIN TIME 12.2 SECONDS (9.4-12.5)
[2018-04-11 13:39] LABS: ALB/GLOB RATIO 1.3 (1.1-1.8); ALBUMIN 4.4 g/dL (3.0-4.8); ALT/SGPT 31 U/L (7-56); AST/SGOT 27 U/L (14-36); BLOOD UREA NITROGEN 29 mg/dL (7-21); GFR NON-AFRICAN AMERICAN 48
[2018-04-11] MEDS ORDERED: Albuterol 0.083% Inhal Sol (2.5 mg/3 mL) UD INH STA (13:39)
[2018-04-11 13:50] LABS: B-TYPE NATRIURETIC PEPTIDE 200 pg/mL (0-450); TROPONIN I < 0.01 ng/mL
[2018-04-11 13:58] LABS: URINE BILIRUBIN NEGATIVE (NEGATIVE); URINE BLOOD NEGATIVE (NEGATIVE); URINE GLUCOSE (UA) NEGATIVE (NEGATIVE); URINE LEUKOCYTE ESTERASE NEGATIVE Leu/uL (NEGATIVE); URINE PROTEIN NEGATIVE mg/dL (<30 mg/dL); URINE UROBILINOGEN 0.2 E.U./dL (<1 E.U./dL)
[2018-04-11 13:59] LABS: URINE APPEARANCE CLEAR (CLEAR); URINE COLOR LIGHT YELLOW (YELLOW)
--- NOTE | 2018-04-11 15:13 | CARD ---
APPROVED REPORT Date of service: 04/11/2018 EKG Measurement Heart [id number] <Conclusion> Electronic atrial pacemaker Nonspecific T wave abnormality Abnormal ECG
--- NOTE | 2018-04-11 16:16 | RAD ---
HISTORY: sob COMPARISON: Chest x-ray performed 03/15/18 TECHNIQUE: Chest, one view. FINDINGS: Examination limited by habitus. LUNGS: No focal consolidation. Please note that chest x-ray has limited sensitivity for the detection of pulmonary masses. PLEURA: No significant pleural effusion identified. No definite pneumothorax . CARDIOVASCULAR: Dual lead left-sided pacemaker. Borderline cardiomegaly. Dense atherosclerotic calcification of the aortic knob. OSSEOUS STRUCTURES: Degenerative changes. VISUALIZED UPPER ABDOMEN: Unremarkable. OTHER FINDINGS: None. IMPRESSION: No focal consolidation. Dual lead left-sided pacemaker. Borderline cardiomegaly. Dense atherosclerotic calcifications of the aortic knob.
[2018-04-11] MEDS ORDERED: Magnesium Oxide 400 mg Tab UD PO STA (20:25)
[2018-04-11] MEDS: MethylPREDNISolone 40 mg Vial IVP SCH (21:51)
[2018-04-11] MEDS ORDERED: Influenza Vaccine 60 mcg/0.5 mL SYR (4YR UP) IM ONE (22:59)
[2018-04-11] MEDS ORDERED: Pneumococcal 23-Valent Vaccine IM ONE (22:59)
[2018-04-12] MEDS: Albuterol-Ipratrop 3 mg / 0.5 (3 ml) UD IH SCH ×4 (01:27→20:07)
[2018-04-12] MEDS: Pantoprazole 40 mg EC Tab PO SCH (08:23)
[2018-04-12] MEDS: Levothyroxine 100 MCG TAB PO SCH (08:23)
[2018-04-12] MEDS: Budesonide 0.5 mg/2 ml Inhal Susp UD IH SCH ×2 (09:02→20:08)
[2018-04-12] MEDS: Arformoterol 15 mcg/2 ml Inh Sol IH SCH ×2 (09:02→20:07)
[2018-04-12] MEDS: MethylPREDNISolone 40 mg Vial IVP SCH ×2 (09:32→21:07)
[2018-04-12] MEDS: Tiotropium 18 mcg Cap For Inhalation IH SCH (09:32)
[2018-04-12] MEDS: cefTRIAXone 1 gm 1 GM/100 ML BAG IVPB SCH (09:32)
[2018-04-12] MEDS: Cholecalciferol 1,000 INTLU TAB PO SCH (09:32)
[2018-04-12] MEDS ORDERED: Fluticasone-Salmeterol 500-50mcg Diskus IH SCH (10:00)
[2018-04-12] MEDS: Azithromycin 500MG/NS 250ml 500 MG/250 ML BAG IVPB SCH (10:56)
--- NOTE | 2018-04-12 23:51 | CON ---
DATE: 04/12/2018 Cardiology consultation (for Dr. Levine). HISTORY OF PRESENT ILLNESS: The patient is a 77-year-old woman who presents with a little dizziness over the past several days. The patient's past medical history includes severe COPD secondary to smoking which she stopped 3 years ago, history of CHF and hypothyroidism. The patient currently is without symptoms. She denies chest pain, denies shortness of breath. Her past medical history also includes a history of nonobstructive CAD and status post pacemaker for sick sinus syndrome. In addition, she suffers from diabetes mellitus. SOCIAL HISTORY: The patient stopped smoking 3 years ago. Last cardiac evaluation earlier this year revealed a normal ejection fraction of 64% with mild aortic stenosis. REVIEW OF SYSTEMS: 14-point review of systems is reviewed in detail. No active cardiac symptoms at this time. PHYSICAL EXAMINATION VITAL SIGNS: Blood pressure 100/57, heart rate in the 70s. NECK: Negative JVD. LUNGS: Short systolic ejection murmur. EXTREMITIES: Without edema. LABORATORY DATA: EKG shows no acute changes. Hemoglobin is 14.7. Chemistries: BUN is 13 with a creatinine of 1.1. Troponin is negative x1. IMPRESSION 1. Chronic obstructive pulmonary disease. 2. History of nicotine addiction. 3. Nonobstructive coronary artery disease. 4. History of pacemaker placement. 5. Previous echocardiogram reveals good left ventricular function. Given these findings, we will interrogate the pacemaker in the morning to see whether there are any arrhythmias associated with her transient dizziness. In the morning, we will transfer the care back to Dr. Levine. Valentin Zelaya MD
[2018-04-13] MEDS: Albuterol-Ipratrop 3 mg / 0.5 (3 ml) UD IH SCH ×4 (01:38→19:58)
--- NOTE | 2018-04-13 01:38 | PN ---
DATE: 04/12/2018 SUBJECTIVE: Patient was seen and examined at bedside on 04/12/2018, looking comfortable. No fever. No chills. No hematuria. No hematochezia. No dizziness. No rhinitis. No headache. PHYSICAL EXAMINATION: VITAL SIGNS: Temperature 97.7, pulse 91, blood pressure 113/58, respiratory rate 20. HEENT: Head normocephalic, atraumatic. Eyes PERRLA. Extraocular muscles intact. Conjunctivae clear. Nose patent. Mucous membrane moist. NECK: Supple. No carotid bruit. No JVD or thyromegaly. CHEST: Bilaterally symmetrical. HEART: S1 and S2 positive. LUNGS: Clear to auscultation. ABDOMEN: Soft. Positive bowel sounds. No organomegaly. EXTREMITIES: No edema. No cyanosis. NEUROLOGIC: The patient is awake and alert. Moving all 4 extremities. No focal deficits. MEDICATIONS: Aldactone, Brovana, Ecotrin, Lipitor, Lopressor, Pepcid, pantoprazole, Pulmicort, Rocephin, Solu-Medrol, Spiriva, Synthroid, Tylenol, vitamin D, Xanax, Zithromax. LABORATORY DATA: White blood cell 7.5,hemoglobin 14.7, hematocrit 43.3, and platelets 198. Sodium 133, potassium 4.4, BUN 28, creatinine 1.1. Glucose 134. Magnesium 1.6. ASSESSMENT AND PLAN: Ms. Cinthya Kimball is 77-year-old lady with hypochloremia, hyperglycemia, and hypomagnesemia. Influenza type B is negative. Seen by the press shop supervisor, Dr. Valentin Zelaya. Patient has chronic obstructive pulmonary disease, history of nicotine addiction, nonobstructive coronary artery disease, history of pacemaker placement. Previous echocardiography reveals good left ventricular function. Given these findings, we will interrogate the pacemaker in the morning to see whenever there are arrhythmias associated with the transient dizziness. Patient seen by the press shop supervisor, Valentin Zelaya. Portable chest x-ray reviewed by me. Repeat labs. We will follow up. Guillermina Kam MD [facility]
[2018-04-13] MEDS ORDERED: Benzocaine/Menthol (Cepacol) Lozenge MT PRN (06:54)
[2018-04-13] MEDS: Pantoprazole 40 mg EC Tab PO SCH (07:31)
[2018-04-13 07:42] LABS: HDL CHOLESTEROL 56 mg/dL (29-60)
[2018-04-13] MEDS: Budesonide 0.5 mg/2 ml Inhal Susp UD IH SCH ×2 (07:50→19:58)
[2018-04-13] MEDS: Arformoterol 15 mcg/2 ml Inh Sol IH SCH ×2 (07:50→19:58)
[2018-04-13 07:53] LABS: LDL CHOLESTEROL 81 mg/dL (0-129)
[2018-04-13] MEDS: Tiotropium 18 mcg Cap For Inhalation IH SCH (09:27)
[2018-04-13] MEDS: Cholecalciferol 1,000 INTLU TAB PO SCH (09:27)
[2018-04-13] MEDS: cefTRIAXone 1 gm 1 GM/100 ML BAG IVPB SCH (09:28)
[2018-04-13] MEDS: Levothyroxine 100 MCG TAB PO SCH (09:28)
--- NOTE | 2018-04-13 09:34 | CARD ---
APPROVED REPORT Date of service: 04/13/2018 EKG Measurement Heart [id number] <Conclusion> Electronic atrial pacemaker: 100 % A. Paced IRBBB NSSTW changes T wave inversion V 1 - 3 No change
--- NOTE | 2018-04-13 09:36 | CP.PCM.PN ---
Subjective - Date & Time of Evaluation Date of Evaluation: 04/13/18 Time of Evaluation: 06:45 - Subjective Subjective: awake, alert, complaints of sore throat Reason for consultation and follow up: Cardiac evaluation of dizziness, PPM,admitted for bronchitis Seen and examined by me and Dr. Levine Objective - Vital Signs/Intake and Output Vital Signs (last 24 hours): Temp Pulse Resp BP Pulse Ox 97.7 F 69 20 164/61 H 99 04/13/18 06:00 04/13/18 06:00 04/13/18 06:00 04/13/18 06:00 04/13/18 06:00 Intake and Output: 04/13/18 04/13/18 06:59 18:59 Intake Total 240 Balance 240 - Medications Medications: Current Medications Acetaminophen (Tylenol 325mg Tab) 650 mg PO Q4H PRN PRN Reason: pain fever Last Admin: 04/11/18 23:18 Dose: 650 mg Albuterol/Ipratropium (Duoneb 3 Mg/0.5 Mg (3 Ml) Ud) 3 ml IH [id number] [facility] Last Admin: 04/13/18 07:50 Dose: 3 ml Alprazolam (Xanax) 0.25 mg PO BID PRN; Protocol PRN Reason: Anxiety Stop: 04/20/18 10:01 Last Admin: 04/12/18 23:24 Dose: 0.25 mg Arformoterol Tartrate (Brovana) 15 mcg IH [id number] [facility] Last Admin: 04/13/18 07:50 Dose: 15 mcg Aspirin (Ecotrin) 81 mg PO DAILY [facility] Last Admin: 04/12/18 09:31 Dose: 81 mg Atorvastatin Calcium (Lipitor) 10 mg PO DIN [facility] Last Admin: 04/12/18 17:08 Dose: 10 mg Benzocaine/Menthol (Cepacol Sore Throat) 1 doc MT Q2H PRN PRN Reason: Sore Throat Last Admin: 04/13/18 07:09 Dose: 1 doc Budesonide (Pulmicort Respules) 1 mg IH [id number] [facility] Last Admin: 04/13/18 07:50 Dose: 1 mg Cholecalciferol (Vitamin D) 1,000 intlu PO DAILY [facility] Last Admin: 04/12/18 09:32 Dose: 1,000 intlu Famotidine (Pepcid) 40 mg PO HS [facility] Last Admin: 04/12/18 21:07 Dose: 40 mg Ceftriaxone Sodium (Rocephin 1 Gram Ivpb) 1 gm in 100 mls @ 100 mls/hr IVPB DAILY [facility]; Protocol Last Admin: 04/12/18 09:32 Dose: 100 mls/hr Azithromycin (Zithromax 500mg In Ns) 500 mg in 250 mls @ 250 mls/hr IVPB DAILY [facility]; Protocol Last Admin: 04/12/18 10:56 Dose: 250 mls/hr Levothyroxine Sodium (Synthroid) 100 mcg PO DAILY [facility] Last Admin: 04/12/18 08:23 Dose: 100 mcg Methylprednisolone (Solu-Medrol) 40 mg IVP Q12 [facility] Last Admin: 04/12/18 21:07 Dose: 40 mg Metoprolol Tartrate (Lopressor) 25 mg PO QAM [facility] Last Admin: 04/12/18 09:31 Dose: 25 mg Pantoprazole Sodium (Protonix Ec Tab) 40 mg PO ACB [facility] Last Admin: 04/13/18 07:31 Dose: 40 mg Spironolactone (Aldactone) 25 mg PO BID [facility] Last Admin: 04/12/18 17:08 Dose: 25 mg Tiotropium [place] (Spiriva) 18 mcg IH DAILY [facility] Last Admin: 04/12/18 09:32 Dose: 18 mcg - Labs Labs: 04/11/18 13:00 04/11/18 13:00 PT 12.2 SECONDS (9.4-12.5) 04/11/18 13:00 INR 1.07 04/11/18 13:00 APTT 31.0 Seconds (25.1-36.5) 04/11/18 13:00 - Constitutional Appears: Non-toxic, No Acute Distress - Head Exam Head Exam: NORMAL INSPECTION, NORMOCEPHALIC - Eye Exam Eye Exam: Normal appearance Pupil Exam: NORMAL ACCOMODATION - ENT Exam ENT Exam: Mucous Membranes Moist, Normal Exam - Respiratory Exam Respiratory Exam: Decreased Breath Sounds, Clear to Ausculation Bilateral, NORMAL BREATHING PATTERN - Cardiovascular Exam Cardiovascular Exam: +S1, +S2 Additional comments: Atrially paced PPM- 90's - GI/Abdominal Exam GI & Abdominal Exam: Soft, Normal Bowel Sounds - Extremities Exam Extremities Exam: Full ROM Additional comments: 2+edema - Neurological Exam Neurological Exam: Alert, Awake, Oriented x3 - Psychiatric Exam Psychiatric exam: Normal Affect, Normal Mood - Skin Skin Exam: Dry, Normal Color, Warm Assessment and Plan - Assessment and Plan (Free Text) Assessment: A 77 year old female, who came in to the ER due to nausea and dizziness, near syncope for the past 3 days prior to admission. History of CHF,COPD on home oxygen, hypothyroidism,deafness, cellulitis,pancreatitis,anxiety,depression,right knee surgery,PPM. Denies chest pain or shortness of breath but complaints of sore throat. Admitted for bronchitis. Cath on 06/11/17 showed normal coronaries, LVEF 60-65%. Will order Echo to evaluate valves. Rule out orthostatic hypotension Plan: Denies chest pain or shortness of breath or dizziness Complaints of sore throat Cephacol PRN Orthostatic vital signs Will order to interrogate pacemaker to rule out arrythmias Continue current treatment Continue current medications Will follow up Plan and treatment discussed with Dr. Levine
[2018-04-13] MEDS: MethylPREDNISolone 40 mg Vial IVP SCH ×2 (10:38→21:29)
[2018-04-13] MEDS: Azithromycin 500MG/NS 250ml 500 MG/250 ML BAG IVPB SCH (10:38)
--- NOTE | 2018-04-13 11:56 | CARD ---
APPROVED REPORT Date of service: 04/13/2018 EKG Measurement Heart [id number] <Conclusion> Electronic atrial pacemaker: 100 % A. Paced IRBBB NSSTW changes T wave inversion V 1 - 3 No change
--- NOTE | 2018-04-13 14:44 | CP.PCM.APN ---
Subjective - Date & Time of Evaluation Date of Evaluation: 04/13/18 Time of Evaluation: 10:00 - Subjective Subjective: pt seen at bedside having new IV inserted by Rn TIFFANY negative Review of Systems - Review of Systems All systems: reviewed and no additional remarkable complaints except Objective - Vital Signs/Intake and Output Vital Signs (last 24 hours): Temp Pulse Resp BP Pulse Ox 98.1 F 66 18 106/60 99 04/13/18 12:00 04/13/18 12:00 04/13/18 12:00 04/13/18 12:00 04/13/18 06:00 Intake and Output: 04/13/18 04/13/18 06:59 18:59 Intake Total 240 Balance 240 - Medications Medications: Current Medications Acetaminophen (Tylenol 325mg Tab) 650 mg PO Q4H PRN PRN Reason: pain fever Last Admin: 04/11/18 23:18 Dose: 650 mg Albuterol/Ipratropium (Duoneb 3 Mg/0.5 Mg (3 Ml) Ud) 3 ml IH [id number] [facility] Last Admin: 04/13/18 13:53 Dose: 3 ml Alprazolam (Xanax) 0.25 mg PO BID PRN; Protocol PRN Reason: Anxiety Stop: 04/20/18 10:01 Last Admin: 04/12/18 23:24 Dose: 0.25 mg Arformoterol Tartrate (Brovana) 15 mcg IH [id number] [facility] Last Admin: 04/13/18 07:50 Dose: 15 mcg Aspirin (Ecotrin) 81 mg PO DAILY [facility] Last Admin: 04/13/18 09:26 Dose: 81 mg Atorvastatin Calcium (Lipitor) 10 mg PO DIN [facility] Last Admin: 04/12/18 17:08 Dose: 10 mg Benzocaine/Menthol (Cepacol Sore Throat) 1 doc MT Q2H PRN PRN Reason: Sore Throat Last Admin: 04/13/18 07:09 Dose: 1 doc Benzonatate (Tessalon Perles) 100 mg PO TID [facility] Last Admin: 04/13/18 13:33 Dose: 100 mg Budesonide (Pulmicort Respules) 1 mg IH [id number] [facility] Last Admin: 04/13/18 07:50 Dose: 1 mg Cefpodoxime Proxetil (Vantin) 200 mg PO Q12 [facility] Stop: 04/17/18 10:01 Cholecalciferol (Vitamin D) 1,000 intlu PO DAILY [facility] Last Admin: 04/13/18 09:27 Dose: 1,000 intlu Enoxaparin Sodium (Lovenox) 40 mg SC DAILY [facility]; Protocol Famotidine (Pepcid) 40 mg PO HS [facility] Last Admin: 04/12/18 21:07 Dose: 40 mg Azithromycin (Zithromax 500mg In Ns) 500 mg in 250 mls @ 250 mls/hr IVPB DAILY [facility]; Protocol Last Admin: 04/13/18 10:38 Dose: 250 mls/hr Ibuprofen (Motrin Tab) 400 mg PO Q6H [facility] Stop: 04/14/18 01:01 Last Admin: 04/13/18 13:33 Dose: 400 mg Levothyroxine Sodium (Synthroid) 100 mcg PO DAILY [facility] Last Admin: 04/13/18 09:28 Dose: 100 mcg Methylprednisolone (Solu-Medrol) 40 mg IVP Q12 [facility] Last Admin: 04/13/18 10:38 Dose: 40 mg Metoprolol Tartrate (Lopressor) 25 mg PO QAM [facility] Last Admin: 04/13/18 09:26 Dose: 25 mg Pantoprazole Sodium (Protonix Ec Tab) 40 mg PO ACB [facility] Last Admin: 04/13/18 07:31 Dose: 40 mg Pregabalin (Lyrica) 25 mg PO BID [facility] Spironolactone (Aldactone) 25 mg PO BID [facility] Last Admin: 04/13/18 09:28 Dose: 25 mg Tiotropium [place] (Spiriva) 18 mcg IH DAILY [facility] Last Admin: 04/13/18 09:27 Dose: 18 mcg - Labs Labs: 04/11/18 13:00 04/11/18 13:00 PT 12.2 SECONDS (9.4-12.5) 04/11/18 13:00 INR 1.07 04/11/18 13:00 APTT 31.0 Seconds (25.1-36.5) 04/11/18 13:00 - Constitutional Appears: Well, Non-toxic - Head Exam Head Exam: NORMAL INSPECTION, NORMOCEPHALIC - Eye Exam Pupil Exam: NORMAL ACCOMODATION, PERRL - ENT Exam ENT Exam: Normal Exam - Respiratory Exam Respiratory Exam: Decreased Breath Sounds, NORMAL BREATHING PATTERN - Cardiovascular Exam Cardiovascular Exam: +S1, +S2 - Neurological Exam Neurological Exam: Alert, Oriented x3 - Psychiatric Exam Psychiatric exam: Normal Affect, Normal Mood - Skin Skin Exam: Dry, Intact, Normal Color Assessment and Plan - Assessment and Plan (Free Text) Plan: Microbiology 04/11/18 13:30 Blood Culture - Preliminary Blood-Venous NO GROWTH AFTER 48 HOURS 04/11/18 13:00 Blood Culture - Preliminary Blood-Venous NO GROWTH AFTER 48 HOURS 77 yr old with pmh sig for severe copd, chf, hypothyriodism, smoker, sss s/p ppm admitted with waekness, nausea and abd pain as well as intermittent cp now undergoing pulmonary and cardiology evaluation and treatment for acute bronchitis with IV steroids and IV antibiotics PPM interrogated pt for echocardiogram will follow pzoey mares report and follow clinical status.
--- NOTE | 2018-04-13 17:47 | CARD ---
APPROVED REPORT Date of service: 04/13/2018 EXAM: Two-dimensional and M-mode echocardiogram with Doppler and color Doppler. INDICATION LVFX 2D DIMENSIONS Left Atrium (2D)3.9 (1.6-4.0cm)IVSd1.0 (0.7-1.1cm) LVDd4.2 (3.9-5.9cm)PWd1.1 (0.7-1.1cm) LVDs2.6 (2.5-4.0cm)FS (%) 36.9 % LVEF (%)67.1 (>50%) M-Mode DIMENSIONS Aortic Root3.10 (2.2-3.7cm)Aortic Cusp Exc.1.80 (1.5-2.0cm) Aortic Valve AoV Peak Bulkwbia595.0cm/sAoV VTI42.7cmAO Peak GR.21mmHg LVOT Peak Arpghttt862.0cm/sLVOT VTI33.20cmAO Mean GR.9mmHg AI P 1/2 Oklr990cn Mitral Valve MV E Xtbbqurz15.7cm/sMV A Zhazqrvv05.6cm/sE/A ratio0.8 TDI Lateral E' Peak V9.16cm/sMedial E' Peak V7.70cm/sE/Lateral E'7.9 E/Medial E'9.4 Pulmonary Valve PV Peak Uvuxzbct258.0cm/sPV Peak Grad.8mmHg Tricuspid Valve TR Peak Azzuzhtx371zx/sRAP ZIQJKOTU93zeEtSP Peak Gr.21mmHg [id number] LEFT VENTRICLE The left ventricle is normal size. There is normal left ventricular wall thickness. The left ventricular function is normal.EF-65% There is normal LV segmental wall motion. Transmitral Doppler flow pattern is Grade III-reversible restrictive diastolic dysfunction. No left ventricle thrombus noted on this study. There is no ventricular septal defect visualized. There is no left ventricular aneurysm. There is no mass noted in the left ventricle. RIGHT VENTRICLE The right ventricle is normal size. There is normal right ventricular wall thickness. The right ventricular systolic function is normal. There is a pacemaker lead in the right ventricle. ATRIA The left atrium size is normal. The right atrium size is normal. There is a catheter/pacemaker lead seen in the right atrium. The interatrial septum is intact with no evidence for an atrial septal defect. AORTIC VALVE The aortic valve is calcified but opens well. Left Coronary Cusp is heavily calcified. There is moderate aortic regurgitation. Aortic Sclerosis Vs mild As There is no aortic valvular vegetation. MITRAL VALVE The mitral valve is thickened but opens well. Mitral regurgitation is mild. There is no mitral valve stenosis. There is no evidence of mitral valve prolapse. TRICUSPID VALVE The tricuspid valve leaflets are thickened , but open well. There is mild tricuspid regurgitation.RVSP-31 mmof Hg. There is no tricuspid valve stenosis. There is no tricuspid valve prolapse or vegetation. PULMONIC VALVE The pulmonary valve is normal in structure. There is no pulmonic valvular stenosis. GREAT VESSELS The aortic root is normal in size. The ascending aorta is normal in size. The pulmonary artery is normal. The IVC is normal in size and collapses >50% with inspiration. PERICARDIAL EFFUSION There is no pleural effusion. There is a trace pericardial effusion. <Conclusion> Normal Chamber Size. EF-65% The aortic valve is calcified but opens well. Left Coronary Cusp is heavily calcified. There is moderate aortic regurgitation. Mitral regurgitation is mild. There is mild tricuspid regurgitation.RVSP-31 mmof Hg. The IVC is normal in size and collapses >50% with inspiration. There is a trace pericardial effusion. There is a pacemaker lead in the right ventricle. Aortic Sclerosis Vs mild . When compared from previous Echo 06/09/2017, aortic valve appears similar except AR is getting more.
--- NOTE | 2018-04-13 19:27 | CON ---
DATE: 04/13/2018 PULMONARY CONSULTATION REFERRING PHYSICIAN: Guillermina Kam MD REASON FOR CONSULT: COPD, cough. HISTORY OF PRESENT ILLNESS: This is a 77-year-old female with past medical history significant for chronic obstructive pulmonary disease, CHF, hypothyroidism, history of nicotine addiction, coronary artery disease, and history of pacemaker placement, who presented to the ER due to nausea, dizziness, near syncope, complaining of cough and shortness of breath. Echocardiogram from 05/2017 shows ejection fraction of 64, RVSP 35. PAST MEDICAL HISTORY: CHF, COPD, has oxygen at home, hypothyroidism, cellulitis, pancreatitis, anxiety, depression, right knee surgery, and pacemaker placement. ALLERGIES: LEVAQUIN. SOCIAL HISTORY: Former smoker, quit 3 years ago. No ETOH abuse. No illicit drug use. FAMILY HISTORY: No cardiopulmonary history reported. MEDICATIONS: Tylenol 650 mg every 4 hours p.r.n. for pain and fever, DuoNeb 3 mL inhalation every 6 hours, Xanax 0.25 mg twice a day p.r.n., Brovana 15 mcg every 12 hours, aspirin 81 mg daily, Lipitor 10 mg , Zithromax 500 mg daily, Cepacol lozenges every 2 hours p.r.n., Pulmicort 1 mg inhalation every 12 hours, Vantin 200 mg every 12 hours, vitamin D 1000 units daily, Pepcid 40 mg at bedtime, Synthroid 100 mcg daily, Solu-Medrol 40 mg every 12 hours, Lopressor 25 mg in the morning, Protonix 40 mg in the evening, spironolactone 25 mg twice a day, and Spiriva 18 mcg inhalation daily. REVIEW OF SYSTEMS: No headache, rhinitis, chest pain, abdominal pain, nausea, vomiting, diarrhea reported. The patient does report having cough, burning sensation in her throat, shortness of breath. The patient reports that she snores, has daytime tired, sleepy, bilateral lower extremity some swelling reported. PHYSICAL EXAMINATION: VITAL SIGNS: Blood pressure 104/54, pulse 88, temperature 97.7, and oxygen saturation 99%. GENERAL: No acute distress. HEENT: Moist mucous membranes. Crowded airway. Mallampati score of 4. NECK: Supple. No JVD. RESPIRATORY: Clear to auscultations bilaterally. Some decreased breath sounds at the bases. CARDIOVASCULAR: S1 and S2 audible. ABDOMEN: Soft and nontender. No distention. Positive bowel sounds. No organomegaly. EXTREMITIES: Positive bilateral lower extremity edema. NEUROLOGIC: Awake, alert and verbal. Follows commands. LABORATORY DATA: Reviewed. WBC 7.5, RBC 4.63, hemoglobin 14.7, hematocrit 43.3, and platelets 198. PT 12.2, INR 1.07, and APTT 31. PCO2 of 46, oxygen 98, HCO3 of 33.5. ABG; pH of 7.47. Sodium 133, potassium 4.4, chloride 90, carbon dioxide 35, anion gap 13, BUN 29, creatinine 1.1, GFR 48, random glucose 134, and hemoglobin A1c 6.6. Calcium 10, magnesium 1.6, total bilirubin 1.1. AST 25, ALT 31, alkaline phosphatase 88, and lactate dehydrogenase 437. Total creatinine kinase 37. Troponin less than 0.01. ProBNP 200, total protein 7.7, albumin 4.4, globulin 3.3, and albumin-globulin ratio 1.3. Triglycerides 63, cholesterol 161, LDL 81, and HDL 56. Influenza type A and B negative. DIAGNOSTIC DATA: Electrocardiogram shows electronic atrial pacemaker paced. Chest x-ray shows no focal consolidation, dual lead left-sided pacemaker, borderline cardiomegaly, dense atherosclerotic calcification of the aortic nob. IMPRESSION AND PLAN: Chronic obstructive pulmonary disease, congestive heart failure, hypothyroidism, pancreatitis, anxiety, depression, cellulitis, pacemaker placement, hyperglycemia, hypomagnesemia, influenza type A and B negative, coronary artery disease, and history of nicotine addiction. We will order swab for respiratory syncytial virus. Viral exposure may have triggered the patient's chronic lung disease. Symptoms could also be related to gastroesophageal reflux disease. We will start Lyrica 25 mg twice a day for 2 days and then we assess. We will start Tessalon Perles. Continue inhaled bronchodilators. Gastric prophylaxis, deep venous thrombosis prophylaxis. We do suspect sleep apnea syndrome in this patient; recommend sleep study and full pulmonary function test as outpatient. Continue antibiotic therapy. This patient was seen and examined with Dr. Simmons. Discussed assessment and plan as described above. Thank you for this consult and we will follow with you. Dileep Prudence, [employer]LECT[employer] Jefferson Simmons MD [facility] # [id number]
[2018-04-14] MEDS: Albuterol-Ipratrop 3 mg / 0.5 (3 ml) UD IH SCH ×4 (01:22→15:42)
--- NOTE | 2018-04-14 01:43 | PN ---
DATE: 04/13/2018 SUBJECTIVE: The patient is a 77-year-old female. The patient was seen and examined at the bedside on 04/13/2018. Cough is better. Shortness of breath is better. No fever. No chills. No hematuria or hematochezia. No headaches. No dizziness. PHYSICAL EXAMINATION: VITAL SIGNS: Temperature 98.1, pulse 66, respiratory rate 18, blood pressure 106/60, and pulse oximetry 99. HEENT: Head is normocephalic and atraumatic. Eyes; PERRLA. Extraocular muscles intact. Conjunctivae clear. Nose patent. Mucous membrane moist. NECK: Supple. No carotid bruits, JVD or thyromegaly. CHEST: Bilaterally symmetrical. LUNGS: Mild wheezing bilaterally. HEART: S1 and S2 positive. ABDOMEN: Soft. Bowel sounds present. No organomegaly. EXTREMITIES: No edema. No cyanosis. NEUROLOGIC: The patient is awake and alert. Follows simple commands. MEDICATIONS: Tylenol, alprazolam, Brovana, aspirin, Lipitor, Tessalon, vitamin D, Lovenox, Pepcid, Zithromax, Solu-Medrol tapering dose, and metoprolol. LABORATORY DATA: White blood cell 7.5, hemoglobin 14.7, hematocrit 43.3, and platelets 198. Sodium 133, potassium 4.4, BUN 29, creatinine 1.1, and glucose 134. ASSESSMENT AND PLAN: Ms. Cinthya Kimball is a 77-year-old lady with hypochloremia, hyperglycemia, severe chronic obstructive pulmonary disease, congestive heart failure, hypothyroidism, history of smoking, came to [facility] for weakness, nausea, abdominal pain, intermittent chest pain, seen by the cyber defense forensics analyst and bias cutter. Getting IV steroid and IV antibiotics for acute bronchitis. Permanent pacemaker , Waiting for echocardiography. Appreciated Argenis, nurse practitioner's input. Seen by Dr. Simmons and nurse practitioner of Dr. Levine. The patient had oxygen dependency at home. History of pancreatitis, anxiety, depression, cellulitis. electrolyte imbalance. Continue inhaled bronchodilators. Gastrointestinal prophylaxis and deep venous thrombosis prophylaxes. Sleep apnea syndrome. We will follow up. Guillermina Kam MD MTDD
[2018-04-14 07:14] LABS: HEMOGLOBIN 12.3 g/dL (12.0-16.0); MEAN CORPUSCULAR HEMOGLOBIN 30.7 pg (25.0-35.0); MEAN PLATELET VOLUME 9.9 fl (7.0-11.0); RBC 4.01 10^6/uL (3.5-6.1); RED CELL DISTRIBUTION WIDTH 14.3 % (11.5-14.5); WHITE BLOOD COUNT 8.5 10^3/uL (4.5-11.0)
--- NOTE | 2018-04-14 07:20 | CP.PCM.PN ---
Subjective - Date & Time of Evaluation Date of Evaluation: 04/14/18 Time of Evaluation: 06:30 - Subjective Subjective: awake, alert, complaints of sore throat but better than yesterday Reason for consultation and follow up: Cardiac evaluation of dizziness, PPM, admitted for bronchitis Seen and examined by me and Dr. Levine Objective - Vital Signs/Intake and Output Vital Signs (last 24 hours): Temp Pulse Resp BP Pulse Ox 98.1 F 89 18 109/69 95 04/13/18 22:00 04/13/18 22:00 04/13/18 22:00 04/13/18 22:00 04/13/18 22:00 - Medications Medications: Current Medications Acetaminophen (Tylenol 325mg Tab) 650 mg PO Q4H PRN PRN Reason: pain fever Last Admin: 04/11/18 23:18 Dose: 650 mg Albuterol/Ipratropium (Duoneb 3 Mg/0.5 Mg (3 Ml) Ud) 3 ml IH [id number] [facility] Last Admin: 04/14/18 01:22 Dose: Not Given Alprazolam (Xanax) 0.25 mg PO BID PRN; Protocol PRN Reason: Anxiety Stop: 04/20/18 10:01 Last Admin: 04/13/18 21:28 Dose: 0.25 mg Arformoterol Tartrate (Brovana) 15 mcg IH [id number] [facility] Last Admin: 04/13/18 19:58 Dose: 15 mcg Aspirin (Ecotrin) 81 mg PO DAILY [facility] Last Admin: 04/13/18 09:26 Dose: 81 mg Atorvastatin Calcium (Lipitor) 10 mg PO DIN [facility] Last Admin: 04/13/18 17:11 Dose: 10 mg Benzocaine/Menthol (Cepacol Sore Throat) 1 doc MT Q2H PRN PRN Reason: Sore Throat Last Admin: 04/13/18 07:09 Dose: 1 doc Benzonatate (Tessalon Perles) 100 mg PO TID [facility] Last Admin: 04/13/18 17:11 Dose: 100 mg Budesonide (Pulmicort Respules) 1 mg IH [id number] [facility] Last Admin: 04/13/18 19:58 Dose: 1 mg Cefpodoxime Proxetil (Vantin) 200 mg PO Q12 [facility] Stop: 04/17/18 10:01 Cholecalciferol (Vitamin D) 1,000 intlu PO DAILY [facility] Last Admin: 04/13/18 09:27 Dose: 1,000 intlu Enoxaparin Sodium (Lovenox) 40 mg SC DAILY [facility]; Protocol Famotidine (Pepcid) 40 mg PO HS [facility] Last Admin: 04/13/18 21:28 Dose: 40 mg Azithromycin (Zithromax 500mg In Ns) 500 mg in 250 mls @ 250 mls/hr IVPB DAILY [facility]; Protocol Last Admin: 04/13/18 10:38 Dose: 250 mls/hr Levothyroxine Sodium (Synthroid) 100 mcg PO DAILY [facility] Last Admin: 04/13/18 09:28 Dose: 100 mcg Methylprednisolone (Solu-Medrol) 40 mg IVP Q12 [facility] Last Admin: 04/13/18 21:29 Dose: 40 mg Metoprolol Tartrate (Lopressor) 25 mg PO QAM [facility] Last Admin: 04/13/18 09:26 Dose: 25 mg Pantoprazole Sodium (Protonix Ec Tab) 40 mg PO ACB [facility] Last Admin: 04/13/18 07:31 Dose: 40 mg Pregabalin (Lyrica) 25 mg PO BID [facility] Last Admin: 04/13/18 17:11 Dose: 25 mg Spironolactone (Aldactone) 25 mg PO BID [facility] Last Admin: 04/13/18 17:11 Dose: 25 mg Tiotropium [place] (Spiriva) 18 mcg IH DAILY [facility] Last Admin: 04/13/18 09:27 Dose: 18 mcg - Labs Labs: 04/11/18 13:00 04/11/18 13:00 PT 12.2 SECONDS (9.4-12.5) 04/11/18 13:00 INR 1.07 04/11/18 13:00 APTT 31.0 Seconds (25.1-36.5) 04/11/18 13:00 - Constitutional Appears: Non-toxic, No Acute Distress - Head Exam Head Exam: NORMAL INSPECTION, NORMOCEPHALIC - Eye Exam Eye Exam: Normal appearance Pupil Exam: NORMAL ACCOMODATION - ENT Exam ENT Exam: Mucous Membranes Moist, Normal Exam - Respiratory Exam Respiratory Exam: Decreased Breath Sounds, Clear to Ausculation Bilateral, NORMAL BREATHING PATTERN - Cardiovascular Exam Cardiovascular Exam: +S1, +S2 Additional comments: PPM atrially pacing - GI/Abdominal Exam GI & Abdominal Exam: Soft, Normal Bowel Sounds - Extremities Exam Extremities Exam: Full ROM Additional comments: 1-2+edema - Neurological Exam Neurological Exam: Alert, Awake, Oriented x3 - Psychiatric Exam Psychiatric exam: Normal Affect, Normal Mood - Skin Skin Exam: Dry, Normal Color, Warm Assessment and Plan - Assessment and Plan (Free Text) Assessment: A 77 year old female, who came in to the ER due to nausea and dizziness, near syncope for the past 3 days prior to admission. History of CHF,COPD on home oxygen, hypothyroidism,deafness, cellulitis,pancreatit is,anxiety,depression,right knee surgery,PPM. Denies chest pain or shortness of breath but complaints of sore throat. Admitted for bronchitis. Cath on 06/11/17 showed normal coronaries, LVEF 60-65%. Will order Echo to evaluate valves. Rule out orthostatic hypotension. Echo done-Normal chambers, LVEF 65%,aortic valve calcified but opens well,moderate aortic regurgitation,Mild MR/TR, RVSP 31 mmHg, trace pericardial effusion, pacemaker lead in right ventricle, compared to previous echo, AR is getting more. Plan: Echo done-Normal chambers, LVEF 65%,aortic valve calcified but opens well, moderate aortic regurgitation,Mild MR/TR, RVSP 31 mmHg, trace pericardial effusion, pacemaker lead in right ventricle, compared to previous echo, AR is getting more. PPM interrogated, no arrythmias, 100% capture, atrially pacing 70's Denies chest pain or shortness of breath Complaints of sore throat but better than yesterday Continue Cephacol PRN On ASA 81 mg daily,Lipitor 10 mg daily,Synthroid 100 mcg daily, Lopressor 25 mg daily,Aldactone 25 mg BID, Solumedrol 40 mg IV every 12 hours. Continue antibiotics as ordered Continue current treatment Continue current medications Will follow up Plan and treatment discussed with Dr. Levine
[2018-04-14 07:48] LABS: CALCIUM 9.8 mg/dL (8.4-10.5)
[2018-04-14] MEDS: Budesonide 0.5 mg/2 ml Inhal Susp UD IH SCH (08:15)
[2018-04-14] MEDS: Arformoterol 15 mcg/2 ml Inh Sol IH SCH (08:15)
--- NOTE | 2018-04-14 08:53 | PN ---
DATE: 04/13/2018 REASON FOR CONSULTATION AND FOLLOWUP: Cardiac evaluation, dizziness, back pain, chest pain, and tenderness. This note is in addition to dictated by nurse practitioner, Patsy Varela APN. SUBJECTIVE: In summary, this 77-year-old female complain of back pain, chest pain, it is very tender, history of cardiac catheterization 06/11/2017 with normal coronaries, ejection . The patient this morning had a pacemaker interrogation done that shows dual chamber Adapta pacemaker, all parameters looks okay. No evidence of any arrhythmia noted in pacemaker interrogation, 1.5 years. Normal functioning pacemaker. RECOMMENDATIONS: We will start some NSAID, ibuprofen 400 mg three times a day, first dose now and we will discontinue telemetry. Physical therapy and possible discharge plan. We will get echo to assess LV function. We will follow with you. We will get TSH also tomorrow. Thank you Dr. Kam for providing us the opportunity in taking care of the patient, Cinthya Kimball. Jefferson Levine MD
[2018-04-14] MEDS: Pantoprazole 40 mg EC Tab PO SCH (09:01)
[2018-04-14] MEDS ORDERED: Cefpodoxime (Vantin) 200 mg Tab PO SCH (10:00)
[2018-04-14] MEDS ORDERED: Enoxaparin 40 mg Syringe SC SCH (10:00)
--- NOTE | 2018-04-14 10:49 | CP.PCM.APN ---
Subjective - Subjective Subjective: pt seen and examined at bedside pt offers no complaints Review of Systems - Constitutional Constitutional: absent: As Per HPI, Anorexia, Chills, Daytime Sleepiness, Excessive Sweating, Fatigue, Fever, Frequent Falls, Headache, Increased Appetite, Lethargy, Malaise, Night Sweats, Snoring, Sleep Apnea, Weight Gain, Weight Loss, Weakness, Other Objective - Vital Signs/Intake and Output Vital Signs (last 24 hours): Temp Pulse Resp BP Pulse Ox 98 F 83 19 110/51 L 97 04/14/18 08:43 04/14/18 08:43 04/14/18 08:43 04/14/18 08:43 04/14/18 08:43 - Medications Medications: Current Medications Acetaminophen (Tylenol 325mg Tab) 650 mg PO Q4H PRN PRN Reason: pain fever Last Admin: 04/11/18 23:18 Dose: 650 mg Albuterol/Ipratropium (Duoneb 3 Mg/0.5 Mg (3 Ml) Ud) 3 ml IH [id number] [facility] Last Admin: 04/14/18 08:15 Dose: 3 ml Alprazolam (Xanax) 0.25 mg PO BID PRN; Protocol PRN Reason: Anxiety Stop: 04/20/18 10:01 Last Admin: 04/13/18 21:28 Dose: 0.25 mg Arformoterol Tartrate (Brovana) 15 mcg IH [id number] [facility] Last Admin: 04/14/18 08:15 Dose: 15 mcg Aspirin (Ecotrin) 81 mg PO DAILY [facility] Last Admin: 04/13/18 09:26 Dose: 81 mg Atorvastatin Calcium (Lipitor) 10 mg PO DIN [facility] Last Admin: 04/13/18 17:11 Dose: 10 mg Benzocaine/Menthol (Cepacol Sore Throat) 1 doc MT Q2H PRN PRN Reason: Sore Throat Last Admin: 04/13/18 07:09 Dose: 1 doc Benzonatate (Tessalon Perles) 100 mg PO TID [facility] Last Admin: 04/13/18 17:11 Dose: 100 mg Budesonide (Pulmicort Respules) 1 mg IH [id number] [facility] Last Admin: 04/14/18 08:15 Dose: 1 mg Cefpodoxime Proxetil (Vantin) 200 mg PO Q12 [facility] Stop: 04/17/18 10:01 Cholecalciferol (Vitamin D) 1,000 intlu PO DAILY [facility] Last Admin: 04/13/18 09:27 Dose: 1,000 intlu Enoxaparin Sodium (Lovenox) 40 mg SC DAILY [facility]; Protocol Famotidine (Pepcid) 40 mg PO HS [facility] Last Admin: 04/13/18 21:28 Dose: 40 mg Azithromycin (Zithromax 500mg In Ns) 500 mg in 250 mls @ 250 mls/hr IVPB DAILY [facility]; Protocol Last Admin: 04/13/18 10:38 Dose: 250 mls/hr Levothyroxine Sodium (Synthroid) 100 mcg PO DAILY [facility] Last Admin: 04/13/18 09:28 Dose: 100 mcg Methylprednisolone (Solu-Medrol) 40 mg IVP Q12 [facility] Last Admin: 04/13/18 21:29 Dose: 40 mg Metoprolol Tartrate (Lopressor) 25 mg PO QAM [facility] Last Admin: 04/13/18 09:26 Dose: 25 mg Pantoprazole Sodium (Protonix Ec Tab) 40 mg PO ACB [facility] Last Admin: 04/14/18 09:01 Dose: 40 mg Pregabalin (Lyrica) 25 mg PO BID [facility] Last Admin: 04/13/18 17:11 Dose: 25 mg Spironolactone (Aldactone) 25 mg PO BID [facility] Last Admin: 04/13/18 17:11 Dose: 25 mg Tiotropium [place] (Spiriva) 18 mcg IH DAILY [facility] Last Admin: 04/13/18 09:27 Dose: 18 mcg - Labs Labs: 04/14/18 06:30 04/14/18 06:30 PT 12.2 SECONDS (9.4-12.5) 04/11/18 13:00 INR 1.07 04/11/18 13:00 APTT 31.0 Seconds (25.1-36.5) 04/11/18 13:00 - Constitutional Appears: Well, No Acute Distress - Head Exam Head Exam: NORMAL INSPECTION, NORMOCEPHALIC - Eye Exam Eye Exam: Normal appearance - ENT Exam ENT Exam: Mucous Membranes Moist - Respiratory Exam Respiratory Exam: Decreased Breath Sounds - GI/Abdominal Exam GI & Abdominal Exam: Soft, Normal Bowel Sounds - Back Exam Back Exam: NORMAL INSPECTION - Neurological Exam Neurological Exam: Alert, Awake - Psychiatric Exam Psychiatric exam: Normal Affect, Normal Mood - Skin Skin Exam: Dry, Intact, Warm Assessment and Plan - Assessment and Plan (Free Text) Plan: ITS Impressions Chest X-Ray 04/11/18 12:37 IMPRESSION: No focal consolidation. Dual lead left-sided pacemaker. Borderline cardiomegaly. Dense atherosclerotic calcifications of the aortic knob. All Active Problems Bronchitis (Acute) CHF exacerbation (Acute) COPD exacerbation (Acute) Chest pain (Acute) Generalized weakness (Acute) Hypokalemia (Acute) Influenza (Acute) Pneumonia (Acute) CHF (congestive heart failure) (Chronic) COPD (chronic obstructive pulmonary disease) (Chronic) Dyspnea (Chronic) HLD (hyperlipidemia) (Chronic) History of hyperlipidemia (Chronic) History of hypertension (Chronic) History of hypothyroidism (Chronic) Hypothyroid (Chronic) Rheumatic disease of heart valve (Chronic) 77 yr old with pmh sig for severe copd, chf, hypothyriodism, smoker, sss s/p ppm admitted with waekness, nausea and abd pain as well as intermittent cp now undergoing pulmonary and cardiology evaluation and treatment for acute bronchitis with IV steroids and IV antibiotics PPM interrogated -stable Echo report noted - will follow p.t eval report and follow clinical status, steroid wean BPCI/TIC - BPCIA/TIC Educated pt/family on BPCIA/CIR/Med to Bed Programs: Yes Flyers given, including [facility] Beneficiary letter: Yes Pt/family verbalized understanding & agreed to program: Yes
[2018-04-14] MEDS: MethylPREDNISolone 40 mg Vial IVP SCH (11:12)
[2018-04-14] MEDS: Tiotropium 18 mcg Cap For Inhalation IH SCH (11:13)
[2018-04-14] MEDS: Cholecalciferol 1,000 INTLU TAB PO SCH (11:16)
[2018-04-14] MEDS: Azithromycin 500MG/NS 250ml 500 MG/250 ML BAG IVPB SCH (11:16)
[2018-04-14] MEDS: Levothyroxine 100 MCG TAB PO SCH (11:40)
--- NOTE | 2018-04-14 12:34 | PN ---
PULMONARY PROGRESS NOTE DATE: 04/14/2018 REFERRING PHYSICIAN: Dr. Guillermina Kam. SUBJECTIVE: The patient is sitting up at bedside. No acute distress. Reports that cough is better. Still has shortness of breath with exertion. Reports still having sore throat, but has not used p.r.n. Cepacol throat lozenges. No headache, rhinitis, chest pain, abdominal pain, nausea, vomiting, diarrhea, leg pain, or leg swelling reported. OBJECTIVE: GENERAL: No acute distress. VITAL SIGNS: Blood pressure 110/51, pulse 83, temperature 98, and oxygen saturation 97% on room air. HEENT: Moist mucous membranes. Crowded airway. Mallampati score of 4. NECK: Supple. No JVD. RESPIRATORY: Clear bilaterally. Decreased breath sounds at bases. CARDIOVASCULAR: S1 and S2 audible. ABDOMEN: Soft and nontender. No distention. No organomegaly. EXTREMITIES: No bilateral lower extremity edema. NEUROLOGIC: Awake, alert, and verbal. Follows commands. MEDICATIONS: Reviewed. Tylenol 650 mg every 4 hours p.r.n. for pain and fever, DuoNeb 3 mL inhalation every 6 hours, Xanax 0.25 mg twice a day p.r.n., Brovana 15 mcg every 12 hours, aspirin 81 mg p.o. daily, Lipitor 10 mg at dinner, azithromycin 500 mg p.o. daily, Cepacol throat lozenges every 2 hours p.r.n., Tessalon Perles 100 mg p.o. three times a day, Pulmicort 1 mg every 12 hours, 200 mg every 12 hours, vitamin D 1000 units daily, Lovenox 40 mg subcu daily, Pepcid 40 mg at bedtime, Synthroid 100 mcg p.o. daily, Solu-Medrol 40 mg every 12 hours, Protonix 40 mg at bedtime, Lyrica 25 mg p.o. twice a day, spironolactone 25 mg p.o. twice a day and Spiriva 18 mcg inhalation daily. LABORATORY DATA: Reviewed. WBC 8.5, RBC 4.01, hemoglobin 12.3, hematocrit 37.3, and platelets 261. Sodium 132, potassium 4.7, chloride 93, carbon dioxide 32, anion gap 12, BUN 41, creatinine 1.2, GFR 44, random glucose 222 and calcium 9.8. TSH 0.39. RSV negative. IMPRESSION AND PLAN: Chronic obstructive pulmonary disease, congestive heart failure, hypothyroidism, pancreatitis, anxiety, depression, history of cellulitis, pacemaker placement, hyperglycemia, hypomagnesemia, coronary artery disease, and history of nicotine addiction. We suspect viral exposure may have triggered the patient's chronic lung disease. We will continue Solu-Medrol at current dosage for another day and we will evaluate tomorrow. Continue Tessalon Perles. Continue inhaled bronchodilators, gastric prophylaxis, and deep venous thrombosis prophylaxis. We do suspect some component of sleep apnea syndrome in this patient; we recommend sleep study and full pulmonary function test as outpatient. I spoke to the patient and educated her to ask nurses for Cepacol throat lozenges for her sore throat. Continue antibiotic therapy. This patient was seen and examined with Dr. Simmons. Discussed assessment and plan as described above. Thank you for this consult and we will follow with you. Dileep Og APN Jefferson Simmons MD
--- NOTE | 2018-04-14 15:15 | PN ---
DATE: 04/14/2018 REASON FOR CONSULTATION AND FOLLOWUP: Cardiac evaluation, chest pain atypical, status post pacemaker, nonobstructive coronary artery disease. This note is in addition to dictated by nurse practitioner, Patsy Varela APN. SUBJECTIVE: The patient yesterday underwent echocardiography, that ejection fraction is , normal chamber ejection fraction 65%, left coronary heavily calcified, moderate aortic regurgitation, mild mitral regurgitation, mild tricuspid regurgitation, RV systolic pressure 31, when compared from the previous echo dated, 06/09/2017, aortic valve appears to be is getting more, no moderated at least, before it was [id number]. Chest pain was atypical. RECOMMENDATIONS: Continue NSAID. The patient also had yesterday pacemaker generator interrogated; interrogation done that revealed, battery life of 1.5. No evidence of arrhythmia noted. Interim continue aspirin, continue spironolactone, continue atorvastatin. History of hypokalemia, but with spironolactone 25 p.o. b.i.d. is stable. Continue DVT prophylaxis. Possible discharge planning. Thank you Dr. Kam for providing us the opportunity in taking care of the patient, Cinthya Kimball. I will follow with you. Moderate potassium. We will repeat SMA-7 in the morning. Jefferson Levine MD
--- NOTE | 2018-04-14 15:54 | CP.PCM.PN ---
Subjective - Date & Time of Evaluation Date of Evaluation: 04/14/18 Time of Evaluation: 15:43 - Subjective Subjective: House Doc Note: 77 year old female, with PMH COPD requiring home O2 use, diastolic grade III CHF, cardiac cath 05/2017, hypothyroidism, admitted to [facility] [facility] for weakness, nausea, cough, bronchitis. Today, at 3 PM, patient states that she felt lower jaw pain that radiated to her upper chest, describes the pain as achy, rates it as 6- 8/10, had associated nausea, mild dizziness. States that the pain started while she was watching TV in her bedside chair. Denies abdominal pain, vomiting, palpitations, LOC, diaphoresis. The episode lasted approximately 30 mins. At the time of my examination, patient states that her symptoms have resolved. Vitals reviewed, T 98.2F, BP 128/74, HR 78, RR 16, 98% on 2L O2 via NC Cardio: RRR. S1, S2. No murmurs rubs, gallops + chest wall tenderness to mild palpation diffusely + clicking bilaterally on examination of temporomandibular joint Lungs: CTA b/l. No resp distress or wheezing or accessory muscle use noted. Abd: soft, NT, ND Ext: + mild swelling b/l. no calf tenderness. This is a 77F with PMH COPD, diastolic CHF, pacemaker, complaining of reproducible chest pain: - likely costochondritis 2/2 bronchitis, r/o ACS - Vitals stable, chest pain has resolved - EKG, troponins - Discussed case with PMD Dr Kam. Edelmira Munroe, PGY2. Objective - Vital Signs/Intake and Output Vital Signs (last 24 hours): Temp Pulse Resp BP Pulse Ox 98 F 97 H 19 137/71 97 04/14/18 08:43 04/14/18 11:16 04/14/18 08:43 04/14/18 11:16 04/14/18 08:43 - Medications Medications: Current Medications Acetaminophen (Tylenol 325mg Tab) 650 mg PO Q4H PRN PRN Reason: pain fever Last Admin: 04/11/18 23:18 Dose: 650 mg Albuterol/Ipratropium (Duoneb 3 Mg/0.5 Mg (3 Ml) Ud) 3 ml IH [id number] Last Admin: 04/14/18 08:15 Dose: 3 ml Alprazolam (Xanax) 0.25 mg PO BID PRN; Protocol PRN Reason: Anxiety Stop: 04/20/18 10:01 Last Admin: 04/13/18 21:28 Dose: 0.25 mg Arformoterol Tartrate (Brovana) 15 mcg IH [id number] [facility] Last Admin: 04/14/18 08:15 Dose: 15 mcg Aspirin (Ecotrin) 81 mg PO DAILY [facility] Last Admin: 04/14/18 11:15 Dose: 81 mg Atorvastatin Calcium (Lipitor) 10 mg PO DIN [facility] Last Admin: 04/13/18 17:11 Dose: 10 mg Azithromycin (Zithromax) 500 mg PO DAILY [facility] Stop: 04/17/18 10:01 Benzocaine/Menthol (Cepacol Sore Throat) 1 doc MT Q2H PRN PRN Reason: Sore Throat Last Admin: 04/13/18 07:09 Dose: 1 doc Benzonatate (Tessalon Perles) 100 mg PO TID [facility] Last Admin: 04/14/18 15:13 Dose: 100 mg Budesonide (Pulmicort Respules) 1 mg IH [id number] [facility] Last Admin: 04/14/18 08:15 Dose: 1 mg Cefpodoxime Proxetil (Vantin) 200 mg PO Q12 [facility] Stop: 04/17/18 10:01 Last Admin: 04/14/18 11:14 Dose: 200 mg Cholecalciferol (Vitamin D) 1,000 intlu PO DAILY [facility] Last Admin: 04/14/18 11:16 Dose: 1,000 intlu Enoxaparin Sodium (Lovenox) 40 mg SC DAILY [facility]; Protocol Last Admin: 04/14/18 11:10 Dose: 40 mg Famotidine (Pepcid) 40 mg PO HS [facility] Last Admin: 04/13/18 21:28 Dose: 40 mg Levothyroxine Sodium (Synthroid) 100 mcg PO DAILY [facility] Last Admin: 04/14/18 11:40 Dose: 100 mcg Methylprednisolone (Solu-Medrol) 40 mg IVP Q12 [facility] Last Admin: 04/14/18 11:12 Dose: 40 mg Metoprolol Tartrate (Lopressor) 25 mg PO QAM [facility] Last Admin: 04/14/18 11:16 Dose: 25 mg Pantoprazole Sodium (Protonix Ec Tab) 40 mg PO ACB [facility] Last Admin: 04/14/18 09:01 Dose: 40 mg Pregabalin (Lyrica) 25 mg PO BID [facility] Last Admin: 04/14/18 11:14 Dose: 25 mg Spironolactone (Aldactone) 25 mg PO BID [facility] Last Admin: 04/14/18 11:15 Dose: 25 mg Tiotropium [place] (Spiriva) 18 mcg IH DAILY [facility] Last Admin: 04/14/18 11:13 Dose: 18 mcg - Labs Labs: 04/14/18 06:30 04/14/18 06:30 PT 12.2 SECONDS (9.4-12.5) 04/11/18 13:00 INR 1.07 04/11/18 13:00 APTT 31.0 Seconds (25.1-36.5) 04/11/18 13:00
[2018-04-14 16:52] LABS: TROPONIN I < 0.01 ng/mL
[2018-04-14 18:51] VITALS: BP 134/71; PULSE 91; RESP 18; TEMP 97.4; O2SAT 96
--- NOTE | 2018-04-15 08:12 | CARD ---
APPROVED REPORT Date of service: 04/14/2018 EKG Measurement Heart [id number] <Conclusion> AV Pacing One non-conducted P wave: possible pacemaker malfunction. Suggest pacemaker interrogation.
== END 2018-04-14 18:40 | DRG 202 ==
LOC: ED 11:52 → ERH 15:14 → 2RSO 23:03 → 3RSO 04-13 22:03
PROVIDERS: ADMIT Internal Medicine; ATTEND Internal Medicine
DX: J20.9 Acute bronchitis, unspecified (principal); J44.0 Chronic obstructive pulmonary disease with (acute) lower respiratory infection; I50.32 Chronic diastolic (congestive) heart failure; R05 Cough; Z95.0 Presence of cardiac pacemaker; I25.10 Atherosclerotic heart disease of native coronary artery without angina pectoris; Z87.891 Personal history of nicotine dependence; R42 Dizziness and giddiness; E03.9 Hypothyroidism, unspecified; E11.65 Type 2 diabetes mellitus with hyperglycemia; E83.42 Hypomagnesemia; E87.8 Other disorders of electrolyte and fluid balance, not elsewhere classified; F32.89 Other specified depressive episodes; F41.9 Anxiety disorder, unspecified; G47.30 Sleep apnea, unspecified; H91.90 Unspecified hearing loss, unspecified ear; I08.3 Combined rheumatic disorders of mitral, aortic and tricuspid valves; K21.9 Gastro-esophageal reflux disease without esophagitis; M94.0 Chondrocostal junction syndrome [Tietze]; Z79.82 Long term (current) use of aspirin; Z79.890 Hormone replacement therapy; Z86.010 Personal history of colon polyps

== ENCOUNTER 2018-04-14 18:40 | Inpatient (IN) | payer OTHER ==
[2018-04-14 20:30] VITALS: BMI 35.9
[2018-04-14] MEDS: Cefpodoxime (Vantin) 200 mg Tab PO SCH (22:39)
[2018-04-15] MEDS: Pantoprazole 40 mg EC Tab PO SCH (05:56)
[2018-04-15] MEDS: Enoxaparin 40 mg Syringe SC SCH (05:58)
[2018-04-15] MEDS ORDERED: Levothyroxine 100 MCG TAB PO SCH (06:00)
[2018-04-15] MEDS ORDERED: MethylPREDNISolone 40 mg Vial IVP SCH (06:00)
[2018-04-15 06:55] LABS: HEMOGLOBIN 12.6 g/dL (12.0-16.0); MEAN CELL VOLUME 94.4 fl (80.0-105.0); MEAN CORPUSCULAR HEMOGLOBIN 30.9 pg (25.0-35.0); MEAN CORPUSCULAR HGB CONC 32.7 g/dl (31.0-37.0); RBC 4.08 10^6/uL (3.5-6.1); RED CELL DISTRIBUTION WIDTH 14.2 % (11.5-14.5); WHITE BLOOD COUNT 7.2 10^3/uL (4.5-11.0)
[2018-04-15 07:09] LABS: BLOOD UREA NITROGEN 37 mg/dL (7-21); CALCIUM 9.6 mg/dL (8.4-10.5); GFR NON-AFRICAN AMERICAN 54
[2018-04-15] MEDS: Albuterol-Ipratrop 3 mg / 0.5 (3 ml) UD IH SCH ×3 (07:30→20:00)
[2018-04-15] MEDS: Budesonide 0.5 mg/2 ml Inhal Susp UD IH SCH ×2 (07:46→20:00)
[2018-04-15] MEDS: Arformoterol 15 mcg/2 ml Inh Sol IH SCH ×2 (07:46→20:00)
[2018-04-15] MEDS ORDERED: Arformoterol 15 mcg/2 ml Inh Sol IH SCH (08:00)
[2018-04-15] MEDS: Cholecalciferol 1,000 INTLU TAB PO SCH (09:27)
[2018-04-15] MEDS: Cefpodoxime (Vantin) 200 mg Tab PO SCH ×2 (09:32→22:01)
[2018-04-15] MEDS: Tiotropium 18 mcg Cap For Inhalation IH SCH (13:19)
--- NOTE | 2018-04-15 15:13 | CON ---
DATE: 04/15/2018 PULMONARY CONSULTATION REFERRING PHYSICIAN: Guillermina Kam MD REASON FOR CONSULT: COPD and shortness of breath. HISTORY OF PRESENT ILLNESS: This is a 77-year-old female with past medical history of chronic obstructive pulmonary disease, CHF, hypothyroidism, history of nicotine addiction, coronary artery disease and history of pacemaker placement. She originally came to the emergency room with cough and shortness of breath. The patient was treated and transferred to rehab unit. Today, the patient reports feeling much better, still some shortness of breath with exertion. PAST MEDICAL HISTORY: CHF, COPD, hypothyroidism, cellulitis, pancreatitis, anxiety, depression, right knee surgery, pacemaker placement and the patient also has oxygen at home. ALLERGIES: LEVAQUIN. FAMILY HISTORY: No cardiopulmonary history reported. SOCIAL HISTORY: Former smoker, quit 3 years ago. No ETOH abuse. No illicit drug use. MEDICATIONS: Reviewed. Tylenol 650 mg every 4 hours p.r.n. for mild pain, DuoNeb 3 mL inhalation every 6 hours, Xanax 0.25 mg twice a day p.r.n., Brovana 15 mcg every 12 hours, aspirin 81 mg daily, Lipitor 10 mg at dinner, Zithromax 500 mg p.o. daily, Cepacol throat lozenges every 2 hours p.r.n., Tessalon Perles 100 mg three times a day, Pulmicort 1 mg inhalation every 12 hours, Vantin 200 mg every 12 hours, vitamin D 1000 units daily, Colace 100 mg three times a day, Lovenox 40 mg daily, Pepcid 40 mg at bedtime, Synthroid 100 mcg daily, Solu-Medrol 40 mg twice a day, Lopressor 25 mg in the morning, Protonix 40 mg daily, Lyrica 25 mg twice a day, 25 mg twice a day and Spiriva 18 mcg inhalation daily. REVIEW OF SYSTEMS: No headache, rhinitis, chest pain, abdominal pain, nausea, vomiting or diarrhea reported. The patient reports feeling better. Cough has improved. Reports shortness of breath with exertion. PHYSICAL EXAMINATION: GENERAL: No acute distress. VITAL SIGNS: Blood pressure 103/63, pulse 90, temperature 97.8. HEENT: Moist mucous membranes. Mallampati score of 4. NECK: Supple. No JVD. LUNGS: Fair airflow bilaterally. CARDIOVASCULAR: S1 and S2 audible. ABDOMEN: Soft and nontender. No distention. No organomegaly. EXTREMITIES: No bilateral lower extremity edema. NEUROLOGIC: Awake, alert, verbal, follows simple commands. LABORATORY DATA: Reviewed. WBC 7.2, RBC 4.08, hemoglobin 12.6, hematocrit 38.5 and platelets 279. Sodium 135, potassium 4.6, chloride 98, carbon dioxide 35, anion gap of 7, BUN 37, creatinine 1, GFR 54, random glucose 152. Calcium 9.6, phosphorus 2.7, magnesium 2.4. IMPRESSION AND PLAN: Chronic obstructive pulmonary disease, congestive heart failure, hypothyroidism, pancreatitis, anxiety, depression, cellulitis, pacemaker placement, hyperglycemia, hypomagnesemia, coronary artery disease and history of nicotine addiction. Pulmonary point of view, we will decrease Solu-Medrol to 20 mg twice a day. Continue inhaled bronchodilators, gastric prophylaxis and deep venous thrombosis prophylaxis. We do suspect sleep apnea syndrome in this patient. We will recommend sleep study and full PFT as outpatient. Continue antibiotic therapy. This patient was seen and examined with Dr. Simmons. Discussed assessment and plan as described above. Thank you for this consult and we will follow with you. Dileep Og APN Jefferson Simmons MD [facility]
[2018-04-15] MEDS: MethylPREDNISolone 40 mg Vial IVP SCH (17:16)
--- NOTE | 2018-04-15 18:13 | CON ---
DATE: 04/15/2018 REASON FOR CONSULTATION AND FOLLOWUP: Cardiac evaluation, history of nonobstructive coronary artery disease; history of COPD, asthma, history of post pacemaker, sick sinus syndrome, admitted for possible bronchitis, continued care in Transitional Care Unit. HISTORY OF PRESENT ILLNESS: A 77-year-old female with past medical history of smoking, quit 3 to 4 years ago, history of nonobstructive coronary artery disease, status post pacemaker, sick sinus syndrome, present with generalized pain in the acute medical floor with chest pain and back pain, responded well to ibuprofen, also symptoms of acute bronchitis, the patient initiated to the medical floor. Now, the patient is transitioned care and cardiac consult for followup. PAST MEDICAL HISTORY: Significant for COPD, CHF, diastolic dysfunction, atrial fibrillation, anxiety disorder, depression, COPD, hypertension, status post permanent pacemaker. PAST SURGICAL HISTORY: Significant for pacemaker, knee surgery, and history of cardiac catheterization. Previous cardiac workup as follows: The patient had a stress test on 05/30/2017 that showed ischemia. The patient underwent cardiac catheterization on 06/11/2017 that showed a normal LV contractility, ejection fraction 60%, EDP was in the range of 25. Right heart catheterization shows RA 15, RV 44/15, PA 40/25, mean PA 32 with capillary pressure of 24. Coronaries were essentially normal. Echo on 06/09/2017 shows normal systolic function, ejection fraction 55% [id number] aortic regurgitation, [id number] mitral regurgitation, mild tricuspid regurgitation, RV systolic pressure 35. SOCIAL HISTORY: She stopped smoking 3 to 4 years ago. She used to smoke 50 packs a year. Denies any history of alcohol abuse. Denies any history of substance abuse. CURRENT MEDICATIONS AT HOME: Before coming to the hospital, the patient was taking methylprednisolone, spironolactone, Lyrica, metoprolol 25 mg p.o., Levoxyl, Tessalon Perles, aspirin, atorvastatin, and albuterol inhaler. REVIEW OF SYSTEMS: As per HPI. Height of the patient is 5 feet 6 inches, weight of the patient is 196, body mass index 30 kg/m2. EKG shows V-paced rhythm. PHYSICAL EXAMINATION: VITAL SIGNS: Temperature afebrile, heart rate 90, and blood pressure 103/63. HEENT: PERRLA intact. NECK: Supple. No carotid bruits or thyromegaly. CHEST: Clear to auscultation. HEART: S1 and S2 regular. ABDOMEN: Soft. EXTREMITIES: Clubbing and cyanosis negative. LABORATORY DATA: WBC 7.8, hemoglobin 12.6, hematocrit 38.5, and platelet count 279. Chemistry shows sodium 135, potassium 4.6, chloride 98, carbon dioxide 35, anion gap of 17, BUN 35, creatinine 1.0. IMPRESSION: A 77-year-old female with past medical history significant for essentially cardiac catheterization, admitted with acute bronchitis, hypertension, hyperlipidemia, ex-smoker, chronic obstructive pulmonary disease. RECOMMENDATIONS: Continue metoprolol 20. Continue spironolactone. The patient had pacemaker evaluation checked yesterday, normal function, no arrhythmia noted. Life of the pacemaker is 1.5 years. So, we will continue deep venous thrombosis prophylaxis. We will follow with you. Thank you Dr. Kam for providing us the opportunity in taking care of the patient, Jigar Mendes. We will follow with you. Jefferson Levine MD
--- NOTE | 2018-04-15 20:07 | CON ---
DATE OF CONSULTATION: 04/15/2018 HISTORY OF PRESENT ILLNESS: Shortly, the patient was admitted on the medical side, then was downgraded to TCU unit. Psych consult was called for evaluation of depression and anxiety. The patient was seen and examined today. The patient presented to be tearful. The patient referred herself as "stupid," "I always cry." The patient reported that she feels overwhelmed at home because her daughter moved in into her one bedroom apartment with her 10-year-old son and right now her life is hectic. The patient reported that she feels hopeless. The patient reported that her panic attacks are waking her up in the middle of the night. The patient was offered to initiate Prozac as well as Sonata at the nighttime for insomnia. The patient already is on Xanax. Risks, benefits and alternatives of the medication discussed with the patient. The patient was even open to option to go to the psychiatric inpatient due to severity of her symptoms, but at the same time the patient reported that she wants to go back home by [place]. The patient has never been seen by psychiatrist in the past, never tried to harm herself in the past. The patient has never been admitted to the psychiatric inpatient unit. VITAL SIGNS: Reviewed. MEDICATIONS: Reviewed. LABS: Reviewed. MENTAL STATUS EXAMINATION: The patient appears to be alert and oriented, tearful, poor eye contact. Speech was normal rate, tone, quality and quantity. Mood described as depressed and anxious. Affect was tearful, constricted and mood congruent. Thought process seems to be coherent and goal directed. Thought content, the patient denied visual, auditory or tactile hallucinations. Denied paranoid ideation. The patient does not present to be psychotic. Insight and judgment seems to be limited. Impulses are well controlled. IMPRESSION: Rule out major depressive disorder, rule out adjustment disorder, rule out mood disorder, anxiety disorder due to general medical condition. PLAN: Xanax can be continued 0.25 mg twice a day, Sonata at the nighttime 5 mg as needed for insomnia. The patient also was started on Prozac 10 mg daily with a plan to increase it accordingly. The patient is having physical therapy. The patient was offered admission to the psychiatric inpatient unit. The patient wants to think about it. Thank you very much for letting me participate in care of your patient. Cordelia Gates MD [facility] # [id number]
[2018-04-16] MEDS: Levothyroxine 50 MCG TAB PO SCH (06:03)
[2018-04-16] MEDS: Enoxaparin 40 mg Syringe SC SCH (06:04)
[2018-04-16] MEDS: Pantoprazole 40 mg EC Tab PO SCH (06:04)
[2018-04-16] MEDS: MethylPREDNISolone 40 mg Vial IVP SCH ×2 (06:06→17:22)
[2018-04-16] MEDS: Benzocaine/Menthol (Cepacol) Lozenge MT PRN ×2 (06:15→22:17)
[2018-04-16] MEDS: Albuterol-Ipratrop 3 mg / 0.5 (3 ml) UD IH SCH ×3 (07:21→19:45)
[2018-04-16] MEDS: Budesonide 0.5 mg/2 ml Inhal Susp UD IH SCH ×2 (07:21→19:52)
[2018-04-16] MEDS: Arformoterol 15 mcg/2 ml Inh Sol IH SCH ×2 (07:21→19:45)
--- NOTE | 2018-04-16 08:10 | HP ---
DATE OF EXAM: 04/15/2018 The patient is a 77-year-old female. The patient was seen and examined at the bedside on 04/15/2018. CHIEF COMPLAINT: Coughing, shortness of breath, fatigue and tired. HISTORY OF PRESENT ILLNESS: Ms. Cinthya Kimball is a 77-year-old female with past medical history of chronic obstructive pulmonary disease, congestive heart failure, hypothyroidism, history of nicotine addiction, coronary artery disease, history of pacemaker placement. The patient was admitted to [facility], on the acute side for coughing and shortness of breath. The patient was treated and got better, improved and transferred to TCU for continuity of care and for physical therapy and I saw the patient during physical therapy. She is feeling much better. Even anxiety is better. Seen by the psychiatrist. PAST MEDICAL HISTORY: Congestive heart failure, COPD, hypothyroidism, cellulitis, pancreatitis, anxiety, depression, right knee surgery, pacemaker placement and the patient has oxygen at home. ALLERGIES: THE PATIENT IS ALLERGIC TO LEVAQUIN. FAMILY HISTORY: Father and mother noncontributory. HABITS: Former smoker, quit 3 years ago. No substance abuse. No ethanol abuse. No drugs. MEDICATIONS: Reviewed by me. Tylenol, DuoNeb, Xopenex, Brovana, Lipitor, Zithromax, Tessalon Perles, Pulmicort, and Vantin. REVIEW OF SYSTEMS: The patient was seen and examined at the bedside. Looking comfortable. Getting physical therapy. No fever. No chills. No hematuria. No hematochezia. No headache. No dizziness. No chest pain. No palpitation. PHYSICAL EXAMINATION VITAL SIGNS: Blood pressure 103/63, pulse 90, temperature 97.8, and respiratory rate 18. HEENT: Head; normocephalic, atraumatic. Eyes; PERRLA. Extraocular muscles intact. Conjunctivae clear. Nose patent. Mucous membranes moist. NECK: Supple. No carotid bruits. No JVD or thyromegaly. CHEST: Bilaterally symmetrical. HEART: S1, S2 positive. LUNGS: Clear to auscultation. ABDOMEN: Soft. Bowel sounds present. No organomegaly. EXTREMITIES: No edema. No cyanosis. NEUROLOGIC: The patient is awake, alert. Follows simple commands.. LABORATORY DATA: White blood cell 7.2, hemoglobin 12.5, hematocrit 38.5, and platelets 279. Sodium 135, potassium 4.6, BUN 37, creatinine 1. Glucose 152. Calcium 9.6. ASSESSMENT AND PLAN: Ms. Cinthya Kimball is a 77-year-old lady with multiple medical problem, on the acute side for revision of chronic pulmonary disease, bronchitis, has history of chronic obstructive pulmonary disease, congestive heart failure, hypothyroidism, pancreatitis, anxiety, depression, history of pacemaker placement, hyperglycemia, hypermagnesemia, coronary artery disease, history of nicotine addiction. From pulmonary point of view, the patient is doing better. The patient was on Solu-Medrol. Seen by the roof technician and drop tester. Gastroenterology and deep venous thrombosis prophylaxis. Getting physical therapy. Repeat labs. We will follow up. Guillermina Kam MD [facility]
[2018-04-16] MEDS: Cefpodoxime (Vantin) 200 mg Tab PO SCH ×2 (10:18→22:15)
[2018-04-16] MEDS: Cholecalciferol 1,000 INTLU TAB PO SCH (10:18)
[2018-04-16] MEDS: Tiotropium 18 mcg Cap For Inhalation IH SCH (10:19)
--- NOTE | 2018-04-16 14:12 | PN ---
DATE: 04/16/2018 PULMONARY PROGRESS NOTE REFERRING PHYSICIAN: Guillermina Kelly MD SUBJECTIVE: The patient is sitting up in chair in room. Reports shortness of breath with exertion. No coughing. Nursing staff reports that the patient is constipated and has not had a bowel movement in about 3 or 4 days. No headache, rhinitis, chest pain, abdominal pain, nausea, vomiting, diarrhea or leg pain reported. PHYSICAL EXAMINATION: GENERAL: No acute distress. VITAL SIGNS: Blood pressure 130/73, pulse 70, temperature 98.3 and oxygen saturation 93% on nasal cannula. HEENT: Moist mucous membranes. Mallampati score of 4. NECK: Supple. No JVD. LUNGS: Few rhonchi. Fair airflow bilaterally. CARDIOVASCULAR: S1 and S2 audible. ABDOMEN: Soft and nontender. No distention. No organomegaly. EXTREMITIES: Trace edema bilaterally, lower extremities. NEUROLOGIC: Awake, alert, verbal, follows commands. MEDICATIONS: Reviewed. Tylenol 650 mg every 4 hours p.r.n. for mild pain, DuoNeb 3 mL inhalation every 6 hours, Xanax 0.25 mg twice a day p.r.n., Brovana 15 mcg every 12 hours, aspirin 81 mg daily, Lipitor 10 mg at dinner, Zithromax 500 mg p.o. daily, Cepacol throat lozenges every 2 hours p.r.n., Tessalon Perles 100 mg three times a day, Pulmicort 1 mg every 12 hours, Vantin 200 mg daily, vitamin D 1000 units daily, Colace 100 mg three times a day, Lovenox 40 mg daily, Pepcid 40 mg at bedtime, Prozac 10 mg daily, Synthroid 100 mcg daily, Solu-Medrol 20 mg twice a day, Lopressor 25 mg in the morning, Protonix 40 mg in the evening, Lyrica 25 mg twice a day, spironolactone 25 mg twice a day, Spiriva 18 mcg inhalation daily, Sonata 5 mg p.o. at bedtime p.r.n. LABORATORY DATA: Reviewed. No new labs since yesterday. IMPRESSION AND PLAN: Chronic obstructive pulmonary disease, congestive heart failure, hypothyroidism, pancreatitis, anxiety, depression, cellulitis, history of pacemaker placement, hyperglycemia, coronary artery disease, history of nicotine addiction. Discussed with nursing staff to give the patient Dulcolax suppository x1, monitor for bowel movements. Pulmonary point of view, continue steroids, continue inhaled bronchodilators, gastric prophylaxis and deep venous thrombosis prophylaxis. Suspect sleep apnea syndrome in this patient, we recommend sleep study and full pulmonary function test as outpatient. Continue antibiotic therapy. Continue physical therapy. This patient was seen and examined with Dr. Simmons. Discussed assessment and plan as described above. Thank you for this consult. We will follow with you. Dileep PrudeMANUEL mcmullen Jefferson Simmons MD
--- NOTE | 2018-04-16 17:55 | PN ---
DATE: 04/16/2018 REASON FOR CONSULTATION: Cardiac evaluation, history of nonobstructive coronary artery disease, COPD, asthma, history of pace maker sick sinus syndrome, admitted with possible bronchitis, now in transitional care unit for the continuity of care. SUBJECTIVE: The patient denies any chest pain, denies any shortness of breath, denies any palpitation. OBJECTIVE: GENERAL: Not in apparent distress. VITAL SIGNS: Temperature afebrile. Heart rate 70. Blood pressure 125/72. HEENT: PERRLA. Extraocular muscles intact. NECK: Supple. No carotid bruit or thyromegaly. CHEST: Clear to auscultation. HEART: S1, S2 regular. ABDOMEN: Soft. EXTREMITIES: Clubbing and cyanosis negative. LABORATORY DATA: Blood workup as follows; WBC 7.8, hemoglobin 12.6, hematocrit 38.5, platelet count 279. Chemistry shows sodium 135, potassium 4.6, chloride 98, carbon dioxide 35, anion gap of 7, BUN 37, creatinine 1, magnesium 2.4. IMPRESSION: This is a 77-year-old female with a past medical history significant for obesity, hypertension, tobacco abuse, history of chronic obstructive pulmonary disease, history of sick sinus syndrome status post permanent pacemaker, history of cardiac catheterization, nonobstructive coronary artery disease, essentially normal coronaries, admitted with acute bronchitis-type of symptoms, history of hypokalemia, on spironolactone, has been on potassium supplement. Now, the potassium is 4.6, off K-Dur, only on spironolactone. Recently, the patient had a pacemaker interrogation done, that battery life is 1.5 years, no evidence of arrhythmia noted. RECOMMENDATIONS: Continue metoprolol. Continue spironolactone. Continue enoxaparin. stable condition. DVT prophylaxis, continue rehab. Thank you Dr. Kam for providing us the opportunity in taking care of the patient, Cinthya Kimball. Jefferson Levine MD
--- NOTE | 2018-04-16 19:07 | PN ---
DATE: 04/16/2018 SUBJECTIVE: The patient was followed up. The patient reported that she had a better night sleep. The patient reported that she feels still depressed and hopeless, but denies helplessness or guilt or suicidal ideation. The patient's daughter is next to her. The patient was educated about treatment plan. The patient is willing to sign herself into the psychiatric inpatient unit, but at present moment, the patient wants to complete transitional care unit hospitalization and become stronger. The patient also wants to spend Flora with her family, after that the patient wants to come back to the hospital in order to adjust her medications. OBJECTIVE: VITAL SIGNS: Vital signs are stable. Temperature 98.3, pulse 70, and blood pressure 125/72. MENTAL STATUS EXAM: The patient appears to be alert and oriented, less tearful than yesterday. Mood described as depressed. Affect was constricted. Thought process coherent and goal directed. Thought content, the patient denied visual, auditory, or tactile hallucinations. Denied paranoid ideation. The patient denied thoughts of harming herself or others. Denied intent or plan, but reported feeling of hopelessness or helplessness. Insight and judgment fair. Impulses are well controlled. MEDICATIONS: Reviewed. Tylenol, DuoNeb, Xanax 0.25 mg twice a day as needed, Brovana, aspirin, Lipitor, Zithromax, Cepacol, Tensilon, Pulmicort, Vantin, vitamin D, Colace, Lovenox, Pepcid, Prozac 10 mg daily started the patient so far tolerated that well, Synthroid, Lopressor, Protonix, Lyrica, Spiriva, Aldactone, and Sonata as needed for insomnia. LABORATORY DATA: Reviewed. Microbiology reviewed. IMPRESSION: Major depressive disorder, rule out mood disorder due to general medical condition. PLAN: Continue Prozac, continue Sonata, and continue Xanax. We will follow up and advise accordingly. Thank you very much for letting me to participate in the care of your patient. Cordelia Gates MD
--- NOTE | 2018-04-17 01:48 | PN ---
DATE: 04/16/2018 SUBJECTIVE: The patient is a 77-year-old female. The patient was seen and examined at the bedside on 04/16/2018, looking comfortable. No fever. No chills. No hematuria or hematochezia. No headache. No dizziness. Did physical therapy. No chest pain. Anxiety is getting better, but wants regular food. She does not want heart-healthy diet. Zoning Assistant is on the case to decide. PHYSICAL EXAMINATION VITAL SIGNS: Blood pressure 130/70, pulse 70, temperature 98.3, oxygen saturation 93% on nasal cannula. HEENT: Head: Normocephalic, atraumatic. Eyes: PERRLA. Extraocular muscles are intact. Conjunctivae clear. Nose patent. Mucous membranes moist. NECK: Supple. No carotid bruit. No JVD or thyromegaly. CHEST: Bilaterally symmetrical. HEART: S1 and S2, positive. LUNGS: Few rhonchi. Fair airflow bilaterally. ABDOMEN: Soft, nontender. No organomegaly. EXTREMITIES: Trace edema bilaterally. NEUROLOGICAL: The patient is awake and alert, follows simple commands. MEDICATIONS: Tylenol, DuoNeb, Brovana, Zithromax, Tessalon Perles, Vantin, Lovenox, Pepcid, Synthroid, Solu-Medrol tapering doses, Lopressor, Protonix, spironolactone. LABORATORY DATA: We do not have recent labs today, but I reviewed old labs. ASSESSMENT AND PLAN: Ms. Cinthya Kimball is a 77-year-old lady with multiple medical problems. Anxiety, getting Xanax, seen by Dr. Cordelia Gates. I have discussion done with Dr. Cordelia Gates. Chronic obstructive pulmonary disease, getting Brovana, Zithromax. Vitamin D deficiency, getting replacement. Constipation, getting stool softener. Lovenox and Paxil for gastrointestinal and deep venous thrombosis prophylaxis. Hypothyroidism, getting Synthroid; getting tapering doses of Solu-Medrol. Has chronic obstructive pulmonary disease, congestive heart failure, history of pancreatitis, depression, history of pacemaker placement, hyperglycemia, coronary artery disease, nicotine dependency, got Dulcolax suppository. Plan is to continue tapering dose of steroid, bronchodilator, sleep apnea precautions. Appreciated Pulmonary and Cardiology input for physical therapy. We will follow up. Guillermina Kam MD [facility] # [id number]
[2018-04-17] MEDS: Albuterol-Ipratrop 3 mg / 0.5 (3 ml) UD IH SCH ×3 (02:21→14:06)
[2018-04-17] MEDS: Enoxaparin 40 mg Syringe SC SCH (05:53)
[2018-04-17] MEDS: MethylPREDNISolone 40 mg Vial IVP SCH ×2 (06:02→17:56)
[2018-04-17] MEDS: Pantoprazole 40 mg EC Tab PO SCH (06:03)
[2018-04-17] MEDS: Levothyroxine 50 MCG TAB PO SCH (06:03)
[2018-04-17] MEDS: Arformoterol 15 mcg/2 ml Inh Sol IH SCH ×2 (08:10→20:54)
[2018-04-17] MEDS: Budesonide 0.5 mg/2 ml Inhal Susp UD IH SCH ×2 (08:11→20:54)
[2018-04-17] MEDS: Tiotropium 18 mcg Cap For Inhalation IH SCH (10:12)
[2018-04-17] MEDS: Cholecalciferol 1,000 INTLU TAB PO SCH (10:14)
[2018-04-17] MEDS: Cefpodoxime (Vantin) 200 mg Tab PO SCH (12:11)
--- NOTE | 2018-04-17 15:02 | RAD ---
Date of service: 04/17/2018 HISTORY: rule out infiltrate COMPARISON: 04/11/2018 TECHNIQUE: Chest PA and lateral FINDINGS: LUNGS: No active pulmonary disease. PLEURA: No significant pleural effusion identified. No pneumothorax apparent. CARDIOVASCULAR: No aortic atherosclerotic calcification present. Normal cardiac size. No pulmonary vascular congestion. OSSEOUS STRUCTURES: No significant abnormalities. VISUALIZED UPPER ABDOMEN: Normal. OTHER FINDINGS: Dual lead pacemaker IMPRESSION: No active disease.
--- NOTE | 2018-04-17 16:19 | PN ---
PULMONARY PROGRESS NOTE DATE: 04/17/2018 REFERRING PHYSICIAN: Dr. Guillermina Kam SUBJECTIVE: The patient is sitting up in wheelchair with physical therapy. No acute distress. The patient reports shortness of breath with exertion, leg swelling and occasional cough. No headache, rhinitis, chest pain, abdominal pain, nausea, vomiting and diarrhea reported. OBJECTIVE: GENERAL: No acute distress. VITAL SIGNS: Blood pressure 99/53, pulse 72, temperature 98 and oxygen saturation 94%. HEENT: Moist mucous membranes. Mallampati score of 4. NECK: Supple. No JVD. LUNGS: Positive rhonchi bilaterally. CARDIOVASCULAR: S1 and S2, audible. ABDOMEN: Soft and nontender. No distention and no organomegaly. EXTREMITIES: Positive edema to bilateral lower extremities. NEUROLOGIC: Awake, alert and verbal. Follow commands. MEDICATIONS: Reviewed. Tylenol 650 mg every 4 hours p.r.n. for mild pain, DuoNeb 3 mL inhalation every 6 hours, Xanax 0.25 mg twice a day p.r.n. Brovana 15 mcg every 12 hours, aspirin 81 mg daily, Lipitor 10 mg at dinner, Cepacol throat lozenges every 2 hours p.r.n, Tessalon Perles 100 mg p.o. three times a day, Pulmicort 1 mg inhalation every 12 hours, vitamin D 1000 units daily, Colace 100 mg three times a day, Lovenox 40 mg subcutaneous daily, Pepcid 40 mg at bedtime, Prozac 10 mg p.o. daily, Synthroid 100 mcg daily, Solu-Medrol 20 mg twice a day, Lopressor 25 mg daily, Protonix 40 mg daily, Lyrica 25 mg twice a day, Aldactone 25 mg twice a day, Spiriva 18 mcg daily, Sonata 5 mg at bedtime p.r.n. LABORATORY DATA: Reviewed. No new labs. IMPRESSION AND PLAN: Chronic obstructive pulmonary disease, congestive heart failure, hypothyroidism, pancreatitis, anxiety, depression, cellulitis, history of pacemaker placement, hyperglycemia, coronary artery disease, history of nicotine addiction. Pulmonary point of view, the patient noted with increase lower extremity edema. We will order venous doppler. We will get procalcitonin, proBNP, chest x-ray. Continue steroids, inhaled bronchodilators, gastric prophylaxis, deep venous thrombosis prophylaxis, sleep apnea precautions. Head of bed elevated 45 degrees. Fall precautions. We recommended the patient have sleep study and full pulmonary function test as outpatient. Continue physical therapy. This patient was seen and examined with Dr. Simmons. Discussed assessment and plan as described above. Thank you for this consult. We will follow with you. Dileep Og APN Jefferson Simmons MD
--- NOTE | 2018-04-17 20:25 | PN ---
DATE: 04/17/2018 SUBJECTIVE: The patient was seen today. The patient appears to be much calmer to compare with yesterday and the day before yesterday. The patient reported that she had decent night sleep, still has episodes of crying spells, but not with this global technical writer. The patient said that overall, she likes medication regimen she is currently on. The patient was provided with information for outpatient program and the patient expressed her highest interest to follow up with Dr. Seymour as outpatient. The patient also was educated in case of the worsening of the symptoms, she needs to come back to the hospital. The patient was verbalized understanding. Meanwhile, the patient is improving. OBJECTIVE: VITAL SIGNS: Stable. MENTAL STATUS EXAM: The patient appears to be alert and oriented, pleasant, and cooperative. Mood described as "I am doing little bit better." Affect was constricted, but not tearful. Thought process coherent and goal directed. Thought content, the patient denied visual, auditory, or tactile hallucinations. Denied paranoid ideation. The patient denied thoughts of harming herself or others. Denied intent or plan. Insight and judgment seems to be fair. Impulses are well controlled. MEDICATIONS: Reviewed. LABORATORY DATA: Reviewed. Chemistry reviewed. IMPRESSION: Rule out major depressive disorder, rule out mood disorder due to general medical condition. PLAN: Continue Xanax 0.25 mg twice a day. Continue Prozac 10 mg daily. The patient was provided with information for outpatient providers and the patient contracted for safety over the weekend, Dr. Seymour will follow up on her and if the patient will be here over the weekend, this global technical writer will follow up on the patient on Friday. The patient has future oriented plans that she wants to spend [place] with her family, but the patient expressed her highest interest to come back to the hospital for psychiatric admission. We will follow up and advise accordingly. Thank you very much for letting me to participate in the care of your patient. Cordelia Gates MD
--- NOTE | 2018-04-17 20:57 | PN ---
DATE: 04/17/2018 REASON FOR CONSULTATION: Followup, cardiac evaluation, history of nonobstructive coronary artery disease, COPD, asthma, history of pacemaker, sick sinus syndrome, admitted with possible bronchitis, now in transitional care unit for continuity of care. SUBJECTIVE: The patient complains of cough. OBJECTIVE GENERAL: Not in apparent distress. VITAL SIGNS: Temperature afebrile. Heart rate 70, blood pressure 135/77. HEENT: PERRLA. Extraocular muscles intact. NECK: Supple. No carotid bruit or thyromegaly. CHEST: Clear to auscultation. HEART: S1, S2 regular. ABDOMEN: Soft. EXTREMITIES: Clubbing and cyanosis negative. LABORATORY DATA: WBC 7.8, hemoglobin , hematocrit 38.5, platelet count 279. Chemistry shows sodium 135, potassium 4.6, chloride 98, carbon dioxide 35, anion gap 7, BUN 39, creatinine 1. DIAGNOSTIC DATA: Chest x-ray: No active disease reported, films reviewed, no infiltrate noted, PA and lateral, mild questionable congestion. IMPRESSION: A 77-year-old female, ex-smoker; admitted with bronchitis; history of hypokalemia, on spironolactone; history of sick sinus syndrome, status post pacemaker, status post . Recently pacemaker interrogation done, battery less than 0.5 years, no arrhythmia noted. Sick sinus syndrome, history of cardiac catheterization, normal coronaries, elevated diastolic pressure concerning for pulmonary hypertension. Chest x-ray is negative for infiltrate. RECOMMENDATIONS: Continue spironolactone twice. Continue aspirin. Continue atorvastatin. Continue metoprolol 25 p.o. b.i.d. Continue DVT prophylaxis. Continue methylprednisolone as per Pulmonary and levothyroxine. We will start Robitussin Cough p.r.n. We will check potassium on Friday. Little bit prominent encephalization, so we will give 40 of Lasix stat p.o. We will give 40 mg from tomorrow, and we will give one [address]. [address] Kam for providing us the opportunity in taking care of Cinthya Kimball. Jefferson Levine MD [facility] # [id number]
[2018-04-17] MEDS: guaiFENesin-Codeine 100-10mg/5ml Syrup (5 ml) UD PO PRN (21:23)
--- NOTE | 2018-04-18 00:36 | PN ---
DATE: 04/17/2018 SUBJECTIVE: The patient is a 77-year-old female. The patient was seen and examined at the bedside on 04/17/2018. Looking comfortable. Doing physical therapy. No fever. No chills. No hematuria. No hematochezia. No swelling of the legs. No chest pain. No palpitation. No headache. No dizziness. PHYSICAL EXAMINATION VITAL SIGNS: Blood pressure 99/53, pulse 72, temperature 98, and oxygen saturation 98%. HEENT: Head; normocephalic, atraumatic. Eyes; PERRLA. Extraocular muscles are intact. Conjunctivae clear. Nose patent. Mucous membranes moist. NECK: Supple. No carotid bruit. No JVD or thyromegaly. CHEST: Bilaterally symmetrical. HEART: S1 and S2, positive. LUNGS: Clear to auscultation. ABDOMEN: Soft. Bowel sounds present. No organomegaly. EXTREMITIES: No edema. No cyanosis. NEUROLOGICAL: The patient is awake and alert. Moving all 4 extremities. No focal deficit. MEDICATIONS: Tylenol, DuoNeb, Brovana, aspirin, Cepacol, Tessalon Perles, Pulmicort, Colace, Lovenox, Pepcid, Protonix and Spiriva. LABORATORY DATA: We do not have recent labs today, but I reviewed old labs. ASSESSMENT AND PLAN: Ms. Cinthya Kimball is a 77-year-old lady with multiple medical problem. Has chronic obstructive pulmonary disease, congestive heart failure, hypothyroidism, pancreatitis, anxiety, depression, cellulitis, history of pacemaker placement, hyperglycemia, coronary artery disease, and nicotine dependency. The patient is getting physical therapy. Sleep apnea precautions. Gastrointestinal and deep venous thrombosis prophylaxis. done chest x-ray today. No active disease. Extremity Doppler done. No sonographic evidence for deep vein thrombosis in the visualized segment of both lower extremities. Repeat labs. We will follow up. Guillermina Kam MD [facility]
[2018-04-18] MEDS: MethylPREDNISolone 40 mg Vial IVP SCH ×2 (05:57→17:33)
[2018-04-18] MEDS: Enoxaparin 40 mg Syringe SC SCH (06:31)
[2018-04-18] MEDS: Pantoprazole 40 mg EC Tab PO SCH (06:32)
[2018-04-18] MEDS: Levothyroxine 100 MCG TAB PO SCH (06:43)
[2018-04-18 07:11] LABS: BASO # 0.15 K/mm3 (0.0-2.0); BASO % 1.1 % (0.0-3.0); GRAN # 9.94 (1.4-6.5); GRAN % 73.1 % (50.0-68.0); HEMOGLOBIN 13.3 g/dL (12.0-16.0); LYMPH # 2.3 (1.2-3.4); LYMPH % 16.7 % (22.0-35.0); MEAN CELL VOLUME 93.8 fl (80.0-105.0); MEAN CORPUSCULAR HEMOGLOBIN 30.7 pg (25.0-35.0); MEAN CORPUSCULAR HGB CONC 32.8 g/dl (31.0-37.0); MEAN PLATELET VOLUME 9.8 fl (7.0-11.0); MONO # 1.2 (0.1-0.6); MONO % 9.1 % (1.0-6.0); RBC 4.33 10^6/uL (3.5-6.1); RED CELL DISTRIBUTION WIDTH 14.2 % (11.5-14.5); WHITE BLOOD COUNT 13.6 10^3/uL (4.5-11.0)
[2018-04-18] MEDS: Arformoterol 15 mcg/2 ml Inh Sol IH SCH ×2 (07:29→19:48)
[2018-04-18] MEDS: Budesonide 0.5 mg/2 ml Inhal Susp UD IH SCH ×2 (07:29→19:48)
[2018-04-18] MEDS: Albuterol-Ipratrop 3 mg / 0.5 (3 ml) UD IH SCH ×3 (07:30→19:48)
[2018-04-18 07:41] LABS: ALB/GLOB RATIO 1.2 (1.1-1.8); ALBUMIN 3.4 g/dL (3.0-4.8); CALCIUM 9.8 mg/dL (8.4-10.5)
[2018-04-18] MEDS: Cholecalciferol 1,000 INTLU TAB PO SCH (10:40)
[2018-04-18] MEDS: Tiotropium 18 mcg Cap For Inhalation IH SCH (10:40)
--- NOTE | 2018-04-18 14:07 | CON ---
DATE: 04/18/2018 HISTORY OF PRESENT ILLNESS: The patient is a 77-year-old female, who is being seen by Psychiatry. I reviewed Dr. Gates's notes and I met with the patient at bedside. The patient indicated that she is feeling better. She is alert and oriented to month, year, and location. She denies any hallucinations or suicidal thoughts, feels that Xanax has been helping her for her anxiety. She denies any side effects from her other medications and indicates that she has been satisfied with treatment regimen given to her thus far. Affect is constricted; however, there is appropriate reactivity. She is not hallucinating. She denies perceptual disturbance and there is no incidence of the patient responding to internal stimuli on the unit, delusions were not elicited. Her insight and judgement are fair and the patient does not present to be in acute danger to herself or others. MEDICATIONS: Reviewed. Psychiatrically, the patient is taking Xanax 0.25 mg b.i.d. and Prozac 10 mg. Labs and vitals were reviewed. IMPRESSION: Rule out major depressive disorder, rule out mood disorder due to general medical condition. PLAN: Continue Xanax 0.25 mg b.i.d. as well as Prozac 10 mg daily. There is no acute indication for changes from medications at this time. The patient indicates plan to follow up with outpatient Psychiatry once she is medically cleared. Psychiatry continues to followup with the patient per Dr. Gates. Next followup will be on 04/20/2018. Yohannes Seymour MD
[2018-04-18] MEDS: guaiFENesin-Codeine 100-10mg/5ml Syrup (5 ml) UD PO PRN (21:21)
--- NOTE | 2018-04-18 21:34 | PN ---
DATE: 04/18/2018 PULMONARY PROGRESS NOTE REFERRING PHYSICIAN: Dr. Kam. SUBJECTIVE: The patient is sitting up in a chair or recliner. Legs are up and elevated, feels okay. Still has mild cough. No sputum production. No nausea, vomiting, or diarrhea. Persistent leg swelling. PHYSICAL EXAMINATION: VITAL SIGNS: Temperature is 98, heart rate 64, respiratory rate is 20, blood pressure 112/60, pulse ox 95% on room air. HEENT: Mucous membranes. Crowded airway. NECK: Supple. No JVD. CARDIOPULMONARY: S1 and S2. LUNGS: Have a fair airflow with rhonchi. ABDOMEN: Soft, nontender. No organomegaly. EXTREMITIES: Does have edema. NEUROLOGICAL: Awake and follows simple command. LABORATORY DATA: Shows hemoglobin 13.3, hematocrit 40.6, WBC 13.6, platelet count is 342. Sodium 134, potassium 5.2, chloride 97, bicarbonate 31, BUN 44, creatinine 1.1, glucose 142, calcium 9.8, AST 29, ALT 43 and alk phos is 66, albumin is 3.4. Procalcitonin 0.06. Has a venous Doppler done yesterday which was negative for any DVT. MEDICATIONS: She is on Aldactone 25 mg twice a day, Brovana inhaled twice a day, Cepacol lozenges every 12 hours p.r.n., Colace 100 mg three times a day, DuoNeb every 6 hours, Ecotrin 81 mg daily, Lasix 40 mg daily, Lipitor 10 mg daily metoprolol tartrate 25 mg daily Lovenox 40 mg subcutaneously daily, Lyrica 25 mg twice a day, Pepcid 40 mg at bedtime, Protonix 40 mg daily, Prozac 10 mg daily, Pulmicort inhaled twice a day, Robitussin every 4 hours p.r.n., Solu-Medrol 20 mg every 12 hours., Sonata 5 mg at bedtime, p.r.n., Spiriva inhaled daily, Synthroid 100 mcg daily, Tessalon Perles three times a day, Tylenol p.r.n. basis, vitamin D 100 IU daily, Xanax 0.25 mg twice day p.r.n. IMPRESSION AND PLAN: Chronic obstructive lung disease, congestive heart failure, hypothyroid, history of pancreatitis, anxiety disorder, depression, history of cellulitis, lower extremity, coronary artery disease, nicotine dependent. Pulmonary point of view, doing okay. Continue cough suppressor, bronchodilator, diuretics. Elevate lower extremity. Spoke to nursing staff. Requested to get a MATTHEW stocking during the daytime. Continue therapy. We will follow with you. Jefferson Simmosn MD
[2018-04-19] MEDS: Albuterol-Ipratrop 3 mg / 0.5 (3 ml) UD IH SCH ×3 (03:15→13:38)
[2018-04-19] MEDS: Levothyroxine 100 MCG TAB PO SCH (05:47)
[2018-04-19] MEDS: Pantoprazole 40 mg EC Tab PO SCH (05:47)
[2018-04-19] MEDS: Enoxaparin 40 mg Syringe SC SCH (05:48)
[2018-04-19] MEDS: MethylPREDNISolone 40 mg Vial IVP SCH (05:48)
[2018-04-19] MEDS: Arformoterol 15 mcg/2 ml Inh Sol IH SCH ×2 (07:30→20:15)
[2018-04-19] MEDS: Budesonide 0.5 mg/2 ml Inhal Susp UD IH SCH ×2 (07:31→20:15)
[2018-04-19] MEDS: Tiotropium 18 mcg Cap For Inhalation IH SCH (09:34)
[2018-04-19] MEDS: Cholecalciferol 1,000 INTLU TAB PO SCH (09:35)
--- NOTE | 2018-04-19 21:19 | PN ---
DATE: 04/19/2018 PULMONARY PROGRESS NOTE REFERRING PHYSICIAN: Dr. Kam. SUBJECTIVE: She is out of bed to reclining chair. Night was unremarkable. Denies any headache. No rhinitis. Feels agitated sometime. No nausea. No vomiting. Decreased leg swelling, had a MATTHEW stocking. OBJECTIVE: GENERAL: In no acute distress. VITAL SIGNS: Temp is 98, heart rate is 72, respiratory rate is 18, blood pressure 104/67, pulse ox 96% on room air. HEENT: Moist mucous membranes. No ulcer or thrush noted. NECK: Supple. No JVD. LUNGS: Have a fair airflow with rhonchi. HEART: S1, S2. ABDOMEN: Soft, nontender. No organomegaly. EXTREMITIES: Decreased edema, had a MATTHEW stocking. NEUROLOGICAL: Awake, alert, follows simple commands. MEDICATIONS: She is on Aldactone 25 mg daily, Brovana inhaled twice a day, Cepacol lozenges every 12 hours p.r.n., Colace 100 mg 3 times a day, DuoNeb every 6 hours, Ecotrin 81 mg daily, Lasix 40 mg daily, Lipitor 10 mg daily, metoprolol tartrate 25 mg daily, Lovenox 40 mg subcutaneous daily, Lyrica 25 mg twice a day, Pepcid 40 mg daily, Protonix 40 mg daily, Prozac 10 mg daily, Pulmicort inhaled twice a day, Robitussin with codeine every 4 hours p.r.n., Solu-Medrol 20 mg every 12 hours., Sonata 5 mg at bedtime, p.r.n., Spiriva inhaled daily, Synthroid 100 mcg daily, Tessalon Perles 100 mg 3 times a day, Tylenol p.r.n, vitamin D 1000 International Units daily, Xanax 0.25 mg twice a day p.r.n. LABORATORY DATA: Shows no new lab is available since yesterday. IMPRESSION AND PLAN: Chronic obstructive lung disease, congestive heart failure, hypothyroidism, history of pancreatitis, anxiety disorder, depression, cellulitis of lower extremity, coronary artery disease, nicotine dependent. Pulmonary point of view, doing much better. Decrease Solu-Medrol. Discontinue DuoNeb, only use p.r.n. Continue Brovana. Seen by psychiatrist, started on anti-anxiety medication. Have MATTHEW stocking. Fall precaution. We will recommend outpatient sleep study and pulmonary function test, and we will follow with you. Jefferson Simmons MD
[2018-04-19] MEDS: guaiFENesin-Codeine 100-10mg/5ml Syrup (5 ml) UD PO PRN (21:38)
--- NOTE | 2018-04-20 04:00 | PN ---
DATE: 04/19/2018 SUBJECTIVE: The patient is a 77-year-old female. The patient was seen and examined at bedside on 04/19/2018. The patient was sitting on the bed, feeling better. No cough. No shortness of breath. No nausea or vomiting. No headache. No dizziness. No chest pain. No palpitation. PHYSICAL EXAMINATION: VITAL SIGNS: Temperature 98, heart rate 72, respiratory rate 18, and blood pressure 104/60. HEENT: Head: Normocephalic and atraumatic. Eyes: PERRLA. Extraocular movements intact. Conjunctivae clear. Nose patent. NECK: Supple. No carotid bruit. No JVD or thyromegaly. CHEST: Bilaterally symmetrical. HEART: S1 and S2 positive. LUNGS: Have air flow with rhonchi. HEART: S1 and S2 positive. ABDOMEN: Soft, nontender. No mass. EXTREMITIES: The patient has RAMESH bandages. Swelling is less. NEUROLOGIC: The patient is awake and alert. Follows simple commands. MEDICATIONS: Aldactone, Brovana, Cepacol lozenges, Colace, DuoNeb, Ecotrin, Lasix, Lipitor, Lovenox, Lyrica, Pepcid, Protonix, Pulmicort, Solu-Medrol, Spiriva, and Synthroid. LABORATORY DATA: We do not have recent lab today, but I reviewed old labs. ASSESSMENT AND PLAN: Ms. Kimball is a 77-year-old lady with multiple medical problems, cellulitis of the leg, swelling of the leg, chronic obstructive lung disease, congestive heart failure, hypothyroidism, history of pancreatitis, anxiety, depression, coronary artery disease, and nicotine dependency. The patient is doing much better, getting a tapering dose of Solu-Medrol. Continue Brovana. Seen by the psychiatrist. Started on anti-anxiety medications. MATTHEW velez. Repeat laboratories. We will follow up. Guillermina Kam MD
[2018-04-20] MEDS: Levothyroxine 100 MCG TAB PO SCH (05:35)
[2018-04-20] MEDS: Enoxaparin 40 mg Syringe SC SCH (05:35)
[2018-04-20] MEDS: Pantoprazole 40 mg EC Tab PO SCH (05:35)
[2018-04-20 07:10] LABS: CALCIUM 9.3 mg/dL (8.4-10.5)
[2018-04-20 07:16] LABS: HEMOGLOBIN 14.5 g/dL (12.0-16.0); MEAN CELL VOLUME 94.3 fl (80.0-105.0); MEAN CORPUSCULAR HEMOGLOBIN 31.8 pg (25.0-35.0); MEAN CORPUSCULAR HGB CONC 33.7 g/dl (31.0-37.0); MEAN PLATELET VOLUME 9.7 fl (7.0-11.0); RBC 4.56 10^6/uL (3.5-6.1); RED CELL DISTRIBUTION WIDTH 14.3 % (11.5-14.5); WHITE BLOOD COUNT 14.6 10^3/uL (4.5-11.0)
[2018-04-20] MEDS: Arformoterol 15 mcg/2 ml Inh Sol IH SCH ×2 (07:31→22:10)
[2018-04-20] MEDS: Budesonide 0.5 mg/2 ml Inhal Susp UD IH SCH ×2 (07:31→23:10)
--- NOTE | 2018-04-20 09:29 | PN ---
DATE: 04/18/2018 The patient is 77-year-old female. SUBJECTIVE: The patient was last seen and examined at the bedside on 04/18/2018 and looking comfortable. Did good physical therapy. No fever. No chills. No hematuria. No hematochezia. No swelling of the leg. No headache. No dizziness. No chest pain. No palpitation. Swelling of the leg is little bit better. PHYSICAL EXAMINATION: VITAL SIGNS: Temperature 98, heart rate 54, respiratory rate 18, blood pressure 120/60, and pulse oximetry 95% on room air. HEENT: Head: Normocephalic and atraumatic. Eyes: PERRLA. Extraocular muscles intact. Conjunctivae clear. Nose patent. NECK: Supple. No carotid bruit. No JVD or thyromegaly. CHEST: Bilaterally symmetrical. HEART: S1 and S2 positive. LUNGS: Has fair airflow with the rhonchi. ABDOMEN: Soft, nontender. No organomegaly. EXTREMITIES: Has trace edema. NEUROLOGIC: Awake and alert, follows simple commands. Cranial nerves II through XII are grossly intact. LABORATORY DATA: Hemoglobin 13.3, hematocrit 40.6, white blood cells 13.6, and platelets 342. Sodium 134, potassium 5.2, BUN 44, creatinine 1.1, and glucose 142. MEDICATIONS: Aldactone, Brovana, lozenges, Colace, DuoNeb, Ecotrin, Lyrica, Protonix, and Sonata. ASSESSMENT AND PLAN: Ms. Jigar Mendes is a 77-year-old lady with chronic obstructive lung disease, congestive heart failure, hypothyroidism, history of pancreatitis, anxiety, swelling of the leg, depression, has cellulitis of the lower extremities, coronary artery disease, and nicotine dependency. Getting physical therapy in TCU. Cough is better. Continue vasodilators, diuretics. Discussion done with Physical Therapy team. MATTHEW stockings ordered by Dr. Simmons. GI and DVT prophylaxis, repeat labs. We will follow up. Guillermina Kam MD
[2018-04-20] MEDS: MethylPREDNISolone 40 mg Vial IVP SCH (10:28)
[2018-04-20] MEDS: Tiotropium 18 mcg Cap For Inhalation IH SCH (10:28)
[2018-04-20] MEDS: Cholecalciferol 1,000 INTLU TAB PO SCH (10:29)
--- NOTE | 2018-04-20 13:10 | PN ---
PULMONARY PROGRESS NOTE DATE: 04/20/2018 REFERRING PHYSICIAN: Guillermina Kelly MD SUBJECTIVE: The patient is sitting in arm chair in room, in no acute distress. Reports feeling better, today cough is better, still has some shortness of breath with exertion. No headache, rhinitis, chest pain, abdominal pain, nausea, vomiting, diarrhea or leg pain reported. OBJECTIVE: GENERAL: No acute distress. VITAL SIGNS: Blood pressure 112/70, pulse 104, temperature 98 and oxygen saturation 96%. HEENT: Moist mucous membranes. NECK: Supple. No JVD. LUNGS: Few rhonchi bilaterally. CARDIOVASCULAR: S1 and S2, audible. ABDOMEN: Soft and nontender. No distention. No organomegaly. EXTREMITIES: Decreasing edema to bilateral lower extremities. NEUROLOGIC: Awake, alert and verbal. Follows commands. MEDICATIONS: Reviewed. Tylenol 650 mg every 4 hours p.r.n., Xanax 0.25 mg twice a day p.r.n., Brovana 15 mcg every 12 hours, aspirin 81 mg daily, Lipitor 10 mg at dinner, Cepacol throat lozenges every 2 hours p.r.n., Tessalon Perles 100 mg 3 times a day, Pulmicort 1 mg inhalation every 12 hours, vitamin D 1000 units daily, Colace 100 mg three times a day, Lovenox 40 mg subcutaneous daily, Pepcid 40 mg at bedtime, Prozac 10 mg p.o. daily, Lasix 40 mg p.o. daily, Robitussin with codeine 5 mL every 4 hours p.r.n., Synthroid 100 mcg daily, Solu-Medrol 20 mg IV push daily, metoprolol tartrate 25 mg daily, Protonix 40 mg daily, Lyrica 25 mg twice a day, Aldactone 25 mg twice a day, Spiriva 18 mcg inhalation daily and Sonata 5 mg at bedtime p.r.n. LABORATORY DATA: Reviewed. WBC 14.6, RBC 4.56, hemoglobin 14, hematocrit 43 and platelets 319. Sodium 134, potassium 4.7, chloride 96, carbon dioxide 34, anion gap 9, BUN 42, creatinine 1.1, GFR 48, random glucose 130 and calcium 9.3. IMPRESSION AND PLAN: Chronic obstructive lung disease, congestive heart failure, hypothyroidism, history of pancreatitis, anxiety disorder, depression, cellulitis of lower extremity, coronary artery disease, nicotine-dependant. Pulmonary point of view, the patient is doing well. Continue inhaled bronchodilators. Continue gastric prophylaxis and fall precautions. We will decrease Lyrica to daily at bedtime instead of twice a day. Continue MATTHEW stockings. Continue physical therapy. The patient will need sleep study and full pulmonary function test as outpatient. Thank you for this consult. We will follow with you. Dileep Og APN Jefferson Simmons MD
--- NOTE | 2018-04-20 19:01 | PN ---
DATE: 04/20/2018 REASON FOR CONSULTATION: Cardiac evaluation, history of nonobstructive coronary artery disease, history of pacemaker, admitted with acute exacerbation of COPD, continue in transitional care unit. SUBJECTIVE: The patient denies any chest pain, shortness of breath, or any palpitation. OBJECTIVE: GENERAL: Not in apparent distress. VITAL SIGNS: Temperature afebrile. Heart rate 80, blood pressure 130/80. HEENT: PERRLA intact. NECK: Supple. No carotid bruit or thyromegaly. CHEST: Clear to auscultation. HEART: S1, S2 regular. ABDOMEN: Soft. EXTREMITIES: Clubbing and cyanosis negative. LABORATORY DATA: WBC 14.8, hemoglobin 14, hematocrit 43, and platelet count 319. Chemistries show sodium 134, potassium 4.7, chloride 96, carbon dioxide 34, anion gap 9, BUN 42, and creatinine 1.1. IMPRESSION: A 77-year-old female with past medical history significant for nonobstructive coronary artery disease, pulmonary hypertension, chronic obstructive pulmonary disease, tobacco abuse, sick sinus syndrome, status post pacemaker with degenerative change, pacemaker re-interrogation done, battery life of one and a half years. Recent cardiac catheterization revealed normal coronaries, elevated right-sided pressure. RECOMMENDATIONS: Continue Lasix, continue spironolactone because of history of hypokalemia in the past. To continue aspirin. Continue atorvastatin. Continue enoxaparin, guaifenesin. Continue prednisone. Continue levothyroxine. Continue metoprolol. Continue Lasix daily. We will follow with you. Monitor electrolytes. Thank you Dr. Kam for providing us the opportunity in taking care of the patient, Cinthya Kimball. We will follow with you. Jefferson Levine MD
--- NOTE | 2018-04-20 19:05 | PN ---
DATE: 04/20/2018 FOLLOWUP NOTE SUBJECTIVE: The patient was seen today, discussed with nursing staff, notes reviewed. The patient reported to be depressed and anxious. The patient reported that she was feeling more anxious on the medications, but this hand sign writer is not sure if that is correct or not. The patient reported that she is able to sleep through the night. The patient denied any thoughts of harming herself or others. The patient appeared to be genuinely depressed and unhappy. The patient was to be discharged back home to her family and spend [place] with her daughter and grandson. The patient wants to come back to the hospital for psychiatric admission, we will encourage her to do so. The patient denied hearing voices, denied seeing things, and denied paranoid ideations. VITAL SIGNS: Reviewed. Temperature 97.8, pulse 71, blood pressure 106/63, respiration 14, oxygen saturation is 94. MEDICATIONS: Reviewed. The patient is on Tylenol, Xanax 0.25 mg twice a day as needed, Brovana, aspirin, Lipitor, Cepacol, Pulmicort, vitamin D, Colace, Lovenox, Pepcid, Prozac 10 mg daily, Robitussin, Solu-Medrol, Lopressor, Protonix, gabapentin, Aldactone, Spiriva, and Sonata. LABORATORY DATA: Reviewed. Most recent was from today. WBC cells are elevated. Chemistry reviewed. MENTAL STATUS EXAMINATION: The patient presented to be alert and oriented, pleasant, cooperative, genuinely depressed. Mood described as anxious and depressed. Affect was flat. Thought process concrete. Thought content, the patient denied visual, auditory, or tactile hallucinations. Denied paranoid ideation. The patient denied thoughts of harming herself or others. Denied intent or plan, but reported feeling of hopeless and helpless. IMPRESSION: Major depressive disorder, moderate to severe with no psychosis, rule out generalized anxiety disorder, rule out mood disorder and anxiety disorder due to general medical condition. PLAN: Continue current management, continue current medications. This hand sign writer provided the patient with information about neighborhood clinic, outpatient program, as well as the patient was advised to come back to the hospital in case of worsening of the symptoms. The patient verbalized understanding. At present moment, the patient pose no imminent danger to self or others, but might benefit from psychiatric admission. We will follow up every other day. Thank you very much for letting me participate in care of your patient. Cordelia Gates MD [facility]
[2018-04-20] MEDS: guaiFENesin-Codeine 100-10mg/5ml Syrup (5 ml) UD PO PRN (21:16)
--- NOTE | 2018-04-21 00:08 | PCM.FALL ---
<Shen Odell - Last Filed: 04/21/18 00:00> Post Fall Progress Note - Post Fall Fall Date: 04/21/18 Fall Time: 23:25 - Post Fall Exam Vital Sign: Temp Pulse Resp BP Pulse Ox 97.8 F 71 14 106/63 97 04/20/18 10:00 04/20/18 10:00 04/20/18 10:00 04/20/18 10:26 04/20/18 10:00 Eye Exam: Positive for: Pupils equal, Pupils reactive Impression/Plan: 77 y/o female with PMH of COPD. Code Star was activated as patient was going to the the bathroom without calling for nurse assistance. Patient repoted that her leg slipped on the floor. She denied any CP, SOB, palpitations, no head trauma, no bleeding , no bone pain. Patient is NAD, vitals stable, afebrile. lying on the floor on her left side. No bruises, no tenderness to palpate on extremities, no head trauma. tylenol prn for pain. no imaging required. Shen Odell DO, PGY1 <Servando Morgan N - Last Filed: 04/25/18 03:48> Post Fall Progress Note - Post Fall Exam Vital Sign: Temp Pulse Resp BP Pulse Ox 97.4 F L 82 14 121/76 100 04/22/18 10:12 04/22/18 10:12 04/22/18 10:12 04/22/18 10:49 04/22/18 10:12
--- NOTE | 2018-04-21 02:11 | PN ---
DATE: 04/20/2018 SUBJECTIVE: The patient is seen and examined at the bedside on 04/20/2018 and looking comfortable. No nausea, vomiting, or diarrhea. No hematuria. No hematochezia. No swelling of the legs. No chest pain. No palpitations. No fever. No chills. Bowel movement is good. Sleep is good. PHYSICAL EXAMINATION: VITAL SIGNS: Blood pressure 112/60, pulse 100, temperature 98.6, and oxygenation is 98%. HEENT: Head; normocephalic and atraumatic. Eyes; PERRLA. Extraocular muscles are intact. Conjunctivae clear. Nose patent. NECK: Supple. No carotid bruits, JVD, or thyromegaly. CHEST: Bilaterally symmetrical. HEART: S1 and S2 positive. LUNGS: Clear to auscultation. ABDOMEN: Soft. Bowel sounds present. No organomegaly. EXTREMITIES: No edema. No cyanosis. NEUROLOGIC: The patient is awake, alert, and moving all 4 extremities. No focal deficits. MEDICATIONS: Tylenol, Xanax, Brovana, Lipitor, Cepacol lozenges, Tessalon Perles, Pulmicort, Lasix, Solu-Medrol, Protonix, Lyrica, Aldactone, and Spiriva. LABORATORY DATA: White blood cells 14.6, hemoglobin 14, hematocrit 43, and platelets 318. Sodium 134, potassium 4.7, BUN 14, and creatinine 1.1. ASSESSMENT AND PLAN: Ms. Cinthya Kimball is a 77-year-old lady with multiple medical problems anxiety, chronic obstructive pulmonary disease, asthma, hypercholesterolemia, now started coughing, getting lozenges, Pulmicort; vitamin D deficiency, getting vitamin D; constipation, getting Colace; Pepcid for gastrointestinal prophylaxis; Prozac for depression; hypothyroidism getting Synthroid; hypertension, metoprolol; has chronic obstructive lung disease; congestive heart failure; history of pancreatitis; depression; cellulitis of lower extremity getting better; coronary artery disease; and nicotine dependency. The patient's nurse called me right now. The patient slipped when she was trying to go to the bathroom, but according to nursing staff, examination is negative. No fever. No chills. The patient was put on fall precautions. Gastrointestinal and deep venous thrombosis prophylaxes. The patient with neuro check for 72 hours. We will follow up according to the situation. Guillermina Kam MD [facility]
[2018-04-21] MEDS: Pantoprazole 40 mg EC Tab PO SCH (06:04)
[2018-04-21] MEDS: Levothyroxine 100 MCG TAB PO SCH (06:05)
[2018-04-21] MEDS: Enoxaparin 40 mg Syringe SC SCH (06:06)
[2018-04-21] MEDS: Arformoterol 15 mcg/2 ml Inh Sol IH SCH ×2 (09:02→20:31)
[2018-04-21] MEDS: Budesonide 0.5 mg/2 ml Inhal Susp UD IH SCH ×2 (09:02→20:31)
[2018-04-21] MEDS: Cholecalciferol 1,000 INTLU TAB PO SCH (09:47)
[2018-04-21] MEDS: Tiotropium 18 mcg Cap For Inhalation IH SCH (09:49)
[2018-04-21] MEDS: MethylPREDNISolone 40 mg Vial IVP SCH (09:49)
--- NOTE | 2018-04-21 11:21 | PN ---
DATE: 04/21/2018 REASON FOR CONSULTATION: Cardiac evaluation, history of nonobstructive coronary artery disease, pacemaker, status post acute exacerbation of COPD, continue in transitional care unit. SUBJECTIVE: The patient denies any chest pain, shortness of breath, or any palpitation. OBJECTIVE: GENERAL: Not in apparent distress. Status post fall last night in bathroom. Denies any chest pain. VITAL SIGNS: Temperature afebrile. Heart rate 71, blood pressure 124/62. HEENT: PERRLA. Extraocular muscles intact. NECK: Supple. No carotid bruit or thyromegaly. CHEST: Clear to auscultation. HEART: S1 and S2, regular. ABDOMEN: Soft. EXTREMITIES: Clubbing and cyanosis negative. LABORATORY DATA: Blood work: WBC 14.6, hemoglobin 14, hematocrit 43, platelet count 319. Chemistry showed sodium 134, potassium 4.7, chloride 96, carbon dioxide 34, anion gap of 9, BUN 42, creatinine 1.1. IMPRESSION: A 77-year-old female with past medical history significant for pulmonary hypertension, chronic obstructive pulmonary disease, active tobacco abuse, recently stopped. Recent cardiac catheterization revealed normal coronaries, admitted with acute exacerbation of chronic obstructive pulmonary disease. Last night, the patient fell down in the bathroom. Denies any chest pain, shortness of breath, or any palpitation. No evidence of head trauma noted. No obvious bone injury noted. RECOMMENDATION: Continue to observe. Continue spironolactone. I started Lasix 40 once a day. Continue atorvastatin and metoprolol. We will follow with you. Thank you, Dr. Kam for providing us the opportunity in taking care of the patient, Cinthya Kimball. Jefferson Levine MD
[2018-04-21] MEDS: guaiFENesin-Codeine 100-10mg/5ml Syrup (5 ml) UD PO PRN ×2 (13:30→22:30)
--- NOTE | 2018-04-21 14:32 | RAD ---
PROCEDURE: Radiographs of the pelvis and bilateral hips HISTORY: s/p fall - lower back/hip pain COMPARISON: None. FINDINGS: BONES: Pelvis: Unremarkable. Right hip:Unremarkable. Left hip:Unremarkable. JOINTS: Right hip: Mild degenerative change primarily joint space narrowing. Left hip: Symmetrical degenerative change/joint space narrowing. Sacroiliac Joints: Unremarkable. Pubic symphysis: Unremarkable. SOFT TISSUES: Normal. OTHER FINDINGS: None. IMPRESSION: No significant or acute findings to account for/ related to the clinical presentation.
--- NOTE | 2018-04-21 20:29 | PN ---
DATE: 04/21/2018 SUBJECTIVE: The patient is a 77-year-old female. The patient is seen and examined at the bedside on 04/21/2018, looking comfortable. No fever, no chills. No hematuria. No hematochezia. No swelling of the legs. No chest pain. No palpitations. No headache. No dizziness. Feeling generalized pains and aches, status post fall yesterday. PHYSICAL EXAMINATION: VITAL SIGNS: Blood pressure 124/62, pulse 70, respiratory rate 18, and temperature 98.6. HEENT: Head; normocephalic and atraumatic. Eyes; PERRLA. Extraocular muscles are intact. Conjunctivae clear. Nose patent. Mucous membrane moist. NECK: Supple. No carotid bruits, no JVD or thyromegaly. CHEST: Bilaterally symmetrical. HEART: S1 and S2 positive. LUNGS: Clear to auscultation. ABDOMEN: Soft. Bowel sounds present. No organomegaly. EXTREMITIES: No edema. No cyanosis. NEUROLOGIC: The patient is awake, alert, and moving all 4 extremities. No focal deficits. LABORATORY DATA: White blood cells 14.6, hemoglobin 14, hematocrit 43, and platelets 319. Sodium 134, potassium 4.7, BUN 42, and creatinine 1.1. ASSESSMENT AND PLAN: Ms. Cinthya Kimball is a 77-year-old lady with history of leucocytosis, improving. Has history of pulmonary hypertension, chronic obstructive lung disease, active tobacco abuser, recently stopped smoking, status post cardiac catheterization revealed normal coronaries, came with acute exacerbation of chronic obstructive lung disease. The patient had a fall in the bathroom. Denies chest pain or hip pain, but generalized pain. X-rays done, reviewed by me, there is no fracture. The patient to continue fall precautions. The patient is on Lasix, atorvastatin, metoprolol. Getting physical therapy. Gastrointestinal and deep venous thrombosis prophylaxes. Seen by the tool coordinator and pest controller assistant. We will follow. Guillermina Kam MD
--- NOTE | 2018-04-21 21:51 | PN ---
DATE: 04/21/2018 PULMONARY PROGRESS NOTE REFERRING PHYSICIAN: Guillermina Kam MD SUBJECTIVE: She is out of bed to chair. Night was unremarkable. Last night, apparently had a fall, hit her buttock, x-ray is being done. No nausea, no vomiting, no diarrhea. No leg swelling. OBJECTIVE: GENERAL: In no acute distress. VITAL SIGNS: Temperature is 98, heart rate 60, respiratory rate is 14, blood pressure 125/67, pulse ox 97% on 2 liters nasal cannula. HEENT: Moist mucous membrane. Crowded airway. NECK: Supple. No JVD. LUNGS: Have fair airflow, rhonchi. HEART: S1 and S2. ABDOMEN: Soft, nontender, no organomegaly. EXTREMITIES: Decreased edema. NEUROLOGIC: Awake and alert, follows simple command. MEDICATIONS: She is on Aldactone 25 mg twice a day, Brovana inhaled twice a day, Cepacol lozenges every 2 hours, Colace 100 mg 3 times a day, Ecotrin 81 mg daily, Lasix 40 mg daily, Lipitor 10 mg daily, metoprolol tartrate 25 mg daily, Lovenox 40 mg subcu daily, Lyrica 25 mg at bedtime, Pepcid 40 mg at bedtime, Protonix 40 mg daily, Prozac 10 mg daily, Pulmicort inhaled twice a day, Robitussin with Codeine 5 mL every 4 hours p.r.n., Solu-Medrol 20 mg daily, Zolpidem 5 mg at bedtime p.r.n., Synthroid 100 mg daily, Tessalon Perles 3 times a day, Tylenol p.r.n., Ultram 50 mg every 8 hours p.r.n., vitamin D 1000 International Units daily, and Xanax 0.25 mg twice a day p.r.n. LABORATORY DATA: Reviewed and noted. No new lab is available since yesterday. She had a hip and pelvis x-ray done today, which shows no significant or acute finding accounting for related clinical presentation. IMPRESSION: Chronic obstructive lung disease, congestive heart failure, hypothyroid, history of pancreatitis, anxiety disorder, depression, resolving cellulitis of lower extremity, coronary artery disease, nicotine dependent, status post fall. No obvious fracture noted. Pulmonary point of view, doing okay. Continue bronchodilator. Keep head at 45 degrees. Gastric prophylaxis, deep venous thrombosis prophylaxis. Seen by psychiatrist, on benzodiazepine. High risk of fall. Spoke to the patient about it. She expressed understanding. Should call the nurse if she needs to get up in the night or use a walker. Thank you, and we will follow with you. Jefferson Simmons MD
[2018-04-22] MEDS: Pantoprazole 40 mg EC Tab PO SCH (05:49)
[2018-04-22] MEDS: Levothyroxine 100 MCG TAB PO SCH (05:50)
[2018-04-22] MEDS: Enoxaparin 40 mg Syringe SC SCH (05:50)
[2018-04-22] MEDS: Budesonide 0.5 mg/2 ml Inhal Susp UD IH SCH (08:33)
[2018-04-22] MEDS: Arformoterol 15 mcg/2 ml Inh Sol IH SCH (08:33)
[2018-04-22] MEDS ORDERED: Lidocaine 5% Patch TD SCH (10:00)
[2018-04-22 10:13] VITALS: BP 121/76; PULSE 82; RESP 14; TEMP 97.4; O2SAT 100
[2018-04-22] MEDS: MethylPREDNISolone 40 mg Vial IVP SCH (10:52)
[2018-04-22] MEDS: Tiotropium 18 mcg Cap For Inhalation IH SCH (10:54)
[2018-04-22] MEDS: Cholecalciferol 1,000 INTLU TAB PO SCH (10:55)
--- NOTE | 2018-04-22 14:24 | PN ---
DATE: 04/22/2018 PULMONARY PROGRESS NOTE REFERRING PHYSICIAN: Guillermina Kam MD SUBJECTIVE: The patient is sitting in armchair in room. Reports having lower back pain. Reports coughing and shortness of breath that has improved some. No headache, rhinitis, chest pain, abdominal pain, nausea, vomiting, diarrhea, leg pain or leg swelling reported. OBJECTIVE: GENERAL: No acute distress. VITAL SIGNS: Blood pressure 121/76, pulse 82, temperature 97.4, and oxygen saturation 100%. HEENT: Moist mucous membranes. Crowded airway. NECK: Supple. No JVD. LUNGS: Few rhonchi bilaterally. CARDIOVASCULAR: S1 and S2 audible. ABDOMEN: Soft and nontender. No distention. No organomegaly. EXTREMITIES: Decreasing edema to bilateral lower extremities. NEUROLOGIC: Awake, alert, and verbal. Follows commands. MEDICATIONS: Reviewed. Tylenol 650 mg every 4 hours p.r.n., Xanax 0.25 mg twice a day p.r.n., Brovana 15 mcg every 12 hours, aspirin 81 mg daily, Lipitor 10 mg at dinner, Cepacol throat lozenges every 2 hours p.r.n., Tessalon Perles 100 mg three times a day, Pulmicort 1 mg every 12 hours, vitamin D 1000 units daily, Colace 100 mg three times a day, Lovenox 40 mg subcutaneously daily, Pepcid 40 mg at bedtime, Prozac 10 mg daily, Lasix 40 mg daily, Robitussin with codeine 5 mL every 4 hours p.r.n., Synthroid 100 mcg daily, Lidoderm patch topically to affected area, Solu-Medrol 20 mg IV push daily, metoprolol tartrate 25 mg daily, Protonix 40 mg daily, Lyrica 25 mg at bedtime, Aldactone 25 mg twice a day, Spiriva 18 mcg inhalation daily, tramadol 50 mg every 8 hours p.r.n. moderate pain, Sonata 5 mg at bedtime p.r.n. LABORATORY DATA: Reviewed. No new labs since yesterday. IMPRESSION AND PLAN: Chronic obstructive lung disease, congestive heart failure, hypothyroidism, history of pancreatitis, anxiety disorder, depression, resolving cellulitis of lower extremity, coronary artery disease, nicotine dependence, occasionally status post fall, no fracture is noted on x-rays. Pulmonary point of view, continue bronchodilators, gastric prophylaxis, deep venous thrombosis prophylaxis, head of bed elevated at 45 degrees. Will discontinue Lyrica. Fall precautions, the patient is high risk for falls. This patient was seen and examined with Dr. Simmons. Discussed assessment and plan as described above. Thank you for this consult. We will follow with you. Dileep Og APN Jefferson Simmons MD MTDLorna
--- NOTE | 2018-04-22 15:34 | PN ---
DATE: 04/20/2018 REASON FOR CONSULTATION AND FOLLOWUP: Followup cardiac evaluation, history of nonobstructive coronary artery disease, pacemaker status post exacerbation of COPD, continuity of care in transitional care unit. SUBJECTIVE: The patient denies any chest pain, shortness of breath, or any palpitation. OBJECTIVE: GENERAL: Not in apparent distress. back pain as she fell down yesterday in the bathroom. VITAL SIGNS: Temperature afebrile, heart rate 62, blood pressure 121/76. HEENT: PERRLA. Extraocular muscles intact. NECK: Supple. No carotid bruits or thyromegaly. CHEST: Clear to auscultation. HEART: S1 and S2 regular. ABDOMEN: Soft. EXTREMITIES: Clubbing and cyanosis negative. LABORATORY DATA: Blood workup as follows; WBC 14.6, hemoglobin 14.5, hematocrit 43, platelet count 319. Chemistry shows sodium 134, potassium 4.7, chloride 97, carbon dioxide 34, anion gap of 9, BUN 42, and creatinine of 1.1. IMPRESSION: A 77-year-old female with a past medical history significant for tobacco abuse, chronic obstructive pulmonary disease, pulmonary hypertension, recent cardiac catheterization with normal coronaries elevated, right candidate patient, history of sick sinus syndrome, status post pacemaker with degenerative change. Recently interrogation pacemaker shows battery life 1.5 years with acute exacerbation of chronic obstructive pulmonary disease. Now the patient in transitional care unit for continuity of care. The patient fell down day before yesterday in the bathroom, complained of back pain. Denies any chest pain, shortness of breath, or any palpitation. RECOMMENDATIONS: Continue spironolactone. The patient has a history of hypokalemia. Continue . Continue Lasix 40 mg daily, continue atorvastatin, continue metoprolol. Continue DVT prophylaxis. We will follow with you. We will repeat blood workup in the morning. The patient is . Thank you, Dr. Kam for providing us the opportunity in taking care of the patient, Cinthya Kimball. Jefferson Levine MD
== END 2018-04-22 20:23 | disposition home health service (06) | DRG 202 ==
LOC: TRCU 18:40
PROVIDERS: ADMIT Internal Medicine; ATTEND Internal Medicine
PROC: F07Z9FZ Gait Training/Functional Ambulation Treatment using Assistive, Adaptive, Supportive or Protective Equipment (ICD-10-PCS; principal; 2018-04-15)
PROC: F08Z4FZ Home Management Treatment using Assistive, Adaptive, Supportive or Protective Equipment (ICD-10-PCS; 2018-04-15)
PROC: 3E0F7GC Introduction of Other Therapeutic Substance into Respiratory Tract, Via Natural or Artificial Opening (ICD-10-PCS; 2018-04-15)
DX: J20.9 Acute bronchitis, unspecified (principal); J44.0 Chronic obstructive pulmonary disease with (acute) lower respiratory infection; I50.32 Chronic diastolic (congestive) heart failure; J44.1 Chronic obstructive pulmonary disease with (acute) exacerbation; F32.1 Major depressive disorder, single episode, moderate; I11.0 Hypertensive heart disease with heart failure; I25.10 Atherosclerotic heart disease of native coronary artery without angina pectoris; I27.20 Pulmonary hypertension, unspecified; E03.9 Hypothyroidism, unspecified; E55.9 Vitamin D deficiency, unspecified; I08.3 Combined rheumatic disorders of mitral, aortic and tricuspid valves; K59.00 Constipation, unspecified; E87.6 Hypokalemia; E83.42 Hypomagnesemia; Z99.81 Dependence on supplemental oxygen; W01.0XXA Fall on same level from slipping, tripping and stumbling without subsequent striking against object, initial encounter; Y92.230 Patient room in hospital as the place of occurrence of the external cause; Z91.81 History of falling; Z95.0 Presence of cardiac pacemaker; Z87.891 Personal history of nicotine dependence

== ENCOUNTER 2018-04-28 20:26 | Inpatient (IN) | payer MEDICARE, OTHER ==
[2018-04-28 20:39] VITALS: BMI 35.5
[2018-04-28] MEDS ORDERED: Albuterol-Ipratrop 3 mg / 0.5 (3 ml) UD IH STA (21:05)
--- NOTE | 2018-04-28 21:09 | ED PDOC ---
Arrival/HPI - General Chief Complaint: Medical Clearance Time Seen by Provider: 04/28/18 20:39 Historian: Patient - History of Present Illness Narrative History of Present Illness (Text): 04/28/18 21:00 Cinthya Kimball is a 77 year old female, whose past medical history includes CHF, COPD, hypothyroidism, cellulitis, pancreatitis, anxiety, depression, and pacemaker placement, who presented to the Emergency department complaining of chest pain. Patient states she has been experiencing chest pain, shortness of breath, cough, and generalized malaise. Patient denies any nausea, vomiting, diarrhea, urinary symptoms, back pain, neck pain, headache, dizziness, or any other complaints. Symptom Onset: Gradual Symptom Course: Unchanged Activities at Onset: Light Context: Home Past Medical History - Provider Review Nursing Documentation Reviewed: Yes - Infectious Disease Hx of Infectious Diseases: None - Tetanus Immunization Tetanus Immunization: Unknown - Cardiac Hx Cardiac Disorders: Yes Hx Congestive Heart Failure: Yes Hx Hypertension: Yes - Pulmonary Hx Chronic Obstructive Pulmonary Disease (COPD): Yes - Neurological Hx Neurological Disorder: Yes Hx Dizziness: Yes Hx Migraine: Yes - HEENT Hx HEENT Disorder: Yes ([place]) - Renal Hx Renal Disorder: No - Endocrine/Metabolic Hx Hypothyroidism: Yes - Hematological/Oncological Hx Blood Disorders: No - Integumentary Hx Dermatological Disorder: Yes Other/Comment: BILATERAL LE CELLULITIS-REDDENED,ERYTHEMA.DRY SKIN,EDEMA +1.TOP OF FEET +1 PITTING EDEMA. Bruising to b/l lower abd from injections, bruise outer left thigh, multiple moles skin tags to chest , back, neck - Musculoskeletal/Rheumatological Hx Falls: Yes (past) - Gastrointestinal Hx Gastrointestinal Disorders: Yes (reflux/pancreatitis/colon polyps) - Genitourinary/Gynecological Hx Genitourinary Disorders: Yes Hx Reproductive Disorders: No - Psychiatric Hx Psychophysiologic Disorder: Yes Hx Anxiety: Yes Hx Depression: Yes Hx Substance Use: No - Surgical History Hx Cardiac Catheterization: Yes Hx Cholecystectomy: Yes Hx Orthopedic Surgery: Yes (Right knee surgery acl repair) Other/Comment: carpal tunnel right hand, colonoscopies, left neck tumor, pacemaker 1999, generator change 2007, cardiac ablation, b/l cataract sx, t&a - Anesthesia Hx Anesthesia: Yes Hx Anesthesia Reactions: No Hx Malignant Hyperthermia: No - Suicidal Assessment Feels Threatened In Home Enviroment: No Family/Social History - Physician Review Nursing Documentation Reviewed: Yes Family/Social History: Unknown Family HX Smoking Status: Former Smoker Hx Alcohol Use: No Hx Substance Use: No Allergies/Home Meds Allergies/Adverse Reactions: Allergies levofloxacin [From Levaquin] Allergy (Severe, Verified 11/14/17 14:27) ANAPHYLAXIS Home Medications: Home Meds Medication Instructions Recorded Confirmed Cholecalciferol (Vitamin D3) 1,000 iu PO DAILY 09/01/15 04/14/18 [Vitamin D3] Levothyroxine [Synthroid] 100 mcg PO DAILY 09/01/15 04/14/18 Review of Systems - Physician Review All systems were reviewed & negative as marked: Yes - Review of Systems Constitutional: Other (+generalized malaise) Eyes: Normal ENT: Normal Respiratory: SOB, Cough Cardiovascular: Chest Pain Gastrointestinal: Normal. absent: Abdominal Pain, Diarrhea, Nausea, Vomiting Genitourinary Female: Normal. absent: Dysuria, Frequency, Hematuria, Urine Output Changes Musculoskeletal: Normal. absent: Back Pain, Neck Pain Skin: Normal. absent: Rash Neurological: Normal. absent: Headache, Dizziness Endocrine: Normal Hemo/Lymphatic: Normal Psychiatric: Normal Physical Exam Vital Signs Reviewed: Yes Vital Signs Temp Pulse Resp BP Pulse Ox 04/28/18 20:40 98 F 78 18 107/62 98 Temperature: Afebrile Blood Pressure: Normal Pulse: Regular Respiratory Rate: Normal Appearance: Positive for: Well-Appearing, Non-Toxic, Comfortable Pain Distress: None Mental Status: Positive for: Alert and Oriented X 3 - Systems Exam Head: Present: Atraumatic, Normocephalic Pupils: Present: PERRL Extroacular Muscles: Present: EOMI Conjunctiva: Present: Normal Mouth: Present: Moist Mucous Membranes Neck: Present: Normal Range of Motion Respiratory/Chest: Present: Rhonchi (Rhonchi bilaterally). No: Respiratory Distress, Accessory Muscle Use Cardiovascular: Present: Regular Rate and Rhythm, Normal S1, S2. No: Murmurs Abdomen: No: Tenderness, Distention, Peritoneal Signs Back: Present: Normal Inspection Upper Extremity: Present: Normal Inspection. No: Cyanosis, Edema Lower Extremity: Present: Normal Inspection. No: Edema Neurological: Present: GCS=15, CN II-XII Intact, Speech Normal Skin: Present: Warm, Dry, Normal Color. No: Rashes Psychiatric: Present: Alert, Oriented x 3, Normal Insight, Normal Concentration Medical Decision Making ED Course and Treatment: 04/28/18 21:00 Impression: 77 year old female complaining of chest pain, shortness of breath, cough, and generalized malaise. Plan: -- EKG -- Chest X-ray -- Labs, cardiac enzymes, BNP -- Duoneb -- Reassess and disposition Prior Visits: Notes and results from previous visits were reviewed. Progress Notes: Reviewed EKG, paced rhythm at 60 bpm[address] Non-specific ST/T wave changes. 04/28/18 22:47 Chest X-ray reviewed, shows no acute processes. 04/29/18 00:[address] Ellsworth, covering for Dr. Kam, who is aware and agrees with plan. Pt will go to Telemetry observation for chest pain, COPD, CHF under Dr. Kam's service. Requests Dr. Simmons and Dr. Solomon on consult. - Lab Interpretations I have reviewed the lab results: Yes - RAD Interpretation Radiology Orders: 04/28/18 21:04 CHEST PORTABLE [RAD] Stat Ore Dressing Engineer: ED Physician - EKG Interpretation Interpreted by ED Physician: Yes Type: 12 lead EKG - Medication Orders Current Medication Orders: Albuterol/Ipratropium (Duoneb 3 Mg/0.5 Mg (3 Ml) Ud) 3 ml IH ONCE STA Stop: 04/28/18 21:06 - Scribe Statement The provider has reviewed the documentation as recorded by the Scribe Rupa Tate Provider Scribe Attestation: All medical record entries made by the Scribe were at my direction and personally dictated by me. I have reviewed the chart and agree that the record accurately reflects my personal performance of the history, physical exam, medical decision making, and the department course for this patient. I have also personally directed, reviewed, and agree with the discharge instructions and disposition. Disposition/Present on Arrival - Present on Arrival Any Indicators Present on Arrival: No History of DVT/PE: No History of Uncontrolled Diabetes: No Urinary Catheter: No History of Decub. Ulcer: No History Surgical Site Infection Following: Orthopedic Procedures - Disposition Have Diagnosis and Disposition been Completed?: Yes Diagnosis: COPD exacerbation, CHF (congestive heart failure), Chest pain Disposition: HOSPITALIZED Disposition Time: 00:26 Condition: STABLE Discharge Instructions (ExitCare): Heart Failure (ED), Chest Pain (ED) Forms: [employer] ([place])
[2018-04-28 21:42] LABS: ALB/GLOB RATIO 1.3 (1.1-1.8); ALBUMIN 4.5 g/dL (3.0-4.8); CALCIUM 10.3 mg/dL (8.4-10.5)
[2018-04-28 21:50] LABS: HEMOGLOBIN 16.1 g/dL (12.0-16.0); INR 0.98; MEAN CELL VOLUME 91.6 fl (80.0-105.0); MEAN CORPUSCULAR HEMOGLOBIN 32.1 pg (25.0-35.0); MEAN CORPUSCULAR HGB CONC 35.1 g/dl (31.0-37.0); MEAN PLATELET VOLUME 10.3 fl (7.0-11.0); PARTIAL THROMBOPLASTIN TIME 29.9 Seconds (25.1-36.5); PROTHROMBIN TIME 11.2 SECONDS (9.4-12.5); RBC 5.01 10^6/uL (3.5-6.1); RED CELL DISTRIBUTION WIDTH 14.4 % (11.5-14.5)
[2018-04-28 21:52] LABS: TROPONIN I 0.03 ng/mL
[2018-04-29] MEDS ORDERED: Albuterol-Ipratrop 3 mg / 0.5 (3 ml) UD IH STA (00:19)
[2018-04-29] MEDS ORDERED: MethylPREDNISolone 40 mg Vial IVP ONE (00:19)
[2018-04-29] MEDS ORDERED: Albuterol-Ipratrop 3 mg / 0.5 (3 ml) UD IH PRN (00:25)
[2018-04-29] MEDS ORDERED: DiphenhydrAMINE 50 mg/ml Inj IVP ONE (02:35)
[2018-04-29] MEDS ORDERED: MethylPREDNISolone Depo 40 mg/ml Inj IM ONE (08:18)
[2018-04-29] MEDS ORDERED: Bupivacaine 0.5% Inj(30mL) IJ ONE (08:18)
--- NOTE | 2018-04-29 09:11 | RAD ---
Date of service: 04/28/2018 HISTORY: sob COMPARISON: 04/17/2018 FINDINGS: LUNGS: No active pulmonary disease. PLEURA: No significant pleural effusion identified, no pneumothorax apparent. CARDIOVASCULAR: No aortic atherosclerotic calcification present. Normal cardiac size. No pulmonary vascular congestion. OSSEOUS STRUCTURES: No significant abnormalities. VISUALIZED UPPER ABDOMEN: Normal. OTHER FINDINGS: Dual lead pacemaker IMPRESSION: No active disease.
[2018-04-29] MEDS: Cholecalciferol 1,000 INTLU TAB PO SCH (10:07)
--- NOTE | 2018-04-29 10:07 | CARD ---
APPROVED REPORT Date of service: 04/28/2018 EKG Measurement Heart [id number] <Conclusion> Electronic atrial pacemaker Rightward axis ST & T wave abnormality, consider anterior ischemia or digitalis effect Abnormal ECG
[2018-04-29] MEDS: Levothyroxine 100 MCG TAB PO SCH (10:14)
--- NOTE | 2018-04-29 10:46 | CT ---
Date of service: 04/29/2018 PROCEDURE: CT of the right hip without contrast HISTORY: trochateric tendernis COMPARISON: TECHNIQUE: Radiation dose: Total exam DLP = 714.52 mGy-cm. This CT exam was performed using one or more of the following dose reduction techniques: Automated exposure control, adjustment of the mA and/or kV according to patient size, and/or use of iterative reconstruction technique. FINDINGS: The right hip is unremarkable with no joint space narrowing or osteophyte formation. There is no fracture. There is no evidence of trochanteric bursitis. There is a small collection of air in the subcutaneous fat adjacent to the greater trochanter. This most likely represents an injection site. IMPRESSION: Negative study
--- NOTE | 2018-04-29 17:13 | CON ---
DATE: 04/29/2018 PULMONARY CONSULT NOTE REFERRING PHYSICIAN: Guillermina Kam MD REASON FOR CONSULT: Shortness of breath, cough, COPD. HISTORY OF PRESENT ILLNESS: This is a 77-year-old female known to us from previous admission, the past medical history significant for chronic obstructive pulmonary disease, CHF, hypothyroidism, history of nicotine addiction, coronary artery disease, history of pacemaker placement. The patient was recently discharged from [facility] for rehabilitation, presented to the emergency room complaining of chest pain, shortness of breath, cough, and malaise. Today, the patient seen after having CAT scan done, reports right lower back/hip pain. Reports shortness of breath with exertion. No reported cough, headache, rhinitis, chest pain, abdominal pain, nausea, vomiting, diarrhea, leg pain or leg swelling. PAST MEDICAL HISTORY: CHF; COPD, the patient has oxygen at home; hypothyroidism; cellulitis; pancreatitis; anxiety; depression; right knee surgery; pacemaker placement. ALLERGIES: LEVOFLOXACIN. FAMILY HISTORY: No cardiopulmonary history reported. SOCIAL HISTORY: Former smoker. No EtOH abuse. No illicit drug use. MEDICATIONS: Tylenol 650 every 6 hours p.r.n., DuoNeb 3 mL inhalation every 4 hours p.r.n., aspirin 81 mg p.o. daily, Lipitor 10 mg at dinner, Tessalon Perles 100 mg 3 times a day, vitamin D 1000 units daily, Lasix 40 mg daily, Motrin 600 mg every 6 hours p.r.n., Synthroid 100 mcg daily, Protonix 40 mg IV push daily, spironolactone 25 mg p.o. daily. REVIEW OF SYSTEMS: No headache, rhinitis, chest pain, abdominal pain, nausea, vomiting, diarrhea, leg pain reported. The patient reports having occasional cough, reports shortness of breath, and bilateral lower extremity edema at times. PHYSICAL EXAMINATION: GENERAL: No acute distress. VITAL SIGNS: Blood pressure 121/46, pulse 71, temperature 97.8, oxygen saturation 96%. HEENT: Moist mucous membranes. Crowded airway. Mallampati score of 4. NECK: Supple. No JVD. RESPIRATORY: Few rhonchi bilaterally. CARDIOVASCULAR: S1, S2 audible. ABDOMEN: Soft, nontender. No distension. No organomegaly. EXTREMITIES: +1 bilateral lower extremity edema, erythema noted to bilateral lower extremity. NEUROLOGIC: Awake, alert, verbal, follows commands. LABORATORY DATA: WBC 13, RBC 5.01, hemoglobin 16, hematocrit 45.9, platelets 256. PT 11.2, INR 0.98, APTT 29.9. Sodium 130, potassium 4.6, chloride 85, carbon dioxide 33, anion gap 16, BUN 54, creatinine 1.1, GFR 48, random glucose 163, calcium 10.3, total bilirubin 1.2. AST 34. ALT 46, alkaline phosphatase 96, lactate dehydrogenase 560, total creatinine kinase 30, troponin 0.03, proBNP is 633, total protein 7.9, albumin 4,5, globulin 3.4, albumin-globulin ratio 1.3. DIAGNOSTIC DATA: Electrocardiogram, ST and T waves abnormality. Chest x-ray, no active disease. Head CT, negative study. IMPRESSION AND PLAN: Exacerbation of chronic obstructive pulmonary disease, congestive heart failure, hypothyroidism, anxiety, depression, coronary artery disease. We will start Brovana and Pulmicort nebulizer treatment. We will put the patient on steroids IV. We will add Lovenox for DVT prophylaxis, continue gastric prophylaxis. We do suspect some component of sleep apnea syndrome in this patient. Head of bed elevated 45 degrees, sleep apnea precaution, recommend sleep study and full pulmonary function test as outpatient. This patient was seen and examined with Dr. Simmons. Discussed assessment and plan as described above. Thank you for this consult. We will follow with you. Dileep Og APN Jefferson Simmons MD BRANDT
--- NOTE | 2018-04-29 19:25 | CON ---
DATE: 04/29/2018 ORTHOPEDIC CONSULTATION A 77-year-old female in room 277, bed 2. It is 8 a.m. Patient is being seen for a right hip pain for approximately a week and a half and she has good range of motion of the hip joint itself, but is very tender over the greater trochanteric area of the right hip, same side that she had a total knee 20 years ago. As soon as I touched the right hip at the greater trochanter, she has exquisite pain with no radiation of pain. The x-rays of the hip show no fracture. So, I am going to inject the right hip with Depo-Medrol and Marcaine for right hip trochanteric bursitis and see how she does. If she improves then nothing else needs to done, but if she does not get better, we will have to get a CAT scan or MRI later. In the meantime, after the injection, we could get her up out of bed to mobilize her, but there is no signs of sciatica and no sign of a fracture, so we will currently treat her for trochanteric bursitis of her right hip by injecting her with Depo-Medrol and Marcaine. Herrera Rick DO
[2018-04-29] MEDS: Budesonide 0.5 mg/2 ml Inhal Susp UD IH SCH (20:50)
[2018-04-29] MEDS: Arformoterol 15 mcg/2 ml Inh Sol IH SCH (20:50)
--- NOTE | 2018-04-29 21:21 | HP ---
DATE OF EXAM: 04/29/[address] Danielle covering for Dr. Guillermina Kam. HISTORY OF PRESENT ILLNESS: The patient is a 77-year-old female admitted through the emergency department on 04/29/2018 with complaints of chest pain and shortness of breath. The patient denied any nausea, vomiting or diaphoresis. She is admitted to the telemetry unit for further evaluation and management. PAST MEDICAL HISTORY: Includes COPD, CHF, hypothyroidism, coronary artery disease. PAST SURGICAL HISTORY: The patient is status post pacemaker placement and has a history of degenerative joint disease with right knee surgery. FAMILY HISTORY: Noncontributory. ALLERGIES: THE PATIENT IS ALLERGIC TO LEVAQUIN WITH AN ANAPHYLACTIC REACTION. CURRENT MEDICATIONS: Include spironolactone 25 mg daily, Brovana 15 mcg inhaled every 12 hours, DuoNebs, Ecotrin 81 mg daily, Lasix 40 mg daily, Lipitor 10 mg daily, Solu-Medrol 40 mg IV every 12 hours, and vitamin D as well as Protonix 40 mg IV daily. SOCIAL HISTORY: The patient has a history of tobacco use, quit 3 years ago. There is no history of alcohol use. REVIEW OF SYSTEMS: Essentially as above. There is no hemoptysis. No fever, no chills. No edema, no jaundice. PHYSICAL EXAMINATION: GENERAL: The patient is a well-developed female in no acute distress. VITAL SIGNS: Blood pressure 121/46, temperature 97.8, pulse 71, respiratory rate 20. HEENT: Head is normocephalic, atraumatic. Pupils equal, round, reactive to light. Extraocular movements intact. NECK: Supple. No thyromegaly. No carotid bruit. No adenopathy. LUNGS: Show a few scattered rales. HEART: Regular rate and rhythm. ABDOMEN: Soft, nontender. Bowel sounds are normoactive. EXTREMITIES: Without cyanosis, clubbing or edema. She complains of some lower back and right hip discomfort with decreased range of motion in the lower extremities. NEUROLOGIC: The patient is awake and oriented without focal sensory or motor deficits. SKIN: Warm and dry. LABORATORY DATA: WBC 13, hemoglobin 16.1, hematocrit 45.9. Sodium 130, potassium 4.6, chloride 85, CO2 of 33, BUN 54, creatinine 1.1, glucose 163. BNP is slightly elevated at 633. Troponin is 0.03. CPK is 30. CT scan of the hip was performed which showed an unremarkable right hip. Chest x-ray showed no active disease. IMPRESSION: 1. Chest pain, rule out coronary artery disease/ischemia. 2. Chronic obstructive pulmonary disease. 3. Hyperglycemia. 4. Hypothyroidism. 5. Right hip and lower back pain. PLAN: The patient is admitted to the telemetry unit. Cardiology consultation with Dr. Levine, Pulmonary consultation with Dr. Simmons and Orthopedic consultation with Dr. Rick. Physical therapy and social work for discharge planning. TO Willard MD
[2018-04-29] MEDS ORDERED: DiphenhydrAMINE 50 mg/ml Inj IVP STA (23:33)
[2018-04-30 07:20] LABS: GRAN # 9.19 (1.4-6.5); GRAN % 90.2 % (50.0-68.0); HEMOGLOBIN 16.2 g/dL (12.0-16.0); LYMPH # 0.6 (1.2-3.4); LYMPH % 5.7 % (22.0-35.0); MEAN CELL VOLUME 89.6 fl (80.0-105.0); MEAN CORPUSCULAR HEMOGLOBIN 31.6 pg (25.0-35.0); MEAN CORPUSCULAR HGB CONC 35.3 g/dl (31.0-37.0); MEAN PLATELET VOLUME 9.8 fl (7.0-11.0); MONO # 0.4 (0.1-0.6); MONO % 4.1 % (1.0-6.0); PLATELET COUNT 230 10^3/uL (120.0-450.0); RBC 5.12 10^6/uL (3.5-6.1); RED CELL DISTRIBUTION WIDTH 14.2 % (11.5-14.5); WHITE BLOOD COUNT 10.2 10^3/uL (4.5-11.0)
[2018-04-30 07:40] LABS: CALCIUM 10.3 mg/dL (8.4-10.5)
[2018-04-30 08:00] LABS: LYMPHOCYTE 5 % (22.0-35.0); MONOCYTE 3 % (1.0-6.0); NEUTROPHIL 92 % (50.0-70.0); PLATELET ESTIMATE NORMAL (NORMAL)
[2018-04-30] MEDS: Arformoterol 15 mcg/2 ml Inh Sol IH SCH ×2 (08:31→20:47)
[2018-04-30] MEDS: Budesonide 0.5 mg/2 ml Inhal Susp UD IH SCH ×2 (08:32→20:47)
--- NOTE | 2018-04-30 08:45 | CON ---
DATE: 04/29/2018 CARDIOLOGY CONSULTATION REASON FOR CONSULTATION: Follow up cardiac evaluation, admitted with chest pain, right hip pain, history of nonobstructive coronary artery disease, history of COPD with asthma, status post pacemaker. BRIEF CLINICAL HISTORY: This is a 77-year-old female with past medical history significant for smoking quit 3-4 years ago, history of essentially normal coronary artery status post cardiac catheterization, mild pulmonary hypertension, history of sick sinus syndrome status post permanent pacemaker, who was recently discharged from the hospital with acute exacerbation of COPD and bronchitis, came in with chest pain and right hip pain. Chest pain is a tenderness on the front of the chest. PAST MEDICAL HISTORY: Significant for COPD; CHF; diastolic dysfunction; atrial fibrillation, paroxysmal; anxiety disorder; depression; hypertension; status post permanent pacemaker. PAST SURGICAL HISTORY: Significant for pacemaker, knee surgery and history of cardiac catheterization. PREVIOUS CARDIAC WORKUP: As follows: The patient had a stress test on 05/30/2017 that showed ischemia. The patient underwent subsequently cardiac catheterization on 06/11/2017 that shows normal coronaries, normal LV function, ejection fraction 60%, EDP was in the range of 20. The patient has also right heart catheterization done at that time that revealed RA 15, RV 44/15, PA 40/25, mean PA 32. Capillary wedge pressure, PCW 24. Coronaries essentially normal. Echo on 06/09/2017 shows systolic function, ejection fraction 55%, [id number] aortic regurgitation, [id number] mitral regurgitation, mild tricuspid regurgitation, RV systolic pressure 35. SOCIAL HISTORY: She stopped smoking 3-4 years ago. She used to smoke 50-pack years. She denies any history of alcohol abuse. She denies any history of substance abuse. CURRENT MEDICATIONS: The patient is currently taking at home; methylprednisolone 40 mg every 12 hours, Lyrica, Synthroid, Lasix 40, Prozac, vitamin D3, azithromycin, atorvastatin, and aspirin. REVIEW OF SYSTEMS: As per HPI. PHYSICAL EXAMINATION: As follows; GENERAL: Height of the patient is 5 feet 1 inch, weight of the patient is 188 pounds, body mass index 35.5 kg/m2. VITAL SIGNS: Rest of the examination assessed; temperature afebrile, heart rate , and blood pressure 132/66. HEENT: PERRLA. Extraocular muscles intact. NECK: Supple. No carotid bruit or thyromegaly. CHEST: Clear to auscultation. HEART: S1, S2 regular. ABDOMEN: Soft. EXTREMITIES: Clubbing and cyanosis negative. LABORATORY DATA: WBC 13, hemoglobin 16.1, hematocrit 45.9, platelet count 256. Chemistry shows sodium of 130, potassium 4.6, chloride 85, carbon dioxide 33, anion gap of 16, BUN 54, creatinine 1.1. BNP 633, troponin 0.03. EKG shows V-paced rhythm. IMPRESSION: A 77-year-old female, obese, increased body mass index, history of chronic obstructive pulmonary disease, ex-tobacco abuse, diastolic dysfunction, hypertension, diabetes, history of hypokalemia, admitted with right hip pain and chest pain, history of cardiac catheterization in 05/2017, essential normal coronaries, elevated mild heart pressure. RECOMMENDATIONS: We will ask Dr. Rick for evaluation of hip, possible intraarticular injection of the steroid. Resume medication, treat aggressively for bronchitis. We will follow with you. We will put Dr. Simmons for Pulmonary consult and Dr. Rick for right hip pain. Thank you Dr. Kam for providing us the opportunity in taking care of the patient, Cinthya Kimball. We will follow with you. Jefferson Levine MD
--- NOTE | 2018-04-30 08:53 | PN ---
DATE: 04/30/2018 SUBJECTIVE: The patient had a Depo-Medrol and Marcaine injection to right hip bursitis, it is greater trochanter and she feels much better this morning. The patient should be able to get up and ambulate with a walker with assistance, and the CAT scan showed no fracture of the right hip, so we could comfortably get her up until that the weightbearing is tolerated. Hopefully, if needed i can see her in the office as an outpatient in couple of months. FINAL DIAGNOSIS: The patient had right hip trochanteric bursitis, help with Depo-Medrol injection on 04/29/2018. Herrera Rick DO MTDD
--- NOTE | 2018-04-30 09:33 | CP.PCM.PN ---
Subjective - Date & Time of Evaluation Date of Evaluation: 04/30/18 Time of Evaluation: 06:40 - Subjective Subjective: Awake, alert. anxious, complaining of right back and hip pain Reason for consultation and follow up: Cardiac evaluation of chest pain and shortness of breath, history of CHF, COPD, hypothyroidism, cellulitis, pancreatitis, anxiety, depression, and pacemaker placement Seen and examined by me and Dr. Levine Objective - Vital Signs/Intake and Output Vital Signs (last 24 hours): Temp Pulse Resp BP Pulse Ox 98 F 79 18 132/57 L 99 04/30/18 05:41 04/30/18 05:41 04/30/18 05:41 04/30/18 05:41 04/30/18 05:41 Intake and Output: 04/30/18 04/30/18 06:59 18:59 Intake Total 540 Output Total 1800 Balance -1260 - Medications Medications: Current Medications Acetaminophen (Tylenol 325mg Tab) 650 mg PO Q6H PRN PRN Reason: Pain, moderate (4-7) Albuterol/Ipratropium (Duoneb 3 Mg/0.5 Mg (3 Ml) Ud) 3 ml IH Q4H PRN PRN Reason: Shortness of Breath Arformoterol Tartrate (Brovana) 15 mcg IH [id number] [facility] Last Admin: 04/30/18 08:31 Dose: 15 mcg Aspirin (Ecotrin) 81 mg PO DAILY [facility] Last Admin: 04/29/18 10:11 Dose: 81 mg Atorvastatin Calcium (Lipitor) 10 mg PO DIN [facility] Last Admin: 04/29/18 17:00 Dose: 10 mg Benzonatate (Tessalon Perles) 100 mg PO TID [facility] Last Admin: 04/29/18 17:00 Dose: 100 mg Budesonide (Pulmicort Respules) 0.5 mg IH [id number] [facility] Last Admin: 04/30/18 08:32 Dose: 0.5 mg Cholecalciferol (Vitamin D) 1,000 intlu PO DAILY [facility] Last Admin: 04/29/18 10:07 Dose: 1,000 intlu Enoxaparin Sodium (Lovenox) 40 mg SC DAILY [facility]; Protocol Furosemide (Lasix) 40 mg PO DAILY [facility] Last Admin: 04/29/18 10:11 Dose: 40 mg Ibuprofen (Motrin Tab) 600 mg PO Q6H PRN PRN Reason: Pain, severe (8-10) Last Admin: 04/29/18 02:56 Dose: 600 mg Levothyroxine Sodium (Synthroid) 100 mcg PO DAILY [facility] Last Admin: 04/29/18 10:14 Dose: 100 mcg Methylprednisolone (Solu-Medrol) 40 mg IVP Q12 [facility] Pantoprazole Sodium (Protonix Inj) 40 mg IVP DAILY [facility] Last Admin: 04/29/18 10:14 Dose: 40 mg Spironolactone (Aldactone) 25 mg PO DAILY [facility] Last Admin: 04/29/18 10:09 Dose: 25 mg - Labs Labs: 04/30/18 06:45 04/30/18 06:45 PT 11.2 SECONDS (9.4-12.5) 04/28/18 21:14 INR 0.98 04/28/18 21:14 APTT 29.9 Seconds (25.1-36.5) 04/28/18 21:14 - Constitutional Appears: Non-toxic, No Acute Distress - Head Exam Head Exam: NORMAL INSPECTION - Eye Exam Eye Exam: Normal appearance Pupil Exam: NORMAL ACCOMODATION - ENT Exam ENT Exam: Mucous Membranes Moist - Respiratory Exam Respiratory Exam: Clear to Ausculation Bilateral, NORMAL BREATHING PATTERN - Cardiovascular Exam Cardiovascular Exam: +S1, +S2 Additional comments: PPM - GI/Abdominal Exam GI & Abdominal Exam: Soft, Normal Bowel Sounds - Extremities Exam Additional comments: right hip pain - Neurological Exam Neurological Exam: Alert, Awake, Oriented x3 - Psychiatric Exam Psychiatric exam: Anxious - Skin Skin Exam: Dry, Normal Color, Warm Assessment and Plan - Assessment and Plan (Free Text) Assessment: A 77 year old female who came in to the ER due to chest pain and shortness of breath. History of CHF (diastolic dysfunction), atrial fibrillation,COPD, hypothyroidism, cellulitis, pancreatitis, anxiety, depression, and pacemaker placement for sick sinus syndrome.ex-smoker quit 3-4 years ago. Recently discharged from hospital for exacerbation of COPD and bronchitis. complaints of right hip pain and chest tenderness. Had stress test on 05/2017 with abnormal results. subsequently had cardiac cath on 06/11/17 with normal coronaries, LVEF 60 %. Echo on 06/09/17 showed LVEF 55%, mild to moderate AR/MR, mild TR, RVSP 35mmHg. Troponin 0.03. EKG -V pacing, Chest tenderness more muskuloskeletal. Denies chest pain now but anxious. Plan: Denies chest pain, complaints of right hip pain Anxiuos, claims to take Xanax at home Will start low dose Xanax PRN Heart rate controlled Stable blood pressure Complaining of right hip pain, trochanteric bursitis Had Depo-Medrol and marcaine injection of right hip by Dr. Yates Patient claimed to have some relief On ASA 81 mg daily, Lipitor 10 mg daily, Lovenox 40 mg daily, Synthroid 100 mcg daily,Lasix 40 mg daily,Solumedrol 40 mg BID Aldactone 25 mg daily Continue current treatment Continue current medications Pain management for Physical therapy Will follow up Plan and treatment discussed with Dr. Levine
[2018-04-30] MEDS: Levothyroxine 100 MCG TAB PO SCH (10:03)
[2018-04-30] MEDS: Cholecalciferol 1,000 INTLU TAB PO SCH (10:03)
[2018-04-30] MEDS: Enoxaparin 40 mg Syringe SC SCH (10:04)
[2018-04-30] MEDS: MethylPREDNISolone 40 mg Vial IVP SCH ×2 (10:05→21:26)
[2018-04-30] MEDS: Oxycodone/Acetaminophen 5/325 mg Tab PO PRN (11:03)
--- NOTE | 2018-04-30 12:26 | CP.PCM.PN ---
Subjective - Date & Time of Evaluation Date of Evaluation: 04/30/18 Time of Evaluation: 09:35 - Subjective Subjective: NAD, denies chest pain, no SOB, right hip pain improving Objective - Vital Signs/Intake and Output Vital Signs (last 24 hours): Temp Pulse Resp BP Pulse Ox 98 F 70 20 125/65 99 04/30/18 12:00 04/30/18 12:00 04/30/18 12:00 04/30/18 12:00 04/30/18 05:41 Intake and Output: 04/30/18 04/30/18 06:59 18:59 Intake Total 540 540 Output Total 1800 1800 Balance -1260 -1260 - Medications Medications: Current Medications Acetaminophen (Tylenol 325mg Tab) 650 mg PO Q6H PRN PRN Reason: Pain, moderate (4-7) Albuterol/Ipratropium (Duoneb 3 Mg/0.5 Mg (3 Ml) Ud) 3 ml IH Q4H PRN PRN Reason: Shortness of Breath Alprazolam (Xanax) 0.25 mg PO Q6 PRN; Protocol PRN Reason: Anxiety Stop: 05/07/18 12:01 Last Admin: 04/30/18 11:03 Dose: 0.25 mg Arformoterol Tartrate (Brovana) 15 mcg IH [id number] [facility] Last Admin: 04/30/18 08:31 Dose: 15 mcg Aspirin (Ecotrin) 81 mg PO DAILY [facility] Last Admin: 04/30/18 10:03 Dose: 81 mg Atorvastatin Calcium (Lipitor) 10 mg PO DIN [facility] Last Admin: 04/29/18 17:00 Dose: 10 mg Benzonatate (Tessalon Perles) 100 mg PO TID [facility] Last Admin: 04/30/18 10:03 Dose: 100 mg Budesonide (Pulmicort Respules) 0.5 mg IH [id number] [facility] Last Admin: 04/30/18 08:32 Dose: 0.5 mg Cholecalciferol (Vitamin D) 1,000 intlu PO DAILY [facility] Last Admin: 04/30/18 10:03 Dose: 1,000 intlu Enoxaparin Sodium (Lovenox) 40 mg SC DAILY [facility]; Protocol Last Admin: 04/30/18 10:04 Dose: 40 mg Furosemide (Lasix) 40 mg PO DAILY [facility] Last Admin: 04/30/18 10:00 Dose: 40 mg Levothyroxine Sodium (Synthroid) 100 mcg PO DAILY [facility] Last Admin: 04/30/18 10:03 Dose: 100 mcg Methylprednisolone (Solu-Medrol) 40 mg IVP Q12 [facility] Last Admin: 04/30/18 10:05 Dose: 40 mg Oxycodone/Acetaminophen (Percocet 5/325 Mg Tab) 1 tab PO Q4H PRN PRN Reason: Pain, severe (8-10) Stop: 05/03/18 10:09 Last Admin: 04/30/18 11:03 Dose: 1 tab Pantoprazole Sodium (Protonix Inj) 40 mg IVP DAILY [facility] Last Admin: 04/30/18 10:00 Dose: 40 mg Spironolactone (Aldactone) 25 mg PO DAILY [facility] Last Admin: 04/30/18 10:01 Dose: 25 mg - Labs Labs: 04/30/18 06:45 04/30/18 06:45 PT 11.2 SECONDS (9.4-12.5) 04/28/18 21:14 INR 0.98 04/28/18 21:14 APTT 29.9 Seconds (25.1-36.5) 04/28/18 21:14 - Respiratory Exam Respiratory Exam: Clear to Ausculation Bilateral, NORMAL BREATHING PATTERN - Cardiovascular Exam Cardiovascular Exam: REGULAR RHYTHM - GI/Abdominal Exam GI & Abdominal Exam: Soft, Normal Bowel Sounds - Neurological Exam Neurological Exam: Alert, Awake - Skin Skin Exam: Dry, Warm Assessment and Plan (1) COPD exacerbation Status: Acute (2) Chest pain Status: Acute (3) CHF (congestive heart failure) Status: Chronic (4) Bursitis of right hip Status: Acute - Assessment and Plan (Free Text) Plan: cardiology/pulm/orthopedic follow-up, PT eval for ambulation, SW for DC planing
--- NOTE | 2018-04-30 12:59 | PN ---
DATE: 04/30/2018 PULMONARY PROGRESS NOTE. REFERRING PHYSICIAN: Guillermina Kam MD SUBJECTIVE: The patient is lying in bed with daughter at bedside, reports lower back pain, reports shortness of breath with exertion and occasional cough. No headache, rhinitis, chest pain, abdominal pain, nausea, vomiting, diarrhea, leg pain, or leg swelling reported. OBJECTIVE: GENERAL: In no acute distress. VITAL SIGNS: Blood pressure 132/67, pulse 79, temperature 98, and oxygen saturation 99% on room air. HEENT: Moist mucous membranes, crowded airway, Mallampati score 4. NECK: Supple, no JVD. RESPIRATORY: Few rhonchi bilaterally. CARDIOVASCULAR: S1 and S2 audible. ABDOMEN: Soft and nontender. No distension, no organomegaly. EXTREMITIES: +1 bilateral lower extremity edema. NEUROLOGIC: Awake and alert, verbal, follows commands. LABORATORY DATA: Reviewed. WBC 10.2, RBC 5.12, hemoglobin 16.2, hematocrit 45.9, platelets 230. Sodium 129, potassium 4.2, chloride 86, carbon dioxide 32, anion gap 15, BUN 63, creatinine 1.3, GFR 40, random glucose 195, calcium 7.3, phosphorus 4.3, and magnesium 2. DIAGNOSTIC DATA: Hip CT shows no fractures, no evidence of trochanteric bursitis. There is small collection of air in the subcutaneous tap adjacent to the greater trochanter, most likely represents injection site. It is a negative study. MEDICATIONS: Reviewed. Tylenol 650 mg every 6 hours p.r.n., DuoNeb 3 mL inhalation every 4 hours p.r.n., Xanax 0.25 mg every 6 hours p.r.n., Brovana 60 mcg every 12 hours, aspirin 81 mg daily, Lipitor 10 mg at dinner, Tessalon Perles 100 mg two times a day, budesonide 0.5 mg inhalation every 12 hours, vitamin D 1000 units daily, Lovenox 40 mg subcu daily, Lasix 40 mg daily, Synthroid 100 mcg daily, Solu-Medrol 40 mg IV push every 12 hours, Percocet 5/325 mg one tab every 4 hours p.r.n., Protonix 40 mg IV push daily, and spironolactone 25 mg daily. IMPRESSION AND PLAN: Exacerbation of chronic obstructive pulmonary disease, congestive heart failure, hypothyroidism, anxiety, depression, and coronary artery disease. Continue inhaled bronchodilators, continue steroids, continue deep vein thrombosis prophylaxis and gastric prophylaxis. Suspected sleep apnea syndrome. Sleep apnea precaution. Head of bed elevated at 45 degrees. We will order CT of the spine, thoracic, lumbar, and sacral. The patient had injection, but continues to complain of pain, no relief per the patient this morning. We recommend this patient have full pulmonary function tests and sleep study as outpatient. This patient is seen and examined with Dr. Simmons. Discussed assessment and plan as described above. Thank you for this consult. We will follow with you. Dileep Og APN Jefferson Simmons MD [facility]
--- NOTE | 2018-04-30 15:06 | CP.PCM.APN ---
Subjective - Date & Time of Evaluation Date of Evaluation: 04/30/18 Time of Evaluation: 20:15 - Subjective Subjective: pt seen in bed , complains of right hip pain Review of Systems - Constitutional Constitutional: absent: As Per HPI, Anorexia, Chills, Daytime Sleepiness, Excessive Sweating, Fatigue, Fever, Frequent Falls, Headache, Increased Appetite, Lethargy, Malaise, Night Sweats, Snoring, Sleep Apnea, Weight Gain, Weight Loss, Weakness, Other - Musculoskeletal Musculoskeletal: Limited Range of Motion Additional comments: right hip pain Objective - Vital Signs/Intake and Output Vital Signs (last 24 hours): Temp Pulse Resp BP Pulse Ox 98 F 70 20 125/65 99 04/30/18 12:00 04/30/18 14:00 04/30/18 12:00 04/30/18 12:00 04/30/18 05:41 Intake and Output: 04/30/18 04/30/18 06:59 18:59 Intake Total 540 540 Output Total 1800 1800 Balance -1260 -1260 - Medications Medications: Current Medications Acetaminophen (Tylenol 325mg Tab) 650 mg PO Q6H PRN PRN Reason: Pain, moderate (4-7) Albuterol/Ipratropium (Duoneb 3 Mg/0.5 Mg (3 Ml) Ud) 3 ml IH Q4H PRN PRN Reason: Shortness of Breath Alprazolam (Xanax) 0.25 mg PO Q6 PRN; Protocol PRN Reason: Anxiety Stop: 05/07/18 12:01 Last Admin: 04/30/18 11:03 Dose: 0.25 mg Arformoterol Tartrate (Brovana) 15 mcg IH [id number] [facility] Last Admin: 04/30/18 08:31 Dose: 15 mcg Aspirin (Ecotrin) 81 mg PO DAILY [facility] Last Admin: 04/30/18 10:03 Dose: 81 mg Atorvastatin Calcium (Lipitor) 10 mg PO DIN [facility] Last Admin: 04/29/18 17:00 Dose: 10 mg Benzonatate (Tessalon Perles) 100 mg PO TID [facility] Last Admin: 04/30/18 14:11 Dose: 100 mg Budesonide (Pulmicort Respules) 0.5 mg IH [id number] [facility] Last Admin: 04/30/18 08:32 Dose: 0.5 mg Cholecalciferol (Vitamin D) 1,000 intlu PO DAILY [facility] Last Admin: 04/30/18 10:03 Dose: 1,000 intlu Enoxaparin Sodium (Lovenox) 40 mg SC DAILY [facility]; Protocol Last Admin: 04/30/18 10:04 Dose: 40 mg Furosemide (Lasix) 40 mg PO DAILY [facility] Last Admin: 04/30/18 10:00 Dose: 40 mg Ibuprofen (Motrin Tab) 400 mg PO Q6H [facility] Stop: 05/01/18 02:46 Levothyroxine Sodium (Synthroid) 100 mcg PO DAILY [facility] Last Admin: 04/30/18 10:03 Dose: 100 mcg Methylprednisolone (Solu-Medrol) 40 mg IVP Q12 [facility] Last Admin: 04/30/18 10:05 Dose: 40 mg Oxycodone/Acetaminophen (Percocet 5/325 Mg Tab) 1 tab PO Q4H PRN PRN Reason: Pain, severe (8-10) Stop: 05/03/18 10:09 Last Admin: 04/30/18 11:03 Dose: 1 tab Pantoprazole Sodium (Protonix Ec Tab) 40 mg PO ACB [facility] Spironolactone (Aldactone) 25 mg PO DAILY [facility] Last Admin: 04/30/18 10:01 Dose: 25 mg - Labs Labs: 04/30/18 06:45 04/30/18 06:45 PT 11.2 SECONDS (9.4-12.5) 04/28/18 21:14 INR 0.98 04/28/18 21:14 APTT 29.9 Seconds (25.1-36.5) 04/28/18 21:14 - Constitutional Appears: Non-toxic, No Acute Distress - Head Exam Head Exam: NORMOCEPHALIC - Eye Exam Eye Exam: Normal appearance - Respiratory Exam Respiratory Exam: Decreased Breath Sounds, NORMAL BREATHING PATTERN - Cardiovascular Exam Cardiovascular Exam: +S1, +S2 - GI/Abdominal Exam GI & Abdominal Exam: Soft - Psychiatric Exam Psychiatric exam: Normal Affect, Normal Mood - Skin Skin Exam: Dry, Intact, Normal Color, Warm Assessment and Plan - Assessment and Plan (Free Text) Plan: ITS Impressions Chest X-Ray 04/28/18 21:04 IMPRESSION: No active disease. Hip CT 04/29/18 08:32 IMPRESSION: Negative study 77 yr old with pmh sig for chf, copd, pancreatitis,anxiety, ex-smoker, depression, ppm who reported tot the ED with c/o sob and chest pain as well as Right hip pain now undergoing cardio, orthopedic and pulm evaluationon iv steroids, inhalers and pain medication s/p right hip injection with orthopedics. p.t evaluation recomending TCU, discuss with cm will continue to follow BPCI/TIC - BPCIA/TIC Educated pt/family on BPCIA/CIR/Med to Bed Programs: Yes Flyers given, including CMS Beneficiary letter: Yes Pt/family verbalized understanding & agreed to program: Yes
--- NOTE | 2018-04-30 18:19 | PN ---
DATE: 04/30/2018 REASON FOR CONSULTATION AND FOLLOWUP: Chest pain, hip pain, history of pulmonary hypertension status post pacemaker. This note is addition to dictated by the nurse practitioner, Patsy Varela. SUBJECTIVE: The patient feels a lot better after having steroid injection at the hip. Denies any chest pain. Denies any shortness of breath. Denies any palpitation. PERTINENT LAB TODAY: Hemoglobin 16.2, hematocrit 45.9, and platelets 230. Sodium 129 and potassium 4.2. IMPRESSION: This is a 77-year-old female with a past medical history significant for obesity, diabetes, hypertension, hyperlipidemia, status post cardiac catheterization, normal coronary artery status post pacemaker, recently a pacemaker interrogation was done that revealed battery life of one and half year. No evidence of acute CA. Tenderness in the chest musculoskeletal. I gave yesterday ibuprofen, improved. RECOMMENDATION: Continue gentle diuretics. Continue DVT prophylaxis. We will give one more dose of ibuprofen. Follow up. We will discontinue telemetry. CT lumbar thoracic spine has been ordered. We will follow. We will repeat the blood workup in the morning. Thank you Dr. Kam for providing us the opportunity in taking care of the patient, Cinthya Kimball. Jefferson Levine MD
[2018-05-01 01:09] VITALS: O2SAT 98
[2018-05-01 06:59] LABS: GRAN # 8.98 (1.4-6.5); GRAN % 88.5 % (50.0-68.0); HEMOGLOBIN 16.1 g/dL (12.0-16.0); LYMPH # 0.6 (1.2-3.4); LYMPH % 6.2 % (22.0-35.0); MEAN CELL VOLUME 90.3 fl (80.0-105.0); MEAN CORPUSCULAR HEMOGLOBIN 31.9 pg (25.0-35.0); MEAN CORPUSCULAR HGB CONC 35.4 g/dl (31.0-37.0); MEAN PLATELET VOLUME 9.9 fl (7.0-11.0); MONO # 0.5 (0.1-0.6); MONO % 5.3 % (1.0-6.0); RBC 5.04 10^6/uL (3.5-6.1); RED CELL DISTRIBUTION WIDTH 14.3 % (11.5-14.5); WHITE BLOOD COUNT 10.2 10^3/uL (4.5-11.0)
[2018-05-01 07:24] LABS: CALCIUM 10.5 mg/dL (8.4-10.5)
[2018-05-01] MEDS ORDERED: Pantoprazole 40 mg EC Tab PO SCH (07:30)
[2018-05-01] MEDS: Budesonide 0.5 mg/2 ml Inhal Susp UD IH SCH (07:38)
[2018-05-01] MEDS: Arformoterol 15 mcg/2 ml Inh Sol IH SCH (07:39)
--- NOTE | 2018-05-01 07:53 | CP.PCM.PN ---
Subjective - Date & Time of Evaluation Date of Evaluation: 05/01/18 Time of Evaluation: 06:40 - Subjective Subjective: Awake, alert. feels better, burning sensation on buttocks/rectum, per RN some rashes Reason for consultation and follow up: Cardiac evaluation of chest pain and shortness of breath, history of CHF, COPD, hypothyroidism, cellulitis, p ancreatitis, anxiety, depression, and pacemaker placement Seen and examined by me and Dr. Levine Objective - Vital Signs/Intake and Output Vital Signs (last 24 hours): Temp Pulse Resp BP Pulse Ox 98.7 F 75 19 136/74 98 05/01/18 06:00 05/01/18 06:00 05/01/18 06:00 05/01/18 06:00 05/01/18 06:00 Intake and Output: 05/01/18 05/01/18 06:59 18:59 Intake Total 1780 0 Output Total 1200 Balance 580 0 - Medications Medications: Current Medications Acetaminophen (Tylenol 325mg Tab) 650 mg PO Q6H PRN PRN Reason: Pain, moderate (4-7) Albuterol/Ipratropium (Duoneb 3 Mg/0.5 Mg (3 Ml) Ud) 3 ml IH Q4H PRN PRN Reason: Shortness of Breath Last Admin: 05/01/18 07:38 Dose: 3 ml Alprazolam (Xanax) 0.25 mg PO Q6 PRN; Protocol PRN Reason: Anxiety Stop: 05/07/18 12:01 Last Admin: 04/30/18 18:19 Dose: 0.25 mg Arformoterol Tartrate (Brovana) 15 mcg IH [id number] [facility] Last Admin: 05/01/18 07:39 Dose: 15 mcg Aspirin (Ecotrin) 81 mg PO DAILY [facility] Last Admin: 04/30/18 10:03 Dose: 81 mg Atorvastatin Calcium (Lipitor) 10 mg PO DIN [facility] Last Admin: 04/30/18 18:19 Dose: 10 mg Benzonatate (Tessalon Perles) 100 mg PO TID [facility] Last Admin: 04/30/18 18:19 Dose: 100 mg Budesonide (Pulmicort Respules) 0.5 mg IH [id number] [facility] Last Admin: 05/01/18 07:38 Dose: 0.5 mg Cholecalciferol (Vitamin D) 1,000 intlu PO DAILY [facility] Last Admin: 04/30/18 10:03 Dose: 1,000 intlu Enoxaparin Sodium (Lovenox) 40 mg SC DAILY [facility]; Protocol Last Admin: 04/30/18 10:04 Dose: 40 mg Furosemide (Lasix) 40 mg PO DAILY [facility] Last Admin: 04/30/18 10:00 Dose: 40 mg Levothyroxine Sodium (Synthroid) 100 mcg PO DAILY [facility] Last Admin: 04/30/18 10:03 Dose: 100 mcg Methylprednisolone (Solu-Medrol) 40 mg IVP Q12 [facility] Last Admin: 04/30/18 21:26 Dose: 40 mg Oxycodone/Acetaminophen (Percocet 5/325 Mg Tab) 1 tab PO Q4H PRN PRN Reason: Pain, severe (8-10) Stop: 05/03/18 10:09 Last Admin: 04/30/18 11:03 Dose: 1 tab Pantoprazole Sodium (Protonix Ec Tab) 40 mg PO ACB [facility] Last Admin: 05/01/18 06:31 Dose: 40 mg Spironolactone (Aldactone) 25 mg PO DAILY [facility] Last Admin: 04/30/18 10:01 Dose: 25 mg - Labs Labs: 05/01/18 06:30 05/01/18 06:30 PT 11.2 SECONDS (9.4-12.5) 04/28/18 21:14 INR 0.98 04/28/18 21:14 APTT 29.9 Seconds (25.1-36.5) 04/28/18 21:14 - Constitutional Appears: Non-toxic, No Acute Distress - Head Exam Head Exam: NORMAL INSPECTION, NORMOCEPHALIC - Eye Exam Eye Exam: Normal appearance Pupil Exam: NORMAL ACCOMODATION - ENT Exam ENT Exam: Mucous Membranes Moist - Respiratory Exam Respiratory Exam: Decreased Breath Sounds, Clear to Ausculation Bilateral, NICOLASA L BREATHING PATTERN - Cardiovascular Exam Cardiovascular Exam: REGULAR RHYTHM, +S1, +S2 - GI/Abdominal Exam GI & Abdominal Exam: Soft, Normal Bowel Sounds - Extremities Exam Additional comments: 1-2+ edema right hip pain - Neurological Exam Neurological Exam: Alert, Awake, Oriented x3 - Psychiatric Exam Psychiatric exam: Normal Affect, Normal Mood - Skin Skin Exam: Dry, Normal Color, Warm Additional comments: per RN rashes on by rectum Assessment and Plan - Assessment and Plan (Free Text) Assessment: A 77 year old female who came in to the ER due to chest pain and shortness of breath. History of CHF (diastolic dysfunction), atrial fibrillation,COPD, hypothyroidism, cellulitis, pancreatitis, anxiety, depression, and pacemaker placement for sick sinus syndrome.ex-smoker quit 3-4 years ago. Recently discharged from hospital for exacerbation of COPD and bronchitis. complaints of right hip pain and chest tenderness. Had stress test on 05/2017 with abnormal results. subsequently had cardiac cath on 06/11/17 with normal coronaries, LVEF 60 %. Echo on 06/09/17 showed LVEF 55%, mild to moderate AR/MR, mild TR, RVSP 35mmHg. Troponin 0.03. EKG -V pacing, Chest tenderness more muskuloskeletal. Right hip pain, trochanteric bursitis, Had Depo-Medrol and marcaine injection of right hip by Dr. Yates. Denies chest pain. Feels better. Complaints of burning sensation on buttocks/rectum site. Plan: Denies chest pain, complaints of tolerable right hip pain Heart rate controlled Stable blood pressure Burning sensation buttocks/rectum site after utrinating, skin irritation Nystatin powder to site On ASA 81 mg daily, Lipitor 10 mg daily, Lovenox 40 mg daily, Synthroid 100 mcg daily,Lasix 40 mg daily,Solumedrol 40 mg BID Aldactone 25 mg daily Continue current treatment Continue current medications Pain management Physical therapy Will follow up Plan and treatment discussed with Dr. Levine
[2018-05-01] MEDS: Nystatin-Triamcinolone Ointment(30 gm) TOP SCH ×2 (10:15→17:37)
[2018-05-01] MEDS: Enoxaparin 40 mg Syringe SC SCH (10:15)
[2018-05-01] MEDS: Levothyroxine 100 MCG TAB PO SCH (10:16)
[2018-05-01] MEDS: MethylPREDNISolone 40 mg Vial IVP SCH (10:16)
[2018-05-01] MEDS: Cholecalciferol 1,000 INTLU TAB PO SCH (10:16)
--- NOTE | 2018-05-01 11:14 | CT ---
Date of service: 04/30/2018 PROCEDURE: CT Lumbar Spine without contrast HISTORY: c/o unrelieved pain unable to do MRI COMPARISON: None available. TECHNIQUE: Axial computed tomography images were obtained of the lumbar spine without the use of intravenous contrast. Coronal and sagittal reformatted images were created and reviewed. Radiation dose: Total exam DLP = 1506.69 mGy-cm. This CT exam was performed using one or more of the following dose reduction techniques: Automated exposure control, adjustment of the mA and/or kV according to patient size, and/or use of iterative reconstruction technique. FINDINGS: VERTEBRAE: There is a severe acute compression fracture of L1. The vertebral body is compressed to a height of 10 mm centrally. DISCS/SPINAL CANAL/NEURAL FORAMINA: L1-2: Unremarkable. L2-3: Unremarkable. L3-4: Mild disc bulge L4-5: Mild disc bulge L5-S1: Unremarkable. PARASPINAL SOFT TISSUES: Unremarkable. OTHER FINDINGS: The report concurs with the preliminary [employer] report IMPRESSION: There is a severe acute compression fracture of L1. The vertebral body is compressed to a height of 10 mm centrally.
--- NOTE | 2018-05-01 11:17 | CT ---
Date of service: 04/30/2018 PROCEDURE: CT Thoracic Spine without contrast HISTORY: c/o unrelieved pain unable to do MRI COMPARISON: None available. TECHNIQUE: Axial computed tomography images were obtained of the thoracic spine without intravenous contrast. Coronal and sagittal reformatted images were created and reviewed. Radiation dose: Total exam DLP = 991.89 mGy-cm. This CT exam was performed using one or more of the following dose reduction techniques: Automated exposure control, adjustment of the mA and/or kV according to patient size, and/or use of iterative reconstruction technique. FINDINGS: VERTEBRAE: There are no vertebral compression fractures in the thoracic spine. L1 compression fracture was reported on lumbar spine exam. There is demineralization and mild kyphotic curvature. DISCS/SPINAL CANAL/NEURAL FORAMINA: Within the limits of the CT technique, no disc herniation seen. No central canal or neural foraminal stenosis.. PARASPINAL SOFT TISSUES: Extensive aortic calcification. OTHER FINDINGS: The report concurs with the preliminary [employer] report. IMPRESSION: Acute compression fracture at L1. The thoracic spine is otherwise unremarkable
--- NOTE | 2018-05-01 11:39 | PN ---
DATE: 05/01/2018 PULMONARY PROGRESS NOTE REFERRING PHYSICIAN: Guillermina Kam MD SUBJECTIVE: The patient is lying in bed. Head of bed elevated. Reports lower back pain is better this morning. Reports feeling constipated. No bowel movements for few days. Shortness of breath still present with exertion. No cough at present time. No headaches, rhinitis, chest pain, abdominal pain, nausea, vomiting, diarrhea, leg pain, or leg swelling reported. OBJECTIVE: GENERAL: No acute distress. VITAL SIGNS: Blood pressure 136/74, pulse 75, temperature 98.7, and oxygen saturation 98%. HEENT: Moist mucous membranes. Mallampati score 4. Crowded airway. NECK: Supple. No JVD. RESPIRATORY: Few scattered rhonchi bilaterally. CARDIOVASCULAR: S1 and S2, audible. ABDOMEN: Soft and nontender. No distension. No organomegaly. EXTREMITIES: +1 bilateral lower extremity edema. NEUROLOGIC: Awake, alert and verbal. Follows commands. MEDICATIONS: Reviewed. Tylenol 650 mg every 6 hours p.r.n. for moderate pain, DuoNeb 3 mL inhalation every 4 hours p.r.n., Xanax 0.25 mg every 6 hours p.r.n., Brovana 15 mcg every 12 hours, aspirin 81 mg daily, Lipitor 10 mg at dinner, Tessalon Perles 100 mg three times a day, Pulmicort 0.5 mg inhalation every 12 hours, Vitamin D 1000 unit p.o. daily, Lovenox 40 mg subcutaneous daily, Lasix 40 mg daily, Synthroid 100 mcg p.o. daily, Solu-Medrol 40 mg every 12 hours, nystatin triamcinolone ointment topically twice a day to affected area, Percocet 5/325 mg one tab every 4 hours p.r.n., Protonix 40 mg a.c., and spironolactone 25 mg p.o. daily. LABORATORY DATA: Reviewed. WBC 10.2, RBC 5.04, hemoglobin 16.1, hematocrit 45.5 and platelets 237. Sodium 129, potassium 4.4, chloride 84, carbon dioxide 32, anion gap 17, BUN 72, creatinine 1.6, GFR 31, random glucose 206, and calcium 10.6. Thoracic spine and lumbar spine CT report pending. IMPRESSION AND PLAN: Exacerbation of chronic obstructive pulmonary disease, congestive heart failure, hypothyroidism, anxiety, depression, coronary artery disease and constipation. Continue inhaled bronchodilators. Continue steroids. Continue deep vein thrombosis prophylaxis and gastric prophylaxis. Suspected sleep apnea syndrome. Sleep apnea precaution. Head of bed elevated at 45 degrees. We will review thoracic and lumbar CT when report is available. We will order Dulcolax suppository rectally x1, dose to be given today. We will start the patient on MiraLax p.o. daily for constipation. We recommend this patient have full pulmonary function test and sleep study as outpatient. This patient is seen and examined with Dr. Simmons. Discussed assessment and plan as described above. Thank you for this consult. We will follow with you. Dileep Og APN Jefferson Simmons MD
[2018-05-01 12:16] VITALS: TEMP 97.4
[2018-05-01] MEDS: Oxycodone/Acetaminophen 5/325 mg Tab PO PRN (14:33)
--- NOTE | 2018-05-01 14:48 | PN ---
DATE: 05/01/2018 REASON FOR CONSULTATION: Followup, cardiac evaluation, admitted with chest pain, and hip pain, history of normal coronaries, history of pacemaker. This note is addition to dictated by the nurse practitioner, Patsy Varela. The patient feels a lot better yesterday given ibuprofen. Chest pain completely relieved as well as hip pain and both feels better. Pertinent lab, hemoglobin 16.1, hematocrit 45.5, platelet count 237. Sodium 129, today potassium 4.4. IMPRESSION: A 77-year-old obese female with the past medical history significant for sick sinus syndrome, status post pacemaker with degenerative change, recent interrogation with pacemaker revealed battery life is one and half years. No evidence of arrhythmia, history of anxiety, and depression, pancreatitis, cellulitis, hypothyroidism, chronic obstructive pulmonary disease. RECOMMENDATIONS: The patient has a rash in the buttock area started. Continue baby aspirin. Continue atorvastatin. Continue spironolactone cut down to 25 before the patient was hypokalemic now. The patient at one point with hyperkalemic so spironolactone cut down 25 once a day. Continue deep venous prophylaxis, continue atorvastatin. Yesterday, she went to lumbosacral CAT scan. We will follow. We will discontinue telemetry. Thank you Dr. Kam for providing opportunity in taking care of the patient, Jigar Mendes. We will follow with you. Jefferson Levine MD
[2018-05-01] MEDS ORDERED: Calcitonin 200 Int Units/Inh Nasal Spray (3.7 ml) NS SCH (18:00)
[2018-05-01 18:04] VITALS: BP 120/70; PULSE 86; RESP 18
--- NOTE | 2018-05-01 23:57 | DS ---
HOSPITAL COURSE: The patient is a 77-year-old female admitted through the emergency department on 04/29/2018 complaining of chest pain and shortness of breath. Serial EKG and enzymes were negative for acute myocardial infarction. The patient was seen in consultation by Cardiology, Dr. Levine and no further workup was recommended. The patient is now medically stable for discharge to the Transitional Care Unit for physical therapy. She is complaining of back pain and was noted to have a compression fracture of the lumbosacral spine. PHYSICAL EXAMINATION: VITAL SIGNS: Blood pressure 136/78, pulse 75, temperature 98.7, respiratory rate 14. LUNGS: Clear. HEART: Regular rate and rhythm. ABDOMEN: Soft and nontender. Bowel sounds are normoactive. EXTREMITIES: Without cyanosis, clubbing or edema. NEUROLOGIC: The patient is awake and oriented x3 without focal sensory motor deficits. IMPRESSION: 1. Chest pain. 2. Chronic obstructive pulmonary disease. 3. Congestive heart failure. 4. Hypothyroidism. 5. Compression fracture of lumbosacral spine. PLAN: The patient is transferred to the Transitional Care Unit on the following medications, Aldactone 25 mg daily, Brovana 15 mcg inhaled every 12 hours, DuoNebs 3 mL inhaled every 4 hours,Ecotrin 81 mg daily, Lasix 40 mg daily, Lipitor 10 mg daily, Lovenox 30 mg subcutaneously daily, Miacalcin 200 units intranasally daily, MiraLax 17 g daily Percocet 5/325 1 tablet every 4 hours. p.r.n., Synthroid 100 mcg daily, Xanax 0.25 every 6 p.r.n. The patient is maintained on a heart-healthy diet. Activity is as per the rehab unit. TO Willard MD
[2018-05-02] MEDS ORDERED: Calcitonin 200 Int Units/Inh Nasal Spray (3.7 ml) NS SCH (10:00)
[2018-05-02] MEDS ORDERED: Enoxaparin 30 mg Syringe SC SCH (10:00)
[2018-05-02] MEDS ORDERED: POLYETHYLENE GLYCOL 3350 17 GM/Dose PACKET PO SCH (10:00)
== END 2018-05-01 18:15 | DRG 191 ==
LOC: ED 20:26 → ERH 04-29 00:21 → 2RSO 04-29 00:21 → UNDOADMOB 04-29 00:21 → ERH 04-29 00:44 → 2RSO 04-29 00:44 → ERH 04-29 02:21 → OBSVTOIN 04-29 14:32 → INTOOBSV 04-29 14:32 → 2RSO 04-30 14:32 → OBSVTOIN 04-30 14:32 → ERH 04-30 14:32
PROVIDERS: ADMIT Internal Medicine; ATTEND Internal Medicine
PROC: 3E0U33Z Introduction of Anti-inflammatory into Joints, Percutaneous Approach (ICD-10-PCS; principal; 2018-04-29)
PROC: 3E0U3BZ Introduction of Anesthetic Agent into Joints, Percutaneous Approach (ICD-10-PCS; 2018-04-29)
DX: J44.1 Chronic obstructive pulmonary disease with (acute) exacerbation (principal); I50.32 Chronic diastolic (congestive) heart failure; M48.57XA Collapsed vertebra, not elsewhere classified, lumbosacral region, initial encounter for fracture; I11.0 Hypertensive heart disease with heart failure; E03.9 Hypothyroidism, unspecified; M70.61 Trochanteric bursitis, right hip; I25.10 Atherosclerotic heart disease of native coronary artery without angina pectoris; I27.20 Pulmonary hypertension, unspecified; I48.0 Paroxysmal atrial fibrillation; E66.9 Obesity, unspecified; E11.65 Type 2 diabetes mellitus with hyperglycemia; R07.89 Other chest pain; F41.8 Other specified anxiety disorders; Z95.0 Presence of cardiac pacemaker; Z87.891 Personal history of nicotine dependence; Z68.31 Body mass index [BMI] 31.0-31.9, adult; K21.9 Gastro-esophageal reflux disease without esophagitis; E78.5 Hyperlipidemia, unspecified; F32.89 Other specified depressive episodes; F41.9 Anxiety disorder, unspecified; I08.3 Combined rheumatic disorders of mitral, aortic and tricuspid valves; K59.00 Constipation, unspecified; M70.71 Other bursitis of hip, right hip; Z79.890 Hormone replacement therapy; Z86.010 Personal history of colon polyps; Z90.49 Acquired absence of other specified parts of digestive tract; Z99.81 Dependence on supplemental oxygen

== ENCOUNTER 2018-05-01 18:17 | Inpatient (IN) | payer OTHER ==
[2018-05-01] MEDS ORDERED: Albuterol-Ipratrop 3 mg / 0.5 (3 ml) UD IH PRN (18:58)
[2018-05-01] MEDS: Arformoterol 15 mcg/2 ml Inh Sol IH SCH (19:22)
[2018-05-01] MEDS: Budesonide 0.5 mg/2 ml Inhal Susp UD IH SCH (19:22)
[2018-05-01] MEDS ORDERED: Arformoterol 15 mcg/2 ml Inh Sol IH SCH (20:00)
[2018-05-01] MEDS: Oxycodone/Acetaminophen 5/325 mg Tab PO PRN (20:17)
[2018-05-01 21:55] VITALS: BMI 31.4
[2018-05-01] MEDS ORDERED: Pneumococcal 23-Valent Vaccine IM ONE (21:55)
[2018-05-01] MEDS ORDERED: Influenza Vaccine 60 mcg/0.5 mL SYR (4YR UP) IM ONE (21:55)
[2018-05-02] MEDS: Enoxaparin 40 mg Syringe SC SCH (05:38)
[2018-05-02] MEDS: Levothyroxine 100 MCG TAB PO SCH (05:38)
[2018-05-02] MEDS: MethylPREDNISolone 40 mg Vial IVP SCH ×3 (05:38→17:52)
[2018-05-02] MEDS: Pantoprazole 40 mg EC Tab PO SCH (05:38)
[2018-05-02] MEDS: Budesonide 0.5 mg/2 ml Inhal Susp UD IH SCH ×2 (07:12→19:50)
[2018-05-02] MEDS: Arformoterol 15 mcg/2 ml Inh Sol IH SCH ×2 (07:13→19:50)
[2018-05-02] MEDS: Oxycodone/Acetaminophen 5/325 mg Tab PO PRN ×3 (10:06→23:55)
[2018-05-02] MEDS: POLYETHYLENE GLYCOL 3350 17 GM/Dose PACKET PO SCH ×2 (10:07→17:17)
[2018-05-02] MEDS: Cholecalciferol 1,000 INTLU TAB PO SCH (10:08)
[2018-05-02] MEDS: Nystatin-Triamcinolone Ointment(30 gm) TOP SCH ×2 (10:08→17:14)
[2018-05-02] MEDS: Calcitonin 200 Int Units/Inh Nasal Spray (3.7 ml) NS SCH (10:49)
--- NOTE | 2018-05-02 11:59 | HP ---
DATE OF EXAM: 05/02/[address] Danielle covering for Dr. Guillermina Kam. HISTORY OF PRESENT ILLNESS: The patient is a 77-year-old female admitted through the emergency department on 04/29/2018 complaining of chest pain and shortness of breath. Serial EKG and cardiac enzymes were negative for acute myocardial infarction. The patient was seen in consultation by Cardiology, Dr. Levine and no further workup was recommended. The patient is now transferred to the Transitional Care Unit for physical therapy. She has been complaining of severe back pain and was noted to have an acute compression fracture of the lumbosacral spine. PAST MEDICAL HISTORY: Includes COPD, CHF, hypothyroidism, hypercholesterolemia, hypothyroidism. ALLERGIES: LEVOFLOXACIN. CURRENT MEDICATIONS: Include Aldactone 25 mg daily, Brovana 15 mcg inhaled every 12 hours, DuoNebs, Ecotrin 81 mg daily, Lasix 40 mg daily, Lipitor 10 mg daily, Lovenox 30 mg subcu daily, Miacalcin nasal spray 1 spray daily alternate nostrils, MiraLax 17 g daily, Percocet 5/325 1 tablet every 4 hours p.r.n., Synthroid 100 mcg daily, Xanax 0.25 every 6 hours p.r.n. FAMILY HISTORY: Noncontributory. SOCIAL HISTORY: The patient denies alcohol or tobacco use. REVIEW OF SYSTEMS: The patient denies any chest pain, shortness of breath. No swelling of the legs. No melena or bright red blood per rectum. No abdominal pain. No nausea, no vomiting, no diaphoresis. PHYSICAL EXAMINATION: GENERAL: The patient is a well-developed obese female in mild distress secondary to low back pain. VITAL SIGNS: Temperature 97.3, pulse 103, blood pressure 129/82, respiratory rate 20. HEENT: Head is normocephalic, atraumatic. Pupils equal, round, reactive to light. Extraocular movements intact. NECK: Supple with no thyromegaly. No carotid bruit, no adenopathy. LUNGS: Clear. HEART: Regular rate and rhythm. ABDOMEN: Soft, obese, nontender. Bowel sounds normoactive. EXTREMITIES: Without cyanosis, clubbing or edema. There is decreased range of motion of lumbosacral spine secondary to pain. NEUROLOGIC: The patient is awake and oriented x3 without focal sensory or motor deficits. SKIN: Warm and dry. IMPRESSION: 1. Chest pain/coronary artery disease. 2. Chronic obstructive pulmonary disease. 3. Congestive heart failure. 4. Acute compression fracture of the lumbosacral spine. 5. Hypothyroidism. PLAN: The patient is admitted to the Transitional Care Unit for further management and physical therapy prior to discharge to home. She will be seen in consultation by Cardiology, Dr. Levine and Pulmonology, Dr. Simmons. She will be maintained on a heart-healthy diet. Dr. Sarmiento will resume care of the patient on Friday. TO Willard MD
--- NOTE | 2018-05-02 21:02 | CON ---
DATE OF CONSULTATION: 05/02/2018 REFERRING PHYSICIAN: Dr. Danielle REASON FOR CONSULTATION: Mild cough and shortness of breath. HISTORY OF PRESENT ILLNESS: This is a 77-year-old female known to me from acute side of the hospital where she was admitted with shortness of breath, cough and low back pain. Has a history of chronic obstructive lung disease, heart failure, hypothyroid, coronary artery disease, history of cardiac arrhythmia requiring pacemaker. Apparently has a history of fall. Seen by Orthopedics Surgery. She was injected in the right hip. Subsequently, CT of the spine shows L1 compression fracture. Presently admitted to [facility] for continued care. She does have some mild cough. No chest pain. No nausea or vomiting. Has a low back pain and leg swelling. PAST MEDICAL HISTORY: Chronic lung disease, heart failure, oxygen dependent, hypothyroid, history of lower extremity cellulitis, pancreatitis, anxiety disorder, depression, history of cardiac arrhythmia requiring pacemaker. FAMILY HISTORY: No significant cardiopulmonary disease reported. SOCIAL HISTORY: Former smoker. Denies any alcohol use. MEDICATIONS: She is on Aldactone 25 mg daily, Brovana inhaled twice a day, DuoNeb every 4 hours p.r.n., Ecotrin 81 mg daily, Lasix 20 mg daily, Lipitor 10 mg daily, Lovenox 40 mg subcu daily, Miacalcin 200 International Units daily, MiraLax 17 g daily, nystatin at affected area twice a day, Percocet 5/325 one tablet every 4 hours p.r.n., Protonix 40 mg daily, Pulmicort inhaled twice a day, Solu-Medrol 40 mg every 12 hours, Synthroid 100 mcg daily, Tessalon Perles 100 mg three times a day, Tylenol p.r.n. basis, vitamin D 1000 International Units daily, Xanax 0.25 mg every 6 hours p.r.n. ALLERGIES: LEVAQUIN. REVIEW OF SYSTEMS: No headache or rhinitis. Does have some cough, short of breath with exertion. No chest pain. No abdominal pain. Has a low back discomfort. No dysuria. Does have a trace leg swelling. PHYSICAL EXAMINATION: GENERAL: No acute distress. VITAL SIGNS: Temperature is 98, heart rate is 81, respiratory rate is 20, blood pressure 143/82, pulse ox 95% on 2 liter nasal cannula. HEENT: Moist mucous membranes. Crowded airway. Mallampati score is four. NECK: Supple. No JVD. LUNGS: Have a few scattered rhonchi with prolonged expiratory phase. HEART: S1 and S2. ABDOMEN: Soft, nontender, no organomegaly. EXTREMITIES: There is trace edema. NEUROLOGIC: Awake, alert, follows simple commands. LABORATORY DATA: Hemoglobin 16.1, hematocrit 45.5, WBC 10.2, platelets 237,000. Yesterday sodium was 129, potassium 4.4, chloride 84, bicarbonate 32, BUN 72, creatinine 1.6, glucose 206, calcium is 10.5. IMPRESSION AND PLAN: Exacerbation of chronic obstructive lung disease, congestive heart failure, hypothyroidism, anxiety disorder, depression, coronary artery disease, constipation, L1 compression fracture. Pulmonary point of view, she is doing okay. I will decrease Solu-Medrol to 20 mg twice a day. May add Zithromax for chronic lung disease. On diuretics. Fall precaution. Careful with sedation. We will recommend PFT and sleep study upon discharge as outpatient. Continue to follow BUN and creatinine closely. Thank you and we will follow with you. Jefferson Simmons MD
[2018-05-03] MEDS: MethylPREDNISolone 40 mg Vial IVP SCH ×2 (05:59→17:17)
[2018-05-03] MEDS: Enoxaparin 40 mg Syringe SC SCH (05:59)
[2018-05-03] MEDS: Pantoprazole 40 mg EC Tab PO SCH (06:00)
[2018-05-03] MEDS: Levothyroxine 100 MCG TAB PO SCH (06:00)
[2018-05-03] MEDS: Budesonide 0.5 mg/2 ml Inhal Susp UD IH SCH ×2 (07:14→20:47)
[2018-05-03] MEDS: Arformoterol 15 mcg/2 ml Inh Sol IH SCH ×2 (07:14→20:47)
[2018-05-03 08:10] LABS: GRAN # 8.42 (1.4-6.5); LYMPH # 0.7 (1.2-3.4); LYMPH % 7.3 % (22.0-35.0); MEAN CELL VOLUME 91.2 fl (80.0-105.0); MEAN CORPUSCULAR HEMOGLOBIN 31.4 pg (25.0-35.0); MEAN CORPUSCULAR HGB CONC 34.5 g/dl (31.0-37.0); MEAN PLATELET VOLUME 9.9 fl (7.0-11.0); MONO # 0.9 (0.1-0.6); MONO % 8.7 % (1.0-6.0); RBC 4.77 10^6/uL (3.5-6.1); RED CELL DISTRIBUTION WIDTH 14.2 % (11.5-14.5)
[2018-05-03 08:28] LABS: ALB/GLOB RATIO 1.4 (1.1-1.8); ALBUMIN 3.9 g/dL (3.0-4.8)
[2018-05-03] MEDS: Oxycodone/Acetaminophen 5/325 mg Tab PO PRN ×2 (08:40→17:20)
[2018-05-03] MEDS: Calcitonin 200 Int Units/Inh Nasal Spray (3.7 ml) NS SCH (09:59)
[2018-05-03] MEDS: Cholecalciferol 1,000 INTLU TAB PO SCH (10:00)
[2018-05-03] MEDS: Nystatin-Triamcinolone Ointment(30 gm) TOP SCH ×2 (10:00→17:16)
[2018-05-03] MEDS: POLYETHYLENE GLYCOL 3350 17 GM/Dose PACKET PO SCH (10:41)
--- NOTE | 2018-05-03 11:57 | CP.PCM.PN ---
Subjective - Date & Time of Evaluation Date of Evaluation: 05/03/18 Time of Evaluation: 11:00 - Subjective Subjective: c/o back pain, otherwise NAD, denies chest pain, no SOB Objective - Vital Signs/Intake and Output Vital Signs (last 24 hours): Temp Pulse Resp BP Pulse Ox 98.7 F 94 H 18 131/76 96 05/03/18 10:00 05/03/18 10:00 05/03/18 10:00 05/03/18 10:00 05/03/18 10:00 Intake and Output: 05/03/18 05/03/18 06:59 18:59 Intake Total 350 Balance 350 - Medications Medications: Current Medications Acetaminophen (Tylenol 325mg Tab) 650 mg PO Q6H PRN; Protocol PRN Reason: Pain, moderate (4-7) Albuterol/Ipratropium (Duoneb 3 Mg/0.5 Mg (3 Ml) Ud) 3 ml IH [id number] PRN; Protocol PRN Reason: Shortness of Breath Alprazolam (Xanax) 0.25 mg PO Q6 PRN; Protocol PRN Reason: Anxiety Stop: 05/09/18 00:01 Last Admin: 05/02/18 18:00 Dose: 0.25 mg Arformoterol Tartrate (Brovana) 15 mcg IH [id number] GRETEL; Protocol Last Admin: 05/03/18 07:14 Dose: 15 mcg Aspirin (Ecotrin) 81 mg PO 0800 GRETEL; Protocol Last Admin: 05/03/18 08:07 Dose: 81 mg Atorvastatin Calcium (Lipitor) 10 mg PO DIN GRETEL; Protocol Last Admin: 05/02/18 17:14 Dose: 10 mg Azithromycin (Zithromax) 250 mg PO DAILY GRETEL; Protocol Last Admin: 05/03/18 10:01 Dose: 250 mg Benzonatate (Tessalon Perles) 100 mg PO TID GRETEL; Protocol Last Admin: 05/03/18 10:41 Dose: 100 mg Budesonide (Pulmicort Respules) 1 mg IH [id number] GRETEL; Protocol Last Admin: 05/03/18 07:14 Dose: 1 mg Calcitonin [place] (Miacalcin) 200 intlu NS DAILY GRETEL Last Admin: 05/03/18 09:59 Dose: 1 spray Cholecalciferol (Vitamin D) 1,000 intlu PO DAILY GRETEL; Protocol Last Admin: 05/03/18 10:00 Dose: 1,000 intlu Enoxaparin Sodium (Lovenox) 40 mg SC 0630 GRETEL; Protocol Last Admin: 05/03/18 05:59 Dose: 40 mg Furosemide (Lasix) 40 mg PO DAILY GRETEL; Protocol Last Admin: 05/03/18 09:59 Dose: 40 mg Levothyroxine Sodium (Synthroid) 100 mcg PO 0630 GRETEL; Protocol Last Admin: 05/03/18 06:00 Dose: 100 mcg Methylprednisolone (Solu-Medrol) 20 mg IVP 0600,1800 GRETEL; Protocol Last Admin: 05/03/18 05:59 Dose: 20 mg Nystatin/Triamcinolone Acetonide (Nystatin/Triamcinolone Ointment) 1 gm TOP BID GRETEL; Protocol Last Admin: 05/03/18 10:00 Dose: 1 gm Oxycodone/Acetaminophen (Percocet 5/325 Mg Tab) 1 tab PO Q4H PRN; Protocol PRN Reason: Pain, severe (8-10) Stop: 05/04/18 18:59 Last Admin: 05/03/18 08:40 Dose: 1 tab Pantoprazole Sodium (Protonix Ec Tab) 40 mg PO 0600 GRETLE; Protocol Last Admin: 05/03/18 06:00 Dose: 40 mg Polyethylene Glycol (Miralax) 17 gm PO DAILY GRETEL; Protocol Last Admin: 05/03/18 10:41 Dose: 17 gm Spironolactone (Aldactone) 25 mg PO DAILY GRETEL; Protocol Last Admin: 05/03/18 09:59 Dose: 25 mg - Labs Labs: 05/03/18 07:00 05/03/18 07:00 - Respiratory Exam Respiratory Exam: Clear to Ausculation Bilateral, NORMAL BREATHING PATTERN - Cardiovascular Exam Cardiovascular Exam: REGULAR RHYTHM - GI/Abdominal Exam GI & Abdominal Exam: Soft, Normal Bowel Sounds - Back Exam Back Exam: vertebral tenderness - Neurological Exam Neurological Exam: Alert, Awake - Skin Skin Exam: Dry, Warm Assessment and Plan (1) CHF (congestive heart failure) Status: Chronic (2) COPD (chronic obstructive pulmonary disease) Status: Chronic (3) Vertebral compression fracture Status: Acute - Assessment and Plan (Free Text) Plan: continue montioring in TCU/PT/Dr. Kam to resume care of pt in am
--- NOTE | 2018-05-03 22:08 | PN ---
DATE: 05/03/2018 PULMONARY PROGRESS NOTE REFERRING PHYSICIAN: Dr. Danielle. SUBJECTIVE: She is out of bed to reclining chair, done well in therapy this morning, still has low back pain. Mild cough. No nausea, no vomiting, no diarrhea. No leg pain. OBJECTIVE: GENERAL: No acute distress. VITAL SIGNS: Temperature is 98, heart rate is 88, respiratory rate is 20, blood pressure 148/97, pulse ox 95% on 2 liters nasal cannula. HEENT: Moist mucous membrane. Crowded airway. NECK: Supple. No JVD. LUNGS: Have a fair airflow with rhonchi. HEART: S1 and S2. ABDOMEN: Soft, nontender. No organomegaly. EXTREMITIES: Trace edema. NEUROLOGIC: Awake and alert. Follows simple command. MEDICATIONS: She is on Aldactone 25 mg daily, Brovana inhaled twice a day, DuoNeb every 4 hours p.r.n., Ecotrin 81 mg daily, Lasix 40 mg daily, Lipitor 10 mg daily, Lovenox 40 mg daily, 200 International Units nasally daily, MiraLax 17 g daily, triamcinolone to affected area twice a day, Percocet 5/325 one tablet every 4 hours p.r.n., Protonix 40 mg daily, Pulmicort inhaled twice a day, Solu-Medrol 20 mg twice a day, Synthroid 100 mcg daily, Tessalon Perles 100 mg three times a day, Tylenol p.r.n., vitamin D 1000 International Units daily, Xanax 0.25 mg every 6 hours p.r.n., Zithromax 250 mg daily. LABORATORY DATA: Shows hemoglobin 15, hematocrit 43.5, WBC 10, platelet is 224. Sodium 132, potassium 4.2, chloride 87, bicarbonate 37, BUN 55, creatinine 1.1, glucose 190, calcium is 10, phosphorus 2.7, magnesium 2.2, total bili 0.9, AST 45, ALT 51, alk phos is 123, albumin is 3.9. IMPRESSION AND PLAN: Chronic obstructive lung disease, congestive heart failure, hypothyroid, anxiety disorder, depression, coronary artery disease, constipation, L1 compression fracture. Pulmonary point of view, doing alright. Continue intravenous and inhaled bronchodilator. Continue antibiotics. Gastric prophylaxis, deep venous thrombosis prophylaxis. May get lidocaine patch at affected area at L1 spine. Thank you, and we will follow with you. Jefferson Simmons MD
[2018-05-04] MEDS: Enoxaparin 40 mg Syringe SC SCH (06:02)
[2018-05-04] MEDS: Pantoprazole 40 mg EC Tab PO SCH (06:03)
[2018-05-04] MEDS: Levothyroxine 100 MCG TAB PO SCH (06:03)
[2018-05-04] MEDS: Oxycodone/Acetaminophen 5/325 mg Tab PO PRN ×2 (06:05→14:02)
[2018-05-04] MEDS: Arformoterol 15 mcg/2 ml Inh Sol IH SCH ×2 (07:07→20:29)
[2018-05-04] MEDS: Budesonide 0.5 mg/2 ml Inhal Susp UD IH SCH ×2 (07:07→20:29)
--- NOTE | 2018-05-04 08:43 | CON ---
DATE: 05/02/2018 ORTHOPEDIC CONSULTATION The patient just admitted to TCU from room 313, bed 2. HISTORY OF PRESENT ILLNESS: Cinthya Kimball is a 77-year-old female. I initially saw her when she was admitted to the main hospital floor on 04/28/2018 and she had right hip pain while we injected her right hip for bursitis and that helped her bursitis pain in the right hip back on approximately 04/21/2018 when she was on the regular hospital floor. She is feeling better from the bursitis of her right hip, but x-rays of her lumbar spine showed acute compressive fracture felt along which is stable and that interfering with spinal canal. She has approximately 40% compression and this is going to heal spontaneously and she does need to ambulate with the walker to keep her bones from getting too weak and the bursitis is improving of her right hip, but the CAT scan of right hip showed no fracture. ORTHOPEDIC DIAGNOSES: Bursitis right trochanteric bursa improved with the Depo-Medrol shot about a week ago and that she has compression fracture of lumbar spine that is stable and could ambulate with the walker and gentle flexion exercise of the spine. Herrera Rick DO
[2018-05-04] MEDS: Calcitonin 200 Int Units/Inh Nasal Spray (3.7 ml) NS SCH (09:56)
[2018-05-04] MEDS: Nystatin-Triamcinolone Ointment(30 gm) TOP SCH ×2 (09:57→17:18)
[2018-05-04] MEDS: Lidocaine 5% Patch TD SCH (09:57)
[2018-05-04] MEDS: Cholecalciferol 1,000 INTLU TAB PO SCH (09:58)
[2018-05-04] MEDS: POLYETHYLENE GLYCOL 3350 17 GM/Dose PACKET PO SCH (09:59)
[2018-05-04] MEDS ORDERED: MethylPREDNISolone 40 mg Vial IVP SCH (10:00)
--- NOTE | 2018-05-04 15:30 | PN ---
DATE: 05/04/2018 PULMONARY PROGRESS NOTE REFERRING PHYSICIAN: Guillermina Kam MD SUBJECTIVE: The patient is out of bed to chair in room, still has lower back pain. Reports shortness of breath with exertion. Occasional cough. No headaches, rhinitis, chest pain, abdominal pain, nausea, vomiting, diarrhea, leg pain, or leg swelling reported. OBJECTIVE: GENERAL: No acute distress. VITAL SIGNS: Blood pressure 148/97, pulse 88, temperature 97.6 and oxygen saturation 95%. HEENT: Moist mucous membranes. Crowded airway. NECK: Supple. No JVD. LUNGS: Few scattered rhonchi bilaterally. CARDIOVASCULAR: S1 and S2, audible. ABDOMEN: Soft and nontender. No distension. No organomegaly. EXTREMITIES: Trace bilateral lower extremity edema. NEUROLOGIC: Awake, alert and verbal. Follows commands. MEDICATIONS: Reviewed. Tylenol 650 mg every 6 hours p.r.n. for moderate pain, DuoNeb 3 mL inhalation every 4 hours p.r.n., Xanax 0.25 mg p.o. every 6 hours p.r.n., Brovana 15 mcg every 12 hours, aspirin 81 mg daily, Lipitor 10 mg at dinner, Zithromax 250 mg p.o. daily, Tessalon Perles 100 mg three times a day, Pulmicort 1 mg every 12 hours, Calcitonin salmon 200 nasal daily, Vitamin D 1000 units daily, Lovenox 40 mg daily, Lasix 40 mg daily, Synthroid 100 mcg p.o. daily, Lidoderm patch topically to affected area, Solu-Medrol 20 mg daily, nystatin triamcinolone ointment topically twice a day to affected area, Percocet 5/325 mg every 4 hours p.r.n., Protonix 40 mg daily, MiraLax 17 g daily and spironolactone 25 mg daily. LABORATORY DATA: Reviewed. No new labs since yesterday. IMPRESSION AND PLAN: Chronic obstructive lung disease, congestive heart failure, hypothyroidism, anxiety disorder, depression, coronary artery disease, L1 compression fracture and constipation. Pulmonary point of view, continue steroids, continue inhaled bronchodilators and continue antibiotic therapy. Gastric prophylaxis and deep venous thrombosis prophylaxis. Continue physical therapy. Pain management. Followup with orthopedic. We will add p.r.n. cough medicine. This patient is seen and examined with Dr. Simmons. Discussed assessment and plan as described above. Thank you for this consult. We will follow with you. Dileep Og APN Jefferson Simmons MD
--- NOTE | 2018-05-04 20:18 | CON ---
DATE: 05/04/2018 REASON FOR CONSULTATION: Chest pain, cardiac evaluation, continuity of care in Transitional Care Unit. BRIEF CLINICAL HISTORY: This is a 77-year-old female with past medical history significant for smoking, quit 3 to 4 years ago, history of essentially normal coronaries, status post cardiac catheterization, mild pulmonary hypertension, history of sick sinus syndrome status post permanent pacemaker, was discharged from the hospital with acute exacerbation of COPD and bronchitis, came in with chest pain, which is very tender and right hip pain status post right hip intraarticular injection with Dr. Rick, now the patient was transferred to Transitional Care Unit for the continuity of care. Denies any chest pain, shortness of breath or any palpitation. PAST MEDICAL HISTORY: Significant for COPD; CHF; diastolic dysfunction; atrial fibrillation, paroxysmal; anxiety disorder; depression; hypertension; status post permanent pacemaker, history of pacemaker generator change. PAST SURGICAL HISTORY: Significant for pacemaker, knee surgery and history of cardiac catheterization. PREVIOUS CARDIAC WORKUP: As follows: The patient had a stress test on 05/2017 that showed ischemia. The patient underwent subsequently cardiac catheterization on 06/11/2017 that shows normal coronaries, normal LV function, ejection fraction 60%, EDP was in the range of 20. The patient has also right heart catheterization done at that time because of shortness of breath and pulmonary hypertension that revealed RA 15, right ventricle 44/15, PA 40/25, mean PA 32. Pulmonary capillary wedge pressure, PCW 24. Coronaries essentially normal. Echo on 06/09/2017 ejection fraction 55%, [id number] aortic regurgitation, [id number] mitral regurgitation, mild tricuspid regurgitation, RV systolic pressure 35. SOCIAL HISTORY: She stopped smoking 3 to 4 years ago. She used to smoke a pack a day. CURRENT MEDICATIONS: The patient at home was taking Pepcid 40 mg daily, atorvastatin 10 mg daily, methylprednisolone 10 mg daily, Spiriva 2.5 mg daily, Lyrica 25, levothyroxine 150 daily, Lasix 40 mg daily, Prozac 10 mg daily, Pulmicort inhalation every 12 hours, Tessalon Perles 100 mg daily, Zithromax 500 as well as aspirin 81 mg daily. ALLERGIES: LEVAQUIN. REVIEW OF SYSTEMS: As per HPI. PHYSICAL EXAMINATION: GENERAL: Height of the patient is 5 feet 1 inch, weight of the patient is 166 pounds, body mass index 31.4 kg/m2. LABORATORY DATA: Blood workup: WBC 10, hemoglobin 15, hematocrit 43.5, platelet count 224. Chemistry shows sodium of 130, potassium 4.2, chloride 87, carbon dioxide 37, anion gap of 13, BUN 55, creatinine 1.1. IMPRESSION: A 77-year-old morbidly obese female with past medical history significant for hypertension, chronic obstructive pulmonary disease, status post cardiac catheterization in 05/2017, essential normal coronaries, mild pulmonary hypertension, ex-tobacco abuse, admitted with atypical chest pain and right hip pain status post intraarticular injection, right hip feels better. Now the patient is in Transitional Care for continuity of care, with history of diabetes, hypertension, hyperlipidemia, chronic obstructive pulmonary disease, bronchitis and normal coronaries as mentioned above, history of pacemaker interrogation done recently on last admission shows batter life 1 and half years, . No arrhythmia. RECOMMENDATIONS: Continue aggressive treatment for COPD. Continue spironolactone 25 mg daily. Continue Lasix 40 mg daily. Continue atorvastatin. Continue rehab. Continue DVT prophylaxis. We will follow with you. Thank you Dr. Kam for providing us the opportunity in taking care of the patient, Cinthya Kimball. Jefferson Levine MD
[2018-05-04] MEDS ORDERED: Oxycodone/Acetaminophen 5/325 mg Tab PO PRN (22:52)
[2018-05-04] MEDS: guaiFENesin 100 mg/5 ml Syrup UD PO PRN (23:27)
[2018-05-05] MEDS: Pantoprazole 40 mg EC Tab PO SCH (05:22)
[2018-05-05] MEDS: Levothyroxine 100 MCG TAB PO SCH (05:31)
[2018-05-05] MEDS: Enoxaparin 40 mg Syringe SC SCH (05:31)
[2018-05-05] MEDS ORDERED: MethylPREDNISolone 40 mg Vial IVP SCH (06:00)
--- NOTE | 2018-05-05 06:18 | PN ---
DATE: 05/04/2018 SUBJECTIVE: The patient was seen and examined at bedside on 05/04/2018. Looking comfortable. Complaining about back pain, hip pain. Otherwise, no shortness of breath. Cough is better. No nausea, vomiting, or diarrhea. No hematemesis or hematochezia. No dizziness. No chest pain or palpitation. PHYSICAL EXAMINATION: VITAL SIGNS: Blood pressure 140/90, pulse 88, temperature 98.2, oxygenation 96%. HEENT: Head normocephalic, atraumatic. Eyes PERRLA. Extraocular muscles intact. Conjunctivae clear. Nose patent. Mucous membranes moist. NECK: Supple. No carotid bruit. No JVD or thyromegaly. CHEST: Bilaterally symmetrical. HEART: S1 and S2 positive. LUNGS: Clear to auscultation. ABDOMEN: Soft. Positive bowel sounds. No organomegaly. EXTREMITIES: No edema. No cyanosis. NEUROLOGIC: The patient is awake and alert. Moving all 4 extremities. No focal deficits. MEDICATIONS: Tylenol, DuoNeb, Xanax, aspirin, Zithromax, Tessalon Perles, Pulmicort, calcitonin, vitamin D, Lovenox, Synthroid, Lidoderm, Solu-Medrol tapering doses, Percocet, Protonix. LABORATORY DATA: We do not have recent labs today, but I reviewed old lab. ASSESSMENT AND PLAN: Ms. Cinthya Kimball is a 77-year-old lady with multiple medical problems, back pain, hip pain, chronic obstructive lung disease, congestive heart failure, hypothyroidism, anxiety, coronary artery disease, depression, history of fall, L1 compression fracture, constipation. Continue steroid tapering doses, bronchodilators, antibiotics. Gastric and deep venous thrombosis prophylaxes. pain medication. Getting physical therapy. Repeat labs. We will follow up. Guillermina Kam MD MTDD
[2018-05-05] MEDS: Arformoterol 15 mcg/2 ml Inh Sol IH SCH ×2 (07:17→20:09)
[2018-05-05] MEDS: Budesonide 0.5 mg/2 ml Inhal Susp UD IH SCH ×2 (07:17→20:09)
[2018-05-05] MEDS: Oxycodone/Acetaminophen 5/325 mg Tab PO PRN ×2 (08:53→18:03)
[2018-05-05] MEDS: Lidocaine 5% Patch TD SCH (10:31)
[2018-05-05] MEDS: Nystatin-Triamcinolone Ointment(30 gm) TOP SCH ×2 (10:32→18:03)
[2018-05-05] MEDS: Calcitonin 200 Int Units/Inh Nasal Spray (3.7 ml) NS SCH (10:32)
[2018-05-05] MEDS: Cholecalciferol 1,000 INTLU TAB PO SCH (10:34)
--- NOTE | 2018-05-05 10:49 | PN ---
DATE: 05/05/2018 PULMONARY PROGRESS NOTE REFERRING PHYSICIAN: Guillermina Kam MD SUBJECTIVE: The patient is sitting up in chair in room. No acute distress. No overnight events reported. The patient does report some lower back pain this morning. No headache, rhinitis, chest pain, abdominal pain, nausea, vomiting, diarrhea, leg pain or leg swelling reported. The patient does report shortness of breath with exertion and occasional cough. OBJECTIVE: GENERAL: No acute distress. VITAL SIGNS: Blood pressure 149/96, pulse 91, temperature 97.8 and oxygen saturation 98%. HEENT: Moist mucous membranes. Crowded airway. NECK: Supple. No JVD. LUNGS: Few scattered rhonchi bilaterally. CARDIOVASCULAR: S1 and S2 audible. ABDOMEN: Soft and nontender. No distension. No organomegaly. EXTREMITIES: Trace bilateral lower extremity edema. NEUROLOGIC: Awake, alert and verbal. Follows commands. MEDICATIONS: Reviewed. Tylenol 650 mg every 6 hours p.r.n. for moderate pain, DuoNeb 3 mL inhalation every 4 hours p.r.n., Xanax 0.25 mg three times a day, Brovana 15 mcg inhalation every 12 hours, aspirin 81 mg daily, Lipitor 10 mg daily, Zithromax 250 mg daily, Tessalon Perles 100 mg three times a day, Pulmicort 1 mg inhalation every 12 hours, Calcitonin salmon 200 nasally daily, Vitamin D 1000 units daily, Lovenox 40 mg daily, Lasix 40 mg daily, Robitussin 100 mg every 4 hours p.r.n.,Synthroid 100 mcg daily, Lidocaine patch topically daily, Solu-Medrol 20 mg daily, nystatin triamcinolone ointment 1 g topically twice a day, Percocet 5/325 mg 1 tab every 6 hours p.r.n. for severe pain, Protonix 40 mg daily, MiraLax 17 g daily and Aldactone 25 mg daily. LABORATORY DATA: Reviewed. No new labs since yesterday. IMPRESSION AND PLAN: Chronic obstructive lung disease, congestive heart failure, hypothyroidism, anxiety disorder, coronary artery disease, depression, L1 compression fracture and constipation. Pulmonary point of view, we will discontinue Solu-Medrol and start prednisone 10 mg daily to taper off in a next couple of days, continue inhaled bronchodilators, continue antibiotic therapy, gastric prophylaxis and deep venous thrombosis prophylaxis. Continue physical therapy, pain management and orthopedic followup. This patient is seen and examined with Dr. Simmons. Discussed assessment and plan as described above. Thank you for this consult and we will follow with you. Dileep Og APN Jefferson Simmons MD [facility]
[2018-05-05] MEDS: POLYETHYLENE GLYCOL 3350 17 GM/Dose PACKET PO SCH (11:00)
--- NOTE | 2018-05-05 15:56 | PN ---
DATE: 05/05/2018 LOCATION: The patient in room 313, bed 2. REASON FOR CONSULTATION AND FOLLOWUP: Chest pain, shortness of breath, COPD, history of pacemaker insertion, hip pain, and deconditioning. SUBJECTIVE: The patient was in medical floor, now she is in transitional care unit for deconditioning. She was admitted to medical floor with chest pain, which was most likely musculoskeletal. She also had shortness of breath with exacerbation of COPD. The patient had pacemaker insertion, also complained of hip pain for which she was seen by Dr. Rick of Orthopedics, who injected in the right hip, intra-articular injection. The patient is now getting physical therapy. The patient's chest pain has improved and local tenderness has improved. PHYSICAL EXAMINATION: VITAL SIGNS: Blood pressure 149/96, respirations 18, pulse 91, and temperature 97.8. HEENT: Head is normocephalic. Eyes: Pupils normal, conjunctivae normal. Nose and throat: Normal. NECK: JVP low. Carotids equal. THORAX: AP diameter normal. LUNGS: No rales, few wheezing. CARDIOVASCULAR: S1 and S2. ABDOMEN: Soft. No tenderness. No organomegaly. Bowel sounds normal. EXTREMITIES: No clubbing. No cyanosis. LABORATORY DATA: Shows WBC 10, hemoglobin 15, hematocrit 43.5, platelets 224. Sodium 132, potassium 4.2, BUN 55, creatinine 1.1, AST 45, and ALT 51. DIAGNOSES: Chest pain, musculoskeletal; shortness of breath with exacerbation of chronic obstructive pulmonary disease; status post cardiac catheterization in 05/2017, essentially normal coronaries; mild pulmonary hypertension; history of tobacco abuse in the past; hip pain, status post intra-articular injection in the right hip; deconditioning; status post pacemaker insertion; hypertension; diabetes; and hyperlipidemia. PLAN: To continue present therapy of spironolactone 25 mg p.o. daily and DuoNeb hand nebulizer therapy, aspirin 81 mg daily, furosemide 40 daily, Lipitor 10 daily,Lovenox 40 mg subcu daily as needed, calcitonin 200 international units daily, prednisone 10 mg daily, Protonix 40 daily, azithromycin 250 mg p.o. daily, and Xanax 0.25 t.i.d. We will repeat CBC, SMA-7, magnesium, and phosphorus in the morning. We will follow with you. Jefferson Solomon MD [facility] # [id number]
--- NOTE | 2018-05-05 23:51 | PN ---
DATE: 05/05/2018 SUBJECTIVE: The patient was seen and examined at the bedside on 05/05/2018, looking comfortable, complaining about back pain and hip pain. Does not look like in acute distress. No overnight event happened. No cough. No shortness of breath. No chest pain. No palpitations. No fever. No chills. PHYSICAL EXAMINATION: VITAL SIGNS: Blood pressure 140/90, pulse 90, temperature 97.6, oxygenation saturation 98%. HEENT: Head is normocephalic, atraumatic. Eyes, PERRLA. Extraocular muscles intact. Conjunctivae clear. Nose patent. Mucous membranes moist. NECK: Supple. No carotid bruits. No JVD or thyromegaly. CHEST: Bilateral symmetrical. HEART: S1 and S2 positive. LUNGS: Few scattered rhonchi bilaterally. ABDOMEN: Soft, nontender, nondistended. No organomegaly. EXTREMITIES: Trace bilateral lower extremity edema. NEUROLOGIC: Awake, alert. Follows simple commands. Moving all four extremities. MEDICATIONS: Tylenol, DuoNeb, Xanax, Brovana, Lipitor, Zithromax, Tessalon Perles, Pulmicort, calcitonin, vitamin D, Lovenox, Robitussin, Synthroid, lidocaine patch, Solu-Medrol, nystatin, Percocet, Protonix, MiraLax, Aldactone. ASSESSMENT AND PLAN: Ms. Cinthya Kimball is a 77-year-old lady came with exacerbation of chronic obstructive lung disease, congestive heart failure, hypothyroidism, anxiety, coronary artery disease, depression, L1 compression fracture, constipation, degenerative joint disease, chronic pain, symptoms of the back and hip. We will discontinue Solu-Medrol. Start the patient on prednisone on tapering doses. Continue inhaled bronchodilators. Gastrointestinal and deep venous thrombosis prophylaxis. We will add mobic medication for the patient's pain. I put consult with pain management with Dr. Cunha. Continue physical therapy. We will follow. Guillermina Kam MD [facility]
[2018-05-06] MEDS: Oxycodone/Acetaminophen 5/325 mg Tab PO PRN ×3 (00:14→18:49)
[2018-05-06] MEDS: guaiFENesin 100 mg/5 ml Syrup UD PO PRN (00:17)
[2018-05-06] MEDS: Levothyroxine 100 MCG TAB PO SCH (06:21)
[2018-05-06] MEDS: Enoxaparin 40 mg Syringe SC SCH (06:21)
[2018-05-06] MEDS: Pantoprazole 40 mg EC Tab PO SCH (06:21)
[2018-05-06 06:32] LABS: BASO # 0.01 K/mm3 (0.0-2.0); BASO % 0.1 % (0.0-3.0); EOS # 0.1 (0.0-0.7); EOS % 0.8 % (1.5-5.0); GRAN # 8.01 (1.4-6.5); GRAN % 71.3 % (50.0-68.0); HEMOGLOBIN 14.3 g/dL (12.0-16.0); LYMPH # 2.1 (1.2-3.4); MEAN CELL VOLUME 92.8 fl (80.0-105.0); MEAN CORPUSCULAR HEMOGLOBIN 31.1 pg (25.0-35.0); MEAN CORPUSCULAR HGB CONC 33.5 g/dl (31.0-37.0); MEAN PLATELET VOLUME 10.1 fl (7.0-11.0); MONO % 8.8 % (1.0-6.0); RBC 4.6 10^6/uL (3.5-6.1); RED CELL DISTRIBUTION WIDTH 14.5 % (11.5-14.5); WHITE BLOOD COUNT 11.2 10^3/uL (4.5-11.0)
[2018-05-06 06:56] LABS: BLOOD UREA NITROGEN 42 mg/dL (7-21); CALCIUM 9.8 mg/dL (8.4-10.5); GFR NON-AFRICAN AMERICAN > 60
[2018-05-06] MEDS: Arformoterol 15 mcg/2 ml Inh Sol IH SCH ×2 (07:17→20:46)
[2018-05-06] MEDS: Budesonide 0.5 mg/2 ml Inhal Susp UD IH SCH ×2 (07:17→20:46)
[2018-05-06] MEDS: Lidocaine 5% Patch TD SCH (10:03)
[2018-05-06] MEDS: Calcitonin 200 Int Units/Inh Nasal Spray (3.7 ml) NS SCH (10:04)
[2018-05-06] MEDS: Nystatin-Triamcinolone Ointment(30 gm) TOP SCH ×2 (10:06→17:27)
[2018-05-06] MEDS: Cholecalciferol 1,000 INTLU TAB PO SCH (10:07)
[2018-05-06] MEDS: POLYETHYLENE GLYCOL 3350 17 GM/Dose PACKET PO SCH (11:00)
--- NOTE | 2018-05-06 15:04 | PN ---
DATE: 05/06/2018 PULMONARY PROGRESS NOTE REFERRING PHYSICIAN: Guillermina Kam MD SUBJECTIVE: The patient is lying in bed, daughter at bedside. The patient reports discomfort to lower back, reports shortness of breath with exertion, occasional cough. No headache, rhinitis, chest pain, abdominal pain, nausea, vomiting, diarrhea, leg pain, leg swelling reported. OBJECTIVE: GENERAL: No acute distress. VITAL SIGNS: Blood pressure 131/81, pulse 76, temperature 98, oxygen saturation 98%. HEENT: Moist mucous membranes. Crowded airway. NECK: Supple. No JVD. LUNGS: Few scattered rhonchi bilaterally. CARDIOVASCULAR: S1, S2 audible. ABDOMEN: Soft, nontender. No distension. No organomegaly. EXTREMITIES: Trace bilateral lower extremity edema. NEUROLOGIC: Awake, alert, verbal, follows commands. MEDICATIONS: Reviewed. Tylenol 650 every 6 hours p.r.n., DuoNeb 3 mL inhalation every 4 hours p.r.n., Xanax 0.25 mg 3 times a day, Brovana 15 mcg every 12 hours, aspirin 81 mg daily, Lipitor 10 mg at dinner, Zithromax 250 mg p.o. daily, Tessalon Perles 100 mg 3 times a day, Pulmicort 1 mg inhalation every 12 hours, calcitonin (sal[place]) 200 nasal spray daily, vitamin D 1000 units daily, Lovenox 40 mg subcutaneously daily, Lasix 40 mg daily, Robitussin 100 mg every 4 hours p.r.n., Synthroid 100 mcg daily, lidocaine patch topically daily to affected area, Mobic 15 mg daily, nystatin and triamcinolone ointment topically twice a day to affected area, Percocet 5/325 mg 1 tab every 6 hours p.r.n. severe pain, Protonix 40 mg daily, MiraLax 17 g daily, prednisone 10 mg daily, spironolactone 25 mg daily. LABORATORY DATA: Reviewed. WBC 11.2, RBC 4.6, hemoglobin 14.3, hematocrit 42.7, platelets 229. Sodium 130, potassium 4.5, chloride 87, carbon dioxide 37, anion gap 10, BUN 42, creatinine 0.9, GFR greater than 60, random glucose 146, calcium 9.8, phosphorus 2.7, magnesium 1.9. IMPRESSION AND PLAN: Chronic obstructive lung disease, congestive heart failure, hypothyroidism, anxiety disorder, coronary artery disease, depression, L1 compression fracture, constipation. Pulmonary point of view, continue prednisone 10 mg daily, we will taper prednisone tomorrow. Continue inhaled bronchodilators. Continue antibiotic therapy, gastric prophylaxis, deep venous thrombosis prophylaxis. The patient has consult with pain management. This patient was seen and examined with Dr. Simmons. Discussed assessment and plan as described above. Thank you for this consult. We will follow with you. Dileep Og APN Jefferson Simmons MD
--- NOTE | 2018-05-06 18:06 | PN ---
DATE: 05/06/2018 LOCATION: The patient is in room 313, bed 2. REASON FOR CONSULTATION: Followup chest pain, shortness of breath, COPD, history of pacemaker insertion, hip pain, deconditioning. SUBJECTIVE: The patient is lying in the bed without any chest pain, shortness of breath. She is again complaining of hip pain. Denies any palpitation. The patient had injection by Dr. Rick, Orthopedics, who injected in the right hip, intra-articular injection. The patient continued to get physical therapy. PHYSICAL EXAMINATION: VITAL SIGNS: Blood pressure 108/67, respirations 20, pulse 80, temperature 98.2. HEENT: Head is normocephalic. Eyes: Pupils normal. Conjunctivae normal. Nose and throat: Normal. NECK: JVP low. Carotids equal. THORAX: AP diameter normal. LUNGS: No rales. CARDIOVASCULAR: S1 and S2. ABDOMEN: Soft. No tenderness. No organomegaly. Bowel sounds normal. EXTREMITIES: No clubbing. No cyanosis. LABORATORY DATA: WBC 11.2, hemoglobin 14.3, hematocrit 42.7, platelets 229. Sodium 130, potassium 4.5, BUN 42, creatinine 0.9, random sugar 146. Calcium, phosphorus, magnesium normal. DIAGNOSES: Chest pain, musculoskeletal, which has improved; shortness of breath with exacerbation of chronic obstructive pulmonary disease, status post cardiac catheterization in 05/2017, essentially normal coronaries; mild pulmonary hypertension; history of tobacco abuse in the past; hip pain, status post intra-articular injection in the right hip; deconditioning; status post permanent pacemaker insertion; hypertension; diabetes; hyperlipidemia. PLAN: To continue physical therapy along with the medications, which the patient is continued to get. So, we will continue to follow closely with you. Jefferson Solomon MD
[2018-05-07] MEDS: Oxycodone/Acetaminophen 5/325 mg Tab PO PRN ×2 (02:53→08:22)
[2018-05-07] MEDS: Pantoprazole 40 mg EC Tab PO SCH (05:29)
[2018-05-07] MEDS: Levothyroxine 100 MCG TAB PO SCH (05:30)
[2018-05-07] MEDS: Enoxaparin 40 mg Syringe SC SCH (05:30)
[2018-05-07] MEDS: Budesonide 0.5 mg/2 ml Inhal Susp UD IH SCH ×2 (07:23→20:56)
[2018-05-07] MEDS: Arformoterol 15 mcg/2 ml Inh Sol IH SCH ×2 (07:23→20:56)
--- NOTE | 2018-05-07 08:40 | PN ---
DATE: 05/06/2018 SUBJECTIVE: The patient is a 77-year-old female. The patient was seen and examined at the bedside on 05/06/2018 and looking comfortable. No headache. No dizziness. No chest pain. No palpations. No coughing. No shortness of breath. No rhinitis or chest pain or abdominal pain. No swelling of the legs. PHYSICAL EXAMINATION: GENERAL: The patient is afebrile. VITAL SIGNS: Blood pressure 130/80, pulse is 70, respiratory rate 18, and pulse oxygenation 98%. HEENT: Head, normocephalic, atraumatic. Eyes, PERRLA. Extraocular muscles intact. Conjunctivae clear. Nose patent. Mucous membranes moist. NECK: Supple. No carotid bruit. No JVD or thyromegaly. CHEST: Bilaterally symmetrical. HEART: S1 and S2 positive. LUNGS: Clear to auscultation. ABDOMEN: Soft. Bowel sounds present. No organomegaly. EXTREMITIES: No edema. No cyanosis. NEUROLOGIC: The patient is awake and alert, moving all 4 extremities. No focal deficit. MEDICATIONS: Tylenol, DuoNeb, Xanax, Brovana, aspirin, Lipitor, Zithromax, Tessalon, Pulmicort, vitamin D, Lovenox, Lasix, Robitussin, Synthroid, lidocaine patch, Mobic, nystatin and triamcinolone ointment topically, Percocet, Protonix, Miralax, spironolactone, and prednisone tapering doses. LABORATORY DATA: White blood cells 11.2, hemoglobin 4.6, hematocrit 42.7, and platelets 329. Sodium 130, potassium 4.5, BUN 42, creatinine 0.9. ASSESSMENT AND PLAN: The patient is a 77-year-old lady with multiple medical problems, chronic pain syndrome, addiction of pain medications and narcotics, chronic obstructive lung disease, congestive heart failure, hypothyroidism, anxiety, coronary artery disease, depression, L1 compression fracture, and constipation. The patient is getting prednisone of the steroids. Continue the bronchodilators. Pain management consult called. Pulmonary is on the case. Gastrointestinal and deep venous thrombosis prophylaxis. Repeat laboratories. We will follow up. Guillermina Kam MD
[2018-05-07] MEDS: Lidocaine 5% Patch TD SCH (10:33)
[2018-05-07] MEDS: Calcitonin 200 Int Units/Inh Nasal Spray (3.7 ml) NS SCH (10:33)
[2018-05-07] MEDS: Cholecalciferol 1,000 INTLU TAB PO SCH (10:33)
[2018-05-07] MEDS: POLYETHYLENE GLYCOL 3350 17 GM/Dose PACKET PO SCH (10:34)
[2018-05-07] MEDS: Nystatin-Triamcinolone Ointment(30 gm) TOP SCH ×2 (10:35→17:09)
--- NOTE | 2018-05-07 12:07 | PN ---
DATE: 05/07/2018 REASON FOR CONSULTATION AND FOLLOWUP: Shortness of breath, COPD, history of pacemaker, hip pain and complaint of back pain and deconditioned of body. SUBJECTIVE: The patient denies any chest pain, shortness of breath or any palpitation. OBJECTIVE: As follows; GENERAL: Not in apparent distress. VITAL SIGNS: Temperature afebrile, heart rate 87, and blood pressure 127/81. HEENT: PERRLA. Extraocular muscles intact. NECK: Supple. No carotid bruit or thyromegaly. CHEST: Clear to auscultation. HEART: S1 and S2, regular. ABDOMEN: Soft. EXTREMITIES: Clubbing and cyanosis negative. LABORATORY DATA: Blood workup as follows; WBC 11.2, hemoglobin 14.3, hematocrit 42.7, platelet count 229. Chemistry shows sodium of 130, potassium 4.5, chloride 87, carbon dioxide 37, anion gap of 10, BUN 42, creatinine 0.9, magnesium 1.9. IMPRESSION: A 77-year-old female with past medical history of tobacco abuse, chronic obstructive pulmonary disease, admitted with a chest pain, back pain, chest pain is atypical, musculoskeletal, history of cardiac catheterization on 06/17/2017, essential normal coronaries, mild pulmonary hypertension, as mentioned, history of permanent pacemaker. History of recent pacemaker interrogation done, pacemaker is good from one year and a half, no arrhythmia, no issues noted. We will call Dr. Anatoliy Vidal, for pain management for patient complaining of the back pain. Discussed with the daughter, Lion will follow with you. Thank you Dr. Kam for providing the opportunity in taking care of patient, Cinthya Kimball. We will follow with you. Jefferson Levine MD [facility]
--- NOTE | 2018-05-07 13:23 | PN ---
DATE: 05/07/2018 PULMONARY PROGRESS NOTE REFERRING PHYSICIAN: Guillermina Kam MD SUBJECTIVE: The patient is sitting in chair in room, family at bedside. Reports pain to lower back, reports some improvement in shortness of breath and cough. No headache, rhinitis, chest pain, abdominal pain, nausea, vomiting, diarrhea, leg pain, or leg swelling reported. OBJECTIVE: GENERAL: No acute distress. VITAL SIGNS: Blood pressure 126/81, pulse 87, temperature 97.8, oxygen saturation 97%. HEENT: Moist mucous membranes. Crowded airway. NECK: Supple. No JVD. LUNGS: Few scattered rhonchi bilaterally. CARDIOVASCULAR: S1, S2 audible. ABDOMEN: Soft, nontender. No distension. No organomegaly. EXTREMITIES: Trace bilateral lower extremity edema. NEUROLOGIC: Awake, alert, verbal, follows commands. MEDICATIONS: Reviewed. Tylenol 650 every 6 hours p.r.n. moderate pain, DuoNeb 3 mL inhalation every 4 hours p.r.n., Xanax 0.25 mg 3 times a day, Brovana 15 mcg every 12 hours, aspirin 81 mg daily, Lipitor 10 mg at dinner, Tessalon Perles 100 mg 3 times a day, Pulmicort 1 mg inhalation every 12 hours, calcitonin 200 nasal spray daily, vitamin D 1000 units daily, Lovenox 40 mg daily, Lasix 40 mg daily, Robitussin 100 mg every 4 hours p.r.n., Synthroid 100 mcg daily, Lidoderm patch topically to affected area, Mobic 15 mg daily, nystatin and triamcinolone ointment topically twice a day to affected area, Percocet 10/325 mg every 6 hours p.r.n., Protonix 40 mg daily, MiraLax 17 g daily, prednisone 10 mg daily, spironolactone 25 mg daily, Zanaflex 2 mg at bedtime. LABORATORY DATA: Reviewed. No new labs since yesterday. IMPRESSION AND PLAN: Chronic obstructive lung disease, congestive heart failure, hypothyroidism, anxiety disorder, coronary artery disease, depression, L1 compression fracture, constipation. Pulmonary point of view, we will discontinue Zithromax. Continue prednisone 10 mg daily. Continue inhaled bronchodilators. Continue antibiotic therapy, gastric prophylaxis, deep venous thrombosis prophylaxis. The patient was seen by pain management this morning. This patient was seen and examined with Dr. Simmons. Discussed assessment and plan as described above. Thank you for this consult. We will follow with you. Dileep Og APN Jefferson Simmons MD [facility]
[2018-05-07] MEDS: Oxycodone/Acetaminophen 10/325 mg Tab PO PRN (14:41)
[2018-05-08] MEDS: Oxycodone/Acetaminophen 10/325 mg Tab PO PRN ×2 (00:24→21:56)
[2018-05-08] MEDS: Levothyroxine 100 MCG TAB PO SCH (05:47)
[2018-05-08] MEDS: Enoxaparin 40 mg Syringe SC SCH (05:48)
[2018-05-08] MEDS: Pantoprazole 40 mg EC Tab PO SCH (05:48)
[2018-05-08] MEDS: Arformoterol 15 mcg/2 ml Inh Sol IH SCH ×2 (06:15→07:10)
[2018-05-08] MEDS: Budesonide 0.5 mg/2 ml Inhal Susp UD IH SCH ×2 (07:09→21:15)
--- NOTE | 2018-05-08 08:14 | PN ---
DATE: 05/07/2018 SUBJECTIVE: The patient seen and examined at the bedside on 05/07/2018, looking comfortable, sitting on the chair, son and [id number] were sitting on the bedside also. Still complaining about pain in the back and legs. No fever. No chills. No hematuria. No hematochezia. No shortness of breath. PHYSICAL EXAMINATION: VITAL SIGNS: Blood pressure 120/80, pulse 87, temperature 98.3, oxygenation 97% with nasal cannula. HEENT: Head: Normocephalic, atraumatic. Eyes: PERRLA. Extraocular muscles intact. Conjunctivae clear. Nose patent. NECK: Supple. No carotid bruits or thyromegaly. CHEST: Bilaterally symmetrical. HEART: S1 and S2 positive. LUNGS: Clear to auscultation. ABDOMEN: Soft. Bowel sounds positive. No organomegaly. EXTREMITIES: Trace bilateral lower extremity edema. NEUROLOGIC: The patient is awake, alert, follows simple commands. MEDICATIONS: Tylenol, DuoNeb, Xanax, Brovana, Lipitor, Tessalon, Pulmicort, vitamin D, Lovenox, Lasix, Robitussin, Synthroid, Lidoderm patch topically to the affected area, Mobic, nystatin and triamcinolone ointment, Percocet, Protonix, MiraLax, prednisone, spironolactone, Zanaflex. LABORATORY DATA: We do not have labs today, but will repeat all labs. ASSESSMENT AND PLAN: Mrs. Cinthya Kimball is a 77-year-old lady with hypothyroidism, chronic back pain, hip pain, chronic obstructive lung disease, congestive heart failure, anxiety disorder, coronary artery disease, L1 compression fracture, constipation. Dr. Simmons discussed prednisone of the tapering doses. Repeat labs. We will follow up. Guillermina Kam MD [facility]
[2018-05-08] MEDS ORDERED: Alum-Mag Hydrox-Simethicone Susp (30 mL) PO PRN (10:55)
--- NOTE | 2018-05-08 13:10 | PN ---
DATE: 05/08/2018 LOCATION: The patient in room 313, bed 2. REASON FOR CONSULTATION AND FOLLOWUP: Shortness of breath, COPD, history of pacemaker, hip pain, back pain deconditioned. SUBJECTIVE: Patient still complains of hip pain. Denies any chest pain or palpitation. She said breathing is better. Today, also she feels discomfort in stomach, but had normal bowel movement. Denied nausea or vomiting. Patient complained of hip pain, also feeling discomfort in the abdomen without any diarrhea, vomiting or nausea. Her breathing is stable. Denies palpitation, denies chest pain. PHYSICAL EXAMINATION VITAL SIGNS: Blood pressure 105/65, respirations 18, pulse 99, temperature 98.1. HEENT: Head is normocephalic. Eyes; pupils normal. Conjunctivae normal. Nose and throat; normal. NECK: JVP low. Carotids equal. THORAX: AP diameter normal. LUNGS: rales. CARDIOVASCULAR: S1 and S2. ABDOMEN: Soft. Bowel sound normal. No tenderness, no rigidity. EXTREMITIES: No clubbing. No cyanosis. LABORATORY DATA: WBC 11.2., hemoglobin 14.3, hematocrit 42.7, and platelet 229. Sodium 130, potassium 4.5, BUN 42, and creatinine 0.9. DIAGNOSES: Chronic obstructive pulmonary disease, deconditioning, status post pacemaker insertion, cardiac cath in 06/17/2017, normal coronaries, mild pulmonary hypertension, pacemaker still has life of one and half years on interrogation, no arrhythmia noted. PLAN: Plan is to continue present therapy, Dr. Anatoliy Vidal has been already called for pain management for patient's continuous complaint of pain and Dr. Kam prescribed her Zofran for her stomach discomfort and we will continue physical therapy, we will follow. Jefferson Solomon MD
[2018-05-08] MEDS: Lidocaine 5% Patch TD SCH (13:30)
[2018-05-08] MEDS: Calcitonin 200 Int Units/Inh Nasal Spray (3.7 ml) NS SCH (13:30)
[2018-05-08] MEDS: POLYETHYLENE GLYCOL 3350 17 GM/Dose PACKET PO SCH (13:31)
[2018-05-08] MEDS: Nystatin-Triamcinolone Ointment(30 gm) TOP SCH ×2 (13:31→17:33)
[2018-05-08] MEDS: Cholecalciferol 1,000 INTLU TAB PO SCH (13:32)
--- NOTE | 2018-05-08 14:46 | PN ---
DATE: 05/08/2018 PULMONARY PROGRESS NOTE REFERRING PHYSICIAN: Guillermina Kam MD SUBJECTIVE: The patient is sitting up in chair in room reporting stomach discomfort. Reports she has had bowel movement. No headache, rhinitis, chest pain, abdominal pain, cough, nausea, vomiting, diarrhea, leg pain or leg swelling reported. The patient does report shortness of breath with exertion. OBJECTIVE GENERAL: No acute distress. VITAL SIGNS: Blood pressure 105/65, pulse 99, temperature 98.1 and oxygen saturation 92%. HEENT: Moist mucous membrane. Crowded airway. NECK: Supple. No JVD. CARDIOVASCULAR: S1 and S2 audible. LUNGS: Few scattered rhonchi bilaterally. ABDOMEN: Soft and nontender. No distension. No organomegaly. Positive bowel sounds. EXTREMITIES: Trace bilateral lower extremity edema. NEUROLOGIC: Awake, alert, and verbal. Follows commands. LABORATORY DATA: Reviewed. No new labs since yesterday. MEDICATIONS: Reviewed; Tylenol 650 mg every 6 hours p.r.n., moderate pain, DuoNeb 3 mL inhalation every 4 hours p.r.n., Xanax 0.25 mg three times a day, Brovana 15 mcg every 12 hours, aspirin 81 mg daily, Lipitor 10 mg at dinner, Tessalon Perles 100 mg three times a day, Pulmicort 1 mg inhalation every 12 hours, calcitonin-[place] 200 units nasal spray daily, vitamin D 1000 units daily, Lovenox 40 mg subcu daily, Lasix 40 mg daily, Robitussin 100 mg every 4 hours p.r.n., Synthroid 100 mcg daily, lidoderm patch topically to affected area daily, Mobic 15 mg daily, nystatin and triamcinolone ointment 1 g topically towards the day, Zofran 4 mg IV push every 6 hours p.r.n., Percocet 10/325 mg every 6 hours p.r.n., Protonix 40 mg daily, MiraLax 17 g daily, Prednisone 10 mg daily, spironolactone 25 mg daily and Zanaflex 2 mg at bedtime. IMPRESSION AND PLAN: Chronic obstructive lung disease, congestive heart failure, hypothyroidism, anxiety disorder, coronary artery disease, depression, L1 compression fracture. The patient's pulmonary point of view. We will decrease prednisone 10 mg to 5 mg daily. Continue inhale bronchodilator. Continue gastric prophylaxis, deep venous thrombosis, prophylaxis. We will add Maalox 30 mL every 6 hours p.r.n. for indigestion. Continue follow up with pain management. This patient was seen and examined with Dr. Simmons. Discussed assessment and plan as described above. Thank you for this consult and we will follow with you. Dileep Og APN Jefferson Simmons MD [facility]
--- NOTE | 2018-05-08 21:16 | CON ---
DATE: 05/08/2018 HISTORY OF PRESENT ILLNESS: She is a 77-year-old female who has a main complaint of low back pain involving the area of the thoracolumbar spine. X-rays done on approximately the early April, approximately 04/29/2018 showed acute compression fracture at L1 with a visible fracture on the CAT scan in the coronal plane. There is no involvement of the canal on the spine. There are no fragments that are loose looks like, but the patient needs a spine surgeon consult because her main complaint now is one of paralumbar pain around the thoracolumbar region, and no neurologic deficits noted. I did see her approximately a week ago with pain in the right hip, not in the groin, but in the trochanteric area consistent with bursitis, traumatic of her right hip because she did fall in the hospital approximately [place], but there is no fracture on the plain x-ray and no fracture on the CAT scan of the hip done soon after, just one bursitis of the right hip and the injection did help her temporarily, it was done when I first saw her around [place] time. She is on mild pain meds now, but the pain is still significant and I told the patient she really needs a spine surgeon consult, so we are going to get spine surgeon group on consult and see if they would do anything different. She does have past history of back pain, where she got epidurals from a local inspector penetrant with not good results i told her she needs a spine surgeon to evaluate her condition and see if anything more needs to be done, and we are getting her up out of bed and pain is too bad to go home and see what the spine surgeon in the hospital says about her condition, but she has no hip fracture. I was treating her for right hip bursitis, which was helped by the cortisone injection a week or 10 days ago, but now she needs further evaluation by a spine surgeon for that L1 fracture that could be causing her pain. Herrera Rick DO [facility]
[2018-05-08] MEDS: guaiFENesin 100 mg/5 ml Syrup UD PO PRN (21:59)
[2018-05-09] MEDS: Enoxaparin 40 mg Syringe SC SCH (05:32)
[2018-05-09] MEDS: Levothyroxine 100 MCG TAB PO SCH (05:33)
[2018-05-09] MEDS: Pantoprazole 40 mg EC Tab PO SCH (05:33)
[2018-05-09] MEDS: Oxycodone/Acetaminophen 10/325 mg Tab PO PRN (06:22)
[2018-05-09] MEDS: guaiFENesin 100 mg/5 ml Syrup UD PO PRN ×2 (06:24→14:05)
[2018-05-09] MEDS: Arformoterol 15 mcg/2 ml Inh Sol IH SCH ×2 (07:22→20:08)
[2018-05-09] MEDS: Budesonide 0.5 mg/2 ml Inhal Susp UD IH SCH ×2 (07:23→20:08)
[2018-05-09] MEDS: Lidocaine 5% Patch TD SCH (10:21)
[2018-05-09] MEDS: Calcitonin 200 Int Units/Inh Nasal Spray (3.7 ml) NS SCH (10:21)
[2018-05-09] MEDS: POLYETHYLENE GLYCOL 3350 17 GM/Dose PACKET PO SCH (10:21)
[2018-05-09] MEDS: Cholecalciferol 1,000 INTLU TAB PO SCH (10:22)
[2018-05-09] MEDS: Nystatin-Triamcinolone Ointment(30 gm) TOP SCH ×2 (11:16→17:32)
--- NOTE | 2018-05-09 13:57 | CP.PCM.CON ---
History of Present Illness - History of Present Illness History of Present Illness: SPINE Pt seen and examined. Full consult dictated. Rec consult with Dr. Mai for eval of possible verteboplasty. Otherwise obtain a TLSO brace for pt to wear when OOB. Past Patient History - Infectious Disease Hx of Infectious Diseases: None - Tetanus Immunizations Tetanus Immunization: Unknown - Past Medical History & Family History Past Medical History?: Yes - Past Social History Smoking Status: Former Smoker - CARDIAC Hx Cardiac Disorders: Yes Hx Congestive Heart Failure: Yes Hx Hypertension: Yes - PULMONARY Hx Chronic Obstructive Pulmonary Disease (COPD): Yes - NEUROLOGICAL Hx Neurological Disorder: Yes Hx Dizziness: Yes Hx Migraine: Yes - HEENT Hx HEENT Problems: Yes ([place]) - RENAL Hx Chronic Kidney Disease: No - ENDOCRINE/METABOLIC Hx Hypothyroidism: Yes - HEMATOLOGICAL/ONCOLOGICAL Hx Blood Disorders: No - INTEGUMENTARY Hx Dermatological Problems: Yes Other/Comment: BILATERAL LE CELLULITIS-REDDENED,ERYTHEMA.DRY SKIN,EDEMA +1.TOP OF FEET +3PITTING EDEMA. - MUSCULOSKELETAL/RHEUMATOLOGICAL Hx Degenerative Joint Disease: Yes Hx Falls: Yes Hx Fractures: Yes Hx Unsteady Gait: Yes - GASTROINTESTINAL Other/Comment: constipation - GENITOURINARY/GYNECOLOGICAL Hx Genitourinary Disorders: No Hx Reproductive Disorders: No - PSYCHIATRIC Hx Anxiety: Yes - SURGICAL HISTORY Hx Surgeries: Yes Hx Orthopedic Surgery: Yes (r knee) - ANESTHESIA Hx Anesthesia: Yes Hx Anesthesia Reactions: No Hx Malignant Hyperthermia: No Meds Allergies/Adverse Reactions: Allergies Allergy/AdvReac Type Severity Reaction Status Date / Time levofloxacin [From Levaquin] Allergy Severe ANAPHYLAXIS Verified 11/14/17 14:27 - Medications Medications: Current Medications Acetaminophen (Tylenol 325mg Tab) 650 mg PO Q6H PRN; Protocol PRN Reason: Pain, moderate (4-7) Last Admin: 05/07/18 05:28 Dose: 650 mg Al Hydrox/Mg Hydrox/Simethicone (Maalox Plus 30 Ml) 30 ml PO Q6H PRN PRN Reason: Indigestion / Heartburn Albuterol/Ipratropium (Duoneb 3 Mg/0.5 Mg (3 Ml) Ud) 3 ml IH [id number] PRN; Protocol PRN Reason: Shortness of Breath Last Admin: 05/04/18 14:51 Dose: 3 ml Alprazolam (Xanax) 0.25 mg PO TID GRETEL; Protocol Stop: 05/12/18 10:01 Last Admin: 05/09/18 10:26 Dose: 0.25 mg Arformoterol Tartrate (Brovana) 15 mcg IH [id number] GRETEL; Protocol Last Admin: 05/09/18 07:22 Dose: 15 mcg Aspirin (Ecotrin) 81 mg PO 0800 GRETEL; Protocol Last Admin: 05/09/18 08:12 Dose: 81 mg Atorvastatin Calcium (Lipitor) 10 mg PO DIN GRETEL; Protocol Last Admin: 05/08/18 17:32 Dose: 10 mg Benzonatate (Tessalon Perles) 100 mg PO TID GRETEL; Protocol Last Admin: 05/09/18 10:22 Dose: 100 mg Budesonide (Pulmicort Respules) 1 mg IH [id number] GRETEL; Protocol Last Admin: 05/09/18 07:23 Dose: 1 mg Calcitonin [place] (Miacalcin) 200 intlu NS DAILY GRETEL Last Admin: 05/09/18 10:21 Dose: 1 spray Cholecalciferol (Vitamin D) 1,000 intlu PO DAILY GRETEL; Protocol Last Admin: 05/09/18 10:22 Dose: 1,000 intlu Enoxaparin Sodium (Lovenox) 40 mg SC 0630 GRETEL; Protocol Last Admin: 05/09/18 05:32 Dose: 40 mg Furosemide (Lasix) 40 mg PO DAILY GRETEL; Protocol Last Admin: 05/09/18 10:20 Dose: 40 mg Guaifenesin (Robitussin) 100 mg PO Q4H PRN PRN Reason: Cough Last Admin: 05/09/18 06:24 Dose: 100 mg Levothyroxine Sodium (Synthroid) 100 mcg PO 0630 GRETEL; Protocol Last Admin: 05/09/18 05:33 Dose: 100 mcg Lidocaine (Lidoderm) 1 ea TD DAILY GRETEL Last Admin: 05/09/18 10:21 Dose: 1 ea Meloxicam (Mobic) 15 mg PO DAILY GRETEL Last Admin: 05/09/18 10:21 Dose: 15 mg Nystatin/Triamcinolone Acetonide (Nystatin/Triamcinolone Ointment) 1 gm TOP BID GRETEL; Protocol Last Admin: 05/09/18 11:16 Dose: Not Given Ondansetron HCl (Zofran Inj) 4 mg IVP Q6H PRN PRN Reason: Nausea/Vomiting Last Admin: 05/08/18 11:22 Dose: 4 mg Oxycodone/Acetaminophen (Percocet 10/325 Mg Tab) 1 tab PO Q6H PRN; Protocol PRN Reason: Pain, severe (8-10) Last Admin: 05/09/18 06:22 Dose: 1 tab Pantoprazole Sodium (Protonix Ec Tab) 40 mg PO 0600 GRETEL; Protocol Last Admin: 05/09/18 05:33 Dose: 40 mg Polyethylene Glycol (Miralax) 17 gm PO DAILY GRETEL; Protocol Last Admin: 05/09/18 10:21 Dose: Not Given Prednisone (Prednisone Tab) 5 mg PO DAILY RGETEL Last Admin: 05/09/18 10:20 Dose: 5 mg Spironolactone (Aldactone) 25 mg PO DAILY GRETEL; Protocol Last Admin: 05/09/18 10:20 Dose: 25 mg Tizanidine HCl (Zanaflex) 2 mg PO HS GRETEL; Protocol Last Admin: 05/08/18 21:58 Dose: 2 mg Results - Vital Signs Recent Vital Signs: Last Vital Signs Temp 97.9 F 05/08/18 16:00 Pulse 98 H 05/08/18 16:43 Resp 18 05/08/18 16:00 BP 129/68 05/09/18 10:20 Pulse Ox 93 L 05/08/18 16:43 - Labs Result Diagrams: 05/06/18 06:00 05/06/18 06:00 Labs: Laboratory Results - last 24 hr 05/09/18 05:06 POC Glucose (mg/dL) 138 H
--- NOTE | 2018-05-09 15:31 | CON ---
DATE: 05/09/2018 REASON FOR CONSULTATION: Lumbar compression fracture. HISTORY OF PRESENT ILLNESS: The patient is 77, young lady, states she fell on [address] and has been complaining of back pain since. She was admitted to the hospital through the emergency room on 04/29/2018 with complaints of chest pain and shortness of breath. Her cardiology workup did not show any acute CT. Because of her continued complaints of severe back pain, a CT scan was done, which revealed the compression fracture at L1. She denies any true radicular complaints. She complaints of numbness in her feet, but that is only with prolonged sitting. She just states the only thing that helps the pain at all is the pain medicine she is receiving, but otherwise, if she is not taking that she is fairly immobile. PAST MEDICAL HISTORY: Significant for CHF, COPD, hypothyroidism, hypercholesterolemia. MEDICATIONS: Medications are as listed on the chart, which include probable steroid inhalers for her COPD which she has been taking for years. She is also on Miacalcin nasal spray for osteoporosis. ALLERGIES: SHE IS ALLERGIC TO LEVOFLOXACIN. PHYSICAL EXAMINATION: GENERAL: The patient is very tender in the upper lumbar region, both over the spinous processes and over the right rib cage. EXTREMITIES: She moves all extremities actively. NEUROLOGIC: Grossly her neurologic exam is intact. LABORATORY DATA: CT scan which was done on 04/30/2018 reveals fracture of L1. The central part of the vertebral body is compressed. No significant retropulsion. Overall alignment is maintained. IMPRESSION: Significant compression fracture at L1. She did not appear to be unstable in terms of requiring surgical intervention. However, it is now 3 weeks from the time she fell and she is still complaining of severe pain. It may be worthwhile to have Dr. aVlentin Mai evaluate her for possible vertebroplasty to see if that would quiet her pain and allow her to be more mobile. If he does not feel that procedure is indicated, then I would obtain a TLSO brace for her to be worn whenever out of bed and just follow the natural history where over the course of time, especially between the first and second months following the injury, the pain should gradually subside, as the fracture heals. Thank you for allowing me to participate in the care of your patient. Billy Chahal MD [facility] # [id number]
--- NOTE | 2018-05-09 16:14 | PN ---
DATE: 05/09/2018 LOCATION: The patient in room 313, bed 2. REASON FOR CONSULTATION AND FOLLOWUP: Shortness of breath, COPD, history of pacemaker insertion, hip pain, back pain deconditioned. SUBJECTIVE: Patient is still complaining of hip pain off and on, complains of shortness of breath, but denies any chest pain. Denies any palpitation. The patient also yesterday complained of abdominal discomfort, today, abdominal discomfort seemed to be little better. Denies vomiting or diarrhea. The patient is getting physical therapy for her deconditioning. PHYSICAL EXAMINATION: VITAL SIGNS: Blood pressure 129/68, respirations 18, pulse 98, and temperature 97.9. HEENT: Head is normocephalic. Eyes; pupils normal. Conjunctivae normal. Nose and throat; normal. NECK: JVP low. Carotids equal. THORAX: AP diameter normal. LUNGS: No significant rales. CARDIOVASCULAR: S1 and S2. ABDOMEN: Soft. No organomegaly. Bowel sound normal. EXTREMITIES: No clubbing. No cyanosis. LABORATORY DATA: WBC 11.2., hemoglobin 14.3, hematocrit 42.7, and platelet 229. Sodium 130, potassium 4.5, BUN 42, and creatinine 0.9. Random sugar 138, AST 45, ALT 51. Total protein and albumin normal. DIAGNOSES: Exacerbation of chronic obstructive pulmonary disease, deconditioning, status post pacemaker insertion, cardiac cath in 06/17/2017, normal coronaries, mild pulmonary hypertension, status post pacemaker insertion. Pacemaker still has life of one and a half years on interrogation. PLAN: We will continue physical therapy and we will continue medications. Spironolactone 25 daily, aspirin 81 daily, furosemide 40 daily, Lovenox 40 mg subcu daily, Mobic 15 mg daily, prednisolone 5 mg daily, Synthroid 100 mcg daily. We will follow with you closely. Jefferson Solomon MD
--- NOTE | 2018-05-09 17:03 | PN ---
DATE: 05/09/2018 PULMONARY PROGRESS NOTE REFERRING PHYSICIAN: Guillermina Kam MD SUBJECTIVE: The patient is sitting up in chair in room, reports some back pain. No headache, rhinitis, chest pain, abdominal pain, cough, nausea, vomiting, diarrhea, leg pain or leg swelling reported. Shortness of breath occasionally with exertion reported. OBJECTIVE GENERAL: No acute distress. VITAL SIGNS: Blood pressure 129/68, pulse 98, oxygen saturation 93% on room air and temperature 97.9. HEENT: Moist mucous membrane. Crowded airway. NECK: Supple. No JVD. CARDIOVASCULAR: S1 and S2, audible. LUNGS: Few scattered rhonchi bilaterally. ABDOMEN: Soft and nontender. No distension. No organomegaly. EXTREMITIES: Trace bilateral lower extremity edema. NEUROLOGIC: Awake, alert, and verbal. Follows commands. MEDICATIONS: Reviewed; Tylenol 650 mg every 6 hours p.r.n. for moderate pain, Maalox 30 mL every 6 hours p.r.n., DuoNeb 3 mL inhalation every 6 hours p.r.n., Xanax 0.25 mg three times a day, Brovana 15 mcg every 12 hours, aspirin 81 mg daily, Lipitor 10 mg at dinner, Tessalon Perles 100 mg three times a day, Pulmicort 1 mg inhalation every 12 hours, calcitonin 200 units nasal spray daily, vitamin D 1000 units daily, Lovenox 40 mg daily, Lasix 40 mg daily, Robitussin 100 mg every 4 hours p.r.n., Synthroid 100 mcg daily, lidocaine patch topically, Mobic 15 mg daily, nystatin and triamcinolone ointment 1 g topically twice a day, Zofran 4 mg IV push every 6 hours p.r.n., Percocet 10/325 mg 1 tab every 6 hours p.r.n., Protonix 40 mg daily, MiraLax 17 g daily, Prednisone 5 mg daily, spironolactone 25 mg daily and Zanaflex 2 mg at bedtime. LABORATORY DATA: Reviewed. POC glucose 138. IMPRESSION AND PLAN: Chronic obstructive lung disease, congestive heart failure, hypothyroidism, anxiety disorder, coronary artery disease, depression, L1 compression fracture and anxiety. Pulmonary point of view, continue steroids 5 mg daily. Continue inhaled bronchodilators. Continue gastric prophylaxis and deep venous thrombosis prophylaxis. Continue followup with pain management. Continue orthopedic followup. The patient will need full pulmonary function test and sleep study as outpatient. This patient was seen and examined with Dr. Simmons. Discussed assessment and plan as described above. Thank you for this consult and we will follow with you. Dileep Og APN Jefferson Simmons MD
[2018-05-10] MEDS: Oxycodone/Acetaminophen 10/325 mg Tab PO PRN ×2 (05:26→13:40)
[2018-05-10] MEDS: Pantoprazole 40 mg EC Tab PO SCH (05:27)
[2018-05-10] MEDS: Enoxaparin 40 mg Syringe SC SCH (05:32)
[2018-05-10] MEDS: Levothyroxine 100 MCG TAB PO SCH (05:32)
[2018-05-10] MEDS: Arformoterol 15 mcg/2 ml Inh Sol IH SCH ×2 (07:13→21:03)
[2018-05-10] MEDS: Budesonide 0.5 mg/2 ml Inhal Susp UD IH SCH ×2 (07:14→21:04)
[2018-05-10] MEDS: Calcitonin 200 Int Units/Inh Nasal Spray (3.7 ml) NS SCH (09:13)
[2018-05-10] MEDS: Lidocaine 5% Patch TD SCH (09:13)
[2018-05-10] MEDS: POLYETHYLENE GLYCOL 3350 17 GM/Dose PACKET PO SCH (09:13)
[2018-05-10] MEDS: Cholecalciferol 1,000 INTLU TAB PO SCH (09:14)
[2018-05-10] MEDS: guaiFENesin 100 mg/5 ml Syrup UD PO PRN ×2 (09:25→18:02)
[2018-05-10] MEDS: Nystatin-Triamcinolone Ointment(30 gm) TOP SCH ×2 (09:26→18:00)
--- NOTE | 2018-05-10 10:34 | PN ---
DATE: 05/10/2018 PULMONARY PROGRESS NOTE REFERRING PHYSICIAN: Gregory Estrada MD SUBJECTIVE: The patient is sitting in chair in room. No acute distress. No overnight events reported. The patient reports feeling better this morning. No headache, rhinitis, chest pain, abdominal pain, cough, shortness of breath, nausea, vomiting, diarrhea, leg pain or leg swelling reported. The patient reports that back pain has improved. OBJECTIVE GENERAL: No acute distress. VITAL SIGNS: Blood pressure 120/59, pulse 78, temperature 98, and oxygen saturation 99%. HEENT: Moist mucous membranes. Crowded airway. NECK: Supple. No JVD. CARDIOVASCULAR: S1 and S2, audible. LUNGS: Few scattered rhonchi bilaterally. ABDOMEN: Soft and nontender. No distension. No organomegaly. EXTREMITIES: Trace bilateral lower extremity edema. NEUROLOGIC: Awake, alert, and verbal. Follows commands. MEDICATIONS: Reviewed. Tylenol 650 mg every 6 hours p.r.n. for moderate pain, Maalox 30 mL every 6 hours p.r.n., DuoNeb 3 mL inhalation every 4 hours p.r.n., Xanax 0.25 mg 3 times a day, Brovana 15 mcg every 12 hours, aspirin 81 mg daily, Lipitor 10 mg at dinner, Tessalon Perles 100 mg 3 times a day, Pulmicort 1 mg every 12 hours inhalation, calcitonin salmon 200 nasal spray daily, vitamin D 1000 units daily, Lovenox 40 mg daily, Lasix 40 mg daily, Robitussin 100 mg every 4 hours p.r.n., Synthroid 100 mcg daily, Lidoderm patch topically to affected area daily, Mobic 15 mg daily, nystatin and triamcinolone ointment topically twice a day to affected area, Zofran 4 mg IV push every 6 hours p.r.n., Percocet 10/325 mg 1 tab every 6 hours p.r.n. for severe pain, Protonix 40 mg daily, MiraLax 17 g daily, Prednisone 5 mg daily, spironolactone 25 mg daily and Zanaflex 2 mg at bedtime. LABORATORY DATA: Reviewed. No new labs since yesterday. IMPRESSION AND PLAN: Chronic obstructive lung disease, congestive heart failure, hypothyroidism, anxiety disorder, coronary artery disease, depression, L1 compression fracture. Pulmonary point of view, continue steroids, continue inhaled bronchodilators, continue gastric prophylaxis and deep venous thrombosis prophylaxis. Continue followup with pain management, orthopedic followup. The patient will need full pulmonary function test and sleep study as outpatient. This patient was seen and examined with Dr. Simmons. Discussed assessment and plan as described above. Thank you for this consult and we will follow with you. Dileep PrudenceMANUEL Jefferson Simmons MD [facility]
--- NOTE | 2018-05-10 12:08 | PN ---
DATE: 05/10/2018 SUBJECTIVE: The patient has no complaints of any chest pain, no shortness of breath. She says that she does have back pain, it is about 4-5 out of 10. She has difficulty in ambulating and transferring because of pain. OBJECTIVE: VITAL SIGNS: Temperature is 98.1, pulse of 78, blood pressure 122/71, respiration is 19. GENERAL: The patient is lying in bed, flat, comfortable. HEENT: No oral lesion. Anicteric sclerae. Moist mucosa. NECK: No JVD, adenopathy, or thyromegaly. CARDIOVASCULAR: S1 and S2, regular. No murmurs, rubs, or gallops. LUNGS: Clear to auscultation bilaterally. No wheeze, rales, or rhonchi. ABDOMEN: Bowel sounds are positive, soft, nontender and nondistended. EXTREMITIES: No cyanosis, clubbing or edema. LABORATORY DATA: White count of 11.2, hemoglobin 14.3, creatinine is 0.9. Sodium is 130. ASSESSMENT: 1. L1 vertebral fracture. 2. Chronic obstructive pulmonary disease. 3. Coronary artery disease. 4. Hypothyroidism. 5. Anxiety. 6. Constipation. 7. Osteoporosis. PLAN: The patient is currently on Aldactone. She is going to continue with Lasix. She is on Lipitor for dyslipidemia. She is on Lovenox for DVT prophylaxis. The patient is on MiraLax for constipation. She is on meloxicam for pain. She is on Percocet for her pain as well. She states the pain medication does help. She is on Protonix daily. She is on prednisone. She is on Synthroid for hypothyroidism. She is on calcium. She is on vitamin D for her osteoporosis. She is on a heart-healthy diet. I did review the notes from Dr. Chahal. I also spoke with Dr. Rick, yesterday regarding the case who updated me on the patient's fracture. We will wait further decisions regarding procedures that were offered to him. Talked to the patient, she is thinking about her procedures that the procedures and if she should perform them. Gregory Estrada MD [facility] # [id number]
[2018-05-10 16:29] VITALS: PULSE 75; RESP 16; TEMP 97.7; O2SAT 100
--- NOTE | 2018-05-10 21:35 | PN ---
DATE: 05/10/2018 LOCATION: The patient in room 313, bed 2. REASON FOR CONSULTATION: Followup shortness of breath, COPD, history of pacemaker insertion, hip pain, back pain, deconditioned, hypertension. SUBJECTIVE: The patient off and on gets shortness of breath. Her shortness of breath is better than before. The patient also complains of hip pain which seems to be also getting less. The patient denied any palpitation. The patient sitting comfortably in chair at present. Her GI symptoms also are better. She was complaining vague discomfort which is also better. PHYSICAL EXAMINATION: VITAL SIGNS: Blood pressure 122/71, respirations 19, pulse 78, and temperature 98.1. HEENT: Head is normocephalic. Eyes; pupils normal. Conjunctivae normal. Nose and throat; normal. NECK: JVP low. Carotids equal. THORAX: AP diameter normal. LUNGS: No significant rales. CARDIOVASCULAR: S1 and S2. ABDOMEN: Soft, nontender. No organomegaly. Bowel sounds normal. EXTREMITIES: No clubbing. No cyanosis. LABORATORY DATA: The patient's labs are done on 05/06/2018, they were reported in previous notes. DIAGNOSES: Exacerbation of chronic obstructive pulmonary disease, deconditioning, status post pacemaker insertion, cardiac cath on 06/17/2017, normal coronaries, mild pulmonary hypertension, status post pacemaker insertion. On last interrogation, pacemaker still has 1-1/2 years life. PLAN: Continue spironolactone 25 daily, DuoNeb hand-nebulizer therapy, aspirin 81 daily, furosemide 40 daily, atorvastatin 10 daily, Mobic 15 mg daily, prednisone 5 mg daily, Protonix 40 daily, Xanax 0.25 t.i.d. We will follow. Jefferson Solomon MD
[2018-05-11] MEDS: Pantoprazole 40 mg EC Tab PO SCH (05:54)
[2018-05-11] MEDS: Enoxaparin 40 mg Syringe SC SCH (05:54)
--- NOTE | 2018-05-11 06:45 | CP.PCM.DIS ---
Provider - Provider Date of Admission: 05/01/18 18:17 Attending physician: Gregory Estrada MD Consults: 05/01/18 21:55 Inpatient PROSTHETIST Core Measures Referral Routine Comment: COPD Physician Instructions: Reason For Exam: EVALUATION Social Work Referral Routine Comment: NEEDS ASSISTANCE AT HOME Physician Instructions: Reason For Exam: EVALUATION Transition In Care/Readmission Reduction Routine Comment: Physician Instructions: Reason For Exam: EVALUATION 05/02/18 08:00 Physician Consult Routine Comment: Consulting Provider: Jefferson Levine Consulting Physician: Jefferson Levine Reason for Consult: cp Physician Consult Routine Comment: Consulting Provider: Herrera Rick Consulting Physician: Herrera Rick Reason for Consult: r hip pain Physician Consult Routine Comment: Consulting Provider: Jefferson Simmons Consulting Physician: Jefferson Simmons Reason for Consult: copd 05/05/18 19:27 Physician Consult Routine Comment: pain to right lower back Consulting Provider: Andre Cunha Consulting Physician: Andre Cunha Reason for Consult: pain to right lower back 05/07/18 09:28 Physician Consult Routine Comment: Consulting Provider: Anatoliy Vidal Consulting Physician: Anatoliy Vidal Reason for Consult: pain management 05/08/18 10:28 VNA [Case Management Referral] Routine Comment: Physician Instructions: Reason For Exam: SN for initial home health eval for med and dis mg Reason for Referral: VNA Eval 05/08/18 12:39 Physician Consult Routine Comment: Consulting Provider: Billy Chahal Consulting Physician: Billy Chahal Reason for Consult: ACUTE L1 fracture Hospital Course - Lab Results Lab Results: Most Recent Lab Values WBC 11.2 10^3/uL (4.5-11.0) H 05/06/18 06:00 RBC 4.60 10^6/uL (3.5-6.1) 05/06/18 06:00 Hgb 14.3 g/dL (12.0-16.0) 05/06/18 06:00 Hct 42.7 % (36.0-48.0) 05/06/18 06:00 MCV 92.8 fl (80.0-105.0) 05/06/18 06:00 MCH 31.1 pg (25.0-35.0) 05/06/18 06:00 MCHC 33.5 g/dl (31.0-37.0) 05/06/18 06:00 RDW 14.5 % (11.5-14.5) 05/06/18 06:00 Plt Count 229 10^3/uL (120.0-450.0) 05/06/18 06:00 MPV 10.1 fl (7.0-11.0) 05/06/18 06:00 Gran % 71.3 % (50.0-68.0) H 05/06/18 06:00 Lymph % (Auto) 19.0 % (22.0-35.0) L 05/06/18 06:00 [place] % (Auto) 8.8 % (1.0-6.0) H 05/06/18 06:00 Eos % (Auto) 0.8 % (1.5-5.0) L 05/06/18 06:00 Baso % (Auto) 0.1 % (0.0-3.0) 05/06/18 06:00 Gran # 8.01 (1.4-6.5) H 05/06/18 06:00 Lymph # (Auto) 2.1 (1.2-3.4) 05/06/18 06:00 [place] # (Auto) 1.0 (0.1-0.6) H 05/06/18 06:00 Eos # (Auto) 0.1 (0.0-0.7) 05/06/18 06:00 Baso # (Auto) 0.01 K/mm3 (0.0-2.0) 05/06/18 06:00 Sodium 130 mmol/L (132-148) L 05/06/18 06:00 Potassium 4.5 mmol/L (3.6-5.0) 05/06/18 06:00 Chloride 87 mmol/L (98-107) L 05/06/18 06:00 Carbon Dioxide 37 mmol/L (21-33) H 05/06/18 06:00 Anion Gap 10 (10-20) 05/06/18 06:00 BUN 42 mg/dL (7-21) H 05/06/18 06:00 Creatinine 0.9 mg/dl (0.7-1.2) 05/06/18 06:00 Est GFR ( Amer) > 60 05/06/18 06:00 Est GFR (Non-Af Amer) > 60 05/06/18 06:00 POC Glucose (mg/dL) 138 mg/dL (65-110) H 05/09/18 05:06 Random Glucose 146 mg/dL (70-110) H 05/06/18 06:00 Calcium 9.8 mg/dL (8.4-10.5) 05/06/18 06:00 Phosphorus 2.7 mg/dL (2.5-4.5) 05/06/18 06:00 Magnesium 1.9 mg/dL (1.7-2.2) 05/06/18 06:00 Total Bilirubin 0.9 mg/dL (0.2-1.3) 05/03/18 07:00 AST 45 U/L (14-36) H D 05/03/18 07:00 ALT 51 U/L (7-56) 05/03/18 07:00 Alkaline Phosphatase 123 U/L (38-126) 05/03/18 07:00 Total Protein 6.8 g/dL (5.8-8.3) 05/03/18 07:00 Albumin 3.9 g/dL (3.0-4.8) 05/03/18 07:00 Globulin 2.8 gm/dL 05/03/18 07:00 Albumin/Globulin Ratio 1.4 (1.1-1.8) 05/03/18 07:00 Discharge Plan - Follow Up Plan Condition: GOOD Disposition: HOME/ ROUTINE Instructions: Vertebral Compression Fracture, Heart Failure, Adult, Low Back Pain (DC), Exacerbation of COPD
[2018-05-11] MEDS: Levothyroxine 100 MCG TAB PO SCH (07:00)
[2018-05-11] MEDS: Budesonide 0.5 mg/2 ml Inhal Susp UD IH SCH (07:05)
[2018-05-11] MEDS: Arformoterol 15 mcg/2 ml Inh Sol IH SCH (07:05)
--- NOTE | 2018-05-11 09:16 | PN ---
DATE: 05/08/2018 SUBJECTIVE: The patient is a 77-year-old female. The patient was seen and examined at bedside on 05/08/2018, looking comfortable, sitting on the chair, complaining about abdominal discomfort. No fever, no chills. No hematuria or hematochezia. No headache or dizziness. No chest pain or palpitation. PHYSICAL EXAMINATION: VITAL SIGNS: Blood pressure 105/65, pulse 99, temperature 98.1, and oxygenation 92%. HEENT: Head: Normocephalic and atraumatic. Eyes: PERRLA. Extraocular muscles intact. Conjunctivae clear. Nose is patent. Mucous membrane moist. NECK: Supple. No carotid bruits. No JVD or thyromegaly. CHEST: Bilaterally symmetrical. HEART: S1 and S2 positive. LUNGS: Clear to auscultation. ABDOMEN: Soft. Positive organomegaly. EXTREMITIES: No edema. No cyanosis. NEUROLOGIC: The patient is awake and alert, moving all four extremities. No focal deficits. LABORATORY DATA: We do no have recent labs today, but I reviewed old labs. MEDICATIONS: Tylenol, DuoNeb, Xanax, Brovana, Lipitor, Tessalon Perles, Pulmicort, calcitonin/salmon, vitamin D, Lovenox, Lasix, Robitussin, Synthroid, Lidoderm patch, Mobic, Zofran, Percocet, Protonix, MiraLax, Tylenol tapering doses, spironolactone, and Zanaflex. ASSESSMENT AND PLAN: The patient is a 77-year-old lady with hypercholesterolemia, vitamin D deficiency, hypothyroidism, has chronic obstructive lung disease, congestive heart failure, anxiety disorder, coronary artery disease, depression, L1 compression fracture, getting tapering dose of prednisone from 10 to 5. Continue inhaled bronchodilators. to the Maalox. Gastrointestinal and deep venous thrombosis prophylaxes. As per the patient's request, primary care physician is changed. Now starting from 05/09/2018, will take care of the patient. Guillermina Kam MD
--- NOTE | 2018-05-11 10:03 | DS ---
HISTORY OF PRESENT ILLNESS: The patient is a 77-year-old female who has come to the hospital because she had back pain. She had an acute fracture. She was seen by Orthopedics. She was transferred to Transitional Care Unit for rehab. She was given options about surgical intervention versus conservative management by Orthopedics and by Interventional Radiology and she has not made a decision. She says her pain is better. She has no complaints of any headaches or dizziness. No nausea. No vomiting. PHYSICAL EXAMINATION: VITAL SIGNS: Temperature is 97.7, pulse is 75, blood pressure 120/58, respirations 16, O2 saturation 100%. GENERAL: The patient is lying in bed, flat, comfortable. HEENT: No oral lesion. Anicteric sclerae. Moist mucosa. NECK: No JVD, adenopathy, or thyromegaly. CARDIOVASCULAR: S1 and S2, regular. No murmurs, rubs, or gallops. LUNGS: Clear to auscultation bilaterally. No wheeze, rales, or rhonchi. ABDOMEN: Bowel sounds are positive, soft, nontender and nondistended. EXTREMITIES: No cyanosis, clubbing or edema. ASSESSMENT: 1. L1 vertebral fracture. 2. Chronic obstructive pulmonary disease. 3. Coronary artery disease. 4. Hypothyroidism. 5. Anxiety. 6. Constipation. 7. Osteoporosis. PLAN: The patient is currently on Aldactone, she is going to continue. She is on Brovana for breathing. The patient on Lasix for her edema. The patient is on Lipitor for dyslipidemia. The patient is receiving Protonix daily. She is on Synthroid for hypothyroidism. She is on Xanax. CONDITION: Stable. ACTIVITIES: Increase as tolerated. The patient has not decided about surgical intervention. So, continue with conservative management for now until she changes her mind. She will follow up and see me in 1-2 weeks. Gregory Estrada MD
[2018-05-11] MEDS: Lidocaine 5% Patch TD SCH (10:51)
[2018-05-11] MEDS: Calcitonin 200 Int Units/Inh Nasal Spray (3.7 ml) NS SCH (10:52)
[2018-05-11] MEDS: Nystatin-Triamcinolone Ointment(30 gm) TOP SCH (10:53)
[2018-05-11] MEDS: POLYETHYLENE GLYCOL 3350 17 GM/Dose PACKET PO SCH (10:53)
[2018-05-11] MEDS: Cholecalciferol 1,000 INTLU TAB PO SCH (11:00)
[2018-05-11] MEDS ORDERED: Sodium Chloride 0.45% 1,000 ML IV SCH (11:00)
[2018-05-11 11:53] VITALS: BP 130/77
--- NOTE | 2018-05-11 12:55 | PN ---
DATE: 05/11/2018 SUBJECTIVE: The patient is sitting in an armchair. Daughter is at bedside. No acute distress. The patient reports that she was scheduled to be discharged, but she has decided to go forward with surgical intervention for vertebral fracture. No coughing, shortness of breath, chest pain, abdominal pain, nausea, vomiting, diarrhea, leg pain, or leg swelling reported. Reports slight improvement in back pain at this time. PHYSICAL EXAMINATION GENERAL: No acute distress. VITAL SIGNS: Blood pressure 130/77, pulse 75, temperature 97.7, oxygen saturation 100. HEENT: Moist mucous membranes. Crowded airway. NECK: Supple. No JVD. LUNGS: A few scattered rhonchi bilaterally. CARDIOVASCULAR: S1, S2 audible. ABDOMEN: Soft, nontender. No distention. No organomegaly. EXTREMITIES: Bilateral lower extremity edema. NEUROLOGIC: Awake, alert, verbal. Follows commands. LABORATORY DATA: Reviewed. No new labs since yesterday. MEDICATIONS: Reviewed. Tylenol 650 every 6 hours as needed, Maalox 30 mL every 6 hours as needed, DuoNeb 3 mL solution every 4 hours as needed, Xanax 0.25 mg three times a day, Brovana 15 mcg every 12 hours, aspirin 81 mg daily, Lipitor 10 mg at dinner, Tessalon Perles 100 mg three times a day, Pulmicort 1 mg every 12 hours, calcitonin 200 nasal spray daily, vitamin D 1000 units daily, Lovenox 40 mg subcutaneously daily, Prozac 10 mg daily, Lasix 40 mg daily, Robitussin 100 mg every 4 hours as needed, Synthroid 100 mcg daily, Lidoderm patch topically to the affected area, Mobic 15 mg daily, nystatin-triamcinolone ointment topically twice a day, Zofran 4 mg IV push every 6 hours as needed, Percocet 10/325 mg 1 tab every 6 hours as needed for severe pain, Protonix 40 mg daily, Miralax 17 g daily, prednisone 5 mg daily, Lyrica 25 mg at bedtime, sodium chloride 0.45% 1000 mL at 50 mL per hour, Aldactone 25 mg daily, Zanaflex 2 mg at bedtime. IMPRESSION AND PLAN: Chronic obstructive lung disease, congestive heart failure, hypothyroidism, anxiety disorder, coronary artery disease, depression, L1 compression fracture. We do suspect sleep apnea in this patient and recommend the patient to have a sleep study as outpatient. The patient will need full pulmonary function tests as outpatient. Close cardiopulmonary monitoring while sedated. Pending vertebroplasty. Continue inhaled bronchodilators, gastric prophylaxis, deep venous thrombosis prophylaxis. Will discontinue prednisone. This patient was seen and examined with Dr. Simmons. Discussed assessment and plan as described above. Thank you for this consult. We will follow with you. Dileep Og APN Jefferson Simmons MD [facility]
--- NOTE | 2018-05-11 14:26 | PN ---
DATE: 05/11/2018 LOCATION: The patient is in room 313, bed 2. REASON FOR CONSULTATION AND FOLLOWUP: Shortness of breath, COPD, history of pacemaker insertion, back pain, hip pain, deconditioning, and hypertension. SUBJECTIVE: The patient is sitting in chair, still complaining back pain, breathing off and on, gets shortness of breath. Denies palpitation; denies chest pain. Also, complained of hip pain. Few days back, she has vague abdominal discomfort which has improved now. PHYSICAL EXAMINATION: VITAL SIGNS: Blood pressure 130/77, respirations 16, pulse 75, and temperature 97.7. HEENT: Head; normocephalic. Eyes; pupil normal. Conjunctivae normal. NECK: JVP low. Carotids equal. THORAX: AP diameter normal. LUNGS: No significant rales. CARDIOVASCULAR: S1 and S2. ABDOMEN: Soft. No tenderness. No organomegaly. EXTREMITIES: No clubbing. No cyanosis. LABORATORY DATA: Labs were done on 05/06/2018 and they were described in our previous notes. DIAGNOSES: Exacerbation of chronic obstructive pulmonary disease; deconditioning, status post pacemaker insertion; cardiac cath on 06/19/2017, normal coronaries; mild pulmonary hypertension, status post pacemaker insertion; on last interrogation, pacemaker still has one and a half years of life; back pain; and hip pain. PLAN: We will continue current therapy. We will continue physical therapy for deconditioning. We will follow with you. Jefferson Solomon MD
--- NOTE | 2018-05-12 20:26 | CON ---
DATE: 05/07/2018 LOCATION OF THE PATIENT: Room 313, bed 2. PRIMARY CARE PHYSICIAN: Guillermina Kam MD REQUESTING PHYSICIAN: Jefferson Levine MD CHIEF COMPLAINT: Right-sided low back pain and right hip pain. HISTORY OF PRESENT ILLNESS: Mrs. Kimball is a pleasant 77-year-old female, who was initially admitted to [facility] through emergency department on 04/29/2018 complaining of chest pain and shortness of breath. The patient has been worked up under the direction of Dr. Levine. The patient was seen and examined in transitional care unit and she is complaining significant right-sided low back pain and right hip pain. She denied any shooting pain to right lower extremity. Her visual analog scale on today's evaluation was 9/10. The patient stated that she has been getting Percocet 5 mg and as per her expression, it is like taking candy, so it has not helped. PAST MEDICAL HISTORY: COPD, congestive heart failure, hypothyroidism, hypercholesterolemia. ALLERGIES: LEVOFLOXACIN. CURRENT MEDICATIONS: Aldactone, Brovana, Ecotrin 81 mg, Lasix 40 mg, Lipitor 10 mg daily, Lovenox 30 mg subcu daily, Miacalcin Nasal [place], MiraLax, Percocet 5 mg 1 tablet every 4 hours, Synthroid 100 mcg daily, Xanax 0.25 every 6 hours. FAMILY HISTORY: Noncontributory. SOCIAL HISTORY: The patient denies any alcohol or tobacco use. REVIEW OF SYSTEMS: The patient denied any chest pain, shortness breath. She denied any cough or wheezing. She denies nausea, vomiting, diarrhea. She denies any bowel or bladder dysfunction. PHYSICAL EXAMINATION GENERAL: The patient is mildly obese, in mild distress secondary to low back pain. VITAL SIGNS: She is afebrile. Vital signs stable. HEENT: Head is normocephalic, atraumatic. Pupils equal, round and reactive to light. Extraocular muscle movement intact. NECK: No thyromegaly, no adenopathy, no jugular venous distention. LUNGS: Clear to auscultation. HEART: Regular rate and rhythm. ABDOMEN: Soft, obese, nontender, nondistended. NEUROMUSCULAR: She is alert, awake, and oriented x3. She concentrates very well. Cranial nerves II-XII are grossly intact. Coordination is grossly intact, but walking with a walker and limp secondary to pain. There is tenderness over spinous process of lumbar spine, especially L1 and L2 area. There is tenderness over right lumbar paraspinal and right SI joint. RADIOLOGIC STUDIES: Thoracic spine CT scan without contrast showed an acute compression fracture L1. CT scan of lumbar spine without contrast showed severe acute compression fracture L1 and L1 vertebral body is compressed to height of 10 mm centrally. IMPRESSION: Severe low back pain secondary to severe acute L1 compression fracture with sacroiliitis. RECOMMENDATIONS: 1. The patient to continue with physical therapy as per transitional care unit. 2. We will increase Percocet to 10 mg every 6 hours as needed. We will add Zanaflex 2 mg tablet at bedtime. 3. We will follow up on the patient. If she is still in significant amount of pain, she might benefit from lumbar epidural steroid injection as she is high risk for kyphoplasty at this point. Anatoliy Vidal MD cc: MD Jefferson Reyes MD Mitchell Brown, JD/ covering for Dr. Kam.
== END 2018-05-11 14:14 | disposition short-term general hospital (02) | DRG 543 ==
LOC: TRCU 18:17
PROVIDERS: ADMIT Internal Medicine; ATTEND Internal Medicine Nephrology
PROC: F07Z9FZ Gait Training/Functional Ambulation Treatment using Assistive, Adaptive, Supportive or Protective Equipment (ICD-10-PCS; principal; 2018-05-02)
PROC: F07M6ZZ Therapeutic Exercise Treatment of Musculoskeletal System - Whole Body (ICD-10-PCS; 2018-05-02)
PROC: F08Z2ZZ Grooming/Personal Hygiene Treatment (ICD-10-PCS; 2018-05-02)
PROC: F08Z1ZZ Dressing Techniques Treatment (ICD-10-PCS; 2018-05-02)
PROC: F08Z0ZZ Bathing/Showering Techniques Treatment (ICD-10-PCS; 2018-05-02)
DX: M48.56XA Collapsed vertebra, not elsewhere classified, lumbar region, initial encounter for fracture (principal); I50.32 Chronic diastolic (congestive) heart failure; J44.1 Chronic obstructive pulmonary disease with (acute) exacerbation; M81.0 Age-related osteoporosis without current pathological fracture; E03.9 Hypothyroidism, unspecified; E78.00 Pure hypercholesterolemia, unspecified; I25.10 Atherosclerotic heart disease of native coronary artery without angina pectoris; I27.20 Pulmonary hypertension, unspecified; I11.0 Hypertensive heart disease with heart failure; I48.0 Paroxysmal atrial fibrillation; G89.4 Chronic pain syndrome; E55.9 Vitamin D deficiency, unspecified; E78.5 Hyperlipidemia, unspecified; F32.89 Other specified depressive episodes; F41.9 Anxiety disorder, unspecified; E11.9 Type 2 diabetes mellitus without complications; K59.03 Drug induced constipation; T40.605A Adverse effect of unspecified narcotics, initial encounter; Z87.891 Personal history of nicotine dependence; Z95.0 Presence of cardiac pacemaker; Z99.81 Dependence on supplemental oxygen

== ENCOUNTER 2018-05-11 13:39 | Inpatient (IN) | payer MEDICARE, OTHER ==
[2018-05-11] MEDS ORDERED: Iodixanol 320 MG/ML 100 ML BOTTLE IV ONE (14:07)
[2018-05-11] MEDS ORDERED: Lidocaine 2% Inj (20ml) ONE (14:07)
[2018-05-11 14:35] LABS: INR 0.91; PARTIAL THROMBOPLASTIN TIME 33.6 Seconds (25.1-36.5); PROTHROMBIN TIME 10.4 SECONDS (9.4-12.5)
[2018-05-11] MEDS ORDERED: Midazolam 2 MG/2 ML VIAL ONE ×2 (15:33→15:48)
[2018-05-11] MEDS ORDERED: Fluticasone-Salmeterol 500-50mcg Diskus IH SCH (16:45)
[2018-05-11] MEDS ORDERED: Sodium Chloride 0.45% 1,000 ML IV SCH (16:45)
[2018-05-11] MEDS: Oxycodone/Acetaminophen 10/325 mg Tab PO PRN (18:12)
--- NOTE | 2018-05-11 18:28 | VASCULAR ---
PROCEDURE: 1. L1 kyphoplasty. 2. L1 vertebral body biopsy. HISTORY: Severe, refractory back pain. Unresponsive to bed rest and analgesics. Acute L1 compression fracture on MRI. PHYSICIAN(S): Valentin Mai MD. TECHNIQUE: he relative risks and indications of the procedure were explained to the patient and informed written consent obtained. The patient was placed prone on the arteriography table and the thoracolumbar spine prepped and draped in the usual sterile fashion. Conscious sedation and monitoring were provided throughout the procedure by a nurse. The L1 vertebral body was carefully localized with fluoroscopy. The skin and soft tissues were anesthetized with 1% Xylocaine. Under direct fluoroscopic guidance, bilateral transpedicular bone needles were placed into the posterior aspect of the L1 vertebral body. Through the right needle, a biopsy of the [id number] body was performed. The specimen was sent to histology. Next bilateral 15mm bone balloons were placed in the superior and anterior portion of the L1 vertebral body. They were inflated to approximately 3 cc apiece with dilute contrast. The balloons were removed and 6.0 cc of barium-impregnated PMMA cement instilled into the L1 vertebral body. No extravasation was seen. The bone needles were removed. The patient tolerated the procedure well. IMPRESSION: 1. Fluoroscopically-guided L1 kyphoplasty. 2. Fluoroscopic L1 vertebral body biopsy.
[2018-05-11] MEDS: Arformoterol 15 mcg/2 ml Inh Sol IH SCH (19:48)
[2018-05-11] MEDS: Budesonide 0.5 mg/2 ml Inhal Susp UD IH SCH (19:48)
--- NOTE | 2018-05-12 06:22 | CP.PCM.HP ---
Past Patient History - Infectious Disease Hx of Infectious Diseases: None - Tetanus Immunizations Tetanus Immunization: Unknown - Past Medical History & Family History Past Medical History?: Yes - Past Social History Smoking Status: Never Smoked - CARDIAC Hx Cardiac Disorders: Yes Hx Cardia Arrhythmia: Yes (afib) Hx Circulatory Problems: Yes Hx Congestive Heart Failure: Yes Hx Hypercholesterolemia: Yes Hx Hypertension: Yes Hx Pacemaker: Yes Hx Peripheral Edema: Yes Hx Peripheral Vascular Disease: Yes - PULMONARY Hx Respiratory Disorders: Yes Hx Bronchitis: Yes Hx Chronic Obstructive Pulmonary Disease (COPD): Yes Hx Emphysema: Yes Hx Pneumonia: Yes Hx Respiratory Tract Infection: Yes Hx Sleep Apnea: Yes - NEUROLOGICAL Hx Neurological Disorder: Yes Hx Dizziness: Yes Hx Migraine: Yes - HEENT Hx HEENT Problems: Yes ([place]) Hx Cataracts: Yes (PAST SX) Hx Deafness: Yes - RENAL Hx Chronic Kidney Disease: No - ENDOCRINE/METABOLIC Hx Endocrine Disorders: Yes Hx Hypothyroidism: Yes - HEMATOLOGICAL/ONCOLOGICAL Hx Blood Disorders: No - INTEGUMENTARY Hx Dermatological Problems: Yes Other/Comment: Hx of bilateral LE cellulitis - MUSCULOSKELETAL/RHEUMATOLOGICAL Hx Musculoskeletal Disorders: Yes Hx Arthritis: Yes Hx Back Pain: Yes Hx Degenerative Joint Disease: Yes Hx Falls: Yes Hx Fractures: Yes (compression fx L1 w/ kyphoplasty 05/11/18) Hx Gout: Yes Hx Unsteady Gait: Yes - GASTROINTESTINAL Hx Gastrointestinal Disorders: Yes (COLON POLYPS,CONSTIPATION,GERD,DEIVERTICULITIS,) Hx Gall Bladder Disease: Yes Hx Gastroesophageal Reflux: Yes Hx Pancreatitis: Yes Other/Comment: constipation - GENITOURINARY/GYNECOLOGICAL Hx Genitourinary Disorders: Yes Hx Incontinence: Yes - PSYCHIATRIC Hx Psychophysiologic Disorder: Yes Hx Anxiety: Yes Hx Bipolar Disorder: No Hx Depression: Yes Hx Emotional Abuse: No Hx Physical Abuse: No - SURGICAL HISTORY Hx Surgeries: Yes Hx Cardiac Catheterization: Yes Hx Cholecystectomy: Yes Hx Orthopedic Surgery: Yes (r knee) Other/Comment: carpal tunnel right hand, colonoscopies, left neck tumor, pacemaker 1999, generator change 2007, cardiac ablation, b/l cataract sx, t&a, kyphoplasty to L1 2019 - ANESTHESIA Hx Anesthesia Reactions: No Hx Malignant Hyperthermia: No Meds Allergies/Adverse Reactions: Allergies Allergy/AdvReac Type Severity Reaction Status Date / Time levofloxacin [From Levaquin] Allergy Severe ANAPHYLAXIS Verified 11/14/17 14:27 ceftriaxone [From Rocephin] Allergy RASH Verified 05/11/18 14:47 Results - Vital Signs Recent Vital Signs: Last Vital Signs Temp 98.4 F 05/11/18 17:31 Pulse 75 05/11/18 17:31 Resp 18 05/11/18 18:20 BP 137/72 05/11/18 17:31 Pulse Ox 99 05/11/18 17:31 - Labs Labs: Laboratory Results - last 24 hr 05/11/18 14:20 PT 10.4 INR 0.91 APTT 33.6
[2018-05-12] MEDS: Oxycodone/Acetaminophen 10/325 mg Tab PO PRN (07:48)
[2018-05-12] MEDS: Arformoterol 15 mcg/2 ml Inh Sol IH SCH ×2 (08:07→19:50)
[2018-05-12] MEDS: Budesonide 0.5 mg/2 ml Inhal Susp UD IH SCH ×2 (08:08→19:50)
[2018-05-12] MEDS: Cholecalciferol 1,000 INTLU TAB PO SCH (09:13)
[2018-05-12] MEDS: Non Formulary Medication (Tiotropium Bromide [Spiriva Respimat] 2.5 MCG) IH SCH (09:13)
[2018-05-12] MEDS: Levothyroxine 100 MCG TAB PO SCH (09:13)
[2018-05-12 09:17] LABS: BASO # 0.02 K/mm3 (0.0-2.0); BASO % 0.2 % (0.0-3.0); EOS # 0.1 (0.0-0.7); GRAN # 7.16 (1.4-6.5); GRAN % 68.2 % (50.0-68.0); HEMOGLOBIN 12.9 g/dL (12.0-16.0); LYMPH % 18.6 % (22.0-35.0); MEAN CELL VOLUME 95.6 fl (80.0-105.0); MEAN CORPUSCULAR HEMOGLOBIN 31.5 pg (25.0-35.0); MEAN CORPUSCULAR HGB CONC 32.9 g/dl (31.0-37.0); MEAN PLATELET VOLUME 9.2 fl (7.0-11.0); MONO # 1.3 (0.1-0.6); RBC 4.1 10^6/uL (3.5-6.1); RED CELL DISTRIBUTION WIDTH 15.5 % (11.5-14.5); WHITE BLOOD COUNT 10.5 10^3/uL (4.5-11.0)
[2018-05-12 10:35] LABS: ALB/GLOB RATIO 1.3 (1.1-1.8); ALBUMIN 3.6 g/dL (3.0-4.8); ALT/SGPT 66 U/L (7-56); AST/SGOT 31 U/L (14-36); BLOOD UREA NITROGEN 17 mg/dL (7-21); CALCIUM 9.9 mg/dL (8.4-10.5); GFR NON-AFRICAN AMERICAN > 60
--- NOTE | 2018-05-12 14:01 | CON ---
DATE: 05/12/2018 PULMONARY CONSULTATION NOTE REFERRING PHYSICIAN: Dr. Mai. REASON FOR CONSULT: COPD, suspected sleep apnea syndrome. HISTORY OF PRESENT ILLNESS: This is a 77-year-old female known to us from prior admissions. Patient was recently on TICU for rehabilitation, was found to have L1 compression fracture. Yesterday, patient had L1 kyphoplasty and L1 vertebral body biopsy done. Today, she reports feeling well. No pain at this time. Denies cough, denies shortness of breath, no headache, rhinitis, chest pain, abdominal pain, nausea, vomiting, diarrhea or leg pain reported. PAST MEDICAL HISTORY: Chronic lung disease, heart failure, oxygen dependent, hypothyroidism, history of lower extremity cellulitis, pancreatitis, anxiety disorder, depression, history of cardiac arrhythmia requiring pacemaker, coronary artery disease, FAMILY HISTORY: No significant cardiopulmonary disease reported. SOCIAL HISTORY: Former smoker. Denies any alcohol or any illicit drug use. ALLERGIES: LEVOFLAXACIN, CEFTRIAXONE. REVIEW OF SYSTEMS: No headache, rhinitis, chest pain, abdominal pain, nausea, vomiting, diarrhea, leg pain, leg swelling reported. Patient does report getting short of breath with exertion. Patient reports that back pain is improved this morning. MEDICATIONS: Reviewed. Xanax 0.25 mg 3 times a day p.r.n., Brovana 15 mcg every 12 hours, aspirin 81 mg daily, Lipitor 10 mg at dinner, Tessalon Perles 100 mg 3 times a day, Pulmicort 1 mg every 12 hours, vitamin D at 1000 units daily, Pepcid 40 mg at bedtime, Prozac 10 mg daily, Lasix 40 mg daily, Synthroid 100 mcg daily, Spiriva 2.5 mcg daily, Zofran 4 mg IV push every 6 hours p.r.n., Percocet 10/325 mg one tab every 6 hours p.r.n., Lyrica 25 mg at bedtime. PHYSICAL EXAMINATION GENERAL: No acute distress. VITAL SIGNS: Blood pressure 128/72, pulse 93, temperature 97.3 and oxygen 97%. HEENT: Moist mucous membranes. Crowded airway. Mallampati score is 4. NECK: Supple. No JVD. LUNGS: Prolonged expiratory phase. Few scattered rhonchi. CARDIOVASCULAR: S1, S2 audible. ABDOMEN: Soft and nontender. No distension. No organomegaly. EXTREMITIES: Trace bilateral lower extremity edema. NEUROLOGIC: Awake, alert, verbal and follow simple commands. LABORATORY DATA: Reviewed. WBC 10.5, RBC 4.1, hemoglobin 12.9, hematocrit 39.2, platelets 249. Sodium 135, potassium 4.6, chloride 100, carbon dioxide 30, anion gap 10, BUN 17, creatinine 0.7, GFR greater than 60, random glucose 116, calcium 9.9, phosphorous 2.1, magnesium 1.8, total bilirubin 0.7, AST 31, ALT 36, alkaline phosphatase 165, total protein 6.4, albumin 3.6, globulin 2.8, albumin-globulin ratio 1.3. IMPRESSION AND PLAN: L1 kyphoplasty, L1 vertebral body biopsy done due to patient having acute L1 compression fracture, chronic obstructive pulmonary disease, congestive heart failure, hypothyroidism, anxiety disorder, depression, coronary artery disease, obstructive sleep apnea syndrome. Continue inhaled bronchodilators. Fall precaution. Avoid sedation. Recommend patient have sleep study and full PFT as an outpatient. This patient was seen and examined with Dr. Simmons. Discussed assessment and plan as described above. Thank you for this consult. We will follow with you. Dileep Og APN Jefferson Simmons MD
--- NOTE | 2018-05-12 15:56 | CP.PCM.APN ---
Subjective - Date & Time of Evaluation Date of Evaluation: 05/12/18 Time of Evaluation: 10:00 - Subjective Subjective: Pt. seen and examined, sitting up in chair, states having mild pain to lower back, is s/p day 1 kyphoplasty, denied shortness of breath, does admit to dyspnea with walking. Review of Systems - Constitutional Constitutional: As Per HPI. absent: Anorexia, Chills, Daytime Sleepiness, Excessive Sweating, Fatigue, Fever, Frequent Falls, Headache, Increased Appetite, Lethargy, Malaise, Night Sweats, Snoring, Sleep Apnea, Weight Gain, Weight Loss, Weakness, Other - EENT Eyes: As Per HPI. absent: Blind Spots, Blurred Vision, Change in Vision, Decreased Night Vision, Diplopia, Discharge, Dry Eye, Exophthalmos, Floaters, Irritation, Itchy Eyes, Loss of Peripheral Vision, Pain, Photophobia, Requires Corrective Lenses, Sees Flashes, Spots in Vision, Tunnel Vision, Other Visual Disturbances, Loss of Vision, Other Nose/Mouth/Throat: absent: As Per HPI, Epistaxis, Nasal Congestion, Nasal Discharge, Nasal Obstruction, Nasal Trauma, Nose Pain, Post Nasal Drip, Sinus Pain, Sinus Pressure, Bleeding Gums, Change in Voice, Dental Pain, Dry Mouth, Dysphagia, Halitosis, Hoarsness, Lip Swelling, Mouth Lesions, Mouth Pain, Odynophagia, Sore Throat, Throat Swelling, Tongue Swelling, Facial Pain, Neck Pain, Neck Mass, Other - Cardiovascular Cardiovascular: Dyspnea on Exertion, Leg Edema - Gastrointestinal Gastrointestinal: absent: As Per HPI, Abdominal Pain, Belching, Bloating, Change in Bowel Habits, Change in Stool Character, Coffee Ground Emesis, Constipation, Cramping, Diarrhea, Dyspepsia, Dysphagia, Early Satiety, Excessive Flatus, Fecal Incontinence, Heartburn, Hematemesis, Hematochezia, Loose Stools, Melena, Nausea, Odynophagia, Temesmus, Vomiting, Other - Genitourinary Genitourinary: absent: As Per HPI, Change in Urinary Stream, Difficulty Urinating, Dysuria, Flank Pain, Hematuria, Pyuria, Nocturia, Urinary Incontinence, Urinary Frequency, Urinary Hesitance, Urinary Urgency, Voiding Freq/Small Amts, Freq UTI, Hx Renal/Bladder Calculi, Hx /Renal Surgery, Bladder Distension, Other - Musculoskeletal Musculoskeletal: Back Pain - Integumentary Integumentary: Dry Skin, Erythema, Swelling Additional comments: swelling, erthema noted to lower leg b/l - Neurological Neurological: Frequent Falls - Endocrine Endocrine: absent: As Per HPI, Change in Body Appearance, Change in Libido, Cold Intolorance, Deepening of Voice, Excessive Sweating, Fatigue, Flushing, Heat Intolorance, Increase in Ring/Shoe/Hat Size, Palpitations, Polydipsia, Polyphagia, Polyuria, Other Objective - Vital Signs/Intake and Output Vital Signs (last 24 hours): Temp Pulse Resp BP Pulse Ox 97.3 F L 93 H 20 137/82 97 05/12/18 08:07 05/12/18 08:07 05/12/18 08:07 05/12/18 09:13 05/12/18 08:07 Intake and Output: 05/12/18 05/12/18 06:59 18:59 Intake Total 420 Output Total 800 Balance -380 - Medications Medications: Current Medications Alprazolam (Xanax) 0.25 mg PO TID PRN; Protocol PRN Reason: Anxiety Stop: 05/18/18 16:37 Last Admin: 05/11/18 22:54 Dose: 0.25 mg Arformoterol Tartrate (Brovana) 15 mcg IH [id number] [facility] Last Admin: 05/12/18 08:07 Dose: 15 mcg Aspirin (Ecotrin) 81 mg PO DAILY [facility] Last Admin: 05/12/18 09:13 Dose: 81 mg Atorvastatin Calcium (Lipitor) 10 mg PO DIN [facility] Last Admin: 05/11/18 18:12 Dose: 10 mg Benzonatate (Tessalon Perles) 100 mg PO TID [facility] Last Admin: 05/12/18 14:17 Dose: Not Given Budesonide (Pulmicort Respules) 1 mg IH [id number] [facility] Last Admin: 05/12/18 08:08 Dose: 1 mg Cholecalciferol (Vitamin D) 1,000 intlu PO DAILY [facility] Last Admin: 05/12/18 09:13 Dose: 1,000 intlu Famotidine (Pepcid) 40 mg PO [facility] Fluoxetine HCl (Prozac) 10 mg PO DAILY [facility] Last Admin: 05/12/18 09:13 Dose: 10 mg Furosemide (Lasix) 40 mg PO DAILY [facility] Last Admin: 05/12/18 09:13 Dose: 40 mg Levothyroxine Sodium (Synthroid) 100 mcg PO DAILY [facility] Last Admin: 05/12/18 09:13 Dose: 100 mcg Non-Formulary Medication (Tiotropium Vernalis [Spiriva Respimat]) 2.5 mcg IH DAILY [facility] Last Admin: 05/12/18 09:13 Dose: Not Given Ondansetron HCl (Zofran Inj) 4 mg IVP Q6H PRN PRN Reason: Nausea/Vomiting Oxycodone/Acetaminophen (Percocet 10/325 Mg Tab) 1 tab PO Q6H PRN PRN Reason: Pain, severe (8-10) Last Admin: 05/12/18 07:48 Dose: 1 tab Pregabalin (Lyrica) 25 mg PO HS [facility] Last Admin: 05/11/18 22:43 Dose: 25 mg - Labs Labs: 05/12/18 09:00 05/12/18 09:00 PT 10.4 SECONDS (9.4-12.5) 05/11/18 14:20 INR 0.91 05/11/18 14:20 APTT 33.6 Seconds (25.1-36.5) 05/11/18 14:20 - Constitutional Appears: Well - Head Exam Head Exam: NORMAL INSPECTION - Eye Exam Eye Exam: Normal appearance - ENT Exam ENT Exam: Mucous Membranes Moist, Normal Exam - Neck Exam Neck Exam: Full ROM, Normal Inspection - Cardiovascular Exam Cardiovascular Exam: REGULAR RHYTHM, +S1, +S2 - GI/Abdominal Exam GI & Abdominal Exam: Soft, Normal Bowel Sounds - Rectal Exam Rectal Exam: Deferred - Exam Exam: absent: Circumcision, NORMAL INSPECTION, Scrotal Swelling, Testicular Tenderness, Uretheral Discharge, Testicular Vertical Lie, Bladder Distension External exam: absent: Ecchymosis, Erythema, Lacerations, Lesions, NORMAL EXTERNAL EXAM, Swelling Speculum exam: absent: Cervical Discharge, Erythema, Foreign Body, Laceration, NORMAL SPECULUM EXAM, Tissue, Vaginal Bleeding, Vaginal Discharge Bimanual exam: absent: Adenexal Mass, Adnexal, Cervical Motion Tendernes, NORMAL BIMANUAL EXAM, Uterine Enlargement, Uterine Tenderness - Extremities Exam Extremities Exam: Pedal Edema Additional comments: + 2 b/l edema noted to lower legs - Back Exam Additional comments: dressing noted to lumbar area of back, dry, intact. - Neurological Exam Neurological Exam: Alert, Awake, Oriented x3 - Skin Skin Exam: Dry, Intact, Warm Assessment and Plan - Assessment and Plan (Free Text) Assessment: Assessment/ Plan: 1. s/p Kyphoplasty of L1 Compression fracture. continue pain rx as ordered. Patient medically cleared for Discharge -PT recommends [facility], SW/CM for DC planning to [facility].
[2018-05-13] MEDS: Oxycodone/Acetaminophen 10/325 mg Tab PO PRN ×3 (05:09→23:20)
[2018-05-13] MEDS: Arformoterol 15 mcg/2 ml Inh Sol IH SCH ×2 (08:00→21:00)
[2018-05-13] MEDS: Budesonide 0.5 mg/2 ml Inhal Susp UD IH SCH ×2 (08:00→21:00)
--- NOTE | 2018-05-13 08:39 | CP.PCM.HP ---
<Kemi Pérez - Last Filed: 05/13/18 18:09> History of Present Illness - History of Present Illness History of Present Illness: 77yo female PMHx CAD, COPD, chronic lung disease and O2 dependence, CHF, hypothyroidism, HLD, LE cellulitis, pancreatitis, anxiety disorder and depression has been admitted under Dr. Estrada service s/p kyphoplasty with IR Dr. Mai. Patient was recently admitted to [facility] from the ER on 04/29/18 for chest pain and SOB and was had a negative cardiac workup and discharged to TCU. In TCU patient was being seen by physical therapy as she was noted to have an acute com pression fracture of the lumbosacral spine. As the patient's pain was excruciating and not improving she was seen by orthopedics and given options of surgical intervention vs concervative management by ortho and IR. As her pain did not improve, she was taken for kyphoplasty and vertebral body biopsy and is now POD#2. Patient seen and examined this AM at bedside. She reports to complain of pain in her back although it is improving. She denies other acute complaints of fever, chills, headache, dizziness, chest pain, palpitations, SOB, cough, abd pain, nausea, vomiting, bowel/bladder complaints. Patient is looking forward to be discharged to [facility]. PMHx: as above Meds: pls see chart ALL: levofloxacin, ceftriaxone FamHx: noncontributory SocHx: former tobacco use; denies EtOH/drug use 12 point ROS reviewed and negative unless aforementioned above Present on Admission - Present on Admission Any Indicators Present on Admission: No Review of Systems - Review of Systems All systems: reviewed and no additional remarkable complaints except Review of Systems: as per HPI Past Patient History - Infectious Disease Hx of Infectious Diseases: None - Tetanus Immunizations Tetanus Immunization: Unknown - Past Medical History & Family History Past Medical History?: Yes - Past Social History Smoking Status: Never Smoked - CARDIAC Hx Cardiac Disorders: Yes Hx Congestive Heart Failure: Yes Hx Hypercholesterolemia: Yes Hx Hypertension: Yes - PULMONARY Hx Chronic Obstructive Pulmonary Disease (COPD): Yes - NEUROLOGICAL Hx Neurological Disorder: Yes Hx Dizziness: Yes Hx Migraine: Yes - HEENT Hx HEENT Problems: Yes ([place]) Hx Cataracts: Yes (PAST SX) Hx Deafness: Yes - RENAL Hx Chronic Kidney Disease: No - ENDOCRINE/METABOLIC Hx Hypothyroidism: Yes - HEMATOLOGICAL/ONCOLOGICAL Hx Blood Disorders: No - INTEGUMENTARY Hx Dermatological Problems: Yes Other/Comment: Hx of bilateral LE cellulitis - MUSCULOSKELETAL/RHEUMATOLOGICAL Hx Arthritis: Yes - GASTROINTESTINAL Hx Gastrointestinal Disorders: Yes (COLON POLYPS,CONSTIPATION,GERD,DEIVERTICULITIS,) Hx Gall Bladder Disease: Yes Hx Gastroesophageal Reflux: Yes Hx Pancreatitis: Yes Other/Comment: constipation - GENITOURINARY/GYNECOLOGICAL Hx Genitourinary Disorders: Yes Hx Incontinence: Yes - PSYCHIATRIC Hx Psychophysiologic Disorder: Yes Hx Anxiety: Yes Hx Bipolar Disorder: No Hx Depression: Yes Hx Emotional Abuse: No Hx Physical Abuse: No - SURGICAL HISTORY Hx Surgeries: Yes Hx Cardiac Catheterization: Yes Hx Cholecystectomy: Yes Hx Orthopedic Surgery: Yes (r knee) Other/Comment: carpal tunnel right hand, colonoscopies, left neck tumor, pa cemaker 1999, generator change 2007, cardiac ablation, b/l cataract sx, t&a, kyphoplasty to L1 2018 - ANESTHESIA Hx Anesthesia Reactions: No Hx Malignant Hyperthermia: No Meds Allergies/Adverse Reactions: Allergies Allergy/AdvReac Type Severity Reaction Status Date / Time levofloxacin [From Levaquin] Allergy Severe ANAPHYLAXIS Verified 11/14/17 14:27 ceftriaxone [From Rocephin] Allergy RASH Verified 05/11/18 14:47 Physical Exam - Constitutional Appears: Non-toxic, No Acute Distress - Head Exam Head Exam: ATRAUMATIC, NORMAL INSPECTION, NORMOCEPHALIC - Eye Exam Eye Exam: EOMI, Normal appearance. absent: Conjunctival injection, Scleral icterus - ENT Exam ENT Exam: Mucous Membranes Moist - Respiratory Exam Respiratory Exam: Rhonchi (scattered b/l), NORMAL BREATHING PATTERN. absent: Accessory Muscle Use, Rales, Wheezes, Respiratory Distress - Cardiovascular Exam Cardiovascular Exam: +S1, +S2 - GI/Abdominal Exam GI & Abdominal Exam: Normal Bowel Sounds, Soft. absent: Firm, Guarding, Rigid, Tenderness - Extremities Exam Extremities exam: Positive for: pedal edema (b/l LE trace) - Neurological Exam Neurological exam: Alert, Oriented x3 - Psychiatric Exam Psychiatric exam: Normal Affect, Normal Mood - Skin Skin Exam: Dry, Intact Results - Vital Signs Recent Vital Signs: Last Vital Signs Temp 97.7 F 05/13/18 06:00 Pulse 107 H 05/13/18 06:00 Resp 21 05/13/18 06:00 BP 125/72 05/13/18 06:00 Pulse Ox 94 L 05/13/18 06:00 - Labs Result Diagrams: 05/12/18 09:00 05/12/18 09:00 Labs: Laboratory Results - last 24 hr 05/12/18 05/12/18 09:00 09:00 WBC 10.5 RBC 4.10 Hgb 12.9 Hct 39.2 MCV 95.6 MCH 31.5 MCHC 32.9 RDW 15.5 H Plt Count 249 MPV 9.2 Gran % 68.2 H Lymph % (Auto) 18.6 L [place] % (Auto) 12.0 H Eos % (Auto) 1.0 L Baso % (Auto) 0.2 Gran # 7.16 H Lymph # (Auto) 2.0 [place] # (Auto) 1.3 H Eos # (Auto) 0.1 Baso # (Auto) 0.02 Sodium 135 Potassium 4.6 Chloride 100 Carbon Dioxide 30 Anion Gap 10 BUN 17 Creatinine 0.7 Est GFR ( Amer) > 60 Est GFR (Non-Af Amer) > 60 Random Glucose 116 H Calcium 9.9 Phosphorus 3.1 Magnesium 1.8 Total Bilirubin 0.7 AST 31 ALT 66 H Alkaline Phosphatase 165 H D Total Protein 6.4 Albumin 3.6 Globulin 2.8 Albumin/Globulin Ratio 1.3 Assessment & Plan - Assessment and Plan (Free Text) Assessment: 1. acute L1 compression fracture s/p L1 kyphoplasty and L1 vertebral body biopsy 2. COPD 3. CHF 4. Hypothyroidism 5. Anxiety 6. Depression Plan: Patient is POD#2 L1 kyphoplasty and L1 vertebral body biopsy. Pain controlled with current regimen. Patient's labs and vitals have been reviewed. Continue current management for chronic conditions with home medication regimen. Patient working with PT who recommends [facility]. As per case workers patient has been accepted at [facility]. Patient pending discharge to [facility]. Discussed with Dr. Sean Pérez PGY3 <Gregory Estrada - Last Filed: 05/13/18 19:23> Results - Vital Signs Recent Vital Signs: Last Vital Signs Temp 97.8 F 05/13/18 16:27 Pulse 91 H 05/13/18 16:27 Resp 22 05/13/18 16:27 BP 122/70 05/13/18 16:27 Pulse Ox 91 L 05/13/18 16:27 - Labs Result Diagrams: 05/12/18 09:00 05/12/18 09:00 Assessment & Plan - Assessment and Plan (Free Text) Plan: Pt seen and examined by me. I have reviewed the note of the medical collections specialist and I agree with it. I have discussed the assessment and plan with the resident. I have reviewed the medications and the last labs. Pt is s/p L1 kyphoplasty. She states her pain is better. The radiculopathy in the R leg has improved. She is waiting to go to [facility]. She does take Percocet for pain prn. She is eating. Pain is controlled. She has anxiety. Meds have been reviewed.
[2018-05-13] MEDS: Levothyroxine 100 MCG TAB PO SCH (10:36)
[2018-05-13] MEDS: Cholecalciferol 1,000 INTLU TAB PO SCH (10:37)
[2018-05-13] MEDS: Non Formulary Medication (Tiotropium Bromide [Spiriva Respimat] 2.5 MCG) IH SCH (10:41)
--- NOTE | 2018-05-13 11:38 | CP.PCM.PCO ---
Physician Communication Note - Physician Communication Note Physician Communication Note: patient medically cleared for discharge, awaiting THADDEUS
[2018-05-14] MEDS: Oxycodone/Acetaminophen 10/325 mg Tab PO PRN ×2 (06:22→16:21)
[2018-05-14 07:09] LABS: BASO # 0.02 K/mm3 (0.0-2.0); BASO % 0.2 % (0.0-3.0); EOS # 0.1 (0.0-0.7); EOS % 1.1 % (1.5-5.0); GRAN # 7.24 (1.4-6.5); GRAN % 70.5 % (50.0-68.0); HEMOGLOBIN 11.9 g/dL (12.0-16.0); LYMPH # 1.9 (1.2-3.4); LYMPH % 18.4 % (22.0-35.0); MEAN CELL VOLUME 96.1 fl (80.0-105.0); MEAN CORPUSCULAR HGB CONC 32.2 g/dl (31.0-37.0); MEAN PLATELET VOLUME 9.5 fl (7.0-11.0); MONO % 9.8 % (1.0-6.0); RBC 3.84 10^6/uL (3.5-6.1); WHITE BLOOD COUNT 10.3 10^3/uL (4.5-11.0)
[2018-05-14] MEDS: Arformoterol 15 mcg/2 ml Inh Sol IH SCH (07:29)
[2018-05-14] MEDS: Budesonide 0.5 mg/2 ml Inhal Susp UD IH SCH (07:29)
[2018-05-14 07:36] LABS: ALB/GLOB RATIO 1.2 (1.1-1.8); ALBUMIN 3.4 g/dL (3.0-4.8); ALT/SGPT 56 U/L (7-56); AST/SGOT 30 U/L (14-36); BLOOD UREA NITROGEN 21 mg/dL (7-21); CALCIUM 9.9 mg/dL (8.4-10.5); GFR NON-AFRICAN AMERICAN > 60
[2018-05-14 08:05] VITALS: RESP 19
--- NOTE | 2018-05-14 08:27 | PN ---
DATE: 05/13/2018 PULMONARY PROGRESS NOTE REFERRING PHYSICIAN: Gregory Estrada MD SUBJECTIVE: The patient is lying in bed. No acute distress. Reports having some shortness of breath with exertion. Denies pain. No headache, rhinitis, cough, chest pain, abdominal pain, nausea, vomiting, diarrhea or leg pain reported. OBJECTIVE: GENERAL: No acute distress. VITAL SIGNS: Blood pressure 125/72, temperature 97.7, oxygen saturation 94% and heart rate 90. HEENT: Moist mucous membranes. Mallampati score of 4. Crowded airway. NECK: Supple. No JVD. LUNGS: Few scattered rhonchi. CARDIOVASCULAR: S1 and S2, audible. ABDOMEN: Soft and nontender. No distention. No organomegaly. EXTREMITIES: Trace bilateral lower extremity edema. NEUROLOGIC: Awake, alert and verbal. Follows commands. MEDICATIONS: Reviewed. Xanax 0.25 mg three times a day p.r.n., Brovana 15 mcg every 12 hours, aspirin 81 mg daily, Lipitor 10 mg at dinner, Tessalon Perles 100 mg three times a day, Pulmicort 1 mg every 12 hours, vitamin D 1000 units daily, Pepcid 40 mg at bedtime, Prozac 10 mg daily, Lasix 40 mg daily, Synthroid 100 mcg daily, Zofran 4 mg IV push every 6 hours p.r.n., Percocet 10/325 mg 1 tab every 6 hours p.r.n. and Lyrica 25 mg p.o. at bedtime. LABORATORY DATA: Reviewed. No new labs since yesterday. IMPRESSION AND PLAN: L1 kyphoplasty, L1 vertebral body biopsy. The patient had acute L1 compression fracture, chronic obstructive pulmonary disease, congestive heart failure, hypothyroidism, anxiety disorder, depression, coronary artery disease, obstructive sleep apnea syndrome. The patient should continue inhaled bronchodilators, fall precaution. Avoid nocturnal sedation. The patient will need sleep study and full pulmonary function test as outpatient. This patient was seen and examined with Dr. Simmons. Discussed assessment and plan as described above. Thank you for this consult. We will follow with you. Dileep Prudence, [employer] Jefferson Simmons MD [facility] # [id number]
[2018-05-14] MEDS: Cholecalciferol 1,000 INTLU TAB PO SCH (09:33)
[2018-05-14] MEDS: Levothyroxine 100 MCG TAB PO SCH (09:33)
[2018-05-14] MEDS: Non Formulary Medication (Tiotropium Bromide [Spiriva Respimat] 2.5 MCG) IH SCH (09:34)
--- NOTE | 2018-05-14 09:56 | CP.PCM.PCO ---
Physician Communication Note - Physician Communication Note Physician Communication Note: Patient is medically cleared for discharge, awaiting THADDEUS
--- NOTE | 2018-05-14 13:15 | CP.PCM.DIS ---
<Kemi Pérez - Last Filed: 05/14/18 15:54> Provider - Provider Date of Admission: 05/12/18 10:00 Attending physician: Gregory Estrada MD Primary care physician: Gregory Estrada MD Consults: 05/11/18 18:27 Social Work Referral Routine Comment: protocol Physician Instructions: Reason For Exam: discharge planning 05/11/18 18:38 Transition In Care/Readmission Reduction Routine Comment: Protocol Physician Instructions: Reason For Exam: hx of COPD 05/12/18 11:32 TCU [Evaluation for TRCU] Routine Comment: Physician Instructions: Reason For Exam: deconditioned, s/p kypho Time Spent in preparation of Discharge (in minutes): 45 Hospital Course - Lab Results Lab Results: Most Recent Lab Values WBC 10.3 10^3/uL (4.5-11.0) 05/14/18 06:25 RBC 3.84 10^6/uL (3.5-6.1) 05/14/18 06:25 Hgb 11.9 g/dL (12.0-16.0) L 05/14/18 06:25 Hct 36.9 % (36.0-48.0) 05/14/18 06:25 MCV 96.1 fl (80.0-105.0) 05/14/18 06:25 MCH 31.0 pg (25.0-35.0) 05/14/18 06:25 MCHC 32.2 g/dl (31.0-37.0) 05/14/18 06:25 RDW 16.0 % (11.5-14.5) H 05/14/18 06:25 Plt Count 243 10^3/uL (120.0-450.0) 05/14/18 06:25 MPV 9.5 fl (7.0-11.0) 05/14/18 06:25 Gran % 70.5 % (50.0-68.0) H 05/14/18 06:25 Lymph % (Auto) 18.4 % (22.0-35.0) L 05/14/18 06:25 [place] % (Auto) 9.8 % (1.0-6.0) H 05/14/18 06:25 Eos % (Auto) 1.1 % (1.5-5.0) L 05/14/18 06:25 Baso % (Auto) 0.2 % (0.0-3.0) 05/14/18 06:25 Gran # 7.24 (1.4-6.5) H 05/14/18 06:25 Lymph # (Auto) 1.9 (1.2-3.4) 05/14/18 06:25 [place] # (Auto) 1.0 (0.1-0.6) H 05/14/18 06:25 Eos # (Auto) 0.1 (0.0-0.7) 05/14/18 06:25 Baso # (Auto) 0.02 K/mm3 (0.0-2.0) 05/14/18 06:25 PT 10.4 SECONDS (9.4-12.5) 05/11/18 14:20 INR 0.91 05/11/18 14:20 APTT 33.6 Seconds (25.1-36.5) 05/11/18 14:20 Sodium 135 mmol/L (132-148) 05/14/18 06:25 Potassium 4.6 mmol/L (3.6-5.0) 05/14/18 06:25 Chloride 97 mmol/L (98-107) L 05/14/18 06:25 Carbon Dioxide 34 mmol/L (21-33) H 05/14/18 06:25 Anion Gap 9 (10-20) L 05/14/18 06:25 BUN 21 mg/dL (7-21) 05/14/18 06:25 Creatinine 0.9 mg/dl (0.7-1.2) 05/14/18 06:25 Est GFR ( Amer) > 60 05/14/18 06:25 Est GFR (Non-Af Amer) > 60 05/14/18 06:25 Random Glucose 122 mg/dL (70-110) H 05/14/18 06:25 Calcium 9.9 mg/dL (8.4-10.5) 05/14/18 06:25 Phosphorus 4.0 mg/dL (2.5-4.5) 05/14/18 06:25 Magnesium 1.7 mg/dL (1.7-2.2) 05/14/18 06:25 Total Bilirubin 0.8 mg/dL (0.2-1.3) 05/14/18 06:25 AST 30 U/L (14-36) 05/14/18 06:25 ALT 56 U/L (7-56) 05/14/18 06:25 Alkaline Phosphatase 137 U/L (38-126) H 05/14/18 06:25 Total Protein 6.3 g/dL (5.8-8.3) 05/14/18 06:25 Albumin 3.4 g/dL (3.0-4.8) 05/14/18 06:25 Globulin 2.9 gm/dL 05/14/18 06:25 Albumin/Globulin Ratio 1.2 (1.1-1.8) 05/14/18 06:25 - Hospital Course Hospital Course: Upon Admission 77yo female PMHx CAD, COPD, chronic lung disease and O2 dependence, CHF, hypothyroidism, HLD, LE cellulitis, pancreatitis, anxiety disorder and depression has been admitted under Dr. Estrada service s/p kyphoplasty with IR Dr. Mai. Patient was recently admitted to [facility] [place] ER on 04/29/18 for chest pain and SOB and was had a negative cardiac workup and discharged to TCU. In TCU patient was being seen by physical therapy as she was noted to have an acute compression fracture of the lumbosacral spine. As the patient's pain was excruciating and not improving she was seen by orthopedics and given options of surgical intervention vs concervative management by ortho and IR. As her pain did not improve, she was taken for kyphoplasty and vertebral body biopsy after which she was admitted for further management. Hospital Course Patient is POD#3 L1 kyphoplasty and L1 vertebral body biopsy. Pain controlled with current regimen. She had no acute complaints of ever, chills, headache, dizziness, chest pain, palpitations, SOB, cough, abd pain, nausea, vomiting, bowel/bladder complaints. Patient's labs and vitals have been reviewed. Patient had been working with physical therapy who recommended [facility]. Patient was accepted by [facility] and on day of discharge was deemed medically optimized for [facility]. Upon Discharge Patient was discharged to [facility] for continued rehab and pain management. Patient to resume home medications. Patient to follow up with PMD within 7 days of discharge from [facility]. Instructions discussed in detail with patient who understands and agrees. please note this is a discharge summary. For full hospital course please refer to EMR. Discharge Exam - Head Exam Head Exam: ATRAUMATIC, NORMAL INSPECTION, NORMOCEPHALIC - Eye Exam Eye Exam: EOMI, Normal appearance, PERRL. absent: Conjunctival injection, Scleral icterus Pupil Exam: NORMAL ACCOMODATION - ENT Exam ENT Exam: Mucous Membranes Moist - Respiratory Exam Respiratory Exam: Rhonchi (faint scattered), NORMAL BREATHING PATTERN. absent: Accessory Muscle Use, Rales, Wheezes, Respiratory Distress - Cardiovascular Exam Cardiovascular Exam: +S1, +S2 - GI/Abdominal Exam GI & Abdominal Exam: Normal Bowel Sounds, Soft. absent: Firm, Guarding, Rigid, Tenderness - Extremities Exam Extremities exam: normal capillary refill, pedal edema (b/l LE trace), pedal pulses present - Neurological Exam Neurological exam: Alert, CN II-XII Intact, Oriented x3 - Psychiatric Exam Psychiatric exam: Normal Affect, Normal Mood - Skin Skin Exam: Dry, Intact, Normal Color, Warm Discharge Plan - Follow Up Plan Condition: GOOD Disposition: TRANSF TO SNF Instructions: Vertebroplasty and Kyphoplasty Additional Instructions: MD TO FOLLOW AT REHAB. REPORT PAIN OR DISCOMFORT TO STAFF. CONTINUE MEDICATIONS INDICATED. Referrals: Gregory Estrada MD [Primary Care Provider] - <Gregory Estrada - Last Filed: 05/14/18 21:51> Provider - Provider Date of Admission: 05/12/18 10:00 Attending physician: Gregory Estrada MD Primary care physician: Gregory Estrada MD Consults: 05/11/18 18:27 Social Work Referral Routine Comment: protocol Physician Instructions: Reason For Exam: discharge planning 05/11/18 18:38 Transition In Care/Readmission Reduction Routine Comment: Protocol Physician Instructions: Reason For Exam: hx of COPD 05/12/18 11:32 TCU [Evaluation for TRCU] Routine Comment: Physician Instructions: Reason For Exam: deconditioned, s/p kypho Hospital Course - Lab Results Lab Results: Most Recent Lab Values WBC 10.3 10^3/uL (4.5-11.0) 05/14/18 06:25 RBC 3.84 10^6/uL (3.5-6.1) 05/14/18 06:25 Hgb 11.9 g/dL (12.0-16.0) L 05/14/18 06:25 Hct 36.9 % (36.0-48.0) 05/14/18 06:25 MCV 96.1 fl (80.0-105.0) 05/14/18 06:25 MCH 31.0 pg (25.0-35.0) 05/14/18 06:25 MCHC 32.2 g/dl (31.0-37.0) 05/14/18 06:25 RDW 16.0 % (11.5-14.5) H 05/14/18 06:25 Plt Count 243 10^3/uL (120.0-450.0) 05/14/18 06:25 MPV 9.5 fl (7.0-11.0) 05/14/18 06:25 Gran % 70.5 % (50.0-68.0) H 05/14/18 06:25 Lymph % (Auto) 18.4 % (22.0-35.0) L 05/14/18 06:25 [place] % (Auto) 9.8 % (1.0-6.0) H 05/14/18 06:25 Eos % (Auto) 1.1 % (1.5-5.0) L 05/14/18 06:25 Baso % (Auto) 0.2 % (0.0-3.0) 05/14/18 06:25 Gran # 7.24 (1.4-6.5) H 05/14/18 06:25 Lymph # (Auto) 1.9 (1.2-3.4) 05/14/18 06:25 [place] # (Auto) 1.0 (0.1-0.6) H 05/14/18 06:25 Eos # (Auto) 0.1 (0.0-0.7) 05/14/18 06:25 Baso # (Auto) 0.02 K/mm3 (0.0-2.0) 05/14/18 06:25 PT 10.4 SECONDS (9.4-12.5) 05/11/18 14:20 INR 0.91 05/11/18 14:20 APTT 33.6 Seconds (25.1-36.5) 05/11/18 14:20 Sodium 135 mmol/L (132-148) 05/14/18 06:25 Potassium 4.6 mmol/L (3.6-5.0) 05/14/18 06:25 Chloride 97 mmol/L (98-107) L 05/14/18 06:25 Carbon Dioxide 34 mmol/L (21-33) H 05/14/18 06:25 Anion Gap 9 (10-20) L 05/14/18 06:25 BUN 21 mg/dL (7-21) 05/14/18 06:25 Creatinine 0.9 mg/dl (0.7-1.2) 05/14/18 06:25 Est GFR ( Amer) > 60 05/14/18 06:25 Est GFR (Non-Af Amer) > 60 05/14/18 06:25 Random Glucose 122 mg/dL (70-110) H 05/14/18 06:25 Calcium 9.9 mg/dL (8.4-10.5) 05/14/18 06:25 Phosphorus 4.0 mg/dL (2.5-4.5) 05/14/18 06:25 Magnesium 1.7 mg/dL (1.7-2.2) 05/14/18 06:25 Total Bilirubin 0.8 mg/dL (0.2-1.3) 05/14/18 06:25 AST 30 U/L (14-36) 05/14/18 06:25 ALT 56 U/L (7-56) 05/14/18 06:25 Alkaline Phosphatase 137 U/L (38-126) H 05/14/18 06:25 Total Protein 6.3 g/dL (5.8-8.3) 05/14/18 06:25 Albumin 3.4 g/dL (3.0-4.8) 05/14/18 06:25 Globulin 2.9 gm/dL 05/14/18 06:25 Albumin/Globulin Ratio 1.2 (1.1-1.8) 05/14/18 06:25 - Hospital Course Hospital Course: Pt seen and examined by me. I have reviewed the note of the lpn or medical assistant and I agree with it. I have discussed the assessment and plan with the resident. I have reviewed the medications and the last labs. Pt with improving back pain. She is leaving to [facility] today. She was able to sleep well last night and had better pain control. Pt with hypothyroidism and will continue with thyroid replacement.
--- NOTE | 2018-05-14 13:15 | CP.PCM.HP ---
Past Patient History - Infectious Disease Hx of Infectious Diseases: None - Tetanus Immunizations Tetanus Immunization: Unknown - Past Medical History & Family History Past Medical History?: Yes - Past Social History Smoking Status: Never Smoked - CARDIAC Hx Cardiac Disorders: Yes Hx Congestive Heart Failure: Yes Hx Hypercholesterolemia: Yes Hx Hypertension: Yes - PULMONARY Hx Chronic Obstructive Pulmonary Disease (COPD): Yes - NEUROLOGICAL Hx Neurological Disorder: Yes Hx Dizziness: Yes Hx Migraine: Yes - HEENT Hx HEENT Problems: Yes ([place]) Hx Cataracts: Yes (PAST SX) Hx Deafness: Yes - RENAL Hx Chronic Kidney Disease: No - ENDOCRINE/METABOLIC Hx Hypothyroidism: Yes - HEMATOLOGICAL/ONCOLOGICAL Hx Blood Disorders: No - INTEGUMENTARY Hx Dermatological Problems: Yes Other/Comment: Hx of bilateral LE cellulitis - MUSCULOSKELETAL/RHEUMATOLOGICAL Hx Arthritis: Yes - GASTROINTESTINAL Hx Gastrointestinal Disorders: Yes (COLON POLYPS,CONSTIPATION,GERD,DEIVERTICULITIS,) Hx Gall Bladder Disease: Yes Hx Gastroesophageal Reflux: Yes Hx Pancreatitis: Yes Other/Comment: constipation - GENITOURINARY/GYNECOLOGICAL Hx Genitourinary Disorders: Yes Hx Incontinence: Yes - PSYCHIATRIC Hx Psychophysiologic Disorder: Yes Hx Anxiety: Yes Hx Bipolar Disorder: No Hx Depression: Yes Hx Emotional Abuse: No Hx Physical Abuse: No - SURGICAL HISTORY Hx Surgeries: Yes Hx Cardiac Catheterization: Yes Hx Cholecystectomy: Yes Hx Orthopedic Surgery: Yes (r knee) Other/Comment: carpal tunnel right hand, colonoscopies, left neck tumor, pacemaker 1999, generator change 2007, cardiac ablation, b/l cataract sx, t&a, kyphoplasty to L1 2019 - ANESTHESIA Hx Anesthesia Reactions: No Hx Malignant Hyperthermia: No Meds Home Medications: Home Medication List Medication Instructions Recorded Confirmed Type ALPRAZolam [Xanax] 0.25 mg PO TID PRN tab 05/14/18 Rx Acetaminophen/Oxycodone Hydr 1 tab PO Q6H PRN #16 tab 05/14/18 Rx [Percocet 10/325 mg Tab] Arformoterol [Brovana] 15 mcg IH [id number] neb 05/14/18 Rx Aspirin [Ecotrin] 81 mg PO DAILY tabec 05/14/18 Rx Atorvastatin [Lipitor] 10 mg PO DIN tab 05/14/18 Rx Benzonatate [Tessalon Perles] 100 mg PO TID sgl 05/14/18 Rx Budesonide [Pulmicort Respules] 1 mg IH [id number] neb 05/14/18 Rx Cholecalciferol [Vitamin D 1000 IU] 1,000 intlu PO DAILY tab 05/14/18 Rx FLUoxetine [Prozac] 10 mg PO DAILY cap 05/14/18 Rx Famotidine [Pepcid] 40 mg PO HS tab 05/14/18 Rx Furosemide [Lasix] 40 mg PO DAILY tab 05/14/18 Rx Levothyroxine [Synthroid] 100 mcg PO DAILY tab 05/14/18 Rx Pregabalin [Lyrica] 25 mg PO HS cap 05/14/18 Rx Tiotropium [place] [Spiriva 2.5 mcg IH DAILY 05/14/18 Rx Respimat] Allergies/Adverse Reactions: Allergies Allergy/AdvReac Type Severity Reaction Status Date / Time levofloxacin [From Levaquin] Allergy Severe ANAPHYLAXIS Verified 11/14/17 14:27 ceftriaxone [From Rocephin] Allergy RASH Verified 05/11/18 14:47 Results - Vital Signs Recent Vital Signs: Last Vital Signs Temp 98.4 F 05/14/18 08:04 Pulse 77 05/14/18 08:04 Resp 19 05/14/18 08:04 BP 133/63 05/14/18 09:33 Pulse Ox 98 05/14/18 08:04 - Labs Result Diagrams: 05/14/18 06:25 05/14/18 06:25 Labs: Laboratory Results - last 24 hr 05/14/18 05/14/18 06:25 06:25 WBC 10.3 RBC 3.84 Hgb 11.9 L Hct 36.9 MCV 96.1 MCH 31.0 MCHC 32.2 RDW 16.0 H Plt Count 243 MPV 9.5 Gran % 70.5 H Lymph % (Auto) 18.4 L [place] % (Auto) 9.8 H Eos % (Auto) 1.1 L Baso % (Auto) 0.2 Gran # 7.24 H Lymph # (Auto) 1.9 [place] # (Auto) 1.0 H Eos # (Auto) 0.1 Baso # (Auto) 0.02 Sodium 135 Potassium 4.6 Chloride 97 L Carbon Dioxide 34 H Anion Gap 9 L BUN 21 Creatinine 0.9 Est GFR ( Amer) > 60 Est GFR (Non-Af Amer) > 60 Random Glucose 122 H Calcium 9.9 Phosphorus 4.0 Magnesium 1.7 Total Bilirubin 0.8 AST 30 ALT 56 Alkaline Phosphatase 137 H Total Protein 6.3 Albumin 3.4 Globulin 2.9 Albumin/Globulin Ratio 1.2
[2018-05-14 17:46] VITALS: BP 126/71; PULSE 94; TEMP 97.5; O2SAT 94
--- NOTE | 2018-05-15 08:22 | PN ---
DATE: 05/14/2018 PULMONARY PROGRESS NOTE REFERRING PHYSICIAN: Dr. Estrada. SUBJECTIVE: The patient is sitting in chair in room. Daughter is at bedside. No acute distress. No overnight events reported. The patient reports having shortness of breath with exertion, mild pain to lower back. No headache, rhinitis, cough, chest pain, abdominal pain, nausea, vomiting, diarrhea, leg pain or leg swelling reported. OBJECTIVE GENERAL: No acute distress. VITAL SIGNS: Blood pressure 133/63, pulse 77, temperature 98.4 and oxygen saturation 98%. HEENT: Moist mucous membranes. Mallampati score of 4. Crowded airway. NECK: Supple. No JVD. LUNGS: Few scattered rhonchi. CARDIOVASCULAR: S1 and S2 audible. ABDOMEN: Soft and nontender. No distention. No organomegaly. EXTREMITIES: Trace bilateral lower extremity edema. NEUROLOGIC: Awake, alert, and verbal. Follows commands. MEDICATIONS: Reviewed. Xanax 0.25 mg 3 times a day p.r.n., Brovana 15 mcg every 12 hours, aspirin 81 mg daily, Lipitor 10 mg at dinner, Tessalon Perles 100 mg 3 times a day, Pulmicort 1 mg inhalation every 12 hours, vitamin D 1000 units daily, Pepcid 40 mg at bedtime, Prozac 10 mg daily, Lasix 40 mg daily, Synthroid 100 mcg daily, Spiriva 2.5 mcg inhalation daily, Zofran 4 mg every 6 hours p.r.n., Percocet 10/325 mg every 6 hours p.r.n. and Lyrica 25 mg at bedtime. LABORATORY DATA: Reviewed. WBC of 10.3, RBC 3.84, hemoglobin 1.9, hematocrit 36.9, and platelets 243. Sodium 135, potassium 4.6, chloride 96, carbon dioxide 34, anion gap of 9, BUN 21, creatinine 0.9, GFR greater than 60, random glucose 122, calcium 9.9, phosphorus 4.0, magnesium 1.7, total bilirubin 0.8, AST 30, ALT 56, alkaline phosphatase 137, total protein 6.3, albumin 3.4, globulin 2.9 and albumin-globulin ratio 1.2. Pathology of surgical specimen shows benign osseous tissue with intramedullary hemorrhage, fibrosis, reactive changes and marrow elements with all three hematopoietic cells. No carcinoma identified. IMPRESSION AND PLAN: L1 kyphoplasty, L1 vertebral body biopsy. The patient had acute L1 compression fracture, chronic obstructive pulmonary disease, congestive heart failure, hypothyroidism, anxiety disorder, depression, coronary artery disease, obstructive sleep apnea syndrome. The patient should continue inhaled bronchodilators, fall precaution. Avoid nocturnal sedation. The patient will need sleep study and full pulmonary function test as outpatient. Respiratory barclay, the patient is stable at this time pending discharge to subacute rehab. This patient was seen and examined with Dr. Simmons. Discussed assessment and plan as described above. Thank you for this consult and we will follow with you. Dileep Og APN Jefferson Simmons MD [facility]
== END 2018-05-14 19:38 | DRG 479 ==
LOC: SDSVAS 13:39 → 3RNO 18:00 → SDSVAS 05-12 10:00
PROVIDERS: ADMIT Internal Medicine Nephrology; ATTEND Internal Medicine Nephrology
PROC: 0QS03ZZ Reposition Lumbar Vertebra, Percutaneous Approach (ICD-10-PCS; principal; 2018-05-11)
PROC: 0Q903ZX Drainage of Lumbar Vertebra, Percutaneous Approach, Diagnostic (ICD-10-PCS; 2018-05-11)
PROC: 0QU03JZ Supplement Lumbar Vertebra with Synthetic Substitute, Percutaneous Approach (ICD-10-PCS; 2018-05-11)
DX: M48.56XA Collapsed vertebra, not elsewhere classified, lumbar region, initial encounter for fracture (principal); E03.9 Hypothyroidism, unspecified; J44.9 Chronic obstructive pulmonary disease, unspecified; G47.33 Obstructive sleep apnea (adult) (pediatric); F41.9 Anxiety disorder, unspecified; I25.10 Atherosclerotic heart disease of native coronary artery without angina pectoris; I50.9 Heart failure, unspecified; Z79.899 Other long term (current) drug therapy; Z87.891 Personal history of nicotine dependence; Z99.81 Dependence on supplemental oxygen; F32.89 Other specified depressive episodes; E78.00 Pure hypercholesterolemia, unspecified; H91.90 Unspecified hearing loss, unspecified ear; I11.0 Hypertensive heart disease with heart failure; K21.9 Gastro-esophageal reflux disease without esophagitis; Z86.010 Personal history of colon polyps; Z90.49 Acquired absence of other specified parts of digestive tract; Z98.49 Cataract extraction status, unspecified eye; Z88.1 Allergy status to other antibiotic agents; Z87.892 Personal history of anaphylaxis; E78.5 Hyperlipidemia, unspecified; K59.00 Constipation, unspecified; Z87.19 Personal history of other diseases of the digestive system

== ENCOUNTER 2018-06-18 09:00 | Outpatient (CLI) | payer MEDICARE, OTHER | END 2018-06-18 09:15 | disposition home or self-care (01) | LOC: CARDIO 09:00 ==

== ENCOUNTER 2018-06-25 23:37 | Inpatient (IN) | payer MEDICARE, OTHER ==
--- NOTE | 2018-06-26 00:23 | ED PDOC ---
Arrival/HPI - General Chief Complaint: Shortness Of Breath Time Seen by Provider: 06/25/18 23:49 Historian: Patient - History of Present Illness Narrative History of Present Illness (Text): 06/26/18 00:22 A 77 year old female, whose past medical history includes CHF, COPD, hyperthyroidism, pancreatitis, pacemaker, depression, and cellulitis, presents to the emergency department complaining of malaise, weakness, chest discomfort, and occasional shortness of breath. Patient denies any nausea, vomiting, diarrhea, any urinary symptoms, or any other complaints at this time. Past Medical History - Provider Review Nursing Documentation Reviewed: Yes - Infectious Disease Hx of Infectious Diseases: None - Tetanus Immunization Tetanus Immunization: Unknown - Cardiac Hx Peripheral Edema: Yes - Pulmonary Hx Chronic Obstructive Pulmonary Disease (COPD): Yes - Neurological Hx Neurological Disorder: Yes Hx Dizziness: Yes Hx Migraine: Yes - HEENT Hx HEENT Disorder: Yes ([place]) Hx Cataracts: Yes (PAST SX) Hx Deafness: Yes - Renal Hx Renal Disorder: No - Endocrine/Metabolic Hx Hypothyroidism: Yes - Hematological/Oncological Hx Blood Disorders: No - Integumentary Other/Comment: Hx of bilateral LE cellulitis - Musculoskeletal/Rheumatological Hx Back Pain: Yes Hx Fractures: Yes (compression fx L1 w/ kyphoplasty 05/11/18) Hx Unsteady Gait: Yes - Gastrointestinal Hx Gastrointestinal Disorders: Yes (COLON POLYPS,CONSTIPATION,GERD,DEIVERTICULITIS,) Other/Comment: constipation - Genitourinary/Gynecological Hx Genitourinary Disorders: Yes Hx Incontinence: Yes - Psychiatric Hx Bipolar Disorder: No Hx Substance Use: No - Surgical History Hx Orthopedic Surgery: Yes (r knee) Other/Comment: carpal tunnel right hand, colonoscopies, left neck tumor, pacemaker 1999, generator change 2007, cardiac ablation, b/l cataract sx, t&a, kyphoplasty to L1 2019 - Anesthesia Hx Anesthesia Reactions: No Hx Malignant Hyperthermia: No - Suicidal Assessment Feels Threatened In Home Enviroment: No Family/Social History - Physician Review Nursing Documentation Reviewed: Yes Family/Social History: No Known Family HX Smoking Status: Never Smoked Hx Alcohol Use: No Hx Substance Use: No Allergies/Home Meds Allergies/Adverse Reactions: Allergies levofloxacin [From Levaquin] Allergy (Severe, Verified 11/14/17 14:27) ANAPHYLAXIS ceftriaxone [From Rocephin] Allergy (Verified 05/11/18 14:47) RASH Home Medications: Home Meds Medication Instructions Recorded Confirmed Acetaminophen/Oxycodone Hydr 5 mg PO Q6H PRN 06/26/18 06/26/18 [Percocet 10/325 mg Tab] Albuterol 0.083% [Albuterol 0.083% 1 insert PO BID 06/26/18 06/26/18 Inhal Marylin (2.5 mg/3 ml) UD] Magnesium Oxide [Magox 400] 400 mg PO DAILY 06/26/18 06/26/18 Potassium Chloride [K-Dur 20 mEq 20 meq PO DAILY 06/26/18 06/26/18 ER Tab] Spironolactone [Aldactone] 50 mg PO DAILY 06/26/18 06/26/18 Tiotropium [place] [Spiriva 1.25 mcg IH DAILY 06/26/18 06/26/18 Respimat] Review of Systems - Physician Review All systems were reviewed & negative as marked: Yes - Review of Systems Constitutional: Other (weakness; malaise.) Respiratory: SOB Cardiovascular: Chest Pain (chest discomfort) Gastrointestinal: absent: Diarrhea, Nausea, Vomiting Genitourinary Female: absent: Dysuria, Frequency, Hematuria, Urine Output Changes Physical Exam Pain Distress: None Mental Status: Positive for: Alert and Oriented X 3 - Systems Exam Head: Present: Atraumatic, Normocephalic Pupils: Present: PERRL Extroacular Muscles: Present: EOMI Conjunctiva: Present: Normal Mouth: Present: Moist Mucous Membranes Neck: Present: Normal Range of Motion Respiratory/Chest: Present: Rhonchi Cardiovascular: Present: Regular Rate and Rhythm, Normal S1, S2. No: Murmurs Abdomen: No: Tenderness, Distention, Peritoneal Signs Back: Present: Normal Inspection Upper Extremity: Present: Normal Inspection. No: Cyanosis, Edema Lower Extremity: Present: Normal Inspection. No: Edema Neurological: Present: GCS=15, CN II-XII Intact, Speech Normal Skin: Present: Warm, Dry, Normal Color. No: Rashes Psychiatric: Present: Alert, Oriented x 3, Normal Insight, Normal Concentration Medical Decision Making ED Course and Treatment: 06/26/18 00:23 Impression: 77 year old female with malaise, weakness, chest discomfort, and occasional shortness of breath. Physical exam shows rhonchi. Plan: -- EKG -- Chest X-ray -- Labs -- Reassess and disposition Progress Notes: EKG: Ordered, reviewed, and independently interpreted the EKG. Rate : 75 BPM Rhythm : Paced rhythm Interpretation : No ST-segment elevations or depressions, no T-wave inversions, normal intervals. Comparison : No previous EKG for comparison. 06/26/18 02:28 Chest X-ray shows no acute process. 06/26/18 02:34 Case was discussed with PMD /Accepts to his service/tele obs. - RAD Interpretation Radiology Orders: 06/26/18 00:15 CHEST PORTABLE [RAD] Stat - Scribe Statement The provider has reviewed the documentation as recorded by the Chikiibyazna Aj Provider Scribe Attestation: All medical record entries made by the Scribe were at my direction and personally dictated by me. I have reviewed the chart and agree that the record accurately reflects my personal performance of the history, physical exam, medical decision making, and the department course for this patient. I have also personally directed, reviewed, and agree with the discharge instructions and disposition. Disposition/Present on Arrival - Present on Arrival Any Indicators Present on Arrival: No History of DVT/PE: No History of Uncontrolled Diabetes: No Urinary Catheter: No History of Decub. Ulcer: No History Surgical Site Infection Following: None - Disposition Have Diagnosis and Disposition been Completed?: Yes Diagnosis: Chest pain, COPD (chronic obstructive pulmonary disease) Disposition: HOSPITALIZED Disposition Time: 02:34 Patient Plan: Observation Patient Problems: Current Active Problems Problem Status Onset Chest pain Acute COPD (chronic obstructive pulmonary disease) Chronic Condition: STABLE
[2018-06-26 01:07] LABS: HEMOGLOBIN 11.4 g/dL (12.0-16.0); MEAN CELL VOLUME 98.4 fl (80.0-105.0); MEAN CORPUSCULAR HEMOGLOBIN 30.8 pg (25.0-35.0); MEAN CORPUSCULAR HGB CONC 31.3 g/dl (31.0-37.0); MEAN PLATELET VOLUME 9.8 fl (7.0-11.0); RBC 3.7 10^6/uL (3.5-6.1); RED CELL DISTRIBUTION WIDTH 14.9 % (11.5-14.5); WHITE BLOOD COUNT 7.4 10^3/uL (4.5-11.0)
[2018-06-26 01:24] LABS: INR 1.08; PARTIAL THROMBOPLASTIN TIME 35.1 Seconds (26.9-38.3)
[2018-06-26 02:11] LABS: BLOOD UREA NITROGEN 20 mg/dL (7-21); CALCIUM 10.3 mg/dL (8.4-10.5); GFR NON-AFRICAN AMERICAN 48
[2018-06-26 02:12] LABS: ALB/GLOB RATIO 1.3 (1.1-1.8); ALBUMIN 4.2 g/dL (3.0-4.8); ALT/SGPT 12 U/L (7-56); AST/SGOT 30 U/L (14-36); B-TYPE NATRIURETIC PEPTIDE 284 pg/mL (0-450); TROPONIN I < 0.01 ng/mL
[2018-06-26] MEDS ORDERED: Albuterol-Ipratrop 3 mg / 0.5 (3 ml) UD IH STA (02:28)
[2018-06-26 05:15] VITALS: BMI 31.1
[2018-06-26] MEDS ORDERED: metOLazone 5 MG TAB PO ONE (07:43)
[2018-06-26] MEDS: Levothyroxine 100 MCG TAB PO SCH (09:24)
[2018-06-26] MEDS: Magnesium Oxide 400 mg Tab UD PO SCH (09:25)
[2018-06-26] MEDS: Potassium Chloride 20 mEq ER Tab PO SCH (09:25)
--- NOTE | 2018-06-26 09:49 | RAD ---
Date of service: 06/26/2018 HISTORY: weak COMPARISON: 04/28/2018 FINDINGS: LUNGS: No active pulmonary disease. PLEURA: No significant pleural effusion identified, no pneumothorax apparent. CARDIOVASCULAR: Aortic calcification Normal cardiac size. No pulmonary vascular congestion. OSSEOUS STRUCTURES: No significant abnormalities. VISUALIZED UPPER ABDOMEN: Normal. OTHER FINDINGS: Dual lead pacemaker IMPRESSION: No active disease.
--- NOTE | 2018-06-26 10:55 | CARD ---
APPROVED REPORT Date of service: 06/25/2018 EKG Measurement Heart [id number] <Conclusion> Electronic atrial pacemaker
[2018-06-26 11:02] LABS: HDL CHOLESTEROL 56 mg/dL (29-60)
[2018-06-26 11:13] LABS: LDL CHOLESTEROL 62 mg/dL (0-129)
--- NOTE | 2018-06-26 11:13 | CP.PCM.CON ---
<Bruce Cook - Last Filed: 06/26/18 12:16> History of Present Illness - History of Present Illness History of Present Illness: Podiatry consult note for Dr. Talbert: 77 y/o female patient with PMHx CAD, COPD, chronic lung disease and O2 dependence, CHF, hypothyroidism, HLD, LE cellulitis, pancreatitis, anxiety disorder and depression seen and evaluated at the bedside for painful left big toe. Patient is a poor historian due to her current status. Patient daughter accompanies her at the bedside. She states that patient admitted for malaise, AMS and lethargy. She states that yesterday her mother complain of pain in her left big toe. She states that her mother She denies recent acute complaints of fever, chills, headache, dizziness, chest pain, palpitations, SOB, cough, abd pain, nausea, vomiting, Patient daughter denies any other pedal complaint at this time PMHx: CAD, COPD, chronic lung disease and O2 dependence, CHF, hypothyroidism, HLD, LE cellulitis, pancreatitis, anxiety disorder and depression PSHx: pacemaker insertion, R knee surgery. ALL: levofloxacin, ceftriaxone FamHx: noncontributory SocHx: former tobacco use; denies EtOH/drug use Review of Systems - Review of Systems Review of Systems: As per HPI - Constitutional Constitutional: As Per HPI Past Patient History - Infectious Disease Hx of Infectious Diseases: None - Tetanus Immunizations Tetanus Immunization: Unknown - Past Medical History & Family History Past Medical History?: Yes - Past Social History Smoking Status: Former Smoker - CARDIAC Hx Cardiac Disorders: Yes Hx Congestive Heart Failure: Yes Hx Hypercholesterolemia: Yes Hx Pacemaker: Yes Hx Peripheral Edema: Yes - PULMONARY Hx Respiratory Disorders: Yes Hx Chronic Obstructive Pulmonary Disease (COPD): Yes - NEUROLOGICAL Hx Neurological Disorder: Yes Hx Dizziness: Yes Hx Migraine: Yes - HEENT Hx HEENT Problems: Yes ([place]) Hx Cataracts: Yes (PAST SX) Hx Deafness: Yes - RENAL Hx Chronic Kidney Disease: No - ENDOCRINE/METABOLIC Hx Endocrine Disorders: Yes Hx Hypothyroidism: Yes - HEMATOLOGICAL/ONCOLOGICAL Hx Blood Disorders: No - INTEGUMENTARY Hx Dermatological Problems: Yes Other/Comment: Hx of bilateral LE cellulitis - MUSCULOSKELETAL/RHEUMATOLOGICAL Hx Musculoskeletal Disorders: Yes Hx Back Pain: Yes Hx Falls: Yes Hx Fractures: Yes (compression fx L1 w/ kyphoplasty 05/11/18) Hx Unsteady Gait: Yes - GASTROINTESTINAL Hx Gastrointestinal Disorders: Yes (COLON POLYPS,CONSTIPATIO N,GERD,DEIVERTICULITIS,) Other/Comment: constipation - GENITOURINARY/GYNECOLOGICAL Hx Genitourinary Disorders: Yes Hx Incontinence: Yes - PSYCHIATRIC Hx Psychophysiologic Disorder: No Hx Bipolar Disorder: No Hx Substance Use: No (denies) - SURGICAL HISTORY Hx Surgeries: Yes Hx Orthopedic Surgery: Yes (r knee) Other/Comment: carpal tunnel right hand, colonoscopies, left neck tumor, pacemaker 1999, generator change 2007, cardiac ablation, b/l cataract sx, t&a, kyphoplasty to L1 2019 - ANESTHESIA Hx Anesthesia Reactions: No Hx Malignant Hyperthermia: No Meds Allergies/Adverse Reactions: Allergies Allergy/AdvReac Type Severity Reaction Status Date / Time levofloxacin [From Levaquin] Allergy Severe ANAPHYLAXIS Verified 11/14/17 14:27 ceftriaxone [From Rocephin] Allergy RASH Verified 05/11/18 14:47 - Medications Medications: Current Medications Albuterol/Ipratropium (Duoneb 3 Mg/0.5 Mg (3 Ml) Ud) 3 ml IH Q4H PRN PRN Reason: Shortness of Breath Aspirin (Ecotrin) 81 mg PO DAILY [facility] Last Admin: 06/26/18 09:25 Dose: 81 mg Atorvastatin Calcium (Lipitor) 10 mg PO DIN [facility] Fluoxetine HCl (Prozac) 10 mg PO DAILY [facility] Last Admin: 06/26/18 09:25 Dose: 10 mg Furosemide (Lasix) 40 mg IVP BID [facility] Last Admin: 06/26/18 09:25 Dose: 40 mg Ibuprofen (Motrin Tab) 400 mg PO Q6H [facility] Stop: 06/26/18 21:31 Levothyroxine Sodium (Synthroid) 100 mcg PO DAILY [facility] Last Admin: 06/26/18 09:24 Dose: 100 mcg Magnesium Oxide (Mag-Ox) 400 mg PO DAILY [facility] Last Admin: 06/26/18 09:25 Dose: 400 mg Oxycodone/Acetaminophen (Percocet 10/325 Mg Tab) 1 tab PO Q4H PRN PRN Reason: Pain, moderate (4-7) Potassium Chloride (K-Dur 20 Meq Er Tab) 20 meq PO DAILY [facility] Last Admin: 06/26/18 09:25 Dose: 20 meq Pregabalin (Lyrica) 25 mg PO HS [facility] Spironolactone (Aldactone) 50 mg PO DAILY [facility] Physical Exam - Head Exam Head Exam: ATRAUMATIC, NORMOCEPHALIC - Extremities Exam Additional comments: B/L lower extremity focused exam: Vascular: DP/PT non palpable due to edema, Cap refill < 3 seconds, Temp gradient warm to cool from proximal to distal, +2 pitting extending up to the knees edema appreciated to b/l extremities. erythema noted on the left hallux and bilateral legs. Neuro: Gross sensation intact, protective sensation diminished. Derm: No open lesions, erythema noted on the left hallux and bilateral legs, Elongated/dystrophic/ingrowing and thickened toe nails x10 noted. MSK:Tenderness to palpation of left medial hallux nail fold, Muscle power intact 5/5 to plantar flexors of the ankle, 4/5 in all other groups. Results - Vital Signs Recent Vital Signs: Last Vital Signs Temp 98.1 F 06/26/18 06:00 Pulse 98 H 06/26/18 06:00 Resp 19 06/26/18 06:00 BP 114/57 L 06/26/18 09:25 Pulse Ox 97 06/26/18 06:00 - Labs Result Diagrams: 06/26/18 00:18 06/26/18 00:18 Labs: Laboratory Results - last 24 hr 06/26/18 06/26/18 06/26/18 00:18 00:18 00:18 WBC 7.4 D RBC 3.70 Hgb 11.4 L Hct 36.4 MCV 98.4 MCH 30.8 MCHC 31.3 RDW 14.9 H Plt Count 305 MPV 9.8 PT 12.0 INR 1.08 APTT 35.1 Sodium 133 Potassium 4.5 Chloride 93 L Carbon Dioxide 33 Anion Gap 12 BUN 20 Creatinine 1.1 Est GFR ( Amer) 58 Est GFR (Non-Af Amer) 48 Random Glucose 128 H Calcium 10.3 Total Bilirubin 0.7 AST 30 ALT 12 Alkaline Phosphatase 99 Lactate Dehydrogenase 545 Total Creatine Kinase 29 L Troponin I < 0.01 D NT-Pro-B Natriuret Pep 284 Total Protein 7.5 Albumin 4.2 Globulin 3.3 Albumin/Globulin Ratio 1.3 Triglycerides Cholesterol HDL Cholesterol 06/26/18 06/26/18 08:30 10:00 WBC RBC Hgb Hct MCV MCH MCHC RDW Plt Count MPV PT INR APTT Sodium Potassium Chloride Carbon Dioxide Anion Gap BUN Creatinine Est GFR ( Amer) Est GFR (Non-Af Amer) Random Glucose Calcium Total Bilirubin AST ALT Alkaline Phosphatase Lactate Dehydrogenase Total Creatine Kinase Troponin I < 0.01 NT-Pro-B Natriuret Pep Total Protein Albumin Globulin Albumin/Globulin Ratio Triglycerides 120 Cholesterol 135 HDL Cholesterol 56 Assessment & Plan - Assessment and Plan (Free Text) Assessment: 77 y/o female patient with PMHx CAD, COPD, chronic lung disease and O2 dependence, CHF, hypothyroidism, HLD, LE cellulitis, pancreatitis, anxiety disor makeda and depression seen and evaluated at the bedside for painful left big toe. Plan: Patient seen and evaluated with DR. Talbert Discussed in detail with Dr. Talbert Charts, labs and vitals reviewed; Afebrile, WBC 6.9 (06/09) slant back was done to the left hallux medial nail border using sterile nail nipper. 1 cc of thick pus expressed from the left hallux medial nail fold. Wound culture collected and sent to the lab. Right hallux cleaned with betadine and dressed with Mepilex. Patient tolerated the left hallux toe nail slant back well with no complications. Ordered bactroban to be added to the dressing starting tomorrow. Ordered Left foot 3 views X-ray. Ordered PAWAN/PVR LE. Thank you for the consult Podiatry will follow up the patient while in house. - Date & Time Date: 06/26/18 Time: 12:20 <Gael Talbert - Last Filed: 06/26/18 14:11> Meds - Medications Medications: Current Medications Albuterol/Ipratropium (Duoneb 3 Mg/0.5 Mg (3 Ml) Ud) 3 ml IH Q4H PRN PRN Reason: Shortness of Breath Last Admin: 06/26/18 13:36 Dose: 3 ml Aspirin (Ecotrin) 81 mg PO DAILY [facility] Last Admin: 06/26/18 09:25 Dose: 81 mg Atorvastatin Calcium (Lipitor) 10 mg PO DIN [facility] Fluoxetine HCl (Prozac) 10 mg PO DAILY [facility] Last Admin: 06/26/18 09:25 Dose: 10 mg Furosemide (Lasix) 40 mg IVP BID [facility] Last Admin: 06/26/18 09:25 Dose: 40 mg Ibuprofen (Motrin Tab) 400 mg PO Q6H [facility] Stop: 06/26/18 21:31 Last Admin: 06/26/18 10:00 Dose: Not Given Levothyroxine Sodium (Synthroid) 100 mcg PO DAILY [facility] Last Admin: 06/26/18 09:24 Dose: 100 mcg Magnesium Oxide (Mag-Ox) 400 mg PO DAILY [facility] Last Admin: 06/26/18 09:25 Dose: 400 mg Mupirocin (Bactroban Ointment) 1 gm TOP BID [facility] Oxycodone/Acetaminophen (Percocet 10/325 Mg Tab) 1 tab PO Q4H PRN PRN Reason: Pain, moderate (4-7) Last Admin: 06/26/18 11:51 Dose: 1 tab Potassium Chloride (K-Dur 20 Meq Er Tab) 20 meq PO DAILY [facility] Last Admin: 06/26/18 09:25 Dose: 20 meq Pregabalin (Lyrica) 25 mg PO [facility] Spironolactone (Aldactone) 50 mg PO DAILY [facility] Last Admin: 06/26/18 10:00 Dose: 50 mg Results - Vital Signs Recent Vital Signs: Last Vital Signs Temp 98.1 F 06/26/18 06:00 Pulse 98 H 06/26/18 06:00 Resp 19 06/26/18 06:00 BP 114/57 L 06/26/18 09:25 Pulse Ox 97 06/26/18 06:00 - Labs Result Diagrams: 06/26/18 00:18 06/26/18 00:18 Labs: Laboratory Results - last 24 hr 06/26/18 06/26/18 06/26/18 00:18 00:18 00:18 WBC 7.4 D RBC 3.70 Hgb 11.4 L Hct 36.4 MCV 98.4 MCH 30.8 MCHC 31.3 RDW 14.9 H Plt Count 305 MPV 9.8 PT 12.0 INR 1.08 APTT 35.1 Sodium 133 Potassium 4.5 Chloride 93 L Carbon Dioxide 33 Anion Gap 12 BUN 20 Creatinine 1.1 Est GFR ( Amer) 58 Est GFR (Non-Af Amer) 48 Random Glucose 128 H Calcium 10.3 Total Bilirubin 0.7 AST 30 ALT 12 Alkaline Phosphatase 99 Lactate Dehydrogenase 545 Total Creatine Kinase 29 L Troponin I < 0.01 D NT-Pro-B Natriuret Pep 284 Total Protein 7.5 Albumin 4.2 Globulin 3.3 Albumin/Globulin Ratio 1.3 Triglycerides Cholesterol LDL Cholesterol Direct HDL Cholesterol 06/26/18 06/26/18 08:30 10:00 WBC RBC Hgb Hct MCV MCH MCHC RDW Plt Count MPV PT INR APTT Sodium Potassium Chloride Carbon Dioxide Anion Gap BUN Creatinine Est GFR ( Amer) Est GFR (Non-Af Amer) Random Glucose Calcium Total Bilirubin AST ALT Alkaline Phosphatase Lactate Dehydrogenase Total Creatine Kinase Troponin I < 0.01 NT-Pro-B Natriuret Pep Total Protein Albumin Globulin Albumin/Globulin Ratio Triglycerides 120 Cholesterol 135 LDL Cholesterol Direct 62 HDL Cholesterol 56 Attending/Attestation - Attestation I have personally seen and examined this patient.: Yes I have fully participated in the care of the patient.: Yes I have reviewed all pertinent clinical information: Yes
[2018-06-26] MEDS: Oxycodone/Acetaminophen 10/325 mg Tab PO PRN (11:51)
--- NOTE | 2018-06-26 13:01 | CT ---
Date of service: 06/26/2018 PROCEDURE: CT Lumbar Spine without contrast HISTORY: fall COMPARISON: None available. TECHNIQUE: Axial computed tomography images were obtained of the lumbar spine without the use of intravenous contrast. Coronal and sagittal reformatted images were created and reviewed. Radiation dose: Total exam DLP = 1218.14 mGy-cm. This CT exam was performed using one or more of the following dose reduction techniques: Automated exposure control, adjustment of the mA and/or kV according to patient size, and/or use of iterative reconstruction technique. FINDINGS: VERTEBRAE: There has been a previous vertebroplasty at L1. mild curvature of the spine to the left DISCS/SPINAL CANAL/NEURAL FORAMINA: L1-2: Unremarkable. L2-3: Unremarkable. L3-4: Unremarkable. L4-5: Mild disc bulge L5-S1: Mild disc bulge PARASPINAL SOFT TISSUES: Unremarkable. OTHER FINDINGS: None. IMPRESSION: Previous vertebroplasty at L1. No acute compression fractures.
[2018-06-26] MEDS: Albuterol-Ipratrop 3 mg / 0.5 (3 ml) UD IH PRN (13:36)
--- NOTE | 2018-06-26 14:44 | HP ---
DATE OF EXAM: 06/26/2018 CHIEF COMPLAINT AND HISTORY OF PRESENT ILLNESS: This is a 77-year-old female who is coming to the hospital with past medical history of hypothyroidism, COPD, pacemaker, depression, CHF, coronary artery disease, dyslipidemia, L1 vertebral fracture. She is coming to the hospital because she was having weakness. She is having difficulty in ambulating. She is complaining of shortness of breath. The patient currently was having difficult time at home. She was not able to give me a good history. She is drowsy. I tried to call the patient's daughter and I left a message was not able to speak with her, I left her my number for the office. Review of symptoms is limited. PAST MEDICAL HISTORY: As above. ALLERGIES: LEVOFLAXACIN AND CEFTRIAXONE. SOCIAL HISTORY: No smoking or drug use. FAMILY HISTORY: Noncontributory. MEDICATIONS: Had been reviewed on the medical reconciliation form. PHYSICAL EXAMINATION: VITAL SIGNS: Temperature is 98.1, pulse of 98, blood pressure 105/63, respiration 19 and O2 saturation 97%. GENERAL: The patient is lying in bed, comfortable, and in no acute distress. HEENT: Atraumatic and normocephalic. Anicteric sclerae. Moist mucosa. [place] conjunctivae. No oral lesions. NECK: No JVD, anterior and posterior adenopathy, thyromegaly, or bruits. CARDIOVASCULAR: S1 and S2 regular. No murmurs, rubs or gallops. LUNGS: Clear to auscultation bilaterally. No wheezes, rales, or rhonchi. ABDOMEN: Bowel sounds are positive. Soft, nontender and nondistended. No hepatosplenomegaly. No rebound and no guarding. EXTREMITIES: lower extremity 2+ edema. NEUROLOGIC: Limited. The patient is able to move all four extremities. No facial asymmetry. PSYCHIATRIC: Unable to assess. GENITOURINARY: No CVA tenderness. VASCULAR: 2+ pulses in the carotid pulses and pedal pulses. SKIN: No erythema or nodules. SPINE: Shows normal curvature. LABORATORY DATA: Sodium 133, creatinine 1.1 and troponin 0.01. White count of 10.4, hemoglobin 11.4 and platelet count 304. INR is 1. Chest x-ray shows no infiltrates. There is a pacemaker present. ASSESSMENT: 1. Shortness of breath, secondary to acute chronic heart failure with diastolic dysfunction. 2. Moderate aortic regurgitation. 3. Aortic regurgitation. 4. Hypothyroidism. 5. Chronic obstructive pulmonary disease. 6. Dyslipidemia. 7. Coronary artery disease. 8. L1 vertebral fracture, status post kyphoplasty. PLAN: The patient is going to be admitted to the hospital. She has lower extremity edema. She is shortness of breath. She has acute CHF. I will place her on Lasix IV. She is going to continue her O2 as needed. I tried to call the patient's daughter, was not able to get in touch with her. The patient had Lipitor for dyslipidemia. She is going to be on Prozac for anxiety. She is on Synthroid for hypothyroidism. She is on Aldactone because she becomes hypokalemic. I will give her dose of metolazone to try to diurese her. I will get Dr. Levine to evaluate the patient. I will also make the patient inpatient. Gregory Estrada MD
--- NOTE | 2018-06-26 16:05 | US ---
PROCEDURE: Lower extremity PAWAN exam HISTORY: Peripheral vascular disease with pain and ulceration. Previous smoker. PHYSICIAN(S): Valentin Mai MD. FINDINGS: The resting PAWAN's are normal: right, 1.01and left, 1.04. The brachial systolic pressures are symmetric. The low thigh pressures and waveforms are relatively normal. The calf PVR waveforms augment normally. No significant gradients are noted across the thighs. The ankle and metatarsal waveforms are relatively normal and symmetric. No significant pressure gradients are noted across the lower legs. IMPRESSION: 1. Normal PAWAN and PVR examination at rest.
--- NOTE | 2018-06-26 16:10 | RAD ---
Date of service: 06/26/2018 PROCEDURE: Left Foot Radiographs. HISTORY: S/P left hallux paronychia I D COMPARISON: None. FINDINGS: BONES: Normal. No fracture. JOINTS: Normal. SOFT TISSUES: Normal. OTHER FINDINGS: None. IMPRESSION: Normal left foot radiographs.
[2018-06-26] MEDS: Mupirocin 2% Ointment 15 GM TUBE TOP SCH (18:07)
--- NOTE | 2018-06-26 19:15 | CON ---
DATE: 06/26/2018 CONSULT SERVICE: Cardiology. REASON FOR CONSULTATION: Cardiac evaluation, chest pain, shortness of breath, COPD and tenderness in the chest. BRIEF CLINICAL HISTORY: This is a 77-year-old female with past medical history significant for COPD, CHF secondary to diastolic dysfunction, hypothyroidism, history of pacemaker, depression, multiple admission recently with COPD exacerbation and shortness of breath, came in with complaints of shortness of breath and chest pain with very tenderness in the front of the chest. PAST MEDICAL HISTORY: Significant for COPD, CHF secondary to diastolic dysfunction, atrial fibrillation paroxysmal, anxiety disorder, depression, hypertension, status post permanent pacemaker, and history of pacemaker generator change. PAST SURGICAL HISTORY: Significant for pacemaker, knee surgery, and history of cardiac catheterization. PREVIOUS CARDIAC WORKUP: As follows; the patient has a stress test in 05/2017 that shows ischemia with the patient following this. The patient underwent cardiac catheterization on 06/11/2018, left and right heart catheterization that revealed normal coronaries, preserved LV function, ejection fraction 60%. ADP was in the range of 20. The patient also has right heart catheterization done at the same time because of multiple admissions with shortness of breath and pulmonary hypertension. The right heart catheterization revealed RA 15, right ventricle 44/15, PE 40/25, mean PA 32, pulmonary capillary wedge pressure 24, and PCW 24. As mentioned essentially normal coronaries. Echo on 06/09/2017, shows ejection fraction 55%, [id number] aortic regurgitation, [id number] mitral regurgitation, mild tricuspid regurgitation, RV systolic pressure 35. The patient had a repeat echocardiography done on 04/13/2018, that revealed ejection fraction 65%, left coronary cusp was heavily calcified, this is a moderate aortic regurgitation, mild mitral regurgitation, mild tricuspid regurgitation, RV systolic pressure 31, pacemaker lead noted in right atrium, right ventricle, aortic sclerosis versus mild aortic stenosis. When compared from the previous echo dated 06/09/2017, aortic valve appears similar except AR is getting more than before. SOCIAL HISTORY: Excess smoker stopped 3 to 4 years ago, used to smoke a pack a day. Denies any history of alcohol use. Denies any substance abuse. CURRENT MEDICATION: The patient is taking at home; albuterol inhaler, Aldactone, potassium chloride, magnesium, aspirin, Percocet, Prozac, Lasix 40 mg daily, Pepcid 40 mg daily, vitamin D3 1000 units, pregabalin, Lyrica 25 mg p.o. at bedtime, Synthroid 100 mcg daily, atorvastatin 10 mg daily, and Xanax 0.25 mg p.o. three times a day. ALLERGIES: ALLERGY TO LEVAQUIN. ALLERGY TO CEFTRIAXONE. REVIEW OF SYSTEMS: As per HPI. PHYSICAL EXAMINATION: GENERAL: Height of the patient is 5 feet 1 inch. Weight of the patient 165 pounds. Body mass index 31.2 kg/m2. VITAL SIGNS: Temperature afebrile. Heart rate 98 and blood pressure 105/63. HEENT: PERRLA. Extraocular muscles intact. NECK: Supple. No carotid bruits or thyromegaly. CHEST: Clear to auscultation. Very severe tenderness in the front of the chest. ABDOMEN: Soft. EXTREMITIES: Clubbing and cyanosis negative. LABORATORY DATA: Blood workup; WBC 7.5, hemoglobin 11.5, hematocrit 36.4, and platelet count 305. Chemistry shows sodium 130, potassium 4.0, chloride 93, carbon dioxide 33, anion gap of 4, BUN 20, creatinine 1.1. Troponin first 0.01 negative. EKG showed underlying normal sinus. IMPRESSION: A 77-year-old female with a past medical history significant for chronic obstructive pulmonary disease, mild pulmonary hypertension, status post cardiac catheterization last year with normal coronaries and elevated right atrial pressure, history of chronic obstructive pulmonary disease atypical, admitted with atypical chest front side tenderness. RECOMMENDATION: Agree to repeat another set of troponin. If troponin remains negative, we can discontinue telemetry, aggressive treat medical. We will also add on some Ibuprofen because of reproducible chest pain. We will follow with you. Doubt that this is an VA or ischemic chest pain, but we will follow and further recommendations made by after the troponin is in. Thank you Dr. Candelario for providing us the opportunity in taking care of the patient, Cinthya Kimball. Jefferson Levine MD
[2018-06-27] MEDS: Oxycodone/Acetaminophen 10/325 mg Tab PO PRN ×2 (02:47→18:27)
[2018-06-27 04:56] LABS: URINE BILIRUBIN NEGATIVE (NEGATIVE); URINE BLOOD SMALL (NEGATIVE); URINE GLUCOSE (UA) NEGATIVE (NEGATIVE); URINE LEUKOCYTE ESTERASE NEGATIVE Leu/uL (NEGATIVE); URINE PROTEIN NEGATIVE mg/dL (<30 mg/dL); URINE UROBILINOGEN 0.2 E.U./dL (<1 E.U./dL)
[2018-06-27 05:03] LABS: URINE APPEARANCE CLEAR (CLEAR); URINE COLOR LIGHT YELLOW (YELLOW)
[2018-06-27 06:45] LABS: URINE BACTERIA OCC /hpf; URINE WBC 0 - 2 /hpf (0-6)
[2018-06-27 08:37] LABS: EOS # 0.3 (0.0-0.7); EOS % 4.4 % (1.5-5.0); HEMOGLOBIN 10.7 g/dL (12.0-16.0); LYMPH % 33.1 % (22.0-35.0); MEAN CELL VOLUME 98.3 fl (80.0-105.0); MEAN CORPUSCULAR HEMOGLOBIN 30.9 pg (25.0-35.0); MEAN CORPUSCULAR HGB CONC 31.5 g/dl (31.0-37.0); MEAN PLATELET VOLUME 9.6 fl (7.0-11.0); MONO # 0.7 (0.1-0.6); MONO % 11.6 % (1.0-6.0); RBC 3.46 10^6/uL (3.5-6.1); RED CELL DISTRIBUTION WIDTH 14.8 % (11.5-14.5); WHITE BLOOD COUNT 6.1 10^3/uL (4.5-11.0)
[2018-06-27 08:43] LABS: ALB/GLOB RATIO 1.2 (1.1-1.8); ALBUMIN 3.6 g/dL (3.0-4.8); CALCIUM 9.7 mg/dL (8.4-10.5)
--- NOTE | 2018-06-27 10:09 | CP.PCM.PN ---
<Bruce Cook - Last Filed: 06/27/18 10:02> Subjective - Date & Time of Evaluation Date of Evaluation: 06/27/18 Time of Evaluation: 10:02 - Subjective Subjective: Podiatry consult note for Dr. Talbert: 77 y/o female patient seen and evaluated at the bedside 1 day S/P I&D of the left big toe ingrowing infected toe nail. Patient states that she didn't have any pain in her left big toe since yesterday. She denies any overnight acute complaints of fever, chills, headache, dizziness, chest pain, SOB, cough. She denies any other pedal complaint at this time Objective - Vital Signs/Intake and Output Vital Signs (last 24 hours): Temp Pulse Resp BP Pulse Ox 97.4 F L 71 20 117/70 98 06/27/18 06:00 06/27/18 06:00 06/27/18 06:00 06/27/18 06:00 06/27/18 06:00 Intake and Output: 06/27/18 06/27/18 06:59 18:59 Intake Total 240 Output Total 1100 Balance -860 - Medications Medications: Current Medications Albuterol/Ipratropium (Duoneb 3 Mg/0.5 Mg (3 Ml) Ud) 3 ml IH Q4H PRN PRN Reason: Shortness of Breath Last Admin: 06/26/18 13:36 Dose: 3 ml Aspirin (Ecotrin) 81 mg PO DAILY [facility] Last Admin: 06/26/18 09:25 Dose: 81 mg Atorvastatin Calcium (Lipitor) 10 mg PO DIN [facility] Last Admin: 06/26/18 18:07 Dose: 10 mg Fluoxetine HCl (Prozac) 10 mg PO DAILY [facility] Last Admin: 06/26/18 09:25 Dose: 10 mg Furosemide (Lasix) 40 mg IVP BID [facility] Last Admin: 06/26/18 18:07 Dose: 40 mg Levothyroxine Sodium (Synthroid) 100 mcg PO DAILY [facility] Last Admin: 06/26/18 09:24 Dose: 100 mcg Magnesium Oxide (Mag-Ox) 400 mg PO DAILY [facility] Last Admin: 06/26/18 09:25 Dose: 400 mg Mupirocin (Bactroban Ointment) 1 gm TOP BID [facility] Last Admin: 06/26/18 18:07 Dose: 1 applic Oxycodone/Acetaminophen (Percocet 10/325 Mg Tab) 1 tab PO Q4H PRN PRN Reason: Pain, moderate (4-7) Last Admin: 06/27/18 02:47 Dose: 1 tab Potassium Chloride (K-Dur 20 Meq Er Tab) 20 meq PO DAILY [facility] Last Admin: 06/26/18 09:25 Dose: 20 meq Pregabalin (Lyrica) 25 mg PO HS [facility] Last Admin: 06/26/18 22:31 Dose: 25 mg Spironolactone (Aldactone) 50 mg PO DAILY [facility] Last Admin: 06/26/18 10:00 Dose: 50 mg - Labs Labs: 06/27/18 08:19 06/27/18 08:19 PT 12.0 SECONDS (9.4-12.5) 06/26/18 00:18 INR 1.08 06/26/18 00:18 APTT 35.1 Seconds (26.9-38.3) 06/26/18 00:18 - Constitutional Appears: Well, Non-toxic, No Acute Distress - Head Exam Head Exam: ATRAUMATIC, NORMOCEPHALIC - Extremities Exam Additional comments: B/L lower extremity focused exam: Vascular: DP/PT non palpable due to edema, Cap refill < 3 seconds, Temp gradient warm to cool from proximal to distal, +2 pitting extending up to the knees edema appreciated to b/l extremities. erythema noted on the left hallux and bilateral legs. Neuro: Gross sensation intact, protective sensation diminished. Derm: A small open wound at the medial nail fold with mild erythema of the left hallux. Minimal serous drainage expressed on squeezing the left hallux medial nail fold. Mild erythema of bilateral legs noted, dystrophic and thickened left hallux toe nail noted. MSK:Tenderness to palpation of left medial hallux nail fold, Muscle power intact 5/5 to plantar flexors of the ankle, 4/5 in all other groups. - Neurological Exam Neurological Exam: Alert, Awake Assessment and Plan - Assessment and Plan (Free Text) Assessment: 77 y/o female patient seen and evaluated at the bedside 1 day S/P I&D of the left big toe ingrowing infected toe nail. Plan: Patient seen and evaluated with DR. Talbert Discussed in detail with Dr. Talbert Charts, labs and vitals reviewed; Afebrile, WBC 6.1 Wound culture: pending. Right hallux cleaned with saline and dressed with xeroform and Mepilex. Bactroban to be added to the dressing starting tomorrow. Left foot 3 views X-ray: Normal left foot radiograph. PAWAN/PVR LE: Normal PAWAN PVR at rest. Thank you for the consult Podiatry will follow up the patient while in house. <Gael Talbert - Last Filed: 06/30/18 08:11> Objective - Vital Signs/Intake and Output Vital Signs (last 24 hours): Temp Pulse Resp BP Pulse Ox 98.1 F 82 20 119/65 94 L 06/30/18 08:02 06/30/18 08:02 06/30/18 08:02 06/30/18 08:02 06/30/18 08:02 Intake and Output: 06/30/18 06/30/18 06:59 18:59 Intake Total 900 Output Total 100 Balance 800 - Medications Medications: Current Medications Aspirin (Ecotrin) 81 mg PO DAILY [facility] Last Admin: 06/29/18 09:16 Dose: 81 mg Atorvastatin Calcium (Lipitor) 10 mg PO DIN [facility] Last Admin: 06/29/18 19:49 Dose: 10 mg Fluoxetine HCl (Prozac) 10 mg PO DAILY [facility] Last Admin: 06/29/18 09:15 Dose: 10 mg Furosemide (Lasix) 40 mg PO 0800,1400 [facility] Levothyroxine Sodium (Synthroid) 100 mcg PO DAILY [facility] Last Admin: 06/29/18 09:15 Dose: 100 mcg Magnesium Oxide (Mag-Ox) 400 mg PO DAILY [facility] Last Admin: 06/29/18 09:16 Dose: 400 mg Mupirocin (Bactroban Ointment) 1 gm TOP BID [facility] Last Admin: 06/29/18 19:24 Dose: 1 applic Oxycodone/Acetaminophen (Percocet 10/325 Mg Tab) 1 tab PO Q4H PRN PRN Reason: Pain, moderate (4-7) Last Admin: 06/29/18 19:49 Dose: 1 tab Potassium Chloride (K-Dur 20 Meq Er Tab) 20 meq PO DAILY [facility] Last Admin: 06/29/18 09:15 Dose: 20 meq Pregabalin (Lyrica) 25 mg PO HS [facility] Last Admin: 06/29/18 22:09 Dose: 25 mg Spironolactone (Aldactone) 50 mg PO DAILY [facility] Last Admin: 06/29/18 09:15 Dose: 50 mg - Labs Labs: 06/29/18 18:27 06/30/18 06:20 PT 12.0 SECONDS (9.4-12.5) 06/26/18 00:18 INR 1.08 06/26/18 00:18 APTT 35.1 Seconds (26.9-38.3) 06/26/18 00:18 Attending/Attestation - Attestation I have personally seen and examined this patient.: Yes I have fully participated in the care of the patient.: Yes I have reviewed all pertinent clinical information, including history, physical exam and plan: Yes
[2018-06-27] MEDS ORDERED: metOLazone 5 MG TAB PO ONE (10:16)
[2018-06-27] MEDS: Potassium Chloride 20 mEq ER Tab PO SCH (10:19)
[2018-06-27] MEDS: Magnesium Oxide 400 mg Tab UD PO SCH (10:19)
[2018-06-27] MEDS: Levothyroxine 100 MCG TAB PO SCH (10:19)
[2018-06-27] MEDS: Mupirocin 2% Ointment 15 GM TUBE TOP SCH ×3 (10:22→18:18)
--- NOTE | 2018-06-27 11:17 | PN ---
DATE: 06/27/2018 SUBJECTIVE: The patient has no complaints of any chest pain. No shortness of breath. She is much more awake and alert this morning. PHYSICAL EXAMINATION: VITAL SIGNS: Temperature is 97.4, pulse is 71, blood pressure 117/70 and respirations 20. GENERAL: The patient is lying in bed, flat, comfortable. HEENT: No oral lesion. Anicteric sclerae. Moist mucosa. NECK: No JVD, adenopathy, or thyromegaly. CARDIOVASCULAR: S1 and S2, regular. No murmurs, rubs, or gallops. LUNGS: Clear to auscultation bilaterally. No wheeze, rales, or rhonchi. ABDOMEN: Bowel sounds are positive, soft, nontender and nondistended. EXTREMITIES: Lower extremity 1+edema. LABORATORY DATA: White count of 6.1 and hemoglobin 10.7. Creatinine is 1.1. CT of the lumbar spine shows vertebroplasty at L1, no acute findings. Lower extremity arterial Doppler show normal PAWAN. Foot x-ray done shows the left foot radiographs are normal. ASSESSMENT: 1. Left toe infection. 2. Acute congestive heart failure secondary to diastolic dysfunction. 3. Lower extremity edema. 4. Aortic regurgitation. 5. Hypothyroidism. 6. Chronic obstructive pulmonary disease. 7. Dyslipidemia. 8. Coronary artery disease. 9. L1 vertebral fracture, status post kyphoplasty. PLAN: The patient is on spirolactone. The patient is on aspirin daily. Was given potassium to prevent the hypokalemia. The patient is on Lipitor for dyslipidemia. She is on magnesium replacement. She is receiving Prozac. She is on Synthroid for hypothyroidism. I did give her dose of metolazone yesterday. The patient will get another dose of metolazone to help with her swelling. Gregory Estrada MD
--- NOTE | 2018-06-27 19:21 | CON ---
DATE: 06/27/2018 LOCATION: The patient was seen in Room 363, bed 1 earlier today. CHIEF COMPLAINT: Chest pain and shortness of breath from stays of several days. HISTORY OF PRESENT ILLNESS: This is a 77-year-old female with chronic obstructive lung disease, congestive heart failure with an ejection fraction of 60%, hyperthyroidism and history of pancreatitis, depression and colon polyps and GERD who is admitted with chest pain, however, found to have a left big toe ulcer with pus and an Infectious Disease consultation requested. REVIEW OF SYSTEMS: Reveals the 12-point review of systems was performed. No fevers. No chills. No nausea. No vomiting. No chest pain. PAST MEDICAL HISTORY: Significant for COPD, diastolic congestive heart failure, hyperthyroidism, pancreatitis, depression, colon polyps, GERD, and diverticulitis. PAST SURGICAL HISTORY: Significant for pacemaker in the year 1999. The patient had right knee surgery and cardiac catheterization. Cardiac catheterization showed normal coronaries. The patient also had a right knee surgery. ALLERGIES: THE PATIENT IS ALLERGIC TO LEVAQUIN, WHICH SHE GIVES HER ANAPHYLAXIS AND CEFTRIAXONE, WHICH GIVES HER RASH. HOME MEDICATIONS: Medications at home include the patient to be on Synthroid, Lipitor, Xanax, Lasix, Prozac, and Ecotrin. PHYSICAL EXAMINATION VITAL SIGNS: Temperature is 98, blood pressure is 117/70, respiratory rate 20, and heart rate of 76. HEENT: Unremarkable. NECK: Supple. LUNGS: Decreased breath sounds. HEART: Normal S1 and S2. ABDOMEN: Soft and nontender. EXTREMITIES: Left big toe reveals no pus there, however, there is a mild abnormality at the tip of the left toe where the nail is present. LABORATORY DATA: Reveals a white count of 7.4, hemoglobin of 11 and platelets of 305. Sed rate is 82. Coagulation is noted. Chemistries are reviewed, to be with a creatinine of 1.1, CK is 29, and urinalysis is unremarkable. Microbiology is pending. Microbiology from previous admission reveals the blood cultures are negative. A CAT scan of the lumbar spine reveals the patient to have unremarkable, previous vertebroplasty is noted at L1, and no acute compression fractures. The patient's x-ray of the left foot is negative. The patient's PAWAN's are normal. EKG shows 437 QTC. The patient is also on Prozac and Dr. Bruce Cook's note is reviewed. ASSESSMENT AND PLAN: This is a 77-year-old who is admitted with chest pain, workup in progress, found to have a left big toe ingrown nail, questionable pus. At this time, we will hold off on any antibiotics, pending further imaging and culture results and limited use of Prozac also. We will make further recommendations upon availability and discussion with Podiatry. Macho Mark MD
[2018-06-28] MEDS: Albuterol-Ipratrop 3 mg / 0.5 (3 ml) UD IH PRN (09:09)
[2018-06-28] MEDS: Levothyroxine 100 MCG TAB PO SCH (09:15)
[2018-06-28] MEDS: Magnesium Oxide 400 mg Tab UD PO SCH (09:15)
[2018-06-28] MEDS: Potassium Chloride 20 mEq ER Tab PO SCH (09:15)
[2018-06-28] MEDS: Oxycodone/Acetaminophen 10/325 mg Tab PO PRN (09:16)
[2018-06-28] MEDS: Mupirocin 2% Ointment 15 GM TUBE TOP SCH ×2 (09:17→18:23)
--- NOTE | 2018-06-28 10:35 | CP.PCM.PN ---
<Bruce Cook - Last Filed: 06/28/18 10:32> Subjective - Date & Time of Evaluation Date of Evaluation: 06/28/18 Time of Evaluation: 10:32 - Subjective Subjective: Podiatry progress note for Dr. Talbert: 77 y/o female patient seen and evaluated at the bedside 2 days S/P I&D of the left big toe ingrowing infected nail. Patient states that she started yesterday to have pain again in her left big toe. She denies any overnight acute complaints of fever, chills, headache, dizziness, chest pain, SOB, cough. She denies any other pedal complaint at this time Objective - Vital Signs/Intake and Output Vital Signs (last 24 hours): Temp Pulse Resp BP Pulse Ox 97.8 F 79 20 112/73 98 06/28/18 06:00 06/28/18 06:00 06/28/18 06:00 06/28/18 09:17 06/28/18 06:00 Intake and Output: 06/28/18 06/28/18 06:59 18:59 Intake Total 1080 Output Total 1700 Balance -620 - Medications Medications: Current Medications Aspirin (Ecotrin) 81 mg PO DAILY [facility] Last Admin: 06/28/18 09:16 Dose: 81 mg Atorvastatin Calcium (Lipitor) 10 mg PO DIN [facility] Last Admin: 06/27/18 18:17 Dose: 10 mg Fluoxetine HCl (Prozac) 10 mg PO DAILY [facility] Last Admin: 06/28/18 09:15 Dose: 10 mg Furosemide (Lasix) 40 mg IVP BID [facility] Last Admin: 06/28/18 09:17 Dose: 40 mg Daptomycin 450 mg/ Sodium (Chloride) 100 mls @ 200 mls/hr IV Q24H [facility]; Protocol Stop: 07/02/18 18:46 Last Admin: 06/27/18 20:39 Dose: 200 mls/hr Levothyroxine Sodium (Synthroid) 100 mcg PO DAILY [facility] Last Admin: 06/28/18 09:15 Dose: 100 mcg Magnesium Oxide (Mag-Ox) 400 mg PO DAILY [facility] Last Admin: 06/28/18 09:15 Dose: 400 mg Mupirocin (Bactroban Ointment) 1 gm TOP BID [facility] Last Admin: 06/28/18 09:17 Dose: Not Given Oxycodone/Acetaminophen (Percocet 10/325 Mg Tab) 1 tab PO Q4H PRN PRN Reason: Pain, moderate (4-7) Last Admin: 06/28/18 09:16 Dose: 1 tab Potassium Chloride (K-Dur 20 Meq Er Tab) 20 meq PO DAILY [facility] Last Admin: 06/28/18 09:15 Dose: 20 meq Pregabalin (Lyrica) 25 mg PO HS [facility] Last Admin: 06/27/18 21:55 Dose: 25 mg Spironolactone (Aldactone) 50 mg PO DAILY [facility] Last Admin: 06/28/18 09:15 Dose: 50 mg - Labs Labs: 06/27/18 08:19 06/27/18 08:19 PT 12.0 SECONDS (9.4-12.5) 06/26/18 00:18 INR 1.08 06/26/18 00:18 APTT 35.1 Seconds (26.9-38.3) 06/26/18 00:18 - Constitutional Appears: Well, Non-toxic, No Acute Distress - Head Exam Head Exam: ATRAUMATIC, NORMOCEPHALIC - Extremities Exam Additional comments: B/L lower extremity focused exam: Vascular: DP/PT non palpable due to edema, Cap refill < 3 seconds, Temp gradient warm to cool from proximal to distal, +1 pitting extending up to the knees edema appreciated to b/l extremities left>right. Mild erythema noted on the left hallu x and bilateral legs. Neuro: Gross sensation intact, protective sensation diminished. Derm: A small open wound at the medial nail fold with mild erythema of the left hallux. No drainage expressed on squeezing the left hallux medial nail fold. Mild erythema of bilateral legs noted, dystrophic and thickened left hallux toe nail noted. MSK:Tenderness to palpation of left medial hallux nail fold, Muscle power intact 5/5 to plantar flexors of the ankle, 4/5 in all other groups. - Neurological Exam Neurological Exam: Alert, Awake Assessment and Plan - Assessment and Plan (Free Text) Assessment: 77 y/o female patient seen and evaluated at the bedside 2 days S/P I&D of the left big toe ingrowing infected toe nail. Plan: Patient seen and evaluated with DR. Talbert Discussed in detail with Dr. Talbert Charts, labs and vitals reviewed; Afebrile, WBC 6.1 (06/27) Wound culture: Staph species. Right hallux cleaned with saline and dressed with bactroban and Mepilex. Left foot 3 views X-ray: Normal left foot radiograph. PAWAN/PVR LE: Normal PAWAN PVR at rest. Podiatry will continue to follow up the patient while in house. <Gael Talbert - Last Filed: 06/30/18 08:10> Objective - Vital Signs/Intake and Output Vital Signs (last 24 hours): Temp Pulse Resp BP Pulse Ox 98.1 F 82 20 119/65 94 L 06/30/18 08:02 06/30/18 08:02 06/30/18 08:02 06/30/18 08:02 06/30/18 08:02 Intake and Output: 06/30/18 06/30/18 06:59 18:59 Intake Total 900 Output Total 100 Balance 800 - Medications Medications: Current Medications Aspirin (Ecotrin) 81 mg PO DAILY [facility] Last Admin: 06/29/18 09:16 Dose: 81 mg Atorvastatin Calcium (Lipitor) 10 mg PO DIN [facility] Last Admin: 06/29/18 19:49 Dose: 10 mg Fluoxetine HCl (Prozac) 10 mg PO DAILY [facility] Last Admin: 06/29/18 09:15 Dose: 10 mg Furosemide (Lasix) 40 mg PO 0800,1400 [facility] Levothyroxine Sodium (Synthroid) 100 mcg PO DAILY [facility] Last Admin: 06/29/18 09:15 Dose: 100 mcg Magnesium Oxide (Mag-Ox) 400 mg PO DAILY [facility] Last Admin: 06/29/18 09:16 Dose: 400 mg Mupirocin (Bactroban Ointment) 1 gm TOP BID [facility] Last Admin: 06/29/18 19:24 Dose: 1 applic Oxycodone/Acetaminophen (Percocet 10/325 Mg Tab) 1 tab PO Q4H PRN PRN Reason: Pain, moderate (4-7) Last Admin: 06/29/18 19:49 Dose: 1 tab Potassium Chloride (K-Dur 20 Meq Er Tab) 20 meq PO DAILY [facility] Last Admin: 06/29/18 09:15 Dose: 20 meq Pregabalin (Lyrica) 25 mg PO HS [facility] Last Admin: 06/29/18 22:09 Dose: 25 mg Spironolactone (Aldactone) 50 mg PO DAILY [facility] Last Admin: 06/29/18 09:15 Dose: 50 mg - Labs Labs: 06/29/18 18:27 06/30/18 06:20 PT 12.0 SECONDS (9.4-12.5) 06/26/18 00:18 INR 1.08 06/26/18 00:18 APTT 35.1 Seconds (26.9-38.3) 06/26/18 00:18 Attending/Attestation - Attestation I have personally seen and examined this patient.: Yes I have fully participated in the care of the patient.: Yes I have reviewed all pertinent clinical information, including history, physical exam and plan: Yes
--- NOTE | 2018-06-28 16:06 | PN ---
DATE: 06/28/2018 SUBJECTIVE: . PHYSICAL EXAMINATION: VITAL SIGNS: The patient's temperature is 98, blood pressure is 109/70, respiratory rate of 20, heart rate of 75. HEENT: Unremarkable. NECK: Supple. LUNGS: Have decreased breath sounds. HEART: Normal S1, S2. ABDOMEN: Soft, nontender. LABORATORY EXAMINATION: Reveals a white count of 7.4, hemoglobin of 11, platelets of 305. Chemistries are BUN of 20, creatinine of 1.1. The toe culture is staph. It is unclear if it is coag-negative or coag-positive further identification sensitivity is pending. ASSESSMENT AND PLAN: This is a 78-year-old female who seen earlier in 363, bed 2 who has admitted with chest pain, found to have a left big toe ingrown nail with pus with staph now from the wound culture should have MRI if possible to rule out osteomyelitis. Should have ABIs to rule out underlying vascular disease. Awaiting for identification sensitivity of the staph and this patient who is ALLERGIC TO CEFTRIAXONE AND LEVAQUIN, who was on antidepressants unable to use penicillin, unable to use linezolid. The patient has diastolic congestive heart failure, depression, colon polyps, gastroesophageal reflux disease, hyperthyroidism and chronic obstructive lung disease and congestive heart failure. Currently on daptomycin rule out underlying osteomyelitis and peripheral arterial disease and with limited options as far as antibiotics, pending identification sensitivity organism and given multiple allergies and renal disease also. We will follow with you. Macho Mark MD
[2018-06-28] MEDS ORDERED: metOLazone 5 MG TAB PO ONE (16:50)
--- NOTE | 2018-06-28 20:06 | PN ---
DATE: 06/28/2018 SUBJECTIVE: The patient is 77 years old. Seen and examined. Lying in bed. Seems to be comfortable. States "my legs are hurting." According to nurse, she is eating well. No nausea or vomiting noted. Complains of generalized weakness. PHYSICAL EXAMINATION: VITAL SIGNS: She is afebrile, pulse 79, respiration 20, and blood pressure 112/73. LUNGS: Bilateral clear airflow. No rhonchi or crackles. HEART: S1 and S2 audible. ABDOMEN: Soft, nontender. No rebound. No guarding. NEUROLOGIC: The patient is awake and alert, able to communicate. EXTREMITIES: Bilateral legs, mild erythema. LABORATORY EXAMINATION: There is no new lab available today. Toe bone growing Staphylococcus coag negative. Lumbar spine CT shows vertebroplasty at L1. No acute compression noted. ASSESSMENT: 1. Left big toe abscess, status post incision and drainage. 2. Bilateral mild leg cellulitis. 3. Congestive heart failure, acute on chronic. 4. Hypothyroidism. 5. Chronic obstructive pulmonary disease. 6. Hyperlipidemia. 7. Coronary artery disease. 8. History of lumbar vertebral fracture, status post kyphoplasty. PLAN: The patient has been started on daptomycin. We will continue that. She is on aspirin. She is on Lasix 40 mg twice a day. She is on spironolactone. She is on Lyrica for neuropathy. She is getting analgesic in the form of Percocet. She is on levothyroxine. We will continue that. We will monitor her electrolyte intermittently. We will request for physical therapy evaluation. Dima Bear MD
[2018-06-29 06:57] LABS: HEMOGLOBIN 12.2 g/dL (12.0-16.0); MEAN CORPUSCULAR HEMOGLOBIN 30.4 pg (25.0-35.0); MEAN CORPUSCULAR HGB CONC 31.7 g/dl (31.0-37.0); MEAN PLATELET VOLUME 9.9 fl (7.0-11.0); RBC 4.01 10^6/uL (3.5-6.1); RED CELL DISTRIBUTION WIDTH 14.1 % (11.5-14.5); WHITE BLOOD COUNT 9.5 10^3/uL (4.5-11.0)
--- NOTE | 2018-06-29 06:58 | CP.PCM.PN ---
<Edelmira Munroe - Last Filed: 06/29/18 14:23> Subjective - Date & Time of Evaluation Date of Evaluation: 06/29/18 Time of Evaluation: 06:58 - Subjective Subjective: Edelmira Munroe, PGY2, Medicine Progress Note for Dr Estrada: Patient seen and examined at bedside. No acute events overnight. Patient reports improved leg swelling and pain. Denies fevers, chills, nausea, vomiting, abdominal pain, diarrhea, constipation. Reports decreased appetite. Objective - Vital Signs/Intake and Output Vital Signs (last 24 hours): Temp Pulse Resp BP Pulse Ox 98.2 F 72 18 110/70 98 06/28/18 17:09 06/28/18 17:09 06/28/18 17:09 06/28/18 18:14 06/28/18 17:09 Intake and Output: 06/28/18 06/29/18 18:59 06:59 Intake Total 540 Output Total 300 Balance 240 - Medications Medications: Current Medications Aspirin (Ecotrin) 81 mg PO DAILY [facility] Last Admin: 06/28/18 09:16 Dose: 81 mg Atorvastatin Calcium (Lipitor) 10 mg PO DIN [facility] Last Admin: 06/28/18 18:13 Dose: 10 mg Fluoxetine HCl (Prozac) 10 mg PO DAILY [facility] Last Admin: 06/28/18 09:15 Dose: 10 mg Furosemide (Lasix) 40 mg IVP BID [facility] Last Admin: 06/28/18 18:14 Dose: 40 mg Daptomycin 450 mg/ Sodium (Chloride) 100 mls @ 200 mls/hr IV Q24H [facility]; Protocol Stop: 07/02/18 18:46 Last Admin: 06/28/18 18:40 Dose: 200 mls/hr Levothyroxine Sodium (Synthroid) 100 mcg PO DAILY [facility] Last Admin: 06/28/18 09:15 Dose: 100 mcg Magnesium Oxide (Mag-Ox) 400 mg PO DAILY [facility] Last Admin: 06/28/18 09:15 Dose: 400 mg Mupirocin (Bactroban Ointment) 1 gm TOP BID [facility] Last Admin: 06/28/18 18:23 Dose: 1 applic Oxycodone/Acetaminophen (Percocet 10/325 Mg Tab) 1 tab PO Q4H PRN PRN Reason: Pain, moderate (4-7) Last Admin: 06/28/18 09:16 Dose: 1 tab Potassium Chloride (K-Dur 20 Meq Er Tab) 20 meq PO DAILY [facility] Last Admin: 06/28/18 09:15 Dose: 20 meq Pregabalin (Lyrica) 25 mg PO HS [facility] Last Admin: 06/28/18 21:46 Dose: 25 mg Spironolactone (Aldactone) 50 mg PO DAILY [facility] Last Admin: 06/28/18 09:15 Dose: 50 mg - Labs Labs: 06/27/18 08:19 06/27/18 08:19 PT 12.0 SECONDS (9.4-12.5) 06/26/18 00:18 INR 1.08 06/26/18 00:18 APTT 35.1 Seconds (26.9-38.3) 06/26/18 00:18 - Constitutional Appears: Non-toxic, No Acute Distress - Head Exam Head Exam: ATRAUMATIC, NORMOCEPHALIC - Eye Exam Eye Exam: EOMI, PERRL. absent: Conjunctival injection, Nystagmus, Periorbital tenderness, Scleral icterus Pupil Exam: NORMAL ACCOMODATION, PERRL. absent: Irregular, Miosis, Mydriatic, Unequal - ENT Exam ENT Exam: Mucous Membranes Moist - Neck Exam Neck Exam: Full ROM - Respiratory Exam Respiratory Exam: Clear to Ausculation Bilateral, NORMAL BREATHING PATTERN. absent: Accessory Muscle Use, Chest Wall Tenderness, Respiratory Distress, Stridor - Cardiovascular Exam Cardiovascular Exam: RRR, +S1, +S2. absent: Murmur - GI/Abdominal Exam GI & Abdominal Exam: Soft, Normal Bowel Sounds. absent: Firm, Guarding, Rigid, Tenderness, Mass, Organomegaly - Extremities Exam Extremities Exam: absent: Calf Tenderness, Pedal Edema Additional comments: + bilateral leg mild redness, warmth. No drainage. Left big toe covered in dressing, c/d/i. - Back Exam Back Exam: NORMAL INSPECTION - Neurological Exam Neurological Exam: Alert, Awake, Oriented x3 - Psychiatric Exam Psychiatric exam: Normal Affect, Normal Mood - Skin Skin Exam: Dry, Normal Color, Warm Assessment and Plan - Assessment and Plan (Free Text) Assessment: 1. Left big toe abscess, s/p I&D 2. Bilateral leg cellulitis, improving 3. Acute on chronic CHF 4. hypothyroidism 5. COPD 6. HLD 7. CAD Patient is currently on IV Daptomycin, as per ID. She is s/p I&D, growing coag neg Staph tinajero-sensitive (*Resistant to erythromycin only). Arterial duplex study showed normal PAWAN/PVR. Left foot xray was normal, ESR elevated at 82, will obtain CAT scan of left foot to rule out osteomyelitis. Continue with percocet prn pain. Continue with ASA 81 mg, lipitor, lasix 40mg IV BID. Will give k dur replacement. Will continue with lyrica. Will give megace to increase appetite. Podiatry, ID are following for left big toe abscess/cellulitis. Cardio Dr Levine is following patient for chf exacerbation. Physical therapy recommends subacute rehab, will obtain TCU evaluation. Case reviewed and discussed with attending, Dr Estrada. <Gregory Estrada S - Last Filed: 06/29/18 17:04> Objective - Vital Signs/Intake and Output Vital Signs (last 24 hours): Temp Pulse Resp BP Pulse Ox 97.8 F 98 H 20 118/62 96 06/29/18 08:09 06/29/18 08:09 06/29/18 08:09 06/29/18 09:14 06/29/18 08:09 Intake and Output: 06/29/18 06/29/18 06:59 18:59 Intake Total 540 Output Total 300 Balance 240 - Medications Medications: Current Medications Aspirin (Ecotrin) 81 mg PO DAILY [facility] Last Admin: 06/29/18 09:16 Dose: 81 mg Atorvastatin Calcium (Lipitor) 10 mg PO DIN [facility] Last Admin: 06/28/18 18:13 Dose: 10 mg Fluoxetine HCl (Prozac) 10 mg PO DAILY [facility] Last Admin: 06/29/18 09:15 Dose: 10 mg Furosemide (Lasix) 40 mg IVP BID [facility] Stop: 06/29/18 23:59 Last Admin: 06/29/18 09:14 Dose: 40 mg Furosemide (Lasix) 40 mg PO 0800,1400 [facility] Daptomycin 450 mg/ Sodium (Chloride) 100 mls @ 200 mls/hr IV Q24H [facility]; Protocol Stop: 07/02/18 18:46 Last Admin: 06/28/18 18:40 Dose: 200 mls/hr Ibuprofen (Motrin Tab) 400 mg PO Q6H [facility] Stop: 03/04/19 23:16 Last Admin: 06/29/18 11:18 Dose: 400 mg Levothyroxine Sodium (Synthroid) 100 mcg PO DAILY [facility] Last Admin: 06/29/18 09:15 Dose: 100 mcg Magnesium Oxide (Mag-Ox) 400 mg PO DAILY [facility] Last Admin: 06/29/18 09:16 Dose: 400 mg Megestrol Acetate (Megace) 400 mg PO DAILY [facility] Mupirocin (Bactroban Ointment) 1 gm TOP BID [facility] Last Admin: 06/29/18 11:03 Dose: 1 applic Oxycodone/Acetaminophen (Percocet 10/325 Mg Tab) 1 tab PO Q4H PRN PRN Reason: Pain, moderate (4-7) Last Admin: 06/29/18 09:19 Dose: 1 tab Potassium Chloride (K-Dur 20 Meq Er Tab) 20 meq PO DAILY [facility] Last Admin: 06/29/18 09:15 Dose: 20 meq Pregabalin (Lyrica) 25 mg PO HS [facility] Last Admin: 06/28/18 21:46 Dose: 25 mg Spironolactone (Aldactone) 50 mg PO DAILY [facility] Last Admin: 06/29/18 09:15 Dose: 50 mg - Labs Labs: 06/29/18 06:00 06/29/18 06:00 PT 12.0 SECONDS (9.4-12.5) 06/26/18 00:18 INR 1.08 06/26/18 00:18 APTT 35.1 Seconds (26.9-38.3) 06/26/18 00:18 Assessment and Plan - Assessment and Plan (Free Text) Assessment: Pt seen and examined by me. I have reviewed the note of the medical imaging technician and I agree with it. I have discussed the assessment and plan with the resident. I have reviewed the medications and the last labs.
[2018-06-29 07:45] LABS: ALB/GLOB RATIO 1.2 (1.1-1.8); ALBUMIN 4.1 g/dL (3.0-4.8); ALT/SGPT < 6 U/L (7-56); AST/SGOT 30 U/L (14-36); BLOOD UREA NITROGEN 23 mg/dL (7-21); CALCIUM 10.5 mg/dL (8.4-10.5); GFR NON-AFRICAN AMERICAN 54
[2018-06-29] MEDS: Potassium Chloride 20 mEq ER Tab PO SCH (09:15)
[2018-06-29] MEDS: Levothyroxine 100 MCG TAB PO SCH (09:15)
[2018-06-29] MEDS: Magnesium Oxide 400 mg Tab UD PO SCH (09:16)
[2018-06-29] MEDS: Oxycodone/Acetaminophen 10/325 mg Tab PO PRN ×2 (09:19→19:49)
[2018-06-29] MEDS: Mupirocin 2% Ointment 15 GM TUBE TOP SCH ×2 (11:03→19:24)
--- NOTE | 2018-06-29 12:03 | CP.PCM.PN ---
Subjective - Date & Time of Evaluation Date of Evaluation: 06/29/18 Time of Evaluation: 12:00 - Subjective Subjective: Podiatry progress note: Dr. Callahan 77 year old female patient seen and evaluated this morning 3 days s/p L hallux I&D secondary to paronychia. Patient resting comfortably, in NAD, however reports pain with palpation of her toe during dressing changes. No acute events overnight noted. Denies nausea/vomiting/fever/shortness of breath/chest pain. Objective - Vital Signs/Intake and Output Vital Signs (last 24 hours): Temp Pulse Resp BP Pulse Ox 97.8 F 98 H 20 118/62 96 06/29/18 08:09 06/29/18 08:09 06/29/18 08:09 06/29/18 09:14 06/29/18 08:09 Intake and Output: 06/29/18 06/29/18 06:59 18:59 Intake Total 540 Output Total 300 Balance 240 - Medications Medications: Current Medications Aspirin (Ecotrin) 81 mg PO DAILY [facility] Last Admin: 06/29/18 09:16 Dose: 81 mg Atorvastatin Calcium (Lipitor) 10 mg PO DIN [facility] Last Admin: 06/28/18 18:13 Dose: 10 mg Fluoxetine HCl (Prozac) 10 mg PO DAILY [facility] Last Admin: 06/29/18 09:15 Dose: 10 mg Furosemide (Lasix) 40 mg IVP BID [facility] Stop: 06/29/18 23:59 Last Admin: 06/29/18 09:14 Dose: 40 mg Furosemide (Lasix) 40 mg PO 0800,1400 [facility] Daptomycin 450 mg/ Sodium (Chloride) 100 mls @ 200 mls/hr IV Q24H [facility]; Protocol Stop: 07/02/18 18:46 Last Admin: 06/28/18 18:40 Dose: 200 mls/hr Ibuprofen (Motrin Tab) 400 mg PO Q6H [facility] Stop: 06/29/18 23:16 Last Admin: 06/29/18 11:18 Dose: 400 mg Levothyroxine Sodium (Synthroid) 100 mcg PO DAILY [facility] Last Admin: 06/29/18 09:15 Dose: 100 mcg Magnesium Oxide (Mag-Ox) 400 mg PO DAILY [facility] Last Admin: 06/29/18 09:16 Dose: 400 mg Mupirocin (Bactroban Ointment) 1 gm TOP BID [facility] Last Admin: 06/29/18 11:03 Dose: 1 applic Oxycodone/Acetaminophen (Percocet 10/325 Mg Tab) 1 tab PO Q4H PRN PRN Reason: Pain, moderate (4-7) Last Admin: 06/29/18 09:19 Dose: 1 tab Potassium Chloride (K-Dur 20 Meq Er Tab) 20 meq PO DAILY [facility] Last Admin: 06/29/18 09:15 Dose: 20 meq Pregabalin (Lyrica) 25 mg PO HS [facility] Last Admin: 06/28/18 21:46 Dose: 25 mg Spironolactone (Aldactone) 50 mg PO DAILY [facility] Last Admin: 06/29/18 09:15 Dose: 50 mg - Labs Labs: 06/29/18 06:00 06/29/18 06:00 PT 12.0 SECONDS (9.4-12.5) 06/26/18 00:18 INR 1.08 06/26/18 00:18 APTT 35.1 Seconds (26.9-38.3) 06/26/18 00:18 - Constitutional Appears: Non-toxic, No Acute Distress - Head Exam Head Exam: ATRAUMATIC, NORMOCEPHALIC - Extremities Exam Additional comments: B/L lower extremity focused exam: Vascular: DP/PT faintly palpable, Cap refill < 3 seconds, Temp gradient warm to cool from proximal to distal, +1 pitting extending up to the knees edema appreciated to b/l extremities left>right. Mild erythema noted on the left hallux and anterior aspect of bilateral legs. Ortho: Tenderness to palpation of L hallux medial nail border. Neuro: Gross sensation intact, protective sensation diminished. Derm: A small open wound at the medial nail fold with mild erythema. No drainage, no purulence, no tunneling, no tracking appreciated. - Neurological Exam Neurological Exam: Alert, Awake - Psychiatric Exam Psychiatric exam: Normal Affect Assessment and Plan - Assessment and Plan (Free Text) Assessment: 77 year old female patient 3 days s/p L hallux I&D secondary to paronychia. Plan: Patient seen and evaluated Discussed patient with Dr. Callahan Afebrile, WBC 9.5 Wound culture L toe: Staph species. Local wound care: Hallux cleaned with saline and dressed with bactroban and Mepilex. Left foot 3 views X-ray: Normal left foot radiograph. PAWAN/PVR LE: Normal PAWAN PVR at rest. Will continue to follow while in house
[2018-06-29] MEDS ORDERED: Megestrol Acetate 40 mg/ml Cup PO SCH (13:00)
--- NOTE | 2018-06-29 13:30 | PN ---
DATE: 06/29/2018 REASON FOR CONSULTATION AND FOLLOWUP: Cardiac evaluation, chest pain, shortness of breath, COPD, and tenderness in the chest. The patient denies any chest pain, shortness of breath, any palpitation. PHYSICAL EXAMINATION: GENERAL: The patient is not in any apparent distress but feels very weak. VITAL SIGNS: Temperature afebrile, heart rate 79, blood pressure 118/62. HEENT: PERRLA. Extraocular muscles intact. NECK: Supple. No carotid bruits. No thyromegaly. CHEST: Clear to auscultation. HEART: S1 and S2 regular. ABDOMEN: Soft. EXTREMITIES: Clubbing and cyanosis negative. LABORATORY DATA: Blood workup as follows; WBC 9.5, hemoglobin 12.2, hematocrit 38.5, platelet count 287. Chemistry shows sodium 136, potassium 4, chloride 88, carbon dioxide of 39, anion gap of 14, BUN 23 and creatinine 1. IMPRESSION: A 77-year-old female with past medical history significant for chronic obstructive pulmonary disease with diabetes, hypertension, hyperlipidemia, sick sinus syndrome, status post pacemaker, status post generator change, history of cardiac catheterization dated 06/11/2018. Normal coronaries on left heart cath. Right heart catheterization revealed elevated right-sided pressure and recent echo dated 04/13/2018 revealed ejection fraction 65%, left coronary cusp is calcified. Medical treatment recommended. We find no evidence of acute myocardial infarction, chest pain is more musculoskeletal. Ibuprofen was given and the patient responded well. RECOMMENDATIONS: Continue aggressive medical treatment. We will get physical therapy for rehab. Continue baby aspirin. Continue atorvastatin. Continue Lasix, we will change to p.o. from today. Monitor renal function closely. Continue levothyroxine. We will discontinue IV Lasix today and start Lasix p.o. tomorrow. Also, we will put physical therapy for ambulation. We will give three more doses of ibuprofen for pain. Thank you Sean for providing us the opportunity in taking care of the patient, Cinthya Kimball. Jefferson Levine MD
--- NOTE | 2018-06-29 15:49 | CT ---
Date of service: 06/29/2018 PROCEDURE: CT left lower extremity HISTORY: rule out osteomyelitis COMPARISON: Not available TECHNIQUE: 2.5 mm contiguous axial sections were acquired through the left foot. Sagittal and coronal images were reformatted from the axial scan. FINDINGS: Patient is status post I and D of a 1st digit paronychia. At the lateral distal aspect of the 1st proximal phalanx there is an erosion extending to the articular surface. This is seen over the dorsal aspect of the digit. There is no overlying soft tissue mass or fluid collection. No other lytic or blastic osseous lesion is seen elsewhere. There is no osseous fracture. IMPRESSION: Bony erosion of the distal lateral dorsal aspect 1st proximal phalanx. Possible osteomyelitis. Consider correlation with magnetic resonance imaging. No additional abnormality.
--- NOTE | 2018-06-29 16:55 | CP.PCM.APN ---
Subjective - Date & Time of Evaluation Date of Evaluation: 06/29/18 Time of Evaluation: 12:50 - Subjective Subjective: pt. seen and examined in bed, appears depressed, states has no appetitite, denied further shortness of breath, states to chest wall tenderness upon palpation. Objective - Vital Signs/Intake and Output Vital Signs (last 24 hours): Temp Pulse Resp BP Pulse Ox 97.8 F 98 H 20 118/62 96 06/29/18 08:09 06/29/18 08:09 06/29/18 08:09 06/29/18 09:14 06/29/18 08:09 Intake and Output: 06/29/18 06/29/18 06:59 18:59 Intake Total 540 Output Total 300 Balance 240 - Medications Medications: Current Medications Aspirin (Ecotrin) 81 mg PO DAILY [facility] Last Admin: 06/29/18 09:16 Dose: 81 mg Atorvastatin Calcium (Lipitor) 10 mg PO DIN [facility] Last Admin: 06/28/18 18:13 Dose: 10 mg Fluoxetine HCl (Prozac) 10 mg PO DAILY [facility] Last Admin: 06/29/18 09:15 Dose: 10 mg Furosemide (Lasix) 40 mg IVP BID [facility] Stop: 06/29/18 23:59 Last Admin: 06/29/18 09:14 Dose: 40 mg Furosemide (Lasix) 40 mg PO 0800,1400 [facility] Daptomycin 450 mg/ Sodium (Chloride) 100 mls @ 200 mls/hr IV Q24H [facility]; Protocol Stop: 07/02/18 18:46 Last Admin: 06/28/18 18:40 Dose: 200 mls/hr Ibuprofen (Motrin Tab) 400 mg PO Q6H [facility] Stop: 06/29/18 23:16 Last Admin: 06/29/18 11:18 Dose: 400 mg Levothyroxine Sodium (Synthroid) 100 mcg PO DAILY [facility] Last Admin: 06/29/18 09:15 Dose: 100 mcg Magnesium Oxide (Mag-Ox) 400 mg PO DAILY [facility] Last Admin: 06/29/18 09:16 Dose: 400 mg Megestrol Acetate (Megace) 400 mg PO DAILY [facility] Mupirocin (Bactroban Ointment) 1 gm TOP BID [facility] Last Admin: 06/29/18 11:03 Dose: 1 applic Oxycodone/Acetaminophen (Percocet 10/325 Mg Tab) 1 tab PO Q4H PRN PRN Reason: Pain, moderate (4-7) Last Admin: 06/29/18 09:19 Dose: 1 tab Potassium Chloride (K-Dur 20 Meq Er Tab) 20 meq PO DAILY [facility] Last Admin: 06/29/18 09:15 Dose: 20 meq Pregabalin (Lyrica) 25 mg PO HS [facility] Last Admin: 06/28/18 21:46 Dose: 25 mg Spironolactone (Aldactone) 50 mg PO DAILY [facility] Last Admin: 06/29/18 09:15 Dose: 50 mg - Labs Labs: 06/29/18 06:00 06/29/18 06:00 PT 12.0 SECONDS (9.4-12.5) 06/26/18 00:18 INR 1.08 06/26/18 00:18 APTT 35.1 Seconds (26.9-38.3) 06/26/18 00:18 - Constitutional Appears: Well, Non-toxic - Head Exam Head Exam: ATRAUMATIC - Eye Exam Eye Exam: Normal appearance - ENT Exam ENT Exam: absent: Mucous Membranes Dry, Mucous Membranes Moist, Normal Exam, Normal External Ear Exam, Normal Oropharynx, TM's Normal Bilaterally - Neck Exam Neck Exam: absent: Full ROM, Lymphadenopathy, Meningismus, Normal Inspection, Tenderness, Thyromegaly - Respiratory Exam Respiratory Exam: absent: Accessory Muscle Use, Chest Wall Tenderness, Decreased Breath Sounds, Clear to Ausculation Bilateral, Prolonged Expiratory Phase, Rales, Rhonchi, Wheezes, Respiratory Distress, Stridor, NORMAL BREATHING PATTERN - Cardiovascular Exam Cardiovascular Exam: Irregular Rhythm, +S1, +S2 - GI/Abdominal Exam GI & Abdominal Exam: Soft - Rectal Exam Rectal Exam: Deferred - Exam External exam: absent: Ecchymosis, Erythema, Lacerations, Lesions, NORMAL EXTERNAL EXAM, Swelling Speculum exam: absent: Cervical Discharge, Erythema, Foreign Body, Laceration, NORMAL SPECULUM EXAM, Tissue, Vaginal Bleeding, Vaginal Discharge Bimanual exam: absent: Adenexal Mass, Adnexal, Cervical Motion Tendernes, NORMAL BIMANUAL EXAM, Uterine Enlargement, Uterine Tenderness - Extremities Exam Extremities Exam: Pedal Edema Additional comments: cellulititis, erythema noted to left lower leg. dressing noted on left great toe. Assessment and Plan - Assessment and Plan (Free Text) Assessment: ITS Impressions Chest X-Ray 06/26/18 00:15 IMPRESSION: No active disease. Lumbar Spine CT 06/26/18 10:05 IMPRESSION: Previous vertebroplasty at L1. No acute compression fractures. Extremity Ultrasound 06/26/18 12:36 IMPRESSION: 1. Normal PAWAN and PVR examination at rest. Foot X-Ray 06/26/18 12:36 IMPRESSION: Normal left foot radiographs. Lower Extremity CT 06/29/18 14:21 IMPRESSION: Bony erosion of the distal lateral dorsal aspect 1st proximal phalanx. Possible osteomyelitis. Consider correlation with magnetic resonance imaging. No additional abnormality. Microbiology 06/26/18 11:45 Toe Gram Stain - Final 06/26/18 11:45 Toe Wound Culture - Final Staphylococcus Sp Coag Neg levofloxacin [From Levaquin] Allergy (Severe, Verified 11/14/17 14:27) ANAPHYLAXIS ceftriaxone [From Rocephin] Allergy (Verified 05/11/18 14:47) RASH Assessment: 77 y/o female patient with PMHx CAD, COPD, chronic lung disease and O2 dependence, CHF, hypothyroidism, HLD, LE cellulitis, pancreatitis, anxiety disorder and depression seen and admitted with initally chest discomfort found to be musculoskeletal in origin, and complaints of dyspnea. Plan: 1. ATypical chest pain pain is reproducable on palpation, per card. not cardiac in origin. 2. Dyspnea maybe likely r/t copd, cont, duonebs 3. Poss. osteomyelitis of left great toe cont Dapto per I.D. wound cx so far resulted staphyloccus species Coag Neg. awaiting further recs from I.D. 4. Depression vincent Lyrica , Prozac. megace for appetite stimulant. will continue to monitor clinical status. PT eval pending.
[2018-06-29 18:46] LABS: HEMOGLOBIN 12.7 g/dL (12.0-16.0); MEAN CORPUSCULAR HEMOGLOBIN 31.4 pg (25.0-35.0); MEAN CORPUSCULAR HGB CONC 32.7 g/dl (31.0-37.0); RBC 4.04 10^6/uL (3.5-6.1); RED CELL DISTRIBUTION WIDTH 14.1 % (11.5-14.5); WHITE BLOOD COUNT 9.1 10^3/uL (4.5-11.0)
--- NOTE | 2018-06-29 21:33 | PN ---
DATE: 06/29/2018 The patient was seen and examined. I do agree with the note of the medical care manager. I was involved in the plan of care. The patient had a left toe abscess and is status post I and D. The patient has coag-negative Staph. The patient is being followed by Infectious Disease and is on IV antibiotics. The patient is going to be on Percocet for pain. Her lower extremity edema has improved significantly with aggressive diuresis. The patient is on Lasix 40 mg b.i.d. The patient is interested in going to the transitional care unit. She is currently comfortable. She is on Aldactone because of the lower extremity edema and in fact that she becomes hypokalemic. She is going to continue with Lipitor for her dyslipidemia. She is on Lyrica for her neuropathy. The patient is on heart-healthy diet. A CAT scan that was done and I reviewed. It showed possible osteomyelitis. There are bony erosions that are present in the distal left toe. Podiatry is following the patient. The patient may need long-term antibiotics. We will await input from Podiatry and from Infectious Disease. The patient may need a PICC line. Gregory Estrada MD
--- NOTE | 2018-06-30 07:04 | CP.PCM.PN ---
Subjective - Date & Time of Evaluation Date of Evaluation: 06/30/18 Time of Evaluation: 06:15 - Subjective Subjective: Awake, alert, no distress Reason for consultation and follow up:Cardiac evaluation of chest pain and shortness of breath, history of COPD, ruled out myocardial infarction, Seen and examined by me and Dr. Levine Objective - Vital Signs/Intake and Output Vital Signs (last 24 hours): Temp Pulse Resp BP Pulse Ox 98.4 F 83 18 99/63 L 95 06/29/18 20:18 06/29/18 20:18 06/29/18 20:18 06/29/18 20:18 06/29/18 20:18 Intake and Output: 06/30/18 06/30/18 06:59 18:59 Intake Total 900 Output Total 100 Balance 800 - Medications Medications: Current Medications Aspirin (Ecotrin) 81 mg PO DAILY [facility] Last Admin: 06/29/18 09:16 Dose: 81 mg Atorvastatin Calcium (Lipitor) 10 mg PO DIN [facility] Last Admin: 06/29/18 19:49 Dose: 10 mg Fluoxetine HCl (Prozac) 10 mg PO DAILY [facility] Last Admin: 06/29/18 09:15 Dose: 10 mg Furosemide (Lasix) 40 mg PO 0800,1400 [facility] Levothyroxine Sodium (Synthroid) 100 mcg PO DAILY [facility] Last Admin: 06/29/18 09:15 Dose: 100 mcg Magnesium Oxide (Mag-Ox) 400 mg PO DAILY [facility] Last Admin: 06/29/18 09:16 Dose: 400 mg Megestrol Acetate (Megace) 400 mg PO DAILY [facility] Last Admin: 06/29/18 19:49 Dose: 400 mg Mupirocin (Bactroban Ointment) 1 gm TOP BID [facility] Last Admin: 06/29/18 19:24 Dose: 1 applic Oxycodone/Acetaminophen (Percocet 10/325 Mg Tab) 1 tab PO Q4H PRN PRN Reason: Pain, moderate (4-7) Last Admin: 06/29/18 19:49 Dose: 1 tab Potassium Chloride (K-Dur 20 Meq Er Tab) 20 meq PO DAILY [facility] Last Admin: 06/29/18 09:15 Dose: 20 meq Pregabalin (Lyrica) 25 mg PO HS [facility] Last Admin: 06/29/18 22:09 Dose: 25 mg Spironolactone (Aldactone) 50 mg PO DAILY [facility] Last Admin: 06/29/18 09:15 Dose: 50 mg - Labs Labs: 06/29/18 18:27 06/29/18 06:00 PT 12.0 SECONDS (9.4-12.5) 06/26/18 00:18 INR 1.08 06/26/18 00:18 APTT 35.1 Seconds (26.9-38.3) 06/26/18 00:18 - Constitutional Appears: Non-toxic, No Acute Distress - Head Exam Head Exam: NORMAL INSPECTION, NORMOCEPHALIC - Eye Exam Eye Exam: Normal appearance Pupil Exam: NORMAL ACCOMODATION - ENT Exam ENT Exam: Mucous Membranes Moist, Normal Exam - Cardiovascular Exam Cardiovascular Exam: +S1, +S2 Additional comments: PPM - Extremities Exam Extremities Exam: Full ROM Additional comments: 2+ edema left big toe dressing - Neurological Exam Neurological Exam: Alert, Awake, Oriented x3 - Psychiatric Exam Psychiatric exam: Normal Affect, Normal Mood - Skin Skin Exam: Dry, Normal Color, Warm Assessment and Plan - Assessment and Plan (Free Text) Assessment: A 77 year old female who came in to the ER due to chest discomfort and shortness of breath. History of congestive heart failure, chronic obstructive pulmonary disease,lumbar vertebrae fracture, post kyphoplasty, hyperthyroidism, pancreatitis,hypertension, hyperlipidemia, pacemaker for sick sinus syndrome,post generator change, depression, and leg cellulitis.Troponin normal, Chest discomfort muskuloskeletal in nature, Ibuprofen given with relief. Had cardiac cath 06/11/17 and showed normal coronaries LVEF 60-65%. Echo done on 04/13/18 showed LVEF 65%, left coronary cusp heavily calcified,, moderate AR, mild TR RVSP 31 mmHg. No evidence of acute myocardial ischemia/ infarction. Post incision and drainage of left big toe abscess. Culture positive for staphyloccocus coagulase negative, ID on consult. On IV antibiotics. Plan: No distress Cardiac status stable Heart rate controlled Blood pressure controlled Continue IV antibiotics per ID On ASA 81 mg daily,Lipitor 10 mg daily, Lasix 40 mg BID, Kdur 20 meq daily,Aldactone 50 mg daily Continue current treatment Continue current medications Will follow up Plan and treatment discussed with Dr. Levine
[2018-06-30 07:10] LABS: CALCIUM 10.4 mg/dL (8.4-10.5)
--- NOTE | 2018-06-30 08:12 | PN ---
DATE: 06/29/2018 SUBJECTIVE: The patient is in bed in no acute distress, nontoxic. PHYSICAL EXAMINATION: VITAL SIGNS: Temperature is 97, blood pressure is 111/60, respiratory rate 20, heart rate of 98. HEENT: Unremarkable. NECK: Supple. LUNGS: Have decreased breath sounds. HEART: Normal S1, S2. ABDOMEN: Soft. LABORATORY EXAMINATION: Reveals a white count of 9.5, hemoglobin of 12, platelets of 287 and chemistries reveals a BUN of 23, creatinine 1.0. C-reactive protein is 8.2. Urinalysis is noted. Microbiology reveals a toe cultures coag-negative staph, possible old colonizer contamination, it is very sensitive. The patient is does have allergies to ceftriaxone and Levaquin. Unable to use quinolones and sensitive to clindamycin, but resistant to erythromycin, linezolid sensitive, and Bactrim sensitive. The patient is currently on daptomycin and the patient's GFR is 54 and some renal insufficiency. Dr. Edelmira Munroe's note is reviewed. Dr. Bear's, note is reviewed. ASSESSMENT AND PLAN: This is a 78-year-old female seen early in 363, bed 1, with admitted with chest pain found to have a left big toe ingrown nail with pus, with coagulase-negative Staphylococcus. If imaging is negative for osteomyelitis, may be able to switch to p.o. Bactrim for short course of single strength Bactrim twice a day x5 days and unable to use linezolid because of antidepressants in the limited options. If however there is osteomyelitis, we will need prolonged antibiotic therapy, daptomycin currently. Macho Mark MD
--- NOTE | 2018-06-30 09:13 | CP.PCM.PN ---
Subjective - Date & Time of Evaluation Date of Evaluation: 06/30/18 Time of Evaluation: 09:13 - Subjective Subjective: Podiatry Progress Note: Dr. Talbert Patient seen and evaluated this AM, with attending Dr. Talbert, 4 days s/p L hallux I&D secondary to paronychia, stable a this time. Patient resting comfortably and in no acute distress. Per chart, no acute events overnight. Patient is accompanied by family member at today's visit. Denies nausea/vomi ting/fever. Objective - Vital Signs/Intake and Output Vital Signs (last 24 hours): Temp Pulse Resp BP Pulse Ox 98.1 F 82 20 119/65 94 L 06/30/18 08:02 06/30/18 08:02 06/30/18 08:02 06/30/18 08:02 06/30/18 08:02 Intake and Output: 06/30/18 06/30/18 06:59 18:59 Intake Total 900 Output Total 100 Balance 800 - Medications Medications: Current Medications Aspirin (Ecotrin) 81 mg PO DAILY [facility] Last Admin: 06/29/18 09:16 Dose: 81 mg Atorvastatin Calcium (Lipitor) 10 mg PO DIN [facility] Last Admin: 06/29/18 19:49 Dose: 10 mg Fluoxetine HCl (Prozac) 10 mg PO DAILY [facility] Last Admin: 06/29/18 09:15 Dose: 10 mg Furosemide (Lasix) 40 mg PO 0800,1400 [facility] Levothyroxine Sodium (Synthroid) 100 mcg PO DAILY [facility] Last Admin: 06/29/18 09:15 Dose: 100 mcg Magnesium Oxide (Mag-Ox) 400 mg PO DAILY [facility] Last Admin: 06/29/18 09:16 Dose: 400 mg Mupirocin (Bactroban Ointment) 1 gm TOP BID [facility] Last Admin: 06/29/18 19:24 Dose: 1 applic Oxycodone/Acetaminophen (Percocet 10/325 Mg Tab) 1 tab PO Q4H PRN PRN Reason: Pain, moderate (4-7) Last Admin: 06/29/18 19:49 Dose: 1 tab Potassium Chloride (K-Dur 20 Meq Er Tab) 20 meq PO DAILY [facility] Last Admin: 06/29/18 09:15 Dose: 20 meq Pregabalin (Lyrica) 25 mg PO HS [facility] Last Admin: 06/29/18 22:09 Dose: 25 mg Spironolactone (Aldactone) 50 mg PO DAILY [facility] Last Admin: 06/29/18 09:15 Dose: 50 mg - Labs Labs: 06/29/18 18:27 06/30/18 06:20 PT 12.0 SECONDS (9.4-12.5) 06/26/18 00:18 INR 1.08 06/26/18 00:18 APTT 35.1 Seconds (26.9-38.3) 06/26/18 00:18 - Constitutional Appears: Non-toxic, No Acute Distress - Head Exam Head Exam: ATRAUMATIC, NORMOCEPHALIC - Extremities Exam Additional comments: B/L lower extremity focused exam: Vascular: DP/PT faintly palpable, Cap refill < 3 seconds, Temp gradient warm to cool from proximal to distal, +1 pitting extending up to the knees edema appreciated to b/l extremities left>right. Mild erythema noted on the left hallux and anterior aspect of bilateral legs. Ortho: Tenderness to palpation of L hallux medial nail border. Neuro: Gross sensation intact, protective sensation diminished. Derm: A small open wound at the medial nail fold with mild erythema. No drainage , no purulence, no tunneling, no tracking appreciated, no clinical signs of infection at this time - Neurological Exam Neurological Exam: Alert, Awake - Psychiatric Exam Psychiatric exam: Normal Affect, Normal Mood - Skin Skin Exam: Warm Assessment and Plan - Assessment and Plan (Free Text) Assessment: 77 year old female patient 4 days s/p L hallux I&D secondary to paronychia, stable Plan: Patient seen and evaluated patient at bedside with Dr. Talbert Afebrile, WBC 9.1 Wound culture L toe: Staph species. Local wound care: Hallux cleaned with saline and dressed with bactroban and Mepilex. LE CT; Bony erosion of the distal lateral aspect of the 1st proximal phalanx. Possible OM. - CT read does not correlate with clinical findings Left foot 3 views X-ray: Normal left foot radiograph. APWAN/PVR LE: Normal PAWAN PVR at rest. Patient stable from podiatry standpoint, no further intervention at this time Upon d/c patient to follow up as outpatient in office or wound center with Dr. Callahan/Nitish
[2018-06-30] MEDS: Mupirocin 2% Ointment 15 GM TUBE TOP SCH ×2 (09:42→17:44)
[2018-06-30] MEDS: Magnesium Oxide 400 mg Tab UD PO SCH (09:43)
[2018-06-30] MEDS: Levothyroxine 100 MCG TAB PO SCH (09:44)
--- NOTE | 2018-06-30 09:49 | CP.PCM.PN ---
<Edelmira Munroe - Last Filed: 06/30/18 12:59> Subjective - Date & Time of Evaluation Date of Evaluation: 06/30/18 Time of Evaluation: 08:00 - Subjective Subjective: Edelmira Munroe, PGY2, Medicine Progress Note for Dr Estrada: Patient seen and examined at bedside. No acute events overnight. Patient reports feeling better. Reports mildly improved appetite. Denies fevers, chills, nausea, vomiting, abdominal pain, diarrhea, constipation. Objective - Vital Signs/Intake and Output Vital Signs (last 24 hours): Temp Pulse Resp BP Pulse Ox 98.1 F 82 20 119/65 94 L 06/30/18 08:02 06/30/18 08:02 06/30/18 08:02 06/30/18 08:02 06/30/18 08:02 Intake and Output: 06/30/18 06/30/18 06:59 18:59 Intake Total 900 Output Total 100 Balance 800 - Medications Medications: Current Medications Aspirin (Ecotrin) 81 mg PO DAILY [facility] Last Admin: 06/30/18 09:42 Dose: 81 mg Atorvastatin Calcium (Lipitor) 10 mg PO DIN [facility] Last Admin: 06/29/18 19:49 Dose: 10 mg Fluoxetine HCl (Prozac) 10 mg PO DAILY [facility] Last Admin: 06/30/18 09:44 Dose: 10 mg Furosemide (Lasix) 40 mg PO 0800,1400 [facility] Last Admin: 06/30/18 09:43 Dose: Not Given Levothyroxine Sodium (Synthroid) 100 mcg PO DAILY [facility] Last Admin: 06/30/18 09:44 Dose: 100 mcg Magnesium Oxide (Mag-Ox) 400 mg PO DAILY [facility] Last Admin: 06/30/18 09:43 Dose: 400 mg Mupirocin (Bactroban Ointment) 1 gm TOP BID [facility] Last Admin: 06/30/18 09:42 Dose: 1 applic Oxycodone/Acetaminophen (Percocet 10/325 Mg Tab) 1 tab PO Q4H PRN PRN Reason: Pain, moderate (4-7) Last Admin: 06/29/18 19:49 Dose: 1 tab Potassium Chloride (K-Dur 20 Meq Er Tab) 20 meq PO DAILY [facility] Last Admin: 06/29/18 09:15 Dose: 20 meq Pregabalin (Lyrica) 25 mg PO HS [facility] Last Admin: 03/04/19 22:09 Dose: 25 mg Spironolactone (Aldactone) 50 mg PO DAILY [facility] Last Admin: 06/30/18 09:39 Dose: 50 mg - Labs Labs: 06/29/18 18:27 06/30/18 06:20 PT 12.0 SECONDS (9.4-12.5) 06/26/18 00:18 INR 1.08 06/26/18 00:18 APTT 35.1 Seconds (26.9-38.3) 06/26/18 00:18 - Additional Findings Additional findings: - Constitutional Appears: Non-toxic, No Acute Distress - Head Exam Head Exam: ATRAUMATIC, NORMOCEPHALIC - Eye Exam Eye Exam: EOMI, PERRL. absent: Conjunctival injection, Nystagmus, Periorbital tenderness, Scleral icterus Pupil Exam: NORMAL ACCOMODATION, PERRL. absent: Irregular, Miosis, Mydriatic, Unequal - ENT Exam ENT Exam: Mucous Membranes Moist - Neck Exam Neck Exam: Full ROM - Respiratory Exam Respiratory Exam: Clear to Ausculation Bilateral, NORMAL BREATHING PATTERN. absent: Accessory Muscle Use, Chest Wall Tenderness, Respiratory Distress, Stridor - Cardiovascular Exam Cardiovascular Exam: RRR, +S1, +S2. absent: Murmur - GI/Abdominal Exam GI & Abdominal Exam: Soft, Normal Bowel Sounds. absent: Firm, Guarding, Rigid, Tenderness, Mass, Organomegaly - Extremities Exam Extremities Exam: absent: Calf Tenderness, Pedal Edema Additional comments: + bilateral leg mild redness, warmth. No drainage. Left big toe covered in dressing, c/d/i. - Back Exam Back Exam: NORMAL INSPECTION - Neurological Exam Neurological Exam: Alert, Awake, Oriented x3 - Psychiatric Exam Psychiatric exam: Normal Affect, Normal Mood - Skin Skin Exam: Dry, Normal Color, Warm Assessment and Plan - Assessment and Plan (Free Text) Assessment: 1. Left big abscess, s/p I&D and antibiotics 2. Acute on chronic CHF 3. hypothyroidism 4. COPD 5. HLD 6. CAD 7. DEENA 8. Left big toe ingrown toe nail I discussed with Podiatry Dr Talbert regarding CAT scan of foot, unlikely to be osteomyelitis. ID Dr Mark agreed to keep patient off antibiotics. Arterial duplex study showed normal PAWAN/PVR. Continue with percocet prn pain. Continue with ASA 81 mg, lipitor. In setting of DEENA, will hold lasix and K dur. Will order for BMP tomorrow to monitor Cr. Will continue with lyrica. Will discontinue megace and instead start Ensure supplements. Cardio Dr Levine is following patient for chf exacerbation. Physical therapy recommends subacute rehab, awaiting placement and insurance authorization. Denied by TCU. Case reviewed and discussed with attending, Dr Estrada. <Gregory Estrada S - Last Filed: 06/30/18 17:16> Objective - Vital Signs/Intake and Output Vital Signs (last 24 hours): Temp Pulse Resp BP Pulse Ox 98.1 F 82 20 119/65 94 L 06/30/18 08:02 06/30/18 08:02 06/30/18 08:02 06/30/18 08:02 06/30/18 08:02 Intake and Output: 06/30/18 06/30/18 06:59 18:59 Intake Total 900 300 Output Total 100 Balance 800 300 - Medications Medications: Current Medications Aspirin (Ecotrin) 81 mg PO DAILY [facility] Last Admin: 06/30/18 09:42 Dose: 81 mg Atorvastatin Calcium (Lipitor) 10 mg PO DIN [facility] Last Admin: 06/29/18 19:49 Dose: 10 mg Fluoxetine HCl (Prozac) 10 mg PO DAILY [facility] Last Admin: 06/30/18 09:44 Dose: 10 mg Furosemide (Lasix) 40 mg PO 0800,1400 [facility] Last Admin: 06/30/18 09:43 Dose: Not Given Levothyroxine Sodium (Synthroid) 100 mcg PO DAILY [facility] Last Admin: 06/30/18 09:44 Dose: 100 mcg Magnesium Oxide (Mag-Ox) 400 mg PO DAILY [facility] Last Admin: 06/30/18 09:43 Dose: 400 mg Mupirocin (Bactroban Ointment) 1 gm TOP BID [facility] Last Admin: 06/30/18 09:42 Dose: 1 applic Oxycodone/Acetaminophen (Percocet 10/325 Mg Tab) 1 tab PO Q4H PRN PRN Reason: Pain, moderate (4-7) Last Admin: 06/29/18 19:49 Dose: 1 tab Polyethylene Glycol (Miralax) 17 gm PO BID [facility] Potassium Chloride (K-Dur 20 Meq Er Tab) 20 meq PO DAILY [facility] Last Admin: 06/29/18 09:15 Dose: 20 meq Pregabalin (Lyrica) 25 mg PO HS [facility] Last Admin: 06/29/18 22:09 Dose: 25 mg Spironolactone (Aldactone) 50 mg PO DAILY [facility] Last Admin: 06/30/18 09:39 Dose: 50 mg - Labs Labs: 06/29/18 18:27 06/30/18 06:20 PT 12.0 SECONDS (9.4-12.5) 06/26/18 00:18 INR 1.08 06/26/18 00:18 APTT 35.1 Seconds (26.9-38.3) 06/26/18 00:18 Assessment and Plan - Assessment and Plan (Free Text) Assessment: Pt seen and examined by me. I have reviewed the note of the certified medical technician assistant and I agree with it. I have discussed the assessment and plan with the resident. I have reviewed the medications and the last labs.
--- NOTE | 2018-06-30 11:39 | CP.PCM.PCO ---
Physician Communication Note - Physician Communication Note Physician Communication Note: pt.no longer on Iv Dapto,no clinical osteo per podiatry,not TCU candidate
--- NOTE | 2018-06-30 14:42 | PN ---
DATE: 06/30/2018 SUBJECTIVE: The patient is in bed, in no acute distress, nontoxic. She was seen earlier this morning in room 363, bed 1. PHYSICAL EXAMINATION: VITAL SIGNS: Temperature is 98, blood pressure is 119/60, and respiratory rate of 18. HEENT: Unremarkable. NECK: Supple. LUNGS: Decreased breath sounds. HEART: Normal S1 and S2. ABDOMEN: Soft. LABORATORY DATA: Reviewed. White count of 9.1, sed rate is 82. Chemistries are noted. Urinalysis is noted. Creatinine is 1.4. MEDICATIONS: Review of orders reveals the patient is off of antibiotics. ASSESSMENT AND PLAN: A 77-year-old female, was admitted with chest pain, found to have left big toe ingrown nail plus coag-negative staph, probably colonized and out of pathogen; and at this time would not treat with any antibiotics. In discussion with Podiatry regarding CAT scan findings, Podiatry feels there is no osteomyelitis, no further antibiotics as Podiatry feels CAT scan imaging is not consistent with their clinical imaging and impression. Case was discussed with Dr. Edelmira Munroe and nurse practitioner and and rewriter, who will follow with you. Macho Mark MD
[2018-06-30] MEDS: POLYETHYLENE GLYCOL 3350 17 GM/Dose PACKET PO SCH ×2 (17:49)
[2018-06-30] MEDS ORDERED: Tmp-Smz 800 mg-160 mg DS Tab PO SCH (18:00)
[2018-06-30] MEDS: Levalbuterol 1.25 MG/3 ML Inhal Soln UD IH SCH (19:39)
[2018-06-30] MEDS: Budesonide 0.5 mg/2 ml Inhal Susp UD IH SCH (19:39)
[2018-06-30] MEDS: Oxycodone/Acetaminophen 10/325 mg Tab PO PRN (19:51)
--- NOTE | 2018-06-30 20:00 | CON ---
DATE OF CONSULTATION: 06/30/2018 PULMONARY CONSULTATION PRIMARY CARE PHYSICIAN: Dr. Gregory Estrada. REASON FOR CONSULTATION: Chronic lung disease, suspected sleep apnea syndrome. HISTORY OF PRESENT ILLNESS: This is a 77-year-old female, known to me from previous admission, been in a subacute facility, just recently moved home, admitted with possible left toe infection, leg swelling, shortness of breath, seeing Infectious Diseases, Cardiology; also has a history of hypothyroid, chronic lung disease, cardiac arrhythmia requiring pacemaker, depression, coronary artery disease, history of L1 vertebral fracture, chronic pain syndrome, seen by Pain Management. She feels a little better, still snores at night and daytime sleepy and tired, short of breath with exertion. No nausea. No vomiting. No diarrhea. No abdominal pain. Has some swelling of the lower extremities, left big toe is erythematous. PAST MEDICAL HISTORY: As per history of present illness. ALLERGIES: TO LEVAQUIN AND CEFUROXIME. SOCIAL HISTORY: Nonsmoker, nondrinker. FAMILY HISTORY: Not significant. Cardiopulmonary disease reported. MEDICATIONS: She is on Aldactone 50 mg daily, Bactroban ointment to affected area twice a day, Ecotrin 81 mg daily, potassium 20 mEq daily, Lasix 40 mg twice a day, Lipitor 10 mg daily, Lyrica 25 mg at bedtime, mag oxide 40 mg daily, MiraLax 17 g p.o. twice a day, Percocet 10/225 one tablet every 4 hours p.r.n., Prozac 10 mg daily, Synthroid 100 mcg daily, daptomycin has been discontinued. REVIEW OF SYSTEMS: No headache. No rhinitis. Snorer nighttime, daytime sleepy and tired, short of breath with exertion. No chest pain. No nausea, vomiting or diarrhea. Does have leg swelling. Left toe erythema and tenderness. PHYSICAL EXAMINATION: GENERAL: No acute distress. VITAL SIGNS: Temperature is 98, heart rate 82, respiratory rate is 20, blood pressure 119/65, pulse ox 94% on 2 liters cannula. HEENT: Moist mucous membrane. Crowded airway. Mallampati score is 4. NECK: Supple. No JVD. LUNGS: Have a few scattered rhonchi. HEART: S1 and S2. ABDOMEN: Soft, nontender. No organomegaly. EXTREMITIES: Trace edema. Left toe is erythematous. NEUROLOGIC: Awake and alert, follows simple commands. LABORATORY DATA: Shows hemoglobin 12.7, hematocrit 38.8, WBC 9.1, platelet is 275. INR 1.08. PTT 35. Sodium 134, potassium 4, chloride 86, bicarbonate 40, BUN 34, creatinine 1.4, glucose 112, calcium is 10.4. Urinalysis shows rbc 2 to 5, wbc's 0 to 2. Toe area swab has Staph coag negative. IMPRESSION AND PLAN: Chronic obstructive lung disease, suspected sleep apnea syndrome, coronary artery disease, history of L1 fracture, chronic pain syndrome, being treated for toe infection. From a pulmonary point of view doing okay. Keep head elevated to 45 degrees. We will add bronchodilator, gastric prophylaxis. She should be on deep venous thrombosis prophylaxis. High risk for deep venous thrombosis. We will suggest outpatient PFT and attend a sleep study, physical therapy, fall precaution. Thank you and we will follow with you. Jefferson Simmons MD
--- NOTE | 2018-06-30 22:03 | PN ---
DATE: 06/30/2018 The patient was seen and examined. I do agree with the note of the medical parasitologist. I was involved in the plan of care. The patient had a CAT scan of the left toe and showed possible osteomyelitis. The patient will need long-term IV antibiotics. I will wait for Podiatry and ID to evaluate the patient. The patient had arterial Dopplers that were normal. She received Percocet for pain. Her lower extremity edema has improved significantly. Her creatinine is going up because of acute kidney injury that is most likely prerenal. I will hold her Lasix. The patient has been started on Ensure. She will most likely need subacute rehab for the long-term IV antibiotics. I will wait for Podiatry and for ID to reach a decision on the antibiotics that is going to be prescribed as well as the length of antibiotics. She has been as before. Gregory Estrada MD
[2018-07-01 06:56] LABS: ALB/GLOB RATIO 1.1 (1.1-1.8); ALBUMIN 4.1 g/dL (3.0-4.8); CALCIUM 10.5 mg/dL (8.4-10.5)
--- NOTE | 2018-07-01 07:04 | CP.PCM.PN ---
Subjective - Date & Time of Evaluation Date of Evaluation: 07/01/18 Time of Evaluation: 06:15 - Subjective Subjective: Lying in bed, Awake, alert, no distress Reason for consultation and follow up:Cardiac evaluation of chest pain and shortness of breath, history of COPD, ruled out myocardial infarction, Seen and examined by me and Dr. Levine Objective - Vital Signs/Intake and Output Vital Signs (last 24 hours): Temp Pulse Resp BP Pulse Ox 98.1 F 82 20 119/65 94 L 06/30/18 08:02 06/30/18 08:02 06/30/18 08:02 06/30/18 08:02 06/30/18 08:02 Intake and Output: 07/01/18 07/01/18 06:59 18:59 Intake Total 1020 Output Total 500 Balance 520 - Medications Medications: Current Medications Aspirin (Ecotrin) 81 mg PO DAILY [facility] Last Admin: 06/30/18 09:42 Dose: 81 mg Atorvastatin Calcium (Lipitor) 10 mg PO DIN [facility] Last Admin: 06/30/18 17:44 Dose: 10 mg Budesonide (Pulmicort Respules) 0.5 mg IH [id number] [facility] Last Admin: 06/30/18 19:39 Dose: 0.5 mg Fluoxetine HCl (Prozac) 10 mg PO DAILY [facility] Last Admin: 06/30/18 09:44 Dose: 10 mg Furosemide (Lasix) 40 mg PO 0800,1400 [facility] Last Admin: 06/30/18 09:43 Dose: Not Given Levalbuterol HCl (Xopenex) 1.25 mg IH [id number] [facility] Last Admin: 06/30/18 19:39 Dose: 1.25 mg Levothyroxine Sodium (Synthroid) 100 mcg PO DAILY [facility] Last Admin: 06/30/18 09:44 Dose: 100 mcg Magnesium Oxide (Mag-Ox) 400 mg PO DAILY [facility] Last Admin: 06/30/18 09:43 Dose: 400 mg Mupirocin (Bactroban Ointment) 1 gm TOP BID [facility] Last Admin: 06/30/18 17:44 Dose: 1 applic Oxycodone/Acetaminophen (Percocet 10/325 Mg Tab) 1 tab PO Q4H PRN PRN Reason: Pain, moderate (4-7) Last Admin: 06/30/18 19:51 Dose: 1 tab Polyethylene Glycol (Miralax) 17 gm PO BID [facility] Last Admin: 06/30/18 17:49 Dose: 17 gm Potassium Chloride (K-Dur 20 Meq Er Tab) 20 meq PO DAILY [facility] Last Admin: 06/29/18 09:15 Dose: 20 meq Pregabalin (Lyrica) 25 mg PO HS [facility] Last Admin: 06/30/18 21:15 Dose: 25 mg Spironolactone (Aldactone) 50 mg PO DAILY [facility] Last Admin: 06/30/18 09:39 Dose: 50 mg - Labs Labs: 06/29/18 18:27 07/01/18 06:25 PT 12.0 SECONDS (9.4-12.5) 06/26/18 00:18 INR 1.08 06/26/18 00:18 APTT 35.1 Seconds (26.9-38.3) 06/26/18 00:18 - Constitutional Appears: Non-toxic, No Acute Distress - Head Exam Head Exam: NORMAL INSPECTION, NORMOCEPHALIC - Eye Exam Eye Exam: Normal appearance Pupil Exam: NORMAL ACCOMODATION - ENT Exam ENT Exam: Mucous Membranes Moist, Normal Exam - Respiratory Exam Respiratory Exam: Clear to Ausculation Bilateral, NORMAL BREATHING PATTERN - Cardiovascular Exam Cardiovascular Exam: +S1, +S2 Additional comments: PPM - GI/Abdominal Exam GI & Abdominal Exam: Soft, Normal Bowel Sounds - Extremities Exam Extremities Exam: Full ROM Additional comments: 2+edema left big toe dressing - Neurological Exam Neurological Exam: Alert, Awake, Oriented x3 - Psychiatric Exam Psychiatric exam: Normal Affect, Normal Mood - Skin Skin Exam: Dry, Normal Color, Warm Assessment and Plan - Assessment and Plan (Free Text) Assessment: A 77 year old female who came in to the ER due to chest discomfort and shortness of breath. History of congestive heart failure, chronic obstructive pulmonary disease,lumbar vertebrae fracture, post kyphoplasty, hyperthyroidism, pancreatitis,hypertension, hyperlipidemia, pacemaker for sick sinus syndrome,post generator change, depression, and leg cellulitis.Troponin normal, Chest discomfort muskuloskeletal in nature, Ibuprofen given with relief. Had cardiac cath 06/11/17 and showed normal coronaries LVEF 60-65%. Echo done on 04/13/18 showed LVEF 65%, left coronary cusp heavily calcified,, moderate AR, mild TR RVSP 31 mmHg. No evidence of acute myocardial ischemia/ infarction. Post incision and drainage of left big toe abscess. Culture positive for staphyloccocus coagulase negative, ID on consult. Off antibiotics. CT of Lower extremity showed Bony erosion of the distal lateral aspect of the 1st proximal phalanx. Possible osteomyelitis but per podiatry CT read does not correlate with clinical findings.Left foot 3 views X-ray: Normal left foot radiograph.Left foot 3 views X-ray: Normal left foot radiograph.PAWAN/PVR LE: Normal PAWAN PVR at rest. Plan: No distress, comfortable Cardiac status stable Heart rate controlled Blood pressure controlled On ASA 81 mg daily,Lipitor 10 mg daily, Lasix 40 mg BID, Kdur 20 meq daily,Aldactone 50 mg daily Continue current treatment Continue current medications Nutritional support Physical therapy Discharge planning Will follow up Plan and treatment discussed with Dr. Levine
[2018-07-01] MEDS: Levalbuterol 1.25 MG/3 ML Inhal Soln UD IH SCH (07:58)
[2018-07-01] MEDS: Budesonide 0.5 mg/2 ml Inhal Susp UD IH SCH (07:58)
[2018-07-01] MEDS: POLYETHYLENE GLYCOL 3350 17 GM/Dose PACKET PO SCH (10:04)
[2018-07-01] MEDS: Mupirocin 2% Ointment 15 GM TUBE TOP SCH (10:05)
[2018-07-01] MEDS: Levothyroxine 100 MCG TAB PO SCH (10:05)
[2018-07-01] MEDS: Magnesium Oxide 400 mg Tab UD PO SCH (10:05)
[2018-07-01] MEDS: Potassium Chloride 20 mEq ER Tab PO SCH (10:05)
[2018-07-01 10:29] VITALS: BP 120/77; PULSE 73; RESP 19; TEMP 97.4; O2SAT 99
--- NOTE | 2018-07-01 10:36 | CP.PCM.PN ---
Subjective - Date & Time of Evaluation Date of Evaluation: 07/01/18 Time of Evaluation: 10:34 - Subjective Subjective: Podiatry Progress Note: Dr. Callahan Patient seen and evaluated, 5 days s/p L hallux I&D secondary to paronychia, stable. Patient resting comfortably, eating breakfast at this time. She reports mild pain to her left toe, however pain controlled at this time. Denies nausea/vomiting/fever/chills. Objective - Vital Signs/Intake and Output Vital Signs (last 24 hours): Temp Pulse Resp BP Pulse Ox 97.4 F L 73 19 120/77 99 07/01/18 07:43 07/01/18 07:43 07/01/18 07:43 07/01/18 07:43 07/01/18 07:43 Intake and Output: 07/01/18 07/01/18 06:59 18:59 Intake Total 1020 Output Total 500 Balance 520 - Medications Medications: Current Medications Aspirin (Ecotrin) 81 mg PO DAILY [facility] Last Admin: 07/01/18 10:05 Dose: 81 mg Atorvastatin Calcium (Lipitor) 10 mg PO DIN [facility] Last Admin: 06/30/18 17:44 Dose: 10 mg Budesonide (Pulmicort Respules) 0.5 mg IH [id number] [facility] Last Admin: 07/01/18 07:58 Dose: 0.5 mg Fluoxetine HCl (Prozac) 10 mg PO DAILY [facility] Last Admin: 07/01/18 10:04 Dose: 10 mg Furosemide (Lasix) 40 mg PO 0800,1400 [facility] Last Admin: 06/30/18 09:43 Dose: Not Given Levalbuterol HCl (Xopenex) 1.25 mg IH [id number] [facility] Last Admin: 07/01/18 07:58 Dose: 1.25 mg Levothyroxine Sodium (Synthroid) 100 mcg PO DAILY [facility] Last Admin: 07/01/18 10:05 Dose: 100 mcg Magnesium Oxide (Mag-Ox) 400 mg PO DAILY [facility] Last Admin: 07/01/18 10:05 Dose: 400 mg Mupirocin (Bactroban Ointment) 1 gm TOP BID [facility] Last Admin: 07/01/18 10:05 Dose: 1 applic Oxycodone/Acetaminophen (Percocet 10/325 Mg Tab) 1 tab PO Q4H PRN PRN Reason: Pain, moderate (4-7) Last Admin: 06/30/18 19:51 Dose: 1 tab Polyethylene Glycol (Miralax) 17 gm PO BID [facility] Last Admin: 07/01/18 10:04 Dose: 17 gm Potassium Chloride (K-Dur 20 Meq Er Tab) 20 meq PO DAILY [facility] Last Admin: 07/01/18 10:05 Dose: 20 meq Pregabalin (Lyrica) 25 mg PO HS [facility] Last Admin: 06/30/18 21:15 Dose: 25 mg Spironolactone (Aldactone) 50 mg PO DAILY [facility] Last Admin: 07/01/18 10:05 Dose: 50 mg - Labs Labs: 06/29/18 18:27 07/01/18 06:25 PT 12.0 SECONDS (9.4-12.5) 06/26/18 00:18 INR 1.08 06/26/18 00:18 APTT 35.1 Seconds (26.9-38.3) 06/26/18 00:18 - Constitutional Appears: Non-toxic, No Acute Distress - Head Exam Head Exam: ATRAUMATIC, NORMOCEPHALIC - Extremities Exam Additional comments: B/L lower extremity focused exam: Vascular: DP/PT faintly palpable, Cap refill < 3 seconds, Temp gradient warm to cool from proximal to distal, +1 pitting extending up to the knees edema appreciated to b/l extremities left>right. Mild erythema noted on the left hallux and anterior aspect of bilateral legs. Ortho: Tenderness to palpation of L hallux medial nail border. Neuro: Gross sensation intact, protective sensation diminished. Derm: A small open wound at the L medial nail fold with mild erythema. No drainage, no purulence, no tunneling, no tracking appreciated, no clinical signs of infection at this time - Neurological Exam Neurological Exam: Alert, Awake, Oriented x3 - Psychiatric Exam Psychiatric exam: Normal Affect, Normal Mood Assessment and Plan - Assessment and Plan (Free Text) Assessment: 77 year old female patient 5 days s/p L hallux I&D secondary to paronychia, st able Plan: Patient seen and evaluated patient at bedside with Dr. Talbert Afebrile, WBC 9.1 Wound culture L toe: Staph species. Local wound care: Hallux cleaned with saline and dressed with bactroban and Mepilex. LE CT; Bony erosion of the distal lateral aspect of the 1st proximal phalanx. Possible OM. - CT read does not correlate with clinical findings Left foot 3 views X-ray: Normal left foot radiograph. PAWAN/PVR LE: Normal PAWAN PVR at rest. Patient stable from podiatry standpoint, no further intervention at this time Upon d/c patient to follow up as outpatient in office or wound center with Dr. Callahan/Nitish
--- NOTE | 2018-07-01 13:56 | CP.PCM.DIS ---
<Edelmira Munroe - Last Filed: 07/01/18 15:37> Provider - Provider Date of Admission: 06/26/18 02:29 Attending physician: Gregory Estrada MD Consults: 06/26/18 04:46 Social Work Referral Routine Comment: admission assessment protocol Physician Instructions: Reason For Exam: Beatriz score 14 06/26/18 07:33 Consult [Physician Consult] Routine Comment: Consulting Provider: Jefferson Levine Consulting Physician: Jefferson Levine Reason for Consult: CP 06/26/18 10:08 Podiatry Consult Routine Comment: Consulting Provider: Lu Callahan Consulting Physician: Lu Callahan Reason for Consult: Left big toe nail 06/26/18 12:54 Infectious Disease Consult Routine Comment: Consulting Provider: Macho Mark Consulting Physician: Macho Mark Reason for Consult: pus found on the left big toe 06/29/18 14:17 TCU [Evaluation for TRCU] Routine Comment: Physician Instructions: Reason For Exam: weakness 06/30/18 11:26 TCU [Evaluation for TRCU] Routine Comment: Physician Instructions: Reason For Exam: weakness Time Spent in preparation of Discharge (in minutes): 90 Diagnosis - Discharge Diagnosis (1) Toe abscess Status: Acute (2) CHF exacerbation Status: Acute Hospital Course - Lab Results Lab Results: Micro Results 06/26/18 11:45 Toe Gram Stain - Final 06/26/18 11:45 Toe Wound Culture - Final Staphylococcus Sp Coag Neg Most Recent Lab Values WBC 9.1 10^3/uL (4.5-11.0) 06/29/18 18:27 RBC 4.04 10^6/uL (3.5-6.1) 06/29/18 18:27 Hgb 12.7 g/dL (12.0-16.0) 06/29/18 18:27 Hct 38.8 % (36.0-48.0) 06/29/18 18: MCV 96.0 fl (80.0-105.0) 06/29/18 18:27 MCH 31.4 pg (25.0-35.0) 06/29/18 18:27 MCHC 32.7 g/dl (31.0-37.0) 06/29/18 18:27 RDW 14.1 % (11.5-14.5) 06/29/18 18:27 Plt Count 278 10^3/uL (120.0-450.0) 06/29/18 18:27 MPV 10.0 fl (7.0-11.0) 06/29/18 18:27 Neut % (Auto) 50.9 % (50.0-68.0) 06/27/18 08:19 Lymph % (Auto) 33.1 % (22.0-35.0) 06/27/18 08:19 Todd % (Auto) 11.6 % (1.0-6.0) H 06/27/18 08:19 Eos % (Auto) 4.4 % (1.5-5.0) 06/27/18 08:19 Baso % (Auto) 0.0 % (0.0-3.0) 06/27/18 08:19 Lymph # (Auto) 2.0 (1.2-3.4) 06/27/18 08:19 Todd # (Auto) 0.7 (0.1-0.6) H 06/27/18 08:19 Eos # (Auto) 0.3 (0.0-0.7) 06/27/18 08:19 Baso # (Auto) 0.00 K/mm3 (0.0-2.0) 06/27/18 08:19 Absolute Neuts (auto) 3.10 (1.4-6.5) 06/27/18 08:19 ESR 82 mm/hr (0.0-20.0) H 06/27/18 08:19 PT 12.0 SECONDS (9.4-12.5) 06/26/18 00:18 INR 1.08 06/26/18 00:18 APTT 35.1 Seconds (26.9-38.3) 06/26/18 00:18 Sodium 134 mmol/L (132-148) 07/01/18 06:25 Potassium 3.9 mmol/L (3.6-5.0) 07/01/18 06:25 Chloride 88 mmol/L (98-107) L 07/01/18 06:25 Carbon Dioxide 40 mmol/L (21-33) H 07/01/18 06:25 Anion Gap 11 (10-20) 07/01/18 06:25 BUN 30 mg/dL (7-21) H 07/01/18 06:25 Creatinine 1.1 mg/dl (0.7-1.2) 07/01/18 06:25 Est GFR ( Amer) 58 07/01/18 06:25 Est GFR (Non-Af Amer) 48 07/01/18 06:25 POC Glucose (mg/dL) 102 mg/dL (65-110) 07/01/18 07:25 Random Glucose 112 mg/dL (70-110) H 07/01/18 06:25 Hemoglobin A1c 5.4 % (4.2-6.5) 06/27/18 08:19 Calcium 10.5 mg/dL (8.4-10.5) 07/01/18 06:25 Phosphorus 4.5 mg/dL (2.5-4.5) 07/01/18 06:25 Magnesium 2.3 mg/dL (1.7-2.2) H 07/01/18 06:25 Total Bilirubin 0.8 mg/dL (0.2-1.3) 07/01/18 06:25 AST 28 U/L (14-36) 07/01/18 06:25 ALT 13 U/L (7-56) 07/01/18 06:25 Alkaline Phosphatase 97 U/L (38-126) 07/01/18 06:25 Lactate Dehydrogenase 545 U/L (333-699) 06/26/18 00:18 Total Creatine Kinase 29 U/L (35-230) L 06/26/18 00:18 Troponin I < 0.01 ng/mL 06/26/18 08:30 C-Reactive Protein 8.20 mg/L (0.0-9.9) 06/27/18 08:19 NT-Pro-B Natriuret Pep 284 pg/mL (0-450) 06/26/18 00:18 Total Protein 7.6 g/dL (5.8-8.3) 07/01/18 06:25 Albumin 4.1 g/dL (3.0-4.8) 07/01/18 06:25 Globulin 3.6 gm/dL 07/01/18 06:25 Albumin/Globulin Ratio 1.1 (1.1-1.8) 07/01/18 06:25 Triglycerides 120 mg/dL (35-160) 06/26/18 10:00 Cholesterol 135 mg/dL (130-200) 06/26/18 10:00 LDL Cholesterol Direct 62 mg/dL (0-129) 06/26/18 10:00 HDL Cholesterol 56 mg/dL (29-60) 06/26/18 10:00 TSH 3rd Generation 1.71 mIU/mL (0.46-4.68) 06/27/18 08:19 Urine Color Light yellow (YELLOW) 06/27/18 04:00 Urine Appearance Clear (CLEAR) 06/27/18 04:00 Urine pH 7.0 (4.7-8.0) 06/27/18 04:00 Ur Specific [place] 1.015 (1.005-1.035) 06/27/18 04:00 Urine Protein Negative mg/dL (<30 mg/dL) 06/27/18 04:00 Urine Glucose (UA) Negative mg/dL (NEGATIVE) 06/27/18 04:00 Urine Ketones Negative mg/dL (NEGATIVE) 06/27/18 04:00 Urine Blood Small (NEGATIVE) H 06/27/18 04:00 Urine Nitrate Negative (NEGATIVE) 06/27/18 04:00 Urine Bilirubin Negative (NEGATIVE) 06/27/18 04:00 Urine Urobilinogen 0.2 E.U./dL (<1 E.U./dL) 06/27/18 04:00 Ur Leukocyte Esterase Negative Monica/uL (NEGATIVE) 06/27/18 04:00 Urine RBC 2 - 5 /hpf (0-2) H 06/27/18 04:00 Urine WBC 0 - 2 /hpf (0-6) 06/27/18 04:00 Ur Epithelial Cells None /hpf (0-5) 06/27/18 04:00 Urine Bacteria Occ /hpf (NONE) 06/27/18 04:00 - Hospital Course Hospital Course: 77 year old female, whose past medical history includes CHF, COPD, hyperthyroidism, pancreatitis, pacemaker, depression, and cellulitis, presents to the emergency department complaining of malaise, weakness, chest discomfort, and occasional shortness of breath. Patient denies any nausea, vomiting, diarrhea, any urinary symptoms, or any other complaints at this time. Patient also found to have purulent drainage from left big toe, requiring I&D at bedside. Wound culture grew coag negative staph. Patient was also found to have LE edema bilaterally. Patient was admitted for CHF exacerbation, left big toes abscess. Patient was treated with IV lasix and Kdur with improvement in his edema. Patient was started on IV antbiotics initially. Patient then received a CAT scan foot which was reviewed by Podiatry, and was seen negative for osteomyelitis. Patient was then taken off of antibiotics. Physical therapy evaluated patient and recommended THADDEUS, was placed into [facility]. Patient and family agreed to go to [facility]. Patient advised to resume medications over there and to continue with physical therapy. Case reviewed and discussed with Dr Estrada. Discharge Exam - Head Exam Head Exam: ATRAUMATIC, NORMOCEPHALIC - Additional Findings Additional findings: - Constitutional Appears: Non-toxic, No Acute Distress - Head Exam Head Exam: ATRAUMATIC, NORMOCEPHALIC - Eye Exam Eye Exam: EOMI, PERRL. absent: Conjunctival injection, Nystagmus, Periorbital tenderness, Scleral icterus Pupil Exam: NORMAL ACCOMODATION, PERRL. absent: Irregular, Miosis, Mydriatic, Unequal - ENT Exam ENT Exam: Mucous Membranes Moist - Neck Exam Neck Exam: Full ROM - Respiratory Exam Respiratory Exam: Clear to Ausculation Bilateral, NORMAL BREATHING PATTERN. absent: Accessory Muscle Use, Chest Wall Tenderness, Respiratory Distress, Stridor - Cardiovascular Exam Cardiovascular Exam: RRR, +S1, +S2. absent: Murmur - GI/Abdominal Exam GI & Abdominal Exam: Soft, Normal Bowel Sounds. absent: Firm, Guarding, Rigid, Tenderness, Mass, Organomegaly - Extremities Exam Extremities Exam: absent: Calf Tenderness, Pedal Edema Additional comments: No drainage, warmth, redness. Left big toe covered in optifoam dressing. - Back Exam Back Exam: NORMAL INSPECTION - Neurological Exam Neurological Exam: Alert, Awake, Oriented x3 - Psychiatric Exam Psychiatric exam: Normal Affect, Normal Mood - Skin Skin Exam: Dry, Normal Color, Warm Discharge Plan - Follow Up Plan Condition: STABLE Disposition: REHAB FACILITY/REHAB UNIT Instructions: Chronic Obstructive Pulmonary Disease (COPD), Including Emphysema, Chest Pain (DC) Additional Instructions: Follow up with PMD in 3-5 days of discharge. Follow up with Dr Callahan/Dr Arloro in 1 week for your foot. Take medications as directed. Return to the ER for any worsening of symptoms. <Gregory Estrada - Last Filed: 07/01/18 19:44> Provider - Provider Date of Admission: 06/26/18 02:29 Attending physician: Gregory Estrada MD Consults: 06/26/18 04:46 Social Work Referral Routine Comment: admission assessment protocol Physician Instructions: Reason For Exam: Beatriz score 14 06/26/18 07:33 Consult [Physician Consult] Routine Comment: Consulting Provider: Jefferson Levine Consulting Physician: Jefferson Levine Reason for Consult: CP 06/26/18 10:08 Podiatry Consult Routine Comment: Consulting Provider: Lu Callahan Consulting Physician: Lu Callahan Reason for Consult: Left big toe nail 06/26/18 12:54 Infectious Disease Consult Routine Comment: Consulting Provider: Macho Mark Consulting Physician: Macho Mark Reason for Consult: pus found on the left big toe 06/29/18 14:17 TCU [Evaluation for TRCU] Routine Comment: Physician Instructions: Reason For Exam: weakness 06/30/18 11:26 TCU [Evaluation for TRCU] Routine Comment: Physician Instructions: Reason For Exam: weakness Hospital Course - Lab Results Lab Results: Micro Results 06/26/18 11:45 Toe Gram Stain - Final 06/26/18 11:45 Toe Wound Culture - Final Staphylococcus Sp Coag Neg Most Recent Lab Values WBC 9.1 10^3/uL (4.5-11.0) 06/29/18 18:27 RBC 4.04 10^6/uL (3.5-6.1) 06/29/18 18:27 Hgb 12.7 g/dL (12.0-16.0) 06/29/18 18: Hct 38.8 % (36.0-48.0) 06/29/18 18: MCV 96.0 fl (80.0-105.0) 06/29/18 18:27 MCH 31.4 pg (25.0-35.0) 06/29/18 18: MCHC 32.7 g/dl (31.0-37.0) 06/29/18 18: RDW 14.1 % (11.5-14.5) 06/29/18 18:27 Plt Count 278 10^3/uL (120.0-450.0) 06/29/18 18:27 MPV 10.0 fl (7.0-11.0) 06/29/18 18:27 Neut % (Auto) 50.9 % (50.0-68.0) 06/27/18 08:19 Lymph % (Auto) 33.1 % (22.0-35.0) 06/27/18 08:19 Todd % (Auto) 11.6 % (1.0-6.0) H 06/27/18 08:19 Eos % (Auto) 4.4 % (1.5-5.0) 06/27/18 08:19 Baso % (Auto) 0.0 % (0.0-3.0) 06/27/18 08:19 Lymph # (Auto) 2.0 (1.2-3.4) 06/27/18 08:19 Todd # (Auto) 0.7 (0.1-0.6) H 06/27/18 08:19 Eos # (Auto) 0.3 (0.0-0.7) 06/27/18 08:19 Baso # (Auto) 0.00 K/mm3 (0.0-2.0) 06/27/18 08:19 Absolute Neuts (auto) 3.10 (1.4-6.5) 06/27/18 08:19 ESR 82 mm/hr (0.0-20.0) H 06/27/18 08:19 PT 12.0 SECONDS (9.4-12.5) 06/26/18 00:18 INR 1.08 06/26/18 00:18 APTT 35.1 Seconds (26.9-38.3) 06/26/18 00:18 Sodium 134 mmol/L (132-148) 07/01/18 06:25 Potassium 3.9 mmol/L (3.6-5.0) 07/01/18 06:25 Chloride 88 mmol/L (98-107) L 07/01/18 06:25 Carbon Dioxide 40 mmol/L (21-33) H 07/01/18 06:25 Anion Gap 11 (10-20) 07/01/18 06:25 BUN 30 mg/dL (7-21) H 07/01/18 06:25 Creatinine 1.1 mg/dl (0.7-1.2) 07/01/18 06:25 Est GFR ( Amer) 58 07/01/18 06:25 Est GFR (Non-Af Amer) 48 07/01/18 06:25 POC Glucose (mg/dL) 102 mg/dL (65-110) 07/01/18 07:25 Random Glucose 112 mg/dL (70-110) H 07/01/18 06:25 Hemoglobin A1c 5.4 % (4.2-6.5) 06/27/18 08:19 Calcium 10.5 mg/dL (8.4-10.5) 07/01/18 06:25 Phosphorus 4.5 mg/dL (2.5-4.5) 07/01/18 06:25 Magnesium 2.3 mg/dL (1.7-2.2) H 07/01/18 06:25 Total Bilirubin 0.8 mg/dL (0.2-1.3) 07/01/18 06:25 AST 28 U/L (14-36) 07/01/18 06:25 ALT 13 U/L (7-56) 07/01/18 06:25 Alkaline Phosphatase 97 U/L (38-126) 07/01/18 06:25 Lactate Dehydrogenase 545 U/L (333-699) 06/26/18 00:18 Total Creatine Kinase 29 U/L (35-230) L 06/26/18 00:18 Troponin I < 0.01 ng/mL 06/26/18 08:30 C-Reactive Protein 8.20 mg/L (0.0-9.9) 06/27/18 08:19 NT-Pro-B Natriuret Pep 284 pg/mL (0-450) 06/26/18 00:18 Total Protein 7.6 g/dL (5.8-8.3) 07/01/18 06:25 Albumin 4.1 g/dL (3.0-4.8) 07/01/18 06:25 Globulin 3.6 gm/dL 07/01/18 06:25 Albumin/Globulin Ratio 1.1 (1.1-1.8) 07/01/18 06:25 Triglycerides 120 mg/dL (35-160) 06/26/18 10:00 Cholesterol 135 mg/dL (130-200) 06/26/18 10:00 LDL Cholesterol Direct 62 mg/dL (0-129) 06/26/18 10:00 HDL Cholesterol 56 mg/dL (29-60) 06/26/18 10:00 TSH 3rd Generation 1.71 mIU/mL (0.46-4.68) 06/27/18 08:19 Urine Color Light yellow (YELLOW) 06/27/18 04:00 Urine Appearance Clear (CLEAR) 06/27/18 04:00 Urine pH 7.0 (4.7-8.0) 06/27/18 04:00 Ur Specific [place] 1.015 (1.005-1.035) 06/27/18 04:00 Urine Protein Negative mg/dL (<30 mg/dL) 06/27/18 04:00 Urine Glucose (UA) Negative mg/dL (NEGATIVE) 06/27/18 04:00 Urine Ketones Negative mg/dL (NEGATIVE) 06/27/18 04:00 Urine Blood Small (NEGATIVE) H 06/27/18 04:00 Urine Nitrate Negative (NEGATIVE) 06/27/18 04:00 Urine Bilirubin Negative (NEGATIVE) 06/27/18 04:00 Urine Urobilinogen 0.2 E.U./dL (<1 E.U./dL) 06/27/18 04:00 Ur Leukocyte Esterase Negative Monica/uL (NEGATIVE) 06/27/18 04:00 Urine RBC 2 - 5 /hpf (0-2) H 06/27/18 04:00 Urine WBC 0 - 2 /hpf (0-6) 06/27/18 04:00 Ur Epithelial Cells None /hpf (0-5) 06/27/18 04:00 Urine Bacteria Occ /hpf (NONE) 06/27/18 04:00 - Hospital Course Hospital Course: Pt seen and examined by me. I have reviewed the note of the medical assistant dermatology and I agree with it. I have discussed the assessment and plan with the resident. I have reviewed the medications and the last labs.
--- NOTE | 2018-07-01 14:23 | PN ---
DATE: 07/01/2018 PULMONARY PROGRESS NOTE. REFERRING PHYSICIAN: Dr. Estrada. SUBJECTIVE: The patient is seen, lying in bed, in no acute distress. No overnight events reported. The patient did not use CPAP machine last night. Daughter is at bedside. The patient is scheduled to be discharged to be seen in facility today. OBJECTIVE: GENERAL: No acute distress. VITAL SIGNS: Blood pressure 120/77, pulse 73, temperature 97.4, and oxygen saturation 99% nasal cannula. HEENT: Moist mucous membranes. Mallampati score is 4, crowded airway. NECK: Supple, no JVD. LUNGS: Scattered rhonchi bilaterally. CARDIOVASCULAR: S1 and S2. ABDOMEN: Soft and nontender. No distention, no organomegaly. EXTREMITIES: Trace edema, bilateral lower extremities. Left toe erythema. NEUROLOGIC: Awake and alert, verbal, follows commands. MEDICATIONS: Reviewed. Aspirin 81 mg daily, Lipitor 10 mg daily, Pulmicort 0.5 mg inhalation every 12 hours, Prozac 10 mg daily, Lasix 40 mg twice a day, Xopenex 1.25 mg every 12 hours, Synthroid 100 mcg daily, magnesium oxide 400 mg daily, Bactroban 1 g topically twice a day to affected area, Percocet 10/325 mg every 4 hours p.r.n., MiraLax 17 g twice a day, potassium chloride 20 mg mEq daily, Lyrica 25 mg at bedtime, and spironolactone 50 mg daily. LABORATORY DATA: Reviewed. Sodium 134, potassium 3.9, chloride 88, carbon dioxide 40, anion gap 11, BUN 30, creatinine 1.1, GFR 48, POC glucose 102, random glucose 112, calcium 10.5, phosphorus 4.5, magnesium 2.3, total bilirubin 0.8, AST 28, ALT 13, alkaline phosphatase 97, total protein 7.6, albumin 4.1, globulin 3.6, albumin-globulin ratio 1.1. IMPRESSION AND PLAN: Chronic obstructive lung disease, obstructive sleep apnea syndrome, coronary artery disease, history of L1 fracture, and chronic pain syndrome. The patient was being treated for toe infection. Pulmonary point of view, sleep apnea precautions, head of bed elevated at 45 degrees. Continue inhaled bronchodilators, gastric prophylaxis. Will place on lovenox for deep venous thrombosis prophylaxis. Continue to encourage continuous positive airway pressure use. We recommend this patient have outpatient full pulmonary function test and attend sleep study as outpatient, fall precaution, benefit from physical therapy. The patient was seen and examined with Dr. Simmons. Discussed assessment and plan as described above. The patient was seen and examined with Dileep Og, nurse practitioner. Discussed assessment and plan as described above. Thank you for this consult. We will follow with you. Dileep Og APN Jefferson Simmons MD MTDLorna
--- NOTE | 2018-07-01 22:38 | DS ---
HOSPITAL COURSE: The patient was seen and examined. I do agree with the note of the chief medical director, I was involved in the plan of care. The patient was initially admitted to hospital because she was having lower extremity edema. She had a left toe that was infected. The patient was seen by Podiatry and Infectious Diseases who felt that she does not have osteomyelitis. She had significant amount of diuresis and her lower extremity has improved. The patient currently is feeling well. She has a history of back issues and has been getting physical therapy. She is having difficulty walking, so she will be discharged and sent to the subacute facility. She has a history of CHF secondary to systolic dysfunction, she is going to continue diuretics therapy. The patient is currently comfortable and will be leaving for [facility] today. Gregory Estrada MD
--- NOTE | 2018-07-02 09:12 | PN ---
DATE: 07/01/2018 SUBJECTIVE: The patient is seen in bed, in no acute distress. Nontoxic. PHYSICAL EXAMINATION: VITAL SIGNS: Temperature is 97, blood pressure is 120/70 and respiratory rate 20 HEENT: Unremarkable. NECK: Supple. LUNGS: Decreased breath sounds. HEART: Normal, S1 and S2. ABDOMEN: Soft and nontender. ASSESSMENT AND PLAN: This is a 78-year-old female seen earlier who was admitted with chest pain found to have left big toe ingrown nail plus coagulase-negative and at this time no further antibiotics. The Podiatry feels there is no osteomyelitis and we will follow closely with you. Macho Mark MD
[2018-07-02] MEDS ORDERED: Enoxaparin 40 mg Syringe SC SCH (10:00)
== END 2018-07-01 14:16 | DRG 602 ==
LOC: ED 23:37 → ERH 06-26 02:29 → OBSVTOIN 06-26 02:29 → ERH 06-26 02:57 → 2RNO 06-26 04:21 → 3RNO 06-26 19:19
PROVIDERS: ADMIT Internal Medicine Nephrology; ATTEND Internal Medicine Nephrology
PROC: 0H9NXZZ Drainage of Left Foot Skin, External Approach (ICD-10-PCS; principal; 2018-06-26)
DX: L03.032 Cellulitis of left toe (principal); I50.43 Acute on chronic combined systolic (congestive) and diastolic (congestive) heart failure; L03.115 Cellulitis of right lower limb; L03.116 Cellulitis of left lower limb; N17.9 Acute kidney failure, unspecified; L02.612 Cutaneous abscess of left foot; L60.0 Ingrowing nail; I11.0 Hypertensive heart disease with heart failure; J44.9 Chronic obstructive pulmonary disease, unspecified; R07.89 Other chest pain; R53.81 Other malaise; E03.9 Hypothyroidism, unspecified; I25.10 Atherosclerotic heart disease of native coronary artery without angina pectoris; R26.2 Difficulty in walking, not elsewhere classified; I35.1 Nonrheumatic aortic (valve) insufficiency; I48.0 Paroxysmal atrial fibrillation; F32.9 Major depressive disorder, single episode, unspecified; F41.9 Anxiety disorder, unspecified; I27.20 Pulmonary hypertension, unspecified; G62.9 Polyneuropathy, unspecified; Z95.0 Presence of cardiac pacemaker; Z87.891 Personal history of nicotine dependence; E05.90 Thyrotoxicosis, unspecified without thyrotoxic crisis or storm; E11.9 Type 2 diabetes mellitus without complications; E78.00 Pure hypercholesterolemia, unspecified; E78.5 Hyperlipidemia, unspecified; G47.33 Obstructive sleep apnea (adult) (pediatric); G89.4 Chronic pain syndrome; H91.90 Unspecified hearing loss, unspecified ear; K21.9 Gastro-esophageal reflux disease without esophagitis; Z79.82 Long term (current) use of aspirin; Z79.890 Hormone replacement therapy; Z79.899 Other long term (current) drug therapy; Z86.010 Personal history of colon polyps; Z99.81 Dependence on supplemental oxygen; Z88.1 Allergy status to other antibiotic agents; Z87.892 Personal history of anaphylaxis; Z98.49 Cataract extraction status, unspecified eye

== ENCOUNTER 2018-07-13 11:06 | Inpatient (IN) | payer MEDICARE, OTHER ==
[2018-07-13 11:24] VITALS: BMI 29.7
[2018-07-13] MEDS ORDERED: Sodium Chloride 0.9% 500 ML IV STA (11:35)
[2018-07-13] MEDS ORDERED: Morphine 4 mg/ml ISec IVP STA (11:35)
--- NOTE | 2018-07-13 11:35 | ED PDOC ---
Arrival/HPI - General Time Seen by Provider: 07/13/18 11:06 Historian: Patient, Family - History of Present Illness Narrative History of Present Illness (Text): 07/13/18 11:31 78 year old female, with PMHx of back surgery in April 2018, CAD, COPD, chron ic lung disease and O2 dependence, CHF, hypothyroidism, HLD, LE cellulitis, pancreatitis, anxiety disorder and depression, presents to the ED accompanied by family for evaluation of generalized fatigue, increased confusion and lower back pain since discharge from the hospital on 07/01/18. Patient reportedly experienced a mechanical fall on 06/26/18 sustaining discomfort to her lower back and had a negative CT of lumbar spine performed, significant for previous vertebroplasty at L1 only. Patient was admitted to the hospital for further observation of COPD exacerbation at the time and discharged on 07/01/18 after improvement to symptoms. As per family, patient has been expressing generalized fatigue associated with mild confusion since discharge and reports lower back pain and bilateral lower extremity discomfort. They report a fall at [facility] on 07/01. Patient reports slow ambulation secondary to fatigue but denies any other associated somatic complaints. Patient denies any urinary or fecal incontinence, paresthesias, saddle anesthesia, fever, chills, nausea, vomiting, diarrhea, abdominal pain, chest pain, shortness of breath, headache,. PMD: Dr. Estrada 07/13/18 12:33 07/13/18 15:43 Time/Duration: 1 week Symptom Onset: Gradual Symptom Course: Unchanged Activities at Onset: Light Context: Home Past Medical History - Provider Review Nursing Documentation Reviewed: Yes - Infectious Disease Hx of Infectious Diseases: None - Tetanus Immunization Tetanus Immunization: Unknown - Cardiac Hx Cardiac Disorders: Yes Hx Congestive Heart Failure: Yes - Pulmonary Hx Chronic Obstructive Pulmonary Disease (COPD): Yes - Neurological Hx Neurological Disorder: Yes Hx Dizziness: Yes Hx Migraine: Yes - HEENT Hx HEENT Disorder: Yes ([place]) Hx Cataracts: Yes (PAST SX) Hx Deafness: Yes - Renal Hx Renal Disorder: No - Endocrine/Metabolic Hx Hypothyroidism: Yes - Hematological/Oncological Hx Blood Disorders: No - Integumentary Hx Dermatological Disorder: Yes Other/Comment: Hx of bilateral LE cellulitis - Musculoskeletal/Rheumatological Hx Musculoskeletal Disorders: Yes Hx Back Pain: Yes Hx Falls: Yes Hx Fractures: Yes (compression fx L1 w/ kyphoplasty 05/11/18) Hx Unsteady Gait: Yes - Gastrointestinal Hx Gastrointestinal Disorders: Yes (COLON POLYPS,CONSTIPATION,GERD,DEIVE RTICULITIS,) Other/Comment: constipation - Genitourinary/Gynecological Hx Genitourinary Disorders: Yes Hx Incontinence: Yes - Psychiatric Hx Psychophysiologic Disorder: No Hx Substance Use: No (denies) - Surgical History Hx Orthopedic Surgery: Yes (r knee) Other/Comment: carpal tunnel right hand, colonoscopies, left neck tumor, pacemaker 1999, generator change 2007, cardiac ablation, b/l cataract sx, t&a, kyphoplasty to L1 2019 - Anesthesia Hx Anesthesia Reactions: No Hx Malignant Hyperthermia: No - Suicidal Assessment Feels Threatened In Home Enviroment: No Family/Social History - Physician Review Nursing Documentation Reviewed: Yes Family/Social History: Unknown Family HX Smoking Status: Former Smoker Hx Alcohol Use: No (denies) Hx Substance Use: No (denies) Allergies/Home Meds Allergies/Adverse Reactions: Allergies levofloxacin [From Levaquin] Allergy (Severe, Verified 07/13/18 11:23) ANAPHYLAXIS ceftriaxone [From Rocephin] Allergy (Verified 07/13/18 11:23) RASH Home Medications: Home Meds Medication Instructions Recorded Confirmed Albuterol 0.083% [Albuterol 0.083% 1 insert PO BID 06/26/18 06/26/18 Inhal Marylin (2.5 mg/3 ml) UD] Magnesium Oxide [Magox 400] 400 mg PO DAILY 06/26/18 06/26/18 Potassium Chloride [K-Dur 20 mEq 20 meq PO DAILY 06/26/18 06/26/18 ER Tab] Spironolactone [Aldactone] 50 mg PO DAILY 06/26/18 06/26/18 Tiotropium [place] [Spiriva 1.25 mcg IH DAILY 06/26/18 06/26/18 Respimat] Review of Systems - Review of Systems Constitutional: Fatigue Eyes: absent: Vision Changes ENT: absent: Hearing Changes Respiratory: absent: SOB, Cough Cardiovascular: absent: Chest Pain, CHOW, Syncope Gastrointestinal: Diarrhea. absent: Abdominal Pain, Nausea, Vomiting Musculoskeletal: Back Pain. absent: Neck Pain Skin: absent: Rash Neurological: absent: Headache, Dizziness Endocrine: absent: Diaphoresis Physical Exam Vital Signs Reviewed: Yes Temperature: Afebrile Blood Pressure: Normal Pulse: Regular Respiratory Rate: Normal Appearance: Positive for: Well-Appearing Pain Distress: None Mental Status: Positive for: Confused (Alert and oriented x2 ) - Systems Exam Head: Present: Atraumatic, Normocephalic Pupils: Present: PERRL Extroacular Muscles: Present: EOMI Conjunctiva: Present: Normal Mouth: Present: Dry Neck: Present: Normal Range of Motion. No: MIDLINE TENDERNESS, Paraspinal Tenderness Respiratory/Chest: Present: Clear to Auscultation, Good Air Exchange. No: Respiratory Distress, Accessory Muscle Use Cardiovascular: Present: Regular Rate and Rhythm, Normal S1, S2. No: Murmurs Abdomen: No: Tenderness, Distention, Peritoneal Signs Rectal: Present: Other (pressure ulcer sacrum) Back: Present: Midline Tenderness (Midline lumbar tenderness) Upper Extremity: Present: Normal Inspection, Neurovascularly Intact. No: Cyanosis, Edema Lower Extremity: Present: Edema (Bilateral lower extremity pitting edema), Neurovascularly Intact Neurological: Present: GCS=15, Speech Normal, Other (extremities x 4) Skin: Present: Warm, Dry, Normal Color. No: Rashes Psychiatric: Present: Alert, Other (Appears fatigue) Medical Decision Making ED Course and Treatment: 07/13/18 11:50 Impression: 78 year old female presents to the ED for evaluation of generalized fatigue, confusion and lower back pain. Plan: -- CT of Head -- CT of Lumbar Spine -- Labs -- EKG -- Morphine -- IV Fluids -- Urinalysis -- Urine Culture -- Reassess and disposition Prior Visits: Notes and results from previous visits were reviewed. Progress Notes: 07/13/18 12:55 CT of Head reviewed by radiologist, shows: IMPRESSION: No acute intracranial hemorrhage. Questionable mild chronic periventricular white matter ischemic changes. Mild atrophy. Questionable mild right periorbital soft tissue swelling. Changes of bilateral cataract surgery again noted. 07/13/18 12:59 CXR reviewed by radiologist, shows no active disease. 07/13/18 12:59 EKG reviewed, shows NSR at approximately 80 bpm, normal interval, normal axis, no ST/T wave changes. 07/13/18 13:11 CT of Lumbar Spine reviewed by radiologist, shows: FINDINGS: VERTEBRAE: Redemonstrated is kyphoplasty cement within a partially collapsed L1 vertebral body segment associated with mild retropulsion of the posterior superior cortex more so slightly larger on the left than right unchanged from prior study. The remaining vertebral bodies otherwise exhibit relatively normal stature aside from minor fish-mouth endplate deformities.. There is a mild levoscoliosis centered at the L1-L2 2 level. DISCS/SPINAL CANAL/NEURAL FORAMINA: Minor multilevel degenerative spondylosis. At the T12-L1 level, there is mild disc space narrowing with vacuum disc phe nomenon not withstanding the superior endplate deformity of the L1 segment. No disc herniation is seen at this level. L1-2: Minor broad-based bulge of the posterior annulus seen extending into the proximal inferior margins of both exit foramina more so on the right than the left. The overall central bony canal and exit foramina adequate. L2-3: Minor broad-based bulge of the posterior annulus is also seen extending slightly into the proximal inferior margins of both exit foramina.. Facets are slightly overgrown central canal and exit foramina are also adequate. L3-4: Mild moderate broad-based bulge of the posterior annulus flattens the ventral surface of the thecal sac and extends slightly into the proximal inferior margins of both exit foramina right greater than left. Facet joints are mildly hypertrophic. The overall central canal and exit foramina appear adequate. L4-5: Mild broad-based bulge of the posterior annulus also extends into the proximal inferior margins of both exit foramina with flattening of the ventral surface of the thecal sac. Facets are mildly hypertrophic. Exit foramina adequate L5-S1:. Minor broad-based bulge of the posterior annulus is present. No evidenc e of significant canal nor foraminal stenosis. Facets are hypertrophic. PARASPINAL SOFT TISSUES: Unremarkable. OTHER FINDINGS: Calcified atherosclerotic plaque abdominal aorta and iliac arteries. Note made of multiple diverticula arising from the sigmoid colon. No radiographic evidence of acute diverticulitis. IMPRESSION: Kyphoplasty cement again seen within a partially collapsed L1 vertebral body segment which is associated with mild retropulsion of the posterior superior corner of the L1 segment left slightly larger than right. No acute fractures. Multilevel degenerative spondylosis. Diverticulosis without radiographic evidence of acute diverticulitis. 07/13/18 13:55 Patient is clearly confused and AAOx2. Family report that this is not her baseline and wondering if there is some element of polypharmacy. Patient appears deconditioned. Family reports that patient used to be able to ambulate with walker to bathroom and now can barely use commode. Called PT to evaluate 07/13/18 15:03 Patient evaluated by PT. Patient unable to ambulate secondary to pain. Will transfer to [facility] for PT/OT, medication optimization, and likely placement back at half-way due to deconditioning (recently signed out AMA) 07/13/18 15:44 - RAD Interpretation [place] Gilder: Radiologist - EKG Interpretation Interpreted by ED Physician: Yes Type: 12 lead EKG - Scribe Statement The provider has reviewed the documentation as recorded by the Scribe Gregoria Hightower. All medical record entries made by the Scribe were at my direction and personally dictated by me. I have reviewed the chart and agree that the record accurately reflects my personal performance of the history, physical exam, medical decision making, and the department course for this patient. I have also personally directed, reviewed, and agree with the discharge instructions and disposition. Disposition/Present on Arrival - Present on Arrival Any Indicators Present on Arrival: No History of DVT/PE: No History of Uncontrolled Diabetes: No Urinary Catheter: No History Surgical Site Infection Following: None - Disposition Have Diagnosis and Disposition been Completed?: Yes Diagnosis: Muscular deconditioning, Altered mental status, Back pain Disposition: HOSPITALIZED Disposition Time: 13:58 Patient Plan: Observation Condition: FAIR
[2018-07-13 12:00] LABS: BASO # 0.02 K/mm3 (0.0-2.0); BASO % 0.2 % (0.0-3.0); EOS # 0.2 (0.0-0.7); EOS % 1.7 % (1.5-5.0); HEMOGLOBIN 14.2 g/dL (12.0-16.0); LYMPH # 1.9 (1.2-3.4); LYMPH % 18.6 % (22.0-35.0); MEAN CELL VOLUME 94.2 fl (80.0-105.0); MEAN CORPUSCULAR HEMOGLOBIN 31.6 pg (25.0-35.0); MEAN CORPUSCULAR HGB CONC 33.5 g/dl (31.0-37.0); MEAN PLATELET VOLUME 10.3 fl (7.0-11.0); MONO # 0.8 (0.1-0.6); RBC 4.5 10^6/uL (3.5-6.1); RED CELL DISTRIBUTION WIDTH 13.8 % (11.5-14.5); WHITE BLOOD COUNT 10.2 10^3/uL (4.5-11.0)
[2018-07-13 12:05] LABS: INR 1.19; PARTIAL THROMBOPLASTIN TIME 40.8 Seconds (26.9-38.3); PROTHROMBIN TIME 13.4 SECONDS (9.4-12.5)
[2018-07-13 12:10] LABS: ALB/GLOB RATIO 1.2 (1.1-1.8); ALT/SGPT 28 U/L (7-56); AST/SGOT 35 U/L (14-36); BLOOD UREA NITROGEN 27 mg/dL (7-21); GFR NON-AFRICAN AMERICAN 48; LIPASE 108 U/L (23-300)
--- NOTE | 2018-07-13 12:16 | CT ---
Date of service: 07/13/2018 PROCEDURE: CT HEAD WITHOUT CONTRAST. HISTORY: AMS COMPARISON: Comparison made with prior CT scan brain 11/11/2017. TECHNIQUE: Axial computed tomography images were obtained through the head/brain without intravenous contrast. Radiation dose: Total exam DLP = 1112.38 mGy-cm. This CT exam was performed using one or more of the following dose reduction techniques: Automated exposure control, adjustment of the mA and/or kV according to patient size, and/or use of iterative reconstruction technique. FINDINGS: HEMORRHAGE: No intracranial hemorrhage. BRAIN: There appears to be mild diffuse/confluent chronic periventricular white matter ischemic changes.. Mild atrophy. VENTRICLES: No obstructive hydrocephalus however persistent asymmetry of the lateral ventricles right-sided which remains larger than the left felt to represent an anatomic variation. CALVARIUM: Calvarium intact. PARANASAL SINUSES: Mild polypoid like mucosal thickening right chamber sphenoid sinus. MASTOID AIR CELLS: Unremarkable as visualized. No inflammatory changes. OTHER FINDINGS: Questionable mild right periorbital soft tissue swelling changes of bilateral cataract surgery again noted. IMPRESSION: No acute intracranial hemorrhage. Questionable mild chronic periventricular white matter ischemic changes. Mild atrophy. Questionable mild right periorbital soft tissue swelling. Changes of bilateral cataract surgery again noted.
[2018-07-13 12:19] LABS: B-TYPE NATRIURETIC PEPTIDE 362 pg/mL (0-450); TROPONIN I < 0.01 ng/mL
--- NOTE | 2018-07-13 12:26 | RAD ---
Date of service: 07/13/2018 HISTORY: fatigue COMPARISON: 06/26/2018 FINDINGS: LUNGS: No active pulmonary disease. PLEURA: No significant pleural effusion identified, no pneumothorax apparent. CARDIOVASCULAR: Aortic calcification Mild cardiomegaly no pulmonary vascular congestion. OSSEOUS STRUCTURES: No significant abnormalities. VISUALIZED UPPER ABDOMEN: Normal. OTHER FINDINGS: Dual lead pacemaker IMPRESSION: No active disease.
--- NOTE | 2018-07-13 12:54 | CT ---
Date of service: 07/13/2018 PROCEDURE: CT Lumbar Spine without contrast HISTORY: Status post fall with midline pain; history of surgery, COMPARISON: Non comparison made with prior CT scan of the lumbar spine 06/26/2018. TECHNIQUE: Axial computed tomography images were obtained of the lumbar spine without the use of intravenous contrast. Coronal and sagittal reformatted images were created and reviewed. Radiation dose: Total exam DLP = 1545.01 mGy-cm. This CT exam was performed using one or more of the following dose reduction techniques: Automated exposure control, adjustment of the mA and/or kV according to patient size, and/or use of iterative reconstruction technique. FINDINGS: VERTEBRAE: Redemonstrated is kyphoplasty cement within a partially collapsed L1 vertebral body segment associated with mild retropulsion of the posterior superior cortex more so slightly larger on the left than right unchanged from prior study. The remaining vertebral bodies otherwise exhibit relatively normal stature aside from minor fish-mouth endplate deformities.. There is a mild levoscoliosis centered at the L1-L2 2 level. DISCS/SPINAL CANAL/NEURAL FORAMINA: Minor multilevel degenerative spondylosis. At the T12-L1 level, there is mild disc space narrowing with vacuum disc phenomenon not withstanding the superior endplate deformity of the L1 segment. No disc herniation is seen at this level. L1-2: Minor broad-based bulge of the posterior annulus seen extending into the proximal inferior margins of both exit foramina more so on the right than the left. The overall central bony canal and exit foramina adequate. L2-3: Minor broad-based bulge of the posterior annulus is also seen extending slightly into the proximal inferior margins of both exit foramina.. Facets are slightly overgrown central canal and exit foramina are also adequate. L3-4: Mild moderate broad-based bulge of the posterior annulus flattens the ventral surface of the thecal sac and extends slightly into the proximal inferior margins of both exit foramina right greater than left. Facet joints are mildly hypertrophic. The overall central canal and exit foramina appear adequate. L4-5: Mild broad-based bulge of the posterior annulus also extends into the proximal inferior margins of both exit foramina with flattening of the ventral surface of the thecal sac. Facets are mildly hypertrophic. Exit foramina adequate L5-S1:. Minor broad-based bulge of the posterior annulus is present. No evidence of significant canal nor foraminal stenosis. Facets are hypertrophic. PARASPINAL SOFT TISSUES: Unremarkable. OTHER FINDINGS: Calcified atherosclerotic plaque abdominal aorta and iliac arteries. Note made of multiple diverticula arising from the sigmoid colon. No radiographic evidence of acute diverticulitis. IMPRESSION: Kyphoplasty cement again seen within a partially collapsed L1 vertebral body segment which is associated with mild retropulsion of the posterior superior corner of the L1 segment left slightly larger than right. No acute fractures. Multilevel degenerative spondylosis. Diverticulosis without radiographic evidence of acute diverticulitis.
[2018-07-13 13:37] LABS: URINE BILIRUBIN MODERATE (NEGATIVE); URINE BLOOD NEGATIVE (NEGATIVE); URINE GLUCOSE (UA) NEGATIVE (NEGATIVE); URINE LEUKOCYTE ESTERASE TRACE Leu/uL (NEGATIVE); URINE PROTEIN NEGATIVE mg/dL (<30 mg/dL); URINE UROBILINOGEN 0.2 E.U./dL (<1 E.U./dL)
[2018-07-13 13:39] LABS: URINE APPEARANCE CLEAR (CLEAR); URINE COLOR YELLOW (YELLOW)
[2018-07-13 13:56] LABS: URINE BACTERIA FEW /hpf
[2018-07-13] MEDS ORDERED: Albuterol-Ipratrop 3 mg / 0.5 (3 ml) UD IH PRN (17:51)
[2018-07-13] MEDS ORDERED: Furosemide 40 mg/5 mL Oral Soln UD PO SCH (18:00)
--- NOTE | 2018-07-13 22:42 | CARD ---
APPROVED REPORT Date of service: 07/13/2018 EKG Measurement Heart [id number] <Conclusion> Sinus rhythm with 1st degree AV block Right axis deviation Possible Right ventricular hypertrophy Abnormal ECG
[2018-07-13] MEDS ORDERED: Influenza Vaccine 60 mcg/0.5 mL SYR (4YR UP) IM ONE (23:02)
[2018-07-13] MEDS ORDERED: Pneumococcal 23-Valent Vaccine IM ONE (23:02)
[2018-07-14] MEDS: Levothyroxine 100 MCG TAB PO SCH (05:45)
[2018-07-14] MEDS: Cholecalciferol 1,000 INTLU TAB PO SCH (10:51)
--- NOTE | 2018-07-14 11:06 | CP.PCM.HP ---
<Milton Marquis - Last Filed: 07/14/18 10:52> History of Present Illness - History of Present Illness History of Present Illness: 78 year old female with medical history of CAD, Pacemaker, COPD on home O2, diastolic CHF, hypothyroidism, HLD, pancreatitis, anxiety disorder and depression presents to the hospital for worsening altered mental status. Patient was recently admitted for Kyphoplasty and CHF exacerbation. Patient was discharged to [facility] for rehab where she signed out AMA. Family states patient has demonstrated worsening AMS since discharge. Patient is now confused, not able to perform activities of daily living. Patient is currently oriented x1 and unable to provide medical history. Prior medical charts reviewed. Medical Hx: as above Meds: Reviewed, as per MAR Allergies: levofloxacin, ceftriaxone Family Hx: Unable to obtain Social Hx: Former tobacco use. Denies alcohol or illicit drug use. Present on Admission - Present on Admission Any Indicators Present on Admission: No Review of Systems - Review of Systems Systems not reviewed;Unavailable: Altered Mental Status Past Patient History - Infectious Disease Hx of Infectious Diseases: None - Tetanus Immunizations Tetanus Immunization: Unknown - Past Medical History & Family History Past Medical History?: Yes - Past Social History Smoking Status: Former Smoker - CARDIAC Hx Cardiac Disorders: Yes Hx Congestive Heart Failure: Yes - PULMONARY Hx Chronic Obstructive Pulmonary Disease (COPD): Yes - NEUROLOGICAL Hx Neurological Disorder: Yes Hx Dizziness: Yes Hx Migraine: Yes - HEENT Hx HEENT Problems: Yes ([place]) Hx Cataracts: Yes (PAST SX) Hx Deafness: Yes - RENAL Hx Chronic Kidney Disease: No - ENDOCRINE/METABOLIC Hx Endocrine Disorders: Yes Hx Hypothyroidism: Yes - HEMATOLOGICAL/ONCOLOGICAL Hx Blood Disorders: No - INTEGUMENTARY Hx Dermatological Problems: Yes Other/Comment: Hx of bilateral LE cellulitis - MUSCULOSKELETAL/RHEUMATOLOGICAL Hx Musculoskeletal Disorders: Yes Hx Back Pain: Yes Hx Falls: Yes Hx Fractures: Yes (compression fx L1 w/ kyphoplasty 05/11/18) Hx Unsteady Gait: Yes - GASTROINTESTINAL Hx Gastrointestinal Disorders: Yes (COLON POLYPS,CONSTIPATION,GERD,DEIVERTICULITIS,) Other/Comment: constipation - GENITOURINARY/GYNECOLOGICAL Hx Genitourinary Disorders: Yes Hx Incontinence: Yes - PSYCHIATRIC Hx Psychophysiologic Disorder: No Hx Substance Use: No - SURGICAL HISTORY Hx Surgeries: Yes Hx Orthopedic Surgery: Yes (r knee) Other/Comment: carpal tunnel right hand, colonoscopies, left neck tumor, pacemaker 1999, generator change 2007, cardiac ablation, b/l cataract sx, t&a, kyphoplasty to L1 2018 - ANESTHESIA Hx Anesthesia Reactions: No Hx Malignant Hyperthermia: No Meds Allergies/Adverse Reactions: Allergies Allergy/AdvReac Type Severity Reaction Status Date / Time levofloxacin [From Levaquin] Allergy Severe ANAPHYLAXIS Verified 07/13/18 20:14 ceftriaxone [From Rocephin] Allergy RASH Verified 07/13/18 20:14 Physical Exam - Constitutional Appears: Non-toxic, No Acute Distress - Head Exam Head Exam: ATRAUMATIC, NORMAL INSPECTION, NORMOCEPHALIC - Eye Exam Eye Exam: EOMI, Normal appearance - ENT Exam ENT Exam: Mucous Membranes Moist - Respiratory Exam Respiratory Exam: Decreased Breath Sounds, NORMAL BREATHING PATTERN - Cardiovascular Exam Cardiovascular Exam: RRR, +S1, +S2 - GI/Abdominal Exam GI & Abdominal Exam: Normal Bowel Sounds, Soft. absent: Tenderness - Extremities Exam Extremities exam: Positive for: tenderness (b/l lower extremities ). Negative for: pedal edema - Neurological Exam Neurological exam: Alert, CN II-XII Intact Additional comments: Oriented x 1 - Psychiatric Exam Psychiatric exam: Normal Affect, Normal Mood - Skin Skin Exam: Dry, Intact, Warm Results - Vital Signs Recent Vital Signs: Last Vital Signs Temp 98.3 F 07/14/18 06:00 Pulse 98 H 07/14/18 06:00 Resp 18 07/14/18 06:00 BP 129/63 07/14/18 06:00 Pulse Ox 95 07/14/18 06:00 - Labs Result Diagrams: 07/13/18 11:45 07/13/18 11:45 Labs: Laboratory Results - last 24 hr 07/13/18 07/13/18 07/13/18 11:45 11:45 11:45 WBC 10.2 RBC 4.50 Hgb 14.2 Hct 42.4 MCV 94.2 MCH 31.6 MCHC 33.5 RDW 13.8 Plt Count 360 MPV 10.3 Neut % (Auto) 71.5 H Lymph % (Auto) 18.6 L Ellis % (Auto) 8.0 H Eos % (Auto) 1.7 Baso % (Auto) 0.2 Lymph # (Auto) 1.9 Ellis # (Auto) 0.8 H Eos # (Auto) 0.2 Baso # (Auto) 0.02 Absolute Neuts (auto) 7.32 H PT 13.4 H INR 1.19 APTT 40.8 H Sodium 137 Potassium 5.1 H Chloride 99 Carbon Dioxide 23 Anion Gap 20 BUN 27 H Creatinine 1.1 Est GFR ( Amer) 58 Est GFR (Non-Af Amer) 48 Random Glucose 89 Calcium 11.0 H Phosphorus 3.7 Magnesium 2.4 H Total Bilirubin 0.7 AST 35 ALT 28 Alkaline Phosphatase 103 Total Creatine Kinase 98 Troponin I < 0.01 NT-Pro-B Natriuret Pep 362 Total Protein 7.4 Albumin 4.0 Globulin 3.4 Albumin/Globulin Ratio 1.2 Lipase 108 Urine Color Urine Appearance Urine pH Ur Specific [place] Urine Protein Urine Glucose (UA) Urine Ketones Urine Blood Urine Nitrate Urine Bilirubin Urine Urobilinogen Ur Leukocyte Esterase Urine RBC Urine WBC Ur Epithelial Cells Urine Bacteria 07/13/18 13:24 WBC RBC Hgb Hct MCV MCH MCHC RDW Plt Count MPV Neut % (Auto) Lymph % (Auto) Ellis % (Auto) Eos % (Auto) Baso % (Auto) Lymph # (Auto) Ellis # (Auto) Eos # (Auto) Baso # (Auto) Absolute Neuts (auto) PT INR APTT Sodium Potassium Chloride Carbon Dioxide Anion Gap BUN Creatinine Est GFR ( Amer) Est GFR (Non-Af Amer) Random Glucose Calcium Phosphorus Magnesium Total Bilirubin AST ALT Alkaline Phosphatase Total Creatine Kinase Troponin I NT-Pro-B Natriuret Pep Total Protein Albumin Globulin Albumin/Globulin Ratio Lipase Urine Color Yellow Urine Appearance Clear Urine pH 6.0 Ur Specific [place] 1.025 Urine Protein Negative Urine Glucose (UA) Negative Urine Ketones Trace H Urine Blood Negative Urine Nitrate Negative Urine Bilirubin Moderate H Urine Urobilinogen 0.2 Ur Leukocyte Esterase Trace H Urine RBC None Urine WBC 1 - 3 Ur Epithelial Cells 4 - 5 Urine Bacteria Few Assessment & Plan - Assessment and Plan (Free Text) Plan: 1. Altered mental status 2. B/l lower extremity pain 3. Chronic respiratory failure 4. COPD on home O2 5. Diastolic CHF 6. Pacemaker 7. Hypothyroidism 8. HLD Patient admitted for altered mental status. Patient chest x-ray, lab work, and EKG reviewed. Head CT reviewed which demonstrates chronic white matter changes with no acute pathology noted. CT lumbar spine shows partially collapsed L1 spine with previous Kyphoplasty. After discussion with IR, no further intervention at this time. Patient will be evaluated by Neurology for lower extremity pain and altered mental status. Patient will continue on O2 and duonebs as needed for COPD. Patient will continue on ASA, lipitor, Aldactone, Lopressor, and Lasix for CHF. Patient will continue on Levothyroxine for hypothyroidism and Tramadol for pain. Patient will be seen by physical therapy. <Gregory Estrada - Last Filed: 07/14/18 18:06> Results - Vital Signs Recent Vital Signs: Last Vital Signs Temp 97.4 F L 07/14/18 14:00 Pulse 76 07/14/18 14:00 Resp 18 07/14/18 14:00 BP 136/75 07/14/18 14:00 Pulse Ox 97 07/14/18 14:00 - Labs Result Diagrams: 07/13/18 11:45 07/13/18 11:45 Labs: Laboratory Results - last 24 hr 07/14/18 15:20 pCO2 36 pO2 104.0 H HCO3 23.9 ABG pH 7.43 ABG Total CO2 25.0 ABG O2 Saturation 99.7 H ABG O2 Content 18.1 ABG Base Excess -0.1 ABG Hemoglobin 13.3 ABG Carboxyhemoglobin 2.1 H POC ABG HHb (Measured) 0.3 ABG Methemoglobin 1.3 ABG O2 Capacity 18.2 Hgb O2 Saturation 96.3 FiO2 28.0 Assessment & Plan - Assessment and Plan (Free Text) Plan: Pt seen and examined by me. I have reviewed the note of the medical clinic manager and I agree with it. I have discussed the assessment and plan with the resident. I have reviewed the medications and the last labs.
[2018-07-14 15:24] LABS: ARTERIAL BLOOD GAS HCO3 23.9 mmol/L (21-28); ARTERIAL BLOOD GAS HEMOGLOBIN 13.3 g/dL (11.7-17.4); ARTERIAL BLOOD GAS O2 CAPACITY 18.2 mL/dl (16-24); ARTERIAL BLOOD GAS O2 CONTENT 18.1 ML/dl (15-23); ARTERIAL BLOOD GAS O2 SAT 99.7 % (95-98); ARTERIAL BLOOD GAS PCO2 36 mm/Hg (35-45); ARTERIAL BLOOD GAS PH 7.43 (7.35-7.45)
--- NOTE | 2018-07-14 19:13 | CON ---
DATE: 07/14/2018 NEUROLOGY CONSULTATION CHIEF COMPLAINT: Low back pain and confusion. HISTORY OF PRESENT ILLNESS: This is a 78-year-old woman with a history of coronary artery disease, pacemaker, COPD on home oxygen, diastolic CHF, hypothyroidism, hyperlipidemia, pancreatitis, anxiety disorder, depression, who came into the hospital for worsening altered mental status, who has had a kyphoplasty, which is seen on the CAT scan of the lumbosacral spine, showing kyphoplasty again seen with a partially collapsed L1 vertebral body associated with mild repulsion of the posterior superior corner of the L1 segment, left greater than right with multilevel degenerative spondylosis seen mostly at L3 to L4 and L4 to L5 level. She just went to [facility] for rehab where she signed out AMA and family states that the patient demonstrated worsening confusion and now is to go to the hospital. Currently she is alert and oriented x2. She follows simple commands, moving all extremities and still has low back pain radiating down to the buttocks bilaterally. She is in a very deconditioned state. PAST MEDICAL HISTORY: As above. SOCIAL HISTORY: No illicit drug use, smoking or EtOH abuse. ALLERGIES: TO LEVAQUIN AND CEFUROXIME. REVIEW OF SYSTEMS: A 14-point review of systems is negative except as per the HPI. LABORATORY DATA: Sodium is 137, potassium 5.1, chloride 99, carbon dioxide 23, BUN of 27, creatinine of 1.1, random glucose of 89. PHYSICAL EXAMINATION GENERAL: The patient is seen up in bed, in no acute distress. VITAL SIGNS: Temperature 97.4, pulse rate of 76, blood pressure 136/75, respiratory rate 18, oxygen saturation 97% on room air. HEENT: Atraumatic, normocephalic. PERRLA. Extraocular muscles are intact. NECK: Supple. No JVD. No adenopathy noted. LUNGS: Clear to auscultation. No adventitious sounds. HEART: S1 and S2, normal rate and rhythm. No murmurs, rubs, or gallops. ABDOMEN: Soft, nontender, and nondistended. Bowel sounds are present. EXTREMITIES: No clubbing. No cyanosis. Peripheral pulses 2+ felt bilaterally. NEUROLOGIC: The patient is alert and oriented to person and place. Recall after 5 minutes is 0/3. Poor attention span. Slow thought process. Cranial nerves II through XII are intact. Motor exam; moves all extremities equally. No pronator drift seen. She is very deconditioned. Sensory; decreased light touch and pinprick proprioception up to the calves bilaterally. Decreased vibration at the toes. DTRs are 2+ throughout and 1 at both knees and ankles. Coordination; [id number] intact. No dysmetria noted. Gait is deferred for now. ASSESSMENT AND PLAN: This is a 78-year-old woman with history of chronic respiratory failure, chronic obstructive pulmonary disease on home oxygen, diastolic congestive heart failure, pacemaker, hypothyroidism, hyperlipidemia, history of recent kyphoplasty on the L5 partially collapsed body, seen on the CAT scan of the lumbosacral spine with multilevel degenerative spondylosis from L3 to L5 level. I was called for transient altered mental status as well as low back pain and bilateral lower extremity pain. At this time, her altered mental status is secondary to transient confusional state and possible delirium. In addition has chronic back pain and deconditioning from underlying kyphoplasty of L1. She has multilevel degenerative spondylosis in the lumbosacral area, which can also cause sever low back pain radiating down to the legs causing lumbosacral neuritis. At this time; 1. Former therapy is lumbosacral stretching, exercise, TENS unit. 2. Avoid any opiates or sedative medications. 3. Keep her systolic blood pressure 120s to 140s systolic and diastolic 70s and 80s and avoid hypotensive events. 4. Tramadol p.r.n. every 6 hours rather than every 4 hours and Lidoderm patch to the lumbosacral area. Avoid any opiates. 5. Continue with her current present medical management. Thank you for this consult. Qasim Billingsley MD
--- NOTE | 2018-07-14 23:07 | HP ---
DATE OF EXAM: 07/14/2018 HISTORY OF PRESENT ILLNESS: The patient is seen and examined. I do agree with the note of the emergency medical technician/driver. I was involved in the plan of care. The patient had a lumbar CT, it shows kyphoplasty seen yet again with a partially collapsed L1 vertebral body. There is mild retropulsion of the posterior superior corner of the L1 segment slightly larger than the right. There is no acute fracture. There is multiple areas of DJD. There is diverticulosis without evidence of diverticulitis. The patient is having a difficult time in ambulating. She was at [facility] and has left [place] after one day of stay. The patient has had three lumbar CAT scans to evaluate her back. She is going to need further physical therapy. She most likely will need subacute rehab, family is requesting transitional care unit. I do not feel that the transitional care unit will be enough time for the patient to improve. The patient is on Lipitor for dyslipidemia. She is on aspirin daily. She is receiving Ultram for pain. She is on Synthroid. I initially had given her Percocet 5 mg, but at the request of the daughter, she was increased to 10 mg. The patient may have had confusion because of this or may have developed delirium. We will get evaluation by Neurology. Delirium has improved. The patient does have lower extremity edema, but it is mild and significantly improved from previous admissions. She has CHF secondary to diastolic dysfunction that is chronic and stable. She is on Synthroid for her hypothyroidism. Gregory Estrada MD
[2018-07-15] MEDS: Levothyroxine 100 MCG TAB PO SCH (05:35)
[2018-07-15] MEDS: Cholecalciferol 1,000 INTLU TAB PO SCH (09:17)
--- NOTE | 2018-07-15 09:20 | CP.PCM.PN ---
<Milton Marquis - Last Filed: 07/15/18 09:17> Subjective - Date & Time of Evaluation Date of Evaluation: 07/15/18 Time of Evaluation: 07:10 - Subjective Subjective: Patient seen and examined at bedside. Patient remains confused, but follows commands appropriately. Admits to back and b/l leg pain. Denies chest pain, shortness of breath, nausea, vomiting, fever, chills. Objective - Vital Signs/Intake and Output Vital Signs (last 24 hours): Temp Pulse Resp BP Pulse Ox 98.4 F 72 18 163/68 H 96 07/15/18 06:00 07/15/18 06:00 07/15/18 06:00 07/15/18 06:00 07/15/18 06:00 Intake and Output: 07/15/18 07/15/18 06:59 18:59 Intake Total 120 Output Total 700 Balance -580 - Medications Medications: Current Medications Albuterol/Ipratropium (Duoneb 3 Mg/0.5 Mg (3 Ml) Ud) 3 ml IH Q6H PRN PRN Reason: Shortness of Breath Last Admin: 07/13/18 18:27 Dose: 3 ml Aspirin (Ecotrin) 81 mg PO DAILY [facility] Last Admin: 07/14/18 10:50 Dose: 81 mg Atorvastatin Calcium (Lipitor) 10 mg PO DIN [facility] Last Admin: 07/14/18 18:40 Dose: 10 mg Cholecalciferol (Vitamin D) 1,000 intlu PO DAILY [facility] Last Admin: 07/14/18 10:51 Dose: 1,000 intlu Famotidine (Pepcid) 20 mg PO HS [facility] Last Admin: 07/15/18 04:53 Dose: 20 mg Furosemide (Lasix) 40 mg PO BID [facility] Last Admin: 07/14/18 18:50 Dose: 40 mg Levothyroxine Sodium (Synthroid) 100 mcg PO 0600 [facility] Last Admin: 07/15/18 05:35 Dose: 100 mcg Metoprolol Tartrate (Lopressor) 25 mg PO DAILY [facility] Last Admin: 07/14/18 10:50 Dose: 25 mg Spironolactone (Aldactone) 50 mg PO DAILY [facility] Last Admin: 07/14/18 10:50 Dose: 50 mg Tramadol HCl (Ultram) 50 mg PO Q6H PRN PRN Reason: Pain, moderate (4-7) - Labs Labs: 07/13/18 11:45 07/13/18 11:45 PT 13.4 SECONDS (9.4-12.5) H 07/13/18 11:45 INR 1.19 07/13/18 11:45 APTT 40.8 Seconds (26.9-38.3) H 07/13/18 11:45 - Constitutional Appears: Non-toxic, No Acute Distress - Head Exam Head Exam: ATRAUMATIC, NORMAL INSPECTION, NORMOCEPHALIC - ENT Exam ENT Exam: Mucous Membranes Moist - Respiratory Exam Respiratory Exam: Decreased Breath Sounds, NORMAL BREATHING PATTERN - Cardiovascular Exam Cardiovascular Exam: RRR, +S1, +S2, Murmur (Systolic) - GI/Abdominal Exam GI & Abdominal Exam: Soft, Normal Bowel Sounds. absent: Tenderness - Extremities Exam Extremities Exam: Tenderness (b/l legs) - Neurological Exam Neurological Exam: Alert, Awake. absent: Oriented x3 (Oriented x1) - Psychiatric Exam Psychiatric exam: Normal Affect, Normal Mood - Skin Skin Exam: Intact, Normal Color, Warm Assessment and Plan - Assessment and Plan (Free Text) Plan: 1. Altered mental status, possible delirium 2. B/l lower extremity pain 3. Chronic respiratory failure 4. COPD on home O2 5. Diastolic CHF 6. Pacemaker 7. Hypothyroidism 8. HLD Patient remains altered at this time. Urine cultures pending at this time. Neurology evaluated patient and recommends changing frequency of tramadol to q6h and avoid opioids. Patient should also maintain SBP in the 120-130 range. Psychiatry has also been called to evaluate patient. Patient will be medically managed for partially collapsed L1 vertebrae. Patient will continue on O2 and duonebs as needed for COPD. Patient will continue on ASA, lipitor, Aldactone, Lopressor, and Lasix for CHF. Patient will continue on Levothyroxine for hypothyroidism and Tramadol for pain. Patient will be seen by physical therapy. Patient will need rehabilitation upon discharge, which may improve overall mental status. Benitez, PGY-3 <Gregory Estrada - Last Filed: 07/15/18 18:25> Objective - Vital Signs/Intake and Output Vital Signs (last 24 hours): Temp Pulse Resp BP Pulse Ox 98.4 F 72 18 109/71 96 07/15/18 06:00 07/15/18 09:17 07/15/18 06:00 07/15/18 17:06 07/15/18 06:00 Intake and Output: 07/15/18 07/15/18 06:59 18:59 Intake Total 120 Output Total 700 Balance -580 - Medications Medications: Current Medications Albuterol/Ipratropium (Duoneb 3 Mg/0.5 Mg (3 Ml) Ud) 3 ml IH Q6H PRN PRN Reason: Shortness of Breath Last Admin: 07/13/18 18:27 Dose: 3 ml Aspirin (Ecotrin) 81 mg PO DAILY [facility] Last Admin: 07/15/18 09:17 Dose: 81 mg Atorvastatin Calcium (Lipitor) 10 mg PO DIN [facility] Last Admin: 07/15/18 17:06 Dose: 10 mg Cholecalciferol (Vitamin D) 1,000 intlu PO DAILY [facility] Last Admin: 07/15/18 09:17 Dose: 1,000 intlu Famotidine (Pepcid) 20 mg PO HS [facility] Last Admin: 07/15/18 04:53 Dose: 20 mg Furosemide (Lasix) 40 mg PO BID [facility] Last Admin: 07/15/18 17:06 Dose: 40 mg Levothyroxine Sodium (Synthroid) 100 mcg PO 0600 [facility] Last Admin: 07/15/18 05:35 Dose: 100 mcg Metoprolol Tartrate (Lopressor) 25 mg PO DAILY [facility] Last Admin: 07/15/18 09:17 Dose: 25 mg Quetiapine Fumarate (Seroquel) 12.5 mg PO HS PRN; Protocol PRN Reason: confusion/agitation/psychosis Spironolactone (Aldactone) 50 mg PO DAILY [facility] Last Admin: 07/15/18 09:17 Dose: 50 mg Tramadol HCl (Ultram) 50 mg PO Q6H PRN PRN Reason: Pain, moderate (4-7) - Labs Labs: 07/13/18 11:45 07/13/18 11:45 PT 13.4 SECONDS (9.4-12.5) H 07/13/18 11:45 INR 1.19 07/13/18 11:45 APTT 40.8 Seconds (26.9-38.3) H 07/13/18 11:45 Assessment and Plan - Assessment and Plan (Free Text) Plan: Pt seen and examined by me. I have reviewed the note of the medical records custodian and I agree with it. I have discussed the assessment and plan with the resident. I have reviewed the medications and the last labs.
--- NOTE | 2018-07-15 12:09 | CP.PCM.PCO ---
Physician Communication Note - Physician Communication Note Physician Communication Note: Awaiting Psych recommendation.
--- NOTE | 2018-07-15 18:25 | CON ---
DATE OF CONSULTATION: 07/15/2018 HISTORY OF PRESENT ILLNESS: In short, the patient is a 78-year-old female with multiple medical issues including coronary artery disease, pacemaker, COPD, home oxygen dependent, diastolic congestive heart failure, hypothyroidism, and pancreatitis. The patient also has history of depression and anxiety. The patient was admitted on the medical side for evaluation of altered mental status. Recently, the patient was discharged from [facility] against medical advice. The patient's family brought the patient for evaluation of worsening mental status and inability to perform daily activities. Psych consult was called because the patient has a history of depression and anxiety. The patient was seen and examined today. The patient presented very confused, and this lyric writer is very familiar with this patient from the previous consultation services, which took place here in [place] a couple of months ago. Current presentation is a deviation from the patient's baseline, when usually the patient would be alert, oriented, would express her needs, but to compare with today, the patient was very confused. The patient does not remember this lyric writer, but the patient is aware that she is in the hospital. The patient was not able to participate in interview in meaningful way because of shortness of breath and difficulty to stay focus and concentration. PHYSICAL EXAMINATION: VITAL SIGNS: Reviewed. Temperature 98.4, pulse 72, blood pressure 163/68, respirations 18, oxygen saturation is 96. MEDICATIONS: Reviewed. The patient is on DuoNeb, aspirin, Lipitor, vitamin D, Pepcid, Lasix, Synthroid, Lopressor, Aldactone, and Ultram. LABORATORY DATA: Labs reviewed. Coagulation reviewed. Blood gas reviewed. Chemistries reviewed. Urinalysis reviewed. Leukocyte esterase, trace. Urinalysis showed gram-positive cocci, most likely the patient has urinary tract infection, which could contribute to the patient's mental status. MENTAL STATUS EXAMINATION: The patient presented to be confused, but she knows that she is in the hospital. The patient does not remember this lyric writer. The patient obviously had difficulty to stay focus and pay attention. Mood described as not good. Affect was constricted. Thought process disorganized. Thought content, the patient denied visual, auditory, or tactile hallucinations, but this lyric writer is not sure if she understand the questions this lyric writer asked. Insight and judgment seemed to be limited. Impulses are unpredictable. IMPRESSION: Considering the fact that a couple of months ago, the patient was alert and oriented, was able to participate in an interview. At present moment, the patient is not at her baseline, which could be related to urinary tract infection and delirium due to general medical condition. PLAN: Continue medication, current management. This lyric writer will start small dose of antipsychotic medication at the nighttime only as needed for agitation and for restlessness. This lyric writer will follow up and advise accordingly. Thank you very much for letting me participate in the care of your patient. Cordelia Gates MD
--- NOTE | 2018-07-15 22:21 | PN ---
DATE: 07/15/2018 SUBJECTIVE: The patient was seen and examined. I agree with the note of the medical supply technician. I was involved in plan of care. The patient has been having chronic back pain. She had a CAT scan that showed no significant abnormalities. The patient was seen by Neurology. Neurology has recommended physical therapy and pain management. The patient is currently comfortable. The patient's family wishes to take her home and not to subacute rehab facility. The patient also have Psychiatry to follow. Gregory Estrada MD
[2018-07-16] MEDS: Levothyroxine 100 MCG TAB PO SCH (05:12)
[2018-07-16] MEDS: Cholecalciferol 1,000 INTLU TAB PO SCH (10:11)
--- NOTE | 2018-07-16 10:22 | CP.PCM.CON ---
History of Present Illness - History of Present Illness History of Present Illness: Palliative care consult as per Dr. Estrada Reason for consult: goals of care This 78yo female with past medical history of COPD on home O2, pacemaker, CHF, HLD, CAD, hypothyroidism, anxiety/depression who was brought to the ED as per family for confusion, weakness and back pain since her discharge from [facility] on 07/01/18. The patient was sent to [facility] after last discharge and the daughter reports she had to take her mom home after 1 day because she was getting confused and reporting that the staff was "trying to bury her". She had a recent kyphoplasty of L1 at last admission but was unable to complete subacute rehab. Patient denies chest pain, shortness of breath, nausea/vomiting/diarrhea, fever/chills, numbness/tingling, dysuria or hematuria, incontinence, or urinary retention. The back pain radiates down to her legs and is constant. Head CT: No acute findings Lumbar spine CT: partially collapsed L1 s/p kyphoplasty CXR: No active disease Vitals were within normal limits. Labs did not show acute abnormalities. U/A did show trace leuk esterase and Urine culture prelim positive for G+ cocci. Past medical history: COPD on home O2, pacemaker, CHF, HLD, CAD, hypothyroidism, anxiety/depression Past surgical history: Pacemaker, vertebroplasty L1, R knee surgery Home meds: Reviewed as per MAR Allergies: Levofloxacin, ceftriaxone. Social history: Former heavy smoker (60-pack yr and quit 2yrs ago). Denies EtOH and drug use. Lives with daughter who takes care of her. Family history: Heart disease in Mom and Dad. Advanced Directive: Does not have one at this time. Daughter is not formally power of county attorney. Review of systems: 12 point ROS reviewed as per HPI and is otherwise negative. Review of Systems - Review of Systems All systems: reviewed and no additional remarkable complaints except Review of Systems: 12 point ROS reviewed as per HPI and is otherwise negative Past Patient History - Infectious Disease Hx of Infectious Diseases: None - Tetanus Immunizations Tetanus Immunization: Unknown - Past Medical History & Family History Past Medical History?: Yes - Past Social History Smoking Status: Former Smoker - CARDIAC Hx Cardiac Disorders: Yes Hx Congestive Heart Failure: Yes - PULMONARY Hx Chronic Obstructive Pulmonary Disease (COPD): Yes - NEUROLOGICAL Hx Neurological Disorder: Yes Hx Dizziness: Yes Hx Migraine: Yes - HEENT Hx HEENT Problems: Yes ([place]) Hx Cataracts: Yes (PAST SX) Hx Deafness: Yes - RENAL Hx Chronic Kidney Disease: No - ENDOCRINE/METABOLIC Hx Endocrine Disorders: Yes Hx Hypothyroidism: Yes - HEMATOLOGICAL/ONCOLOGICAL Hx Blood Disorders: No - INTEGUMENTARY Hx Dermatological Problems: Yes Other/Comment: Hx of bilateral LE cellulitis - MUSCULOSKELETAL/RHEUMATOLOGICAL Hx Musculoskeletal Disorders: Yes Hx Back Pain: Yes Hx Falls: Yes Hx Fractures: Yes (compression fx L1 w/ kyphoplasty 05/11/18) Hx Unsteady Gait: Yes - GASTROINTESTINAL Hx Gastrointestinal Disorders: Yes (COLON POLYPS,CONSTIPAT ION,GERD,DEIVERTICULITIS,) Other/Comment: constipation - GENITOURINARY/GYNECOLOGICAL Hx Genitourinary Disorders: Yes Hx Incontinence: Yes - PSYCHIATRIC Hx Psychophysiologic Disorder: No Hx Substance Use: No - SURGICAL HISTORY Hx Surgeries: Yes Hx Orthopedic Surgery: Yes (r knee) Other/Comment: carpal tunnel right hand, colonoscopies, left neck tumor, pacem marisa 1999, generator change 2007, cardiac ablation, b/l cataract sx, t&a, kyphoplasty to L1 2019 - ANESTHESIA Hx Anesthesia Reactions: No Hx Malignant Hyperthermia: No Meds Allergies/Adverse Reactions: Allergies Allergy/AdvReac Type Severity Reaction Status Date / Time levofloxacin [From Levaquin] Allergy Severe ANAPHYLAXIS Verified 07/13/18 20:14 ceftriaxone [From Rocephin] Allergy RASH Verified 07/13/18 20:14 - Medications Medications: Current Medications Albuterol/Ipratropium (Duoneb 3 Mg/0.5 Mg (3 Ml) Ud) 3 ml IH Q6H PRN PRN Reason: Shortness of Breath Last Admin: 07/13/18 18:27 Dose: 3 ml Aspirin (Ecotrin) 81 mg PO DAILY [facility] Last Admin: 07/16/18 10:11 Dose: 81 mg Atorvastatin Calcium (Lipitor) 10 mg PO DIN [facility] Last Admin: 07/15/18 17:06 Dose: 10 mg Cholecalciferol (Vitamin D) 1,000 intlu PO DAILY [facility] Last Admin: 07/16/18 10:11 Dose: 1,000 intlu Famotidine (Pepcid) 20 mg PO HS [facility] Last Admin: 07/15/18 21:56 Dose: 20 mg Furosemide (Lasix) 40 mg PO BID [facility] Last Admin: 07/16/18 10:11 Dose: 40 mg Levothyroxine Sodium (Synthroid) 100 mcg PO 0600 [facility] Last Admin: 07/16/18 05:12 Dose: Not Given Metoprolol Tartrate (Lopressor) 25 mg PO DAILY [facility] Last Admin: 07/16/18 10:11 Dose: 25 mg Quetiapine Fumarate (Seroquel) 12.5 mg PO HS PRN; Protocol PRN Reason: confusion/agitation/psychosis Spironolactone (Aldactone) 50 mg PO DAILY [facility] Last Admin: 07/16/18 10:11 Dose: 50 mg Tramadol HCl (Ultram) 50 mg PO Q6H PRN PRN Reason: Pain, moderate (4-7) Last Admin: 07/16/18 08:52 Dose: 50 mg Physical Exam - Constitutional Appears: No Acute Distress, Chronically Ill - Head Exam Head Exam: ATRAUMATIC, NORMAL INSPECTION, NORMOCEPHALIC - Eye Exam Eye Exam: Normal appearance, PERRL Pupil Exam: NORMAL ACCOMODATION, PERRL - ENT Exam ENT Exam: Mucous Membranes Moist - Neck Exam Neck exam: Positive for: Normal Inspection - Respiratory Exam Respiratory Exam: Decreased Breath Sounds, NORMAL BREATHING PATTERN. absent: Rales, Rhonchi - Cardiovascular Exam Cardiovascular Exam: REGULAR RHYTHM, +S1, +S2. absent: Gallop, Rubs, Systolic Murmur - GI/Abdominal Exam GI & Abdominal Exam: Normal Bowel Sounds, Soft. absent: Mass, Rebound, Rigid, Tenderness - Extremities Exam Extremities exam: Positive for: normal inspection. Negative for: calf tenderness, pedal edema - Neurological Exam Neurological exam: CN II-XII Intact - Psychiatric Exam Psychiatric exam: Normal Affect, Normal Mood - Skin Skin Exam: Dry, Warm - Additional Findings Additional findings: Palliative performance scale rating 50% Results - Vital Signs Recent Vital Signs: Last Vital Signs Temp 97.6 F 07/16/18 06:00 Pulse 94 H 07/16/18 06:00 Resp 18 07/16/18 06:00 BP 118/68 07/16/18 10:11 Pulse Ox 98 07/16/18 06:00 - Labs Result Diagrams: 07/13/18 11:45 07/13/18 11:45 Assessment & Plan - Assessment and Plan (Free Text) Assessment: This 78 year old female with past medical history of COPD on home O2, pacemaker, CHF, HLD, CAD, hypothyroidism, anxiety/depression who was admitted for delirium possibly secondary to UTI, and back pain s/p kyphoplasty. Saw patient at the bedside who was sitting the chair. She was awake, alert but did complain of back pain. Advance care planning discussion initiated. Patient states she does not have a living will but would like her daughter Tristian to be her medical power of county attorney. Patient states she has discussed resuscitation status several times with her daughter. She verbalized understating of CPR and intubation and states she wants to be DNR/DNI. Tristian, patient's daughter and primary cna caregiver met with me today . She reports she is not officially medical power of county attorney but would like to initiate the paper work within the next couple of days. Tristian also confirmed that she is aware and in agreement of her mother's wish to be DNR/DNI . Psychosocial support given. Time spent with family and patient is 35 minutes. Plan: Goals of care Advanced care planning,DNR/DNI order in place. Continue pain control with tramadol as per neurology. Continue re-orientation for delirium. Psych recommendation reviewed. Urine culture reviewed, but less than 10,000 species. Continue to monitor clinically off of antibiotics Continue to monitor mental status.
--- NOTE | 2018-07-16 13:56 | CP.PCM.PN ---
<Milton Marquis - Last Filed: 07/16/18 13:53> Subjective - Date & Time of Evaluation Date of Evaluation: 07/16/18 Time of Evaluation: 07:30 - Subjective Subjective: Patient seen and examined at beside. Patient remains confused. Patient agitated overnight. ROS unobtainable secondary to mental status. Objective - Vital Signs/Intake and Output Vital Signs (last 24 hours): Temp Pulse Resp BP Pulse Ox 97.6 F 94 H 18 118/68 98 07/16/18 06:00 07/16/18 06:00 07/16/18 06:00 07/16/18 10:11 07/16/18 06:00 Intake and Output: 07/16/18 07/16/18 06:59 18:59 Intake Total 180 Output Total 600 Balance -420 - Medications Medications: Current Medications Albuterol/Ipratropium (Duoneb 3 Mg/0.5 Mg (3 Ml) Ud) 3 ml IH Q6H PRN PRN Reason: Shortness of Breath Last Admin: 07/13/18 18:27 Dose: 3 ml Aspirin (Ecotrin) 81 mg PO DAILY [facility] Last Admin: 07/16/18 10:11 Dose: 81 mg Atorvastatin Calcium (Lipitor) 10 mg PO DIN [facility] Last Admin: 07/15/18 17:06 Dose: 10 mg Cholecalciferol (Vitamin D) 1,000 intlu PO DAILY [facility] Last Admin: 07/16/18 10:11 Dose: 1,000 intlu Famotidine (Pepcid) 20 mg PO HS [facility] Last Admin: 07/15/18 21:56 Dose: 20 mg Furosemide (Lasix) 40 mg PO BID [facility] Last Admin: 07/16/18 10:11 Dose: 40 mg Levothyroxine Sodium (Synthroid) 100 mcg PO 0600 [facility] Last Admin: 07/16/18 05:12 Dose: Not Given Metoprolol Tartrate (Lopressor) 25 mg PO DAILY [facility] Last Admin: 07/16/18 10:11 Dose: 25 mg Quetiapine Fumarate (Seroquel) 12.5 mg PO HS PRN; Protocol PRN Reason: confusion/agitation/psychosis Spironolactone (Aldactone) 50 mg PO DAILY [facility] Last Admin: 07/16/18 10:11 Dose: 50 mg Tramadol HCl (Ultram) 50 mg PO Q6H PRN PRN Reason: Pain, moderate (4-7) Last Admin: 07/16/18 08:52 Dose: 50 mg - Labs Labs: 07/13/18 11:45 07/13/18 11:45 PT 13.4 SECONDS (9.4-12.5) H 07/13/18 11:45 INR 1.19 07/13/18 11:45 APTT 40.8 Seconds (26.9-38.3) H 07/13/18 11:45 - Constitutional Appears: Non-toxic, No Acute Distress, Confused - Head Exam Head Exam: ATRAUMATIC, NORMAL INSPECTION, NORMOCEPHALIC - ENT Exam ENT Exam: Mucous Membranes Moist - Respiratory Exam Respiratory Exam: Clear to Ausculation Bilateral, NORMAL BREATHING PATTERN - Cardiovascular Exam Cardiovascular Exam: RRR, +S1, +S2 - GI/Abdominal Exam GI & Abdominal Exam: Soft, Tenderness (Diffuse), Normal Bowel Sounds - Extremities Exam Extremities Exam: Tenderness. absent: Pedal Edema - Neurological Exam Neurological Exam: Alert, Awake. absent: Oriented x3 (Oriented x 1) - Psychiatric Exam Psychiatric exam: Normal Affect, Normal Mood - Skin Skin Exam: Intact, Normal Color, Warm Assessment and Plan - Assessment and Plan (Free Text) Plan: 1. Altered mental status, possible delirium 2. B/l lower extremity pain 3. Chronic respiratory failure 4. COPD on home O2 5. Diastolic CHF 6. Pacemaker 7. Hypothyroidism 8. HLD Patient is still confused at this time. Urine cultures demonstrate gram positive cocci, but less than 10,000 species. Patient evaluated by psychiatry who recommend patient be placed on Seroquel at night. Patient evaluated by physical therapy who recommend [facility]. As per daughter's request, she would like patient to go to TCU for rehab, otherwise she will take her home. It was recommended that patient go to [facility] and not home if patient is denied from TCU. Patient will continue on O2 and duonebs as needed for COPD. Patient will continue on ASA, lipitor, Aldactone, Lopressor, and Lasix for CHF. Patient will continue on Levothyroxine for hypothyroidism and Tramadol for pain. Benitez, PGY-3 <Gregory Estrada - Last Filed: 07/17/18 12:37> Objective - Vital Signs/Intake and Output Vital Signs (last 24 hours): Temp Pulse Resp BP Pulse Ox 97.4 F L 86 18 120/78 98 07/17/18 06:00 07/17/18 06:00 07/17/18 06:00 07/17/18 10:09 07/17/18 06:00 Intake and Output: 07/17/18 07/17/18 06:59 18:59 Intake Total 180 Output Total 660 Balance -480 - Medications Medications: Current Medications Albuterol/Ipratropium (Duoneb 3 Mg/0.5 Mg (3 Ml) Ud) 3 ml IH Q6H PRN PRN Reason: Shortness of Breath Last Admin: 07/13/18 18:27 Dose: 3 ml Aspirin (Ecotrin) 81 mg PO DAILY [facility] Last Admin: 07/17/18 10:09 Dose: 81 mg Atorvastatin Calcium (Lipitor) 10 mg PO DIN [facility] Last Admin: 07/16/18 17:08 Dose: 10 mg Cholecalciferol (Vitamin D) 1,000 intlu PO DAILY [facility] Last Admin: 07/17/18 10:09 Dose: 1,000 intlu Famotidine (Pepcid) 20 mg PO HS [facility] Last Admin: 07/16/18 21:40 Dose: 20 mg Furosemide (Lasix) 40 mg PO BID [facility] Last Admin: 07/17/18 10:09 Dose: 40 mg Levothyroxine Sodium (Synthroid) 100 mcg PO 0600 [facility] Last Admin: 07/17/18 05:29 Dose: 100 mcg Metoprolol Tartrate (Lopressor) 25 mg PO DAILY [facility] Last Admin: 07/17/18 10:09 Dose: 25 mg Quetiapine Fumarate (Seroquel) 12.5 mg PO HS [facility]; Protocol Spironolactone (Aldactone) 50 mg PO DAILY [facility] Last Admin: 07/17/18 10:09 Dose: 50 mg Tramadol HCl (Ultram) 50 mg PO Q6H PRN PRN Reason: Pain, moderate (4-7) Last Admin: 07/17/18 10:09 Dose: 50 mg - Labs Labs: 07/17/18 07:20 07/17/18 07:20 PT 13.4 SECONDS (9.4-12.5) H 07/13/18 11:45 INR 1.19 07/13/18 11:45 APTT 40.8 Seconds (26.9-38.3) H 07/13/18 11:45 Assessment and Plan - Assessment and Plan (Free Text) Plan: Pt seen and examined by me. I have reviewed the note of the medical practice administrator and I agree with it. I have discussed the assessment and plan with the resident. I have reviewed the medications and the last labs.
--- NOTE | 2018-07-16 14:25 | CT ---
Date of service: 07/16/2018 PROCEDURE: CT Abdomen and Pelvis without intravenous contrast HISTORY: abdominal pain COMPARISON: None. TECHNIQUE: Without contrast.. Contrast dose: Radiation dose: Total exam DLP = 789.18 mGy-cm. This CT exam was performed using one or more of the following dose reduction techniques: Automated exposure control, adjustment of the mA and/or kV according to patient size, and/or use of iterative reconstruction technique. FINDINGS: LOWER THORAX: Unremarkable. LIVER: Unremarkable. No gross lesion or ductal dilatation. GALLBLADDER AND BILE DUCTS: Gallbladder removed PANCREAS: Unremarkable. No gross lesion or ductal dilatation. SPLEEN: Unremarkable. ADRENALS: Unremarkable. No mass. KIDNEYS AND URETERS: Unremarkable. No hydronephrosis. No solid mass. VASCULATURE: Unremarkable. No aortic aneurysm. Aortic calcification BOWEL: Unremarkable. No obstruction. No gross mural thickening. Diverticulosis of the descending and sigmoid colon without diverticulitis APPENDIX: Unremarkable. Normal appendix. PERITONEUM: Unremarkable. No free fluid. No free air. 4 x 6 cm fat containing umbilical hernia. LYMPH NODES: Unremarkable. No enlarged lymph nodes. BLADDER: Unremarkable. REPRODUCTIVE: Unremarkable. BONES: Vertebroplasty at L1 OTHER FINDINGS: None. IMPRESSION: No acute intra-abdominal findings
--- NOTE | 2018-07-16 15:11 | PN ---
DATE: 07/16/2018 SUBJECTIVE: The patient was seen and examined. I do agree with the note of the biomedical engineering professor. I was involved in the plan of care. I appreciate the note from Palliative Care, Adilia. The note was reviewed by me. The patient's daughter will sign a POLST. She is going to be DNR/DNI. The patient is off antibiotics. Urine cultures do not show any significant growth. The patient does have chronic back pain. She is going to continue on Lipitor for dyslipidemia. She is on her Seroquel that was placed by Psychiatry. I appreciate their input. She is on Synthroid for her hypothyroidism. She is on tramadol for pain. The patient has an abdominal CT that has been ordered. She was complaining of abdominal pain. We will repeat the patient's blood work tomorrow. Gregory Estrada MD
--- NOTE | 2018-07-16 19:37 | PN ---
DATE: 07/16/2018 SUBJECTIVE: As per report from the nursing staff, the patient was agitated overnight. The patient pull IV line overnight. The patient was yelling and screaming, was calling for police. The patient obviously was in delirium stage. The patient was seen today. The patient presented to be confused, was not able to hold conversation. The patient had difficulty to focus and stay and concentrate. Based on report, the patient did not get Seroquel, what this va underwriter recommended in case of agitation for unknown reason. OBJECTIVE: VITAL SIGNS: Reviewed. Pulse is 94, temperature is 97.6, blood pressure is 118/68, respirations are 18, and oxygen saturation is 98. MENTAL STATUS EXAMINATION: The patient presented to be confused, was not able to stay focus and concentrate. The patient was not able to answer if she feels depressed or not. The patient just answered "I'm okay." Affect was labile. Thought process disorganized. Thought content, the patient has episodes of agitation, most likely the patient is in delirium stage. Insight and judgment seems to be limited. Impulses are unpredictable. MEDICATIONS: Reviewed. LABORATORY DATA: Reviewed. IMPRESSION AND PLAN: Most likely, the patient is in delirium stage. The patient has agitation for what this va underwriter prescribed Seroquel at the nighttime as needed. Discussed with . Thank you very much for letting me to participate in the care of your patient. Should you have any questions, give me a call back. Cordelia Gates MD [facility]
[2018-07-17] MEDS: Levothyroxine 100 MCG TAB PO SCH (05:29)
[2018-07-17 07:36] LABS: MEAN CELL VOLUME 91.8 fl (80.0-105.0); MEAN CORPUSCULAR HEMOGLOBIN 30.4 pg (25.0-35.0); MEAN CORPUSCULAR HGB CONC 33.1 g/dl (31.0-37.0); RBC 4.61 10^6/uL (3.5-6.1); RED CELL DISTRIBUTION WIDTH 13.7 % (11.5-14.5); WHITE BLOOD COUNT 10.2 10^3/uL (4.5-11.0)
[2018-07-17 07:45] LABS: ALB/GLOB RATIO 1.2 (1.1-1.8); ALBUMIN 4.1 g/dL (3.0-4.8); CALCIUM 10.7 mg/dL (8.4-10.5)
[2018-07-17] MEDS: Cholecalciferol 1,000 INTLU TAB PO SCH (10:09)
--- NOTE | 2018-07-17 12:16 | CP.PCM.PN ---
Subjective - Date & Time of Evaluation Date of Evaluation: 07/17/18 Time of Evaluation: 10:00 - Subjective Subjective: Palliative Care progress note Patient was agitated and confused overnight as per nursing staff. Objective - Vital Signs/Intake and Output Vital Signs (last 24 hours): Temp Pulse Resp BP Pulse Ox 97.4 F L 86 18 120/78 98 07/17/18 06:00 07/17/18 06:00 07/17/18 06:00 07/17/18 10:09 07/17/18 06:00 Intake and Output: 07/17/18 07/17/18 06:59 18:59 Intake Total 180 Output Total 660 Balance -480 - Medications Medications: Current Medications Albuterol/Ipratropium (Duoneb 3 Mg/0.5 Mg (3 Ml) Ud) 3 ml IH Q6H PRN PRN Reason: Shortness of Breath Last Admin: 07/13/18 18:27 Dose: 3 ml Aspirin (Ecotrin) 81 mg PO DAILY [facility] Last Admin: 07/17/18 10:09 Dose: 81 mg Atorvastatin Calcium (Lipitor) 10 mg PO DIN [facility] Last Admin: 07/16/18 17:08 Dose: 10 mg Cholecalciferol (Vitamin D) 1,000 intlu PO DAILY [facility] Last Admin: 07/17/18 10:09 Dose: 1,000 intlu Famotidine (Pepcid) 20 mg PO HS [facility] Last Admin: 07/16/18 21:40 Dose: 20 mg Furosemide (Lasix) 40 mg PO BID [facility] Last Admin: 07/17/18 10:09 Dose: 40 mg Levothyroxine Sodium (Synthroid) 100 mcg PO 0600 [facility] Last Admin: 07/17/18 05:29 Dose: 100 mcg Metoprolol Tartrate (Lopressor) 25 mg PO DAILY [facility] Last Admin: 07/17/18 10:09 Dose: 25 mg Quetiapine Fumarate (Seroquel) 12.5 mg PO HS [facility]; Protocol Spironolactone (Aldactone) 50 mg PO DAILY [facility] Last Admin: 07/17/18 10:09 Dose: 50 mg Tramadol HCl (Ultram) 50 mg PO Q6H PRN PRN Reason: Pain, moderate (4-7) Last Admin: 07/17/18 10:09 Dose: 50 mg - Labs Labs: 07/17/18 07:20 07/17/18 07:20 PT 13.4 SECONDS (9.4-12.5) H 07/13/18 11:45 INR 1.19 07/13/18 11:45 APTT 40.8 Seconds (26.9-38.3) H 07/13/18 11:45 - Constitutional Appears: No Acute Distress - Head Exam Head Exam: ATRAUMATIC, NORMAL INSPECTION, NORMOCEPHALIC - Eye Exam Eye Exam: Normal appearance, PERRL Pupil Exam: NORMAL ACCOMODATION, PERRL - ENT Exam ENT Exam: Mucous Membranes Moist - Respiratory Exam Respiratory Exam: Decreased Breath Sounds, NORMAL BREATHING PATTERN - Cardiovascular Exam Cardiovascular Exam: REGULAR RHYTHM, +S1, +S2. absent: Gallop, Rubs, Murmur - GI/Abdominal Exam GI & Abdominal Exam: Soft, Normal Bowel Sounds. absent: Rigid, Tenderness, Rebound - Extremities Exam Extremities Exam: absent: Calf Tenderness, Pedal Edema - Neurological Exam Neurological Exam: CN II-XII Intact - Psychiatric Exam Psychiatric exam: Normal Affect, Normal Mood - Skin Skin Exam: Dry, Warm - Additional Findings Additional findings: Palliative performance scale rating 40% Assessment and Plan - Assessment and Plan (Free Text) Assessment: This 78 year old female with past medical history of COPD on home O2, pacemaker, CHF, HLD, CAD, hypothyroidism, anxiety/depression who was admitted for delirium likely due to UTI and back pain s/p kyphoplasty. The patient was able to express that she did not want to be intubetd or have CPR if she experienced cardiopulmonary arrest. Patient states that Tristian is her medical surrogate. I spoke with patient's daughter/studio assistant, Tristian today at bedside. I reviewed the POLST directive with her in detail. All questions were answered. Tristian completed POLST form. Patient is DNR/DNI. . Time spent with family and patient is 35 minutes. Plan: Goals of care POLST DNR/DNI Patient will be discharged to rehab for further PT/OT secondary to deconditioning. Continue pain control with tramadol as per neurology. Psych recommendation reviewed, continue re-orientation for delirium.
--- NOTE | 2018-07-17 13:40 | CP.PCM.PN ---
Subjective - Date & Time of Evaluation Date of Evaluation: 07/17/18 Time of Evaluation: 07:10 - Subjective Subjective: Patient seen and examined. Patient confused. No overnight events. Patient responds to commands appropriately. Denies chest pain, shortness of breath, nausea, vomiting, diarrhea, fever, chills, dysuria. Objective - Vital Signs/Intake and Output Vital Signs (last 24 hours): Temp Pulse Resp BP Pulse Ox 97.4 F L 86 18 120/78 98 07/17/18 06:00 07/17/18 06:00 07/17/18 06:00 07/17/18 10:09 07/17/18 06:00 Intake and Output: 07/17/18 07/17/18 06:59 18:59 Intake Total 180 Output Total 660 Balance -480 - Medications Medications: Current Medications Albuterol/Ipratropium (Duoneb 3 Mg/0.5 Mg (3 Ml) Ud) 3 ml IH Q6H PRN PRN Reason: Shortness of Breath Last Admin: 07/13/18 18:27 Dose: 3 ml Aspirin (Ecotrin) 81 mg PO DAILY [facility] Last Admin: 07/17/18 10:09 Dose: 81 mg Atorvastatin Calcium (Lipitor) 10 mg PO DIN [facility] Last Admin: 07/16/18 17:08 Dose: 10 mg Cholecalciferol (Vitamin D) 1,000 intlu PO DAILY [facility] Last Admin: 07/17/18 10:09 Dose: 1,000 intlu Famotidine (Pepcid) 20 mg PO HS [facility] Last Admin: 07/16/18 21:40 Dose: 20 mg Furosemide (Lasix) 40 mg PO BID [facility] Last Admin: 07/17/18 10:09 Dose: 40 mg Levothyroxine Sodium (Synthroid) 100 mcg PO 0600 [facility] Last Admin: 07/17/18 05:29 Dose: 100 mcg Metoprolol Tartrate (Lopressor) 25 mg PO DAILY [facility] Last Admin: 07/17/18 10:09 Dose: 25 mg Quetiapine Fumarate (Seroquel) 12.5 mg PO HS [facility]; Protocol Spironolactone (Aldactone) 50 mg PO DAILY [facility] Last Admin: 07/17/18 10:09 Dose: 50 mg Tramadol HCl (Ultram) 50 mg PO Q6H PRN PRN Reason: Pain, moderate (4-7) Last Admin: 07/17/18 10:09 Dose: 50 mg - Labs Labs: 07/17/18 07:20 07/17/18 07:20 PT 13.4 SECONDS (9.4-12.5) H 07/13/18 11:45 INR 1.19 07/13/18 11:45 APTT 40.8 Seconds (26.9-38.3) H 07/13/18 11:45
--- NOTE | 2018-07-17 13:44 | CP.PCM.DIS ---
<Milton Marquis - Last Filed: 07/17/18 13:45> Provider - Provider Date of Admission: 07/15/18 14:23 Attending physician: Gregory Estrada MD Consults: 07/13/18 19:11 Nursing Referral for Wound Care Routine Comment: Physician Instructions: Reason For Exam: Stage 2 to sacrum 07/13/18 23:02 Case Management Referral Routine Comment: NEEDS ASSISTANCE AT HOME Physician Instructions: Reason For Exam: EVALUATION Reason for Referral: Chemical Laboratory Technician Eval Inpatient STRATEGIC ACCOUNT EXECUTIVE Core Measures Referral Routine Comment: Physician Instructions: Reason For Exam: EVALUATION Nursing Referral for Wound Care Routine Comment: SACRAL WOUNDS Physician Instructions: Reason For Exam: EVALUATION Transition In Care/Readmission Reduction Routine Comment: Physician Instructions: Reason For Exam: EVALUATION 07/13/18 23:07 Nursing Referral for Palliative Care Routine Comment: Physician Instructions: Reason For Exam: EVALUATION Social Work Referral Routine Comment: NEEDS ASSISTANCE AT HOME Physician Instructions: Reason For Exam: EVALUATION 07/14/18 09:44 Physician Consult Routine Comment: Consulting Provider: Valentin Mai Consulting Physician: Valentin Mai Reason for Consult: Recent L1 kyphoplasty, now partially collapsed 07/14/18 10:14 Consult [Physician Consult] Routine Comment: Consulting Provider: Qasim Billingsley Consulting Physician: Qasim Billingsley Reason for Consult: back/leg pain 07/14/18 12:17 Consult [Physician Consult] Routine Comment: Consulting Provider: Cordelia Gates Consulting Physician: Cordelia Gates Reason for Consult: ams, hx depression 07/15/18 21:29 Nursing Referral for Wound Care Routine Comment: Physician Instructions: Reason For Exam: met criteria 07/16/18 06:57 Palliative Care Consult Routine Comment: Consulting Provider: Adilia Haynes Physician Instructions: Reason For Exam: Advance directive 07/16/18 11:05 Nursing Referral for Wound Care Routine Comment: Physician Instructions: Reason For Exam: SACRAL REDNESS 07/16/18 11:42 TCU [Evaluation for TRCU] Routine Comment: Physician Instructions: Reason For Exam: rehab, per fam request Time Spent in preparation of Discharge (in minutes): 45 Diagnosis - Discharge Diagnosis (1) Altered mental status Status: Acute (2) Back pain Status: Chronic (3) Muscular deconditioning Status: Chronic (4) Generalized weakness Status: Chronic (5) HLD (hyperlipidemia) Status: Chronic (6) History of hypertension Status: Chronic Priority: Medium (7) Hypothyroid Status: Chronic Hospital Course - Lab Results Lab Results: Micro Results 07/13/18 13:24 Urine Random Urine Culture - Final Gram Positive Cocci Most Recent Lab Values WBC 10.2 10^3/uL (4.5-11.0) 07/17/18 07:20 RBC 4.61 10^6/uL (3.5-6.1) 07/17/18 07:20 Hgb 14.0 g/dL (12.0-16.0) 07/17/18 07:20 Hct 42.3 % (36.0-48.0) 07/17/18 07:20 MCV 91.8 fl (80.0-105.0) 07/17/18 07:20 MCH 30.4 pg (25.0-35.0) 07/17/18 07:20 MCHC 33.1 g/dl (31.0-37.0) 07/17/18 07:20 RDW 13.7 % (11.5-14.5) 07/17/18 07:20 Plt Count 323 10^3/uL (120.0-450.0) 07/17/18 07:20 MPV 10.0 fl (7.0-11.0) 07/17/18 07:20 Neut % (Auto) 71.5 % (50.0-68.0) H 07/13/18 11:45 Lymph % (Auto) 18.6 % (22.0-35.0) L 07/13/18 11:45 Bullock % (Auto) 8.0 % (1.0-6.0) H 07/13/18 11:45 Eos % (Auto) 1.7 % (1.5-5.0) 07/13/18 11:45 Baso % (Auto) 0.2 % (0.0-3.0) 07/13/18 11:45 Lymph # (Auto) 1.9 (1.2-3.4) 07/13/18 11:45 Bullock # (Auto) 0.8 (0.1-0.6) H 07/13/18 11:45 Eos # (Auto) 0.2 (0.0-0.7) 07/13/18 11:45 Baso # (Auto) 0.02 K/mm3 (0.0-2.0) 07/13/18 11:45 Absolute Neuts (auto) 7.32 (1.4-6.5) H 07/13/18 11:45 PT 13.4 SECONDS (9.4-12.5) H 07/13/18 11:45 INR 1.19 07/13/18 11:45 APTT 40.8 Seconds (26.9-38.3) H 07/13/18 11:45 pCO2 36 mm/Hg (35-45) 07/14/18 15:20 pO2 104.0 mm/Hg (80-100) H 07/14/18 15:20 HCO3 23.9 mmol/L (21-28) 07/14/18 15:20 ABG pH 7.43 (7.35-7.45) 07/14/18 15:20 ABG Total CO2 25.0 mmol.L (22-28) 07/14/18 15:20 ABG O2 Saturation 99.7 % (95-98) H 07/14/18 15:20 ABG O2 Content 18.1 ML/dl (15-23) 07/14/18 15:20 ABG Base Excess -0.1 mmol/L (-2.0-3.0) 07/14/18 15:20 ABG Hemoglobin 13.3 g/dL (11.7-17.4) 07/14/18 15:20 ABG Carboxyhemoglobin 2.1 % (0.5-1.5) H 07/14/18 15:20 POC ABG HHb (Measured) 0.3 % (0-5) 07/14/18 15:20 ABG Methemoglobin 1.3 % (0.0-3.0) 07/14/18 15:20 ABG O2 Capacity 18.2 mL/dl (16-24) 07/14/18 15:20 Hgb O2 Saturation 96.3 % (95.0-98.0) 07/14/18 15:20 FiO2 28.0 % 07/14/18 15:20 Sodium 136 mmol/L (132-148) 07/17/18 07:20 Potassium 4.7 mmol/L (3.6-5.0) 07/17/18 07:20 Chloride 97 mmol/L (98-107) L 07/17/18 07:20 Carbon Dioxide 28 mmol/L (21-33) 07/17/18 07:20 Anion Gap 15 (10-20) 07/17/18 07:20 BUN 34 mg/dL (7-21) H 07/17/18 07:20 Creatinine 1.5 mg/dl (0.7-1.2) H 07/17/18 07:20 Est GFR ( Amer) 41 07/17/18 07:20 Est GFR (Non-Af Amer) 34 07/17/18 07:20 Random Glucose 90 mg/dL (70-110) 07/17/18 07:20 Calcium 10.7 mg/dL (8.4-10.5) H 07/17/18 07:20 Phosphorus 3.7 mg/dL (2.5-4.5) 07/13/18 11:45 Magnesium 2.4 mg/dL (1.7-2.2) H 07/13/18 11:45 Total Bilirubin 0.6 mg/dL (0.2-1.3) 07/17/18 07:20 AST 31 U/L (14-36) 07/17/18 07:20 ALT 23 U/L (7-56) 07/17/18 07:20 Alkaline Phosphatase 103 U/L (38-126) 07/17/18 07:20 Total Creatine Kinase 98 U/L (35-230) 07/13/18 11:45 Troponin I < 0.01 ng/mL 07/13/18 11:45 NT-Pro-B Natriuret Pep 362 pg/mL (0-450) 07/13/18 11:45 Total Protein 7.7 g/dL (5.8-8.3) 07/17/18 07:20 Albumin 4.1 g/dL (3.0-4.8) 07/17/18 07:20 Globulin 3.6 gm/dL 07/17/18 07:20 Albumin/Globulin Ratio 1.2 (1.1-1.8) 07/17/18 07:20 Lipase 108 U/L (23-300) 07/13/18 11:45 Urine Color Yellow (YELLOW) 07/13/18 13:24 Urine Appearance Clear (CLEAR) 07/13/18 13:24 Urine pH 6.0 (4.7-8.0) 07/13/18 13:24 Ur Specific [place] 1.025 (1.005-1.035) 07/13/18 13:24 Urine Protein Negative mg/dL (<30 mg/dL) 07/13/18 13:24 Urine Glucose (UA) Negative mg/dL (NEGATIVE) 07/13/18 13:24 Urine Ketones Trace mg/dL (NEGATIVE) H 07/13/18 13:24 Urine Blood Negative (NEGATIVE) 07/13/18 13:24 Urine Nitrate Negative (NEGATIVE) 07/13/18 13:24 Urine Bilirubin Moderate (NEGATIVE) H 07/13/18 13:24 Urine Urobilinogen 0.2 E.U./dL (<1 E.U./dL) 07/13/18 13:24 Ur Leukocyte Esterase Trace Monica/uL (NEGATIVE) H 07/13/18 13:24 Urine RBC None /hpf (0-2) 07/13/18 13:24 Urine WBC 1 - 3 /hpf (0-6) 07/13/18 13:24 Ur Epithelial Cells 4 - 5 /hpf (0-5) 07/13/18 13:24 Urine Bacteria Few /hpf (NONE) 07/13/18 13:24 - Hospital Course Hospital Course: 78 year old female with medical history of CAD, Pacemaker, COPD on home O2, diastolic CHF, hypothyroidism, HLD, pancreatitis, anxiety disorder and depress ion presents to the hospital for worsening altered mental status. Patient was recently admitted for Kyphoplasty and CHF exacerbation. Patient was discharged to [facility] for rehab where she signed out AMA. Patient was found to have delirium. Patient seen by Psychiatry who recommended Seroquel. Patient was seen by PT who recommend patient go to [facility] Patient's family did not want patient to go to [facility]. It was strongly recommended patient go to [facility] and was discussed in length with patient's family, but family still wanted to take her home. Discharge Exam - Head Exam Head Exam: ATRAUMATIC, NORMAL INSPECTION, NORMOCEPHALIC - Respiratory Exam Respiratory Exam: Clear to PA & Lateral, NORMAL BREATHING PATTERN - Cardiovascular Exam Cardiovascular Exam: RRR, +S1, +S2 - GI/Abdominal Exam GI & Abdominal Exam: Normal Bowel Sounds, Unremarkable. absent: Tenderness - Extremities Exam Extremities exam: tenderness (lower extremities, chronic ) - Neurological Exam Neurological exam: Alert, CN II-XII Intact - Psychiatric Exam Psychiatric exam: Normal Affect, Normal Mood - Skin Skin Exam: Dry, Intact, Warm Discharge Plan - Follow Up Plan Condition: FAIR Disposition: HOME/ ROUTINE <Gregory Estrada - Last Filed: 07/17/18 14:50> Provider - Provider Date of Admission: 07/15/18 14:23 Attending physician: Gregory Estrada MD Consults: 07/13/18 19:11 Nursing Referral for Wound Care Routine Comment: Physician Instructions: Reason For Exam: Stage 2 to sacrum 07/13/18 23:02 Case Management Referral Routine Comment: NEEDS ASSISTANCE AT HOME Physician Instructions: Reason For Exam: EVALUATION Reason for Referral: Chemical Laboratory Technician Eval Inpatient STRATEGIC ACCOUNT EXECUTIVE Core Measures Referral Routine Comment: Physician Instructions: Reason For Exam: EVALUATION Nursing Referral for Wound Care Routine Comment: SACRAL WOUNDS Physician Instructions: Reason For Exam: EVALUATION Transition In Care/Readmission Reduction Routine Comment: Physician Instructions: Reason For Exam: EVALUATION 07/13/18 23:07 Nursing Referral for Palliative Care Routine Comment: Physician Instructions: Reason For Exam: EVALUATION Social Work Referral Routine Comment: NEEDS ASSISTANCE AT HOME Physician Instructions: Reason For Exam: EVALUATION 07/14/18 09:44 Physician Consult Routine Comment: Consulting Provider: Valentin Mai Consulting Physician: Valentin Mai Reason for Consult: Recent L1 kyphoplasty, now partially collapsed 07/14/18 10:14 Consult [Physician Consult] Routine Comment: Consulting Provider: Qasim Billingsley Consulting Physician: Qasim Billingsley Reason for Consult: back/leg pain 07/14/18 12:17 Consult [Physician Consult] Routine Comment: Consulting Provider: Cordelia Gates Consulting Physician: Cordelia Gates Reason for Consult: ams, hx depression 07/15/18 21:29 Nursing Referral for Wound Care Routine Comment: Physician Instructions: Reason For Exam: met criteria 07/16/18 06:57 Palliative Care Consult Routine Comment: Consulting Provider: Adilia Haynes Physician Instructions: Reason For Exam: Advance directive 07/16/18 11:05 Nursing Referral for Wound Care Routine Comment: Physician Instructions: Reason For Exam: SACRAL REDNESS 07/16/18 11:42 TCU [Evaluation for TRCU] Routine Comment: Physician Instructions: Reason For Exam: rehab, per fam request Hospital Course - Lab Results Lab Results: Micro Results 07/13/18 13:24 Urine Random Urine Culture - Final Gram Positive Cocci Most Recent Lab Values WBC 10.2 10^3/uL (4.5-11.0) 07/17/18 07:20 RBC 4.61 10^6/uL (3.5-6.1) 07/17/18 07:20 Hgb 14.0 g/dL (12.0-16.0) 07/17/18 07:20 Hct 42.3 % (36.0-48.0) 07/17/18 07:20 MCV 91.8 fl (80.0-105.0) 07/17/18 07:20 MCH 30.4 pg (25.0-35.0) 07/17/18 07:20 MCHC 33.1 g/dl (31.0-37.0) 07/17/18 07:20 RDW 13.7 % (11.5-14.5) 07/17/18 07:20 Plt Count 323 10^3/uL (120.0-450.0) 07/17/18 07:20 MPV 10.0 fl (7.0-11.0) 07/17/18 07:20 Neut % (Auto) 71.5 % (50.0-68.0) H 07/13/18 11:45 Lymph % (Auto) 18.6 % (22.0-35.0) L 07/13/18 11:45 Bullock % (Auto) 8.0 % (1.0-6.0) H 07/13/18 11:45 Eos % (Auto) 1.7 % (1.5-5.0) 07/13/18 11:45 Baso % (Auto) 0.2 % (0.0-3.0) 07/13/18 11:45 Lymph # (Auto) 1.9 (1.2-3.4) 07/13/18 11:45 Bullock # (Auto) 0.8 (0.1-0.6) H 07/13/18 11:45 Eos # (Auto) 0.2 (0.0-0.7) 07/13/18 11:45 Baso # (Auto) 0.02 K/mm3 (0.0-2.0) 07/13/18 11:45 Absolute Neuts (auto) 7.32 (1.4-6.5) H 07/13/18 11:45 PT 13.4 SECONDS (9.4-12.5) H 07/13/18 11:45 INR 1.19 07/13/18 11:45 APTT 40.8 Seconds (26.9-38.3) H 07/13/18 11:45 pCO2 36 mm/Hg (35-45) 07/14/18 15:20 pO2 104.0 mm/Hg (80-100) H 07/14/18 15:20 HCO3 23.9 mmol/L (21-28) 07/14/18 15:20 ABG pH 7.43 (7.35-7.45) 07/14/18 15:20 ABG Total CO2 25.0 mmol.L (22-28) 07/14/18 15:20 ABG O2 Saturation 99.7 % (95-98) H 07/14/18 15:20 ABG O2 Content 18.1 ML/dl (15-23) 07/14/18 15:20 ABG Base Excess -0.1 mmol/L (-2.0-3.0) 07/14/18 15:20 ABG Hemoglobin 13.3 g/dL (11.7-17.4) 07/14/18 15:20 ABG Carboxyhemoglobin 2.1 % (0.5-1.5) H 07/14/18 15:20 POC ABG HHb (Measured) 0.3 % (0-5) 07/14/18 15:20 ABG Methemoglobin 1.3 % (0.0-3.0) 07/14/18 15:20 ABG O2 Capacity 18.2 mL/dl (16-24) 07/14/18 15:20 Hgb O2 Saturation 96.3 % (95.0-98.0) 07/14/18 15:20 FiO2 28.0 % 07/14/18 15:20 Sodium 136 mmol/L (132-148) 07/17/18 07:20 Potassium 4.7 mmol/L (3.6-5.0) 07/17/18 07:20 Chloride 97 mmol/L (98-107) L 07/17/18 07:20 Carbon Dioxide 28 mmol/L (21-33) 07/17/18 07:20 Anion Gap 15 (10-20) 07/17/18 07:20 BUN 34 mg/dL (7-21) H 07/17/18 07:20 Creatinine 1.5 mg/dl (0.7-1.2) H 07/17/18 07:20 Est GFR ( Amer) 41 07/17/18 07:20 Est GFR (Non-Af Amer) 34 07/17/18 07:20 Random Glucose 90 mg/dL (70-110) 07/17/18 07:20 Calcium 10.7 mg/dL (8.4-10.5) H 07/17/18 07:20 Phosphorus 3.7 mg/dL (2.5-4.5) 07/13/18 11:45 Magnesium 2.4 mg/dL (1.7-2.2) H 07/13/18 11:45 Total Bilirubin 0.6 mg/dL (0.2-1.3) 07/17/18 07:20 AST 31 U/L (14-36) 07/17/18 07:20 ALT 23 U/L (7-56) 07/17/18 07:20 Alkaline Phosphatase 103 U/L (38-126) 07/17/18 07:20 Total Creatine Kinase 98 U/L (35-230) 07/13/18 11:45 Troponin I < 0.01 ng/mL 07/13/18 11:45 NT-Pro-B Natriuret Pep 362 pg/mL (0-450) 07/13/18 11:45 Total Protein 7.7 g/dL (5.8-8.3) 07/17/18 07:20 Albumin 4.1 g/dL (3.0-4.8) 07/17/18 07:20 Globulin 3.6 gm/dL 07/17/18 07:20 Albumin/Globulin Ratio 1.2 (1.1-1.8) 07/17/18 07:20 Lipase 108 U/L (23-300) 07/13/18 11:45 Urine Color Yellow (YELLOW) 07/13/18 13:24 Urine Appearance Clear (CLEAR) 07/13/18 13:24 Urine pH 6.0 (4.7-8.0) 07/13/18 13:24 Ur Specific [place] 1.025 (1.005-1.035) 07/13/18 13:24 Urine Protein Negative mg/dL (<30 mg/dL) 07/13/18 13:24 Urine Glucose (UA) Negative mg/dL (NEGATIVE) 07/13/18 13:24 Urine Ketones Trace mg/dL (NEGATIVE) H 07/13/18 13:24 Urine Blood Negative (NEGATIVE) 07/13/18 13:24 Urine Nitrate Negative (NEGATIVE) 07/13/18 13:24 Urine Bilirubin Moderate (NEGATIVE) H 07/13/18 13:24 Urine Urobilinogen 0.2 E.U./dL (<1 E.U./dL) 07/13/18 13:24 Ur Leukocyte Esterase Trace Monica/uL (NEGATIVE) H 07/13/18 13:24 Urine RBC None /hpf (0-2) 07/13/18 13:24 Urine WBC 1 - 3 /hpf (0-6) 07/13/18 13:24 Ur Epithelial Cells 4 - 5 /hpf (0-5) 07/13/18 13:24 Urine Bacteria Few /hpf (NONE) 07/13/18 13:24 - Hospital Course Hospital Course: Pt seen and examined by me. I have reviewed the note of the diagnostic medical sonographer and I agree with it. I have discussed the assessment and plan with the resident. I have reviewed the medications and the last labs.
[2018-07-17 15:37] VITALS: BP 123/75; PULSE 92; RESP 20; TEMP 97.3; O2SAT 96
--- NOTE | 2018-07-17 20:08 | CON ---
DATE: 07/17/2018 HISTORY OF PRESENT ILLNESS: The patient is a 78-year-old female with a history of depression and anxiety, who Psychiatry is following on the medical unit because of her history of depression and anxiety as well as disorientation and confusion on the medical floor. I reviewed Dr. Gates's notes, and Dr. Gates followed up with the patient on 07/15/2018 and 07/16/2018, and I met with the patient at bedside this morning on 07/17/2018. The patient appears to be a little bit more alert, and she is aware that she is at the hospital; however, overall, she remained disoriented with spotty focus and comprehension. Again, she was restless last night, and for some reason, she was given Benadryl instead of Seroquel p.r.n. She reports presently she is aware that she is in the hospital; however, she cannot provide month or year, and she has a tendency to repeat my questions, but not respond to that. She does consistently indicate that she is depressed and reported that she is not sleeping. She appears internally preoccupied, but she is not responding to internal stimuli. She denies perceptual disturbance; however, at one point she repeated the phrase of voices, "voices," and it is unclear she is indicating that she is experiencing auditory hallucinations or she is repeating my questions from before. Overall, she looks very tired, disoriented, and confused consistent with delirium and that her insight and judgment are intact. Vital signs and labs were reviewed. Relevant psychiatric medications include Seroquel 12.5 mg at bedtime p.r.n. The patient received one dose of 25 mg of Benadryl last night. IMPRESSION: The patient is likely delirious with slow improvement. History of depression and anxiety. Denies having any suicidal thoughts at this time. RECOMMENDATIONS: At this time, the patient remains confused consistent with delirium, but benefits from Seroquel 12.5 at bedtime, which I have changed to *------* as this recommendation has not been followed up on by staff. I would probably stay away from medications like benzos and Benadryl, as anticholinergic side effects can worsen confusion. Psychiatry will continue to follow up with the patient. Monitor her mental status. Evaluate her need for starting antidepressants. Next followup will be on 07/19/[address] Seymour. Yohannes Seymour MD
--- NOTE | 2018-07-18 02:40 | DS ---
HOSPITAL COURSE: The patient was seen and examined. I do agree with a note of medical biller/coder. The plan of care was also discussed. The patient had a CT of the abdomen showed no acute intracranial findings. She does have difficulty in ambulating, but does not wish to go to subacute rehab. The patient has a history of chronic back pain. She did have delirium when she came in that has improved, but not back to her baseline. The patient is currently on Lasix for her CHF secondary to diastolic dysfunction that is going to be stable. She is going to continue with her thyroid replacement for hypothyroidism. She is on Lipitor for dyslipidemia. She is going to continue with taking her pain medication but I did advise that pill will be cut in half so she can get less doses of her narcotics. She is on Percocet 10 and this should be 5 mg that she can take as needed. She is going to follow up in the office. I did advise the patient's daughter that it may be better if she goes to rehab facility. The patient herself did not wish to go and daughter did not feel that she can force her. The patient has a Campbell, this would be taken out prior to going home. Gregory Estrada MD
== END 2018-07-17 20:41 | disposition home or self-care (01) | DRG 552 ==
LOC: ED 11:06 → UNDOADMOB 15:04 → ERH 15:04 → 5RSO 17:44 → ERH 07-15 13:42 → INTOOBSV 07-15 14:23 → OBSVTOIN 07-15 14:23 → 5RSO 07-16 07:15
PROVIDERS: ADMIT Internal Medicine Nephrology; ATTEND Internal Medicine Nephrology
DX: M47.27 Other spondylosis with radiculopathy, lumbosacral region (principal); I50.32 Chronic diastolic (congestive) heart failure; J96.10 Chronic respiratory failure, unspecified whether with hypoxia or hypercapnia; M48.56XG Collapsed vertebra, not elsewhere classified, lumbar region, subsequent encounter for fracture with delayed healing; J44.9 Chronic obstructive pulmonary disease, unspecified; I25.10 Atherosclerotic heart disease of native coronary artery without angina pectoris; E03.9 Hypothyroidism, unspecified; E78.5 Hyperlipidemia, unspecified; I11.0 Hypertensive heart disease with heart failure; G89.29 Other chronic pain; Z66 Do not resuscitate; R41.0 Disorientation, unspecified; F32.9 Major depressive disorder, single episode, unspecified; M79.604 Pain in right leg; M79.605 Pain in left leg; F41.9 Anxiety disorder, unspecified; Z99.81 Dependence on supplemental oxygen; H91.90 Unspecified hearing loss, unspecified ear; Z95.0 Presence of cardiac pacemaker; Z87.891 Personal history of nicotine dependence

== ENCOUNTER 2018-07-22 17:12 | Inpatient (IN) | payer MEDICARE, OTHER ==
[2018-07-22 17:13] VITALS: BMI 29.7
--- NOTE | 2018-07-22 17:45 | ED PDOC ---
Arrival/HPI - General Chief Complaint: GI Problem Time Seen by Provider: 07/22/18 17:18 Historian: Patient - History of Present Illness Narrative History of Present Illness (Text): 07/22/18 17:36 78 year old female, with PMHx of back surgery in April 2018, CAD, COPD, chronic lung disease and O2 dependence, CHF, hypothyroidism, hyperlipidemia, lower extremity cellulitis, pancreatitis, anxiety disorder, depression, and back surgery with kyphoplasty (April 2018), presents to the emergency department complaining of diffuse abdominal pain and constipation for the past 6 days. Patient notes last bowel movement was 6 days ago and she has no urine output since last night. She reports secondary back pain, generalized weakness, decreased eating and drinking for the past couple of days. She denies bloody stool, vomiting, fever, chills, body aches, or any other complaint. PMD: Dr. Estrada Tree Trimmer: Dr. Levine Time/Duration: < week (6 days) Symptom Onset: Gradual Symptom Course: Unchanged Activities at Onset: Light Context: Home Past Medical History - Provider Review Nursing Documentation Reviewed: Yes - Infectious Disease Hx of Infectious Diseases: None - Tetanus Immunization Tetanus Immunization: Unknown - Cardiac Hx Cardiac Disorders: Yes Hx Congestive Heart Failure: Yes Hx Pacemaker: Yes - Pulmonary Hx Chronic Obstructive Pulmonary Disease (COPD): Yes - Neurological Hx Neurological Disorder: Yes Hx Dizziness: Yes Hx Migraine: Yes - HEENT Hx HEENT Disorder: Yes ([place]) Hx Cataracts: Yes (PAST SX) Hx Deafness: Yes - Renal Hx Renal Disorder: No - Endocrine/Metabolic Hx Endocrine Disorders: Yes Hx Hypothyroidism: Yes - Hematological/Oncological Hx Blood Disorders: No - Integumentary Hx Dermatological Disorder: Yes Other/Comment: Hx of bilateral LE cellulitis - Musculoskeletal/Rheumatological Hx Musculoskeletal Disorders: Yes Hx Back Pain: Yes Hx Falls: Yes Hx Fractures: Yes (compression fx L1 w/ kyphoplasty 05/11/18) Hx Unsteady Gait: Yes - Gastrointestinal Hx Gastrointestinal Disorders: Yes (COLON POLYPS,CONSTIPATION,GERD,DEIVERTICULITIS,) Other/Comment: constipation - Genitourinary/Gynecological Hx Genitourinary Disorders: Yes Hx Incontinence: Yes - Psychiatric Hx Psychophysiologic Disorder: No Hx Substance Use: No - Surgical History Hx Orthopedic Surgery: Yes (r knee) Other/Comment: carpal tunnel right hand, colonoscopies, left neck tumor, pacemaker 1999, generator change 2007, cardiac ablation, b/l cataract sx, t&a, kyphoplasty to L1 2019 - Anesthesia Hx Anesthesia Reactions: No Hx Malignant Hyperthermia: No - Suicidal Assessment Feels Threatened In Home Enviroment: No Family/Social History - Physician Review Nursing Documentation Reviewed: Yes Family/Social History: No Known Family HX Smoking Status: Former Smoker Hx Alcohol Use: No Hx Substance Use: No Allergies/Home Meds Allergies/Adverse Reactions: Allergies levofloxacin [From Levaquin] Allergy (Severe, Verified 07/22/18 17:20) ANAPHYLAXIS ceftriaxone [From Rocephin] Allergy (Verified 07/22/18 17:20) RASH Home Medications: Home Meds Medication Instructions Recorded Confirmed Albuterol 0.083% [Albuterol 0.083% 1 insert PO BID 06/26/18 07/22/18 Inhal Marylin (2.5 mg/3 ml) UD] Magnesium Oxide [Magox 400] 400 mg PO DAILY 06/26/18 07/22/18 Potassium Chloride [K-Dur 20 mEq 20 meq PO DAILY 06/26/18 07/22/18 ER Tab] Spironolactone [Aldactone] 50 mg PO DAILY 06/26/18 07/22/18 Metoprolol Tartrate [Lopressor] 25 mg PO DAILY 07/13/18 07/22/18 oxyCODONE [oxyCONTIN] 10 mg PO Q6H 07/13/18 07/22/18 Review of Systems - Physician Review All systems were reviewed & negative as marked: Yes - Review of Systems Constitutional: absent: Fevers Respiratory: absent: SOB, Cough Cardiovascular: absent: Chest Pain Gastrointestinal: Abdominal Pain, Constipation. absent: Diarrhea, Nausea, Vomiting Musculoskeletal: Back Pain. absent: Neck Pain Neurological: absent: Headache, Dizziness Physical Exam Appearance: Positive for: Well-Appearing, Non-Toxic, Comfortable Pain Distress: None Mental Status: No: Alert and Oriented X 3 (alert and oreinted x2 (person and place)) - Systems Exam Head: Present: Atraumatic, Normocephalic Pupils: Present: PERRL Extroacular Muscles: Present: EOMI Conjunctiva: Present: Normal Mouth: Present: Moist Mucous Membranes Neck: Present: Normal Range of Motion Respiratory/Chest: Present: Clear to Auscultation, Good Air Exchange. No: Respiratory Distress, Accessory Muscle Use Cardiovascular: Present: Regular Rate and Rhythm, Normal S1, S2. No: Murmurs Abdomen: Present: Tenderness (diffuse abdominal tenderness ) Back: Present: Normal Inspection Upper Extremity: Present: Normal Inspection. No: Cyanosis, Edema Lower Extremity: Present: Normal Inspection. No: Edema Neurological: Present: GCS=15, CN II-XII Intact, Speech Normal Skin: Present: Warm, Dry, Normal Color. No: Rashes Psychiatric: Present: Alert, Normal Insight, Normal Concentration, Other (patient is moaning on exam). No: Oriented x 3 (oriented x 2 to [address] ) Medical Decision Making ED Course and Treatment: 07/22/18 17:51 Impression: 78 year old female who presents to the emergency department complaining of abdominal pain and constipation. r/o obstruction r/o dehydration Plan: -- VBG -- EKG -- Labs - Chest X-ray -- Blood culture -- Urine Culture -- Urinalysis -- Reassess and disposition Prior Visits: Notes and results from previous visits were reviewed. Progress Notes: 07/22/18 17:54 EKG reviewed, shows: sinus [address] changes 07/22/18 18:[address] Lawton to f/u labs, UA, CT, reevaluate and disposition. - Lab Interpretations I have reviewed the lab results: Yes - RAD Interpretation Bit Gatherer: Radiologist - EKG Interpretation Interpreted by ED Physician: Yes Type: 12 lead EKG - Scribe Statement The provider has reviewed the documentation as recorded by the Scribe Pat Junior All medical record entries made by the Chikiibyazan were at my direction and personally dictated by me. I have reviewed the chart and agree that the record accurately reflects my personal performance of the history, physical exam, medical decision making, and the department course for this patient. I have also personally directed, reviewed, and agree with the discharge instructions and disposition. Disposition/Present on Arrival - Present on Arrival Any Indicators Present on Arrival: No History of DVT/PE: No History of Uncontrolled Diabetes: No Urinary Catheter: No History of Decub. Ulcer: No History Surgical Site Infection Following: None - Disposition Have Diagnosis and Disposition been Completed?: No Diagnosis: Abdominal pain, Back pain Disposition Time: 18:41 Patient Plan: Observation Condition: [facility]IR Forms: [employer] (Austrian)
[2018-07-22 18:39] LABS: BASO # 0.01 K/mm3 (0.0-2.0); BASO % 0.1 % (0.0-3.0); EOS # 0.1 (0.0-0.7); EOS % 0.5 % (1.5-5.0); HEMOGLOBIN 15.5 g/dL (12.0-16.0); LYMPH # 1.5 (1.2-3.4); LYMPH % 10.7 % (22.0-35.0); MEAN CORPUSCULAR HGB CONC 33.3 g/dl (31.0-37.0); MONO # 1.7 (0.1-0.6); MONO % 12.4 % (1.0-6.0); RED CELL DISTRIBUTION WIDTH 14.2 % (11.5-14.5); WHITE BLOOD COUNT 14.1 10^3/uL (4.5-11.0)
[2018-07-22 18:46] LABS: VENOUS BLOOD GAS BASE EXCESS -3.8 mmol/L (0.0-2.0); VENOUS BLOOD GAS PO2 129 mm/Hg (30-55); VENOUS BLOOD PH 7.35 (7.32-7.43)
[2018-07-22 18:49] LABS: INR 1.1; PARTIAL THROMBOPLASTIN TIME 34.7 Seconds (26.9-38.3); PROTHROMBIN TIME 12.2 SECONDS (9.4-12.5)
[2018-07-22] MEDS ORDERED: Morphine 2 mg/ml ISec IVP STA (19:07)
[2018-07-22 20:13] LABS: ALB/GLOB RATIO 1.1 (1.1-1.8); ALBUMIN 4.2 g/dL (3.0-4.8)
--- NOTE | 2018-07-22 20:16 | ED PDOC ---
Physical Exam Vital Signs Temp Pulse Resp BP Pulse Ox 07/22/18 17:13 98.7 F 112 H 18 118/83 96 Medical Decision Making ED Course and Treatment: 07/22/18 19:00 Case endorsed to me by Dr. Ring, pending labs, Urinalysis, CT, re-evaluation, and disposition. 07/22/18 21:[address] Estrada, who is aware and agrees with plan. Accepts pt in to his service. Pt will be admitted to [facility] for diverticulitis and dehydration. 07/22/18 23:10 CT Abdomen and Pelvis: LUNG BASES: The lung bases appear clear. No pleural effusions are seen. LIVER: Unremarkable. GALLBLADDER AND BILE DUCTS: Status post cholecystectomy. No biliary ductal dilatation is evident. PANCREAS: There is fatty infiltration noted throughout the pancreas. SPLEEN: Unremarkable. ADRENAL GLANDS: Unremarkable. KIDNEYS, URETERS, AND BLADDER: The kidneys appear within normal limits. There is no hydronephrosis or hydroureter. No urinary calculi are seen. The urinary bladder appeared normal in size and configuration. STOMACH AND BOWEL: Unremarkable appearance of the stomach and bowel. No evidence of bowel obstruction. No evidence suggesting enteritis or colitis. Diverticulosis coli is seen; most pronounced in the lower descending, sigmoid and rectosigmoid regions. Subtle pericolonic haziness is noted in the distal sigmoid region thought compatible with acute diverticulitis. No pericolonic abscess formation or microperforation detected. APPENDIX: No evidence of acute appendicitis on CT examination. PERITONEUM: No free fluid. No free air. A moderate sized umbilical hernia is present which contains fat. LYMPH NODES: No lymphadenopathy is evident. REPRODUCTIVE: Unremarkable as visualized. VASCULATURE: No evidence of abdominal aortic aneurysm. Extensive atherosclerotic vascular plaquing is present. BONES: No aggressive appearing osseous lesion. No acute osseous pathology evident. There is noted to have been previous vertebroplasty of L1. IMPRESSION: 1. Diverticulosis coli with evidence of acute diverticulitis involving distal sigmoid segment. No complication detected. 2. Status post cholecystectomy. 3. Diffuse fatty infiltration of the pancreas. 4. Moderate-sized umbilical hernia containing fat. Electronically signed on Jul 22, 2018 10:54:11 PM EDT by: Fabio Bailey M.D., PALMER Certified By [facility] CBC[employer] Fellowship Trained MRI and CT Specialist - Lab Interpretations Lab Results: pO2 129 mm/Hg (30-55) H 07/22/18 18:32 VBG pH 7.35 (7.32-7.43) 07/22/18 18:32 VBG pCO2 39.0 (40-60) L 07/22/18 18:32 VBG HCO3 21.5 mmol/l (21-28) 07/22/18 18:32 VBG Total CO2 22.7 mmol.L (22-28) 07/22/18 18:32 VBG O2 Sat (Calc) 100.0 % (40-65) H 07/22/18 18:32 VBG Base Excess -3.8 mmol/L (0.0-2.0) L 07/22/18 18:32 VBG Potassium 12.2 mmol/L (3.6-5.2) H* 07/22/18 18:32 Sodium 127.0 mmol/L (132-148) L 07/22/18 18:32 Chloride 98.0 mmol/L (98-107) 07/22/18 18:32 Glucose 119 mg/dl (65-105) H 07/22/18 18:32 Lactate 1.4 mmol/L (0.7-2.1) 07/22/18 18:32 FiO2 21.0 % 07/22/18 18:32 Blood Gas Comments Specimen grossly hemolyzed 07/22/18 18:32 Crit Value Called To Miranda agustin 07/22/18 18:32 Crit Value Called By Izabella 07/22/18 18:32 Blood Gas Notified Time 1845 07/22/18 18:32 PT 12.2 SECONDS (9.4-12.5) 07/22/18 18:32 INR 1.10 07/22/18 18:32 APTT 34.7 Seconds (26.9-38.3) 07/22/18 18:32 Total Bilirubin 0.7 mg/dL (0.2-1.3) 07/22/18 19:28 AST 45 U/L (14-36) H D 07/22/18 19:28 ALT 22 U/L (7-56) 07/22/18 19:28 Alkaline Phosphatase 128 U/L (38-126) H D 07/22/18 19:28 Total Protein 8.1 g/dL (5.8-8.3) 07/22/18 19:28 Albumin 4.2 g/dL (3.0-4.8) 07/22/18 19:28 Globulin 3.9 gm/dL 07/22/18 19:28 Albumin/Globulin Ratio 1.1 (1.1-1.8) 07/22/18 19:28 Lipase 190 U/L (23-300) 07/22/18 19:28 - RAD Interpretation Radiology Orders: 07/22/18 17:35 CHEST PORTABLE [RAD] Stat 07/22/18 18:21 ABD & PELVIS W/O PO OR IV CONT [CT] Stat - Medication Orders Current Medication Orders: Discontinued Medications Morphine Sulfate (Morphine) 2 mg IVP STAT STA Stop: 07/22/18 19:08 Last Admin: 07/22/18 19:55 Dose: 2 mg MAR Pain Assessment Document 07/22/18 19:55 EB (Rec: 07/22/18 19:[address]) Pain Reassessment Is this a pain reassessment? No IVP Administration Document 07/22/18 19:55 EB (Rec: 07/22/18 19:[address]) Charges for Administration # of IVP Administrations 1 Disposition/Present on Arrival - Present on Arrival Any Indicators Present on Arrival: No History of DVT/PE: No History of Uncontrolled Diabetes: No Urinary Catheter: No History of Decub. Ulcer: No History Surgical Site Infection Following: None - Disposition Have Diagnosis and Disposition been Completed?: Yes Diagnosis: Abdominal pain, Back pain, Diverticulitis Disposition: HOSPITALIZED Disposition Time: 21:45 Patient Problems: Current Active Problems Problem Status Onset Abdominal pain Acute Back pain Chronic Condition: FAIR
[2018-07-22 20:48] LABS: PH,URINE 5.5 (4.7-8.0); URINE BILIRUBIN SMALL (NEGATIVE); URINE BLOOD SMALL (NEGATIVE); URINE GLUCOSE (UA) NEGATIVE (NEGATIVE); URINE LEUKOCYTE ESTERASE MODERATE Leu/uL (NEGATIVE); URINE PROTEIN TRACE mg/dL (<30 mg/dL); URINE UROBILINOGEN 0.2 E.U./dL (<1 E.U./dL)
[2018-07-22 20:49] LABS: URINE APPEARANCE SL CLOUDY (CLEAR); URINE COLOR YELLOW (YELLOW)
[2018-07-22 21:08] LABS: URINE BACTERIA MANY /hpf; URINE WBC TNTC /hpf (0-6)
[2018-07-22] MEDS ORDERED: Aztreonam 1 Gm in NS 100mL 100 ML IVPB STA (21:41)
[2018-07-22] MEDS: Sodium Chloride 0.9% 1,000 ML IV SCH (21:47)
[2018-07-22] MEDS ORDERED: metroNIDAZOLE IV 500 mg/100 ml 500 MG/100 ML BAG IVPB STA (22:59)
[2018-07-23] MEDS ORDERED: Sodium Chloride 0.9% 1,000 ML IV STA (00:28)
[2018-07-23] MEDS: Morphine 2 mg/ml ISec IVP PRN ×4 (02:01→18:10)
--- NOTE | 2018-07-23 07:41 | RAD ---
Date of service: 07/22/2018 HISTORY: Sepsis Patient COMPARISON: 07/13/2018 TECHNIQUE: 1 view obtained. FINDINGS: LUNGS: No active pulmonary disease. PLEURA: No significant pleural effusion identified, no pneumothorax apparent. CARDIOVASCULAR: Aortic calcification Normal cardiac size. No pulmonary vascular congestion. OSSEOUS STRUCTURES: No significant abnormalities. VISUALIZED UPPER ABDOMEN: Normal. OTHER FINDINGS: Dual lead pacemaker IMPRESSION: No active disease.
--- NOTE | 2018-07-23 09:34 | CT ---
Date of service: 07/22/2018 PROCEDURE: CT Abdomen and Pelvis without intravenous contrast HISTORY: abd pain; constipation COMPARISON: None. TECHNIQUE: Technique. Contrast dose: Radiation dose: Total exam DLP = 918.28 mGy-cm. This CT exam was performed using one or more of the following dose reduction techniques: Automated exposure control, adjustment of the mA and/or kV according to patient size, and/or use of iterative reconstruction technique. FINDINGS: LOWER THORAX: Unremarkable. LIVER: Unremarkable. No gross lesion or ductal dilatation. GALLBLADDER AND BILE DUCTS: Cholecystectomy. PANCREAS: Unremarkable. No gross lesion or ductal dilatation. SPLEEN: Unremarkable. ADRENALS: Unremarkable. No mass. KIDNEYS AND URETERS: Unremarkable. No hydronephrosis. No solid mass. VASCULATURE: Unremarkable. No aortic aneurysm. No aortic atherosclerotic calcification or mural plaque present. BOWEL: Diverticulosis with minimal pericolonic fat infiltration along the sigmoid colon compatible with diverticulitis. No evidence of abscess or perforation. Moderate size fat containing umbilical hernia. APPENDIX: Unremarkable. Normal appendix. PERITONEUM: Unremarkable. No free fluid. No free air. LYMPH NODES: Unremarkable. No enlarged lymph nodes. BLADDER: Unremarkable. REPRODUCTIVE: Unremarkable. BONES: No acute fracture. OTHER FINDINGS: None. IMPRESSION: Diverticulosis with minimal pericolonic fat infiltration along the sigmoid colon compatible with diverticulitis. No evidence of abscess or perforation. Moderate size fat containing umbilical hernia. Cholecystectomy.
[2018-07-23] MEDS: Sodium Chloride 0.9% 1,000 ML IV SCH ×2 (10:14→22:39)
--- NOTE | 2018-07-23 11:15 | CP.PCM.CON ---
<Ashish Victor - Last Filed: 07/23/18 11:25> History of Present Illness - History of Present Illness History of Present Illness: Ashish Vicotr D.O. PGY-3, Internal Medicine Resident, Infectious Disease Consultation Note 78-year-old female with a past medical history of hyperlipidemia, hypertension, hypothyroidism, heart failure with preserved ejection fraction, CAD status post pacemaker, COPD on home oxygen, and anxiety disorder with depression who presented for complaints of abdominal pain and constipation for approximately 6 days. Infectious disease consultation was requested for diverticulitis. Patient was seen and examined at bedside. Patient unable to provide most history. She appears confused and has to be redirected multiple times to try to get an answer and still she then appears uncomfortable with abdominal pain that appears severe and so information cannot be obtained from her. Most of the information was obtained from review of the chart including the previous discharge summary. Review of Systems - Review of Systems Systems not reviewed;Unavailable: Dementia Past Patient History - Infectious Disease Hx of Infectious Diseases: None - Tetanus Immunizations Tetanus Immunization: Unknown - Past Medical History & Family History Past Medical History?: Yes - Past Social History Smoking Status: Never Smoked - CARDIAC Hx Congestive Heart Failure: Yes - PULMONARY Hx Chronic Obstructive Pulmonary Disease (COPD): Yes - NEUROLOGICAL Hx Neurological Disorder: Yes Hx Dizziness: Yes Hx Migraine: Yes - HEENT Hx HEENT Problems: Yes ([place]) Hx Cataracts: Yes (PAST SX) Hx Deafness: Yes - RENAL Hx Chronic Kidney Disease: No - ENDOCRINE/METABOLIC Hx Endocrine Disorders: Yes Hx Hypothyroidism: Yes - HEMATOLOGICAL/ONCOLOGICAL Hx Blood Disorders: No - INTEGUMENTARY Hx Dermatological Problems: Yes Other/Comment: Hx of bilateral LE cellulitis - MUSCULOSKELETAL/RHEUMATOLOGICAL Hx Falls: No - GASTROINTESTINAL Hx Gastrointestinal Disorders: Yes (COLON POLYPS,CONS TIPATION,GERD,DEIVERTICULITIS,) Other/Comment: constipation - GENITOURINARY/GYNECOLOGICAL Hx Genitourinary Disorders: Yes Hx Incontinence: Yes - PSYCHIATRIC Hx Psychophysiologic Disorder: No Hx Substance Use: No - SURGICAL HISTORY Hx Orthopedic Surgery: Yes (r knee) Other/Comment: carpal tunnel right hand, colonoscopies, left neck tumor, pacemaker 1999, generator change 2007, cardiac ablation, b/l cataract sx, t&a, kyphoplasty to L1 2019 - ANESTHESIA Hx Anesthesia Reactions: No Hx Malignant Hyperthermia: No Meds Allergies/Adverse Reactions: Allergies Allergy/AdvReac Type Severity Reaction Status Date / Time levofloxacin [From Levaquin] Allergy Severe ANAPHYLAXIS Verified 07/22/18 17:20 ceftriaxone [From Rocephin] Allergy RASH Verified 07/22/18 17:20 - Medications Medications: Current Medications Sodium Chloride (Sodium Chloride 0.9%) 1,000 mls @ 80 mls/hr IV .[id number] GRET[facility] Last Admin: 07/23/18 10:14 Dose: 80 mls/hr Sodium Chloride (Sodium Chloride 0.9%) 1,000 mls @ 80 mls/hr IV .[id number] STA Stop: 07/23/18 12:57 Last Admin: 07/23/18 02:02 Dose: Not Given Meropenem (Merrem Iv 1 Gm Premix) 1 gm in 50 mls @ 12.5 mls/hr IVPB Q12 [facility]; Protocol Stop: 07/30/18 11:01 Morphine Sulfate (Morphine) 2 mg IVP Q4H PRN PRN Reason: Pain, moderate (4-7) Last Admin: 07/23/18 10:14 Dose: 2 mg Physical Exam - Constitutional Appears: Non-toxic, In Acute Distress - Head Exam Head Exam: ATRAUMATIC, NORMOCEPHALIC - Eye Exam Eye Exam: absent: Scleral icterus - ENT Exam ENT Exam: Mucous Membranes Dry - Neck Exam Neck exam: Positive for: Normal Inspection - Respiratory Exam Respiratory Exam: absent: Rhonchi, Wheezes - Cardiovascular Exam Cardiovascular Exam: +S1, +S2. absent: Rubs - GI/Abdominal Exam GI & Abdominal Exam: Hypoactive Bowel Sounds, Soft, Tenderness (LLQ). absent: Distended - Extremities Exam Extremities exam: Negative for: calf tenderness, pedal edema - Neurological Exam Additional comments: awake, alert, unable to orient, LORETA - Skin Skin Exam: Dry, Warm Results - Vital Signs Recent Vital Signs: Last Vital Signs Temp 98.3 F 07/23/18 06:00 Pulse 101 H 07/23/18 06:00 Resp 18 07/23/18 06:00 BP 139/79 07/23/18 06:00 Pulse Ox 96 07/23/18 06:00 - Labs Result Diagrams: 07/22/18 18:32 07/22/18 19:28 Labs: Laboratory Results - last 24 hr 07/22/18 07/22/18 07/22/18 18:32 18:32 18:32 WBC 14.1 H D RBC 5.00 Hgb 15.5 Hct 46.5 MCV 93.0 MCH 31.0 MCHC 33.3 RDW 14.2 Plt Count 317 MPV 11.0 Neut % (Auto) 76.3 H Lymph % (Auto) 10.7 L [place] % (Auto) 12.4 H Eos % (Auto) 0.5 L Baso % (Auto) 0.1 Lymph # (Auto) 1.5 [place] # (Auto) 1.7 H Eos # (Auto) 0.1 Baso # (Auto) 0.01 Absolute Neuts (auto) 10.74 H PT 12.2 INR 1.10 APTT 34.7 pO2 129 H VBG pH 7.35 VBG pCO2 39.0 L VBG HCO3 21.5 VBG Total CO2 22.7 VBG O2 Sat (Calc) 100.0 H VBG Base Excess -3.8 L VBG Potassium 12.2 H* Sodium 127.0 L Chloride 98.0 Glucose 119 H Lactate 1.4 FiO2 21.0 Blood Gas Comments Specimen grossly hemolyzed Crit Value Called To Miranda agustin Crit Value Called By Etq Blood Gas Notified Time 1845 Potassium Carbon Dioxide Anion Gap BUN Creatinine Est GFR ( Amer) Est GFR (Non-Af Amer) Random Glucose Calcium Phosphorus Magnesium Total Bilirubin AST ALT Alkaline Phosphatase Total Protein Albumin Globulin Albumin/Globulin Ratio Lipase Venous Blood Potassium 12.2 H* Urine Color Urine Appearance Urine pH Ur Specific [place] Urine Protein Urine Glucose (UA) Urine Ketones Urine Blood Urine Nitrate Urine Bilirubin Urine Urobilinogen Ur Leukocyte Esterase Urine RBC Urine WBC Ur Epithelial Cells Urine Bacteria 07/22/18 07/22/18 19:28 20:30 WBC RBC Hgb Hct MCV MCH MCHC RDW Plt Count MPV Neut % (Auto) Lymph % (Auto) [place] % (Auto) Eos % (Auto) Baso % (Auto) Lymph # (Auto) [place] # (Auto) Eos # (Auto) Baso # (Auto) Absolute Neuts (auto) PT INR APTT pO2 VBG pH VBG pCO2 VBG HCO3 VBG Total CO2 VBG O2 Sat (Calc) VBG Base Excess VBG Potassium Sodium 135 Chloride 98 Glucose Lactate FiO2 Blood Gas Comments Crit Value Called To Crit Value Called By Blood Gas Notified Time Potassium 4.7 Carbon Dioxide 23 Anion Gap 19 BUN 61 H Creatinine 1.5 H Est GFR ( Amer) 41 Est GFR (Non-Af Amer) 34 Random Glucose 117 H Calcium 11.0 H Phosphorus 3.9 Magnesium 2.6 H Total Bilirubin 0.7 AST 45 H D ALT 22 Alkaline Phosphatase 128 H D Total Protein 8.1 Albumin 4.2 Globulin 3.9 Albumin/Globulin Ratio 1.1 Lipase 190 Venous Blood Potassium Urine Color Yellow Urine Appearance Sl cloudy Urine pH 5.5 Ur Specific [place] 1.020 Urine Protein Trace H Urine Glucose (UA) Negative Urine Ketones Negative Urine Blood Small H Urine Nitrate Negative Urine Bilirubin Small H Urine Urobilinogen 0.2 Ur Leukocyte Esterase Moderate H Urine RBC 10 - 15 H Urine WBC Tntc H Ur Epithelial Cells 10 - 12 H Urine Bacteria Many Assessment & Plan - Assessment and Plan (Free Text) Assessment: 78-year-old female with a past medical history of hyperlipidemia, hypertension, hypothyroidism, heart failure with preserved ejection fraction, CAD status post pacemaker, COPD on home oxygen, and anxiety disorder with depression who presented for complaints of abdominal pain and constipation for approximately 6 days. Infectious disease consultation was requested for diverticulitis. Plan: Sepsis likely secondary to diverticulitis (3 out of 4 SIRS with leukocytosis/tachycardia/tachypnea) CAD status post pacemaker COPD on home O2 Heart failure with preserved ejection fraction Hypothyroidism Hyperlipidemia Anxiety and depression CT of the abdomen and pelvis shows diverticulitis of the sigmoid colon After a very extensive review of the chart, over the last couple of years it appears that levofloxacin started as a dysphasia issue and then somehow the allergy got converted to an anaphylactic reaction Unable to confirm this with the patient given her mental status Ceftriaxone as well has been given multiple times as an inpatient the last of which was in August 2017 which she completed 3 days worth and extensive chart dive reveals no nursing notes indicating any rash around any of the 3 days that she was receiving at however it is documented as giving a rash We will start on meropenem 1 g every 12 extended infusion given that her creatinine clearance is calculated is 31 for her age, creatinine, weight and height We will discuss with primary team We will follow with you Patient was seen and examined and case discussed with attending physician Thank you for the pleasure participating in the care of this interesting patient - Date & Time Date: 07/23/18 Time: 09:40 <Fausto Wild S - Last Filed: 07/23/18 22:41> Meds - Medications Medications: Current Medications Albuterol/Ipratropium (Duoneb 3 Mg/0.5 Mg (3 Ml) Ud) 3 ml IH [id number] PRN PRN Reason: Shortness of Breath Alprazolam (Xanax) 0.25 mg PO TID PRN; Protocol PRN Reason: Anxiety Stop: 07/30/18 13:47 Aspirin (Ecotrin) 81 mg PO DAILY [facility] Last Admin: 07/23/18 14:00 Dose: 81 mg Atorvastatin Calcium (Lipitor) 10 mg PO DIN [facility] Last Admin: 07/23/18 18:10 Dose: 10 mg Famotidine (Pepcid) 20 mg PO HS [facility] Last Admin: 07/23/18 21:19 Dose: 20 mg Furosemide (Lasix) 40 mg PO 0800,1400 [facility] Last Admin: 07/23/18 14:00 Dose: 40 mg Sodium Chloride (Sodium Chloride 0.9%) 1,000 mls @ 80 mls/hr IV .[id number] [facility] Last Admin: 07/23/18 10:14 Dose: 80 mls/hr Meropenem (Merrem Iv 1 Gm Premix) 1 gm in 50 mls @ 12.5 mls/hr IVPB Q12 [facility]; Protocol Stop: 07/30/18 11:01 Last Admin: 07/23/18 21:19 Dose: 12.5 mls/hr Levothyroxine Sodium (Synthroid) 100 mcg PO DAILY [facility] Last Admin: 07/23/18 14:01 Dose: 100 mcg Metoprolol Tartrate (Lopressor) 25 mg PO DAILY [facility] Last Admin: 07/23/18 14:00 Dose: 25 mg Morphine Sulfate (Morphine) 2 mg IVP Q4H PRN PRN Reason: Pain, moderate (4-7) Last Admin: 07/23/18 18:10 Dose: 2 mg Spironolactone (Aldactone) 50 mg PO DAILY [facility] Results - Vital Signs Recent Vital Signs: Last Vital Signs Temp 98.3 F 07/23/18 20:00 Pulse 74 07/23/18 20:00 Resp 18 07/23/18 20:00 BP 128/69 07/23/18 20:00 Pulse Ox 97 03/28/19 20:00 - Labs Result Diagrams: 07/22/18 18:32 07/22/18 19:28 Assessment & Plan - Assessment and Plan (Free Text) Plan: Infectious Diseases Attending Physician Attestation Patient seen and examined at bedside, discussed with manager of medical. I have reviewed the HPI, ROS, personal, social, family histories, physical examination findings. I have also reviewed the pertinent labs and diagnostic imaging. I have fully participiated in the care of this patient. I agree with the above findings, assessment, plan. In addition, we have started Merrem for patient with acute sigmoid diverticulitis and will monitor clinical response.
[2018-07-23] MEDS: Meropenem IV 1 gm in NS 1 GM/50 ML BAG IVPB SCH ×2 (11:53→21:19)
--- NOTE | 2018-07-23 12:55 | CP.PCM.APN ---
Subjective - Date & Time of Evaluation Date of Evaluation: 07/23/18 Time of Evaluation: 12:00 - Subjective Subjective: pt seen and examined at bedside, pt in NAD, appears confused -not answering questions appropriately when asked about generalized pain or abd pain - patient with Avysis in place. Pt not answering questions only stating that she can hear me. Review of Systems - Review of Systems Systems not reviewed;Unavailable: Altered Mental Status Objective - Vital Signs/Intake and Output Vital Signs (last 24 hours): Temp Pulse Resp BP Pulse Ox 98.3 F 101 H 18 139/79 96 07/23/18 06:00 07/23/18 06:00 07/23/18 06:00 07/23/18 06:00 07/23/18 06:00 - Medications Medications: Current Medications Sodium Chloride (Sodium Chloride 0.9%) 1,000 mls @ 80 mls/hr IV .[id number] [facility] Last Admin: 07/23/18 10:14 Dose: 80 mls/hr Sodium Chloride (Sodium Chloride 0.9%) 1,000 mls @ 80 mls/hr IV .[id number] STA Stop: 07/23/18 12:57 Last Admin: 07/23/18 02:02 Dose: Not Given Meropenem (Merrem Iv 1 Gm Premix) 1 gm in 50 mls @ 12.5 mls/hr IVPB Q12 [facility]; Protocol Stop: 07/30/18 11:01 Last Admin: 07/23/18 11:53 Dose: 12.5 mls/hr Morphine Sulfate (Morphine) 2 mg IVP Q4H PRN PRN Reason: Pain, moderate (4-7) Last Admin: 07/23/18 10:14 Dose: 2 mg - Labs Labs: 07/22/18 18:32 07/22/18 19:28 PT 12.2 SECONDS (9.4-12.5) 07/22/18 18:32 INR 1.10 07/22/18 18:32 APTT 34.7 Seconds (26.9-38.3) 07/22/18 18:32 - Constitutional Appears: No Acute Distress - Head Exam Head Exam: NORMOCEPHALIC - Eye Exam Eye Exam: Normal appearance - ENT Exam ENT Exam: Normal Exam - Neck Exam Neck Exam: Normal Inspection - Respiratory Exam Respiratory Exam: Decreased Breath Sounds, NORMAL BREATHING PATTERN - Cardiovascular Exam Cardiovascular Exam: +S1, +S2 - GI/Abdominal Exam GI & Abdominal Exam: Soft, Tenderness, Normal Bowel Sounds - Extremities Exam Extremities Exam: Normal Capillary Refill - Neurological Exam Neurological Exam: Alert, Awake, Oriented x3 - Psychiatric Exam Psychiatric exam: Normal Affect, Normal Mood - Skin Skin Exam: Dry, Intact Assessment and Plan - Assessment and Plan (Free Text) Plan: ITS Impressions Chest X-Ray 07/22/18 17:35 IMPRESSION: No active disease. Abdomen/Pelvis CT 07/22/18 18:21 IMPRESSION: Diverticulosis with minimal pericolonic fat infiltration along the sigmoid colon compatible with diverticulitis. No evidence of abscess or perforation. Moderate size fat containing umbilical hernia. Cholecystectomy. Urine Color Yellow (YELLOW) 07/22/18 20:30 Urine Appearance Sl cloudy (CLEAR) 07/22/18 20:30 Urine pH 5.5 (4.7-8.0) 07/22/18 20:30 Ur Specific [place] 1.020 (1.005-1.035) 07/22/18 20:30 Urine Protein Trace mg/dL (<30 mg/dL) H 07/22/18 20:30 Urine Glucose (UA) Negative mg/dL (NEGATIVE) 07/22/18 20:30 Urine Ketones Negative mg/dL (NEGATIVE) 07/22/18 20:30 Urine Blood Small (NEGATIVE) H 07/22/18 20:30 Urine Nitrate Negative (NEGATIVE) 07/22/18 20:30 Urine Bilirubin Small (NEGATIVE) H 07/22/18 20:30 Urine Urobilinogen 0.2 E.U./dL (<1 E.U./dL) 07/22/18 20:30 Ur Leukocyte Esterase Moderate [place]/uL (NEGATIVE) H 07/22/18 20:30 Urine RBC 10 - 15 /hpf (0-2) H 07/22/18 20:30 Urine WBC Tntc /hpf (0-6) H 07/22/18 20:30 Ur Epithelial Cells 10 - 12 /hpf (0-5) H 07/22/18 20:30 Urine Bacteria Many /hpf (NONE) 07/22/18 20:30 78 yr old female with pmh sig for back surgery with kyphoplasty, CAD, PPM, COPD on o2 dependence, hypothyroidism, LE cellulitis, pancreatitis, anxiety disorder, depression, admitted with diffuse abdominal pain, no Bm in 6 days with leukocytosis, CT showing diverticulosis with minimal pericolonic fat infiltration along the sigmoid colon compatible with diverticulitis. pt noted with positive UA as well. BC and UC pending. pt remains NPO on IV fluids, IV antibiotics (Merrem and Flagyl) with ID consultation for acute diverticulitis. Will continue to follow clinical course BPCI/TIC - BPCIA/TIC Educated pt/family on BPCIA/CIR/Med to Bed Programs: N/A Flyers given, including [facility] Beneficiary letter: N/A Pt/family verbalized understanding & agreed to program: N/A
--- NOTE | 2018-07-23 13:53 | CP.PCM.HP ---
<Milton Marquis - Last Filed: 07/23/18 13:55> History of Present Illness - History of Present Illness History of Present Illness: 78 year old female with medical history of CAD, Pacemaker, COPD on home O2, diastolic CHF, hypothyroidism, HLD, pancreatitis, anxiety disorder and depression presents to the hospital for worsening abdominal pain for 6 days. Pain is nonradiating and there are no modifying factors. Patient states pain is located in the left lower quadrant. Patient is a poor historian and information provided is from prior medical records and staff. Patient was recently dischar angelo from the hospital 1 week ago. Patient was advised to go to [facility], but family chose to take her home instead. Medical Hx: as above Meds: Reviewed, as per MAR Allergies: levofloxacin, ceftriaxone Family Hx: Unable to obtain Social Hx: Former tobacco use. Denies alcohol or illicit drug use. Present on Admission - Present on Admission Any Indicators Present on Admission: No Review of Systems - Review of Systems Review of Systems: 12 point ROS as per HPI, otherwise negative Past Patient History - Infectious Disease Hx of Infectious Diseases: None - Tetanus Immunizations Tetanus Immunization: Unknown - Past Medical History & Family History Past Medical History?: Yes - Past Social History Smoking Status: Never Smoked - CARDIAC Hx Congestive Heart Failure: Yes - PULMONARY Hx Chronic Obstructive Pulmonary Disease (COPD): Yes - NEUROLOGICAL Hx Neurological Disorder: Yes Hx Dizziness: Yes Hx Migraine: Yes - HEENT Hx HEENT Problems: Yes ([place]) Hx Cataracts: Yes (PAST SX) Hx Deafness: Yes - RENAL Hx Chronic Kidney Disease: No - ENDOCRINE/METABOLIC Hx Endocrine Disorders: Yes Hx Hypothyroidism: Yes - HEMATOLOGICAL/ONCOLOGICAL Hx Blood Disorders: No - INTEGUMENTARY Hx Dermatological Problems: Yes Other/Comment: Hx of bilateral LE cellulitis - MUSCULOSKELETAL/RHEUMATOLOGICAL Hx Falls: No - GASTROINTESTINAL Hx Gastrointestinal Disorders: Yes (COLON POLYPS,CONSTIPATION,GERD,DEIVERTICULITIS,) Other/Comment: constipation - GENITOURINARY/GYNECOLOGICAL Hx Genitourinary Disorders: Yes Hx Incontinence: Yes - PSYCHIATRIC Hx Psychophysiologic Disorder: No Hx Substance Use: No - SURGICAL HISTORY Hx Orthopedic Surgery: Yes (r knee) Other/Comment: carpal tunnel right hand, colonoscopies, left neck tumor, pacemaker 1999, generator change 2007, cardiac ablation, b/l cataract sx, t&a, kyphoplasty to L1 2019 - ANESTHESIA Hx Anesthesia Reactions: No Hx Malignant Hyperthermia: No Meds Allergies/Adverse Reactions: Allergies Allergy/AdvReac Type Severity Reaction Status Date / Time levofloxacin [From Levaquin] Allergy Severe ANAPHYLAXIS Verified 07/22/18 17:20 ceftriaxone [From Rocephin] Allergy RASH Verified 07/22/18 17:20 Physical Exam - Constitutional Appears: Non-toxic, No Acute Distress, Confused - Head Exam Head Exam: ATRAUMATIC, NORMAL INSPECTION, NORMOCEPHALIC - Eye Exam Eye Exam: EOMI, Normal appearance. absent: Conjunctival injection - ENT Exam ENT Exam: Mucous Membranes Moist, Normal Exam - Neck Exam Neck exam: Positive for: Normal Inspection. Negative for: Lymphadenopathy - Respiratory Exam Respiratory Exam: Clear to Auscultation Bilateral, NORMAL BREATHING PATTERN. absent: Decreased Breath Sounds, Rhonchi, Wheezes - Cardiovascular Exam Cardiovascular Exam: RRR, +S1, +S2. absent: Systolic Murmur - GI/Abdominal Exam GI & Abdominal Exam: Normal Bowel Sounds, Soft, Tenderness (LLQ). absent: Distended, Guarding, Rebound - Extremities Exam Extremities exam: Positive for: normal inspection. Negative for: calf tenderness, pedal edema, tenderness - Neurological Exam Neurological exam: Alert, CN II-XII Intact Additional comments: Oriented to person - Psychiatric Exam Psychiatric exam: Anxious, Normal Affect, Normal Mood - Skin Skin Exam: Dry, Intact, Warm Results - Vital Signs Recent Vital Signs: Last Vital Signs Temp 98.3 F 07/23/18 06:00 Pulse 101 H 07/23/18 06:00 Resp 18 07/23/18 06:00 BP 139/79 07/23/18 06:00 Pulse Ox 96 07/23/18 06:00 - Labs Result Diagrams: 07/22/18 18:32 07/22/18 19:28 Labs: Laboratory Results - last 24 hr 07/22/18 07/22/18 07/22/18 18:32 18:32 18:32 WBC 14.1 H D RBC 5.00 Hgb 15.5 Hct 46.5 MCV 93.0 MCH 31.0 MCHC 33.3 RDW 14.2 Plt Count 317 MPV 11.0 Neut % (Auto) 76.3 H Lymph % (Auto) 10.7 L [place] % (Auto) 12.4 H Eos % (Auto) 0.5 L Baso % (Auto) 0.1 Lymph # (Auto) 1.5 [place] # (Auto) 1.7 H Eos # (Auto) 0.1 Baso # (Auto) 0.01 Absolute Neuts (auto) 10.74 H PT 12.2 INR 1.10 APTT 34.7 pO2 129 H VBG pH 7.35 VBG pCO2 39.0 L VBG HCO3 21.5 VBG Total CO2 22.7 VBG O2 Sat (Calc) 100.0 H VBG Base Excess -3.8 L VBG Potassium 12.2 H* Sodium 127.0 L Chloride 98.0 Glucose 119 H Lactate 1.4 FiO2 21.0 Blood Gas Comments Specimen grossly hemolyzed Crit Value Called To Miranda agustin Crit Value Called By Etq Blood Gas Notified Time 1844 Potassium Carbon Dioxide Anion Gap BUN Creatinine Est GFR ( Amer) Est GFR (Non-Af Amer) Random Glucose Calcium Phosphorus Magnesium Total Bilirubin AST ALT Alkaline Phosphatase Total Protein Albumin Globulin Albumin/Globulin Ratio Lipase Venous Blood Potassium 12.2 H* Urine Color Urine Appearance Urine pH Ur Specific [place] Urine Protein Urine Glucose (UA) Urine Ketones Urine Blood Urine Nitrate Urine Bilirubin Urine Urobilinogen Ur Leukocyte Esterase Urine RBC Urine WBC Ur Epithelial Cells Urine Bacteria 07/22/18 07/22/18 19:28 20:30 WBC RBC Hgb Hct MCV MCH MCHC RDW Plt Count MPV Neut % (Auto) Lymph % (Auto) [place] % (Auto) Eos % (Auto) Baso % (Auto) Lymph # (Auto) [place] # (Auto) Eos # (Auto) Baso # (Auto) Absolute Neuts (auto) PT INR APTT pO2 VBG pH VBG pCO2 VBG HCO3 VBG Total CO2 VBG O2 Sat (Calc) VBG Base Excess VBG Potassium Sodium 135 Chloride 98 Glucose Lactate FiO2 Blood Gas Comments Crit Value Called To Crit Value Called By Blood Gas Notified Time Potassium 4.7 Carbon Dioxide 23 Anion Gap 19 BUN 61 H Creatinine 1.5 H Est GFR ( Amer) 41 Est GFR (Non-Af Amer) 34 Random Glucose 117 H Calcium 11.0 H Phosphorus 3.9 Magnesium 2.6 H Total Bilirubin 0.7 AST 45 H D ALT 22 Alkaline Phosphatase 128 H D Total Protein 8.1 Albumin 4.2 Globulin 3.9 Albumin/Globulin Ratio 1.1 Lipase 190 Venous Blood Potassium Urine Color Yellow Urine Appearance Sl cloudy Urine pH 5.5 Ur Specific [place] 1.020 Urine Protein Trace H Urine Glucose (UA) Negative Urine Ketones Negative Urine Blood Small H Urine Nitrate Negative Urine Bilirubin Small H Urine Urobilinogen 0.2 Ur Leukocyte Esterase Moderate H Urine RBC 10 - 15 H Urine WBC Tntc H Ur Epithelial Cells 10 - 12 H Urine Bacteria Many Assessment & Plan - Assessment and Plan (Free Text) Plan: Acute diverticulitis delirium Chronic respiratory failure COPD on home O2 Diastolic CHF Pacemaker Hypothyroidism HLD Patient admitted for acute diverticulitis. Prior medical records reviewed. Lab work and imaging reviewed. CT abdomen/pelvis demonstrates acute sigmoid diverticulitis. We will keep the patient NPO and continue NS @ 80 cc/hr. EKG reviewed. Patient will be seen by infectious disease. Patient will continue on O2 and duonebs as needed for COPD. Patient will continue on ASA, lipitor, Aldactone, Lopressor, and Lasix for CHF. Patient will continue on Levothyroxine for hypothyroidism and Morphine for pain. Patient will have Xanax for anxiety. Patient will be evaluated for TCU and seen by physical therapy. [place]z, PGY-3 <Gregory Estrada S - Last Filed: 07/24/18 21:13> Results - Vital Signs Recent Vital Signs: Last Vital Signs Temp 98.2 F 07/24/18 14:00 Pulse 80 07/24/18 14:00 Resp 20 07/24/18 14:00 BP 113/68 07/24/18 17:42 Pulse Ox 96 07/24/18 14:00 - Labs Result Diagrams: 07/24/18 07:20 07/22/18 19:28 Labs: Laboratory Results - last 24 hr 07/24/18 07:20 WBC 10.9 D RBC 4.42 Hgb 13.7 Hct 41.8 MCV 94.6 MCH 31.0 MCHC 32.8 RDW 14.1 Plt Count 277 MPV 10.5 Assessment & Plan - Assessment and Plan (Free Text) Plan: Pt seen and examined by me. This is a late entry.I have reviewed the note of the medical insurance claims processor and I agree with it. I have discussed the assessment and plan with the resident. I have reviewed the medications and the last labs.
[2018-07-23] MEDS ORDERED: Albuterol-Ipratrop 3 mg / 0.5 (3 ml) UD IH PRN (13:56)
[2018-07-23] MEDS: Levothyroxine 100 MCG TAB PO SCH (14:01)
--- NOTE | 2018-07-23 16:35 | CARD ---
APPROVED REPORT Date of service: 07/22/2018 EKG Measurement Heart [id number] <Conclusion> Sinus tachycardia with fusion complexes Right axis deviation Poor Quality EKG.
[2018-07-24 07:44] LABS: MEAN PLATELET VOLUME 10.5 fl (7.0-11.0); RBC 4.42 10^6/uL (3.5-6.1); RED CELL DISTRIBUTION WIDTH 14.1 % (11.5-14.5); WHITE BLOOD COUNT 10.9 10^3/uL (4.5-11.0)
[2018-07-24 07:50] LABS: HEMOGLOBIN 13.7 g/dL (12.0-16.0); MEAN CELL VOLUME 94.6 fl (80.0-105.0); MEAN CORPUSCULAR HGB CONC 32.8 g/dl (31.0-37.0)
[2018-07-24] MEDS: Meropenem IV 1 gm in NS 1 GM/50 ML BAG IVPB SCH ×2 (10:10→21:48)
[2018-07-24] MEDS: Morphine 2 mg/ml ISec IVP PRN ×3 (10:11→23:47)
[2018-07-24] MEDS: Levothyroxine 100 MCG TAB PO SCH (10:12)
--- NOTE | 2018-07-24 11:21 | CP.PCM.PCO ---
Physician Communication Note - Physician Communication Note Physician Communication Note: pt seen at bedside, pt with positive UC on IV antibiotics, PT recs noted Additional Comments - Additional Comments Additional Comments: for THADDEUS, discuss with CM. plans to advance diet today to liquid as pt is currently NPO awaiting id and senst of UC , pt continued on IV merem ID recs noted. will follow
--- NOTE | 2018-07-24 12:01 | CP.PCM.PN ---
<Ashish Victor - Last Filed: 07/24/18 11:58> Subjective - Date & Time of Evaluation Date of Evaluation: 07/24/18 Time of Evaluation: 08:10 - Subjective Subjective: Ashish Victor D.O. PGY-3, Internal Medicine Resident, Infectious Disease Progress Note 78-year-old female with a past medical history of hyperlipidemia, hypertension, hypothyroidism, heart failure with preserved ejection fraction, CAD status post pacemaker, COPD on home oxygen, and anxiety disorder with depression who presented for complaints of abdominal pain and constipation for approximately 6 days. Infectious disease consultation was requested for diverticulitis. Patient was seen and examined at bedside. Appears confused as before. Complains of abdominal pain still. Objective - Vital Signs/Intake and Output Vital Signs (last 24 hours): Temp Pulse Resp BP Pulse Ox 98.2 F 88 19 110/65 100 07/24/18 06:00 07/24/18 10:11 07/24/18 06:00 07/24/18 10:15 07/24/18 06:00 Intake and Output: 07/24/18 07/24/18 06:59 18:59 Intake Total 0 Output Total 2 Balance -2 - Medications Medications: Current Medications Albuterol/Ipratropium (Duoneb 3 Mg/0.5 Mg (3 Ml) Ud) 3 ml IH [id number] PRN PRN Reason: Shortness of Breath Alprazolam (Xanax) 0.25 mg PO TID PRN; Protocol PRN Reason: Anxiety Stop: 07/30/18 13:47 Last Admin: 07/24/18 11:14 Dose: 0.25 mg Aspirin (Ecotrin) 81 mg PO DAILY [facility] Last Admin: 07/24/18 10:11 Dose: 81 mg Atorvastatin Calcium (Lipitor) 10 mg PO DIN [facility] Last Admin: 07/23/18 18:10 Dose: 10 mg Famotidine (Pepcid) 20 mg PO HS [facility] Last Admin: 07/23/18 21:19 Dose: 20 mg Furosemide (Lasix) 40 mg PO 0800,1400 [facility] Last Admin: 07/24/18 10:15 Dose: 40 mg Sodium Chloride (Sodium Chloride 0.9%) 1,000 mls @ 80 mls/hr IV .[id number] [facility] Last Admin: 07/23/18 22:39 Dose: 80 mls/hr Meropenem (Merrem Iv 1 Gm Premix) 1 gm in 50 mls @ 12.5 mls/hr IVPB Q12 [facility]; Protocol Stop: 07/30/18 11:01 Last Admin: 07/24/18 10:10 Dose: 12.5 mls/hr Levothyroxine Sodium (Synthroid) 100 mcg PO DAILY [facility] Last Admin: 07/24/18 10:12 Dose: 100 mcg Metoprolol Tartrate (Lopressor) 25 mg PO DAILY [facility] Last Admin: 07/24/18 10:11 Dose: 25 mg Morphine Sulfate (Morphine) 2 mg IVP Q4H PRN PRN Reason: Pain, moderate (4-7) Last Admin: 07/24/18 10:11 Dose: 2 mg Spironolactone (Aldactone) 50 mg PO DAILY [facility] Last Admin: 07/24/18 10:11 Dose: 50 mg - Labs Labs: 07/24/18 07:20 07/22/18 19:28 PT 12.2 SECONDS (9.4-12.5) 07/22/18 18:32 INR 1.10 07/22/18 18:32 APTT 34.7 Seconds (26.9-38.3) 07/22/18 18:32 - Constitutional Appears: Non-toxic, In Acute Distress, confused - Head Exam Head Exam: ATRAUMATIC, NORMOCEPHALIC - Eye Exam Eye Exam: absent: Scleral icterus - ENT Exam ENT Exam: Mucous Membranes Dry - Neck Exam Neck exam: Positive for: Normal Inspection - Respiratory Exam Respiratory Exam: absent: Rhonchi, Wheezes - Cardiovascular Exam Cardiovascular Exam: +S1, +S2. absent: Rubs - GI/Abdominal Exam GI & Abdominal Exam: Hypoactive Bowel Sounds, Soft, Tenderness (LLQ). absent: Distended - Extremities Exam Extremities exam: Negative for: calf tenderness, pedal edema - Neurological Exam Additional comments: awake, alert, unable to orient, LORETA - Skin Skin Exam: Dry, Warm Assessment and Plan - Assessment and Plan (Free Text) Assessment: 78-year-old female with a past medical history of hyperlipidemia, hypertension, hypothyroidism, heart failure with preserved ejection fraction, CAD status post pacemaker, COPD on home oxygen, and anxiety disorder with depression who presented for complaints of abdominal pain and constipation for approximately 6 days. Infectious disease consultation was requested for diverticulitis. Plan: Sepsis likely secondary to diverticulitis CAD status post pacemaker COPD on home O2 Heart failure with preserved ejection fraction Hypothyroidism Hyperlipidemia Anxiety and depression Has been afebrile Leukocytosis resolved Continue meropenem day 2 Urine growing GNR, will follow ID and sensitivity We will discuss with primary team We will follow with you Patient was seen and examined and case discussed with attending physician Thank you for the pleasure participating in the care of this interesting patient <Macho Mark - Last Filed: 07/24/18 12:23> Objective - Vital Signs/Intake and Output Vital Signs (last 24 hours): Temp Pulse Resp BP Pulse Ox 98.2 F 88 19 110/65 100 07/24/18 06:00 07/24/18 10:11 07/24/18 06:00 07/24/18 10:15 07/24/18 06:00 Intake and Output: 07/24/18 07/24/18 06:59 18:59 Intake Total 0 Output Total 2 Balance -2 - Medications Medications: Current Medications Albuterol/Ipratropium (Duoneb 3 Mg/0.5 Mg (3 Ml) Ud) 3 ml IH [id number] PRN PRN Reason: Shortness of Breath Alprazolam (Xanax) 0.25 mg PO TID PRN; Protocol PRN Reason: Anxiety Stop: 07/30/18 13:47 Last Admin: 07/24/18 11:14 Dose: 0.25 mg Aspirin (Ecotrin) 81 mg PO DAILY [facility] Last Admin: 07/24/18 10:11 Dose: 81 mg Atorvastatin Calcium (Lipitor) 10 mg PO DIN [facility] Last Admin: 07/23/18 18:10 Dose: 10 mg Famotidine (Pepcid) 20 mg PO HS [facility] Last Admin: 07/23/18 21:19 Dose: 20 mg Furosemide (Lasix) 40 mg PO 0800,1400 [facility] Last Admin: 07/24/18 10:15 Dose: 40 mg Sodium Chloride (Sodium Chloride 0.9%) 1,000 mls @ 80 mls/hr IV .[id number] [facility] Last Admin: 07/23/18 22:39 Dose: 80 mls/hr Meropenem (Merrem Iv 1 Gm Premix) 1 gm in 50 mls @ 12.5 mls/hr IVPB Q12 [facility]; Protocol Stop: 07/30/18 11:01 Last Admin: 07/24/18 10:10 Dose: 12.5 mls/hr Levothyroxine Sodium (Synthroid) 100 mcg PO DAILY [facility] Last Admin: 07/24/18 10:12 Dose: 100 mcg Metoprolol Tartrate (Lopressor) 25 mg PO DAILY [facility] Last Admin: 07/24/18 10:11 Dose: 25 mg Morphine Sulfate (Morphine) 2 mg IVP Q4H PRN PRN Reason: Pain, moderate (4-7) Last Admin: 07/24/18 10:11 Dose: 2 mg Spironolactone (Aldactone) 50 mg PO DAILY [facility] Last Admin: 07/24/18 10:11 Dose: 50 mg - Labs Labs: 07/24/18 07:20 07/22/18 19:28 PT 12.2 SECONDS (9.4-12.5) 07/22/18 18:32 INR 1.10 07/22/18 18:32 APTT 34.7 Seconds (26.9-38.3) 07/22/18 18:32 Attending/Attestation - Attestation I have personally seen and examined this patient.: Yes I have fully participated in the care of the patient.: Yes I have reviewed all pertinent clinical information, including history, physical exam and plan: Yes
--- NOTE | 2018-07-24 12:16 | CP.PCM.PN ---
<Milton Marquis - Last Filed: 07/24/18 12:13> Subjective - Date & Time of Evaluation Date of Evaluation: 07/24/18 Time of Evaluation: 07:10 - Subjective Subjective: Patient seen and examined at bedside. Patient mildly confused. No acute overnight events. Denies chest pain, shortness of breath, nausea, vomiting, diarrhea. Objective - Vital Signs/Intake and Output Vital Signs (last 24 hours): Temp Pulse Resp BP Pulse Ox 98.2 F 88 19 110/65 100 07/24/18 06:00 07/24/18 10:11 07/24/18 06:00 07/24/18 10:15 07/24/18 06:00 Intake and Output: 07/24/18 07/24/18 06:59 18:59 Intake Total 0 Output Total 2 Balance -2 - Medications Medications: Current Medications Albuterol/Ipratropium (Duoneb 3 Mg/0.5 Mg (3 Ml) Ud) 3 ml IH [id number] PRN PRN Reason: Shortness of Breath Alprazolam (Xanax) 0.25 mg PO TID PRN; Protocol PRN Reason: Anxiety Stop: 07/30/18 13:47 Last Admin: 07/24/18 11:14 Dose: 0.25 mg Aspirin (Ecotrin) 81 mg PO DAILY [facility] Last Admin: 07/24/18 10:11 Dose: 81 mg Atorvastatin Calcium (Lipitor) 10 mg PO DIN [facility] Last Admin: 07/23/18 18:10 Dose: 10 mg Famotidine (Pepcid) 20 mg PO HS [facility] Last Admin: 07/23/18 21:19 Dose: 20 mg Furosemide (Lasix) 40 mg PO 0800,1400 [facility] Last Admin: 07/24/18 10:15 Dose: 40 mg Sodium Chloride (Sodium Chloride 0.9%) 1,000 mls @ 80 mls/hr IV .[id number] [facility] Last Admin: 07/23/18 22:39 Dose: 80 mls/hr Meropenem (Merrem Iv 1 Gm Premix) 1 gm in 50 mls @ 12.5 mls/hr IVPB Q12 [facility]; Protocol Stop: 07/30/18 11:01 Last Admin: 07/24/18 10:10 Dose: 12.5 mls/hr Levothyroxine Sodium (Synthroid) 100 mcg PO DAILY [facility] Last Admin: 07/24/18 10:12 Dose: 100 mcg Metoprolol Tartrate (Lopressor) 25 mg PO DAILY [facility] Last Admin: 07/24/18 10:11 Dose: 25 mg Morphine Sulfate (Morphine) 2 mg IVP Q4H PRN PRN Reason: Pain, moderate (4-7) Last Admin: 07/24/18 10:11 Dose: 2 mg Spironolactone (Aldactone) 50 mg PO DAILY [facility] Last Admin: 07/24/18 10:11 Dose: 50 mg - Labs Labs: 07/24/18 07:20 07/22/18 19:28 PT 12.2 SECONDS (9.4-12.5) 07/22/18 18:32 INR 1.10 07/22/18 18:32 APTT 34.7 Seconds (26.9-38.3) 07/22/18 18:32 - Constitutional Appears: Non-toxic, No Acute Distress - Head Exam Head Exam: ATRAUMATIC, NORMAL INSPECTION, NORMOCEPHALIC - ENT Exam ENT Exam: Mucous Membranes Moist - Respiratory Exam Respiratory Exam: Clear to Ausculation Bilateral, NORMAL BREATHING PATTERN. absent: Chest Wall Tenderness, Rales, Rhonchi, Wheezes - Cardiovascular Exam Cardiovascular Exam: RRR, +S1, +S2. absent: Irregular Rhythm, Murmur - GI/Abdominal Exam GI & Abdominal Exam: Soft, Normal Bowel Sounds. absent: Distended, Tenderness, Rebound - Extremities Exam Extremities Exam: Normal Inspection. absent: Calf Tenderness, Pedal Edema, Tenderness - Neurological Exam Neurological Exam: Alert, Awake (Oriented x 1 ) - Psychiatric Exam Psychiatric exam: Anxious, Normal Affect - Skin Skin Exam: Dry, Intact, Normal Color, Warm Assessment and Plan - Assessment and Plan (Free Text) Plan: Acute diverticulitis Delirium Stage 2 sacral pressure wound Chronic respiratory failure COPD on home O2 Diastolic CHF Pacemaker Hypothyroidism HLD Patient will continue on Merrem for acute diverticulitis. We will advance patient to liquid diet and stop IVF. Patient will be seen by wound care nurse for sacral wound. Urine culture showing gram negative rods at this time, will follow for sensitivities. Patient will continue on O2 and duonebs as needed for COPD. Patient will continue on ASA, lipitor, Aldactone, Lopressor, and Lasix for CHF. Patient will continue on Levothyroxine for hypothyroidism and Morphine for pain. Patient will have Xanax for anxiety. Physical therapy recommend [facility]. Family will decide on placement. Benitez, PGY-3 <Gregory Estrada S - Last Filed: 07/24/18 19:52> Objective - Vital Signs/Intake and Output Vital Signs (last 24 hours): Temp Pulse Resp BP Pulse Ox 98.2 F 80 20 113/68 96 07/24/18 14:00 07/24/18 14:00 07/24/18 14:00 07/24/18 17:42 07/24/18 14:00 Intake and Output: 07/24/18 07/25/18 18:59 06:59 Intake Total 960 Balance 960 - Medications Medications: Current Medications Albuterol/Ipratropium (Duoneb 3 Mg/0.5 Mg (3 Ml) Ud) 3 ml IH [id number] PRN PRN Reason: Shortness of Breath Alprazolam (Xanax) 0.25 mg PO TID PRN; Protocol PRN Reason: Anxiety Stop: 07/30/18 13:47 Last Admin: 07/24/18 11:14 Dose: 0.25 mg Aspirin (Ecotrin) 81 mg PO DAILY [facility] Last Admin: 07/24/18 10:11 Dose: 81 mg Atorvastatin Calcium (Lipitor) 10 mg PO DIN [facility] Last Admin: 07/24/18 17:42 Dose: 10 mg Famotidine (Pepcid) 20 mg PO HS [facility] Last Admin: 07/23/18 21:19 Dose: 20 mg Furosemide (Lasix) 40 mg PO 0800,1400 [facility] Last Admin: 07/24/18 17:42 Dose: 40 mg Sodium Chloride (Sodium Chloride 0.9%) 1,000 mls @ 80 mls/hr IV .[id number] [facility] Last Admin: 07/24/18 17:42 Dose: Not Given Meropenem (Merrem Iv 1 Gm Premix) 1 gm in 50 mls @ 12.5 mls/hr IVPB Q12 [facility]; Protocol Stop: 07/30/18 11:01 Last Admin: 07/24/18 10:10 Dose: 12.5 mls/hr Levothyroxine Sodium (Synthroid) 100 mcg PO DAILY [facility] Last Admin: 07/24/18 10:12 Dose: 100 mcg Metoprolol Tartrate (Lopressor) 25 mg PO DAILY [facility] Last Admin: 07/24/18 10:11 Dose: 25 mg Morphine Sulfate (Morphine) 2 mg IVP Q4H PRN PRN Reason: Pain, moderate (4-7) Last Admin: 07/24/18 17:42 Dose: 2 mg Spironolactone (Aldactone) 50 mg PO DAILY [facility] Last Admin: 07/24/18 10:11 Dose: 50 mg - Labs Labs: 07/24/18 07:20 07/22/18 19:28 PT 12.2 SECONDS (9.4-12.5) 07/22/18 18:32 INR 1.10 07/22/18 18:32 APTT 34.7 Seconds (26.9-38.3) 07/22/18 18:32 Assessment and Plan - Assessment and Plan (Free Text) Plan: Pt seen and examined by me. I have reviewed the note of the medical insurance verifier and I agree with it. I have discussed the assessment and plan with the resident. I have reviewed the medications and the last labs.
[2018-07-24] MEDS: Sodium Chloride 0.9% 1,000 ML IV SCH (17:42)
--- NOTE | 2018-07-24 21:50 | PN ---
DATE: 07/24/2018 The patient was seen and examined. I do agree with the note of the outside medical sales representative. I was involved in the plan of care. The patient has acute diverticulitis. She is currently being treated with IV antibiotics. I did review her medications. She is having delirium. She continues to have delirium, but she is better than when she first came into the hospital. She was significantly volume depleted. She was placed on IV fluids. The patient continues to complain of dry mouth. She was advised to increase her p.o. intake of fluids. She has a stage III pressure ulcer that is being locally treated. The patient has COPD and is on DuoNeb treatments along with O2. She has a pacemaker that is stable. She is on levothyroxine for her hypothyroidism. She is on morphine for her abdominal pain. She is on Xanax for her anxiety. She is being followed by GI. She is on IV fluids. She is on a liquid diet. She is DNR/DNI. Gregory Estrada MD
[2018-07-25 08:05] LABS: HEMOGLOBIN 13.7 g/dL (12.0-16.0); MEAN CELL VOLUME 95.8 fl (80.0-105.0); MEAN CORPUSCULAR HEMOGLOBIN 30.2 pg (25.0-35.0); MEAN CORPUSCULAR HGB CONC 31.6 g/dl (31.0-37.0); MEAN PLATELET VOLUME 10.6 fl (7.0-11.0); RBC 4.53 10^6/uL (3.5-6.1); RED CELL DISTRIBUTION WIDTH 14.3 % (11.5-14.5); WHITE BLOOD COUNT 8.9 10^3/uL (4.5-11.0)
[2018-07-25] MEDS: Levothyroxine 100 MCG TAB PO SCH (09:03)
[2018-07-25] MEDS: Meropenem IV 1 gm in NS 1 GM/50 ML BAG IVPB SCH ×2 (09:04→22:42)
[2018-07-25] MEDS: POLYETHYLENE GLYCOL 3350 17 GM/Dose PACKET PO SCH ×2 (09:04→17:46)
[2018-07-25] MEDS: Morphine 2 mg/ml ISec IVP PRN ×3 (09:04→22:48)
--- NOTE | 2018-07-25 10:03 | PN ---
DATE: 07/25/2018 SUBJECTIVE: The patient has no complaints of any chest pain. She says she is thirsty. She says she feels week. PHYSICAL EXAMINATION: VITAL SIGNS: Temperature 98, pulse of 69, blood pressure 106/66 and respirations 18. GENERAL: The patient is lying in bed, flat, comfortable. HEENT: No oral lesion. Anicteric sclerae. Moist mucosa. NECK: No JVD, adenopathy, or thyromegaly. CARDIOVASCULAR: S1 and S2, regular. No murmurs, rubs, or gallops. LUNGS: Clear to auscultation bilaterally. No wheeze, rales, or rhonchi. ABDOMEN: Bowel sounds are positive, soft, nontender and nondistended. EXTREMITIES: No cyanosis, clubbing or edema. LABORATORY DATA: Creatinine is 1.5. ASSESSMENT: 1. Acute diverticulitis, improving. 2. Delirium. 3. Stage II pressure ulcer. 4. Chronic obstructive pulmonary disease, stable. 5. Congestive heart failure secondary to diastolic dysfunction. 6. Pacemaker. 7. Hypothyroidism. 8. Dyslipidemia. 9. Urinary tract infection secondary to Gram-negative rods. 10. DO NOT RESUSCITATE/DO NOT INTUBATE. PLAN: The patient had UTI with a Gram-negative rods. The patient is on Aldactone. She is going to continue on aspirin. The patient is on Lipitor for dyslipidemia. She is on morphine for pain as needed. She is on Synthroid for hypothyroidism. She is on IV fluids with normal saline. She is on liquid diet. The patient is being followed by Dr. Wild. Gregory Estrada MD
[2018-07-25] MEDS: Sodium Chloride 0.9% 1,000 ML IV SCH (17:47)
--- NOTE | 2018-07-25 22:44 | PN ---
DATE: 07/25/2018 SUBJECTIVE: The patient is in bed, in no acute distress, nontoxic. No fevers. Was seen earlier today. PHYSICAL EXAMINATION: VITAL SIGNS: Temperature is 98, blood pressure is 120/70, respiratory rate is 18, heart rate is 87. HEENT: Unremarkable. NECK: Supple. LUNGS: Decreased breath sounds. HEART: Normal S1 and S2. ABDOMEN: Soft, nontender. LABORATORY EXAMINATION: Reveals a white count of 8.9, hemoglobin of 13, platelets of 277. BUN of 61, creatinine of 1.5. Urinalysis is noted. Microbiology reveals E. Coli in the urine cultures. The blood cultures are negative. The E. Coli is sensitive to cefazolin, resistant to Cipro. Review of orders reveals the patient to be on meropenem. THE PATIENT IS ALLERGIC TO CEFTRIAXONE AND LEVAQUIN. The E. Coli is sensitive to Bactrim. ASSESSMENT AND PLAN: A 78-year-old female with a history of hyperlipidemia; hypertension; hypothyroidism; heart failure, preserved ejection fraction; coronary artery disease, status post cardiac pacemaker; chronic obstructive lung disease and chronic respiratory failure, on home O2 oxygen; anxiety disorder; presented with abdominal pain and constipation and was found to have sepsis secondary to diverticulitis . The patient with Escherichia coli urinary tract infection; coronary artery disease; chronic obstructive lung disease, on home O2 therapy; congestive heart failure with preserved ejection fraction; hypothyroidism; hyperlipidemia; anxiety; depression; on day #3 of meropenem. The patient appears to be improving. Dr. Estrada's note is reviewed. Elevated creatinine of 1.5. Limited options as far as p.o. antibiotics is concerned, and LEVAQUIN AND CEFTRIAXONE ARE ALLERGIES. CAT scan of the abdomen does show diverticulosis with minimal pericolonic fat infiltration compatible with diverticulitis. We will follow with you. Macho Mark MD
[2018-07-26] MEDS: Sodium Chloride 0.9% 1,000 ML IV SCH ×2 (04:57→04:58)
[2018-07-26] MEDS: Morphine 2 mg/ml ISec IVP PRN (05:15)
[2018-07-26] MEDS: Levothyroxine 100 MCG TAB PO SCH (09:04)
[2018-07-26] MEDS: POLYETHYLENE GLYCOL 3350 17 GM/Dose PACKET PO SCH ×2 (09:05→17:29)
[2018-07-26] MEDS: Meropenem IV 1 gm in NS 1 GM/50 ML BAG IVPB SCH ×2 (09:05→21:55)
--- NOTE | 2018-07-26 14:40 | PN ---
DATE: 07/26/2018 SUBJECTIVE: The patient is in bed, in no acute distress, nontoxic. PHYSICAL EXAMINATION: VITAL SIGNS: Temperature is 98, blood pressure is 120/70, respiratory rate of 18. HEENT: Unremarkable. NECK: Supple. LUNGS: Decreased breath sounds. HEART: Normal S1 and S2. ABDOMEN: Soft. LABORATORY DATA: White count of 8.9, hemoglobin of 13, platelets of 277. BUN of 61, creatinine of 1.5. Urinalysis is noted. Microbiology is noted. ASSESSMENT AND PLAN: A 78-year-old female with a history of hyperlipidemia, hypertension, hypothyroidism, heart failure, preserved ejection fraction, coronary artery disease, status post cardiac pacemaker, and the patient with chronic obstructive lung disease; chronic respiratory failure, on home, anxiety who is admitted with abdominal pain and constipation and was found to have sepsis secondary to diverticulitis with Escherichia coli in the urine as the source also and currently on day #4 of meropenem. THE PATIENT IS ALLERGIC TO LEVAQUIN AND CEFTRIAXONE. The patient with renal insufficiency with a creatinine of 1.5, limited options. Today is day #4 of meropenem, would complete 7 to 10 days. Macho Mark MD
[2018-07-27] MEDS: Morphine 2 mg/ml ISec IVP PRN ×4 (00:13→21:17)
--- NOTE | 2018-07-27 09:16 | PN ---
DATE: 07/26/2018 SUBJECTIVE: The patient has no complaints of any chest pain. No shortness of breath. She said she has not had a bowel movement in the last few days. PHYSICAL EXAMINATION: VITAL SIGNS: Temperature is 98.2, pulse of 82, blood pressure 124/78, respirations 18. GENERAL: The patient is lying in bed, flat, comfortable. HEENT: No oral lesion. Anicteric sclerae. Moist mucosa. NECK: No JVD, adenopathy, or thyromegaly. CARDIOVASCULAR: S1 and S2. Regular. No murmurs, rubs, or gallops. LUNGS: Clear to auscultation bilaterally. No wheeze, rales, or rhonchi. ABDOMEN: Bowel sounds are positive, soft, nontender and nondistended. EXTREMITIES: No cyanosis, clubbing or edema. LABORATORY DATA: White count is 8.9, hemoglobin 13.7. Creatinine is 1.5. ASSESSMENT: 1. Acute diverticulitis. 2. Delirium, improving. 3. Stage II pressure ulcer. 4. Constipation. 5. Urinary tract infection secondary to Escherichia coli. 6. Chronic obstructive pulmonary disease, stable. 7. Congestive heart failure secondary to diastolic dysfunction, stable. 8. Pacemaker. 9. Hypothyroidism. 10. Dyslipidemia. 11. Do Not Resuscitate/Do Not Intubate. PLAN: The patient has UTI secondary to Escherichia coli. She is currently receiving meropenem for antibiotics. SHE HAS A ROCEPHIN AND LEVOFLOXACIN ALLERGY. The patient is sensitive to the meropenem. She is being followed by Infectious Disease. The patient is on Lipitor for dyslipidemia. She is on aspirin daily. The patient is on Pepcid daily. She is on IV fluids, I will discontinue the IV fluids at this point. She is going to need physical therapy. The patient was seen by Physical Therapy and it was advised that she goes to a subacute rehab. The patient has refused in the past to go to a subacute rehab. I will give the patient lactulose to help with her bowel movement. Gregory Estrada MD
[2018-07-27] MEDS: Meropenem IV 1 gm in NS 1 GM/50 ML BAG IVPB SCH ×2 (10:27→21:10)
[2018-07-27] MEDS: Levothyroxine 100 MCG TAB PO SCH (10:27)
[2018-07-27] MEDS: POLYETHYLENE GLYCOL 3350 17 GM/Dose PACKET PO SCH ×2 (10:27→17:27)
--- NOTE | 2018-07-27 11:27 | CP.PCM.PCO ---
Physician Communication Note - Physician Communication Note Physician Communication Note: due to high volume of consults, pt will be seen tomorrow
--- NOTE | 2018-07-27 12:06 | CP.PCM.PN ---
<Milton Marquis - Last Filed: 07/27/18 14:20> Subjective - Date & Time of Evaluation Date of Evaluation: 07/27/18 Time of Evaluation: 07:10 - Subjective Subjective: Patient seen and examined at bedside. Patient with no acute events overnight. Patient with likely delirium. ROS unobtainable due to patient mental status. Objective - Vital Signs/Intake and Output Vital Signs (last 24 hours): Temp Pulse Resp BP Pulse Ox 98.2 F 82 20 147/85 97 07/27/18 08:23 07/27/18 08:23 07/27/18 08:23 07/27/18 08:29 07/27/18 08:23 Intake and Output: 07/27/18 07/27/18 06:59 18:59 Intake Total 360 Balance 360 - Medications Medications: Current Medications Albuterol/Ipratropium (Duoneb 3 Mg/0.5 Mg (3 Ml) Ud) 3 ml IH O1TSAEL PRN PRN Reason: Shortness of Breath Alprazolam (Xanax) 0.25 mg PO TID PRN; Protocol PRN Reason: Anxiety Stop: 07/30/18 13:47 Last Admin: 07/27/18 10:26 Dose: 0.25 mg Aspirin (Ecotrin) 81 mg PO DAILY [facility] Last Admin: 07/27/18 10:28 Dose: 81 mg Atorvastatin Calcium (Lipitor) 10 mg PO DIN [facility] Last Admin: 07/26/18 17:29 Dose: 10 mg Famotidine (Pepcid) 20 mg PO HS [facility] Last Admin: 07/26/18 21:55 Dose: 20 mg Furosemide (Lasix) 40 mg PO 0800,1400 [facility] Last Admin: 07/27/18 08:29 Dose: 40 mg Meropenem (Merrem Iv 1 Gm Premix) 1 gm in 50 mls @ 12.5 mls/hr IVPB Q12 [facility]; Protocol Stop: 07/30/18 11:01 Last Admin: 07/27/18 10:27 Dose: 12.5 mls/hr Levothyroxine Sodium (Synthroid) 100 mcg PO DAILY [facility] Last Admin: 07/27/18 10:27 Dose: 100 mcg Metoprolol Tartrate (Lopressor) 25 mg PO DAILY [facility] Last Admin: 07/27/18 10:28 Dose: 25 mg Morphine Sulfate (Morphine) 2 mg IVP Q4H PRN PRN Reason: Pain, moderate (4-7) Last Admin: 07/27/18 06:27 Dose: 2 mg Polyethylene Glycol (Miralax) 17 gm PO BID [facility] Last Admin: 07/27/18 10:27 Dose: Not Given Spironolactone (Aldactone) 50 mg PO DAILY [facility] Last Admin: 07/27/18 10:26 Dose: 50 mg - Labs Labs: 07/25/18 07:20 07/22/18 19:28 PT 12.2 SECONDS (9.4-12.5) 07/22/18 18:32 INR 1.10 07/22/18 18:32 APTT 34.7 Seconds (26.9-38.3) 07/22/18 18:32 - Constitutional Appears: Non-toxic, No Acute Distress - Head Exam Head Exam: ATRAUMATIC, NORMAL INSPECTION, NORMOCEPHALIC - ENT Exam ENT Exam: Mucous Membranes Moist - Respiratory Exam Respiratory Exam: Clear to Ausculation Bilateral, NORMAL BREATHING PATTERN. absent: Decreased Breath Sounds, Rales, Rhonchi, Wheezes - Cardiovascular Exam Cardiovascular Exam: RRR, +S1, +S2. absent: Irregular Rhythm, Murmur - GI/Abdominal Exam GI & Abdominal Exam: Soft, Normal Bowel Sounds. absent: Guarding, Tenderness, Rebound - Extremities Exam Extremities Exam: Normal Inspection. absent: Pedal Edema, Tenderness - Neurological Exam Neurological Exam: Alert, Awake, CN II-XII Intact. absent: Oriented x3 (Oriented to person) - Psychiatric Exam Psychiatric exam: Normal Affect, Normal Mood - Skin Skin Exam: Dry, Intact, Normal Color, Warm Assessment and Plan - Assessment and Plan (Free Text) Plan: Acute diverticulitis Delirium Stage 2 sacral pressure wound Chronic respiratory failure COPD on home O2 Diastolic CHF Pacemaker Hypothyroidism HLD Patient will continue on Merrem for acute diverticulitis day 5/7. Patient will be started on heart healthy diet. Patient with E. coli in urine. Patient will continue on O2 and duonebs as needed for COPD. Patient will continue on ASA, lipitor, Aldactone, Lopressor, and Lasix for CHF. Patient will continue on Levothyroxine for hypothyroidism and Morphine for pain. Patient will have Xanax for anxiety. Physical therapy recommend [facility]. Patient is currently pending placement. <Gregory Estrada S - Last Filed: 07/27/18 17:51> Objective - Vital Signs/Intake and Output Vital Signs (last 24 hours): Temp Pulse Resp BP Pulse Ox 97.8 F 68 20 128/87 99 07/27/18 14:00 07/27/18 14:00 07/27/18 14:00 07/27/18 14:07 07/27/18 14:00 Intake and Output: 07/27/18 07/27/18 06:59 18:59 Intake Total 360 Balance 360 - Medications Medications: Current Medications Albuterol/Ipratropium (Duoneb 3 Mg/0.5 Mg (3 Ml) Ud) 3 ml IH [id number] PRN PRN Reason: Shortness of Breath Alprazolam (Xanax) 0.25 mg PO TID PRN; Protocol PRN Reason: Anxiety Stop: 07/30/18 13:47 Last Admin: 07/27/18 10:26 Dose: 0.25 mg Aspirin (Ecotrin) 81 mg PO DAILY [facility] Last Admin: 07/27/18 10:28 Dose: 81 mg Atorvastatin Calcium (Lipitor) 10 mg PO DIN [facility] Last Admin: 07/27/18 17:27 Dose: 10 mg Famotidine (Pepcid) 20 mg PO HS [facility] Last Admin: 07/26/18 21:55 Dose: 20 mg Furosemide (Lasix) 40 mg PO 0800,1400 [facility] Last Admin: 07/27/18 14:07 Dose: 40 mg Meropenem (Merrem Iv 1 Gm Premix) 1 gm in 50 mls @ 12.5 mls/hr IVPB Q12 [facility]; Protocol Stop: 07/30/18 11:01 Last Admin: 07/27/18 10:27 Dose: 12.5 mls/hr Levothyroxine Sodium (Synthroid) 100 mcg PO DAILY [facility] Last Admin: 07/27/18 10:27 Dose: 100 mcg Metoprolol Tartrate (Lopressor) 25 mg PO DAILY [facility] Last Admin: 07/27/18 10:28 Dose: 25 mg Morphine Sulfate (Morphine) 2 mg IVP Q4H PRN PRN Reason: Pain, moderate (4-7) Last Admin: 07/27/18 16:50 Dose: 2 mg Polyethylene Glycol (Miralax) 17 gm PO BID [facility] Last Admin: 07/27/18 17:27 Dose: 17 gm Spironolactone (Aldactone) 50 mg PO DAILY [facility] Last Admin: 07/27/18 10:26 Dose: 50 mg - Labs Labs: 07/25/18 07:20 07/22/18 19:28 PT 12.2 SECONDS (9.4-12.5) 07/22/18 18:32 INR 1.10 07/22/18 18:32 APTT 34.7 Seconds (26.9-38.3) 07/22/18 18:32 Assessment and Plan - Assessment and Plan (Free Text) Plan: Pt seen and examined by me. I have reviewed the note of the registered medical assistant and I agree with it. I have discussed the assessment and plan with the resident. I have reviewed the medications and the last labs.
--- NOTE | 2018-07-27 22:41 | PN ---
DATE: 07/27/2018 The patient was seen and examined. I do agree with the note of the medical microbiologist. I was involved in the plan of care. The patient is currently comfortable. She had delirium that has improved. She had acute diverticulitis, and she is on antibiotics with meropenem. She has E. coli UTI that is also being treated. The patient is on aspirin daily. She is going to continue Xanax for her anxiety. The patient is on levothyroxine for her hypothyroidism. She is on morphine for pain. She is agreeable to go to subacute rehab. She does have chronic back pain because of her vertebral fracture. She is having difficulty with ambulating since her fracture. She initially had gone home last admission but was advised subacute rehab. She was given lactulose for constipation. She is on Lipitor for dyslipidemia. She is on Pepcid. She is receiving Xanax for her anxiety. Gregory Estrada MD
[2018-07-28] MEDS: Morphine 2 mg/ml ISec IVP PRN ×2 (01:26→11:01)
--- NOTE | 2018-07-28 02:38 | PN ---
DATE: 07/27/2018 SUBJECTIVE: The patient is seen in bed, in no acute distress, nontoxic. PHYSICAL EXAMINATION: VITAL SIGNS: Temperature is 98, blood pressure is 120/70, respiratory rate of 20, heart rate of 60. HEENT: Unremarkable. NECK: Supple. LUNGS: Have decreased breath sounds. HEART: Normal S1 and S2. ABDOMEN: Soft. LABORATORY DATA: Laboratory examination reveals a white count of 10,000, hemoglobin of 13. Chemistries reveal a BUN of 61, creatinine of 1.5. ASSESSMENT AND PLAN: This is a 78-year-old female with a history of hyperlipidemia, hypertension, hypothyroidism, heart failure, preserved ejection fraction, coronary artery disease, status post cardiac pacemaker, chronic obstructive lung disease, chronic respiratory failure, on home oxygen therapy, admitted with abdominal pain, constipation, found to have sepsis secondary to diverticulitis with Escherichia coli in the urine in a patient who is currently on meropenem day #5, would complete 7 to 10 days of antibiotics. The patient is allergic to Levaquin and ceftriaxone, with renal insufficiency. Should repeat labs. The patient was seen early this morning. Overall prognosis is poor. Macho Mark MD
[2018-07-28] MEDS: POLYETHYLENE GLYCOL 3350 17 GM/Dose PACKET PO SCH ×2 (10:58→17:34)
[2018-07-28] MEDS: Meropenem IV 1 gm in NS 1 GM/50 ML BAG IVPB SCH ×2 (10:58→23:40)
[2018-07-28] MEDS: Levothyroxine 100 MCG TAB PO SCH (10:59)
[2018-07-28] MEDS: Sodium Chloride 0.9% 1,000 ML IV SCH ×2 (11:36→23:41)
--- NOTE | 2018-07-28 14:11 | CP.PCM.DIS ---
Provider - Provider Date of Admission: 07/22/18 21:43 Attending physician: Gregory Estrada MD Consults: 07/23/18 01:08 Social Work Referral Routine Comment: Beatriz score Physician Instructions: Reason For Exam: Beatriz risk 11 07/23/18 01:14 Nursing Referral for Wound Care Routine Comment: Physician Instructions: Reason For Exam: 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, stage 2 left glueal 07/23/18 07:47 Infectious Disease Consult Routine Comment: Consulting Provider: Fausto Wild Consulting Physician: Fausto Wild Reason for Consult: Diverticulitis; Levofloxacin/Ceftriaxone allergy 07/23/18 09:33 TCU [Evaluation for TRCU] Routine Comment: Physician Instructions: Reason For Exam: deconditioning 07/27/18 09:39 Psychiatry Consult Routine Comment: Consulting Provider: Cordelia Gates Consulting Physician: Cordelia Gates Reason for Consult: Delirium Time Spent in preparation of Discharge (in minutes): 45 Diagnosis - Discharge Diagnosis (1) COPD (chronic obstructive pulmonary disease) Status: Chronic (2) CHF (congestive heart failure) Status: Chronic (3) Delirium Status: Acute (4) Diverticulitis Status: Resolved (5) HLD (hyperlipidemia) Status: Chronic (6) History of hypertension Status: Chronic Priority: Medium Hospital Course - Lab Results Lab Results: Micro Results 07/22/18 21:20 Blood Blood Culture - Final NO GROWTH AFTER 5 DAYS 07/22/18 21:20 Blood Gram Stain - Final TEST NOT PERFORMED 07/22/18 21:50 Blood Blood Culture - Final NO GROWTH AFTER 5 DAYS 07/22/18 21:50 Blood Gram Stain - Final TEST NOT PERFORMED 07/22/18 20:30 Urine,Catheterized Urine Culture - Final Escherichia Coli Most Recent Lab Values WBC 8.9 10^3/uL (4.5-11.0) 07/25/18 07:20 RBC 4.53 10^6/uL (3.5-6.1) 07/25/18 07:20 Hgb 13.7 g/dL (12.0-16.0) 07/25/18 07:20 Hct 43.4 % (36.0-48.0) 07/25/18 07:20 MCV 95.8 fl (80.0-105.0) 07/25/18 07:20 MCH 30.2 pg (25.0-35.0) 07/25/18 07:20 MCHC 31.6 g/dl (31.0-37.0) 07/25/18 07:20 RDW 14.3 % (11.5-14.5) 07/25/18 07:20 Plt Count 277 10^3/uL (120.0-450.0) 07/25/18 07:20 MPV 10.6 fl (7.0-11.0) 07/25/18 07:20 Neut % (Auto) 76.3 % (50.0-68.0) H 07/22/18 18:32 Lymph % (Auto) 10.7 % (22.0-35.0) L 07/22/18 18:32 [place] % (Auto) 12.4 % (1.0-6.0) H 07/22/18 18:32 Eos % (Auto) 0.5 % (1.5-5.0) L 07/22/18 18:32 Baso % (Auto) 0.1 % (0.0-3.0) 07/22/18 18:32 Lymph # (Auto) 1.5 (1.2-3.4) 07/22/18 18:32 [place] # (Auto) 1.7 (0.1-0.6) H 07/22/18 18:32 Eos # (Auto) 0.1 (0.0-0.7) 07/22/18 18:32 Baso # (Auto) 0.01 K/mm3 (0.0-2.0) 07/22/18 18:32 Absolute Neuts (auto) 10.74 (1.4-6.5) H 07/22/18 18:32 PT 12.2 SECONDS (9.4-12.5) 07/22/18 18:32 INR 1.10 07/22/18 18:32 APTT 34.7 Seconds (26.9-38.3) 07/22/18 18:32 pO2 129 mm/Hg (30-55) H 07/22/18 18:32 VBG pH 7.35 (7.32-7.43) 07/22/18 18:32 VBG pCO2 39.0 (40-60) L 07/22/18 18:32 VBG HCO3 21.5 mmol/l (21-28) 07/22/18 18:32 VBG Total CO2 22.7 mmol.L (22-28) 07/22/18 18:32 VBG O2 Sat (Calc) 100.0 % (40-65) H 07/22/18 18:32 VBG Base Excess -3.8 mmol/L (0.0-2.0) L 07/22/18 18:32 VBG Potassium 12.2 mmol/L (3.6-5.2) H* 07/22/18 18:32 Sodium 127.0 mmol/L (132-148) L 07/22/18 18:32 Chloride 98.0 mmol/L (98-107) 07/22/18 18:32 Glucose 119 mg/dl (65-105) H 07/22/18 18:32 Lactate 1.4 mmol/L (0.7-2.1) 07/22/18 18:32 FiO2 21.0 % 07/22/18 18:32 Blood Gas Comments Specimen grossly hemolyzed 07/22/18 18:32 Crit Value Called To Miranda agustin 07/22/18 18:32 Crit Value Called By Izabella 07/22/18 18:32 Blood Gas Notified Time 1845 07/22/18 18:32 Sodium 135 mmol/L (132-148) 07/22/18 19:28 Potassium 4.7 mmol/L (3.6-5.0) 07/22/18 19:28 Chloride 98 mmol/L (98-107) 07/22/18 19:28 Carbon Dioxide 23 mmol/L (21-33) 07/22/18 19:28 Anion Gap 19 (10-20) 07/22/18 19:28 BUN 61 mg/dL (7-21) H 07/22/18 19:28 Creatinine 1.5 mg/dl (0.7-1.2) H 07/22/18 19:28 Est GFR ( Amer) 41 07/22/18 19:28 Est GFR (Non-Af Amer) 34 07/22/18 19:28 Random Glucose 117 mg/dL (70-110) H 07/22/18 19:28 Calcium 11.0 mg/dL (8.4-10.5) H 07/22/18 19:28 Phosphorus 3.9 mg/dL (2.5-4.5) 07/22/18 19:28 Magnesium 2.6 mg/dL (1.7-2.2) H 07/22/18 19:28 Total Bilirubin 0.7 mg/dL (0.2-1.3) 07/22/18 19:28 AST 45 U/L (14-36) H D 07/22/18 19:28 ALT 22 U/L (7-56) 07/22/18 19:28 Alkaline Phosphatase 128 U/L (38-126) H D 07/22/18 19:28 Total Protein 8.1 g/dL (5.8-8.3) 07/22/18 19:28 Albumin 4.2 g/dL (3.0-4.8) 07/22/18 19:28 Globulin 3.9 gm/dL 07/22/18 19:28 Albumin/Globulin Ratio 1.1 (1.1-1.8) 07/22/18 19:28 Lipase 190 U/L (23-300) 07/22/18 19:28 Venous Blood Potassium 12.2 mmol/L (3.6-5.2) H* 07/22/18 18:32 Urine Color Yellow (YELLOW) 07/22/18 20:30 Urine Appearance Sl cloudy (CLEAR) 07/22/18 20:30 Urine pH 5.5 (4.7-8.0) 07/22/18 20:30 Ur Specific Moro 1.020 (1.005-1.035) 07/22/18 20:30 Urine Protein Trace mg/dL (<30 mg/dL) H 07/22/18 20:30 Urine Glucose (UA) Negative mg/dL (NEGATIVE) 07/22/18 20:30 Urine Ketones Negative mg/dL (NEGATIVE) 07/22/18 20:30 Urine Blood Small (NEGATIVE) H 07/22/18 20:30 Urine Nitrate Negative (NEGATIVE) 07/22/18 20:30 Urine Bilirubin Small (NEGATIVE) H 07/22/18 20:30 Urine Urobilinogen 0.2 E.U./dL (<1 E.U./dL) 07/22/18 20:30 Ur Leukocyte Esterase Moderate Monica/uL (NEGATIVE) H 07/22/18 20:30 Urine RBC 10 - 15 /hpf (0-2) H 07/22/18 20:30 Urine WBC Tntc /hpf (0-6) H 07/22/18 20:30 Ur Epithelial Cells 10 - 12 /hpf (0-5) H 07/22/18 20:30 Urine Bacteria Many /hpf (NONE) 07/22/18 20:30 - Hospital Course Hospital Course: 78 year old female with medical history of CAD, Pacemaker, COPD on home O2, rodriguez tolic CHF, hypothyroidism, HLD, pancreatitis, anxiety disorder and depression presents to the hospital for worsening abdominal pain for [address] abdomen/pelvis performed which demonstrated acute diverticulitis. Patient was evaluated by ID who placed on patient on Merrem. Patient was evaluated by psychiatry who recommended seroquel prn at night. Patient had poor appetite, patient will have Megace added and IVF. Patient will finish 1 more day of Merrem at [facility]. Discharge Exam - Head Exam Head Exam: ATRAUMATIC, NORMAL INSPECTION, NORMOCEPHALIC - ENT Exam ENT Exam: Mucous Membranes Moist - Respiratory Exam Respiratory Exam: Clear to PA & Lateral, NORMAL BREATHING PATTERN, UNREMARKABLE. absent: Rales, Rhonchi, Wheezes - Cardiovascular Exam Cardiovascular Exam: RRR, +S1, +S2. absent: Irregular Rhythm, Systolic Murmur - GI/Abdominal Exam GI & Abdominal Exam: Normal Bowel Sounds, Soft, Unremarkable. absent: Tenderness - Extremities Exam Extremities exam: normal inspection - Neurological Exam Neurological exam: Alert Additional comments: Oriented to person - Psychiatric Exam Psychiatric exam: Agitated, Normal Affect - Skin Skin Exam: Dry, Intact, Normal Color, Warm Discharge Plan - Discharge Medications Prescriptions: Megestrol Acetate [Megace] 40 mg PO DAILY 30 Days cup Meropenem [Merrem] 1 gm IV Q12 1 Days #2 vial QUEtiapine [SEROquel] 12.5 mg PO HS PRN 30 Days tab PRN Reason: Agitation - Follow Up Plan Condition: FAIR Disposition: HOME/ ROUTINE Instructions: Diverticulitis (DC), Pressure Sores (DC), How to Prevent Pressure Sores, Exacerbation of COPD (DC)
--- NOTE | 2018-07-28 19:41 | CON ---
DATE OF CONSULTATION: 07/28/2018 HISTORY OF PRESENT ILLNESS: In short, the patient is a 78-year-old female with past history of multiple medical issues including coronary artery disease, COPD, chronic lung disease and O2 dependence. The patient has also history of anxiety and depression. The patient had back surgery and kyphoplasty in 04/2018. This global technical writer is very familiar with this patient from the medical side consultation services. The patient is admitted this time for evaluation of not eating, dehydration. The patient was found to have urinary tract infection as well as diverticulitis. The patient was seen and examined today. The patient presented to be lethargic. The patient's daughter, Lion, is next to the patient. The patient gave permission to talk to the daughter. As per the patient's daughter, the patient was not doing well recently. The patient was feeling more depressed. The patient refused to eat and family was concerned about dehydration and altered mental status, that is why the patient was brought for evaluation. As per daughter, while the patient was in subacute rehab she had confusion and altered mental status, which was notable for the patient. As per daughter, today, the patient presented much better to compare with the time of admission. The patient herself denied any thoughts of harming herself or others, has periods of confusion. PHYSICAL EXAMINATION: VITAL SIGNS: Reviewed. Temperature 97.7, pulse 63, blood pressure 122/80, respirations 20, and oxygen saturation is 100. MEDICATIONS: Reviewed. The patient is on DuoNeb, Xanax 0.25 mg three times a day as needed for anxiety, aspirin, Lipitor, Pepcid, Lasix, Synthroid, Megace, meropenem, Lopressor, morphine, MiraLax, Seroquel will be suggested 12.5 mg at the nighttime for confusion and agitation, sodium chloride, and Aldactone. LABORATORY DATA: Labs reviewed. White blood cells were elevated on . Chemistry reviewed. Urinalysis reviewed. Leukocyte esterase moderate and protein trace. MENTAL STATUS EXAMINATION: The patient presented to be sleepy, easily arousable. The patient was not able to sustain conversation. The patient was falling asleep during the interview. Mood described as okay. Affect was constricted. Thought process coherent. Thought content, the patient denied any psychotic symptoms. Denied thoughts of harming herself or others. Denied intent or plan. Insight and judgment seemed to be improving. Impulses are well controlled. IMPRESSION: Most likely, the patient is in delirium stage. The patient has history of depression and anxiety. PLAN: Continue current management. Continue current medications. Seroquel was initiated as needed for confusion as well as psychosis. This global technical writer suggested that the patient will be transferred to subacute rehab. The patient needs to be seen by psychiatrist within 48 hours. Discussed with nurse practitioner, Rody. Should you have any questions give me a call back. Thank you very much for letting me participate in care of your patient. Cordelia Gates MD
--- NOTE | 2018-07-29 00:07 | PN ---
DATE: 07/28/2018 SUBJECTIVE: The patient is in bed, in no acute distress, nontoxic. The patient was seen early this morning in room 572, bed 1. PHYSICAL EXAMINATION: VITAL SIGNS: Temperature 98, blood pressure is 120/80, respiratory rate of 18. HEENT: Unremarkable. NECK: Supple. LUNGS: Have decreased breath sounds. HEART: Normal S1, S2. ABDOMEN: Soft, nontender. LABORATORY DATA: Reveals a white count of 8.9, hemoglobin of 13, BUN of 61, creatinine of 1.5. Urinalysis is noted. Microbiology reveals the urine is positive for E. coli that is sensitive to cefazolin, Aciphex, cefepime, ceftriaxone; resistant to quinolones. However, it is sensitive to Bactrim. Review of orders reveals the patient to be on meropenem. ASSESSMENT AND PLAN: A 78-year-old female who was seen early this morning with history of hyperlipidemia, hypertension, hypothyroidism, heart failure, preserved ejection fraction, coronary artery disease, status post cardiac pacemaker, chronic obstructive lung disease, chronic respiratory failure, on home oxygen therapy, admitted with abdominal pain, constipation, found to have sepsis secondary to diverticulitis, E. coli in the urine, on day #6 of meropenem, would complete 7-10 days, allergy to Levaquin and ceftriaxone, with renal insufficiency, limited options. Macho Mark MD
--- NOTE | 2018-07-29 01:52 | CP.PCM.PN ---
<Milton Richards - Last Filed: 07/29/18 03:14> Subjective - Date & Time of Evaluation Date of Evaluation: 07/29/18 Time of Evaluation: :20 - Subjective Subjective: PGY-1 Night Float Progress Note for Dr. Ding Overnight resident paged due to patient c/o 02/04 stabbing chest pain. Patient seen and evaluated at bedside. Patient retracted having chest pain upon arrival and continued to deny having any chest pain. Patient also described pain in her back. Objective - Vital Signs/Intake and Output Vital Signs (last 24 hours): Temp Pulse Resp BP Pulse Ox 98 F 76 18 119/87 100 07/28/18 22:06 07/28/18 22:06 07/28/18 22:06 07/28/18 22:06 07/28/18 22:06 Intake and Output: 07/28/18 07/29/18 18:59 06:59 Intake Total 120 60 Output Total 300 300 Balance -180 -240 - Medications Medications: Current Medications Albuterol/Ipratropium (Duoneb 3 Mg/0.5 Mg (3 Ml) Ud) 3 ml IH [id number] PRN PRN Reason: Shortness of Breath Alprazolam (Xanax) 0.25 mg PO TID PRN; Protocol PRN Reason: Anxiety Stop: 07/30/18 13:47 Last Admin: 07/27/18 10:26 Dose: 0.25 mg Aspirin (Ecotrin) 81 mg PO DAILY [facility] Last Admin: 07/28/18 10:59 Dose: 81 mg Atorvastatin Calcium (Lipitor) 10 mg PO DIN [facility] Last Admin: 07/28/18 17:34 Dose: 10 mg Famotidine (Pepcid) 20 mg PO HS [facility] Last Admin: 07/28/18 21:33 Dose: 20 mg Furosemide (Lasix) 40 mg PO 0800,1400 [facility] Last Admin: 07/28/18 08:39 Dose: 40 mg Meropenem (Merrem Iv 1 Gm Premix) 1 gm in 50 mls @ 12.5 mls/hr IVPB Q12 [facility]; Protocol Stop: 07/30/18 11:01 Last Admin: 07/28/18 23:40 Dose: Not Given Levothyroxine Sodium (Synthroid) 100 mcg PO DAILY [facility] Last Admin: 07/28/18 10:59 Dose: 100 mcg Megestrol Acetate (Megace) 40 mg PO DAILY [facility] Last Admin: 07/28/18 11:41 Dose: 40 mg Metoprolol Tartrate (Lopressor) 25 mg PO DAILY [facility] Last Admin: 07/28/18 10:59 Dose: 25 mg Morphine Sulfate (Morphine) 2 mg IVP Q4H PRN PRN Reason: Pain, moderate (4-7) Last Admin: 07/28/18 11:01 Dose: 2 mg Polyethylene Glycol (Miralax) 17 gm PO BID [facility] Last Admin: 07/28/18 17:34 Dose: 17 gm Quetiapine Fumarate (Seroquel) 12.5 mg PO HS PRN; Protocol PRN Reason: Agitation Spironolactone (Aldactone) 50 mg PO DAILY [facility] Last Admin: 07/28/18 10:59 Dose: 50 mg - Labs Labs: 07/25/18 07:20 07/22/18 19:28 PT 12.2 SECONDS (9.4-12.5) 07/22/18 18:32 INR 1.10 07/22/18 18:32 APTT 34.7 Seconds (26.9-38.3) 07/22/18 18:32 - Constitutional Appears: Non-toxic, No Acute Distress, Confused - Head Exam Head Exam: ATRAUMATIC, NORMOCEPHALIC - Eye Exam Eye Exam: EOMI, Normal appearance - ENT Exam ENT Exam: Mucous Membranes Moist - Respiratory Exam Respiratory Exam: Clear to Ausculation Bilateral, NORMAL BREATHING PATTERN - Cardiovascular Exam Cardiovascular Exam: REGULAR RHYTHM, +S1, +S2 - GI/Abdominal Exam GI & Abdominal Exam: Soft, Normal Bowel Sounds. absent: Tenderness - Extremities Exam Extremities Exam: Normal Inspection. absent: Pedal Edema, Tenderness - Neurological Exam Neurological Exam: Alert, Awake Additional comments: Awake, alert, and oriented x2. Patient is confused, appears at baseline mental status - Skin Skin Exam: Dry, Intact Assessment and Plan - Assessment and Plan (Free Text) Assessment: Chest Pain, rule out ACS -Patient initially c/o chest pain, then retracted having chest pain. PRN pain medication that patient has on for back pain was given as patient then complained of back pain. -STAT and serial EKG and troponins were taken. EKG then subsequently showed showed new T wave inversions in v1-v3 (these changes are new compared to prior EKG in the chart). EKG was difficult to obtain due to patient moving around. -Nitro sublingual ordered, however patient spit out the tab. -Initial troponin 0.02. Will continue to trend Q6 -Repeat EKG in AM -Patient is already on ASA, metoprolol, and lipitor. -Patient at this time is not complaining of any chest pain. -Will notify PMD of events in the morning. Assessment and plan discussed with Dr. Timur Richards, PGY-1 <Bouchra Ding - Last Filed: 07/29/18 03:20> Objective - Vital Signs/Intake and Output Vital Signs (last 24 hours): Temp Pulse Resp BP Pulse Ox 98 F 76 18 119/87 100 07/28/18 22:06 07/28/18 22:06 07/28/18 22:06 07/28/18 22:06 07/28/18 22:06 Intake and Output: 07/28/18 07/29/18 18:59 06:59 Intake Total 120 60 Output Total 300 300 Balance -180 -240 - Medications Medications: Current Medications Albuterol/Ipratropium (Duoneb 3 Mg/0.5 Mg (3 Ml) Ud) 3 ml IH [id number] PRN PRN Reason: Shortness of Breath Alprazolam (Xanax) 0.25 mg PO TID PRN; Protocol PRN Reason: Anxiety Stop: 07/30/18 13:47 Last Admin: 07/27/18 10:26 Dose: 0.25 mg Aspirin (Ecotrin) 81 mg PO DAILY [facility] Last Admin: 07/28/18 10:59 Dose: 81 mg Atorvastatin Calcium (Lipitor) 10 mg PO DIN [facility] Last Admin: 07/28/18 17:34 Dose: 10 mg Famotidine (Pepcid) 20 mg PO HS [facility] Last Admin: 07/28/18 21:33 Dose: 20 mg Furosemide (Lasix) 40 mg PO 0800,1400 [facility] Last Admin: 07/28/18 08:39 Dose: 40 mg Meropenem (Merrem Iv 1 Gm Premix) 1 gm in 50 mls @ 12.5 mls/hr IVPB Q12 [facility]; Protocol Stop: 07/30/18 11:01 Last Admin: 07/28/18 23:40 Dose: Not Given Levothyroxine Sodium (Synthroid) 100 mcg PO DAILY [facility] Last Admin: 07/28/18 10:59 Dose: 100 mcg Megestrol Acetate (Megace) 40 mg PO DAILY [facility] Last Admin: 07/28/18 11:41 Dose: 40 mg Metoprolol Tartrate (Lopressor) 25 mg PO DAILY [facility] Last Admin: 07/28/18 10:59 Dose: 25 mg Morphine Sulfate (Morphine) 2 mg IVP Q4H PRN PRN Reason: Pain, moderate (4-7) Last Admin: 07/28/18 11:01 Dose: 2 mg Polyethylene Glycol (Miralax) 17 gm PO BID [facility] Last Admin: 07/28/18 17:34 Dose: 17 gm Quetiapine Fumarate (Seroquel) 12.5 mg PO HS PRN; Protocol PRN Reason: Agitation Spironolactone (Aldactone) 50 mg PO DAILY [facility] Last Admin: 07/28/18 10:59 Dose: 50 mg - Labs Labs: 07/25/18 07:20 07/22/18 19:28 PT 12.2 SECONDS (9.4-12.5) 07/22/18 18:32 INR 1.10 07/22/18 18:32 APTT 34.7 Seconds (26.9-38.3) 07/22/18 18:32 Attending/Attestation - Attestation I have personally seen and examined this patient.: Yes I have fully participated in the care of the patient.: Yes Notes (Text): 07/29/18 03:15 Pt seen with the resident by the bedside. Case discussed in detail. Agree with documentation,assessment and orders placed.
--- NOTE | 2018-07-29 02:52 | CP.PCM.PN ---
Subjective - Date & Time of Evaluation Date of Evaluation: 07/29/18 Time of Evaluation: 01:00 - Subjective Subjective: Pt has very poor veins,needs iv inserted Objective - Vital Signs/Intake and Output Vital Signs (last 24 hours): Temp Pulse Resp BP Pulse Ox 98 F 76 18 119/87 100 07/28/18 22:06 07/28/18 22:06 07/28/18 22:06 07/28/18 22:06 07/28/18 22:06 Intake and Output: 07/28/18 07/29/18 18:59 06:59 Intake Total 120 60 Output Total 300 300 Balance -180 -240 - Medications Medications: Current Medications Albuterol/Ipratropium (Duoneb 3 Mg/0.5 Mg (3 Ml) Ud) 3 ml IH [id number] PRN PRN Reason: Shortness of Breath Alprazolam (Xanax) 0.25 mg PO TID PRN; Protocol PRN Reason: Anxiety Stop: 07/30/18 13:47 Last Admin: 07/27/18 10:26 Dose: 0.25 mg Aspirin (Ecotrin) 81 mg PO DAILY [facility] Last Admin: 07/28/18 10:59 Dose: 81 mg Atorvastatin Calcium (Lipitor) 10 mg PO DIN [facility] Last Admin: 07/28/18 17:34 Dose: 10 mg Famotidine (Pepcid) 20 mg PO HS [facility] Last Admin: 07/28/18 21:33 Dose: 20 mg Furosemide (Lasix) 40 mg PO 0800,1400 [facility] Last Admin: 07/28/18 08:39 Dose: 40 mg Meropenem (Merrem Iv 1 Gm Premix) 1 gm in 50 mls @ 12.5 mls/hr IVPB Q12 [facility]; Protocol Stop: 07/30/18 11:01 Last Admin: 07/28/18 23:40 Dose: Not Given Levothyroxine Sodium (Synthroid) 100 mcg PO DAILY [facility] Last Admin: 07/28/18 10:59 Dose: 100 mcg Megestrol Acetate (Megace) 40 mg PO DAILY [facility] Last Admin: 07/28/18 11:41 Dose: 40 mg Metoprolol Tartrate (Lopressor) 25 mg PO DAILY [facility] Last Admin: 07/28/18 10:59 Dose: 25 mg Morphine Sulfate (Morphine) 2 mg IVP Q4H PRN PRN Reason: Pain, moderate (4-7) Last Admin: 07/28/18 11:01 Dose: 2 mg Polyethylene Glycol (Miralax) 17 gm PO BID [facility] Last Admin: 07/28/18 17:34 Dose: 17 gm Quetiapine Fumarate (Seroquel) 12.5 mg PO HS PRN; Protocol PRN Reason: Agitation Spironolactone (Aldactone) 50 mg PO DAILY [facility] Last Admin: 07/28/18 10:59 Dose: 50 mg - Labs Labs: 07/25/18 07:20 07/22/18 19:28 PT 12.2 SECONDS (9.4-12.5) 07/22/18 18:32 INR 1.10 07/22/18 18:32 APTT 34.7 Seconds (26.9-38.3) 07/22/18 18:32 - Constitutional Appears: No Acute Distress Assessment and Plan - Assessment and Plan (Free Text) Assessment: Poor venous access Plan: Hep lock inserted in the L wrist region #24 angiocath used.
[2018-07-29 07:53] VITALS: RESP 20
[2018-07-29 08:00] LABS: HEMOGLOBIN 14.8 g/dL (12.0-16.0); MEAN CELL VOLUME 93.3 fl (80.0-105.0); MEAN CORPUSCULAR HEMOGLOBIN 30.8 pg (25.0-35.0); MEAN PLATELET VOLUME 10.5 fl (7.0-11.0); RBC 4.8 10^6/uL (3.5-6.1); RED CELL DISTRIBUTION WIDTH 13.9 % (11.5-14.5); WHITE BLOOD COUNT 12.5 10^3/uL (4.5-11.0)
[2018-07-29 08:26] LABS: ALB/GLOB RATIO 1.1 (1.1-1.8); ALBUMIN 3.4 g/dL (3.0-4.8); ALT/SGPT 55 U/L (7-56); AST/SGOT 55 U/L (14-36); BLOOD UREA NITROGEN 18 mg/dL (7-21); CALCIUM 9.8 mg/dL (8.4-10.5); GFR NON-AFRICAN AMERICAN > 60
--- NOTE | 2018-07-29 08:35 | PN ---
DATE: 07/28/2018 SUBJECTIVE: The patient was seen and examined. Daughter was at the bedside, trying to feed. The patient's oral intake is very poor. Started on Megace. She was on IV fluid. Currently, she is on meropenem. She is on laxative and a small dose of Megace. Started her on SCDs for DVT prophylaxis. Initially, the patient was planned to be discharged today; however, paperwork did not go through, so she will be discharged in the a.m. Dima Bear MD
[2018-07-29] MEDS: Levothyroxine 100 MCG TAB PO SCH (09:26)
[2018-07-29] MEDS: Morphine 2 mg/ml ISec IVP PRN ×3 (09:27→17:43)
[2018-07-29] MEDS: POLYETHYLENE GLYCOL 3350 17 GM/Dose PACKET PO SCH ×2 (09:27→17:43)
[2018-07-29] MEDS: Meropenem IV 1 gm in NS 1 GM/50 ML BAG IVPB SCH (09:27)
[2018-07-29] MEDS ORDERED: Magnesium Sulfate 2 gm/50 ml 2 GM/50 ML BAG IVPB ONE (12:43)
[2018-07-29] MEDS ORDERED: Potassium Chloride 40 mEq/30 ml LIQ UD PO ONE (12:43)
--- NOTE | 2018-07-29 12:49 | PQF ---
PROVIDER RESPONSE TEXT: Pt with sepsis due to acute diverticulitis and UTI. REVIEWER QUERY TEXT: Rule Out Sepsis Clarification Rule out Sepsis is documented in the Medical Record. Please clarify whether: -- Patient has sepsis - Please document confirmed, suspected or probable causative organism - Please document confirmed, suspected or probable localized infection - Please clarify if sepsis is related to a device - Please clarify if sepsis was present on admission -- Sepsis was ruled out (include corresponding diagnosis for patient?s clinical picture and treatment ) -- Patient had sepsis which is resolved -- Other, please specify The patient's Clinical Indicators include: ID specialty sales consultant noting that patient has sepsis due to diverticulitis and UTI. Medical progress notes without this diagnosis. Please document specifically if you agree and sepsis was POA and/or developed in this patient. Query created by: Glendy Mcdonald on 07/28/2018 10:49 AM Electronically signed by: Gregory Estrada MD 07/29/2018 12:47 PM
--- NOTE | 2018-07-29 13:11 | CP.PCM.DIS ---
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, stage 2 left glueal 07/23/18 07:47 Infectious Disease Consult Routine Comment: Consulting Provider: Fausto Wild Consulting Physician: Fasuto Wild Reason for Consult: Diverticulitis; Levofloxacin/Ceftriaxone allergy 07/23/18 09:33 TCU [Evaluation for TRCU] Routine Comment: Physician Instructions: Reason For Exam: deconditioning 07/27/18 09:39 Psychiatry Consult Routine Comment: Consulting Provider: Cordelia Gates Consulting Physician: Cordelia Gates Reason for Consult: Delirium 07/29/18 09:53 Cardiology Consult Routine Comment: Consulting Provider: Jefferson Solomon Consulting Physician: Jefferson Solomon Reason for Consult: Chest pain Time Spent in preparation of Discharge (in minutes): 45 Diagnosis - Discharge Diagnosis (1) COPD (chronic obstructive pulmonary disease) Status: Chronic (2) CHF (congestive heart failure) Status: Chronic (3) Delirium Status: Acute (4) Diverticulitis Status: Resolved (5) HLD (hyperlipidemia) Status: Chronic (6) History of hypertension Status: Chronic Priority: Medium Hospital Course - Lab Results Lab Results: Micro Results 07/22/18 21:20 Blood Blood Culture - Final NO GROWTH AFTER 5 DAYS 07/22/18 21:20 Blood Gram Stain - Final TEST NOT PERFORMED 07/22/18 21:50 Blood Blood Culture - Final NO GROWTH AFTER 5 DAYS 07/22/18 21:50 Blood Gram Stain - Final TEST NOT PERFORMED 07/22/18 20:30 Urine,Catheterized Urine Culture - Final Escherichia Coli Most Recent Lab Values WBC 12.5 10^3/uL (4.5-11.0) H D 07/29/18 07:30 RBC 4.80 10^6/uL (3.5-6.1) 07/29/18 07:30 Hgb 14.8 g/dL (12.0-16.0) 07/29/18 07:30 Hct 44.8 % (36.0-48.0) 07/29/18 07:30 MCV 93.3 fl (80.0-105.0) 07/29/18 07:30 MCH 30.8 pg (25.0-35.0) 07/29/18 07:30 MCHC 33.0 g/dl (31.0-37.0) 07/29/18 07:30 RDW 13.9 % (11.5-14.5) 07/29/18 07:30 Plt Count 265 10^3/uL (120.0-450.0) 07/29/18 07:30 MPV 10.5 fl (7.0-11.0) 07/29/18 07:30 Neut % (Auto) 76.3 % (50.0-68.0) H 07/22/18 18:32 Lymph % (Auto) 10.7 % (22.0-35.0) L 07/22/18 18:32 [place] % (Auto) 12.4 % (1.0-6.0) H 07/22/18 18:32 Eos % (Auto) 0.5 % (1.5-5.0) L 07/22/18 18:32 Baso % (Auto) 0.1 % (0.0-3.0) 07/22/18 18:32 Lymph # (Auto) 1.5 (1.2-3.4) 07/22/18 18:32 [place] # (Auto) 1.7 (0.1-0.6) H 07/22/18 18:32 Eos # (Auto) 0.1 (0.0-0.7) 07/22/18 18:32 Baso # (Auto) 0.01 K/mm3 (0.0-2.0) 07/22/18 18:32 Absolute Neuts (auto) 10.74 (1.4-6.5) H 07/22/18 18:32 PT 12.2 SECONDS (9.4-12.5) 07/22/18 18:32 INR 1.10 07/22/18 18:32 APTT 34.7 Seconds (26.9-38.3) 07/22/18 18:32 pO2 129 mm/Hg (30-55) H 07/22/18 18:32 VBG pH 7.35 (7.32-7.43) 07/22/18 18:32 VBG pCO2 39.0 (40-60) L 07/22/18 18:32 VBG HCO3 21.5 mmol/l (21-28) 07/22/18 18:32 VBG Total CO2 22.7 mmol.L (22-28) 07/22/18 18:32 VBG O2 Sat (Calc) 100.0 % (40-65) H 07/22/18 18:32 VBG Base Excess -3.8 mmol/L (0.0-2.0) L 07/22/18 18:32 VBG Potassium 12.2 mmol/L (3.6-5.2) H* 07/22/18 18:32 Sodium 127.0 mmol/L (132-148) L 07/22/18 18:32 Chloride 98.0 mmol/L (98-107) 07/22/18 18:32 Glucose 119 mg/dl (65-105) H 07/22/18 18:32 Lactate 1.4 mmol/L (0.7-2.1) 07/22/18 18:32 FiO2 21.0 % 07/22/18 18:32 Blood Gas Comments Specimen grossly hemolyzed 07/22/18 18:32 Crit Value Called To Miranda agustin 07/22/18 18:32 Crit Value Called By Izabella 07/22/18 18:32 Blood Gas Notified Time 1845 07/22/18 18:32 Sodium 140 mmol/L (132-148) 07/29/18 07:30 Potassium 3.1 mmol/L (3.6-5.0) L 07/29/18 07:30 Chloride 101 mmol/L (98-107) 07/29/18 07:30 Carbon Dioxide 32 mmol/L (21-33) 07/29/18 07:30 Anion Gap 11 (10-20) 07/29/18 07:30 BUN 18 mg/dL (7-21) 07/29/18 07:30 Creatinine 0.7 mg/dl (0.7-1.2) 07/29/18 07:30 Est GFR ( Amer) > 60 07/29/18 07:30 Est GFR (Non-Af Amer) > 60 07/29/18 07:30 Random Glucose 108 mg/dL (70-110) 07/29/18 07:30 Calcium 9.8 mg/dL (8.4-10.5) 07/29/18 07:30 Phosphorus 2.4 mg/dL (2.5-4.5) L 07/29/18 07:30 Magnesium 1.5 mg/dL (1.7-2.2) L 07/29/18 07:30 Total Bilirubin 0.6 mg/dL (0.2-1.3) 07/29/18 07:30 AST 55 U/L (14-36) H D 07/29/18 07:30 ALT 55 U/L (7-56) 07/29/18 07:30 Alkaline Phosphatase 109 U/L (38-126) 07/29/18 07:30 Troponin I 0.03 ng/mL D 07/29/18 06:30 Total Protein 6.4 g/dL (5.8-8.3) 07/29/18 07:30 Albumin 3.4 g/dL (3.0-4.8) 07/29/18 07:30 Globulin 3.0 gm/dL 07/29/18 07:30 Albumin/Globulin Ratio 1.1 (1.1-1.8) 07/29/18 07:30 Lipase 190 U/L (23-300) 07/22/18 19:28 Venous Blood Potassium 12.2 mmol/L (3.6-5.2) H* 07/22/18 18:32 Urine Color Yellow (YELLOW) 07/22/18 20:30 Urine Appearance Sl cloudy (CLEAR) 07/22/18 20:30 Urine pH 5.5 (4.7-8.0) 07/22/18 20:30 Ur Specific [place] 1.020 (1.005-1.035) 07/22/18 20:30 Urine Protein Trace mg/dL (<30 mg/dL) H 07/22/18 20:30 Urine Glucose (UA) Negative mg/dL (NEGATIVE) 07/22/18 20:30 Urine Ketones Negative mg/dL (NEGATIVE) 07/22/18 20:30 Urine Blood Small (NEGATIVE) H 07/22/18 20:30 Urine Nitrate Negative (NEGATIVE) 07/22/18 20:30 Urine Bilirubin Small (NEGATIVE) H 07/22/18 20:30 Urine Urobilinogen 0.2 E.U./dL (<1 E.U./dL) 07/22/18 20:30 Ur Leukocyte Esterase Moderate Monica/uL (NEGATIVE) H 07/22/18 20:30 Urine RBC 10 - 15 /hpf (0-2) H 07/22/18 20:30 Urine WBC Tntc /hpf (0-6) H 07/22/18 20:30 Ur Epithelial Cells 10 - 12 /hpf (0-5) H 07/22/18 20:30 Urine Bacteria Many /hpf (NONE) 07/22/18 20:30 - Hospital Course Hospital Course: 78 year old female with medical history of CAD, Pacemaker, COPD on home O2, diastolic CHF, hypothyroidism, HLD, pancreatitis, anxiety disorder and depression presents to the hospital for worsening abdominal pain for [address] abdomen/pelvis performed which demonstrated acute diverticulitis. Patient was evaluated by ID who placed on patient on Merrem. Patient was evaluated by psychiatry who recommended seroquel prn at night. Patient had poor appetite, patient will have Megace added and IVF. Patient developed chest pain and was not initially discharged. Patient had negative troponins along with repeat EKG, which was unchanged from previous. Patient will be evaluated by Dr. Solomon and then discharged to [facility]. Discharge Exam - Head Exam Head Exam: ATRAUMATIC, NORMAL INSPECTION, NORMOCEPHALIC - ENT Exam ENT Exam: Mucous Membranes Moist - Respiratory Exam Respiratory Exam: Clear to PA & Lateral, NORMAL BREATHING PATTERN, UNREMARKABLE - Cardiovascular Exam Cardiovascular Exam: RRR, +S1, +S2, Systolic Murmur - GI/Abdominal Exam GI & Abdominal Exam: Normal Bowel Sounds, Soft, Unremarkable. absent: Distended, Guarding, Rebound, Tenderness - Extremities Exam Extremities exam: normal inspection - Neurological Exam Neurological exam: Alert, CN II-XII Intact Additional comments: Oriented x 1 - Psychiatric Exam Psychiatric exam: Normal Affect, Normal Mood - Skin Skin Exam: Dry, Intact, Normal Color, Warm Discharge Plan - Discharge Medications Prescriptions: Megestrol Acetate [Megace] 40 mg PO DAILY 30 Days cup Meropenem [Merrem] 1 gm IV Q12 1 Days #2 vial QUEtiapine [SEROquel] 12.5 mg PO HS PRN 30 Days tab PRN Reason: Agitation - Follow Up Plan Condition: FAIR Disposition: TRANSF TO SNF Instructions: Heart Failure, Adult (DC), Diverticulitis (DC), Pressure Sores (DC), How to Prevent Pressure Sores, Exacerbation of COPD (DC) Referrals: Gregory Estrada MD [Staff Provider] - <Gregory Estrada - Last Filed: 07/30/18 18:20> Provider - Provider Date of Admission: 07/22/18 21:43 Attending physician: Gregory Estrada MD Consults: 07/23/18 01:08 Social Work Referral Routine Comment: Beatriz score Physician Instructions: Reason For Exam: Beatriz risk 11 07/23/18 01:14 Nursing Referral for Wound Care Routine Comment: Physician Instructions: Reason For Exam: 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, stage 2 left glueal 07/23/18 07:47 Infectious Disease Consult Routine Comment: Consulting Provider: Fausto Wild Consulting Physician: Fausto Wild Reason for Consult: Diverticulitis; Levofloxacin/Ceftriaxone allergy 07/23/18 09:33 TCU [Evaluation for TRCU] Routine Comment: Physician Instructions: Reason For Exam: deconditioning 07/27/18 09:39 Psychiatry Consult Routine Comment: Consulting Provider: Cordelia Gates Consulting Physician: Cordelia Gates Reason for Consult: Delirium 07/29/18 09:53 Cardiology Consult Routine Comment: Consulting Provider: Jefferson Solomon Consulting Physician: Jefferson Solomon Reason for Consult: Chest pain Hospital Course - Lab Results Lab Results: Micro Results 07/22/18 21:20 Blood Blood Culture - Final NO GROWTH AFTER 5 DAYS 07/22/18 21:20 Blood Gram Stain - Final TEST NOT PERFORMED 07/22/18 21:50 Blood Blood Culture - Final NO GROWTH AFTER 5 DAYS 07/22/18 21:50 Blood Gram Stain - Final TEST NOT PERFORMED 07/22/18 20:30 Urine,Catheterized Urine Culture - Final Escherichia Coli Most Recent Lab Values WBC 12.5 10^3/uL (4.5-11.0) H D 07/29/18 07:30 RBC 4.80 10^6/uL (3.5-6.1) 07/29/18 07:30 Hgb 14.8 g/dL (12.0-16.0) 07/29/18 07:30 Hct 44.8 % (36.0-48.0) 07/29/18 07:30 MCV 93.3 fl (80.0-105.0) 07/29/18 07:30 MCH 30.8 pg (25.0-35.0) 07/29/18 07:30 MCHC 33.0 g/dl (31.0-37.0) 07/29/18 07:30 RDW 13.9 % (11.5-14.5) 07/29/18 07:30 Plt Count 265 10^3/uL (120.0-450.0) 07/29/18 07:30 MPV 10.5 fl (7.0-11.0) 07/29/18 07:30 Neut % (Auto) 76.3 % (50.0-68.0) H 07/22/18 18:32 Lymph % (Auto) 10.7 % (22.0-35.0) L 07/22/18 18:32 [place] % (Auto) 12.4 % (1.0-6.0) H 07/22/18 18:32 Eos % (Auto) 0.5 % (1.5-5.0) L 07/22/18 18:32 Baso % (Auto) 0.1 % (0.0-3.0) 07/22/18 18:32 Lymph # (Auto) 1.5 (1.2-3.4) 07/22/18 18:32 [place] # (Auto) 1.7 (0.1-0.6) H 07/22/18 18:32 Eos # (Auto) 0.1 (0.0-0.7) 07/22/18 18:32 Baso # (Auto) 0.01 K/mm3 (0.0-2.0) 07/22/18 18:32 Absolute Neuts (auto) 10.74 (1.4-6.5) H 07/22/18 18:32 PT 12.2 SECONDS (9.4-12.5) 07/22/18 18:32 INR 1.10 07/22/18 18:32 APTT 34.7 Seconds (26.9-38.3) 07/22/18 18:32 pO2 129 mm/Hg (30-55) H 07/22/18 18:32 VBG pH 7.35 (7.32-7.43) 07/22/18 18:32 VBG pCO2 39.0 (40-60) L 07/22/18 18:32 VBG HCO3 21.5 mmol/l (21-28) 07/22/18 18:32 VBG Total CO2 22.7 mmol.L (22-28) 07/22/18 18:32 VBG O2 Sat (Calc) 100.0 % (40-65) H 07/22/18 18:32 VBG Base Excess -3.8 mmol/L (0.0-2.0) L 07/22/18 18:32 VBG Potassium 12.2 mmol/L (3.6-5.2) H* 07/22/18 18:32 Sodium 127.0 mmol/L (132-148) L 07/22/18 18:32 Chloride 98.0 mmol/L (98-107) 07/22/18 18:32 Glucose 119 mg/dl (65-105) H 07/22/18 18:32 Lactate 1.4 mmol/L (0.7-2.1) 07/22/18 18:32 FiO2 21.0 % 07/22/18 18:32 Blood Gas Comments Specimen grossly hemolyzed 07/22/18 18:32 Crit Value Called To Miranda agustin 07/22/18 18:32 Crit Value Called By Izabella 07/22/18 18:32 Blood Gas Notified Time 1845 07/22/18 18:32 Sodium 140 mmol/L (132-148) 07/29/18 07:30 Potassium 3.1 mmol/L (3.6-5.0) L 07/29/18 07:30 Chloride 101 mmol/L (98-107) 07/29/18 07:30 Carbon Dioxide 32 mmol/L (21-33) 07/29/18 07:30 Anion Gap 11 (10-20) 07/29/18 07:30 BUN 18 mg/dL (7-21) 07/29/18 07:30 Creatinine 0.7 mg/dl (0.7-1.2) 07/29/18 07:30 Est GFR ( Amer) > 60 07/29/18 07:30 Est GFR (Non-Af Amer) > 60 07/29/18 07:30 Random Glucose 108 mg/dL (70-110) 07/29/18 07:30 Calcium 9.8 mg/dL (8.4-10.5) 07/29/18 07:30 Phosphorus 2.4 mg/dL (2.5-4.5) L 07/29/18 07:30 Magnesium 1.5 mg/dL (1.7-2.2) L 07/29/18 07:30 Total Bilirubin 0.6 mg/dL (0.2-1.3) 07/29/18 07:30 AST 55 U/L (14-36) H D 07/29/18 07:30 ALT 55 U/L (7-56) 07/29/18 07:30 Alkaline Phosphatase 109 U/L (38-126) 07/29/18 07:30 Troponin I 0.02 ng/mL D 07/29/18 12:30 Total Protein 6.4 g/dL (5.8-8.3) 07/29/18 07:30 Albumin 3.4 g/dL (3.0-4.8) 07/29/18 07:30 Globulin 3.0 gm/dL 07/29/18 07:30 Albumin/Globulin Ratio 1.1 (1.1-1.8) 07/29/18 07:30 Lipase 190 U/L (23-300) 07/22/18 19:28 Venous Blood Potassium 12.2 mmol/L (3.6-5.2) H* 07/22/18 18:32 Urine Color Yellow (YELLOW) 07/22/18 20:30 Urine Appearance Sl cloudy (CLEAR) 07/22/18 20:30 Urine pH 5.5 (4.7-8.0) 07/22/18 20:30 Ur Specific [place] 1.020 (1.005-1.035) 07/22/18 20:30 Urine Protein Trace mg/dL (<30 mg/dL) H 07/22/18 20:30 Urine Glucose (UA) Negative mg/dL (NEGATIVE) 07/22/18 20:30 Urine Ketones Negative mg/dL (NEGATIVE) 07/22/18 20:30 Urine Blood Small (NEGATIVE) H 07/22/18 20:30 Urine Nitrate Negative (NEGATIVE) 07/22/18 20:30 Urine Bilirubin Small (NEGATIVE) H 07/22/18 20:30 Urine Urobilinogen 0.2 E.U./dL (<1 E.U./dL) 07/22/18 20:30 Ur Leukocyte Esterase Moderate Monica/uL (NEGATIVE) H 07/22/18 20:30 Urine RBC 10 - 15 /hpf (0-2) H 07/22/18 20:30 Urine WBC Tntc /hpf (0-6) H 07/22/18 20:30 Ur Epithelial Cells 10 - 12 /hpf (0-5) H 07/22/18 20:30 Urine Bacteria Many /hpf (NONE) 07/22/18 20:30 - Hospital Course Hospital Course: Patient was seen and examined by me. I have reviewed the note of the pediatric medical assistant and have gone over the plan of care. I agree with the note. I have reviewed the medications and the last labs.
[2018-07-29 15:44] VITALS: BP 134/92; PULSE 68; TEMP 97.6; O2SAT 100
--- NOTE | 2018-07-29 20:06 | PN ---
DATE: 07/29/2018 SUBJECTIVE: Overnight the patient had chest pain, that is why the discharge was postponed. This freelance copywriter is following up on the patient. The patient presented to be very confused. The patient said that she needs to have more time to get this freelance copywriter better and to get to know each other. The patient obviously did not know whom she was talking with. The patient had episodes of falling asleep, waking up during the interview. Collaterals were obtained from the patient's daughter who is next to her. The patient's daughter is power of assistant prosecuting attorney. As per daughter, the patient is very confused and this is not the patient's baseline. This freelance copywriter educated again about the plan and Seroquel 12.5 mg as needed discussed again. The patient daughter was in agreement with that. PHYSICAL EXAMINATION: VITAL SIGNS: Reviewed, seems to be stable. MENTAL STATUS EXAM: The patient presented very confused. The patient did not know where she is. The patient wanted to know this freelance copywriter better, appears to be confused, and did not know whom she was talking with. The patient has alternation of mental status, at one minute she is okay and the other minute she is very confused. The patient denied any thoughts of harming herself or others. Insight and judgment seems to be very limited. Impulses are unpredictable. LABORATORY DATA: Labs reviewed. The patient has leukocytosis. Coagulation reviewed. Chemistry reviewed. Potassium was high at the time of admission, today potassium is 3.1. Urinalysis showed leukocyte esterase moderate. MEDICATIONS: Reviewed. The patient is on DuoNeb, Xanax 0.25 mg three times a day as needed for anxiety, aspirin, Lipitor, Pepcid, Lasix, Synthroid, Megace, Merrem, Lopressor, morphine sulfate, MiraLax, potassium chloride, Seroquel 12.5 mg at the nighttime as needed for agitation and psychosis, and Aldactone. IMPRESSION: Obviously, the patient is in delirium stage due to urinary tract infection. The patient also has history of depression and anxiety. PLAN: Continue current management. Continue current medication. We will follow up and advise accordingly. Seroquel as needed for agitation and psychosis. Risks, benefits and alternatives discussed with the patient's power of assistant prosecuting attorney. Thank you very much for letting me participate in care of your patient. Should you have any questions, give me a call back. Cordelia Gates MD
--- NOTE | 2018-07-29 22:27 | CARD ---
APPROVED REPORT Date of service: 07/29/2018 EKG Measurement Heart [id number] ID [id number] <Conclusion> Sinus rhythm with marked sinus arrhythmia Right axis deviation Pulmonary disease pattern Nonspecific ST and T wave abnormality Abnormal ECG
--- NOTE | 2018-07-29 22:34 | CARD ---
APPROVED REPORT Date of service: 07/29/2018 EKG Measurement Heart [id number] <Conclusion> Normal sinus rhythm with sinus arrhythmia Right axis deviation Possible Right ventricular hypertrophy Nonspecific ST and T wave abnormality Abnormal ECG
--- NOTE | 2018-07-29 23:58 | PN ---
DATE: 07/29/2018 SUBJECTIVE: The patient is in bed in no acute distress, nontoxic. PHYSICAL EXAMINATION: VITAL SIGNS: Temperature is 97, blood pressure is 130/90, respiratory rate 20, heart rate of 68. HEENT: Unremarkable. NECK: Supple. LUNGS: Decreased breath sounds. HEART: Normal S1 and S2. ABDOMEN: Soft, nontender. LABORATORY DATA: Reveals the patient's white count of 12,500, hemoglobin of 14. Chemistry reveals a BUN of 18, creatinine of 0.7. Urinalysis is noted and urine culture. ASSESSMENT AND PLAN: A 78-year-old female who seen early this morning in room 572, bed 1. History of hyperlipidemia, hypertension, hypothyroidism, heart failure with preserved ejection fraction, coronary artery disease, status post cardiac pacemaker, chronic obstructive lung disease, chronic respiratory failure on home O2 therapy, admitted with abdominal pain, constipation, found to have sepsis secondary to diverticulitis and Escherichia coli in the urine. Completed 7 days of meropenem. ALLERGIC TO LEVAQUIN AND CEFTRIAXONE. Macho Mark MD
--- NOTE | 2018-07-30 08:24 | CON ---
DATE: 07/29/2018 CONSULTATION Patient is in room# 572, Bed 1. REASON FOR CONSULTATION: Chest pain. HISTORY OF PRESENT ILLNESS: The patient is a 78-year-old female who has severe COPD, on home oxygen; CHF secondary to diastolic LV dysfunction, hypothyroidism, history of pacemaker insertion, depression, multiple admissions with exacerbation of COPD and shortness of breath, was admitted to the hospital with abdominal pain. The patient last night complained of chest pain. Now she is chest pain-free, so consultation has been asked for evaluation of the chest pain. The patient was lying flat in bed without any respiratory distress and she says she has no chest pain at present. PAST MEDICAL HISTORY: Significant for COPD, CHF secondary to diastolic dysfunction, atrial fibrillation which is paroxysmal, anxiety disorder, depression, hypertension, status post permanent pacemaker insertion and the patient already had a pacemaker generator change. PAST SURGICAL HISTORY: Positive for pacemaker insertion and generator change, knee surgery, and she also had cardiac catheterization. PREVIOUS CARDIAC WORKUP: The patient had a stress test in 05/2017 that showed ischemia. The patient underwent a cardiac catheterization on 06/11/2018, left and right heart catheterization revealed normal coronaries, preserved LV function with ejection fraction of 60%. ADP was in the range of 20. The patient also had right heart catheterization because of the patient's repeated admission with this exacerbation of COPD, so to rule out pulmonary hypertension; that revealed RA pressure of 15, right ventricle pressure was 44/15, pulmonary artery pressure was 40/25, mean PA pressure was 32, pulmonary capillary wedge pressure was 24. The patient's echocardiogram on 06/09/2017 showed ejection fraction of 55%, [id number] aortic regurgitation, [id number] mitral regurgitation, mild tricuspid regurgitation, RV systolic pressure of 35 mm/Hg. The patient had a repeat echo on 04/13/2018 that revealed ejection fraction of 65%. Left coronary cusp was heavily calcified, moderate aortic regurgitation, mild mitral regurg, mild tricuspid regurg, RV systolic pressure of 31 mm/Hg, pacemaker leads seen in the right atrium and right ventricle, aortic sclerosis versus mild aortic stenosis. When compared to previous echo of 06/09/2017, aortic valve appears the same except AR is getting more than before. PERSONAL HISTORY: The patient used to smoke excessively, stopped about 3 to 4 years ago, used to smoke one pack a day; denies any alcohol abuse. Denies any illicit drug abuse. HOME MEDICATIONS: The list of home medications that the patient was on: Oxycodone 10 mg p.o. every six hourly, spironolactone 50 mg daily, Seroquel 12.5 mg p.o. h.s. p.r.n., K-Dur 20 daily, MiraLax 17 g p.o. b.i.d., metoprolol tartrate 25 mg p.o. daily, Megace 40 mg p.o. daily, Synthroid 100 mcg p.o. daily, Lasix 40 daily, Pepcid 40 p.o. daily, Lipitor 10 daily, aspirin 81 daily, DuoNeb hand nebulizer therapy. The patient was on home oxygen. PHYSICAL EXAMINATION: VITAL SIGNS: Blood pressure 134/92, respirations 20, pulse 68, temperature 97.6. HEENT: Head is normocephalic. Eyes, pupils normal. Conjunctivae normal. Nose and throat normal. NECK: JVP low. Carotid equal. Thorax, AP diameter normal. LUNGS: No significant rales. CARDIOVASCULAR: S1, S2. ABDOMEN: Soft, no tenderness. No organomegaly. Bowel sounds normal. EXTREMITIES: No clubbing, no cyanosis. LABORATORY DATA: WBC 12.5, hemoglobin 14.8, hematocrit 44.8. Platelets 265,000. Sodium 140, potassium 3.1, BUN 18, creatinine 0.7, random glucose 108, phosphorus 2.4, magnesium 1.5, calcium 9.8. Troponin x3 negative. EKG showed normal sinus rhythm with sinus arrhythmia, right ventricular hypertrophy, nonspecific ST-T wave changes. DIAGNOSES: 1. The patient has chest pain; patient has musculoskeletal pain because she has local tenderness and when you do local tenderness, she says it is actually the same pain which she had last night. 2. Chronic obstructive pulmonary disease, abdominal pain, status pacemaker insertion. 3. History of congestive heart failure with left ventricular diastolic dysfunction. 4. Depression. 5. Pacemaker battery change. 6. Atrial fibrillation, paroxysmal. 7. Anxiety disorder. 8. Hypertension. 9. Chest pain, musculoskeletal, with anterior chest wall tenderness. PLAN: The patient is on spironolactone 50 daily, aspirin 81 daily, furosemide 40 mg b.i.d., atorvastatin 10 daily, metoprolol 25 daily. Magnesium sulfate IV 2 g has been already given, Megace 40 daily, potassium 40 p.o. has been also given. We will add K-Dur 20 mEq p.o. daily to therapy because potassium is 3.1 and in the rehab, they should follow her electrolytes and the patient from cardiac point of view, can go forth to rehab facility. Jefferson Solomon MD
--- NOTE | 2018-07-30 09:22 | CP.PCM.PCO ---
Physician Communication Note - Physician Communication Note Physician Communication Note: pt was d/c 07/29/18
== END 2018-07-29 20:30 | DRG 871 ==
LOC: ED 17:12 → ERH 21:43 → 5RSO 23:09
PROVIDERS: ADMIT Internal Medicine Nephrology; ATTEND Internal Medicine Nephrology
DX: A41.9 Sepsis, unspecified organism (principal); L89.153 Pressure ulcer of sacral region, stage 3; K57.32 Diverticulitis of large intestine without perforation or abscess without bleeding; I50.32 Chronic diastolic (congestive) heart failure; N39.0 Urinary tract infection, site not specified; J96.10 Chronic respiratory failure, unspecified whether with hypoxia or hypercapnia; E86.0 Dehydration; I11.0 Hypertensive heart disease with heart failure; K59.00 Constipation, unspecified; J44.9 Chronic obstructive pulmonary disease, unspecified; I25.10 Atherosclerotic heart disease of native coronary artery without angina pectoris; E03.9 Hypothyroidism, unspecified; F41.9 Anxiety disorder, unspecified; F32.9 Major depressive disorder, single episode, unspecified; K42.9 Umbilical hernia without obstruction or gangrene; G89.29 Other chronic pain; M54.9 Dorsalgia, unspecified; Z95.0 Presence of cardiac pacemaker; Z99.81 Dependence on supplemental oxygen; E86.9 Volume depletion, unspecified; B96.20 Unspecified Escherichia coli [E. coli] as the cause of diseases classified elsewhere; Z66 Do not resuscitate; E78.5 Hyperlipidemia, unspecified; F41.8 Other specified anxiety disorders; H91.90 Unspecified hearing loss, unspecified ear; I08.3 Combined rheumatic disorders of mitral, aortic and tricuspid valves; L89.322 Pressure ulcer of left buttock, stage 2; I48.0 Paroxysmal atrial fibrillation; K21.9 Gastro-esophageal reflux disease without esophagitis; N28.9 Disorder of kidney and ureter, unspecified; Z79.82 Long term (current) use of aspirin; Z79.899 Other long term (current) drug therapy; Z86.010 Personal history of colon polyps; Z87.891 Personal history of nicotine dependence; Z88.1 Allergy status to other antibiotic agents; Z90.49 Acquired absence of other specified parts of digestive tract; Z87.892 Personal history of anaphylaxis; Z98.49 Cataract extraction status, unspecified eye